=== PATIENT | male | born 1950 | race Caucasian/White ===

== ENCOUNTER → 2017-12-16 10:30 | Outpatient (CLI) | payer OTHER, MEDICARE, SELFPAY ==
--- NOTE | 2017-12-16 10:37 | RAD_ITS ---
STUDY: X-RAY CHEST REASON FOR EXAM: Male, 67 years old. Right lateral chest pain and clavicular pain following injury. TECHNIQUE: PA and lateral views of the chest. COMPARISON: Comparison is made with prior study dated June 28, 2016. FINDINGS: Diffuse subcutaneous emphysema is seen in the upper thoracic and cervical regions. There is evidence of increased markings at the lung bases suggestive of atelectasis. There is blunting of both cosmetic angles. There is thickening of the lateral aspect of the right pleura. Nondisplaced fractures of the right fourth fifth sixth and possible seventh rib fractures. Normal size heart. Normal mediastinum and liliam. Normal visualized pulmonary arteries. There is atherosclerotic tortuosity of the aortic arch and descending thoracic aorta. There is demineralization of the osseous structures. There is degenerative osteoarthritis of the bilateral shoulders. There is no demonstrated abnormality of the visualized soft tissue structures of the upper abdomen. RAD/Chest PA and Lateral IMPRESSION: Subcutaneous emphysema seen in the upper thoracic and cervical regions. Right sided rib fractures with pleural thickening along the lateral wall of the right hemithorax with blunting of both costophrenic angles. Increased markings at the lung bases most likely secondary to atelectasis. Electronically Signed: Sanju Davenport MD at 11:01 EDT Tel [phone], Service support ,
--- NOTE | 2018-01-02 09:59 | ED.DCSUM_ITS ---
- ER Visit Summary Date of Service: 01/02/18 Chief Complaint: [CT scan result] History of Present Illness: The patient is a 67 M [was seen in the emergency department on December 16 after trauma related to a cow and was fully evaluated by Dr. Chapo Galindo in the emergency department. Patient had a CT scan of his brain and chest at that time. The initial CT scan of the brain was read as no intracranial hemorrhage. Today while working in the emergency department I received a call from neuroradiologist who was doing a random review for quality in the patient's CT of the brain was reviewed which now is being interpreted as a 3 mm subdural hematoma. Patient was initially discharged from the emergency department and he had a follow-up appointment with his primary care physician Dr. Antoni Henning on December 28.] Physical Examination: [] Test Results: [] Emergency Department Course and Treatment: [I discussed the patient's case with Dr. Antoni Henning over the telephone this morning. Dr. Henning stated that patient was doing well on December 28 and did not have any concern for significant head injury. Patient will be made aware of findings and follow-up will take place per Dr. Antoni Henning.] Treatment Plan: [] Disposition: [] Impression: [Subdural hematoma-remote] This note was generated with [employer] dictation software. It may contain incorrect words, spelling, and punctuation that were not noted in review of the chart prior to signing
== END ==
PROVIDERS: Family Provider Family Medicine; PCP Family Medicine; Visit Provider Physician Assistant Surgical
DX: T79.7XXA Traumatic subcutaneous emphysema, initial encounter (principal); X58.XXXA Exposure to other specified factors, initial encounter; S22.41XA Multiple fractures of ribs, right side, initial encounter for closed fracture; M89.8X1 Other specified disorders of bone, shoulder
CPT/HCPCS: 71046

== ENCOUNTER 2017-12-16 11:48 | Emergency (ER) | payer OTHER, MEDICARE, SELFPAY ==
[2017-12-16 11:49] VITALS: BP 143/85; PULSE 86; RESP 16; TEMP 37.2; O2SAT 95; BMI 37.8
--- NOTE | 2017-12-16 12:32 | CT_ITS ---
STUDY: CT BRAIN WITHOUT CONTRAST REASON FOR EXAM: Male, 67 years old. Head injury. Episode of loss of consciousness. RADIATION DOSAGE (If Supplied By Facility): CTDIvol = ( 44.99 ) mGy, DLP = ( 812.98 ) mGycm TECHNIQUE: Transaxial CT imaging of the brain was performed without administration of intravenous contrast material. Individualized dose optimization techniques were used for this CT. COMPARISON: None. FINDINGS: There is evidence of air seen within the soft tissues overlying the left side of the upper cervical spine and anterior midportion. Less amount of air is seen within the soft tissues overlying the right side of the C1 vertebrae. Normal calvarium. Normal size ventricles and extra-axial spaces for the patient's age. Normal white matter tracts of the cerebral hemispheres. Normal basal ganglia and thalami. Normal brainstem. Normal cerebellum. There is no intracranial hemorrhage. There are no findings of an acute ischemic infarction. Normal visualized paranasal sinuses. CT/Brain/Head without Contrast IMPRESSION: Small amount of air within the soft tissues surrounding the anterior and left side of the upper cervical spine. This was seen on the chest radiograph. Electronically Signed: Sanju Davenport MD at 13:04 EDT Tel [phone], Service support ,
--- NOTE | 2017-12-16 12:32 | CT_ITS ---
STUDY: CT CHEST WITHOUT CONTRAST REASON FOR EXAM: Male, 67 years old. Chest injury. RADIATION DOSAGE (If Supplied By Facility): CTDIvol = ( 19.56 ) mGy, DLP = ( 694.06 ) mGycm TECHNIQUE: Transaxial imaging was performed without the administration of intravenous contrast material. Multiplanar coronal and sagittal images were reformatted. Individualized dose optimization techniques were used for this CT. COMPARISON: None. FINDINGS: There is evidence of subcutaneous emphysema involving the lower cervical and upper thoracic region extending into the upper thorax more prominent on the right side. This extends into the mediastinum surrounding the great vessels as well as the trachea and tracheal bifurcation. Air is also seen within the soft tissues overlying the right thoracic cavity. There is evidence of a atelectasis and/or infiltrate at the lung bases worse on the right side. There is no evidence of pneumothorax. There are calcifications of the coronary arteries. Normal mediastinum. Normal hilar regions. Normal unenhanced pulmonary arteries. There is atherosclerotic calcification of the aortic arch and descending thoracic aorta. There are multi-level degenerative changes of the thoracic spine. Nondisplaced fractures of the right fourth and fifth ribs anterolaterally. Os chest right is of both shoulder joints. There is no demonstrated abnormality of the visualized upper abdomen. CT/Chest without Contrast IMPRESSION: Subcutaneous emphysema in the cervical region as well as the anterior thorax more prominent on the right side. Pneumomediastinum. No pneumothorax. Bibasilar atelectasis worse on the right side. Nondisplaced right rib fractures. Electronically Signed: Sanju Davenport MD at 13:10 EDT Tel [phone], Service support ,
[2017-12-16 12:56] VITALS: O2SAT 96
--- NOTE | 2017-12-16 14:04 | ED.VISSUMM ---
- ER Visit Summary Date of Service: 12/16/17 Chief Complaint: [] History of Present Illness: The patient is a 67 M [] Physical Examination: [] Test Results: [] Emergency Department Course and Treatment: [] Treatment Plan: [] Disposition: [] Impression: [] This note was generated with [employer] dictation software. It may contain incorrect words, spelling, and punctuation that were not noted in review of the chart prior to signing ED Disposition - Plan for ED Patient: Chief Complaint: Trauma Referrals: Antoni Henning MD [Primary Care Provider] -
[2017-12-16 15:51] VITALS: BP 144/98; PULSE 86; RESP 16; O2SAT 98
== END 2017-12-16 15:55 | disposition short-term general hospital (02) ==
PROVIDERS: Emergency Provider Emergency Medicine; Family Provider Family Medicine; PCP Family Medicine
DX: T79.7XXA Traumatic subcutaneous emphysema, initial encounter (principal); S22.41XA Multiple fractures of ribs, right side, initial encounter for closed fracture; W55.22XA Struck by cow, initial encounter; Y93.89 Activity, other specified; Y92.007 Garden or yard of unspecified non-institutional (private) residence as the place of occurrence of the external cause; E11.9 Type 2 diabetes mellitus without complications; Z79.84 Long term (current) use of oral hypoglycemic drugs; Z79.899 Other long term (current) drug therapy; M89.8X1 Other specified disorders of bone, shoulder
CPT/HCPCS: 70450; 71046; 71250; 99284

== ENCOUNTER → 2017-12-28 08:59 | Outpatient (CLI) | payer OTHER, MEDICARE, SELFPAY ==
--- NOTE | 2017-12-28 09:05 | RAD_ITS ---
STUDY: X-RAY CHEST REASON FOR EXAM: Male, 67 years old. Abnormal breathing. Recent trauma. TECHNIQUE: Frontal and lateral views of the chest. COMPARISON: 12/16/2017. FINDINGS: There is hyperinflation of the lungs consistent with chronic obstructive lung disease (COPD). No infiltrates or effusions. There is no demonstrated pleural abnormality. Normal size heart. Normal mediastinum and liliam. Normal visualized pulmonary arteries. Normal visualized aortic arch and descending thoracic aorta. There are diffuse degenerative changes of the visualized thoracic spine. There is degenerative osteoarthritis of the bilateral shoulders. There is no demonstrated abnormality of the visualized soft tissue structures of the upper abdomen. RAD/Chest PA and Lateral IMPRESSION: There are findings consistent with COPD. There is no evidence of acute chest disease. Electronically Signed: Darrell Elliott MD at 17:04 EDT , Service support ,
== END ==
PROVIDERS: Family Provider Family Medicine; PCP Family Medicine; Visit Provider Family Medicine
DX: J98.2 Interstitial emphysema (principal)
CPT/HCPCS: 71046

== ENCOUNTER → 2018-02-23 07:12 | Outpatient (CLI) | payer OTHER, MEDICARE, SELFPAY ==
--- NOTE | 2018-02-23 07:14 | MRI_ITS ---
STUDY: MRI RIGHT SHOULDER REASON FOR EXAM: Shoulder pain and limited range of motion, injury 6 weeks ago. TECHNIQUE: Standardized fat and water weighted pulse sequences were obtained in all 3 orthogonal planes. COMPARISON: Radiographs 10/17/2014. FINDINGS: There is supraspinatus tendinosis and a small intrasubstance partial-thickness tear of the distal anterior supraspinatus tendon at the greater tuberosity insertion (T2 coronal image 14). Normal infraspinatus tendon. There is mild subscapularis tendinosis and a small intermediate grade undersurface partial-thickness tear of the distal superior fibers of the subscapularis tendon (proton-density axial image 16) measuring 0.6 cm in length. Normal teres minor tendon. Normal supraspinatus muscle. Normal infraspinatus muscle. Normal subscapularis muscle. Normal teres minor muscle. There is glenohumeral arthrosis with marginal osteophytes of the humeral head, subchondral cystic change/mild bone edema and chondral loss (T2 coronal images 9-13). There are intra-articular bodies in the subscapularis recess (proton-density coronal images 16-21) and at the posterior aspect of the glenohumeral joint (proton-density sagittal image 3). There is cystic change of the posterior aspect of the greater tuberosity. There is tendinosis of the intracapsular long biceps tendon (T2 sagittal images 13-16). There is diffuse degeneration of the labrum. There is acromioclavicular arthrosis with hypertrophic changes (T2 sagittal images 17, 18). There is a Type II morphology (curved), with a neutral orientation. There is no subacromial-subdeltoid bursal fluid. Normal visualized coracohumeral and coracoacromial ligaments. Normal deltoid muscle. Normal trapezius muscle. MRI/Upper Ext Joint Only(Routine) IMPRESSION: Small undersurface partial-thickness tear and mild tendinosis of the subscapularis tendon. Small intrasubstance partial-thickness tear and tendinosis of the supraspinatus tendon. Glenohumeral arthrosis with intra-articular bodies and degeneration of the labrum. Tendinosis of the long biceps tendon. Acromioclavicular arthrosis. Electronically Signed: Haja Arredondo MD at 9:16 EDT Tel , Service support ,
== END ==
PROVIDERS: Family Provider Family Medicine; PCP Family Medicine; Visit Provider Orthopaedic Surgery
DX: M75.121 Complete rotator cuff tear or rupture of right shoulder, not specified as traumatic (principal)
CPT/HCPCS: 73221

== ENCOUNTER → 2018-03-31 09:12 | Outpatient (CLI) | payer OTHER, MEDICARE, SELFPAY ==
[2018-03-31 13:01] LABS: Absolute Lymphocyte Count 1.25 X10^3/ul (0.83-4.51); Absolute Neutrophil Count 5.6 X10^3/uL (2.0-7.7); Basophil# 0.03 X10^3/uL; Basophil% 0.4 % (0-1); Eosinophil# 0.18 X10^3/uL; Eosinophils% 2.4 % (0-5); Hematocrit 41.7 % (40-54); Hemoglobin 13.6 g/dl (13.0-16.5); Lymphocyte # 1.25 X10^3/ul (4.0); Lymphocyte % 16.4 % (19-41); Mean Corp Hgb Conc 32.6 g/gl (32-36); Mean Corpuscular Hgb 27.5 pg (27.0-32.0); Mean Corpuscular Volume 84.4 fL (80-94); Mean Platelet Vol. 10.7 fl (6.2-12.0); Monocyte# 0.51 X10^3/uL; Monocyte% 6.7 % (0-10); Neutrophil # 5.63 X10^3/uL (2.7-7.7); Neutrophil % 73.7 % (47-70); Platelet Count 256 K/mm3 (150-450); RBC Distribution Width CV 16.1 % (11.6-14.6); RBC Distribution Width SD 49.7 fl (35.1-43.9); Red Blood Count 4.94 M/mm3 (4.6-6.2); White Blood Count 7.6 K/mm3 (4.4-11.0)
[2018-03-31 13:06] LABS: POSITIVE COUNT NO; POSITIVE DIFFERENTIAL NO; POSITIVE MORPHOLOGY NO
[2018-03-31 13:18] LABS: Anion Gap 11 (5-15); BUN 20 mg/dL (7-18); BUN/Creat Ratio 18.5 RATIO (10-20); Calcium,Total 9.6 mg/dL (8.5-10.1); Chloride 102 mmol/L (98-107); Creatinine, Serum 1.08 mg/dL (0.70-1.30); EST Glomerular Filtration Rate 72 mL/min (>60); Est Glom Filt Rate - Afr Amer 87 mL/min (>60); Ferritin 14 ng/mL (26-388); Glucose 249 mg/dL (74-106); Iron 61 ug/dL (65-175); Potassium 4.4 mmol/L (3.5-5.1); Sodium Level 138 mmol/L (136-145); Thyroid Stim Hormone (TSH) 0.51 uIU/mL (0.358-3.74)
== END ==
PROVIDERS: Visit Provider Family Medicine
DX: E61.1 Iron deficiency (principal); E11.9 Type 2 diabetes mellitus without complications; E78.5 Hyperlipidemia, unspecified; I10 Essential (primary) hypertension
CPT/HCPCS: 36415; 80048; 82728; 83540; 84443; 85025

== ENCOUNTER → 2018-04-28 06:39 | Outpatient (CLI) | payer OTHER, MEDICARE, SELFPAY ==
[2018-04-28 07:29] LABS: PSA,Total - Annual Screen 1.21 ng/mL (0.00-4.00)
== END ==
PROVIDERS: Family Provider Family Medicine; PCP Family Medicine; Visit Provider Nurse Practitioner Adult Health
DX: Z12.5 Encounter for screening for malignant neoplasm of prostate (principal); K80.80 Other cholelithiasis without obstruction; K57.30 Diverticulosis of large intestine without perforation or abscess without bleeding; N40.0 Benign prostatic hyperplasia without lower urinary tract symptoms; N20.0 Calculus of kidney; R31.0 Gross hematuria
CPT/HCPCS: 36415; 74178; 84153; Q9967; G0103

== ENCOUNTER → 2018-08-09 07:02 | Outpatient (CLI) | payer OTHER, MEDICARE, SELFPAY ==
[2018-08-09 10:30] LABS: Albumin, Serum 3.7 g/dL (3.2-5.0)
== END ==
PROVIDERS: Family Provider Family Medicine; PCP Family Medicine; Referring Provider Specialist; Visit Provider Specialist
DX: Z01.812 Encounter for preprocedural laboratory examination (principal)
CPT/HCPCS: 36415; 82040

== ENCOUNTER → 2018-09-29 09:39 | Outpatient (CLI) | payer OTHER, MEDICARE, SELFPAY ==
[2018-09-29 12:13] LABS: Absolute Lymphocyte Count 1.11 X10^3/ul (0.83-4.51); Absolute Neutrophil Count 4.2 X10^3/uL (2.0-7.7); Basophil# 0.03 X10^3/uL; Basophil% 0.5 % (0-1); Eosinophil# 0.24 X10^3/uL; Eosinophils% 3.9 % (0-5); Hematocrit 40.9 % (40-54); Hemoglobin 13.1 g/dl (13.0-16.5); Lymphocyte # 1.11 X10^3/ul (4.0); Lymphocyte % 17.9 % (19-41); Mean Corpuscular Hgb 27.7 pg (27.0-32.0); Mean Corpuscular Volume 86.5 fL (80-94); Mean Platelet Vol. 10.4 fl (6.2-12.0); Monocyte# 0.57 X10^3/uL; Monocyte% 9.2 % (0-10); Neutrophil # 4.23 X10^3/uL (2.7-7.7); Neutrophil % 68.3 % (47-70); Platelet Count 279 K/mm3 (150-450); RBC Distribution Width SD 47.2 fl (35.1-43.9); Red Blood Count 4.73 M/mm3 (4.6-6.2); White Blood Count 6.2 K/mm3 (4.4-11.0)
[2018-09-29 12:20] LABS: POSITIVE COUNT NO; POSITIVE DIFFERENTIAL NO; POSITIVE MORPHOLOGY NO
[2018-09-29 12:35] LABS: Anion Gap 10 (5-15); BUN 15 mg/dL (7-18); BUN/Creat Ratio 19.4 RATIO (10-20); Calcium,Total 9.4 mg/dL (8.5-10.1); Chloride 105 mmol/L (98-107); Creatinine, Serum 0.77 mg/dL (0.70-1.30); EST Glomerular Filtration Rate 106 mL/min (>60); Est Glom Filt Rate - Afr Amer 129 mL/min (>60); Ferritin 20 ng/mL (26-388); Glucose 123 mg/dL (74-106); Iron 73 ug/dL (65-175); Potassium 4.5 mmol/L (3.5-5.1); Sodium Level 140 mmol/L (136-145); Thyroid Stim Hormone (TSH) 0.51 uIU/mL (0.358-3.74)
== END ==
PROVIDERS: Family Provider Family Medicine; PCP Family Medicine; Visit Provider Family Medicine
DX: E11.9 Type 2 diabetes mellitus without complications (principal); I10 Essential (primary) hypertension; E78.5 Hyperlipidemia, unspecified
CPT/HCPCS: 36415; 80048; 82728; 83540; 84443; 85025

== ENCOUNTER 2018-11-03 07:00 | Outpatient (RCR) | payer OTHER, MEDICARE, SELFPAY ==
--- NOTE | 2018-08-30 08:05 | HP.PTEVAL_ITS ---
Patient's Visit Information AVERY VASQUEZ is a 68 year old M referred to Physical Therapy by TEDDY Munguia with a diagnosis of R TSA. Date of Evaluation: 08/30/18 Physical Therapist: Pee Saucedo PT, ATC - Visit Plan Frequency: 2-3x /Week Duration: 4-6 Weeks Plan: P/AROM x 4 weeks, then transition to strengthening as tolerated. CP for pain - Subjective Findings: DOS: 08/15/18. Pt reports he had chronic R shoulder pain for several years. 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 Pt reports he thought he was going to have a rot cuff repair, but instead needed to have a total shoulder replacement. Pt reports he is doing well at this point as he has had very little pain. Pt reports he still has sleep difficulty as he has a hard time sleeping in his recliner. Pt is R hand dominant. Pt reports he has been taking his arm out of the sling while at home and can mostly get himself dressed, but is still limited with many ADL's. 0/10 pain at rest, 1/10 pain at worst over the last 3-4 days. - Pain R TSA Pain Intensity (Out of 10): 0 Pain Intensity Range: 1 - Objective Neuro: B UE sensation is WNL to light touch. Observation: Incisions are healing well with no signs of infection. ROM: R shoulder flex= 130 degrees, scap= 135 degrees. L shoulder AROM: flex= 140, abd= 140, IR WNL, ER 30 degrees. MMT: R shoulder not tested.. 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 Goal Time Frame: 4-6 Weeks Goal 4:: I with HEP Goal Time Frame: 4-6 Weeks - Rehabilitation Potential Physical Therapy Diagnosis: R shoulder pain, weakness, and limited ROM secondary to R TSA Rehabilitation Potential: Good - Anticipated Interventions Patient/Client Instruction: Educate patient on: Condition, Plan of Care For the Purpose of:: To improve self management Therapeutic Exercise to Include: Strength training, Body mechanics, Postural training, Flexibilty training, Passive ROM, Active ROM, Scapular Strength/Stabilization For the Purpose of:: To decrease pain, To increase ROM, To improve muscle performance and motor function Cryotherapy (ice pack, ice massage): Yes For the Purpose of:: To decrease pain Thank you for the opportunity to evaluate your patient. For Medicare and Medicare HMO plans, please review the plan of care and approve it. It will need to be FAXED BACK to us at [phone] for Medicare purposes. For Medicare only, by signing this I certify the plan of care. Please let me know if there are questions or concerns regarding this plan of care. Physician Signature: Da te:
--- NOTE | 2018-10-11 08:36 | HP.PTREVAL ---
TEDDY Munguia, It has been my pleasure to treat AVERY VASQUEZ over the last 18 visits for R TSA. Please see the progress note below for an update on the physical therapy plan of care! Subjective: Hardly no pain this date Objective/Function: R shoulder pain 09/14. R shoulder ROM: flex= 125, abd= 107, ER= 0, IR= minimally limited. R shoulder strength: Pt is 4+/5 in R UE with the exception of ER= 4-/5. 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 Goal Time Frame: 4-6 Weeks Goal 4:: I with HEP Goal Time Frame: 4-6 Weeks Anticipated Interventions Patient/Client Instruction: Educate patient on: Condition, Plan of Care For the Purpose of:: To improve self management Therapeutic Exercise to Include: Strength training, Body mechanics, Postural training, Flexibilty training, Passive ROM, Active ROM, Scapular Strength/Stabilization For the Purpose of:: To decrease pain, To increase ROM, To improve muscle performance and motor function Cryotherapy (ice pack, ice massage): Yes For the Purpose of:: To decrease pain Please do not hesitate to contact me at [phone] by phone or if you have questions or concerns regarding this new plan of care! Sincerely, Pee Saucedo, PT, ATC
--- NOTE | 2018-11-03 07:28 | HP.PTDCSUM ---
HP - PT D/C Summary It has been my pleasure to treat AVERY VASQUEZ under orders from TEDDY Munguia, for the diagnosis of R TSA for a total of 24 visit(s). Discharge Date: Please see the following information for a summary of their discharge status. - Subjective Subjective: Pt reports he feels really good. Still has difficulty with putting on his seatbelt. - Pain R TSA Pain Intensity (Out of 10): 0 - Overall Improvement % Improvement: 80 - Objective Objective/Function: R shoulder ROM: Flex= 130, abd= 110, ER= 0, IR= minimally limited. R shoulder MMT: ER is 4+/5. All other motions are 5/5 throughout. pain is 0/10, Increases to 3/10 when he moves it wrong. pt is I with HEP. 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 Thank you for the referral of this patient. Sincerely, Pee Saucedo, PT, ATC
== END 2018-11-03 07:57 | disposition home or self-care (01) ==
LOC: PT 07:00
PROVIDERS: Family Provider Family Medicine; PCP Family Medicine; Referring Provider Physician Assistant Surgical; Visit Provider Physician Assistant Surgical
DX: M19.011 Primary osteoarthritis, right shoulder (principal); S46.011D Strain of muscle(s) and tendon(s) of the rotator cuff of right shoulder, subsequent encounter
CPT/HCPCS: 97110; 97140; 97161; 97530

== ENCOUNTER → 2019-07-02 | Outpatient (CLI) | payer OTHER, MEDICARE, SELFPAY ==
[2019-07-02 17:17] LABS: Anion Gap 6 (5-15); BUN 21 mg/dL (7-18); BUN/Creat Ratio 23.6 RATIO (10-20); Calcium,Total 9.4 mg/dL (8.5-10.1); Chloride 105 mmol/L (98-107); Creatinine, Serum 0.89 mg/dL (0.70-1.30); EST Glomerular Filtration Rate 90 mL/min (>60); Est Glom Filt Rate - Afr Amer 109 mL/min (>60); Glucose 132 mg/dL (74-106); Potassium 4.1 mmol/L (3.5-5.1); Sodium Level 140 mmol/L (136-145)
== END | disposition home or self-care (01) ==
LOC: BFHLAB 14:56
PROVIDERS: Family Provider Family Medicine; PCP Family Medicine; Visit Provider Family Medicine
DX: I10 Essential (primary) hypertension (principal)
CPT/HCPCS: 36415; 80048

== ENCOUNTER → 2020-04-15 08:45 | Outpatient (CLI) | payer MEDICARE, OTHER, SELFPAY ==
[2020-04-15 12:24] LABS: Absolute Lymphocyte Count 1.43 X10^3/uL (0.83-4.51); Absolute Neutrophil Count 4.4 X10^3/uL (2.0-7.7); Basophil# 0.05 X10^3/uL; Basophil% 0.7 % (0-1); Eosinophil# 0.31 X10^3/uL; Eosinophils% 4.6 % (0-5); Hematocrit 39.4 % (40-54); Hemoglobin 12.2 g/dL (13.0-16.5); Lymphocyte # 1.43 X10^3/ul (4.0); Mean Corpuscular Hgb 26.8 pg (27.0-32.0); Mean Corpuscular Volume 86.6 fL (80-94); Mean Platelet Vol. 10.4 fl (6.2-12.0); Monocyte# 0.58 X10^3/uL; Monocyte% 8.5 % (0-10); NRBC Flagged by Analyzer 0 % (0-5); Neutrophil # 4.42 X10^3/uL (2.7-7.7); Neutrophil % 64.9 % (47-70); Platelet Count 292 K/mm3 (150-450); RBC Distribution Width CV 15.2 % (11.6-14.6); RBC Distribution Width SD 47.8 fl (35.1-43.9); Red Blood Count 4.55 M/mm3 (4.6-6.2); White Blood Count 6.8 K/mm3 (4.4-11.0)
[2020-04-15 12:50] LABS: Hemoglobin A1c 6.9 % (3.8-5.6)
[2020-04-15 13:13] LABS: ALB/GLOB Ratio 0.9 RATIO (0.9-2.4); AST(SGOT) 15 U/L (15-37); Alanine Aminotransfer ALT/SGPT 34 U/L (16-61); Albumin, Serum 3.6 g/dL (3.2-5.0); Alkaline Phosphatase 96 U/L (45-117); Anion Gap 11 (5-15); BUN 19 mg/dL (7-18); BUN/Creat Ratio 21.6 RATIO (10-20); Calcium,Total 9.2 mg/dL (8.5-10.1); Chloride 103 mmol/L (98-107); Cholesterol 140 mg/dL (200); Creatinine, Serum 0.88 mg/dL (0.70-1.30); EST Glomerular Filtration Rate 91 mL/min (>60); Est Glom Filt Rate - Afr Amer 110 mL/min (>60); Globulin 3.8 g/dL (2.2-4.2); Glucose 145 mg/dL (74-106); High Density Lipoprotein 55 mg/dL; PSA,Total - Annual Screen 1.25 ng/mL (0.00-4.00); Potassium 4.3 mmol/L (3.5-5.1); Protein, Total 7.4 g/dL (6.4-8.2); Sodium Level 137 mmol/L (136-145); Triglycerides 54 mg/dL; Very Low Density Lipoprotein 11 mg/dL (5-40)
== END ==
PROVIDERS: PCP Family Medicine; Visit Provider Family Medicine
DX: E11.9 Type 2 diabetes mellitus without complications (principal); E78.5 Hyperlipidemia, unspecified; E61.1 Iron deficiency; I10 Essential (primary) hypertension; Z12.5 Encounter for screening for malignant neoplasm of prostate; Z80.42 Family history of malignant neoplasm of prostate
CPT/HCPCS: 36415; 80053; 80061; 83036; 84153; 85025; G0103

== ENCOUNTER → 2020-07-21 09:40 | Outpatient (CLI) | payer MEDICARE, OTHER, SELFPAY ==
[2020-07-21 12:35] LABS: Absolute Neutrophil Count 3.7 X10^3/uL (2.0-7.7); Basophil# 0.05 X10^3/uL; Basophil% 0.9 % (0-1); Eosinophil# 0.14 X10^3/uL; Eosinophils% 2.5 % (0-5); Hematocrit 41.7 % (40-54); Hemoglobin 12.8 g/dL (13.0-16.5); Lymphocyte % 21.2 % (19-41); Mean Corp Hgb Conc 30.7 g/dL (32-36); Mean Corpuscular Hgb 26.8 pg (27.0-32.0); Mean Corpuscular Volume 87.4 fL (80-94); Mean Platelet Vol. 10.4 fl (6.2-12.0); Monocyte# 0.54 X10^3/uL; Monocyte% 9.5 % (0-10); NRBC Flagged by Analyzer 0 % (0-5); Neutrophil # 3.73 X10^3/uL (2.7-7.7); Neutrophil % 65.7 % (47-70); Platelet Count 278 K/mm3 (150-450); RBC Distribution Width CV 14.9 % (11.6-14.6); RBC Distribution Width SD 48.3 fl (35.1-43.9); Red Blood Count 4.77 M/mm3 (4.6-6.2); White Blood Count 5.7 K/mm3 (4.4-11.0)
[2020-07-21 13:01] LABS: Ferritin 14 ng/mL (26-388); Iron 68 ug/dL (65-175)
[2020-07-21 14:09] LABS: Vitamin B12 600 pg/mL (211-911)
== END ==
PROVIDERS: PCP Family Medicine; Visit Provider Family Medicine
DX: D64.9 Anemia, unspecified (principal)
CPT/HCPCS: 36415; 82607; 82728; 83540; 85025

== ENCOUNTER → 2020-11-17 09:55 | Outpatient (CLI) | payer MEDICARE, OTHER, SELFPAY ==
[2020-11-17 12:36] LABS: Absolute Lymphocyte Count 1.25 X10^3/uL (0.83-4.51); Absolute Neutrophil Count 4.1 X10^3/uL (2.0-7.7); Basophil# 0.03 X10^3/uL; Basophil% 0.5 % (0-1); Eosinophil# 0.27 X10^3/uL; Eosinophils% 4.4 % (0-5); Hematocrit 44.6 % (40-54); Hemoglobin 14.5 g/dL (13.0-16.5); Lymphocyte # 1.25 X10^3/ul (4.0); Lymphocyte % 20.6 % (19-41); Mean Corp Hgb Conc 32.5 g/dL (32-36); Mean Corpuscular Hgb 28.9 pg (27.0-32.0); Mean Corpuscular Volume 88.8 fL (80-94); Mean Platelet Vol. 10.5 fl (6.2-12.0); Monocyte# 0.46 X10^3/uL; Monocyte% 7.6 % (0-10); NRBC Flagged by Analyzer 0 % (0-5); Neutrophil # 4.06 X10^3/uL (2.7-7.7); Neutrophil % 66.7 % (47-70); Platelet Count 246 K/mm3 (150-450); RBC Distribution Width CV 14.4 % (11.6-14.6); RBC Distribution Width SD 46.5 fl (35.1-43.9); Red Blood Count 5.02 M/mm3 (4.6-6.2); White Blood Count 6.1 K/mm3 (4.4-11.0)
[2020-11-17 12:58] LABS: Anion Gap 3 (5-15); BUN 19 mg/dL (7-18); Calcium,Total 9.8 mg/dL (8.5-10.1); Chloride 105 mmol/L (98-107); EST Glomerular Filtration Rate 88 mL/min (>60); Est Glom Filt Rate - Afr Amer 107 mL/min (>60); Ferritin 32 ng/mL (26-388); Glucose 128 mg/dL (74-106); Iron 103 ug/dL (65-175); Potassium 4.4 mmol/L (3.5-5.1); Sodium Level 136 mmol/L (136-145)
== END ==
PROVIDERS: PCP Family Medicine; Visit Provider Family Medicine
DX: I10 Essential (primary) hypertension (principal); E61.1 Iron deficiency
CPT/HCPCS: 36415; 80048; 82728; 83540; 85025

== ENCOUNTER → 2021-12-30 | Outpatient (CLI) | payer MEDICARE, OTHER, SELFPAY ==
--- NOTE | 2021-12-30 07:16 | CT_ITS ---
STUDY: CT LEFT SHOULDER REASON FOR EXAM: Male, 71 years old. LFT SHOULDER OSTEOARTHRITIS RADIATION DOSAGE (If Supplied By Facility): CTDIvol = ( 33.23 ) mGy, DLP = ( 694.63 ) mGycm TECHNIQUE: The patient was scanned in a multi detector CT scanner. High resolution transaxial imaging was performed without the administration of intravenous contrast material. Sagittal and coronal images were reconstructed. Individualized dose optimization techniques were used for this CT. COMPARISON: X-ray 10/25/2014 FINDINGS: There is severe osteoarthritis, with severe articular joint space narrowing, osteoarthritic spurring, articular remodeling, and with articular erosions. Normal glenoid rim, neck and visualized scapula. Normal humeral head, neck and tuberosities. Normal coracoid process. Normal visualized lateral clavicle. There is mild osteoarthritis with articular joint space narrowing. There is a Type II morphology (curved), with a neutral orientation. Normal visualized muscles and soft tissue structures. CT/Extremity Upper without Contra IMPRESSION: Severe glenohumeral joint arthrosis. Electronically Signed: Narinder Mack MD at 17:06 EDT ,
== END | disposition home or self-care (01) ==
PROVIDERS: PCP Family Medicine; Referring Provider Specialist; Visit Provider Specialist
DX: M19.021 Primary osteoarthritis, right elbow (principal)
CPT/HCPCS: 73200

== ENCOUNTER → 2022-02-15 | Outpatient (CLI) | payer MEDICARE, OTHER, SELFPAY ==
--- NOTE | 2022-02-05 12:23 | HP.PCM_ITS ---
History and Physical History and Physical [facility] Patient Name: Nicola Crews : 1950 From: KUMAR ZAFAR PA-C DATE OF SURGERY: 02/24/2022 SCHEDULED PROCEDURE: left reverse total shoulder arthroplasty HISTORY OF PRESENT ILLNESS: Preoperative history and physical exam was performed on February 05, 2022. This is a 71-year-old male who is been having ongoing left shoulder pain for nearly 1 year. Patient is right-hand dominant. He has undergone a previous right reverse total shoulder arthroplasty by Dr. Mario Lopez on August 15, 2018. His left shoulder has been giving him trouble over the anterior and posterior shoulder. Pain does occasionally wake him at nighttime. Pain can reach as high as an 8/10 with activities. Pain is increased with any overhead motion as well as driving. Difficulty getting dressed due to the pain. Patient does feel his motion is limited. He has tried conservative measures including [id number] nonsteroidal anti-inflammatory and rest. Patient is currently working with dentist as he had a tooth extraction and was initially placed on antibiotics. He is in the process of getting a bridge placement. He currently denies any active infection. No fevers or chills at home. Denies any chest pain, shortness of breath, fevers chills. Patient denies any history of pulmonary embolism or DVTs. He has medical history pertinent for hypertension and type 2 diabetes mellitus. After failing conservative measures and discussing treatment options with Dr. Mario Lopez, the patient does wish to proceed with a left reverse total shoulder arthroplasty. We are obtaining surgical clearance from the primary care physician Dr. Adam. We are also sending clearance to the dentist from his previous tooth infection. REVIEW OF SYSTEMS: Review Of Systems: Constitutional: Denies anorexia, change in appetite, fever, difficulty sleeping, weight change. Cardiovasular: Denies chest pain, heart murmur, irregular heartbeat and peripheral vascular disease. Respiratory: Denies asthma, cough, pneumonia, sleep apnea, shortness of breath, tuberculosis and wheezing. Gastrointestinal: Denies constipation, diarrhea, heartburn, nausea, rectal itching, bloody stools and vomiting. Genitourinary: Denies incontinence. Musculoskeletal: Denies leg swelling, pain, trouble walking and weakness. Skin: Denies Raynaud's, history of shingles and tattoo. Neurological: Denies ambulatory dysfunction, dizziness, numbness/tingling and tremor. Psychiatric: Denies anxiety, depression, insomnia, mental illness and stress. Hematologic/Lymphatic: Reports bleeding/bruising tendency, but denies anemia and past transfusion. Reviewed and updated. 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 SOCIAL HISTORY: Social History: Marital: .Occupation: Retired.Work Status: Retired.Hand Dominance: Right- handed. Personal Habits: Tobacco Use: Patient has never smoked.Cigarette Use: Never.Smokeless Tobacco: Never Used Smokeless Tobacco.E-Cigarette Use: Never used.Alcohol: Occasionally.Drug Use: Denies Use.Enjoy Exercising: Never Exercises. Reviewed, no changes. VITALS: Ht: 68 Wt: 240lb Wt k.864 BMI: 36.5 BP: 138/92 Pulse: 73 Resp: 12 T: 97.5 T: 36.4C Pain Level: 0 O2SatR: 96 ALLERGIES: Vicodin - Stomach Upset Tramadol - Stomach Upset Bactrim MEDICATIONS: Zofran 4 mg 1-2 by mouth every 8 as needed nausea, Famotidine 20 mg 1 by mouth every day, Lisinopril 10 mg 1 po qDAY, Metformin HCL 500 mg 1 tab PO bid, Atorvastatin Calcium 10mg 1 tab PO daily, Multivitamins 1 tab PO daily, Calcium 600 + D 600-400 MG-Unit 1 tab PO daily, Glimepiride 2 mg 1po qday, [facility] Aspirin 325 mg take 1 tablet by mouth every day, Ibuprofen 200 200 mg 600 mg by mouth 1x/day PRE-OP EXAM: General appearance:NORMAL Other: Eyes: Conjunctivae and lids: NORMAL Pupils: ERR Ears, Nose, Mouth, and Throat: NORMAL Other: Inspection of lips, teeth and gums: NORMAL Other: Neck: Examination of neck: no masses noted. Respiratory: Assessment of respiratory effort: NORMAL Other: Auscultation of lungs: clear to auscultation no wheezes, rhonchi or rales. Cardiovascular: Auscultation of heart: regular rate and rhythm, no murmurs, gallops or rubs. PHYSICAL EXAMINATION: On exam this is a pleasant 71-year-old male. Left shoulder is cool to touch without erythema or signs of infection. He has minimal atrophy. Range of motion: Forward elevation approximately 135, external rotation neutral, internal rotation L4 on the left at L3 on the right. 4/5 supraspinatus strength on the left. Sensation intact to light touch in axillary, radial, median, ulnar nerve distribution. IMAGING STUDIES: Previous x-rays the left shoulder reveal severe glenohumeral joint space narrowing with central bony erosion. There is anterior inferior glenoid wear. Large inferior osteophyte and intra-articular loose body. IMPRESSION: 1. Severe left shoulder glenohumeral osteoarthritis 2. Presence of right reverse total for arthroplasty: August 16, 2018 3. Hypertension 4. Type 2 diabetes mellitus 5. Hypercholesterolemia PLAN: Dr. Mario Lopez did discuss and review with the patient all treatment options including surgical versus nonsurgical options. Patient does wish to proceed with the above-stated procedure. Potential risks, benefits, and complications of the procedure were discussed in detail including but not limited to , infection, nerve and blood vessel damage, persistent pain, numbness, tingling, paresthesias, blood clot, pulmonary embolism, and requirement for possible further surgery. The patient expressed full understanding and has no further questions for the doctor. Patient does agree to proceed with the above-stated procedure and has signed the surgery consent form. Patient will undergo preoperative lab work and EKG. Appropriate clearances are being obtained. We discussed the current risks associated with COVID 19. This does include the risk of exposure while in the hospital. Patient was reassured local hospitals have low infection rates and are taking all necessary precautions to avoid exposure to patients. In addition, we discussed strategies that can be used to help limit exposure including those that limit the patient's time in the hospital. Also using strategies to limit the patient's need for continued inpatient services after being discharged from the hospital. Patient was notified that we will need to comply with any screening or testing the hospital wishes to perform or that surgery may be delayed for any positive results. This dictation was created using voice recognition software. Phonetic and/or grammatical errors may exist. ___ I have re-examined the patient. There are no clinical changes since date of exam. ___ See progress notes for changes. ___ Dictated on admission Date: Time: Signature:
--- NOTE | 2022-02-15 06:59 | EKG12_ITS ---
Test Reason : PREOP Blood Pressure : / mmHG Vent. Rate : 067 BPM Atrial Rate : 067 BPM P-R Int : 188 ms QRS Dur : 108 ms QT Int : 394 ms P-R-T Axes : 048 -27 033 degrees QTc Int : 416 ms Normal sinus rhythm Normal ECG Confirmed by JENNIFFER IBANEZ, MATTHEW ([id number]), editor producer BEN SHARMA ([id number]) on 02/15/2022 11:26:19 AM Referred By: Mario Lopez Confirmed By:MATTHEW ABAD MD
[2022-02-15 07:37] LABS: Absolute Lymphocyte Count 1.63 X10^3/uL (0.83-4.51); Absolute Neutrophil Count 3.1 X10^3/uL (2.0-7.7); Basophil# 0.04 X10^3/uL; Basophil% 0.7 % (0-1); Eosinophil# 0.28 X10^3/uL; Hematocrit 42.4 % (40-54); Hemoglobin 13.8 g/dL (13.0-16.5); Lymphocyte # 1.63 X10^3/ul (0.83-4.51); Lymphocyte % 29.3 % (19-41); Mean Corp Hgb Conc 32.5 g/dL (32-36); Mean Corpuscular Hgb 29.5 pg (27.0-32.0); Mean Corpuscular Volume 90.6 fL (80-94); Mean Platelet Vol. 9.6 fl (6.2-12.0); NRBC Flagged by Analyzer 0 % (0-5); Neutrophil # 3.09 X10^3/uL (2.7-7.7); Neutrophil % 55.6 % (47-70); Platelet Count 227 K/mm3 (150-450); RBC Distribution Width CV 13.5 % (11.6-14.6); RBC Distribution Width SD 45.2 fl (35.1-43.9); Red Blood Count 4.68 M/mm3 (4.6-6.2); White Blood Count 5.6 K/mm3 (4.4-11.0)
[2022-02-15 07:52] LABS: Hemoglobin A1c 7.6 % (3.8-5.6)
[2022-02-15 07:54] LABS: Albumin, Serum 3.6 g/dL (3.2-5.0); Anion Gap 3 (5-15); BUN 22 mg/dL (7-18); BUN/Creat Ratio 25.7 RATIO (10-20); Calcium,Total 9.7 mg/dL (8.5-10.1); Chloride 107 mmol/L (98-107); Creatinine, Serum 0.86 mg/dL (0.70-1.30); EST Glomerular Filtration Rate 93 mL/min (>60); Est Glom Filt Rate - Afr Amer 113 mL/min (>60); Glucose 145 mg/dL (74-106); Potassium 4.7 mmol/L (3.5-5.1); Sodium Level 138 mmol/L (136-145)
[2022-02-15 08:17] LABS: Magnesium 1.6 mg/dL (1.6-2.6)
== END | disposition home or self-care (01) ==
LOC: PAT 03-16 14:25
PROVIDERS: Anesthesiology; PCP Family Medicine; Referring Provider Specialist; Visit Provider Specialist
DX: Z01.818 Encounter for other preprocedural examination (principal)
CPT/HCPCS: 36415; 80048; 82040; 83036; 83735; 85025; 87081; 93005

== ENCOUNTER 2022-05-28 08:00 | Outpatient (RCR) | payer MEDICARE, OTHER, SELFPAY ==
--- NOTE | 2022-03-24 16:01 | HP.PTEVAL_ITS ---
Patient's Visit Information AVERY VASQUEZ is a 72 year old M referred to Physical Therapy by BERT RAI with a diagnosis of L TSA 03/19/22. Date of Evaluation: 03/24/22 Physical Therapist: Pee Saucedo PT, ATC - Visit Plan Frequency: 2-3x /Week Duration: 4-6 Weeks Plan: L shoulder PROM x 2 weeks, then progress to AROM for a few weeks. Ptogress to strengthening when appropriate. - Subjective DOS: 03/19/22. Pt reports he had L shoulder pain for a chronic period of time. Pt had L TSA performed at that time. Pt reports he is glad to have had the surgery, but notes he is in a lot of pain today. Pt reports he had R TSA in 08/2018, Pt r eports he has been icing his L shoulder in order to help decrease his pain. Pt also notes he has a lot of bruising present at this time. Pt reports occasional sleep difficulty secondary to pain as he still has to sleep in his recliner. Pt is R hand dominant. Pt reports his only limitations at this time are to not move or lift objects with L UE at this time. Pt is currently retired. 1/[address] in L shoulder, 8/10 pain at worst (when he attempts to stand aft sitting in a chair sore a while - Objective Neuro: B UE sensation is WNL to light touch. B patellar reflex= 2/3. Observation: Significant discoloration throughout chest and L UE. No obvious signs of infection. ROM: R shoulder AROM: flex= 150, abd= 110, ER= 0, IR WFL: L shoulder PROM: flex 50, abd= 70. IR/ER= 0. MMT: R shoulder is 5/5 throughout. L shoulder not tested. - Balance/Special Test Scores Quick DASH Score: 61.3625 - Goals Goal 1:: Decrease L shoulder pain x 50% to aid with sleep Goal Time Frame: 4-6 Weeks Goal 2:: Increase L shoulder ROM x 40 degrees to aid with overhead lifting Goal Time Frame: 4-6 Weeks Goal 3:: Increase L shoulder strength x 1 grade to aid with IADL's Goal Time Frame: 4-6 Weeks Goal 4:: I with HEP Goal Time Frame: 4-6 Weeks - Rehabilitation Potential Physical Therapy Diagnosis: Pt has L shoulder pain, weakness, and limited ROM secondary to L TSA Rehabilitation Potential: Good - Anticipated Interventions Patient/Client Instruction: Educate patient on: Condition, Plan of Care For the Purpose of:: To improve self management Therapeutic Exercise to Include: Strength training, Endurance training, Passive ROM, Active ROM, Scapular Strength/Stabilization For the Purpose of:: To decrease pain, To increase ROM, To improve muscle pe rformance and motor function Cryotherapy (ice pack, ice massage): Yes For the Purpose of:: To decrease pain Thank you for the opportunity to evaluate your patient. For Medicare and Medicare HMO plans, please review the plan of care and approve it. It will need to be FAXED BACK to us at [phone] for Medicare purposes. For Medicare only, by signing this I certify the plan of care. Please let me know if there are questions or concerns regarding this plan of care. Physician Signature: Date:
--- NOTE | 2022-04-21 08:33 | HP.PTREVAL ---
BERT RAI, It has been my pleasure to treat AVERY VASQUEZ over the last 10 visits for L TSA 03/19/22. Please see the progress note below for an update on the physical therapy plan of care! Subjective: I dont have any pain right now. I am still getting better. Objective/Function: L shoulder pain 0/10 currently, elevates to 4/10 at worst. L shoulder AROM: flex= 115, abd= 70, ER= 0, IR severely limited. L shoulder MMT: flex= 9, abd= 18, ER= 12, IR= 14. R shoulder MMT: flex= 17, abd= 29, ER= 11, IR= 20. Pt is making sig maldonado at this time. Plan Plan: L shoulder PROM x 2 weeks, then progress to AROM for a few weeks. Ptogress to strengthening when appropriate. Balance/Gait/Functional tests - Balance/Special Test Scores Quick DASH Score: 27.2725 Goals Goal 1:: Decrease L shoulder pain x 50% to aid with sleep Goal Time Frame: 4-6 Weeks Goal Progress: Progressing Goal 2:: Increase L shoulder ROM x 40 degrees to aid with overhead lifting Goal Time Frame: 4-6 Weeks Goal Progress: Progressing Goal 3:: Increase L shoulder strength x 5-10 #F to aid with IADL's Goal Time Frame: 4-6 Weeks Goal Progress: New goal Goal 4:: I with HEP Goal Time Frame: 4-6 Weeks Goal Progress: Progressing Anticipated Interventions Patient/Client Instruction: Educate patient on: Condition, Plan of Care For the Purpose of:: To improve self management Therapeutic Exercise to Include: Strength training, Endurance training, Passive ROM, Active ROM, Scapular Strength/Stabilization For the Purpose of:: To decrease pain, To increase ROM, To improve muscle performance and motor function Cryotherapy (ice pack, ice massage): Yes For the Purpose of:: To decrease pain Please do not hesitate to contact me at [phone] by phone or if you have questions or concerns regarding this new plan of care! Sincerely, Pee Saucedo, PT, ATC
--- NOTE | 2022-05-28 08:37 | HP.PTDCSUM_ITS ---
It has been my pleasure to treat AVERY VASQUEZ referred by BERT RAI, with the diagnosis of L TSA 03/19/22 for a total of 23 visit(s). Discharge Date: Please see the following information for a summary of their discharge status. Subjective: I dont have any pain today. I feel ready to be done L shoulder Pain Intensity (Out of 10): 0 % Improvement: 85 Objective/Function: MMT: L shoulder flex= 12, abd= 18, ER= 17, IR= 24 #F. ROM: flex= 120, abd= 110, ER= 0, IR WNL. L shoulder pain 0/10. Pt is I with HEP Goal 1:: Decrease L shoulder pain x 50% to aid with sleep Goal Progress: Progressing Goal 2:: Increase L shoulder ROM x 40 degrees to aid with overhead lifting Goal Progress: Progressing Goal 3:: Increase L shoulder strength x 5-10 #F to aid with IADL's Goal Progress: New goal Goal 4:: I with HEP Goal Progress: Progressing Plan: Discharge to [facility] If there are questions or concerns regarding this patient's physical therapy, please feel free to call me at [phone]. Thank you for the referral of this patient. Sincerely, Pee Saucedo, PT, ATC Balance/Gait/Functional tests - Balance/Special Test Scores Quick DASH Score: 6.8175
== END 2022-05-28 09:58 | disposition home or self-care (01) ==
LOC: PT 08:00
PROVIDERS: PCP Family Medicine
DX: M19.012 Primary osteoarthritis, left shoulder (principal)
CPT/HCPCS: 97110; 97140; 97161; 97164

== ENCOUNTER → 2022-09-22 | Outpatient (CLI) | payer MEDICARE, OTHER, SELFPAY ==
[2022-09-22 12:28] LABS: Absolute Lymphocyte Count 1.41 X10^3/uL (0.83-4.51); Absolute Neutrophil Count 5.4 X10^3/uL (2.0-7.7); Basophil# 0.08 X10^3/uL; Basophil% 1.1 % (0-1); Eosinophil# 0.25 X10^3/uL; Eosinophils% 3.3 % (0-5); Hematocrit 43.3 % (40-54); Hemoglobin 14.3 g/dL (13.0-16.5); Lymphocyte # 1.41 X10^3/ul (0.83-4.51); Lymphocyte % 18.6 % (19-41); Mean Corpuscular Hgb 29.3 pg (27.0-32.0); Mean Corpuscular Volume 88.7 fL (80-94); Mean Platelet Vol. 10.2 fl (6.2-12.0); Monocyte# 0.48 X10^3/uL; Monocyte% 6.3 % (0-10); NRBC Flagged by Analyzer 0 % (0-5); Neutrophil # 5.35 X10^3/uL (2.7-7.7); Neutrophil % 70.4 % (47-70); Platelet Count 278 K/mm3 (150-450); RBC Distribution Width CV 14.1 % (11.6-14.6); RBC Distribution Width SD 45.3 fl (35.1-43.9); Red Blood Count 4.88 M/mm3 (4.6-6.2); White Blood Count 7.6 K/mm3 (4.4-11.0)
[2022-09-22 13:07] LABS: Hemoglobin A1c 7.7 % (3.8-5.6)
[2022-09-22 13:09] LABS: Vitamin B12 682 pg/mL (211-911); Vitamin D,25 Hydroxy 32.2 ng/mL
[2022-09-22 13:14] LABS: Microalbumin,Random Urine 14.6 mg/L (NO RANGE EST.); Microalbumin:Creatinine Ratio 13.3 mg/g CRE (<30 mg/g CRE)
[2022-09-22 13:27] LABS: ALB/GLOB Ratio 1.1 RATIO (0.9-2.4); AST(SGOT) 12 U/L (15-37); Alanine Aminotransfer ALT/SGPT 32 U/L (16-61); Albumin, Serum 3.7 g/dL (3.2-5.0); Alkaline Phosphatase 94 U/L (45-117); Anion Gap 8 (5-15); BUN 26 mg/dL (7-18); BUN/Creat Ratio 28.4 RATIO (10-20); Calcium,Total 9.9 mg/dL (8.5-10.1); Chloride 103 mmol/L (98-107); Cholesterol 138 mg/dL (200); Creatinine, Serum 0.92 mg/dL (0.70-1.30); EST Glomerular Filtration Rate 86 mL/min (>60); Est Glom Filt Rate - Afr Amer 104 mL/min (>60); Globulin 3.5 g/dL (2.2-4.2); Glucose 198 mg/dL (74-106); High Density Lipoprotein 52 mg/dL; Magnesium 1.9 mg/dL (1.6-2.6); Potassium 4.6 mmol/L (3.5-5.1); Protein, Total 7.2 g/dL (6.4-8.2); Sodium Level 138 mmol/L (136-145); Thyroid Stim Hormone (TSH) 0.53 uIU/mL (0.358-3.74); Triglycerides 118 mg/dL; Very Low Density Lipoprotein 24 mg/dL (5-40)
[2022-09-25 08:49] LABS: VITAMIN B6 13.7 ug/L (3.4-65.2)
== END | disposition home or self-care (01) ==
LOC: MFPLAB 10:19
PROVIDERS: PCP Family Medicine; Visit Provider Family Medicine
DX: E11.69 Type 2 diabetes mellitus with other specified complication (principal); E11.42 Type 2 diabetes mellitus with diabetic polyneuropathy; I49.9 Cardiac arrhythmia, unspecified; E55.9 Vitamin D deficiency, unspecified
CPT/HCPCS: 36415; 80053; 80061; 82043; 82306; 82570; 82607; 83036; 83735; 84207; 84425; 84443; 85025

== ENCOUNTER → 2022-11-01 | Outpatient (CLI) | payer MEDICARE, OTHER, SELFPAY ==
[2022-11-01 12:08] LABS: Absolute Lymphocyte Count 0.99 X10^3/uL (0.83-4.51); Absolute Neutrophil Count 5.5 X10^3/uL (2.0-7.7); Basophil# 0.05 X10^3/uL; Basophil% 0.7 % (0-1); Eosinophil# 0.15 X10^3/uL; Eosinophils% 2.1 % (0-5); Hematocrit 40.2 % (40-54); Hemoglobin 12.9 g/dL (13.0-16.5); Lymphocyte # 0.99 X10^3/ul (0.83-4.51); Lymphocyte % 13.7 % (19-41); Mean Corp Hgb Conc 32.1 g/dL (32-36); Mean Corpuscular Hgb 28.7 pg (27.0-32.0); Mean Corpuscular Volume 89.3 fL (80-94); Mean Platelet Vol. 10.5 fl (6.2-12.0); Monocyte# 0.51 X10^3/uL; NRBC Flagged by Analyzer 0 % (0-5); Neutrophil # 5.53 X10^3/uL (2.7-7.7); Neutrophil % 76.2 % (47-70); Platelet Count 274 K/mm3 (150-450); RBC Distribution Width CV 13.7 % (11.6-14.6); RBC Distribution Width SD 44.5 fl (35.1-43.9); White Blood Count 7.3 K/mm3 (4.4-11.0)
[2022-11-01 12:23] LABS: Vitamin D,25 Hydroxy 35.2 ng/mL
[2022-11-01 12:32] LABS: ALB/GLOB Ratio 0.9 RATIO (0.9-2.4); AST(SGOT) 14 U/L (15-37); Alanine Aminotransfer ALT/SGPT 32 U/L (16-61); Albumin, Serum 3.6 g/dL (3.2-5.0); Alkaline Phosphatase 92 U/L (45-117); Anion Gap 6 (5-15); BUN 20 mg/dL (7-18); BUN/Creat Ratio 22.4 RATIO (10-20); Calcium,Total 9.6 mg/dL (8.5-10.1); Chloride 105 mmol/L (98-107); Cholesterol 136 mg/dL (200); Creatinine, Serum 0.89 mg/dL (0.70-1.30); EST Glomerular Filtration Rate 89 mL/min (>60); Est Glom Filt Rate - Afr Amer 107 mL/min (>60); Globulin 3.8 g/dL (2.2-4.2); Glucose 196 mg/dL (74-106); High Density Lipoprotein 46 mg/dL; Potassium 4.1 mmol/L (3.5-5.1); Protein, Total 7.4 g/dL (6.4-8.2); Sodium Level 136 mmol/L (136-145); Triglycerides 95 mg/dL; Very Low Density Lipoprotein 19 mg/dL (5-40)
[2022-11-01 12:37] LABS: Hemoglobin A1c 7.1 % (3.8-5.6)
[2022-11-03 10:12] LABS: Ferritin 14 ng/mL (26-388); Iron 40 ug/dL (65-175); Iron Binding Capacity,Total 409 ug/dL (250-450); PERCENT IRON SATURATION 9.8 % (15.0-55.0)
[2022-11-03 10:21] LABS: Vitamin B12 564 pg/mL (211-911)
== END | disposition home or self-care (01) ==
LOC: MFPLAB 09:01
PROVIDERS: PCP Family Medicine; Visit Provider Family Medicine
DX: D64.9 Anemia, unspecified (principal); E11.9 Type 2 diabetes mellitus without complications; E55.9 Vitamin D deficiency, unspecified
CPT/HCPCS: 36415; 80053; 80061; 82306; 82607; 82728; 83036; 83540; 83550; 85025

== ENCOUNTER → 2023-01-26 | Outpatient (CLI) | payer MEDICARE, OTHER, SELFPAY ==
[2023-01-26 10:08] LABS: Absolute Lymphocyte Count 1.61 X10^3/uL (0.83-4.51); Absolute Neutrophil Count 4.9 X10^3/uL (2.0-7.7); Basophil# 0.06 X10^3/uL; Basophil% 0.8 % (0-1); Eosinophil# 0.34 X10^3/uL; Eosinophils% 4.5 % (0-5); Hematocrit 42.5 % (40-54); Hemoglobin 13.8 g/dL (13.0-16.5); Lymphocyte # 1.61 X10^3/ul (0.83-4.51); Lymphocyte % 21.3 % (19-41); Mean Corp Hgb Conc 32.5 g/dL (32-36); Mean Corpuscular Hgb 28.7 pg (27.0-32.0); Mean Corpuscular Volume 88.4 fL (80-94); Mean Platelet Vol. 10.1 fl (6.2-12.0); Monocyte# 0.67 X10^3/uL; Monocyte% 8.9 % (0-10); NRBC Flagged by Analyzer 0 % (0-5); Neutrophil # 4.85 X10^3/uL (2.7-7.7); Neutrophil % 64.2 % (47-70); Platelet Count 268 K/mm3 (150-450); RBC Distribution Width CV 14.9 % (11.6-14.6); RBC Distribution Width SD 48.5 fl (35.1-43.9); Red Blood Count 4.81 M/mm3 (4.6-6.2); White Blood Count 7.6 K/mm3 (4.4-11.0)
[2023-01-26 10:56] LABS: Vitamin B12 499 pg/mL (211-911); Vitamin D,25 Hydroxy 33.8 ng/mL
[2023-01-26 11:04] LABS: ALB/GLOB Ratio 0.9 RATIO (0.9-2.4); AST(SGOT) 18 U/L (15-37); Alanine Aminotransfer ALT/SGPT 30 U/L (16-61); Albumin, Serum 3.7 g/dL (3.2-5.0); Alkaline Phosphatase 97 U/L (45-117); Anion Gap 7 (5-15); BUN 22 mg/dL (7-18); Calcium,Total 10.4 mg/dL (8.5-10.1); Chloride 105 mmol/L (98-107); Cholesterol 126 mg/dL (200); Creatinine, Serum 0.76 mg/dL (0.70-1.30); EST Glomerular Filtration Rate 107 mL/min (>60); Est Glom Filt Rate - Afr Amer 130 mL/min (>60); Ferritin 25 ng/mL (26-388); Globulin 3.9 g/dL (2.2-4.2); Glucose 112 mg/dL (74-106); High Density Lipoprotein 45 mg/dL; Iron 96 ug/dL (65-175); Iron Binding Capacity,Total 356 ug/dL (250-450); Potassium 4.3 mmol/L (3.5-5.1); Protein, Total 7.6 g/dL (6.4-8.2); Sodium Level 136 mmol/L (136-145); Triglycerides 67 mg/dL; Very Low Density Lipoprotein 13 mg/dL (5-40)
[2023-01-27 14:47] LABS: PTHIN 35.3 pg/mL (18.4-80.1)
== END | disposition home or self-care (01) ==
LOC: MFPLAB 08:55
PROVIDERS: PCP Family Medicine; Visit Provider Family Medicine
DX: E34.9 Endocrine disorder, unspecified (principal); E11.9 Type 2 diabetes mellitus without complications; D64.9 Anemia, unspecified; E55.9 Vitamin D deficiency, unspecified
CPT/HCPCS: 36415; 80053; 80061; 82306; 82607; 82728; 82746; 83036; 83540; 83550; 83970; 85025

== ENCOUNTER → 2023-03-01 | Outpatient (CLI) | payer MEDICARE, OTHER, SELFPAY | END | disposition home or self-care (01) | PROVIDERS: PCP Family Medicine; Visit Provider Family Medicine | DX: R30.0 Dysuria (principal) | CPT/HCPCS: 87077; 87086; 87088; 87186 ==

== ENCOUNTER → 2023-03-10 | Outpatient (CLI) | payer MEDICARE, SELFPAY | END | disposition home or self-care (01) | LOC: MFPLAB 15:18 | PROVIDERS: PCP Family Medicine; Visit Provider Family Medicine | DX: N39.0 Urinary tract infection, site not specified (principal) | CPT/HCPCS: 87077; 87086; 87088; 87186 ==

== ENCOUNTER → 2023-04-28 | Outpatient (CLI) | payer MEDICARE, OTHER, SELFPAY ==
[2023-04-28 10:27] LABS: Absolute Lymphocyte Count 1.39 X10^3/uL (0.83-4.51); Absolute Neutrophil Count 4.7 X10^3/uL (2.0-7.7); Basophil# 0.05 X10^3/uL; Basophil% 0.7 % (0-1); Eosinophil# 0.25 X10^3/uL; Eosinophils% 3.6 % (0-5); Hematocrit 41.7 % (40-54); Hemoglobin 13.8 g/dL (13.0-16.5); Lymphocyte # 1.39 X10^3/ul (0.83-4.51); Lymphocyte % 20.1 % (19-41); Mean Corp Hgb Conc 33.1 g/dL (32-36); Mean Corpuscular Hgb 29.7 pg (27.0-32.0); Mean Corpuscular Volume 89.9 fL (80-94); Monocyte# 0.54 X10^3/uL; Monocyte% 7.8 % (0-10); NRBC Flagged by Analyzer 0 % (0-5); Neutrophil # 4.67 X10^3/uL (2.7-7.7); Neutrophil % 67.4 % (47-70); Platelet Count 245 K/mm3 (150-450); RBC Distribution Width CV 13.7 % (11.6-14.6); RBC Distribution Width SD 45.1 fl (35.1-43.9); Red Blood Count 4.64 M/mm3 (4.6-6.2); White Blood Count 6.9 K/mm3 (4.4-11.0)
[2023-04-28 10:55] LABS: Vitamin D,25 Hydroxy 38.3 ng/mL
[2023-04-28 10:57] LABS: PTHIN 40.2 pg/mL (18.4-80.1)
[2023-04-28 11:17] LABS: Hemoglobin A1c 6.6 % (3.8-5.6)
[2023-04-28 11:28] LABS: AST(SGOT) 15 U/L (15-37); Alanine Aminotransfer ALT/SGPT 34 U/L (16-61); Albumin, Serum 3.8 g/dL (3.2-5.0); Alkaline Phosphatase 114 U/L (45-117); Anion Gap 5 (5-15); BUN 20 mg/dL (7-18); BUN/Creat Ratio 25.5 RATIO (10-20); Calcium,Total 9.9 mg/dL (8.5-10.1); Chloride 103 mmol/L (98-107); Cholesterol 117 mg/dL (200); Creatinine, Serum 0.78 mg/dL (0.70-1.30); EST Glomerular Filtration Rate 103 mL/min (>60); Est Glom Filt Rate - Afr Amer 125 mL/min (>60); Globulin 3.9 g/dL (2.2-4.2); Glucose 120 mg/dL (74-106); High Density Lipoprotein 46 mg/dL; Potassium 4.6 mmol/L (3.5-5.1); Protein, Total 7.7 g/dL (6.4-8.2); Sodium Level 136 mmol/L (136-145); Thyroid Stim Hormone (TSH) 0.74 uIU/mL (0.358-3.74); Triglycerides 62 mg/dL; Very Low Density Lipoprotein 12 mg/dL (5-40)
== END | disposition home or self-care (01) ==
LOC: MTLAB 09:04
PROVIDERS: PCP Family Medicine; Referring Provider Family Medicine; Visit Provider Family Medicine
DX: E11.59 Type 2 diabetes mellitus with other circulatory complications (principal); E55.9 Vitamin D deficiency, unspecified
CPT/HCPCS: 36415; 80053; 80061; 82306; 83036; 83970; 84443; 85025

== ENCOUNTER → 2023-07-18 | Outpatient (CLI) | payer MEDICARE, OTHER, SELFPAY ==
[2023-07-18 10:28] LABS: Absolute Neutrophil Count 4.3 X10^3/uL (2.0-7.7); Basophil# 0.04 X10^3/uL; Basophil% 0.6 % (0-1); Eosinophil# 0.18 X10^3/uL; Eosinophils% 2.8 % (0-5); Hematocrit 41.4 % (40-54); Hemoglobin 13.2 g/dL (13.0-16.5); Lymphocyte % 20.5 % (19-41); Mean Corp Hgb Conc 31.9 g/dL (32-36); Mean Corpuscular Hgb 28.8 pg (27.0-32.0); Mean Corpuscular Volume 90.4 fL (80-94); Mean Platelet Vol. 10.6 fl (6.2-12.0); Monocyte# 0.52 X10^3/uL; Monocyte% 8.2 % (0-10); NRBC Flagged by Analyzer 0 % (0-5); Neutrophil # 4.28 X10^3/uL (2.7-7.7); Neutrophil % 67.6 % (47-70); Platelet Count 276 K/mm3 (150-450); RBC Distribution Width CV 14.2 % (11.6-14.6); RBC Distribution Width SD 47.2 fl (35.1-43.9); Red Blood Count 4.58 M/mm3 (4.6-6.2); White Blood Count 6.3 K/mm3 (4.4-11.0)
[2023-07-18 11:16] LABS: ALB/GLOB Ratio 0.9 RATIO (0.9-2.4); AST(SGOT) 16 U/L (15-37); Alanine Aminotransfer ALT/SGPT 33 U/L (16-61); Albumin, Serum 3.6 g/dL (3.2-5.0); Alkaline Phosphatase 109 U/L (45-117); Anion Gap 7 (5-15); BUN 21 mg/dL (7-18); BUN/Creat Ratio 25.1 RATIO (10-20); Calcium,Total 10.1 mg/dL (8.5-10.1); Chloride 105 mmol/L (98-107); Cholesterol 129 mg/dL (200); Creatinine, Serum 0.84 mg/dL (0.70-1.30); EST Glomerular Filtration Rate 96 mL/min (>60); Est Glom Filt Rate - Afr Amer 116 mL/min (>60); Globulin 3.9 g/dL (2.2-4.2); Glucose 134 mg/dL (74-106); High Density Lipoprotein 54 mg/dL; Potassium 4.4 mmol/L (3.5-5.1); Protein, Total 7.5 g/dL (6.4-8.2); Sodium Level 138 mmol/L (136-145); Triglycerides 55 mg/dL; Very Low Density Lipoprotein 11 mg/dL (5-40)
[2023-07-18 11:26] LABS: Hemoglobin A1c 6.5 % (3.8-5.6)
[2023-07-18 11:40] LABS: Vitamin D,25 Hydroxy 50.6 ng/mL
== END | disposition home or self-care (01) ==
LOC: MFPLAB 08:57
PROVIDERS: PCP Family Medicine; Visit Provider Family Medicine
DX: E11.8 Type 2 diabetes mellitus with unspecified complications (principal); E55.9 Vitamin D deficiency, unspecified
CPT/HCPCS: 36415; 80053; 80061; 82306; 83036; 85025

== ENCOUNTER → 2023-11-14 | Outpatient (CLI) | payer MEDICARE, OTHER, SELFPAY ==
[2023-11-14 11:15] LABS: Hemoglobin A1c 7.3 % (3.8-5.6)
[2023-11-14 11:22] LABS: ALB/GLOB Ratio 0.8 RATIO (0.9-2.4); AST(SGOT) 19 U/L (15-37); Alanine Aminotransfer ALT/SGPT 38 U/L (16-61); Albumin, Serum 3.4 g/dL (3.2-5.0); Alkaline Phosphatase 98 U/L (45-117); Anion Gap 6 (5-15); BUN 18 mg/dL (7-18); BUN/Creat Ratio 22.2 RATIO (10-20); Chloride 108 mmol/L (98-107); Cholesterol 140 mg/dL (200); Creatinine, Serum 0.81 mg/dL (0.70-1.30); EST Glomerular Filtration Rate 99 mL/min (>60); Est Glom Filt Rate - Afr Amer 120 mL/min (>60); Globulin 4.1 g/dL (2.2-4.2); Glucose 161 mg/dL (74-106); High Density Lipoprotein 50 mg/dL; PSA,Total - Annual Screen 5.04 ng/mL (0.00-4.00); Potassium 4.1 mmol/L (3.5-5.1); Protein, Total 7.5 g/dL (6.4-8.2); Sodium Level 139 mmol/L (136-145); Triglycerides 56 mg/dL; Very Low Density Lipoprotein 11 mg/dL (5-40)
== END | disposition home or self-care (01) ==
LOC: MFPLAB 08:09
PROVIDERS: PCP Family Medicine; Visit Provider Family Medicine
DX: E11.8 Type 2 diabetes mellitus with unspecified complications (principal); Z12.5 Encounter for screening for malignant neoplasm of prostate
CPT/HCPCS: 36415; 80053; 80061; 83036; 84153; G0103

== ENCOUNTER → 2024-02-17 | Outpatient (CLI) | payer MEDICARE, OTHER, SELFPAY ==
[2024-02-17 10:24] LABS: Absolute Neutrophil Count 4.4 X10^3/uL (2.0-7.7); Basophil# 0.06 X10^3/uL; Basophil% 0.9 % (0-1); Eosinophil# 0.32 X10^3/uL; Eosinophils% 4.7 % (0-5); Hemoglobin 12.7 g/dL (13.0-16.5); Lymphocyte % 22.1 % (19-41); Mean Corp Hgb Conc 31.8 g/dL (32-36); Mean Corpuscular Hgb 28.5 pg (27.0-32.0); Mean Corpuscular Volume 89.9 fL (80-94); Mean Platelet Vol. 10.2 fl (6.2-12.0); Monocyte# 0.55 X10^3/uL; Monocyte% 8.1 % (0-10); NRBC Flagged by Analyzer 0 % (0-5); Neutrophil # 4.35 X10^3/uL (2.7-7.7); Neutrophil % 63.9 % (47-70); Platelet Count 239 K/mm3 (150-450); RBC Distribution Width CV 13.9 % (11.6-14.6); RBC Distribution Width SD 46.3 fl (35.1-43.9); Red Blood Count 4.45 M/mm3 (4.6-6.2); White Blood Count 6.8 K/mm3 (4.4-11.0)
[2024-02-17 21:58] LABS: Hemoglobin A1c 6.9 % (3.8-5.6)
[2024-02-18 01:39] LABS: AST(SGOT) 16 U/L (15-37); Alanine Aminotransfer ALT/SGPT 30 U/L (16-61); Albumin, Serum 3.6 g/dL (3.2-5.0); Alkaline Phosphatase 93 U/L (45-117); Anion Gap 9 (5-15); BUN 21 mg/dL (7-18); BUN/Creat Ratio 28.1 RATIO (10-20); Calcium,Total 9.6 mg/dL (8.5-10.1); Chloride 108 mmol/L (98-107); Cholesterol 124 mg/dL (200); Creatinine, Serum 0.75 mg/dL (0.70-1.30); EST Glomerular Filtration Rate 109 mL/min (>60); Est Glom Filt Rate - Afr Amer 132 mL/min (>60); Globulin 3.7 g/dL (2.2-4.2); Glucose 136 mg/dL (74-106); High Density Lipoprotein 46 mg/dL; Potassium 4.6 mmol/L (3.5-5.1); Protein, Total 7.3 g/dL (6.4-8.2); Sodium Level 139 mmol/L (136-145); Thyroid Stim Hormone (TSH) 0.56 uIU/mL (0.358-3.74); Triglycerides 67 mg/dL; Very Low Density Lipoprotein 13 mg/dL (5-40)
== END | disposition home or self-care (01) ==
LOC: MFPLAB 08:40
PROVIDERS: PCP Family Medicine; Visit Provider Family Medicine
DX: Z00.00 Encounter for general adult medical examination without abnormal findings (principal); E11.8 Type 2 diabetes mellitus with unspecified complications
CPT/HCPCS: 36415; 80053; 80061; 82043; 83036; 84443; 85025

== ENCOUNTER → 2024-06-15 | Outpatient (CLI) | payer MEDICARE, OTHER, SELFPAY ==
[2024-06-15 10:27] LABS: Absolute Lymphocyte Count 1.93 X10^3/uL (0.83-4.51); Absolute Neutrophil Count 4.9 X10^3/uL (2.0-7.7); Basophil# 0.07 X10^3/uL; Basophil% 0.9 % (0-1); Eosinophil# 0.37 X10^3/uL; Eosinophils% 4.6 % (0-5); Hematocrit 40.9 % (40-54); Hemoglobin 12.9 g/dL (13.0-16.5); Lymphocyte # 1.93 X10^3/ul (0.83-4.51); Lymphocyte % 23.9 % (19-41); Mean Corp Hgb Conc 31.5 g/dL (32-36); Mean Corpuscular Hgb 28.9 pg (27.0-32.0); Mean Corpuscular Volume 91.7 fL (80-94); Mean Platelet Vol. 10.3 fl (6.2-12.0); Monocyte# 0.73 X10^3/uL; NRBC Flagged by Analyzer 0 % (0-5); Neutrophil # 4.93 X10^3/uL (2.7-7.7); Neutrophil % 60.9 % (47-70); Platelet Count 262 K/mm3 (150-450); RBC Distribution Width CV 14.6 % (11.6-14.6); RBC Distribution Width SD 49.1 fl (35.1-43.9); Red Blood Count 4.46 M/mm3 (4.6-6.2); White Blood Count 8.1 K/mm3 (4.4-11.0)
[2024-06-15 10:39] LABS: Vitamin D,25 Hydroxy 39.9 ng/mL
[2024-06-15 10:41] LABS: Hemoglobin A1c 7.1 % (3.8-5.6)
[2024-06-15 10:44] LABS: ALB/GLOB Ratio 0.9 RATIO (0.9-2.4); AST(SGOT) 17 U/L (15-37); Alanine Aminotransfer ALT/SGPT 34 U/L (16-61); Albumin, Serum 3.7 g/dL (3.2-5.0); Alkaline Phosphatase 98 U/L (45-117); Anion Gap 5 (5-15); BUN 24 mg/dL (7-18); BUN/Creat Ratio 25.5 RATIO (10-20); Calcium,Total 9.9 mg/dL (8.5-10.1); Chloride 107 mmol/L (98-107); Cholesterol 135 mg/dL (200); Creatinine, Serum 0.94 mg/dL (0.70-1.30); EST Glomerular Filtration Rate 83 mL/min (>60); Est Glom Filt Rate - Afr Amer 101 mL/min (>60); Globulin 4.1 g/dL (2.2-4.2); Glucose 153 mg/dL (74-106); High Density Lipoprotein 51 mg/dL; Potassium 4.5 mmol/L (3.5-5.1); Protein, Total 7.8 g/dL (6.4-8.2); Sodium Level 138 mmol/L (136-145); Triglycerides 55 mg/dL; Very Low Density Lipoprotein 11 mg/dL (5-40)
[2024-06-15 18:12] LABS: Ferritin 21 ng/mL (26-388); Iron 78 ug/dL (65-175); Iron Binding Capacity,Total 386 ug/dL (250-450); PERCENT IRON SATURATION 20.2 % (15.0-55.0)
[2024-06-15 18:20] LABS: Vitamin B12 801 pg/mL (211-911)
== END | disposition home or self-care (01) ==
PROVIDERS: PCP Family Medicine; Referring Provider Family Medicine; Visit Provider Family Medicine
DX: E55.9 Vitamin D deficiency, unspecified (principal); E11.8 Type 2 diabetes mellitus with unspecified complications
CPT/HCPCS: 36415; 80053; 80061; 82306; 82607; 82728; 83036; 83540; 83550; 85025

== ENCOUNTER → 2024-06-25 | Outpatient (CLI) | payer MEDICARE, OTHER, SELFPAY ==
[2024-06-25 08:05] LABS: Bacteria 0 SEEN /hpf (None Seen); Mucous, Urine 0 SEEN /hpf (<or=2+); Red Blood Cells-Urine 0 SEEN /hpf (0-5); Squamous Epithelial Cells - UA 0 SEEN /hpf (0-5); White Blood Cells 0 SEEN /hpf (0-5)
[2024-06-25 10:16] LABS: Absolute Lymphocyte Count 1.46 X10^3/uL (0.83-4.51); Basophil# 0.04 X10^3/uL; Basophil% 0.6 % (0-1); Eosinophil# 0.29 X10^3/uL; Eosinophils% 4.5 % (0-5); Hematocrit 41.5 % (40-54); Hemoglobin 13.3 g/dL (13.0-16.5); Lymphocyte # 1.46 X10^3/ul (0.83-4.51); Lymphocyte % 22.6 % (19-41); Mean Corpuscular Hgb 29.2 pg (27.0-32.0); Mean Corpuscular Volume 91.2 fL (80-94); Mean Platelet Vol. 10.3 fl (6.2-12.0); Monocyte# 0.62 X10^3/uL; Monocyte% 9.6 % (0-10); NRBC Flagged by Analyzer 0 % (0-5); Neutrophil # 4.04 X10^3/uL (2.7-7.7); Neutrophil % 62.4 % (47-70); Platelet Count 274 K/mm3 (150-450); RBC Distribution Width CV 14.5 % (11.6-14.6); RBC Distribution Width SD 48.6 fl (35.1-43.9); Red Blood Count 4.55 M/mm3 (4.6-6.2); White Blood Count 6.5 K/mm3 (4.4-11.0)
[2024-06-25 10:29] LABS: Color, Urine Yellow (Yellow); Glucose, Dipstick 1000 mg/dl (Normal); Ketone-Dipstick Negative (Negative); Leukocyte Esterase-Dipstick Negative /ul (Negative); Nitrite-Dipstick Negative (Negative); Occult Blood-Urine Negative /ul (Negative); Protein-Dipstick Negative (Negative); Urine Bilirubin Dipstick Negative (Negative); Urine Clarity Clear (Clear); Urine Urobilinogen Normal (Normal)
[2024-06-25 11:09] LABS: ALB/GLOB Ratio 0.9 RATIO (0.9-2.4); AST(SGOT) 17 U/L (15-37); Alanine Aminotransfer ALT/SGPT 38 U/L (16-61); Albumin, Serum 3.7 g/dL (3.2-5.0); Alkaline Phosphatase 93 U/L (45-117); Anion Gap 9 (5-15); BUN 24 mg/dL (7-18); BUN/Creat Ratio 30.8 RATIO (10-20); Calcium,Total 10.6 mg/dL (8.5-10.1); Chloride 110 mmol/L (98-107); Cholesterol 136 mg/dL (200); Creatinine, Serum 0.78 mg/dL (0.70-1.30); EST Glomerular Filtration Rate 104 mL/min (>60); Est Glom Filt Rate - Afr Amer 125 mL/min (>60); Glucose 130 mg/dL (74-106); High Density Lipoprotein 50 mg/dL; Potassium 4.4 mmol/L (3.5-5.1); Protein, Total 7.7 g/dL (6.4-8.2); Sodium Level 139 mmol/L (136-145); Triglycerides 82 mg/dL; Very Low Density Lipoprotein 16 mg/dL (5-40)
[2024-06-25 11:13] LABS: Microalbumin,Random Urine 8.6 mg/L (NO RANGE EST.); Microalbumin:Creatinine Ratio 14.7 mg/g CRE (<30 mg/g CRE)
== END | disposition home or self-care (01) ==
LOC: MFPLAB 08:03
PROVIDERS: PCP Family Medicine; Visit Provider Family Medicine
DX: E11.8 Type 2 diabetes mellitus with unspecified complications (principal); E55.9 Vitamin D deficiency, unspecified
CPT/HCPCS: 36415; 80053; 80061; 81001; 82043; 82306; 82570; 83036; 85025

== ENCOUNTER 2024-06-26 10:05 | Emergency (ER) | payer MEDICARE, OTHER, SELFPAY ==
[2024-06-26] VITALS (7 sets, daily range): BP systolic 123–168; BP diastolic 75–98; PULSE 70–96; RESP 12–18; TEMP 36.7; O2SAT 93–97; BMI 35.6
--- NOTE | 2024-06-26 10:19 | CT_ITS ---
STUDY: CT CERVICAL SPINE WITHOUT CONTRAST REASON FOR EXAM: Male, 74 years old. Trauma RADIATION DOSAGE (If Supplied By Facility): CTDIvol = ( 23.52 ) mGy, DLP = ( 441.89 ) mGycm TECHNIQUE: High resolution transaxial imaging was performed without contrast material. Sagittal and coronal images were reconstructed. Individualized dose optimization techniques were used for this CT. COMPARISON: None FINDINGS: Normal craniovertebral junction. There are degenerative changes of the anterior atlantoaxial articulation. Normal odontoid process. There is straightening of the normal cervical lordosis. Multilevel facet joint osteoarthritis. C2-3: Facet joint osteoarthritis and hypertrophy. Mild degree of bilateral neural foraminal stenosis. C3-4: Anterior spondylosis. Facet joint osteoarthritis and hypertrophy. Bilateral neural foraminal stenosis. C4-5: Marked degree of disc space narrowing. Spondylosis. Uncovertebral arthrosis. Bilateral neural foraminal stenosis and central canal stenosis. C5-6: Marked degree of disc space narrowing. Spondylosis. Uncovertebral arthrosis. Moderate degree of central canal stenosis as well as bilateral neural foraminal stenosis. C6-7: Marked degree of disc space narrowing. Spondylosis. Bilateral neural foraminal and central canal stenosis. C7-T1: Normal endplates. Normal disc height and morphology. Normal central canal and intervertebral neuroforamina. Calcification of the carotid bifurcations bilaterally. CT/Spine Cervical without Contras IMPRESSION: Multilevel degenerative changes, as described above. Electronically Signed: Sanju Davenport MD at 11:34 EDT ,
--- NOTE | 2024-06-26 10:19 | CT_ITS ---
STUDY: CT BRAIN WITHOUT CONTRAST REASON FOR EXAM: Male, 74 years old. Head trauma. RADIATION DOSAGE (If Supplied By Facility): CTDIvol = ( 44.99 ) mGy, DLP = ( 829.85 ) mGycm TECHNIQUE: Transaxial CT imaging of the brain was performed without administration of intravenous contrast material. Individualized dose optimization techniques were used for this CT. COMPARISON: Comparison is made with prior examination dated December 16, 2017. FINDINGS: Small scalp hematoma overlying the right superior parietal occipital bones. Normal calvarium. There is asymmetry of the ventricles consistent with an anatomic variant. There are areas of decreased attenuation within the white matter tracts of the supratentorial brain, consistent with microvascular disease changes. Normal basal ganglia and thalami. Normal brainstem. There is mild cerebellar atrophy. There is evidence of a subarachnoid hemorrhage in the right sylvian fissure as well as in the right side of the [place]. Focal hemorrhagic contusion in the superior aspect of the right parietal lobe with mild degree of surrounding edema. Focal contusion is also seen in the peripheral aspect of the posterior right parietal lobe. Atherosclerotic calcification of the cavernous portions of the internal carotid arteries bilaterally. Normal visualized paranasal sinuses. CT/Brain/Head without Contrast IMPRESSION: Small scalp hematoma overlying the right superior parietal occipital bones. Subarachnoid hemorrhage in the right sylvian fissure as well as in the right side of the [place]. Focal hemorrhagic contusion in the superior aspect of the right parietal lobe and focal contusion also seen in the peripheral aspect of the posterior right parietal lobe. N.B. : The above Results were Read Back by Sanju Davenport MD to Abundio Ortiz DO, and understanding confirmed on 06/26/2024 11:23:50 (ET). Electronically Signed: Sanju Davenport MD at 11:25 EDT ,
--- NOTE | 2024-06-26 10:20 | CT_ITS ---
STUDY: CT CHEST, ABDOMEN T PELVIS WITH CONTRAST REASON FOR EXAM: Male, 74 years old. trauma RADIATION DOSAGE (If Supplied By Facility): CTDIvol = ( 32.37 ) mGy, DLP = ( 2180.22 ) mGycm TECHNIQUE: Transaxial imaging was performed following intravenous administration of IV 100mL Isovue-370. Individualized dose optimization techniques were used for this CT. COMPARISON: Comparison is made with prior study dated December 16, 2017. FINDINGS: CHEST Mild degree of increased markings at the lung bases suggestive of bibasilar atelectasis and/or scarring. There is no demonstrated pleural abnormality. There are calcifications of the coronary arteries. Normal mediastinum. Normal hilar regions. Normal unenhanced pulmonary arteries. There is atherosclerotic calcification of the aortic arch with tortuosity and elongation of the aortic arch and descending thoracic aorta. There are degenerative changes of the thoracic spine. Status post right shoulder replacement. Gallstones. ABDOMEN There is decreased attenuation of the liver consistent with steatosis. There is a solitary gallstone. This measures 2.5 cm. Normal spleen. Normal pancreas. Normal bilateral adrenal glands. Stable bilateral parapelvic renal cysts. Stable mild degree of nonspecific perinephric stranding. Normal visualized stomach. Normal small intestine. There are multiple colonic diverticula consistent with diverticulosis. The appendix is visualized and appears normal. There is scattered atherosclerotic calcification of the abdominal aorta, without a demonstrated aneurysm. Normal inferior vena cava. Normal retroperitoneum. Small left inguinal hernia containing fat. There are diffuse degenerative changes of the visualized lumbar spine. Degenerative changes of the symphysis pubis. PELVIS Distended urinary bladder. Prostatic enlargement. There is no pelvic fluid. There is no pelvic lymphadenopathy or mass lesion. There is diffuse atherosclerotic calcification of the pelvic arteries. CT/CT Chest, Abd, Pel w/Contrast IMPRESSION: Mild degree of bibasilar linear scarring. Solitary gallstone. Sigmoid diverticulosis. Electronically Signed: Sanju Davenport MD at 11:32 EDT ,
[2024-06-26] MEDS: Lidocaine 1% /Epi 1:100 (20ml) 20 ML Vial INFILT (10:23)
[2024-06-26 10:31] LABS: Absolute Lymphocyte Count 0.97 X10^3/uL (0.83-4.51); Absolute Neutrophil Count 12.4 X10^3/uL (2.0-7.7); Basophil# 0.08 X10^3/uL; Basophil% 0.6 % (0-1); Eosinophil# 0.08 X10^3/uL; Eosinophils% 0.6 % (0-5); Hematocrit 40.7 % (40-54); Hemoglobin 13.5 g/dL (13.0-16.5); Lymphocyte # 0.97 X10^3/ul (0.83-4.51); Lymphocyte % 6.8 % (19-41); Mean Corp Hgb Conc 33.2 g/dL (32-36); Mean Corpuscular Hgb 29.9 pg (27.0-32.0); Mean Platelet Vol. 9.7 fl (6.2-12.0); Monocyte# 0.66 X10^3/uL; Monocyte% 4.6 % (0-10); NRBC Flagged by Analyzer 0 % (0-5); Neutrophil % 86.8 % (47-70); Platelet Count 272 K/mm3 (150-450); RBC Distribution Width CV 14.3 % (11.6-14.6); RBC Distribution Width SD 47.3 fl (35.1-43.9); Red Blood Count 4.52 M/mm3 (4.6-6.2); White Blood Count 14.3 K/mm3 (4.4-11.0)
[2024-06-26 10:45] LABS: Anion Gap 7 (5-15); BUN 23 mg/dL (7-18); Calcium,Total 10.6 mg/dL (8.5-10.1); Chloride 110 mmol/L (98-107); Creatinine, Serum 0.96 mg/dL (0.70-1.30); EST Glomerular Filtration Rate 81 mL/min (>60); Est Glom Filt Rate - Afr Amer 99 mL/min (>60); Estimated Creatinine Clearance 79.73 ml/min; Glucose 172 mg/dL (74-106); Potassium 4.4 mmol/L (3.5-5.1); Sodium Level 138 mmol/L (136-145)
[2024-06-26] MEDS: Ondansetron 4 MG/2 ML Vial IV ×2 (10:46→12:46)
[2024-06-26] MEDS: Morphine 4 MG/ML Syringe IV ×2 (10:46→11:30)
--- NOTE | 2024-06-26 10:55 | EX.ED.GENINJ ---
HPI History of Present Illness Chief Complaint: Trauma Informant: patient, spouse/S.O. and family Narrative Narrative: 74-year-old male presenting to the emergency room with head trauma. Patient was approaching a cow that was down on the ground. The cow apparently got up and charged him. States he remembers the charge but does not really remember after that. Patient believes he has had a loss of consciousness but unknown duration. Patient notes pain to the anterior right shoulder. He has had bilateral shoulder replacements. He denies any neck pain. He notes laceration to the right side of his head. He denies any nausea or vomiting. Denies any leg symptoms. Denies any abdominal or back pain. He does not feel short of breath. [facility] Medical History Wears dentures Wears glasses Alcohol use Diabetes Arthritis High cholesterol Back pain Syncope Dietary restriction Chronic cough Leg cramps History of echocardiogram History of irregular heartbeat History of trigger finger HX OF HEMATOMA REMOVAL Carpal tunnel syndrome Neck pain Back pain Chest pain Diabetes Shoulder pain Loss of consciousness Arthritis Hypertension Home Medications ?Medication ?Instructions ?Recorded ?Last Taken ?Type atorvastatin 10 mg tablet 10 mg PO DAILY 08/10/13 12/16/17 History metformin 500 mg tablet 1,000 mg PO BIDCM 08/10/13 12/16/17 History aspirin 81 mg tablet,delayed 81 mg PO DAILY 12/16/17 12/16/17 History release (Adult Low Dose Aspirin) calcium 500 mg (as 1 tab PO DAILY 02/10/22 Unknown History carbonate)-vitamin D3 3.125 mcg (125 unit) tablet multivitamin 1 tab PO DAILY 02/10/22 Unknown History dulaglutide 0.75 mg/0.5 mL 0.75 mg subcut QWEEK 06/26/24 Unknown History subcutaneous pen injector (Trulicity) glimepiride 1 mg tablet 1 mg PO DAILY 06/26/24 Unknown History tamsulosin 0.4 mg capsule 0.4 mg PO DAILY 06/26/24 Unknown History valsartan 160 mg tablet 160 mg PO BID 06/26/24 Unknown History Allergy/AdvReac Type Severity Reaction Status Date / Time sulfamethoxazole (From Allergy Severe Rash Verified 06/26/24 10:06 Bactrim) trimethoprim (From Bactrim) Allergy Severe Rash Verified 06/26/24 10:06 hydrocodone bitartrate (From AdvReac Nausea Verified 06/26/24 10:06 Vicodin) tramadol AdvReac Other Verified 06/26/24 10:06 Family History Other Cancer Heart disease Surgical History Hx of shoulder replacement Hx of colonoscopy History of skin graft Hx of surgical amputation of finger History of knee replacement Social History Smoking Status: Never smoker alcohol intake: current alcohol intake frequency: a few times a month Alcohol type: wine ROS ROS ED Constitutional Constitutional ED: Denies chills, fever(s) or weight loss Eyes Eyes: Denies blurry vision, change in vision or diplopia ENT ENT ED: Denies ear pain, rhinorrhea or sore throat Cardiovascular Cardiovascular: Reports chest pain; Denies orthopnea, palpitations or racing heartbeat Respiratory/Chest Respiratory/Chest: Denies cough, dyspnea or orthopnea Gastrointestinal Gastrointestinal: Denies abdominal pain, diarrhea, nausea or vomiting Genitourinary Genitourinary ED: Denies dysuria, hematuria or urinary frequency Musculoskeletal Musculoskeletal: Reports other Details: Right shoulder/clavicle pain ; Denies arthralgias, back pain, myalgias or neck pain Integumentary Reports other Details: Scalp laceration ; Denies abscess or rash Neurologic Neurologic: Denies headache(s) or weakness Psychiatric Psychiatric: Denies anxiety, depression, suicidal ideation or suicidal thoughts Endocrine Endocrinology: Denies polydipsia, polyphagia or polyuria Allergic/Immunologic Allergic/Immunologic ED: Denies mouth swelling, tongue swelling or urticaria EXAM Physical Exam Const Vital Signs: 06/26/24 10:05 06/26/24 10:21 06/26/24 11:13 Temperature 98.1 F Temperature Source Temporal Pulse Rate 95 85 Respiratory Rate 16 12 Respiratory Effort Normal Non-Labored Respiratory Depth Normal Respiratory Pattern Normal Blood Pressure 168/96 H 152/84 H Blood Pressure Mean 120 106 Pulse Ox 94 96 Oxygen Delivery Method Room Air Room Air Oxygen Flow Rate (L/min) 06/26/24 11:45 06/26/24 12:01 06/26/24 12:23 Temperature 98.1 F Temperature Source Pulse Rate 78 87 96 Respiratory Rate 14 16 18 Respiratory Effort Respiratory Depth Respiratory Pattern Blood Pressure 143/90 H 157/98 H 123/98 H Blood Pressure Mean 107 117 106 Pulse Ox 95 93 96 Oxygen Delivery Method Room Air Room Air Oxygen Flow Rate (L/min) 06/26/24 12:48 06/26/24 13:20 Temperature Temperature Source Pulse Rate 70 84 Respiratory Rate 14 18 Respiratory Effort Respiratory Depth Respiratory Pattern Blood Pressure 125/75 H 142/77 H Blood Pressure Mean 91 98 Pulse Ox 97 97 Oxygen Delivery Method Nasal Cannula Nasal Cannula Oxygen Flow Rate (L/min) 2 2 Positive well nourished and well developed General Appearance ED: well developed HEENT Reports normocephalic and moist mucous membranes HEENT Narrative: In the high right parietal occipital scalp is a 5 cm :-) like laceration that is gaping. There is mild venous bleeding. No palpable bony depression. No significant contaminants are seen. Eyes PERRL and EOMs intact bilaterally Neck full ROM, no lymphadenopathy, supple and no JVD General: Negative for tenderness Chest Wall Chest Narrative: There is hematoma over the upper right chest wall along the middle clavicle. Tender to palpation. No subcutaneous emphysema is felt. Resp normal respiratory effort and clear to auscultation bilaterally Cardio regular rate, regular rhythm and no murmurs GI normal to inspection, nondistended, normoactive bowel sounds and non-tender Palpation: soft Back/Spine no CVA tenderness and normal ROM Extremity normal to inspection General Extremety ED: Negative for edema General Extremity: Negative for edema Neuro oriented x3 and CN's II-XII intact bilaterally Franklin Coma Scale: document GCS findings Spontaneous Obeys Commands Oriented 15 Sensorium / Orientation: alert Motor Exam: strength 5/5 throughout Psych mental status grossly normal Mood & Affect: Negative for depressed or tearful Skin no rashes or lesions noted MDM MDM MDM Narrative Medical decision making narrative: Differential diagnosis includes intracranial hemorrhage skull fracture laceration foreign body and scalp neck fracture clavicle fracture rib fracture pneumothorax hemothorax shoulder fracture muscular and ligamentous injuries of shoulder The wound was locally anesthetized using 1% lidocaine with epinephrine. Once adequate anesthesia was achieved the wound was washed with Shur-Clens irrigated and explored. No significant foreign bodies were seen. No additional lacerations were noted. Wound was closed using a total of 5 simple interrupted 3-[address] of the head demonstrates intraparenchymal hemorrhage and subarachnoid blood. No obvious skull fracture. CT cervical spine with no acute fracture. CT of the chest and pelvis with IV contrast was obtained after blood work. There is a nondisplaced fracture of the right clavicle. There is no pulmonary contusion or hemothorax seen. Patient received morphine Zofran for pain. He also received TXA. I spoke with the patient and his regarding the need for transfer to trauma center. After discussion with them I contacted [facility] and he has been accepted there. They requested that we lower his blood pressure. I administered a small dose of hydralazine. While waiting for ambulance for transfer patient began to have what appeared to be a vagal episode. He became bradycardic and hypotensive eventually had emesis and his bradycardia and hypotension resolved. Patient received additional Zofran and a small fluid bolus. History & Record Review Discussion w/independent historian: Patient, Family and Significant other Lab Data Attestation: I reviewed the patient's lab results. Labs: Laboratory Results - last 24 hr 06/26/24 06/26/24 10:25 12:39 WBC 14.3 H RBC 4.52 L Hgb 13.5 Hct 40.7 MCV 90.0 MCH 29.9 MCHC 33.2 RDW Std Deviation 47.3 H RDW Coeff of Antony 14.3 Plt Count 272 MPV 9.7 Immature Gran % (Auto) 0.600 Neut % (Auto) 86.8 H Lymph % (Auto) 6.8 L Polk % (Auto) 4.6 Eos % (Auto) 0.6 Baso % (Auto) 0.6 Absolute Neuts (auto) 12.4 H Absolute Lymphs (auto) 0.97 Nucleated RBC % 0 Sodium 138 Potassium 4.4 Chloride 110 H Carbon Dioxide 22.0 Anion Gap 7 BUN 23 H Creatinine 0.96 Estim Creat Clear Calc 79.73 Est GFR (MDRD) Af Amer 99 Est GFR (MDRD) Non-Af 81 BUN/Creatinine Ratio 24.0 H Glucose 172 H Calcium 10.6 H POC Glucose 130 H Radiography Diagnostic Testing: Clinical Impression(s) from Imaging Studies Brain CT 06/26/24 10:19 IMPRESSION: Small scalp hematoma overlying the right superior parietal occipital bones. Subarachnoid hemorrhage in the right sylvian fissure as well as in the right side of the [place] of [place]. Focal hemorrhagic contusion in the superior aspect of the right parietal lobe and focal contusion also seen in the peripheral aspect of the posterior right parietal lobe. N.B. : The above Results were Read Back by Sanju Davenport MD to Abundio Ortiz DO, and understanding confirmed on 06/26/2024 11:23:50 (ET). Electronically Signed: Sanju Davenport MD at 11:25 EDT , ADDENDUM: 06/26/24 1132 IMPRESSION: Small scalp hematoma overlying the right superior parietal occipital bones. Subarachnoid hemorrhage in the right sylvian fissure as well as in the right side of the [place]. Focal hemorrhagic contusion in the superior aspect of the right parietal lobe and focal contusion also seen in the peripheral aspect of the posterior right parietal lobe. N.B. : The above Results were Read Back by Sanju Davenport MD to Abundio Ortiz DO, and understanding confirmed on 06/26/2024 11:23:50 (ET). Electronically Signed: Sanju Davenport MD at 11:25 EDT , Cervical Spine CT 06/26/24 10:19 IMPRESSION: Multilevel degenerative changes, as described above. Electronically Signed: Sanju Davenport MD at 11:34 EDT , Chest/Abdomen/Pelvis CT 06/26/24 10:20 IMPRESSION: Mild degree of bibasilar linear scarring. Solitary gallstone. Sigmoid diverticulosis. Electronically Signed: Sanju Davenport MD at 11:32 EDT , ADDENDUM: 06/26/24 1301 IMPRESSION: undefined Management Discussion w/another healthcare provider: [facility] and Radiologist Critical Care Time Critical Care Time: Yes Critical care time (excluding procedures): 30-74 minutes (35 min), Including time spent:, Discussing w/Patient &/or Family/Communications Media Professor, Discussing w/Consultants, Arranging Admission or Transfer and Performing Direct Patient Care at Bedside Discharge Plan Triage Chief Complaint: Trauma ED Provider: Abundio Ortiz Dx/Rx/DC Orders Clinical Impression: Traumatic subarachnoid hemorrhage, Vasovagal near syncope, Hematoma of right chest wall, Laceration of scalp, Concussion, Closed fracture of right clavicle Prescriptions: No Action aspirin [Adult Low Dose Aspirin] 81 mg tablet,delayed release (DR/EC) 81 mg PO DAILY metformin 500 MG tablet 1,000 mg PO BIDCM Patient Comments: BLOOD SUGAR CONTROL atorvastatin 10 MG tablet 10 mg PO DAILY Patient Comments: CHOLESTEROL multivitamin Tablet 1 tab PO DAILY calcium carbonate-vitamin D3 [Calcium 500 + D (D3)] 500 mg-3.125 mcg (125 unit) Tablet 1 tab PO DAILY glimepiride 1 mg tablet 1 mg PO DAILY tamsulosin 0.4 mg capsule 0.4 mg PO DAILY Trulicity 0.75 mg/0.5 mL pen injector 0.75 mg subcut QWEEK valsartan 160 mg tablet 160 mg PO BID Primary Care Provider: Aidan Argueta Referrals: Aidan Argueta MD [Primary Care Provider] - Print Language: Taiwanese Disposition Disposition: Acute Care Hospital Discharge Location: [facility] Discharge Date/Time: 06/26/24 13:29
[2024-06-26] MEDS: TRANEXAMIC ACID 2,000 MG in 0.9% Normal Saline (100mL Bag) 100 ML 440 MG IV (12:14)
--- NOTE | 2024-06-26 12:15 | NURSING ---
[place] [id number] ICU BED 205 NURSE TO NURSE [phone]
[2024-06-26] MEDS: hydrALAZINE 20 MG/ML Vial 10 MG IV (12:16)
--- NOTE | 2024-06-26 12:26 | NURSING ---
CALLED [facility], ETA IS 60 MIN
--- NOTE | 2024-06-26 12:41 | ED.RN ---
pt called out saying he does not feel well, noticed to be pale. HR in 40s. BP in 60s. zofran given, emesis x1. placed on 2L NC. see vitals.
[2024-06-26] MEDS: 0.9% Normal Saline (500mL Bag) 500 ML 999 ML IV (12:50)
[2024-06-26 12:56] LABS: Bedside Glucose 130 mg/dL (74-106)
--- NOTE | 2024-06-26 13:28 | ED.RN ---
dentures were given to when pt was nauseated.
[2024-06-28 03:21] LABS: PTHIN 43.1 pg/mL (18.4-80.1)
== END 2024-06-26 13:29 | disposition short-term general hospital (02) ==
PROVIDERS: Emergency Provider Emergency Medicine; PCP Family Medicine; Visit Provider Emergency Medicine
DX: S06.6X0A Traumatic subarachnoid hemorrhage without loss of consciousness, initial encounter (principal); E11.9 Type 2 diabetes mellitus without complications; Z96.612 Presence of left artificial shoulder joint; Z96.611 Presence of right artificial shoulder joint; E78.00 Pure hypercholesterolemia, unspecified; S01.01XA Laceration without foreign body of scalp, initial encounter; R55 Syncope and collapse; S42.001A Fracture of unspecified part of right clavicle, initial encounter for closed fracture; S20.20XA Contusion of thorax, unspecified, initial encounter; I10 Essential (primary) hypertension; Z79.82 Long term (current) use of aspirin; Z79.899 Other long term (current) drug therapy; Z79.84 Long term (current) use of oral hypoglycemic drugs; X58.XXXA Exposure to other specified factors, initial encounter
CPT/HCPCS: 12002; 70450; 71260; 72125; 74177; 80048; 82962; 83970; 85025; 96365; 96375; 96376; 99285; J7030; J7040; Q9967; A4216; J2405

== ENCOUNTER 2024-07-06 17:53 | Emergency (ER) | payer MEDICARE, OTHER, SELFPAY ==
[2024-07-06] VITALS (8 sets, daily range): BP systolic 135–162; BP diastolic 80–93; PULSE 104–127; RESP 20–26; TEMP 36.6–38.2; O2SAT 88–96; BMI 36.1
--- NOTE | 2024-07-06 18:16 | EKG12_ITS ---
Test Reason : WEAKNESS Blood Pressure : */* mmHG Vent. Rate : 126 BPM Atrial Rate : 126 BPM P-R Int : 166 ms QRS Dur : 106 ms QT Int : 288 ms P-R-T Axes : 32 -40 112 degrees QTcB Int : 417 ms Sinus tachycardia Left axis deviation Nonspecific ST and T wave abnormality Abnormal ECG Confirmed by JENNIFFER IBANEZ, MATTHEW ([id number]), film and video editor JC BRITO ([id number]) on 07/09/2024 9:37:34 AM Referred By: Confirmed By: MATTHEW ABAD MD
[2024-07-06 18:41] LABS: Bacteria 0 SEEN /hpf (None Seen); Mucous, Urine 0 SEEN /hpf (<or=2+); Red Blood Cells-Urine 0 SEEN /hpf (0-5); White Blood Cells 0 SEEN /hpf (0-5)
--- NOTE | 2024-07-06 18:41 | CT_ITS ---
INDICATION: Follow-up intracranial hemorrhage. EXAMINATION: CT BRAIN - CT Head or Brain W/O Contrast Injection TECHNIQUE: Multiple axial images were obtained of the head without intravenous contrast. A radiation dose optimization technique was used for this scan. IV Contrast dosage and agent: None. COMPARISON: 06/26/[address] FINDINGS: BRAIN PARENCHYMA: Interval near total resolution of acute intracranial hemorrhage with minimal residual focal subdural hematoma right posterior parietal convexity, 3 mm thickness without significant mass effect or edema. No evidence of acute infarct. No intracranial mass or mass effect. There is preservation of the león/white matter interface. Posterior fossa structures are unremarkable. CSF SPACES: Stable. No hydrocephalus. Basal cisterns are patent. CALVARIUM, SKULL BASE, PARANASAL SINUSES AND MASTOID AIR CELLS: Clear. No acute fracture. Decreasing right posterior parietal cephalhematoma. CT/Brain/Head without Contrast IMPRESSION: Near total resolution of previously identified intracranial hemorrhage with small focal subdural collection at the right posterior parietal convexity, 3 mm thickness. Electronically Signed: Mandeep Bhandari MD at 20:19 EDT ,
--- NOTE | 2024-07-06 18:41 | CT_ITS ---
We are attempting to reach an attending provider to discuss findings. An addendum with communication details will be sent when the communication is complete. STUDY: CTA CHEST REASON FOR EXAM: Male, 74 years old. Syncope RADIATION DOSAGE (If Supplied By Facility): CTDIvol = ( 15.79 ) mGy, DLP = ( 699.17 ) mGycm TECHNIQUE: The examination was performed with the intravenous administration of 100mL Isovue-370. Post-processing of the angiographic images was performed, with multiplanar reformation and 3D reconstruction. Individualized dose optimization techniques were used for this CT. COMPARISON: 06/26/2024 FINDINGS: Filling defects in the segmental branches to the bilateral lower lobes, right upper lobe and lingula. No thoracic aneurysm. There is no demonstrated aortic dissection. Normal heart and pericardium. RV to LV ratio less than 1. Normal mediastinum. Normal hilar regions. There are no pulmonary infiltrates. There are no pleural effusions. No acute or aggressive osseous abnormality. Bilateral shoulder prostheses. No acute findings in the upper abdomen. Cholelithiasis. CT/CTA Chest W/WO Contrast IMPRESSION: Study positive for pulmonary emboli in segmental branches to the bilateral lower lobes, right upper lobe and lingula. Electronically Signed: Mandeep Bhandari MD at 20:27 EDT ,
[2024-07-06 18:42] LABS: Absolute Lymphocyte Count 0.42 X10^3/uL (0.83-4.51); Basophil# 0.04 X10^3/uL; Basophil% 0.3 % (0-1); Eosinophil# 0.06 X10^3/uL; Eosinophils% 0.4 % (0-5); Hemoglobin 12.3 g/dL (13.0-16.5); Lymphocyte # 0.42 X10^3/ul (0.83-4.51); Lymphocyte % 2.8 % (19-41); Mean Corp Hgb Conc 34.2 g/dL (32-36); Mean Corpuscular Hgb 29.9 pg (27.0-32.0); Mean Corpuscular Volume 87.4 fL (80-94); Mean Platelet Vol. 9.2 fl (6.2-12.0); Monocyte% 2.7 % (0-10); NRBC Flagged by Analyzer 0 % (0-5); Neutrophil # 13.95 X10^3/uL (2.7-7.7); Neutrophil % 93.3 % (47-70); POSITIVE DIFFERENTIAL YES; Platelet Count 220 K/mm3 (150-450); RBC Distribution Width CV 13.9 % (11.6-14.6); RBC Distribution Width SD 43.9 fl (35.1-43.9); Red Blood Count 4.12 M/mm3 (4.6-6.2)
[2024-07-06 18:42] LABS: Color, Urine Yellow (Yellow); Glucose, Dipstick 1000 mg/dl (Normal); Ketone-Dipstick 50 mg/dl (Negative); Leukocyte Esterase-Dipstick Negative /ul (Negative); Nitrite-Dipstick Negative (Negative); Occult Blood-Urine Negative /ul (Negative); Protein-Dipstick 15 mg/dl (Negative); Specific Gravity, Urine 1.015 (1.002-1.030); Urine Bilirubin Dipstick Negative (Negative); Urine Clarity Clear (Clear); Urine Urobilinogen Normal (Normal)
[2024-07-06] MEDS: 0.9% Normal Saline (1000mL) 1,000 ML 999 ML IV (18:49)
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
[2024-07-06 18:50] LABS: Squamous Epithelial Cells - UA 0-5 SEEN /hpf (0-5)
[2024-07-06] MEDS: Acetaminophen 500 MG Tablet 1000 MG PO (18:58)
[2024-07-06 19:02] LABS: ALB/GLOB Ratio 0.9 RATIO (0.9-2.4); AST(SGOT) 33 U/L (15-37); Alanine Aminotransfer ALT/SGPT 54 U/L (16-61); Albumin, Serum 3.4 g/dL (3.2-5.0); Alkaline Phosphatase 98 U/L (45-117); Anion Gap 9 (5-15); BUN 23 mg/dL (7-18); BUN/Creat Ratio 15.9 RATIO (10-20); Calcium,Total 9.2 mg/dL (8.5-10.1); Chloride 106 mmol/L (98-107); Creatinine, Serum 1.45 mg/dL (0.70-1.30); EST Glomerular Filtration Rate 51 mL/min (>60); Est Glom Filt Rate - Afr Amer 61 mL/min (>60); Estimated Creatinine Clearance 53.23 ml/min; Globulin 3.7 g/dL (2.2-4.2); Glucose 250 mg/dL (74-106); Potassium 4.4 mmol/L (3.5-5.1); Protein, Total 7.1 g/dL (6.4-8.2); Sodium Level 136 mmol/L (136-145); Troponin-I HS 11 pg/mL (3.0-78.0)
--- NOTE | 2024-07-06 19:10 | RAD_ITS ---
INDICATION: cough EXAMINATION/TECHNIQUE: X-RAY - portable upright AP chest x-ray COMPARISON: 12/28/2017 FINDINGS: LINES/DEVICES: None. LUNGS: No consolidation, edema or effusion. No pneumothorax. MEDIASTINUM AND CARDIOVASCULAR STRUCTURES: Cardiac silhouette stable within normal limits. BONES AND SOFT TISSUES: Bilateral shoulder prostheses. No acute bony abnormality. RAD/Chest 1 View (Portable) IMPRESSION: No radiographic evidence of acute cardiopulmonary disease. Electronically Signed: Mandeep Bhandari MD at 19:56 EDT ,
[2024-07-06] MEDS: HEPARIN/D5w 25,000 UNITS 25,000 UNITS/250 ML IV.SOLN. 15 UNITS CONT INF (21:04)
[2024-07-06 21:07] LABS: International Normalized Ratio 1.2; Partial Thromboplast Time 21.6 Seconds (24.1-36.2); Prothrombin Time (Protime)PT. 14.8 SECONDS (11.7-14.9)
[2024-07-06 22:36] LABS: Reflex Lactate? Y
--- NOTE | 2024-07-08 00:03 | ED.RN ---
Maggie muniz at [facility] notified of blood culture results of anerobic bottles having gram positive and gram negative cocci .
== END 2024-07-06 21:34 | disposition short-term general hospital (02) ==
PROVIDERS: Nurse Practitioner; Emergency Provider Emergency Medicine; PCP Family Medicine; Visit Provider Emergency Medicine
DX: I26.99 Other pulmonary embolism without acute cor pulmonale (principal); E11.9 Type 2 diabetes mellitus without complications; R55 Syncope and collapse; E78.00 Pure hypercholesterolemia, unspecified; I10 Essential (primary) hypertension; Z79.84 Long term (current) use of oral hypoglycemic drugs; Z79.899 Other long term (current) drug therapy; Z79.82 Long term (current) use of aspirin
CPT/HCPCS: 70450; 71045; 71275; 80053; 81001; 83605; 84484; 85025; 85610; 85730; 87040; 87077; 87631; 93005; 96360; 96361; 99285; Q9967; A4216

== ENCOUNTER → 2024-07-16 | Outpatient (CLI) | payer MEDICARE, OTHER, SELFPAY ==
[2024-07-17 13:08] LABS: PSA, Free 0.45 ng/mL; PSA, Free % 14.7 % (.)
== END | disposition home or self-care (01) ==
PROVIDERS: PCP Family Medicine; Referring Provider Urology; Visit Provider Urology
DX: R97.20 Elevated prostate specific antigen [PSA] (principal)
CPT/HCPCS: 36415; 84153; 84154

== ENCOUNTER → 2024-09-24 | Outpatient (CLI) | payer MEDICARE, OTHER, SELFPAY | END | disposition home or self-care (01) | LOC: LABSPEC 15:22 | PROVIDERS: PCP Family Medicine; Referring Provider Family Medicine; Visit Provider Family Medicine | DX: R30.0 Dysuria (principal) | CPT/HCPCS: 87077; 87086; 87088; 87186 ==

== ENCOUNTER → 2024-11-05 | Outpatient (CLI) | payer MEDICARE, OTHER, SELFPAY ==
[2024-11-05 08:12] LABS: Bacteria 0 SEEN /hpf (None Seen); Mucous, Urine 0 SEEN /hpf (<or=2+)
[2024-11-05 10:41] LABS: Color, Urine Yellow (Yellow); Glucose, Dipstick 1000 mg/dl (Normal); Ketone-Dipstick Negative (Negative); Leukocyte Esterase-Dipstick Negative /ul (Negative); Nitrite-Dipstick Negative (Negative); Occult Blood-Urine Negative /ul (Negative); Protein-Dipstick Negative (Negative); Urine Bilirubin Dipstick Negative (Negative); Urine Clarity Clear (Clear); Urine Urobilinogen Normal (Normal)
[2024-11-05 10:48] LABS: Absolute Lymphocyte Count 1.35 X10^3/uL (0.83-4.51); Absolute Neutrophil Count 5.5 X10^3/uL (2.0-7.7); Basophil# 0.06 X10^3/uL; Basophil% 0.8 % (0-1); Eosinophil# 0.28 X10^3/uL; Eosinophils% 3.6 % (0-5); Hematocrit 41.5 % (40-54); Hemoglobin 13.2 g/dL (13.0-16.5); Lymphocyte # 1.35 X10^3/ul (0.83-4.51); Lymphocyte % 17.3 % (19-41); Mean Corp Hgb Conc 31.8 g/dL (32-36); Mean Corpuscular Hgb 28.2 pg (27.0-32.0); Mean Corpuscular Volume 88.7 fL (80-94); Mean Platelet Vol. 10.1 fl (6.2-12.0); Monocyte# 0.63 X10^3/uL; Monocyte% 8.1 % (0-10); NRBC Flagged by Analyzer 0 % (0-5); Neutrophil # 5.46 X10^3/uL (2.7-7.7); Neutrophil % 69.8 % (47-70); Platelet Count 250 K/mm3 (150-450); RBC Distribution Width CV 16.3 % (11.6-14.6); RBC Distribution Width SD 52.4 fl (35.1-43.9); Red Blood Cells-Urine 0 SEEN /hpf (0-5); Red Blood Count 4.68 M/mm3 (4.6-6.2); Squamous Epithelial Cells - UA 0-5 SEEN /hpf (0-5); White Blood Cells 0-5 SEEN /hpf (0-5); White Blood Count 7.8 K/mm3 (4.4-11.0)
[2024-11-05 11:29] LABS: Microalbumin,Random Urine < 12.0 mg/L (NO RANGE EST.); Microalbumin:Creatinine Ratio UNABLE TO CALCULATE mg/g CRE
[2024-11-05 11:53] LABS: ALB/GLOB Ratio 1.3 RATIO (0.9-2.4); AST(SGOT) 20 U/L (<=37); Alanine Aminotransfer ALT/SGPT 21 U/L (<=46); Alkaline Phosphatase 96 U/L (40-129); Anion Gap 11 (5-15); BUN 18 mg/dL (4-19); BUN/Creat Ratio 23.3 RATIO (10-20); Carbon Dioxide 21.3 mmol/L (22.0-29.0); Chloride 107 mmol/L (96-108); Cholesterol 130 mg/dL (<=200); Creatinine, Serum 0.78 mg/dL (0.70-1.20); EST Glomerular Filtration Rate 94 (>60); Globulin 3.2 g/dL (2.2-4.2); Glucose 149 mg/dL (70-99); High Density Lipoprotein 52 mg/dL; Low Density Lipoprotein Calc. 58 mg/dL; Potassium 4.2 mmol/L (3.3-5.1); Protein, Total 7.2 g/dL (5.9-8.4); Sodium Level 140 mmol/L (133-145); Total Bilirubin 0.22 mg/dL (0.00-1.30); Triglycerides 97 mg/dL; Very Low Density Lipoprotein 19 mg/dL (5-40); Vitamin D,25 Hydroxy 28.8 ng/mL (30-100); cholesterol:hdl ratio screen 2.49
== END | disposition home or self-care (01) ==
LOC: MFPLAB 08:03
PROVIDERS: PCP Family Medicine; Referring Provider Family Medicine; Visit Provider Family Medicine
DX: E55.9 Vitamin D deficiency, unspecified (principal); E11.59 Type 2 diabetes mellitus with other circulatory complications
CPT/HCPCS: 36415; 80053; 80061; 81001; 82043; 82306; 82570; 83036; 85025

== ENCOUNTER → 2025-05-02 | Outpatient (CLI) | payer MEDICARE, OTHER, SELFPAY ==
[2025-05-02 10:45] LABS: Hematocrit 38.3 % (40-54); Hemoglobin 12.5 g/dL (13.0-16.5); Immature Granulocytes Count 0.030 X10^3/uL (0.0-0.0); Mean Corp Hgb Conc 32.6 g/dL (32-36); Mean Corpuscular Volume 89.5 fL (80-94); Mean Platelet Vol. 10.0 fl (6.2-12.0); NRBC Flagged by Analyzer 0 % (0-5); Platelet Count 279 K/mm3 (150-450); RBC Distribution Width CV 14.6 % (11.6-14.6); RBC Distribution Width SD 47.8 fl (35.1-43.9); Red Blood Count 4.28 M/mm3 (4.6-6.2); White Blood Count 7.1 K/mm3 (4.4-11.0)
[2025-05-02 10:56] LABS: Creatinine, Urine (random) 44.30 mg/dL (39.00-259.00); Microalbumin,Random Urine < 12.0 mg/L (<20 mg/L)
[2025-05-02 11:07] LABS: AST(SGOT) 21 U/L (<=37); Alanine Aminotransfer ALT/SGPT 24 U/L (<=46); Albumin, Serum 4.2 g/dL (3.4-4.8); Alkaline Phosphatase 109 U/L (40-129); Anion Gap 14 (5-15); BUN 20 mg/dL (4-19); BUN/Creat Ratio 22.3 RATIO (10-20); Calcium,Total 10.3 mg/dL (7.6-11.0); Carbon Dioxide 19.8 mmol/L (21.0-32.0); Chloride 103 mmol/L (98-108); Cholesterol 141 mg/dL (<=200); Globulin 3.4 g/dL (2.2-4.2); Glucose 116 mg/dL (70-99); Low Density Lipoprotein Calc. 74 mg/dL; Potassium 4.4 mmol/L (3.3-5.1); Triglycerides 69 mg/dL; Very Low Density Lipoprotein 14 mg/dL (5-40); cholesterol:hdl ratio screen 2.68
[2025-05-02 11:37] LABS: Ferritin 24 ng/mL (37-417); Iron 94 ug/dL (65-175); Iron Binding Capacity,Total 396 ug/dL (250-450); Iron Binding Capacity,Unsat 302 ug/dL (228-428)
[2025-05-02 12:11] LABS: Vitamin D,25 Hydroxy 40.7 ng/mL (30-100)
== END | disposition home or self-care (01) ==
LOC: MFPLAB 08:31
PROVIDERS: PCP Family Medicine; Referring Provider Family Medicine; Visit Provider Family Medicine
DX: D64.9 Anemia, unspecified (principal); E11.8 Type 2 diabetes mellitus with unspecified complications; E55.9 Vitamin D deficiency, unspecified
CPT/HCPCS: 36415; 80053; 80061; 82043; 82306; 82570; 82728; 83036; 83540; 83550; 85025

== ENCOUNTER 2025-05-20 10:37 | Outpatient (CLI) | payer MEDICARE, OTHER, SELFPAY ==
--- NOTE | 2025-05-20 10:45 | CDU_ITS ---
Reason For Study Reason For Study: Stenosis Rt. Velocities/BP Lt. Velocities/BP Prox CCA 120/21 cm/sec. Prox CCA 127/16 cm/sec. Mid CCA 81/16 cm/sec. Mid CCA 138/16 cm/sec. Dist CCA 85/18 cm/sec. Dist CCA 74/18 cm/sec. Prox ICA 117/19 cm/sec. Prox ICA 66/20 cm/sec. Mid ICA 115/30 cm/sec. Mid ICA 101/34 cm/sec. Dist ICA 90/27 cm/sec. Dist ICA 64/22 cm/sec. Rt. ICA/CCA = 1.5. Lt. ICA/CCA = 0.7. Prox ECA 115/14 cm/sec. Prox ECA 78/11 cm/sec. Rt. Vert. 35/15 cm/sec. Lt. Vert. 34/0 cm/sec. Right Extracranial There is heterogeneous, irregular atherosclerotic plaque noted in the right common carotid artery. There is heterogeneous, irregular atherosclerotic plaque noted in the right internal carotid artery. There is intimal thickening but no significant atherosclerotic plaque noted in the right external carotid artery. Antegrade flow is noted in the right vertebral artery. Left Extracranial There is heterogeneous, irregular atherosclerotic plaque noted in the left common carotid artery. There is heterogeneous, irregular atherosclerotic plaque noted in the left internal carotid artery. The atherosclerotic plaque causes acoustic shadowing. There is heterogeneous, irregular atherosclerotic plaque noted in the left external carotid artery. Antegrade flow is noted in the left vertebral artery. Procedure Carotid Duplex 52125. This is a Carotid Duplex examination using B-mode, color flow and specral Doppler. Exam performed in department. VL/Carotid Duplex Ultrasound Interpretation Summary Mild (<50%) stenosis right extracranial internal carotid. Mild (<50%) stenosis left extracranial internal carotid. Acoustic shadowing precludes león-scale imaging of portions of the left interna l carotid artery. Therefore, the degree of stenosis is determined by velocity criteria alone. Flow within the vertebral arteries is antegrade bilaterally. Ordering Physician: Aidan Argueta Referring Physician: Aidan Argueta Performed By: Mikaela Pratt, TATYANA, RVT
== END 2025-05-20 23:59 | disposition home or self-care (01) ==
PROVIDERS: PCP Family Medicine; Referring Provider Family Medicine; Visit Provider Family Medicine
DX: I65.23 Occlusion and stenosis of bilateral carotid arteries (principal)
CPT/HCPCS: 93880; J0153

== ENCOUNTER → 2025-06-20 | Outpatient (CLI) | payer MEDICARE, OTHER, SELFPAY ==
--- NOTE | 2025-06-20 12:32 | MRI_ITS ---
PROCEDURE: SPINE LUMBAR (ROUTINE) 06/20/2025 REASON FOR EXAM: RADICULOPATHY TECHNIQUE: Procedure Code: MRISPL Modality: MR Procedure: SPINE LUMBAR (ROUTINE) COMPARISON: Lumbar spine series of 06/14/2025. FINDINGS: Compared with the prior lumbar MRI 09/16/2022, progressive worsening degenerative disc disease of the mid to lower lumbar spine is noted Vertebrae: Again seen is lumbar dextroscoliosis, centered about the L3-L4 level. Vertebral bodies appear intact. Endplate reactive changes most prominent about the L4-L5 level As on the comparison plain film study, marked degenerative disc disease throughout the lumbar spine is seen, from L2 through S1 with marked disc narrowing, greatest at L3-L4, L4-L5, and L5-S1 levels. Alignment: No evidence of spondylolysis or spondylolisthesis. Conus Medullaris: Unremarkable in appearance, terminating at the T12-L1 level. L1-2: Mild posterior facet and ligamentum flavum hypertrophy is seen. Very mild disc bulge is noted. No definite neural foraminal narrowing is seen. No significant degree of spinal canal stenosis is noted. L2-3: [id number] left and moderate right posterior facet and ligamentum flavum hypertrophy is seen. Mild vertebral body osteophytosis and a mild diffuse disc bulge are noted. Moderately severe spinal canal narrowing is seen, along with probably moderate bilateral neural foraminal narrowing. L3-4: Mild posterior facet and especially bilateral ligamentum flavum hypertrophy is noted. A mild diffuse disc bulge is noted. Moderate to moderately severe spinal canal narrowing is seen. [id number] right and at least moderate left neural foraminal narrowing also noted. L4-5: Mild posterior facet and ligamentum flavum hypertrophy is seen. A moderate broad-based disc protrusion is noted. Moderately severe spinal canal narrowing is present, along moderate to moderately severe bilateral neural foraminal narrowing. L5-S1: Inferior L5 osteophytosis is seen bilaterally, left somewhat greater than right. A mild disc bulge is noted. Mild spinal canal narrowing is present, along moderately severe bilateral neural foraminal narrowing. Sacrum: Limited imaging of the upper sacrum and sacroiliac joints demonstrates at least mild bilateral sacroiliac joint degenerative change. No acute osseous process is seen MRI/Spine Lumbar (Routine) IMPRESSION: Progressive worsening of multilevel lumbar degenerative disc disease, with exte nsive findings as described. Reading Location: [id number]
== END | disposition home or self-care (01) ==
LOC: OPMRI 12:29
PROVIDERS: PCP Family Medicine; Referring Provider Orthopaedic Surgery Orthopaedic Surgery of the Spine; Visit Provider Orthopaedic Surgery Orthopaedic Surgery of the Spine
DX: M54.16 Radiculopathy, lumbar region (principal); R29.818 Other symptoms and signs involving the nervous system
CPT/HCPCS: 72148

== ENCOUNTER → 2025-07-16 | Outpatient (CLI) | payer MEDICARE, OTHER, SELFPAY ==
--- OUTSIDE RECORDS SUMMARY | 2025-07-16 07:21 | XMS RPT_ITS | CCD ---
Author Organization [facility] Care Team Providers Care Jewel Bearing Grinder Name Role Phone JAIR HENNING Unavailable Unavailable LEUKHARDT, ADOLFO Antonia Unavailable Unavailable LEUKHARDT, ADOLFO H Unavailable Unavailable DIWAKAR, LOULOU Unavailable Unavailable LEUKHARDT, ADOLFO H Unavailable Unavailable LEUKHARDT, ADOLFO H Unavailable Unavailable DIWAKAR, LOULOU A Unavailable Unavailable HUGO CASTAÑEDA Attending Unavailable JAIR HENNING Primary Care Unavailable HUGO CASTAÑEDA Admitting Unavailable KIM CONRAD Consulting Unavailable HUGO CASTAÑEDA Attending Unavailable JAIR HENNING Primary Care Unavailable Kanu IBANEZ, Jair Brown Primary Care Provider Dr. Jair Henning Primary Care Provider Dr. Frandy Gage Attending Provider Dr. Hugo Castañeda Referring Provider Kanu IBANEZ, Jair Brown Primary Care Provider 1( [phone] Kanu IBANEZ, Jair Brown Primary Care Provider JAIR HENNING Primary Care Unavailable AUDREY JACOBS Referring Unavailable JAIR HENNING Primary Care Unavailable BERT ORTIZ Referring Unavailab le KANU, JAIR BROWN Primary Care Unavailable VICKI DUMONT Attending Unavailab le JAIR HENNING Primary Care Unavailable BERT ORTIZ Attending Unavailab le FREDIBERT HULL Referring Unavailab le KANU, JAIR BROWN Primary Care Unavailable BERT ORTIZ Attending Unavailab le VICKI DUMONT Referring Unavailab le CHICORELVICKI MACIAS Referring Unavailab le KANU, JAIR BROWN Primary Care Unavailable BERT ORTIZ Attending Unavailab le FREDIBERT Referring Unavailab le KANUJAIR PERRY Primary Care Unavailable JAIR HENNINGW Primary Care Unavailable BERT ORTIZ Referring Unavailab le PROVIDER, UNKNOWN Referring Unavailable KANUJAIR PERRY Primary Care Unavailable [place] VICKI COX Referring Unavailab le KANU, JAIR BROWN Primary Care Unavailable BERT ORTIZ Admitting Unavailab le FREDI, BERT MULTANI Attending Unavailab le KANU, JAIR BROWN Primary Care Unavailable JAIR PICKENS DDS Consulting Unavailable KAMERON SAHA DO Attending Unavailable KAMERON SAHA DO Primary Care Unavailable KAEMRON SAHA DO Admitting Unavailable JAIR PICKENS DDLauren Referring Unavailable PROVIDER, UNKNOWN Consulting Unavailable Kanu, Dr. Corrales Primary Care Provider Kanu, Dr. Corrales Referring Provider Dr. Kameron Saha Attending Provider Dr. Frandy Gage Attending Provider Aidan Argueta MD Primary Care Provider GODFREY MYERS Attending Unavailable AIDAN ARGUETA Primary Care Unavailable NONE, PCP Referring Unavailable TIFFANY ZARAGOZA Consulting Unava ilable DIANA STOVALL Attending Unavailable DIANA STOVALL Admitting Unavailable AIDAN ARGUETA Primary Care Unavailable WASHINGTON ELKINS Consulting Unavailable CINDY HARRISON Referring Unavailable ALONSO MARIN Attending Unavailable ALONSO MARIN Admitting Unavailable AIDAN ARGUETA Primary Care Unavailable AIDAN ARGUETA Primary Care Unavailable CLARENCE RHOADES Attending Unavailable AIDAN ARGUETA Primary Care Unavailable CLARENCE RHOADES Attending Unavailable Dr. Aidan Argueta MD Primary Care Provider Dr. Aidan Argueta MD Referring Provider Jair Gu MD Attending Provider Dr. Frandy Gage MD Attending Provider Aidan Shelton Attending Provider Dr. Aidan Argueta MD Attending Provider Dr. Aidan Argueta MD Primary Care Provider Dr. Aidan Argueta MD Attending Provider Dr. Aidan Argueta MD Referring Provider Kendall IBANEZ, Dr. Aidan Mejias Primary Care Physician Kendall IBANEZ, Dr. Aidan Mejias Attending Physician Erick IBANEZ, Dr. Aubrey Hassan Attending Physician Jnoh IBANEZ, Dr. Kenyon Attending Physician Too IBANEZ, Dr. Wise Attending Physician Jonh IBANEZ, Dr. Kenyon Referring Provider SchcelestenerAidan E Attending Unavailable Schinner, Aidan E Primary Care Unavailable Schinner, Aidan E Referring Unavailable Schinner, Aidan E Primary Care Unavailable Schinner, Aidan E Attending Unavailable Schinner, Aidan E Referring Unavailable Schinner, Aidan E Primary Care Unavailable Schinner, Aidan E Attending Unavailable Schinner, Aidan E Referring Unavailable Schinner, Aidan E Primary Care Unavailable Damaso Lowery Attending Unavailable Damaso Lowery Referring Unavailable Frandy Gage Attending Unavailable Schinner, Aidan E Primary Care Unavailable Schinner, Aidan E Primary Care Unavailable Aidan Pratt NP Attending Unavailable Schinner, Aidan E Referring Unavailable Frandy Gage Attending Unavailable Schinner, Aidan E Primary Care Unavailable Schinner, Aidan E Primary Care Unavailable Schinner, Aidan E Referring Unavailable Kostas Borja Attending Unavailable Schinner, Aidan E Primary Care Unavailable Schinner, Aidan E Attending Unavailable Schinner, Aidan E Referring Unavailable Schinner, Aidan E Primary Care Unavailable Kostas Borja Attending Unavailable Kostas Borja Referring Unavailable Schinner, Aidan E Primary Care Unavailable Kostas Borja Referring Unavailable Kostas Borja Attending Unavailable Schinner, Aidan E Primary Care Unavailable Kostas Borja Attending Unavailable Kostas Borja Referring Unavailable Schinner, Aidan E Primary Care Unavailable Kostas Borja Attending Unavailable Schinner, Aidan E Referring Unavailable Schinner, Aidan E Primary Care Unavailable Jair Gu Attending Unavailable Schinner, Aidan E Referring Unavailable Allergies Allergy Classification Reported Allergen(s) Allergy Type Date of Onset Reaction(s) Facility (20 sources) acetaminophen / HYDROcodone; Translations: [HYDROCODONE-ACETAM INOPHEN] Drug Allergy 12-17-19 18 Intolerance, Nausea And Vomiting [facility] Repository (20 sources) sulfamethoxazole / trimethoprim; Translations: [SULFAMETHOXAZOLE-T RIMETHOPRIM] Drug Allergy 12-17-19 18 Rash, Hives [facility] Repository (20 sources) traMADol; Translations: [TRAMADOL] Drug Allergy 12-17-19 Unknown, Rash, Dizziness [facility] Repository Comment on above: WEAKNESS (16 sources) HYDROcodone; Translations: [hydrocodone bitartrate] Drug Allergy 02-29-20 18 Nausea [facility] (15 sources) Sulfamethoxazole Drug Allergy 02-29-20 18 Rash [facility] (15 sources) Trimethoprim Drug Allergy 02-29-20 18 Rash [facility] (13 sources) Lisinopril Propensity to adverse reactions 06-26-20 Cough [facility] (1 source) Sulfamethoxazole Drug Allergy 07-04-20 [facility] Repository (1 source) Trimethoprim Drug Allergy 07-04-20 [facility] Repository Medications Current Medications Medication Drug Class(es) Dates Sig (Normalized) Sig (Original) acetaminophen 325 mg / oxyCODONE hydrochloride 5 mg oral tablet (16 sources) Opioid Agonist Start: 03-19-2022 End: 03-26-2022 take 1-2 tablets by mouth every four hours as needed oxyCODONE-acetami nophen (PERCOCET) 5-325 mg tablet Indications: pain Take 1-2 tablets by mouth every 4 hours as needed for up to 7 days. 28 tablet 0 03/19/2022 03/26/2022 Active Start: 05-11-2016 End: 12-16-2017 Oxycodone-Acetaminophen 1 TA BLET tablet Discontinued 1 - 2 {tbl} PO 4 TIMES DAILY NEEDED as needed for Pain May 11, 2016 1:09pm December 16, 2017 10:33am Start: 05-11-2016 End: 12-16-2017 take 1 tablet by mouth four times daily as needed Oxycodone-Acetaminophen Discontinued 1 - 2 TABLET PO 4 TIMES DAILY NEEDED May 11, 2016 1:09pm December 16, 2017 10:33am Comment on above: Take 1-2 tablets by mouth every 4 hours as needed for up to 7 days. aspirin 81 mg delayed releas e oral tablet (20 sources) Platelet Aggregation Inhibitor, Nonsteroidal Anti-inflammatory Drug Start: 12-16-2017 End: 06-27-2024 Start: 08-15-2013 End: 05-11-2016 take 1 tablet by mouth once daily Aspirin 81 MG Tab.Chew Discontinued 81 mg PO DAILY@0800 August 15, 2013 1:00am May 11, 2016 1:09pm Comment on above: Take 81 mg by mouth once daily. atorvastatin 10 mg oral tablet (20 sources) HMG-CoA Reductase Inhibitor Start: 08-10-2013 End: 07-12-2024 take 1 tablet by mouth once daily Comment on above: Take 10 mg by mouth once daily. bacitracin 0.5 unt/mg topical ointment (15 sources) Start: 06-27-2024 bacitracin 500 UNIT/GM ointment Apply topically 3 times daily. 14 g 06/27/2024 Active Start: 06-26-2024 End: 06-27-2024 apply 1 dose topically three times daily Topical, 3 times daily, First dose on Tue06/26/24 at 1615 calcium carbonate 1250 mg / cholecalciferol 125 unt oral tablet (20 sources) Vitamin D Start: 02-10-2022 Start: 07-10-2015 End: 12-16-2017 Calcium Carbonate-Vitamin D3 1 EACH tablet Discontinued 1 NMA PO TWICE A DAY July 10, 2015 1:00am December 16, 2017 10:33am Start: 07-10-2015 End: 12-16-2017 Calcium Carbonate-Vitamin D3 Discontinued 1 EACH PO TWICE A DAY July 10, 2015 1:00am December 16, 2017 10:33am Start: 10-25-2014 End: 07-10-2015 take 1 tablet by mouth twice daily at mealtime Calcium Carbonate-Vitamin D3 (Os-[place] 500mg + D) 1 TABLET tablet Discontinued 1 {tbl} PO TWICE DAILY WITH MEALS October 25, 2014 1:00am July 10, 2015 11:04am Calcium Carbonate-Vit D-Min (Calcium 600+D3 Plus Minerals) 600-800 MG-UNIT tablet (13 sources) take 600-800 tablets by mouth once daily Calcium Carbonate-Vit D-Min (Calcium 600+D3 Plus Minerals) 600-800 MG-UNIT tablet Take 1 tablet by mouth daily. Suspended take 600-800 tablets by mouth once daily Calcium Carbonate-Vit D-Min (Calcium 600 +D3 Plus Minerals) 600-800 MG-UNIT tablet Take 1 tablet by mouth daily. Active dapagliflozin 10 mg oral tablet (20 sources) Sodium-Glucose Cotransporter 2 Inhibitor Start: 07-06-2024 End: 07-12-2024 take 1 tablet by mouth once daily 0.5 ml dulaglutide 1.5 mg/ml auto-injector (18 sources) GLP-1 Receptor Agonist Start: 06-26-2024 glimepiride 1 mg oral tablet (20 sources) Sulfonylurea Start: 06-26-2024 take 1 tablet by mouth once daily Start: 12-16-2017 End: 06-26-2024 take 1 tablet by mouth once daily Glimepiride 2 mg tablet Discontinued 2 mg PO DAILY 90 90 0 December 16, 2017 12:00am June 26, 2024 10:19am End: 03-05-2022 take 2 tablets by mouth once daily at breakfast Comment on above: Take 2 mg by mouth d aily with breakfast. Unknown dose Take 1 tablet by deven th once daily. metFORMIN hydrochloride 500 mg oral tablet (20 sources) Biguanide Start: 08-10-2013 take 2 tablets by mouth twice daily at mealtime Start: 08-10-2013 take 1000 mg by mout h twice daily at mealtime Metformin Active 1000 MG PO TWICE DAILY WITH MEALS August 10, 2013 1:00am take 1 tablet by deven th in the morning metFORMIN (Glucophage) 500 MG tablet Take 500 mg by mouth in the morning and 500 mg in the evening. Take with meals. Active take 1 tablet by deven th twice daily metFORMIN ER (GLUMETZA) 500 mg 24 hr tablet Take 1,000 mg by mouth twice daily. 0 Active Comment on above: Take 1,000 mg by deven th twice daily. Multiple Vitamins-Minerals (MULTIVITAMIN ADULT, MINERALS, PO) (13 sources) take 1 tablet by mouth once daily Multiple Vitamins-Minerals (MULTIVITAMIN ADULT, MINERALS, PO) Take 1 tablet by mouth daily. Suspended take 1 tablet by mouth once maki y Multiple Vitamins-Minerals (MULTIVITAMIN ADULT, MINERALS, PO) Take 1 tablet by mouth daily. Active Multivitamin preparation (19 sources) Start: 02-10-2022 take 1 tablet by mouth once daily Multivitamin Active 1 TABLET PO DAILY February 09, 2022 11:00pm Start: 02-10-2022 take 1 tablet by deven th once daily Multivitamin Active 1 TABLET PO DAILY February 10, 2022 12:00am Start: 07-10-2015 End: 12-16-2017 Multivitamin Discontinued 1 EACH PO DAILY July 10, 2015 2:29pm December 16, 2017 10:33am Start: 07-10-2015 End: 12-16-2017 Multivitamin Discontinued 1 EACH PO DAILY July 10, 2015 12:00am December 16, 2017 9:33am Start: 07-10-2015 End: 12-16-2017 Multivitamin Discontinued 1 EACH PO DAILY July 10, 2015 1:00am December 16, 2017 10:33am Multivitamin Tablet (5 sources) Start: 02-10-2022 Start: 02-10-2022 Multivitamin T ablet Active 1 {tbl} PO DAILY February 10, 2022 12:00am ondansetron 4 mg disintegrating oral tablet (20 sources) Serotonin-3 Receptor Antagonist Start: 07-12-2024 End: 07-19-2024 take 1 tablet by mouth every eight hours as needed for nausea and vomiting ondansetron ODT (Zofran-ODT) 4 MG disintegrating tablet Take 1 tablet (4 mg) by mouth every 8 hours as needed for nausea or vomiting for up to 7 days. 20 tablet 07/12/2024 07/19/2024 Active Start: 03-19-2022 take 1 tablet by deven th every eight hours as needed ondansetron (ZOFRAN) 4 mg tablet Take 1 tablet by mouth every 8 hours as needed. 10 tablet 0 03/19/2022 Active Start: 06-25-2015 End: 07-10-2015 take 1 tablet by mouth every eight hours as needed for nausea Ondansetron Hcl 8 MG tablet Discontinued 8 mg PO EVERY 8 HOURS NEEDED as needed for Nausea 20 0 June 25, 2015 12:00am July 10, 2015 11:02am Comment on above: Take 1 tablet by deven th every 8 hours as needed. sennosides, alf 8.6 mg oral tablet (11 sources) Start: 07-12-2024 End: 07-12-2025 take 2 tablets by mouth twice daily sennosides (Senokot) 8.6 MG tablet Take 2 tablets (17.2 mg) by mouth 2 times daily. 120 tablet 11 07/12/2024 07/12/2025 Active Start: 07-10-2024 End: 07-12-2024 take 1 tablet by mouth twice daily 17.2 mg (2 tablet), Oral, 2 times daily, First dose (after last modification) on Tue07/10/24 at 2100 Start: 07-08-2024 End: 07-10-2024 take 1 tablet by mouth twice daily 8.6 mg (1 tablet), Oral, 2 times daily, First dose on Tue07/08/24 at 2100 tamsulosin hydrochloride 0.4 mg oral capsule (20 sources) alpha-Adrenergic Minda Start: 06-26-2024 End: 07-12-2024 take 1 capsule by mouth once daily valsartan 160 mg oral tablet (20 sources) Angiotensin 2 Receptor Minda Start: 07-09-2024 End: 08-12-2024 take 1 tablet by mouth once daily valsartan (Diovan) 160 MG tablet Take 1 tablet (160 mg) by mouth daily. 30 tablet 07/13/2024 Active Start: 06-26-2024 End: 07-12-2024 take 1 tablet by mouth twice daily Completed/Discontinued Medications Medication Drug Class(es) Dates Sig (Normalized) Sig (Original) acetaminophen 500 mg oral tablet (11 sources) Start: 07-12-2024 End: 07-23-2024 take 2 tablets by mouth every eight hours acetaminophen (Tylenol) 500 MG tablet Take 2 tablets (1,000 mg) by mouth every 8 hours for 10 days. 60 tablet 07/12/2024 07/23/2024 Discontinued (Therapy completed) Start: 07-08-2024 End: 07-12-2024 take 1 tablet by mouth every eight hours 1,000 mg, Oral, Every 8 hours, First dose on Tue07/08/24 at 2300, Maximum dose of acetaminophen is 4000 mg from all sources in 24 hours. Start: 07-06-2024 End: 07-08-2024 take 1000 mg intravenously every eight hours 1,000 mg, IntraVENous, at 400 mL/hr, Administer over 15 Minutes, Every 8 hours, First dose on Tue07/06/24 at 2315, For 9 doses Start: 06-26-2024 End: 06-27-2024 take 1 tablet by mouth every eight hours as needed for pain and pain and headache and fever 1,000 mg, Oral, Every 8 hours PRN, mild pain (1-3), moderate pain (4-6), headaches, fever, Starting on Tue06/26/24 at 1501, Maximum dose of acetaminophen is 4000 mg from all sources in 24 hours. albuterol 0.833 mg/ml / ipratropium bromide 0.167 mg/ml inhalation solution (12 sources) Anticholinergic, beta2-Adrenergic Agonist Start: 07-08-2024 End: 07-12-2024 3 mL, Nebulization, 4 times daily PRN, wheezing, Starting on Tue07/08/24 at 1300 Start: 07-07-2024 End: 07-07-2024 3 mL, Nebulization, Once, On Tue07/07/24 at 1815, For 1 dose Start: 07-07-2024 End: 07-07-2024 3 mL, Nebulization, 2 times daily, First dose on Tue07/07/24 at 0145 Start: 06-27-2024 End: 06-27-2024 3 mL, Nebulization, Every 4 hours PRN, wheezing, Starting on Tue06/27/24 at 0915 Start: 06-26-2024 End: 06-27-2024 3 mL, Nebulization, 3 times daily, First dose on Tue06/26/24 at 2300 amoxicillin 875 mg / clavulanate 125 mg oral tablet (5 sources) Penicillin-class Antibacterial Start: 07-12-2024 End: 07-23-2024 take 1 tablet by mouth twice daily amoxicillin-clavulanate (Augmentin) 875-125 MG tablet Take 1 tablet by mouth 2 times daily for 10 days. 20 tablet 07/12/2024 07/23/2024 Discontinued (Therapy completed) apixaban 5 mg oral tablet (8 sources) Factor Xa Inhibitor Start: 07-09-2024 End: 10-10-2024 take 1 tablet by mouth twice daily apixaban (Eliquis) 5 MG tablet Take 1 tablet (5 mg) by mouth 2 times daily. 60 tablet 2 07/12/2024 10/10/2024 Discontinued (Therapy completed) bisacodyl 10 mg rectal suppository (2 sources) Stimulant Laxative Start: 07-11-2024 End: 07-12-2024 10 mg, Rectal, PRN, constipation, Starting on Tue07/11/24 at 1130 Calcium (9 sources) Phosphate Binder, Calcium take 1 tablet by mouth once daily CALCIUM ORAL Take 1 tablet by mouth once daily. 0 Active Comment on above: Take 1 tablet by deven once daily. cephalexin 500 mg oral capsule (15 sources) Cephalosporin Antibacterial Start: 07-19-2015 End: 07-21-2015 take 1 capsule by mouth at bedtime Cephalexin (Keflex) 500 MG capsule Discontinued 500 mg PO AT BEDTIME July 19, 2015 1:00am July 21, 2015 9:52am cholecalciferol 9.52 unt/ml / glucose 357 mg/ml oral gel (4 sources) Vitamin D Start: 07-07-2024 End: 07-12-2024 15 g, Oral, As needed, low blood sugar, Starting on Tue07/07/24 at 0014, If blood glucose less than 50 mg/dL and patient ALERT and NOT NPO, give 2 tubes glucose gel. If blood glucose less than 70 mg/dL and patient ALERT and NOT NPO, give 1 tube glucose gel. Repeat blood glucose in 15 minutes. If blood glucose is less than 70 mg/dL, repeat treatment and recheck blood glucose in 15 minutes x2 and notify provider. Start: 06-26-2024 End: 06-27-2024 15 g, Oral, As needed, low b lood sugar, Starting on Tue06/26/24 at 1621, If blood glucose less than 50 mg/dL and patient ALERT and NOT NPO, give 2 tubes glucose gel. If blood glucose less than 70 mg/dL and patient ALERT and NOT NPO, give 1 tube glucose gel. Repeat blood glucose in 15 minutes. If blood glucose is less than 70 mg/dL, repeat treatment and recheck blood glucose in 15 minutes x2 and notify provider. ciprofloxacin 500 mg oral tablet (5 sources) Quinolone Antimicrobial Start: 09-23-2024 End: 09-30-2024 take 1 tablet by mouth twice daily Ciprofloxacin Hcl 500 mg tablet Discontinued 500 mg PO TWICE A DAY 14 7 0 September 23, 2024 1:00am September 29, 2024 1:00am September 30, 2024 1:10am docusate sodium 100 mg oral capsule (7 sources) Start: 03-19-2022 take 1 capsule by mouth twice daily docusate sodium (COLACE) 100 mg capsule Take 1 capsule by mouth twice daily. 40 capsule 0 03/19/2022 Active Comment on above: Take 1 capsule by [facility] twice daily. ferrous sulfate 325 mg oral tablet (15 sources) Start: 10-25-2014 End: 12-16-2017 take 1 tablet by mouth once daily Ferrous Sulfate 325 MG tablet Discontinued 325 mg PO DAILY@0800 October 25, 2014 1:00am December 16, 2017 10:33am glipiZIDE 5 mg oral tablet (2 sources) Sulfonylurea Start: 07-12-2024 End: 07-12-2024 2.5 mg, Oral, Daily before breakfast, First dose on Sue 07/12/24 at 0600, Substituted for glimepiride (Amaryl). glucagon (rdna) 1 mg injection (4 sources) Antihypoglycemic Agent Start: 07-07-2024 End: 07-12-2024 1 mg, IntraMUSCular, PRN, low blood sugar, Blood glucose less than 70 mg/dL and patient NOT ALERT or NPO and does not have IV access., Starting on 07/07/24 at 0014, After administration, attempt intravenous access and start D5W at 100 mL/hr. Repeat blood glucose in 15 minutes x2 and notify provider. Start: 06-26-2024 End: 06-27-2024 1 mg, IntraMUSCular, PRN, lo w blood sugar, Blood glucose less than 70 mg/dL and patient NOT ALERT or NPO and does not have IV access., Starting on 06/26/24 at 1621, After administration, attempt intravenous access and start D5W at 100 mL/hr. Repeat blood glucose in 15 minutes x2 and notify provider. 150 ml glucose 50 mg/ml injection (8 sources) Start: 07-07-2024 End: 07-12-2024 12.5 g, IntraVENous, PRN, lo w blood sugar, Blood glucose less than 70 mg/dL and patient NOT ALERT or NPO., Starting on 07/07/24 at 0014, If patient does not respond within 5 minutes, repeat dose x1. Start D5W at 100 mL/hour until ordering provider can be reached. Repeat blood glucose in 15 minutes. If blood glucose is less than 70 mg/dL, repeat treatment and recheck blood glucose in 15 minutes x2. If using Glucostabilizer, dose as instructed per system. Start: 07-07-2024 End: 07-12-2024 100 mL/hr, IntraVENous, PRN, Blood sugar less than 70mg/dL, Starting on Tue07/07/24 at 0014, Start infusion following administration of dextrose 50% or glucagon. Start: 06-26-2024 End: 06-27-2024 12.5 g, IntraVENous, PRN, lo w blood sugar, Blood glucose less than 70 mg/dL and patient NOT ALERT or NPO., Starting on Tue06/26/24 at 1621, If patient does not respond within 5 minutes, repeat dose x1. Start D5W at 100 mL/hour until ordering provider can be reached. Repeat blood glucose in 15 minutes. If blood glucose is less than 70 mg/dL, repeat treatment and recheck blood glucose in 15 minutes x2. If using Glucostabilizer, dose as instructed per system. Start: 06-26-2024 End: 06-27-2024 100 mL/hr, IntraVENous, PRN, Blood sugar less than 70mg/dL, Starting on Tue06/26/24 at 1621, Start infusion following administration of dextrose 50% or glucagon. 250 ml heparin sodium, porcine 100 unt/ml injection (2 sources) Unfractionated Heparin, Anti-coagulant Start: 07-06-2024 End: 07-09-2024 5-30 Units/kg/hr 106 kg (5.3-31.8 mL/hr), IntraVENous, Continuous, Starting on Tue07/06/24 at 2315, HIGH Dose Heparin Weight Based Dosing (VTE/DVT/PE) >>>>Initial dose: 18 units/kg/hr 100.9 Hold heparin for 60 min Decrease infusion by 2 units/kg/hr - notify prescriber; Check aPTT: 6 hours after initiation and 6 hours after every dose change - every 12 hrs x 1 day after 2 consecutive therapeutic aPTT - daily after every 12 hrs x 1 day is complete. 1 ml hydrALAZINE hydrochloride 20 mg/ml injection (4 sources) Arteriolar Vasodilator Start: 07-07-2024 End: 07-12-2024 take 10 mg intravenously every four hours as needed for hypertension 10 mg, IntraVENous, Every 4 hours PRN, high blood pressure, 2nd line SBP >160, hold for HR >110, Starting on Tue07/07/24 at 2020 Start: 06-26-2024 End: 06-27-2024 10 mg, IntraVENous, Every 10 min PRN, high blood pressure, 2nd line for SBP goals 95, Starting on Tue06/26/24 at 1502 ibuprofen 200 mg oral tablet (15 sources) Nonsteroidal Anti-inflammatory Drug Start: 06-20-2015 End: 07-10-2015 take 1 tablet by mouth every four hours as needed for pain Ibuprofen 200 MG tablet Discontinued 200 mg PO EVERY 4 HOURS NEEDED as needed for Pain June 20, 2015 12:00am July 10, 2015 11:03am insulin lispro 100 unt/ml injectable solution (2 sources) Insulin Analog Start: 07-10-2024 End: 07-12-2024 0-18 Units, SubCUTAneous, 3 times daily with meals, First dose on Tue07/10/24 at 1200, High Dose Correction Algorithm Glucose: Dose: LESS than 139 No Insulin 140-199 3 Unit 200-249 6 Units 250-299 9 Units 300-349 12 Units 350-400 15 Units Above 400 18 Units Insulin Lispro (Humalog) injection 0-12 Units (2 sources) Start: 06-26-2024 End: 06-27-2024 Insulin Lispro (Humalog) injection 0-12 Units iopamidol (Isovue-370) 76 % injection 75 mL (2 sources) Start: 06-27-2024 End: 06-27-2024 take 75 mL intravenously once as needed 75 mL, IntraVENous, IMG once PRN, contrast, Starting on Tue06/27/24 at 0511, For 1 dose labetalol hydrochloride 5 mg/ml injectable solution (4 sources) beta-Adrenergic Minda Start: 07-07-2024 End: 07-12-2024 take 10 mg intravenously every four hours as needed for hypertension 10 mg, IntraVENous, Every 4 hours PRN, high blood pressure, 1st line SBP >160, hold for HR Start: 06-26-2024 End: 06-27-2024 10 mg, IntraVENous, Every 10 min PRN, high blood pressure, 1st line for SBP goals lactobacillus acidophilus [id number] unt / pectin 100 mg oral tablet (15 sources) Start: 05-11-2016 End: 12-16-2017 take 1 tablet by mouth twice daily Acidophilus-Pectin, Griggs 1 EACH tablet Discontinued 1 NMA PO TWICE A DAY 20 0 May 11, 2016 12:00am December 16, 2017 10:32am Start: 05-11-2016 End: 12-16-2017 Acidophilus-Pectin, Griggs D iscontinued 1 EACH PO TWICE A DAY May 11, 2016 12:00am December 16, 2017 10:32am levETIRAcetam 500 mg oral tablet (10 sources) Start: 06-26-2024 End: 07-12-2024 take 1 tablet by mouth twice daily levETIRAcetam (Keppra) 500 MG tablet Take 1 tablet (500 mg) by mouth 2 times daily for 12 doses. 12 tablet 06/27/2024 07/12/2024 Discontinued (Stop taking at discharge) levoFLOXacin 500 mg oral tablet (15 sources) Quinolone Antimicrobial Start: 05-11-2016 End: 12-16-2017 take 1 tablet by mouth once daily Levofloxacin 500 MG tablet Discontinued 500 mg PO DAILY May 11, 2016 12:00am December 16, 2017 10:33am lidocaine 0.04 mg/mg medicated patch (10 sources) Antiarrhythmic, Amide Local Anesthetic Start: 06-27-2024 End: 07-28-2024 apply 1 dose transdermal route once daily Lidocaine 4 % patch Place 1 patch on the skin daily. 30 patch 06/28/2024 07/12/2024 Discontinued (Stop taking at discharge) lisinopril 10 mg oral tablet (20 sources) Angiotensin Converting Enzyme Inhibitor Start: 08-10-2013 End: 06-26-2024 take 1 tablet by mouth once daily Lisinopril 10 MG tablet Discontinued 10 mg PO DAILY August 10, 2013 1:00am June 26, 2024 10:20am Comment on above: Take 10 mg by mouth once daily. Multivitamin 1 EACH tablet (5 sources) Start: 07-10-2015 End: 12-16-2017 Multivitamin 1 EACH tablet Discontinued 1 NMA PO DAILY July 10, 2015 1:00am December 16, 2017 10:33am multivitamin tablet (9 sources) take 1 tablet by mouth once daily multivitamin tablet Take 1 tablet by mouth once daily. 0 Active Comment on above: Take 1 tablet by deven th once daily. Multivitamin,Tx-Ir on-Minerals (Therems-M) 1 TABLET tablet (15 sources) Start: 10-25-2014 End: 07-10-2015 take 1 tablet by mouth once daily Multivitamin,Tx-Ir on-Minerals (Therems-M) 1 TABLET tablet Discontinued 1 TABLET PO DAILY October 25, 2014 9:18am July 10, 2015 11:03am Start: 10-25-2014 End: 07-10-2015 take 1 tablet by mouth once daily Multivitamin,Hb-Fwwd-Kwpgploy (Therems-M ) 1 TABLET tablet Discontinued 1 {tbl} PO DAILY October 25, 2014 1:00am July 10, 2015 11:03am Start: 10-25-2014 End: 07-10-2015 take 1 tablet by mouth once daily Multivitamin,Jh-Mudt-Zftweelh (Therems-M ) 1 TABLET tablet Discontinued 1 TABLET PO DAILY October 25, 2014 12:00am July 10, 2015 10:03am Start: 10-25-2014 End: 07-10-2015 take 1 tablet by mouth once daily Multivitamin,Vm-Rous-Tpgztupk (Therems-M ) 1 TABLET tablet Discontinued 1 TABLET PO DAILY October 25, 2014 1:00am July 10, 2015 11:03am mupirocin 0.02 mg/mg topical ointment (4 sources) RNA Synthetase Inhibitor Antibacterial Start: 07-06-2024 End: 07-11-2024 1 Application, Nasal, 2 times daily, First dose on Tue07/06/24 at 2315, For 5 days, Indications: MRSA Nasal Decolonization Start: 06-26-2024 End: 06-27-2024 1 Application, Nasal, 2 time s daily, First dose on Tue06/26/24 at 2100, For 5 days, Indications: MRSA Nasal Decolonization 1 ml naloxone hydrochloride 0.4 mg/ml injection (4 sources) Opioid Antagonist Start: 07-06-2024 End: 07-12-2024 0.4 mg, IntraVENous, Every 5 min PRN, opioid reversal, respiratory depression, Starting on Tue07/06/24 at 2306, +++ For RR Start: 06-26-2024 End: 06-27-2024 0.4 mg, IntraVENous, Every 5 min PRN, opioid reversal, respiratory depression, Starting on Tue06/26/24 at 1525, +++ For RR ondansetron ODT (Zofran-ODT) disintegrating tablet 4 mg (4 sources) Start: 07-06-2024 End: 07-12-2024 take 1 tablet by mouth every eight hours as needed for nausea and vomiting ondansetron ODT (Zofran-ODT) disintegrating tablet 4 mg Start: 06-26-2024 End: 06-27-2024 take 1 tablet by mouth every eight hours as needed for nausea and vomiting ondansetron ODT (Zofran-ODT) disintegrating tablet 4 mg oxyCODONE hydrochloride 5 mg oral tablet (13 sources) Opioid Agonist Start: 07-06-2024 End: 07-12-2024 take 1 tablet by mouth every four hours as needed for pain oxyCODONE (Roxicodone) immediate release tablet 5 mg Start: 06-27-2024 End: 07-23-2024 take 1 tablet by mouth every six hours as needed for pain oxyCODONE (Roxicodone) 5 MG immediate release tablet Indications: Acute pulmonary embolism without acute cor pulmonale, unspecified pulmonary embolism type (HCC) Take 1 tablet (5 mg) by mouth every 6 hours as needed for moderate pain (4-6) for up to 5 days. 20 tablet 07/12/2024 07/23/2024 Discontinued (Therapy completed) Start: 06-26-2024 End: 06-27-2024 take 1 tablet by mouth every four hours as needed for pain oxyCODONE (Roxicodone) immediate release tablet 2.5 mg perflutren protein A microsphere (Optison) 3 mL in sodium chloride (PF) 0.9 % 10 mL IV syringe (2 sources) Start: 07-07-2024 End: 07-07-2024 0-10 mL, IntraVENous, IMG once PRN, other, Suboptimal echo image, Starting on 07/07/24 at 0724, For 1 dose, CV Procedural Medications, Administer via slow IVP for suboptimal echocardiogram enhancement. May administer as divided doses to reach optimal image enhancement piperacillin 4000 mg / tazobactam 500 mg injection (2 sources) Penicillin-clas s Antibacterial, beta Lactamase Inhibitor Start: 07-10-2024 End: 07-12-2024 take 4500 mg intravenously every six hours polyethylene glycol 3350 68131 mg powder for oral solution (11 sources) Osmotic Laxative Start: 07-13-2024 End: 07-23-2024 take 17 g by mouth once daily polyethylene glycol, PEG, 3350 (Miralax) 17 g packet Take 17 g by mouth daily for 3 days. 3 packet 07/13/2024 07/23/2024 Discontinued Start: 07-09-2024 End: 07-12-2024 take 1 dose by mouth every twenty-four hours for constipation 17 g, Oral, Daily, First dose (after last modification) on 07/09/24 at 0900, 1st line for treatment of constipation - give scheduled if no bowel movement in past 24 hours. Start: 07-08-2024 End: 07-08-2024 17 g, Oral, Once, On 07/08/24 at 1630, For 1 dose Start: 06-26-2024 End: 06-27-2024 take 17 g by mouth every twenty-four hours as needed for constipation 17 g, Oral, Daily PRN, constipation, Starting on Tue06/26/24 at 1502, 1st line for treatment of constipation - give scheduled if no bowel movement in past 24 hours. 1000 ml sodium chloride 9 mg/ml injection (12 sources) Start: 07-06-2024 End: 07-08-2024 take 50 mL intravenously every hour 50 mL/hr, IntraVENous, Continuous, Starting on Tue07/06/24 at 2315 Start: 07-06-2024 End: 07-12-2024 take 100 mL intravenously every hour as needed, then take 20 mL intravenously every hour as needed 5-250 mL/hr, IntraVENous, PRN, if patient receiving piggyback infusions and maintenance fluids are not ordered OR KVO fluids to protect IV site / prevent frequent line interruptions / long duration, Starting on Tue07/06/24 at 2257, For piggyback infusion, administer at same rate as piggyback for a total of 25 mL. Enter 25 mL into dose field and piggyback rate into rate field of order. If piggyback is infusing at a rate less than 100 mL/hr, enter 25 mL into dose field and 100 mL/hr into rate field of order. For KVO fluids, enter rate of 20 mL/hr or less into rate field of order. Start: 06-26-2024 End: 06-27-2024 take 75 mL intravenously every hour 75 mL/hr, IntraVENous, Continuous, Starting on Tue06/26/24 at 1515 Start: 06-26-2024 End: 06-27-2024 take 30 mL intravenously every six hours 30 mL, IntraVENous, Every 6 hours, First dose on Tue06/26/24 at 1515 Start: 06-26-2024 End: 06-27-2024 30 mL, IntraVENous, PRN, ash e care, Starting on Tue06/26/24 at 1457 Start: 06-26-2024 End: 06-27-2024 take 30 mL intravenously once as needed 30 mL, IntraVENous, PRN, line care, Starting on Tue06/26/24 at 1457, After every IV line use sulfamethoxazole 800 mg / trimethoprim 160 mg oral tablet (15 sources) Dihydrofolate Reductase Inhibitor Antibacterial, Sulfonamide Antimicrobial Start: 07-10-2015 End: 07-21-2015 Sulfamethoxazole-Trimethopri m 1 TABLET tablet Discontinued 2 {tbl} PO TWICE A DAY 40 0 July 10, 2015 1:00am July 21, 2015 9:52am Start: 07-10-2015 End: 07-21-2015 take 2 tablets by mouth twice daily Sulfamethoxazole-Trimethoprim Discontinu ed 2 TABLET PO TWICE A DAY 40 July 10, 2015 1:00am July 21, 2015 9:52am triamcinolone acetonide 40 mg/ml injectable suspension (1 source) Corticosteroid Start: 02-28-2018 End: 02-28-2018 Kenalog (triamcinolone acetonide) 10 mg/mL suspension for injection Discontinued 2 MG INTRAARTIC ONCE 0.2 February 28, 2018 8:30am February 28, 2018 9:19am Vancomycin (2 sources) Glycopeptide Antibacterial Start: 07-10-2024 End: 07-10-2024 take 1250 mg intravenously every twelve hours Problems Active Problems Problem Classification Problem Date Documented Date Episodic/Chronic Acute cerebrovascular disease (20 sources) Intracranial hemorrhage; Translations: [Nontraumatic intracranial hemorrhage, unspecified] Onset: 06-26-2024 06-27-2024 Chronic Chronic ulcer of skin (15 sources) Ulcer of lower extremity; Translations: [Non-pressure chronic ulcer of unspecified part of left lower leg with fat layer exposed] 05-12-2016 Chronic Comment on above: L97.922nonhealing di abetic ulcer left anterior distal thigh Coma; stupor; and brain damage (15 sources) Loss of consciousness; Translations: [Unspecified coma] 12-16-2017 Episodic Complication of device; implant or graft (15 sources) Skin graft failure; Translations: [Skin graft (allograft) (autograft) failure] 08-19-2016 Episodic Comment on above: T86.821early comprom ise of skin graft left anterior distal thigh Deficiency and other anemia (1 source) Anemia, unspecified; Translations: [Anemia, unspecified] Onset: 05-10-2025 Episodic Diabetes mellitus with complications (20 sources) Type 2 diabetes mellitus; Translations: [Uncontrolled type 2 diabetes mellitus with complication] 08-12-2016 Chronic Comment on above: E11.622nonhealing di abetic ulcer left anterior distal thigh Diabetes mellitus without complication (14 sources) Diabetes mellitus; Translations: [Type 2 diabetes mellitus without complications] Onset: 03-05-2022 03-05-2022 Chronic Disorders of lipid metabolism (12 sources) Hyperlipidemia; Translations: [Hyperlipidemia, unspecified] 03-05-2022 Chronic Essential hypertension (20 sources) Hypertensive disorder; Translations: [Essential (primary) hypertension] 03-05-2022 Chronic Intracranial injury (10 sources) Hemorrhage into subarachnoid space of neuraxis; Translations: [Subarachnoid hemorrhage following injury] 07-04-2024 Episodic Nutritional deficiencies (1 source) Vitamin D deficiency, unspecified; Translations: [Vitamin D deficiency, unspecified] Onset: 11-16-2024 Chronic Occlusion or stenosis of precerebral arteries (1 source) Occlusion and stenosis of bilateral carotid arteries; Translations: [Occlusion and stenosis of bilateral carotid arteries] Onset: 05-31-2025 Chronic Open wounds of extremities (20 sources) Open wound of thigh with complication; Translations: [Unspecified open wound, left thigh, initial encounter] 08-12-2016 Episodic Comment on above: nonhealing open logan virgen wound left anterior distal thigh s/p incision and drainage Open wounds of head; neck; and trunk (5 sources) Scalp laceration; Translations: [Laceration without foreign body of scalp, initial encounter] 07-04-2024 Episodic Osteoarthritis (17 sources) Osteoarthritis of joint of left shoulder region; Translations: [Primary osteoarthritis, left shoulder] Onset: 03-05-2022 Chronic Osteoporosis (8 sources) Osteoporosis; Translations: [Age-related osteoporosis without current pathological fracture] Onset: 06-26-2024 06-27-2024 Chronic Other acquired deformities (4 sources) Kyphosis deformity of spine; Translations: [Unspecified kyphosis, site unspecified] 06-14-2025 Chronic Other acquired deformities (4 sources) Degenerative disorder of musculoskeletal system; Translations: [Other secondary scoliosis, site unspecified] 06-14-2025 Chronic Other acquired deformities (4 sources) Unequal limb length (acquired), unspecified site; Translations: [Inequality of length of lower extremity] 06-14-2025 Episodic Other bone disease and musculoskeletal deformities (15 sources) Clavicle pain; Translations: [Other specified disorders of bone, shoulder] 12-16-2017 Episodic Other bone disease and musculoskeletal deformities (4 sources) Osteopenia; Translations: [Other specified disorders of bone density and structure, unspecified site] 06-14-2025 Episodic Other circulatory disease (3 sources) History of subdural hematoma; Translations: [Personal history of other diseases of the circulatory system] 07-14-2024 Episodic Other circulatory disease (2 sources) H/O: [employer] disorder; Translations: [Personal history of other diseases of the circulatory system] 07-14-2024 Episodic Other connective tissue disease (12 sources) History of total knee arthroplasty; Translations: [Presence of left artificial knee joint] 05-12-2016 Chronic Comment on above: Z96.652 Other connective tissue disease (2 sources) History of reverse prosthetic total arthroplasty of left shoulder; Translations: [Presence of left artificial shoulder joint] Chronic Other connective tissue disease (3 sources) History of left total knee replacement; Translations: [Presence of left artificial knee joint] 05-12-2016 Chronic Comment on above: Z96.652 Other connective tissue disease (2 sources) Neurogenic claudication; Translations: [Other symptoms and signs involving the nervous system] 06-14-2025 Episodic Other connective tissue disease (1 source) Other symptoms and signs involving the nervous system; Translations: [Other symptoms and signs involving the nervous system] Onset: 06-14-2025 Episodic Other fractures (1 source) Multiple fractures of ribs, right side, initial encounter for closed fracture; Translations: [Multiple fractures of ribs, right side, initial encounter for closed fracture] Onset: 12-16-2017 Episodic Other fractures (15 sources) Fracture of multiple ribs ; Translations: [Multiple fractures of ribs, unspecified side, initial encounter for closed fracture] 12-16-2017 Episodic Other injuries and conditions due to external causes (1 source) Traumatic subcutaneous emphysema, initial encounter; Translations: [Traumatic subcutaneous emphysema, initial encounter] Onset: 12-16-2017 Episodic Other lower respiratory disease (5 sources) Hypoxia; Translations: [Hypoxemia] 07-14-2024 Episodic Other nervous system disorders (1 source) Other chronic pain; Translations: [Chronic left shoulder pain] Onset: 03-05-2022 Chronic Other non-traumatic joint disorders (2 sources) Chronic pain of left upper limb; Translations: [Pain in left shoulder] Episodic Other non-traumatic joint disorders (1 source) Shoulder pain; Translations: [Pain in left shoulder] Episodic Other nutritional; endocrine; and metabolic disorders (13 sources) Obese class II; Translations: [Obesity, unspecified] Onset: 12-18-2017 12-18-2017 Chronic Other nutritional; endocrine; and metabolic disorders (4 sources) Body mass index 30+ - obesity; Translations: [Obesity, unspecified] 06-14-2025 Chronic Pulmonary heart disease (20 sources) Acute pulmonary embolism; Translations: [Other pulmonary embolism without acute cor pulmonale] Onset: 07-06-2024 07-06-2024 Episodic Residual codes; unclassified (15 sources) Edema of left lower limb; Translations: [Localized edema] 08-12-2016 Episodic Screening and history of mental health and substance abuse codes (15 sources) Ex-smoker; Translations: [Personal history of nicotine dependence] 05-12-2016 Episodic Comment on above: Z87.891 Skin and subcutaneous tissue infections (15 sources) Abscess of lower limb; Translations: [Cutaneous abscess of limb, unspecified] 07-22-2015 Episodic Comment on above: Subcutaneous abscess left thigh Spondylosis; intervertebral disc disorders; other back problems (18 sources) Lumbar spondylosis with myelopathy; Translations: [Other spondylosis with myelopathy, lumbar region] 09-08-2022 Chronic Spondylosis; intervertebral disc disorders; other back problems (20 sources) Spinal stenosis of lumbar region; Translations: [Spinal stenosis, lumbar region without neurogenic claudication] Onset: 06-14-2025 09-08-2022 Episodic Superficial injury; contusion (20 sources) Hematoma of left thigh; Translations: [Contusion of left thigh, initial encounter] 08-12-2016 Episodic Comment on above: traumatic hematoma l eft anterior distal thigh Syncope (10 sources) Syncope; Translations: [Syncope and collapse] 07-14-2024 Episodic Unclassified (1 source) Unknown / UNK(Unknown) Onset: 12-18-2017 Unclassified (1 source) Injury, unspecified, initial encounter; Translations: [Injury, unspecified, initial encounter] Onset: 12-18-2017 Unclassified (1 source) S/P R RTSA Onset: 06-25-2022 Unclassified (2 sources) M54.16 - Radiculopathy, lumbar region Past or Other Problems Problem Classification Problem Date Documented Da te Episodic/Chronic Fracture of upper limb (20 sources) Closed fracture of acromial end of clavicle; Translations: [Displaced fracture of lateral end of right clavicle, initial encounter for closed fracture] Onset: 06-26-2024 06-27-2024 Episodic Genitourinary symptoms and ill-defined conditions (1 source) Dysuria; Translations: [Dysuria] Onset: 10-11-2024 Episodic Other fractures (17 sources) Closed fracture of multiple ribs; Translations: [Multiple fractures of ribs, right side, subsequent encounter for fracture with routine healing] Onset: 06-27-2024 06-27-2024 Episodic Other fractures (2 sources) Multiple fractures of ribs, right side, subsequent encounter for fracture with routine healing; Translations: [Multiple fractures of ribs, right side, subsequent encounter for fracture with routine healing] Onset: 06-26-2024 Episodic Other non-traumatic joint disorders (1 source) Pain in left shoulder; Translations: [Chronic left shoulder pain] Onset: 03-05-2022 Episodic Other screening for suspected conditions (not mental disorders or infectious disease) (1 source) Elevated prostate specific antigen [PSA]; Translations: [Elevated prostate specific antigen [PSA]] Onset: 08-14-2024 Episodic Pleurisy; pneumothorax; pulmonary collapse (2 sources) Interstitial emphysema; 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] Onset: 12-16-2017 12-18-2017 Episodic Unclassified (1 source) Injury, unspecified, initial encounter Onset: 12-16-2017 Unclassified (14 sources) HX OF HEMATOMA REMOVAL 03-24-2022 Comment on above: 05/21/2016 Urinary tract infections (7 sources) Acute cystitis; Translations: [Acute cystitis without hematuria] Onset: 10-01-2024 09-23-2024 Episodic Results Test Name Value Interpretation Reference Range Facility Orthopedic Visit Reporton Orthopedic Visit Report [facility] [address] [place] [address] OFFICE VISIT Date of Service: 07/04/25 MR#: [id number] Acct: [id number] Name: AVERY VASQUEZ Rep #: [id number] : 1950 Provider: Dr. Kostas Borja MD Age/Sex: 75/M [place] [facility] [place] Status: Signed Intake Vital Signs 06/14/25 08:24 07/04/25 10:25 Height 5 ft 8 in 5 ft 8 in Weight: 225 lb BMI 34.2 Intake Visit Reasons: LUMBAR SPINE Chief Complaint: Lumbar spine MRI review Accompanied by: Self Is patient in pain?: Yes Pain scale (1-10): 1 Allergies sulfamethoxazole (From Bactrim) Allergy (Severe, Verified 07/04/25 10:29) Rash trimethoprim (From Bactrim) Allergy (Severe, Verified 07/04/25 10:29) Rash hydrocodone bitartrate (From Vicodin) Adverse Reaction (Verified 07/04/25 10:29) Nausea tramadol Adverse Reaction (Verified 07/04/25 10:29) Other Medications ???Medication ???Instructions ???Recorded ???Confirmed ???Type atorvastatin 10 mg tablet 10 mg PO DAILY 08/10/13 07/04/25 H istory metformin 500 mg tablet 1,000 mg PO BIDCM 08/10/13 5 History aspirin 81 mg tablet,delayed 81 mg PO DAILY 12/16/17 07/04/25 H istory release (Adult Low Dose Aspirin) calcium 500 mg (as 1 tab PO DAILY 02/10/22 07/04/25 H istory carbonate)-vitamin D3 3.125 mcg (125 unit) tablet multivitamin 1 tab PO DAILY 02/10/22 07/04/25 H istory dulaglutide 0.75 mg/0.5 mL 0.75 mg subcut QWEEK 06/26/2406/07 History subcutaneous pen injector (Trulicity) glimepiride 1 mg tablet 1 mg PO DAILY 06/26/24 07/04/25 Hi story tamsulosin 0.4 mg capsule 0.4 mg PO DAILY 06/26/24 07/04/25 History valsartan 160 mg tablet 160 mg PO BID 06/26/24 07/04/25 Hi story dapagliflozin propanediol 10 mg 10 mg PO DAILY 07/06/24 07/04/25 H istory tablet (Farxiga) Have you fallen in the past year?: Yes PFSH Medical History Kyphosis Spinal stenosis of lumbar region Lumbar degenerative disc disease Degenerative scoliosis Leg length discrepancy Neurogenic claudication Lumbar radiculopathy Obesity (BMI 30-39.9) Right clavicle fracture Wears dentures Wears glasses Alcohol use Diabetes Arthritis High cholesterol Back pain Syncope Dietary restriction Chronic cough Leg cramps History of echocardiogram History of irregular heartbeat History of trigger finger HX OF HEMATOMA REMOVAL Carpal tunnel syndrome Neck pain Back pain Chest pain Diabetes Shoulder pain Loss of consciousness Arthritis Hypertension Surgical History Hx of shoulder replacement Hx of colonoscopy History of skin graft Hx of surgical amputation of finger History of knee replacement Family History Other Cancer Heart disease Social History Smoking Status: Never smoker alcohol intake: current alcohol intake frequency: a few times a month Alcohol type: wine HPI LUMBAR SPINE Details: This documentation accurately reflects the service provided and the decisions made by me, Dr. Kostas Borja MD 07/04/25 1025. Part of today???s visit was documented by Stephanie Thurston MA and Sharon Ashby RN, acting as scribe. AVERY VASQUEZ is a 75 year old M here today for lumbar spine MRI review. Patient states that his pain is a 1 today. He would like to go over the MRI results to discuss what the next step would be. Teddy wood hasn't had any injections in his lower back. He has started physical therapy at [facility]. Patient has done 5 sessions. He thinks the that the physical therapy is helping a little bit. He reports ongoing weakness in his bilateral legs. The right leg feels weaker than the left. He reports tripping easily on the left side. His alst A1c on 05-02-25 was 7.1. He can walk a quarter of a mile before he has to stop. He does lean on a shopping cart at the store. The patient is a 75-year-old male presenting with weakness in the feet and low back pain. The weakness in the feet has been present for several years, with no significant change noted despite undergoing physical therapy sessions. The patient reports tripping more frequently, particularly on the left side, and experiences pain that is manageable with ibuprofen. The patient has a history of diabetes mellitus, with a recent A1c of 7.1 as of May 02. The diabetes is noted to potentially contribute to the weakness in the feet due to its effect on nerve function. The MRI from June 20 revealed lumbar spinal stenosis with narrowing of the last four discs from L2 to S1, causing nerve compression. The patient also has scoliosis, which is con (more content not included)... Normal [facility] Spine Lumbar (Routine)on Spine Lumbar (Routine) [facility] Imaging Services [address] [place], [place] [id number] Spine Lumbar (Routine) MR#: [id number] Acct: [id number] Name: AVERY VASQUEZ Rep #: [id number] : 1950 M 75 From: [facility] PCP: Dr. Aidan Argueta MD Status: REG CLI Study: Spine Lumbar (Routine) Date of Exam: 06/20/25 Exam# [id number] Ordering Dr: Kostas Borja MD PROCEDURE: SPINE LUMBAR (ROUTINE) 06/20/2025 REASON FOR EXAM: RADICULOPATHY TECHNIQUE: Procedure Code: MRISPL Modality: MR Procedure: SPINE LUMBAR (ROUTINE) COMPARISON: Lumbar spine series of 06/14/2025. FINDINGS: Compared with the prior lumbar MRI 09/16/2022, progressive worsening degenerative disc disease of the mid to lower lumbar spine is noted Vertebrae: Again seen is lumbar dextroscoliosis, centered about the L3-L4 level. Vertebral bodies appear intact. Endplate reactive changes most prominent about the L4-L5 level As on the comparison plain film study, marked degenerative disc disease throughout the lumbar spine is seen, from L2 through S1 with marked disc narrowing, greatest at L3-L4, L4-L5, and L5-S1 levels. Alignment: No evidence of spondylolysis or spondylolisthesis. Conus Medullaris: Unremarkable in appearance, terminating at the T12-L1 level. L1-2: Mild posterior facet and ligamentum flavum hypertrophy is seen. Very mild disc bulge is noted. No definite neural foraminal narrowing is seen. No significant degree of spinal canal stenosis is noted. L2-3: [id number] left and moderate right posterior facet and ligamentum flavum hypertrophy is seen. Mild vertebral body osteophytosis and a mild diffuse disc bulge are noted. Moderately severe spinal canal narrowing is seen, along with probably moderate bilateral neural foraminal narrowing. L3-4: Mild posterior facet and especially bilateral ligamentum flavum hypertrophy is noted. A mild diffuse disc bulge is noted. Moderate to moderately severe spinal canal narrowing is seen. Bkfb-bq-nysxhoak right and at least moderate left neural foraminal narrowing also noted. L4-5: Mild posterior facet and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 on above: Result Comment: mL/m in/1.73m2 CKD-EPI Creatinine Equation (2020) Performed By: #### M 100.2200 #### [facility] [address] [place], [address] Globulin (S) [Mass/Vol] 3.4 g/dL Normal 2.2-4.2 [facility] Comment on above: Performed By: #### M 100.2200 #### [facility] [address] [place], [address] Glucose [Mass/Vol] 116 mg/dL High 70-99 [facility] Comment on above: Performed By: #### M 100.2200 #### [facility] [address] [place], [address] Potassium [Moles/Vol] 4.4 mmol/L Normal 3.3-5.1 [facility] Comment on above: Performed By: #### M 100.2200 #### [facility] [address] [place], [place], [id number] Sodium [Moles/Vol] 136 mmol/L Normal 133-145 [facility] Comment on above: Performed By: #### M 100.2200 #### [facility] [address] [place], [place], [id number] (395) T PROT 7.6 g/dL Normal 5.9-8.4 [facility] Comment on above: Performed By: #### M 100.2200 #### [facility] [address] [place], [place], [id number] Urea nitrogen [Mass/Vol] 20 mg/dL High 4-19 [facility] Comment on above: Performed By: #### M 100.2200 #### [facility] [address] [place], [place], [id number] Eosinophil percentageOrdered By: Aidan Argueta on 05-02-2025 Eosinophils/100 WBC (Bld) 4.1 % 0-5 [facility] Erythrocyte distribution wid th ratioOrdered By: Aidan Argueta on 05-02-2025 Erythrocyte distribution width (RBC) [Ratio] 14.6 % 11.6-14.6 [facility] Erythrocyte distribution wid th standard deviationOrdered By: Aidan Argueta on 05-02-2025 Erythrocyte distribution width (RBC) [Ratio] 47.8 fl High 35.1-43.9 [facility] Ferritinon 05-02-2025 Ferritin [Mass/Vol] 24 ng/mL Low 37-417 [facility] Comment on above: Performed By: #### M 100.2200 #### [facility] [address] [place], [place], [id number] Glomerular filtration rate ( GFR) estimation/1.73 sq m using serum, plasma, or whole bOrdered By: Aidan Argueta on 05-02-2025 GFR/1.73 sq M.predicted among non-blacks MDRD (S/P/Bld) [Vol rate/Area] 90 mL/min/{1.73_m2} >60 [facility] Comment on above: mL/min/1.73m2 CKD-EP I Creatinine Equation (2020) Hematocrit Auto (Bld) [Volum e fraction]Ordered By: Aidan Argueta on 05-02-2025 Hematocrit (Bld) [Volume fraction] 38.3 % Low 40-54 [facility] Hemoglobin A1con 05-02-2025 HbA1c (Bld) [Mass fraction] 7.1 % High <=5.6 [facility] Comment on above: Result Comment: Norm al < 5.7 % Prediabetic 5.7 - 6.4 % Diabetic >or= 6.5 % Please note range changes. Performed By: #### M 100.2200 #### [facility] [address] [place], [address] Hemoglobin A1c percentageOrd ered By: Aidan Argueta on 05-02-2025 HbA1c (Bld) [Mass fraction] 7.1 % High <5.7 [facility] Comment on above: Normal < 5.7 % Predi abetic 5.7 - 6.4 % Diabetic >or= 6.5 % Please note range changes. Hemoglobin measurementOrdere d By: Aidan Argueta on 05-02-2025 Hemoglobin (Bld) [Mass/Vol] 12.5 g/dL Low 13.0-16.5 [facility] Immature granulocytes/100 WB C Auto (Bld)Ordered By: Aidan Argueta on 05-02-2025 Immature granulocytes/100 WBC (Bld) 0.400 % 0.0-0.9 [facility] Comment on above: IG% - Immature Granu locytes (promyelocytes, myelocytes and metamyelocytes) > 1% indicates that a LEFT SHIFT is Present. Iron measurement (mass/mass) Ordered By: Aidan Argueta on 05-02-2025 Iron (Unsp spec) [Mass/Mass] 94 ug/dL 65-175 [facility] Iron+Iron Binding Capacityon 05-02-2025 Iron [Mass/Vol] 94 ug/dL Normal 65-175 [facility] Comment on above: Performed By: #### M 100.2200 #### [facility] [address] [place], [address] IRON SATURATION 24.0 Normal 9-55 [facility] Comment on above: Performed By: #### M 100.2200 #### [facility] [address] [place], [address] TIBC 396 ug/dL Normal 250-450 [facility] Comment on above: Performed By: #### M 100.2200 #### [facility] [address] [place], [address] UIBC 302 ug/dL Normal 228-428 [facility] Comment on above: Performed By: #### M 100.2200 #### [facility] [address] [place], [address] LDL calc ser/plasOrdered By: Aidan Argueta on 05-02-2025 Cholesterol in LDL [Mass/Vol] 74 mg/dL [facility] Comment on above: Wbuumdlpye=802-251 m g/dL & Higher Huul=302 mg/dL or greaterFriedwald Equation for LDL-C Laboratory - Chemistry and C hemistry - challengeOrdered By: Aidan Argueta on 05-02-2025 AST [Catalytic activity/Vol] 21 U/L <38 [facility] Lipid Profileon 05-02-2025 CHOL:HDL 2.68 Normal [facility] Comment on above: Performed By: #### M 100.2200 #### [facility] [address] [place], [address] Cholesterol [Mass/Vol] 141 mg/dL Normal <=200 [facility] Comment on above: Result Comment: Chol esterol level, Desirable <200 mg/dL Borderline high cholesterol 200-239 mg/dL High cholesterol >=240 mg/dL Recommendations of the NCEP Adult Treatment Panel for the following risk-cutoff thresholds for the [place] population. Performed By: #### M 100.2200 #### [facility] [address] [place], [address] Cholesterol in HDL [Mass/Vol] 53 mg/dL Normal [facility] Comment on above: Result Comment: Davida onal Cholesterol Education Program (NCEP) guidelines: <40 mg/dL: Low HDL-cholesterol (major risk factor for CHD) >= 60 mg/dL: High HDL-cholesterol (negative risk factor for CHD) HDL-cholesterol is affected by a number of factors, e.g. smoking, exercise, hormones, sex and age. Performed By: #### M 100.2200 #### [facility] [address] [place], [address] Cholesterol in LDL [Mass/Vol] 74 mg/dL Normal [facility] Comment on above: Result Comment: Bord lfrtte=115-344 mg/dL Higher Muvm=600 mg/dL or greater Friedwald Equation for LDL-C Performed By: #### M 100.2200 #### [facility] [address] [place], [address] Cholesterol in VLDL [Mass/Vol] 14 mg/dL Normal 5-40 [facility] Comment on above: Performed By: #### M 100.2200 #### [facility] [address] [place], [address] Triglyceride [Mass/Vol] 69 mg/dL Normal [facility] Comment on above: Result Comment: The drugs N-Acetylcysteine and Metamizole may falsely depress this assay. Normal range: <150 mg/dL Borderline High: 150-199 mg/dL High: 200-499 mg/dL Very High: >500 mg/dL Performed By: #### M 100.2200 #### [facility] [address] [place], [address] MCV (mean corpuscular volume ) determinationOrdered By: Aidan Argueta on 05-02-2025 MCV (RBC) [Entitic vol] 89.5 fL 80-94 [facility] Mean corpuscular hemoglobin (MCH) determinationOrdered By: Aidan Argueta on 05-02-2025 MCH (RBC) [Entitic mass] 29.2 pg 27.0-32.0 [facility] Mean corpuscular hemoglobin concentration (MCHC) determinationOrdered By: Aidan Argueta on 05-02-2025 MCHC (RBC) [Mass/Vol] 32.6 g/dL 32-36 [facility] Mean platelet volume determi nationOrdered By: Aidan Argueta on 05-02-2025 Platelet mean volume (Bld) [Entitic vol] 10.0 fL 6.2-12.0 [facility] Microalb:Creat Ratio,Random URon 05-02-2025 Creatinine [Mass/Vol] 44.30 mg/dL Normal 39.00- 259. 00 [facility] Comment on above: Performed By: #### M 100.2200 #### [facility] [address] [place], [address] MALB:CREAT UNABLE TO CALCULATE Normal <30 mg/g CRE [facility] Comment on above: Performed By: #### M 100.2200 #### [facility] [address] [place], [place], [address] MICROALBUMIN,UR < 12.0 Normal <20 mg/L [facility] Comment on above: Performed By: #### M 100.2200 #### [facility] [address] [place], [place], [address] Microalbumin/creat ratio urO rdered By: Aidan Argueta on 05-02-2025 Urine microalbumin/creatinine ratio measurement UNABLE TO CALCULATE mg/g CRE <30 [facility] Monocyte percentageOrdered B y: Aidan Argueta on 05-02-2025 Monocytes/100 WBC (Bld) 8.2 % 0-10 [facility] Neutrophil percentageOrdered By: Aidan Argueta on 05-02-2025 Neutrophils/100 WBC (Bld) 67.9 % 47-70 [facility] No Panel InformationOrdered By: Aidan Argueta on 05-02-2025 Unsaturated Iron Binding Capacity 302 ug/dL 228-428 [facility] Nucleated red blood cell per centageOrdered By: Aidan Argueta on 05-02-2025 Nucleated RBC/100 WBC (Bld) [Ratio] 0 % 0-5 [facility] Platelet countOrdered By: Johanny Argueta on 05-02-2025 Platelets (Bld) [#/Vol] 279 10*3/uL 150-450 [facility] Potassium measurement (mass/ volume)Ordered By: Aidan Argueta on 05-02-2025 Potassium (Unsp spec) [Mass/Vol] 4.4 mmol/L 3.3-5.1 [facility] RBC Auto (Bld) [#/Vol]Ordere d By: Aidan Argueta on 05-02-2025 RBC (Bld) [#/Vol] 4.28 10*6/uL Low 4.6-6.2 [facility] Random urine creatinine winsome urement (mass/volume)Ordered By: Aidan Argueta on 05-02-2025 Creatinine Unsp time (U) [Mass/Vol] 44.30 mg/dL 39.00-259. 00 [facility] Screening total cholesterol/ high density lipoprotein (HDL) cholesterol ratioOrdered By: Aidan Argueta on 05-02-2025 Cholesterol.total/Rosario sterol in HDL [Mass ratio] 2.68 {ratio} [facility] Serum creatinine measurement (mass/volume)Ordered By: Aidan Argueta on 05-02-2025 Creatinine [Mass/Vol] 0.88 mg/dL 0.70-1.20 [facility] Serum globulin measurementOr dered By: Aidan Argueta on 05-02-2025 Globulin (S) [Mass/Vol] 3.4 g/dL 2.2-4.2 [facility] Serum glucose measurement (m ass/volume)Ordered By: Aidan Argueta on 05-02-2025 Glucose [Mass/Vol] 116 mg/dL High 70-99 [facility] Serum or plasma alanine mckeon otransferase (ALT) measurementOrdered By: Aidan Argueta on 05-02-2025 ALT [Catalytic activity/Vol] 24 U/L <47 [facility] Serum or plasma albumin winsome urement (mass/volume)Ordered By: Aidan Argueta on 05-02-2025 Albumin [Mass/Vol] 4.2 g/dL 3.4-4.8 [facility] Serum or plasma albumin/glob ulin mass ratioOrdered By: Aidan Argueta on 05-02-2025 Albumin/Globulin [Mass ratio] 1.2 {ratio} 0.9-2.4 [facility] Serum or plasma alkaline corinne sphatase measurementOrdered By: Aidan Argueta on 05-02-2025 ALP [Catalytic activity/Vol] 109 U/L 40-129 [facility] Serum or plasma calcium winsome urement (mass/volume)Ordered By: Aidan Argueta on 05-02-2025 Calcium [Mass/Vol] 10.3 mg/dL 7.6-11.0 [facility] Serum or plasma cholesterol in HDL measurement (mass/volume)Ordered By: Aidan Argueta on 05-02-2025 Cholesterol in HDL [Mass/Vol] 53 mg/dL >40 [facility] Comment on above: National Cholesterol Education Program (NCEP) guidelines:<40 mg/dL: Low HDL-cholesterol (major risk factor for CHD)>= 60 mg/dL: High HDL-cholesterol (negative risk factor for CHD)HDL-cholesterol is affected by a number of factors, e.g. smoking, exercise, hormones, sex and age. Serum or plasma cholesterol measurement (mass/volume)Ordered By: Aidan Argueta on 05-02-2025 Cholesterol [Mass/Vol] 141 mg/dL <201 [facility] Comment on above: Cholesterol level, D esirable <200 mg/dLBorderline high cholesterol 200-239 mg/dLHigh cholesterol >=240 mg/dLRecommendations of the NCEP Adult Treatment Panel for the following risk-cutoff thresholds for the [place] population. Serum or plasma ferritin jose surement (mass/volume)Ordered By: Aidan Argueta on 05-02-2025 Ferritin [Mass/Vol] 24 ng/mL Low 37-417 [facility] Serum or plasma iron saturat ion measurement (mass fraction)Ordered By: Aidna Argueta on 05-02-2025 Iron saturation [Mass fraction] 24.0 % 9-55 [facility] Serum or plasma urea nitroge n measurement (mass/volume)Ordered By: Aidan Argueta on 05-02-2025 Urea nitrogen [Mass/Vol] 20 mg/dL High 4-19 [facility] Sodium levelOrdered By: Aidan Argueta on 05-02-2025 Sodium [Moles/Vol] 136 mmol/L 133-145 [facility] Total proteinOrdered By: Todd Argueta on 05-02-2025 Protein [Mass/Vol] 7.6 g/dL 5.9-8.4 [facility] Triglycerides measurementOrd ered By: Aidan Argueta on 05-02-2025 Triglyceride [Mass/Vol] 69 mg/dL <199 [facility] Comment on above: The drugs N-Acetylcy steine and Metamizole may falsely depress this assay. Normal range: <150 mg/dLBorderline High: 150-199 mg/dLHigh: 200-499 mg/dLVery High: >500 mg/dL Urine albumin measurement wi detection limit of 20 mg/L or less (mass/volume)Ordered By: Aidan Argueta on 05-02-2025 Albumin DL <= 20 mg/L (U) [Mass/Vol] < 12.0 mg/L <20 mg/L [facility] Vitamin D,25 Hydroxyon 05-02 Vitamin D 25-OH 40.7 ng/mL Normal 30-100 [facility] Comment on above: Result Comment: Kena min D Status Deficiency: <20 ng/mL (50nmol/L) Insufficiency: 20-30 ng/mL (50-75 nmol/L) Sufficiency: 30-100 ng/mL (75-250 nmol/L) Toxicity: >100 ng/mL (>250 nmol/L) AMENDED REPORT 05/02/25 1211 Vitamin D 25-OH previously reported as: 40.1 ng/mL Vitamin D Status Deficiency: <20 ng/mL (50nmol/L) Insufficiency: 20-30 ng/mL (50-75 nmol/L) Sufficiency: 30-100 ng/mL (75-250 nmol/L) Toxicity: >100 ng/mL (>250 nmol/L) Performed By: #### M 100.2200 #### [facility] [address] [place], [address] White blood cell (WBC) count Ordered By: Aidan Argueta on 05-02-2025 WBC (Bld) [#/Vol] 7.1 10*3/uL 4.4-11.0 [facility] Absolute neutrophil countOrd ered By: Aidan Argueta on 11-05-2024 Neutrophils (Bld) [#/Vol] 5.5 10*3/uL 2.0-7.7 [facility] Albumin DL <= 20 mg/L (U) [M ass/Vol]Ordered By: Aidan Argueta on 11-05-2024 Urine Random Microalbumin < 12.0 mg/L NO RANGE EST. [facility] BUN/creatinine ratioOrdered By: Aidan Argueta on 11-05-2024 Urea nitrogen/Creatinine [Mass ratio] 23.3 mg/mg High 10-20 [facility] Basophil percentageOrdered B y: Aidan Argueta on 11-05-2024 Basophils/100 WBC (Bld) 0.8 % 0-1 [facility] Bilirubin Test strip Ql (U)O rdered By: Aidan Argueta on 11-05-2024 Bilirubin Ql (U) Negative Negative [facility] Bilirubin, totalOrdered By: Aidan Argueta on 11-05-2024 Bilirubin [Mass/Vol] 0.22 mg/dL 0.00-1.30 [facility] CBC W/Diff, Automatedon Absolute Lymph 1.35 X10 3/uL Normal 0.83-4.51 [facility] Comment on above: Performed By: #### L 506.1001, L501.9985, L100.0100, L500.4100, L500.4050, L400.0001, L502.0250 #### [facility] [address] [place], [address] Absolute Neut 5.5 X10 3/uL Normal 2.0-7.7 [facility] Comment on above: Performed By: #### L 506.1001, L501.9985, L100.0100, L500.4100, L500.4050, L400.0001, L502.0250 #### [facility] [address] [place], [address] Basophils/100 WBC (Bld) 0.8 % Normal 0-1 [facility] Comment on above: Performed By: #### L 506.1001, L501.9985, L100.0100, L500.4100, L500.4050, L400.0001, L502.0250 #### [facility] [address] [place], [address] Eosinophils/100 WBC (Bld) 3.6 % Normal 0-5 [facility] Comment on above: Performed By: #### L 506.1001, L501.9985, L100.0100, L500.4100, L500.4050, L400.0001, L502.0250 #### [facility] [address] [facility] [place], [address] Erythrocyte distribution width (RBC) [Ratio] 16.3 % High 11.6-14.6 [facility] Comment on above: Performed By: #### L 506.1001, L501.9985, L100.0100, L500.4100, L500.4050, L400.0001, L502.0250 #### [facility] [address] [place], [address] Hematocrit (Bld) [Volume fraction] 41.5 % Normal 40-54 [facility] Comment on above: Performed By: #### L 506.1001, L501.9985, L100.0100, L500.4100, L500.4050, L400.0001, L502.0250 #### [facility] [address] [place], [address] Hemoglobin (Bld) [Mass/Vol] 13.2 g/dL Normal 13.0-16.5 [facility] Comment on above: Performed By: #### L 506.1001, L501.9985, L100.0100, L500.4100, L500.4050, L400.0001, L502.0250 #### [facility] [address] [place], [address] IG% 0.400 Normal 0.0-0.9 [facility] Comment on above: Result Comment: IG% - Immature Granulocytes (promyelocytes, myelocytes and metamyelocytes) > 1% indicates that a LEFT SHIFT is Present. Performed By: #### L 506.1001, L501.9985, L100.0100, L500.4100, L500.4050, L400.0001, L502.0250 #### [facility] [address] [place], [address] Lymphocytes/100 WBC (Bld) 17.3 % Low 19-41 [facility] Comment on above: Performed By: #### L 506.1001, L501.9985, L100.0100, L500.4100, L500.4050, L400.0001, L502.0250 #### [facility] [address] [place], [address] MCH (RBC) [Entitic mass] 28.2 pg Normal 27.0-32.0 [facility] Comment on above: Performed By: #### L 506.1001, L501.9985, L100.0100, L500.4100, L500.4050, L400.0001, L502.0250 #### [facility] [address] [place], [address] MCHC (RBC) [Mass/Vol] 31.8 g/dL Low 32-36 [facility] Comment on above: Performed By: #### L 506.1001, L501.9985, L100.0100, L500.4100, L500.4050, L400.0001, L502.0250 #### [facility] [address] [place], [address] MCV (RBC) [Entitic vol] 88.7 fL Normal 80-94 [facility] Comment on above: Performed By: #### L 506.1001, L501.9985, L100.0100, L500.4100, L500.4050, L400.0001, L502.0250 #### [facility] [address] [place], [address] Monocytes/100 WBC (Bld) 8.1 % Normal 0-10 [facility] Comment on above: Performed By: #### L 506.1001, L501.9985, L100.0100, L500.4100, L500.4050, L400.0001, L502.0250 #### [facility] [address] [place], [address] Neutrophils/100 WBC (Bld) 69.8 % Normal 47-70 [facility] Comment on above: Performed By: #### L 506.1001, L501.9985, L100.0100, L500.4100, L500.4050, L400.0001, L502.0250 #### [facility] [address] [place], [address] Nucleated RBC (Bld) [#/Vol] 0 10*3/uL Normal 0-5 [facility] Comment on above: Performed By: #### L 506.1001, L501.9985, L100.0100, L500.4100, L500.4050, L400.0001, L502.0250 #### [facility] [address] [place], [address] Platelet mean volume (Bld) [Entitic vol] 10.1 fL Normal 6.2-12.0 [facility] Comment on above: Performed By: #### L 506.1001, L501.9985, L100.0100, L500.4100, L500.4050, L400.0001, L502.0250 #### [facility] [address] [place], [address] Platelets (Bld) [#/Vol] 250 10*3/uL Normal 150-450 [facility] Comment on above: Performed By: #### L 506.1001, L501.9985, L100.0100, L500.4100, L500.4050, L400.0001, L502.0250 #### [facility] [address] [place], [place], [id number] (252) RBC (Bld) [#/Vol] 4.68 10*6/uL Normal 4.6-6.2 [facility] Comment on above: Performed By: #### L 506.1001, L501.9985, L100.0100, L500.4100, L500.4050, L400.0001, L502.0250 #### [facility] Laboratory [address] [place], [address] RDW SD 52.4 fl High 35.1-43.9 [facility] Comment on above: Performed By: #### L 506.1001, L501.9985, L100.0100, L500.4100, L500.4050, L400.0001, L502.0250 #### [facility] Laboratory [address] [place], [address] WBC (Bld) [#/Vol] 7.8 10*3/uL Normal 4.4-11.0 [facility] Comment on above: Performed By: #### L 506.1001, L501.9985, L100.0100, L500.4100, L500.4050, L400.0001, L502.0250 #### [facility] Laboratory [address] [place], [address] Calculated very low density lipoprotein (VLDL) cholesterol measurementOrdered By: Aidan Argueta on 11-05-2024 VLDL Cholesterol 19 mg/dL 5-40 [facility] Carbon dioxide measurementOr dered By: Aidan Argueta on 11-05-2024 CO2 [Moles/Vol] 21.3 mmol/L Low 22.0-29.0 [facility] Chloride measurementOrdered By: Aidan Argueta on 11-05-2024 Chloride [Moles/Vol] 107 mmol/L 96-108 [facility] Comprehensive Metabolic Prof ilon 11-05-2024 Albumin [Mass/Vol] 4.0 g/dL Normal 3.4-4.8 [facility] Comment on above: Performed By: #### L 506.1001, L501.9985, L100.0100, L500.4100, L500.4050, L400.0001, L502.0250 #### [facility] Laboratory [address] [place], [address] Albumin/Globulin [Mass ratio] 1.3 {ratio} Normal 0.9-2.4 [facility] Comment on above: Performed By: #### L 506.1001, L501.9985, L100.0100, L500.4100, L500.4050, L400.0001, L502.0250 #### [facility] Laboratory [address] [place], [address] ALK PHOS 96 U/L Normal 40-129 [facility] Comment on above: Performed By: #### L 506.1001, L501.9985, L100.0100, L500.4100, L500.4050, L400.0001, L502.0250 #### [facility] Laboratory [address] [place], [address] ALT [Catalytic activity/Vol] 21 U/L Normal <=46 [facility] Comment on above: Performed By: #### L 506.1001, L501.9985, L100.0100, L500.4100, L500.4050, L400.0001, L502.0250 #### [facility] Laboratory [address] [place], [address] Anion gap [Moles/Vol] 11 mmol/L Normal 5-15 [facility] Comment on above: Performed By: #### L 506.1001, L501.9985, L100.0100, L500.4100, L500.4050, L400.0001, L502.0250 #### [facility] Laboratory [address] [place], [address] AST [Catalytic activity/Vol] 20 U/L Normal <=37 [facility] Comment on above: Performed By: #### L 506.1001, L501.9985, L100.0100, L500.4100, L500.4050, L400.0001, L502.0250 #### [facility] Laboratory [address] [place], [address] Bilirubin [Mass/Vol] 0.22 mg/dL Normal 0.00-1.30 [facility] Comment on above: Performed By: #### L 506.1001, L501.9985, L100.0100, L500.4100, L500.4050, L400.0001, L502.0250 #### [facility] Laboratory [address] [place], [address] BUN/CRE 23.3 RATIO High 10-20 [facility] Comment on above: Performed By: #### L 506.1001, L501.9985, L100.0100, L500.4100, L500.4050, L400.0001, L502.0250 #### [facility] Laboratory [address] [place], [address] Calcium [Mass/Vol] 10.0 mg/dL Normal 7.6-11.0 [facility] Comment on above: Performed By: #### L 506.1001, L501.9985, L100.0100, L500.4100, L500.4050, L400.0001, L502.0250 #### [facility] Laboratory [address] [place], [address] Chloride [Moles/Vol] 107 mmol/L Normal 96-108 [facility] Comment on above: Performed By: #### L 506.1001, L501.9985, L100.0100, L500.4100, L500.4050, L400.0001, L502.0250 #### [facility] Laboratory [address] [place], [address] CO2 [Moles/Vol] 21.3 mmol/L Low 22.0-29.0 [facility] Comment on above: Performed By: #### L 506.1001, L501.9985, L100.0100, L500.4100, L500.4050, L400.0001, L502.0250 #### [facility] Laboratory [address] [place], [address] Creatinine [Mass/Vol] 0.78 mg/dL Normal 0.70-1.20 [facility] Comment on above: Performed By: #### L 506.1001, L501.9985, L100.0100, L500.4100, L500.4050, L400.0001, L502.0250 #### [facility] Laboratory [address] [place], [address] GFR/1.73 sq M.predicted among non-blacks MDRD (S/P/Bld) [Vol rate/Area] 94 mL/min/{1.73_m2} Normal >60 [facility] Comment on above: Result Comment: mL/m in/1.73m2 CKD-EPI Creatinine Equation (2020) Performed By: #### L 506.1001, L501.9985, L100.0100, L500.4100, L500.4050, L400.0001, L502.0250 #### [facility] Laboratory [address] [place], [address] Globulin (S) [Mass/Vol] 3.2 g/dL Normal 2.2-4.2 [facility] Comment on above: Performed By: #### L 506.1001, L501.9985, L100.0100, L500.4100, L500.4050, L400.0001, L502.0250 #### [facility] Laboratory [address] [place], [address] Glucose [Mass/Vol] 149 mg/dL High 70-99 [facility] Comment on above: Performed By: #### L 506.1001, L501.9985, L100.0100, L500.4100, L500.4050, L400.0001, L502.0250 #### [facility] Laboratory [address] [place], [address] Potassium [Moles/Vol] 4.2 mmol/L Normal 3.3-5.1 [facility] Comment on above: Performed By: #### L 506.1001, L501.9985, L100.0100, L500.4100, L500.4050, L400.0001, L502.0250 #### [facility] Laboratory [address] [place], [address] Sodium [Moles/Vol] 140 mmol/L Normal 133-145 [facility] Comment on above: Performed By: #### L 506.1001, L501.9985, L100.0100, L500.4100, L500.4050, L400.0001, L502.0250 #### [facility] Laboratory [address] [place], [address] T PROT 7.2 g/dL Normal 5.9-8.4 [facility] Comment on above: Performed By: #### L 506.1001, L501.9985, L100.0100, L500.4100, L500.4050, L400.0001, L502.0250 #### [facility] Laboratory [address] [place], [address] Urea nitrogen [Mass/Vol] 18 mg/dL Normal 4-19 [facility] Comment on above: Performed By: #### L 506.1001, L501.9985, L100.0100, L500.4100, L500.4050, L400.0001, L502.0250 #### [facility] Laboratory [address] [place], [address] Creatinine Unsp time (U) [Ma ss/Vol]Ordered By: Aidan Argueta on 11-05-2024 Creatinine (U) [Mass/Vol] 67.90 mg/dL 39-259 [facility] Eosinophil percentageOrdered By: Aidan Argueta on 11-05-2024 Eosinophils/100 WBC (Bld) 3.6 % 0-5 [facility] Epithelial cells.squamous LM Ql (Urine sed)Ordered By: Aidan Argueta on 11-05-2024 Epithelial cells.squamous LM.HPF (Urine sed) [#/Area] 0 /[HPF] 0-5 [facility] Erythrocyte distribution wid th ratioOrdered By: Aidan Argueta on 11-05-2024 Erythrocyte distribution width (RBC) [Ratio] 16.3 % High 11.6-14.6 [facility] Erythrocyte distribution wid th standard deviationOrdered By: Aidan Argueta on 11-05-2024 Erythrocyte distribution width (RBC) [Entitic vol] 52.4 fL High 35.1-43.9 [facility] GFR/1.73 sq M.predicted rashida g non-blacks MDRD (S/P/Bld) [Vol rate/Area]Ordered By: Aidan Argueta on 11-05-2024 Estimated GFR (MDRD) Non-Af Amer 94 >60 [facility] Comment on above: mL/min/1.73m2 CKD-EP I Creatinine Equation (2020) Glucose Ql (U)Ordered By: Johanny Argueta on 11-05-2024 Glucose (U) [Mass/Vol] 1000 mg/dL High Normal [facility] Hematocrit Auto (Bld) [Volum e fraction]Ordered By: Aidan Argueta on 11-05-2024 Hematocrit (Bld) [Volume fraction] 41.5 % 40-54 [facility] Hemoglobin A1con 11-05-2024 HbA1c (Bld) [Mass fraction] 7.0 % Normal <=5.6 [facility] Comment on above: Performed By: #### L 506.1001, L501.9985, L100.0100, L500.4100, L500.4050, L400.0001, L502.0250 #### [facility] Laboratory [address] [place], [address] Hemoglobin A1c percentageOrd ered By: Aidan Argueta on 11-05-2024 HbA1c (Bld) [Mass fraction] 7.0 % >5.7 [facility] Hemoglobin measurementOrdere d By: Aidan Argueta on 11-05-2024 Hemoglobin (Bld) [Mass/Vol] 13.2 g/dL 13.0-16.5 [facility] Immature granulocytes/100 WB C Auto (Bld)Ordered By: Aidan Argueta on 11-05-2024 Immature granulocytes/100 WBC (Bld) 0.400 % 0.0-0.9 [facility] Comment on above: IG% - Immature Granu locytes (promyelocytes, myelocytes and metamyelocytes) > 1% indicates that a LEFT SHIFT is Present. Ketones Test strip Ql (U)Ord ered By: Aidan Argueta on 11-05-2024 Ketones Ql (U) Negative Negative [facility] L506.1001on 11-05-2024 Vitamin D 25-OH 28.8 ng/mL Low 30-100 [facility] Comment on above: Result Comment: Kena min D Status Deficiency: <20 ng/mL (50nmol/L) Insufficiency: 20-30 ng/mL (50-75 nmol/L) Sufficiency: 30-100 ng/mL (75-250 nmol/L) Toxicity: >100 ng/mL (>250 nmol/L) Performed By: #### M 100.2200 #### [facility] Laboratory [address] [place], [address] LDL calc ser/plasOrdered By: Aidan Argueta on 11-05-2024 LDL Cholesterol, Calculated 58 mg/dL [facility] Comment on above: Grbrlomlji=050-002 m g/dL & Higher Ruad=787 mg/dL or greater Laboratory - Chemistry and C hemistry - challengeOrdered By: Aidan Argueta on 11-05-2024 AST [Catalytic activity/Vol] 20 U/L <38 [facility] Lipid Profileon 11-05-2024 CHOL:HDL 2.49 Normal [facility] Comment on above: Performed By: #### M 100.2200 #### [facility] Laboratory [address] [place], [address] Cholesterol [Mass/Vol] 130 mg/dL Normal <=200 [facility] Comment on above: Result Comment: Chol esterol level, Desirable <200 mg/dL Borderline high cholesterol 200-239 mg/dL High cholesterol >=240 mg/dL Recommendations of the NCEP Adult Treatment Panel for the following risk-cutoff thresholds for the [place] population. Performed By: #### M 100.2200 #### [facility] Laboratory [address] [place], [address] Cholesterol in HDL [Mass/Vol] 52 mg/dL Normal [facility] Comment on above: Result Comment: Davida onal Cholesterol Education Program (NCEP) guidelines: <40 mg/dL: Low HDL-cholesterol (major risk factor for CHD) >= 60 mg/dL: High HDL-cholesterol (negative risk factor for CHD) HDL-cholesterol is affected by a number of factors, e.g. smoking, exercise, hormones, sex and age. Performed By: #### M 100.2200 #### [facility] Laboratory [address] [place], [address] Cholesterol in LDL [Mass/Vol] 58 mg/dL Normal [facility] Comment on above: Result Comment: Bord mmqvpc=097-258 mg/dL Higher Pmpf=454 mg/dL or greater Performed By: #### M 100.2200 #### [facility] Laboratory [address] [place], [address] Cholesterol in VLDL [Mass/Vol] 19 mg/dL Normal 5-40 [facility] Comment on above: Performed By: #### M 100.2200 #### [facility] Laboratory [address] [place], [place], [address] Triglyceride [Mass/Vol] 97 mg/dL Normal [facility] Comment on above: Result Comment: The drugs N-Acetylcysteine and Metamizole may falsely depress this assay. Normal range: <150 mg/dL Borderline High: 150-199 mg/dL High: 200-499 mg/dL Very High: >500 mg/dL Performed By: #### M 100.2200 #### [facility] Laboratory [address] [facility] [place], [address] Lymphocytes Auto (Unsp spec) [#/Vol]Ordered By: Aidan Argueta on 11-05-2024 Lymphocytes (Bld) [#/Vol] 1.35 10*3/uL 0.83-4.51 [facility] Lymphocytes/100 WBC Auto (Un sp spec)Ordered By: Aidan Argueta on 11-05-2024 Lymphocytes/100 WBC (Bld) 17.3 % Low 19-41 [facility] MCV (mean corpuscular volume ) determinationOrdered By: Aidan Argueta on 11-05-2024 MCV (RBC) [Entitic vol] 88.7 fL 80-94 [facility] Mean corpuscular hemoglobin (MCH) determinationOrdered By: Aidan Argueta on 11-05-2024 MCH (RBC) [Entitic mass] 28.2 pg 27.0-32.0 [facility] Mean corpuscular hemoglobin concentration (MCHC) determinationOrdered By: Aidan Argueta on 11-05-2024 MCHC (RBC) [Mass/Vol] 31.8 g/dL Low 32-36 [facility] Mean platelet volume determi nationOrdered By: Aidan Argueta on 11-05-2024 Platelet mean volume (Bld) [Entitic vol] 10.1 fL 6.2-12.0 [facility] Microalb:Creat Ratio,Random URon 11-05-2024 Creatinine [Mass/Vol] 67.90 mg/dL Normal 39-259 [facility] Comment on above: Performed By: #### L 506.1001, L501.9985, L100.0100, L500.4100, L500.4050, L400.0001, L502.0250 #### [facility] Laboratory [address] [place], [place], [id number] MALB:CREAT UNABLE TO CALCULATE Normal [facility] Comment on above: Performed By: #### L 506.1001, L501.9985, L100.0100, L500.4100, L500.4050, L400.0001, L502.0250 #### [facility] Laboratory [address] [place], [place], [address] MICROALBUMIN,UR < 12.0 Normal NO RANGE EST. [facility] Comment on above: Performed By: #### L 506.1001, L501.9985, L100.0100, L500.4100, L500.4050, L400.0001, L502.0250 #### [facility] Laboratory [address] [place], [place], [address] Microalbumin/creat ratio urO rdered By: Aidan Argueta on 11-05-2024 Urine Microalbumin/Creatinine Ratio UNABLE TO CALCULATE mg/g CRE [facility] Microscopic analysis of urin e for red blood cells (RBC)Ordered By: Aidan Argueta on 11-05-2024 Urine RBC 0 SEEN /hpf 0-5 [facility] Monocyte percentageOrdered B y: Aidan Argueta on 11-05-2024 Monocytes/100 WBC (Bld) 8.1 % 0-10 [facility] Mucus LM Ql (Urine sed)Order ed By: Aidan Argueta on 11-05-2024 Mucus Ql (Urine sed) 0 SEEN /hpf [facility] Neutrophil percentageOrdered By: Aidan Argueta on 11-05-2024 Neutrophils/100 WBC (Bld) 69.8 % 47-70 [facility] Nitrite Test strip Ql (U)Ord ered By: Aidan Argueta on 11-05-2024 Nitrite Ql (U) Negative Negative [facility] Nucleated red blood cell per centageOrdered By: Aidan Argueta on 11-05-2024 Nucleated RBC/100 WBC (Bld) [Ratio] 0 % 0-5 [facility] Platelet countOrdered By: Johanny Argueta on 11-05-2024 Platelets (Bld) [#/Vol] 250 10*3/uL 150-450 [facility] Protein Test strip Ql (U)Ord ered By: Aidan Argueta on 11-05-2024 Protein Ql (U) Negative Negative [facility] RBC Auto (Bld) [#/Vol]Ordere d By: Aidan Argueta on 11-05-2024 RBC (Bld) [#/Vol] 4.68 10*6/uL 4.6-6.2 [facility] Screening total cholesterol/ high density lipoprotein (HDL) cholesterol ratioOrdered By: Aidan Argueta on 11-05-2024 Cholesterol.total/Rosario sterol in HDL [Mass ratio] 2.49 {ratio} [facility] Serum creatinine measurement (mass/volume)Ordered By: Aidan Argueta on 11-05-2024 Creatinine [Mass/Vol] 0.78 mg/dL 0.70-1.20 [facility] Serum globulin measurementOr dered By: Aidan Argueta on 11-05-2024 Globulin (S) [Mass/Vol] 3.2 g/dL 2.2-4.2 [facility] Serum glucose measurement (m ass/volume)Ordered By: Aidan Argueta on 11-05-2024 Glucose [Mass/Vol] 149 mg/dL High 70-99 [facility] Serum or plasma alanine mckeon otransferase (ALT) measurementOrdered By: Aidan Argueta on 11-05-2024 ALT [Catalytic activity/Vol] 21 U/L <47 [facility] Serum or plasma albumin winsome urement (mass/volume)Ordered By: Aidan Argueta on 11-05-2024 Albumin [Mass/Vol] 4.0 g/dL 3.4-4.8 [facility] Serum or plasma albumin/glob ulin mass ratioOrdered By: Aidan Argueta on 11-05-2024 Albumin/Globulin [Mass ratio] 1.3 {ratio} 0.9-2.4 [facility] Serum or plasma alkaline corinne sphatase measurementOrdered By: Aidan Argueta on 11-05-2024 ALP [Catalytic activity/Vol] 96 U/L 40-129 [facility] Serum or plasma anion gap de termination (moles/volume)Ordered By: Aidan Argueta on 11-05-2024 Anion gap [Moles/Vol] 11 mmol/L 5-15 [facility] Serum or plasma calcium winsome urement (mass/volume)Ordered By: Aidan Argueta on 11-05-2024 Calcium [Mass/Vol] 10.0 mg/dL 7.6-11.0 [facility] Serum or plasma cholesterol in HDL measurement (mass/volume)Ordered By: Aidan Argueta on 11-05-2024 Cholesterol in HDL [Mass/Vol] 52 mg/dL >40 [facility] Comment on above: National Cholesterol Education Program (NCEP) guidelines:<40 mg/dL: Low HDL-cholesterol (major risk factor for CHD)>= 60 mg/dL: High HDL-cholesterol (negative risk factor for CHD)HDL-cholesterol is affected by a number of factors, e.g. smoking, exercise, hormones, sex and age. Serum or plasma cholesterol measurement (mass/volume)Ordered By: Aidan Argueta on 11-05-2024 Cholesterol [Mass/Vol] 130 mg/dL <201 [facility] Comment on above: Cholesterol level, D esirable <200 mg/dLBorderline high cholesterol 200-239 mg/dLHigh cholesterol >=240 mg/dLRecommendations of the NCEP Adult Treatment Panel for the following risk-cutoff thresholds for the [place] population. Serum or plasma potassium me asurementOrdered By: Aidan Argueta on 11-05-2024 Potassium [Moles/Vol] 4.2 mmol/L 3.3-5.1 [facility] Serum or plasma sodium measu rement (moles/volume)Ordered By: Aidan Argueta on 11-05-2024 Sodium [Moles/Vol] 140 mmol/L 133-145 [facility] Serum or plasma urea nitroge n measurement (mass/volume)Ordered By: Aidan Argeuta on 11-05-2024 Urea nitrogen [Mass/Vol] 18 mg/dL 4-19 [facility] Total proteinOrdered By: Todd Argueta on 11-05-2024 Protein [Mass/Vol] 7.2 g/dL 5.9-8.4 [facility] Triglycerides measurementOrd ered By: Aidan Argueta on 11-05-2024 Triglyceride [Mass/Vol] 97 mg/dL <199 [facility] Comment on above: The drugs N-Acetylcy steine and Metamizole may falsely depress this assay. Normal range: <150 mg/dLBorderline High: 150-199 mg/dLHigh: 200-499 mg/dLVery High: >500 mg/dL Urinalysis, Completeon 11-05 EPI,SQUAMOUS 0-5 SEEN Normal 0-5 [facility] Comment on above: Order Comment: CLEAN CATCH Performed By: #### L 506.1001, L501.9985, L100.0100, L500.4100, L500.4050, L400.0001, L502.0250 #### [facility] Laboratory [address] [place], [address] RBC 0 SEEN Normal 0-5 [facility] Comment on above: Order Comment: CLEAN CATCH Performed By: #### L 506.1001, L501.9985, L100.0100, L500.4100, L500.4050, L400.0001, L502.0250 #### [facility] Laboratory [address] [place], [address] WBC 0-5 SEEN Normal 0-5 [facility] Comment on above: Order Comment: CLEAN CATCH Performed By: #### L 506.1001, L501.9985, L100.0100, L500.4100, L500.4050, L400.0001, L502.0250 #### [facility] Laboratory [address] [place], [address] BACTERIA 0 SEEN Normal None Seen [facility] Comment on above: Order Comment: CLEAN CATCH Performed By: #### L 506.1001, L501.9985, L100.0100, L500.4100, L500.4050, L400.0001, L502.0250 #### [facility] Laboratory [address] [place], [address] Mucus Ql (Urine sed) 0 SEEN Normal [facility] Comment on above: Order Comment: CLEAN CATCH Performed By: #### L 506.1001, L501.9985, L100.0100, L500.4100, L500.4050, L400.0001, L502.0250 #### [facility] Laboratory [address] [place], [address] Urine blood detectionOrdered By: Aidan Argueta on 11-05-2024 Urine Occult Blood Negative Negative [facility] Urine clarityOrdered By: Todd Argueta on 11-05-2024 Clarity (U) Clear Clear [facility] Urine color determinationOrd ered By: Aidan Argueta on 11-05-2024 Color (U) Yellow Yellow [facility] Urine leukocyte esterase det ection by dipstickOrdered By: Aidan Argueta on 11-05-2024 Leukocyte esterase Test strip Ql (U) Negative Negative [facility] Urine pHOrdered By: Aidan cates on 11-05-2024 pH (U) 5.0 [pH] 5.0 - 8.0 [facility] Urine sediment bacteria coun t by microscopy (number/high power field)Ordered By: Aidan Argueta on 11-05-2024 Bacteria LM.HPF (Urine sed) [#/Area] 0 /[HPF] None Seen [facility] Urine specific gravity measu rementOrdered By: Aidan Argueta on 11-05-2024 Specific gravity (U) [Rel density] 1.020 1.002-1.03 0 [facility] Urobilinogen Ql (U)Ordered B y: Aidan Argueta on 11-05-2024 Urine Urobilinogen Normal mg/dl Normal [facility] Vitamin D, 25-hydroxyOrdered By: Aidan Argueta on 11-05-2024 Vitamin D 25-Hydroxy 28.8 ng/mL Low 30-100 [facility] Comment on above: Vitamin D StatusDefi ciency: <20 ng/mL (50nmol/L)Insufficiency: 20-30 ng/mL (50-75 nmol/L)Sufficiency: 30-100 ng/mL (75-250 nmol/L)Toxicity: >100 ng/mL (>250 nmol/L) White blood cell (WBC) count Ordered By: Aidan Argueta on 11-05-2024 WBC (Bld) [#/Vol] 7.8 10*3/uL 4.4-11.0 [facility] White blood cell countOrdere d By: Aidan Argueta on 11-05-2024 Urine WBC 0-5 SEEN /hpf 0-5 [facility] Office Visiton 10-10-2024 Follow-up visit [id number] Avery Vasquez 1950 M Date Provider Department Center 10/10/2024 [id number] None No family history on file Level of Service:56636 [place] OFFICE/OUTPATIENT ESTABLISHED LOW MDM 20 MIN Reason for Visit and Comments: Follow-up [762162] Normal [facility] Progress Noteon 10-10-2024 Progress Note [facility] [facility] [address], [address] [place], [place] [id number] Name: Avery Vasquez : 1950 Age: 74 y.o. Visit Date: 10/10/24 Reason for Visit: PE History of Present Illness: Avery Vasquez is a 74 y.o. male presenting for evaluation for PE. Patient has a past medical history of: - bilateral provoked segmental PE (07/06/24), completed 3 months of Eliquis - recent traumatic right SAH/SDH - DM2 with peripheral neuropathy - non-smoker Patient last evaluated by me on 07/23/24. Patient was evaluated by inpatient consult service while admitted 07/06/24-07/12/24 for pre-syncope and chills in the setting of bilateral PE and Bacteroids BSI. Prior to this, he was admitted 06/26/24-06/27/24 after a traumatic injury from a cow resulting in right clavicle fracture, right ribs 2-3 fractures, and small traumatic right SAH/SDH. During his most recent admission, he was managed with heparin infusion and later switched to Eliquis, which he tolerated. Patient feels well overall today. He slipped on the ice a few weeks ago and landed on his left leg, had some bruising but otherwise no episodes of bleeding recently. He was recently treated for a UTI but no hematuria. He denies fever, chills, chest pain, shortness of breath, cough, orthopnea, hemoptysis, abdominal pain, nausea, vomiting, diarrhea, constipation, lightheadedness, dizziness, dysuria, hematuria, melena, hematochezia, leg pain, leg swelling. He is hemodynamically stable and in no acute distress. 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 No pertinent surgical history. Family History: No family history on file. No family status information on file. Social History: reports that he has never smoked. He has never used smokeless tobacco. He reports current alcohol use. He reports that he does not use drugs. Current Outpatient Medications Medication Instructions atorvastatin (LIPITOR) 10 mg, Nightly bacitracin 500 UNIT/GM ointment Topical, 3 times daily Calcium Carbonate-Vit D-Min (Calcium 600+D3 Plus Minerals) 600-800 MG-UNIT tablet 1 tablet, Daily dapagliflozin (FARXIGA) 10 mg, Daily glimepiride (AMARYL) 1 mg, Daily with breakfast metFORMIN (GLUCOPHAGE) 500 mg, 2 times daily with meals Multiple Vitamins-Minerals (MULTIVITAMIN ADULT, MINERALS, PO) 1 tablet, Daily sennosides (SENOKOT) 17.2 mg, Oral, 2 times daily tamsulosin (FLOMAX) 0.4 mg, Nightly Trulicity 0.75 mg, Weekly valsartan (DIOVAN) 160 mg, Oral, Daily Allergies Allergen Reactions Bactrim [Sulfamethoxazole-Trimetho prim] Hives Hydrocodone-Acetaminophen Nausea And Vomiting Lisinopril Cough Tramadol Rash and Dizziness Review of Symptoms: 10 systems reviewed and negative except as mentioned above. Physical Exam: Vitals: Blood pressure 128/78, pulse 85, height 5' 7 (1.702 m), weight 227 lb (103 kg), SpO2 94%. General: AAOx3, NAD, pt is comfortable HEENT: normocephalic, no obvious trauma, moist oral and nasal mucosa, conjunctivae/corneas clear RESPIRATORY: clear to auscultation bilaterally, no wheezing, no crackles CARDIOVASCULAR: +S1/S2, RRR, no murmurs, no rubs, no gallops, no obvious JVD, peripheral pulses palpable in UE and LE GASTROINTESTINAL: soft, nondistended, nontender, normal bowel sounds MUSCULOSKELETAL: no obvious deformities noted, no edema in b/l LE SKIN: warm and dry, intact, without obvious lesions NEUROLOGICAL: no gross motor deficits PSYCHIATRIC: appropriate to circumstances LYMPHATIC: no palpable lymphadenopathy Data Review: Labs No results for input(s): WBC, HGB, HCT in the last 72 hours. No lab exists for component: PLAT No results for input(s): NA, K, CL, CO2, GLUCOSE, BUN, CREATININE, EGFR, CALCIUM, ALBUMIN, ALK, AST, ALT, PTT, INR in the last 72 hours. No lab exists for component: TP, TBILI No PFT on file CTA chest (07/06/24) - [facility] IMPRESSION: Study positive for pulmonary emboli in segmental branches to the bilateral lower lobes, right upper lobe and lingula. I have personally reviewed all pertinent labs and imaging. Assessment & Plan: Bilateral PE, provoked - outside CTA chest 07/06/24 from [place] reviewed in PACS, bilateral segmental filling defects identified along with cardiomegaly and increased main PA diameter, no obvious nodules/masses - he was started on heparin infusion appropriately given recent traumatic SAH/SDH, repeat head CT 07/08/24 showed tiny right parietal SDH unchanged and no new areas of bleeding - inpatient consult service evaluated patient and recommended at least 3 months of anticoagu (more content not included)... [facility] 36on 10-08-2024 36 Phone call to tejas trimble and relayed to him that provider did want to see him at least one more time before releasing him from routine care. He verbalized agreement and will keep appt as scheduled. [place] [id number] Yes I would like to see patient one more time to review any symptoms and confirm treatment duration of anticoagulation (should be finished with 3 months of Eliquis). Thank you. [facility] 36 Name of caller: Sven blackburn Contact phone number: [phone] Relationship to Patient: patient Provider: Practice: Chief Complaint/Reason for Call: Patient calling to see why he is scheduled. Patient states at his July appointment he was told he did not need a follow up. Please advise. Best time of day caller can be reached: any Patient advised that office/PCP has 24-48 business hours to return their call: no Normal [facility] Urine Cultureon 09-26-2024 URC Enterobacter cloacae complex Peyton Count 50,000-80,000 Enterobacter cloacae complex: REACTION Cefepime Islt WOLF <=0.12 Ciprofloxacin Islt WOLF <=0.06 S Gentamicin Islt WOLF <=1 S levoFLOXacin Islt WOLF <=0.12 S Meropenem Islt WOLF <=0.25 S Nitrofurantoin Islt WOLF 64 I Pip+Tazo Islt WOLF <=4 S TMP SMX Islt WOLF <=20 S Normal [facility] Comment on above: Performed By: #### M 100.2200 #### [facility] [address] [place] [address], [id number] Urine cultureOrdered By: Todd Argueta on 09-24-2024 Bacteria identified Cx Nom (U) Enterobacter cloacae complex Abnormal [facility] - Chemistry and C hemistry - challengeon 09-23-2024 Bilirubin Ql (U) Negative [facility] Glucose Ql (U) Negative [facility] Ketones Ql (U) Moderate (40+) [facility] pH (U) 5.0 [pH] [facility] Specific gravity (U) [Rel density] 1.015 [facility] Urobilinogen (U) [Mass/Vol] 0.6915838 mg/dL [facility] - Hematology and Cell countson 09-23-2024 Hemoglobin Ql (U) Trace [facility] - Specimen inform ationon 09-23-2024 Clarity (U) Cloudy [facility] Color (U) DARK YELLOW [facility] - Urinalysison Nitrite Ql (U) Negative [facility] Protein Ql (U) Positive [facility] No Panel Informationon 09-23 Urine Leukocytes Positive [facility] Urine Non-Hemolyzed Blood Trace [facility] Urgent Care Visit Reporton 0 09-23-2024 Urgent Care Visit Report [facility] [address], [address] [place] [address] OFFICE VISIT Date of Service: 09/23/24 MR#: [id number] Acct: [id number] Name: AVERY VASQUEZ Rep #: [id number] : 1950 Provider: [facility] Self Schedule Age/Sex: 74/M Location[facility] Status: Signed Intake Vital Signs 07/26/24 08:23 09/23/24 08:15 Height 5 ft 8 in Weight: 225 lb 6 oz BMI 34.2 BP 130/72 H Blood Pressure Location Lt brachial Position Sitting Respiration 12 Pulse 100 Pulse Source NIBP Temp 98.7 F Temp Source Oral Pulse Oximetry (%) 94 Oxygen Delivery Method room air Intake Visit Reasons: Booked from other vendor Chief Complaint: injury on 06/26/24 Allergies sulfamethoxazole (From Bactrim) Allergy (Severe, Verified 07/26/24 08:24) Rash trimethoprim (From Bactrim) Allergy (Severe, Verified 07/26/24 08:24) Rash hydrocodone bitartrate (From Vicodin) Adverse Reaction (Verified 07/26/24 08:24) Nausea tramadol Adverse Reaction (Verified 07/26/24 08:24) Other Medications ???Medication ???Instructions ???Recorded ???Confirmed ???Type atorvastatin 10 mg tablet 10 mg PO DAILY 08/10/13 09/23/24 History metformin 500 mg tablet 1,000 mg PO BIDCM 08/10/13 09/23/24 History aspirin 81 mg tablet,delayed 81 mg PO DAILY 12/16/17 09/23/24 History release (Adult Low Dose Aspirin) calcium 500 mg (as 1 tab PO DAILY 02/10/22 09/23/24 History carbonate)-vitamin D3 3.125 mcg (125 unit) tablet multivitamin 1 tab PO DAILY 02/10/22 09/23/24 History dulaglutide 0.75 mg/0.5 mL 0.75 mg subcut QWEEK 06/26/24 09/23/24 History subcutaneous pen injector (Trulicity) glimepiride 1 mg tablet 1 mg PO DAILY 06/26/24 09/23/24 History tamsulosin 0.4 mg capsule 0.4 mg PO DAILY 06/26/24 09/23/24 History valsartan 160 mg tablet 160 mg PO BID 06/26/24 09/23/24 History dapagliflozin propanediol 10 mg 10 mg PO DAILY 07/06/24 09/23/24 History tablet (Farxiga) ciprofloxacin HCl 500 mg tablet 500 mg PO BID 7 days #14 tabs 09/23/24 09/23/24 Rx Have you fallen in the past year?: No PFSH Medical History Right clavicle fracture Wears dentures Wears glasses Alcohol use Diabetes Arthritis High cholesterol Back pain Syncope Dietary restriction Chronic cough Leg cramps History of echocardiogram History of irregular heartbeat History of trigger finger HX OF HEMATOMA REMOVAL Carpal tunnel syndrome Neck pain Back pain Chest pain Diabetes Shoulder pain Loss of consciousness Arthritis Hypertension Surgical History Hx of shoulder replacement Hx of colonoscopy History of skin graft Hx of surgical amputation of finger History of knee replacement Family History Other Cancer Heart disease Social History Smoking Status: Never smoker alcohol intake: current alcohol intake frequency: a few times a month Alcohol type: wine HPI HPI Chief Complaint: injury on 06/26/24 Details: AVERY VASQUEZ, is a 74 M who presents to the office today for concerns regarding urinary frequency. He denies fever. This has been ongoing since last night. He acknowledges having these symptoms previously, but does not recall details or medication that was successful to improve such symptoms. ROS Const Constitutional: No body ache, chills, fatigue, fever(s) (no fever greater than 99.9 F), malaise, night sweats or other (rigors) Resp Respiratory: No shortness of breath Cardio Cardiology: No chest pain at rest or chest pain with exertion Gastro GI: No abdominal pain Genitourinary Male: Positive for urinary frequency; No burning urination, painful urination, urinary urgency, blood in urine, suprapubic fullness or side pain Endo Endocrine: No fatigue Exam Const General: cooperative, healthy appearing, comfortable and no acute distress Orientation: alert, awake and oriented x3 Chest Chest palpation inspection: normal inspection of the chest Resp Effort Inspection: normal respiratory effort Auscultation: Bilateral: Clear to Auscultation Cardio Rhythm: other (Normal) Heart Sounds: S1 normal, S2 normal and no murmurs GI Inspection: normal to inspection and non-distended Auscultation: normal bowel sounds Palpation: soft and nontender General: No CVA tenderness Skin General: no rashes or lesions noted Results POC Urinalysis Dip (Clinic) Office Urine Color DARK YELLOW Last Edit by Tori Covington on 09/23/24 08:18 Office Urine Clarity Cloudy Last Edit by Tori Covington on 09/23/24 08:18 Office Urine Glucose Negative Last Edit by Tori Covington on 09/23/24 08:18 Office Uri (more content not included)... Normal [facility] Clavicleon 07-26-2024 Clavicle [facility] [address] [place] [address] Clavicle MR#: [id number] Acct: [id number] Name: AVERY VASQUEZ Rep #: [id number] : 1950 M 74 From: Ash Blackburn PCP: Dr. Aidan Argueta MD Status: DEP AMB Study: Clavicle Date of Exam: 07/26/24 Exam# [id number] Ordering Dr: Jair Gu MD [id number] STUDY: X-RAY - RIGHT CLAVICLE REASON FOR EXAM: Male, 74 years old. fu after right clavicle suspected fracture TECHNIQUE: 2 view(s) of the clavicle. COMPARISON: No relevant prior comparison study available FINDINGS: Deformity of the ultrasound of the right clavicle likely due to old fracture. No evidence of acute displaced fracture. Normal acromioclavicular articulation. Normal visualized sternoclavicular articulation. Right shoulder arthroplasty. Normal visualized pulmonary apex. RAD/Clavicle IMPRESSION: Deformity of the right clavicle likely due to old fracture. Electronically Signed: Ash Charles MD at 12:51 EST Reading Location ID and State: [facility] / [place] Tel , Service support , CC: Dr. Aidan Argueta MD; Dr. Jair Gu MD Gis Programmer: Signed Normal [facility] Orthopedic Visit Reporton Orthopedic Visit Report [facility] [address] [place] [address] [address] [place] [address] OFFICE VISIT Date of Service: 07/26/24 MR#: [id number] Acct: [id number] Name: AVERY VASQUEZ Rep #: [id number] : 1950 Provider: Dr. Jair loza MD Age/Sex: 74/M Location[facility] Status: Signed Intake Vital Signs 07/06/24 17:55 07/26/24 08:23 Height 5 ft 8 in 5 ft 8 in Weight: 225 lb 6 oz BMI 34.2 Intake Visit Reasons: RIGHT CLAVICLE Chief Complaint: injury on 06/26/24 Accompanied by: Self Is patient in pain?: No Allergies sulfamethoxazole (From Bactrim) Allergy (Severe, Verified 07/26/24 08:24) Rash trimethoprim (From Bactrim) Allergy (Severe, Verified 07/26/24 08:24) Rash hydrocodone bitartrate (From Vicodin) Adverse Reaction (Verified 07/26/24 08:24) Nausea tramadol Adverse Reaction (Verified 07/26/24 08:24) Other Medications ???Medication ???Instructions ???Recorded ???Confirmed ???Type atorvastatin 10 mg tablet 10 mg PO DAILY 08/10/13 07/26/24 History metformin 500 mg tablet 1,000 mg PO BIDCM 08/10/13 07/26/24 History aspirin 81 mg tablet,delayed 81 mg PO DAILY 12/16/17 07/26/24 History release (Adult Low Dose Aspirin) calcium 500 mg (as 1 tab PO DAILY 02/10/22 07/26/24 History carbonate)-vitamin D3 3.125 mcg (125 unit) tablet multivitamin 1 tab PO DAILY 02/10/22 07/26/24 History dulaglutide 0.75 mg/0.5 mL 0.75 mg subcut QWEEK 06/26/24 07/26/24 History subcutaneous pen injector (Trulicity) glimepiride 1 mg tablet 1 mg PO DAILY 06/26/24 07/26/24 History tamsulosin 0.4 mg capsule 0.4 mg PO DAILY 06/26/24 07/26/24 History valsartan 160 mg tablet 160 mg PO BID 06/26/24 07/26/24 History dapagliflozin propanediol 10 mg 10 mg PO DAILY 07/06/24 07/26/24 History tablet (Farxiga) Have you fallen in the past year?: Yes PFSH Medical History Right clavicle fracture Wears dentures Wears glasses Alcohol use Diabetes Arthritis High cholesterol Back pain Syncope Dietary restriction Chronic cough Leg cramps History of echocardiogram History of irregular heartbeat History of trigger finger HX OF HEMATOMA REMOVAL Carpal tunnel syndrome Neck pain Back pain Chest pain Diabetes Shoulder pain Loss of consciousness Arthritis Hypertension Surgical History Hx of shoulder replacement Hx of colonoscopy History of skin graft Hx of surgical amputation of finger History of knee replacement Family History Other Cancer Heart disease Social History Smoking Status: Never smoker alcohol intake: current alcohol intake frequency: a few times a month Alcohol type: wine HPI RIGHT CLAVICLE Details: This documentation accurately reflects the service provided and the decisions made by me, Dr. Jair Gu MD 07/26/24 0818. Part of today???s visit was documented by [ ], acting as scribe. AVERY VASQUEZ is a 74 year old M here today for R clavicle fracture. About 4 weeks ago now. has been tx non operatively. minimal pain, good motion of the shoulder. no issues. per ED 74-year-old male presenting to the emergency room with head trauma. Patient was approaching a cow that was down on the ground. The cow apparently got up and charged him. States he remembers the charge but does not really remember after that. Patient believes he has had a loss of consciousness but unknown duration. Patient notes pain to the anterior right shoulder. He has had bilateral shoulder replacements. He denies any neck pain. He notes laceration to the right side of his head. He denies any nausea or vomiting. Denies any leg symptoms. Denies any abdominal or back pain. He does not feel short of breath. -> The patient was transferred to [place] for a brain bleed at the time. Supplemental Info [facility] Imaging Services [address] [place] [address] CT Chest, Abd, Pel w/Contrast MR#: [id number] Acct: [id number] Name: AVERY VASQUEZ Rep #: [id number] : 1950 M 74 From: Sanju Davenport MD PCP: Dr. Aidan Argueta MD Status: REG ER Study: CT Chest, Abd, Pel w/Contrast Date of Exam: 06/26/24 Exam# [id number] Ordering Dr: Cindy Harrison DO ADDENDUM by Dr. Sanju Davenport MD on 06/26/24 at 1254 ADDENDUM [id number] This is an addendum report. I suspect a nondisplaced fracture o (more content not included)... [facility] 36on 07-24-2024 36 Relayed information to patient, and he verbalized understanding. [facility] [address] Teddy franks. CT head from the hospital on 07/08 appears stable with no new hemorrhage. He may follow up with us on an as needed basis. Normal [facility] 36on 07-23-2024 36 Patient reports andrew pittman a CT of head during a hospital admission 07/06-07/12. Patient states this was not related to previous incident that occurred the beginning of June. He would like to know if CT of head obtained 07/06 will suffice, and if he could cancel CT and follow up appointment. He would prefer not having to travel back to the area to get imaging or for follow up appointment as he is an hour away. He denies any symptoms such as headaches. Normal [facility] Office Visiton 07-23-2024 Follow-up visit [id number] Avery Vasquez 1950 M Date Provider Department Center 07/23/2024 [id number] P[facility] None No family history on file Level of Service:57765 [place] OFFICE/OUTPATIENT NEW LOW [facility] 30 MINUTES Reason for Visit and Comments: New Patient [[id number]] - Pt is here to follow up from a hospital admission on 07/06/24. Pt was diagnosed with a PE. He says he is doing a lot better. Normal [facility] Progress Noteon 07-23-2024 Progress Note [facility] [address], [address] [place], [place] [address] Name: Avery Vasquez : 1950 Age: 74 y.o. Visit Date: 07/23/24 Reason for Visit: PE History of Present Illness: Avery Vasquez is a very pleasant 74 y.o. male presenting for evaluation for PE. 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 Prior to this, he was admitted 06/26/24-06/27/24 after a traumatic injury from a cow resulting in right clavicle fracture, right ribs 2-3 fractures, and small traumatic right SAH/SDH. During his most recent admission, he was managed with heparin infusion and later switched to Eliquis, which he tolerated. Today, patient presents with his . He feels well overall today, much improved compared to recent admission. He is tolerating Eliquis well. He denies fever, chills, chest pain, shortness of breath, cough, orthopnea, hemoptysis, abdominal pain, nausea, vomiting, diarrhea, constipation, lightheadedness, dizziness, dysuria, hematuria, melena, hematochezia, leg swelling. He has some right shoulder/arm discomfort related to recent fractures but no new areas of bruising. He is hemodynamically stable and in no acute distress. 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 No pertinent surgical history. Family History: No family history on file. No family status information on file. Social History: reports that he has never smoked. He has never used smokeless tobacco. He reports current alcohol use. He reports that he does not use drugs. Current Outpatient Medications Medication Instructions apixaban (ELIQUIS) 5 mg, Oral, 2 times daily atorvastatin (LIPITOR) 10 mg, Nightly bacitracin 500 UNIT/GM ointment Topical, 3 times daily Calcium Carbonate-Vit D-Min (Calcium 600+D3 Plus Minerals) 600-800 MG-UNIT tablet 1 tablet, Daily dapagliflozin (FARXIGA) 10 mg, Daily glimepiride (AMARYL) 1 mg, Daily with breakfast metFORMIN (GLUCOPHAGE) 500 mg, 2 times daily with meals Multiple Vitamins-Minerals (MULTIVITAMIN ADULT, MINERALS, PO) 1 tablet, Daily sennosides (SENOKOT) 17.2 mg, Oral, 2 times daily tamsulosin (FLOMAX) 0.4 mg, Nightly Trulicity 0.75 mg, Weekly valsartan (DIOVAN) 160 mg, Oral, Daily Allergies Allergen Reactions Bactrim [Sulfamethoxazole-Trimetho prim] Hives Hydrocodone-Acetaminophen Nausea And Vomiting Lisinopril Cough Tramadol Rash and Dizziness Review of Symptoms: 10 systems reviewed and negative except as mentioned above. Physical Exam: Vitals: Blood pressure 127/79, pulse 87, height 5' 7 (1.702 m), weight 226 lb (103 kg), SpO2 94%. General: AAOx3, NAD, pt is comfortable HEENT: normocephalic, no obvious trauma, moist oral and nasal mucosa, conjunctivae/corneas clear RESPIRATORY: clear to auscultation bilaterally, no wheezing, no crackles CARDIOVASCULAR: +S1/S2, RRR, no murmurs, no rubs, no gallops, no obvious JVD, peripheral pulses palpable in UE and LE GASTROINTESTINAL: soft, nondistended, nontender, normal bowel sounds MUSCULOSKELETAL: no obvious deformities noted, no edema in b/l LE SKIN: warm and dry, intact, without obvious lesions NEUROLOGICAL: no gross motor deficits PSYCHIATRIC: appropriate to circumstances LYMPHATIC: no palpable lymphadenopathy Data Review: Labs No results for input(s): WBC, HGB, HCT in the last 72 hours. No lab exists for component: PLAT No results for input(s): NA, K, CL, CO2, GLUCOSE, BUN, CREATININE, EGFR, CALCIUM, ALBUMIN, ALK, AST, ALT, PTT, INR in the last 72 hours. No lab exists for component: TP, TBILI No PFT on file CTA chest (07/06/24) - [facility] IMPRESSION: Study positive for pulmonary emboli in segmental branches to the bilateral lower lobes, right upper lobe and lingula. I have personally reviewed all pertinent labs and imaging. Assessment & Plan: Bilateral PE, provoked - outside CTA chest 07/06/24 from [place] reviewed in PACS, bilateral segmental filling defects identified along with cardiomegaly and increased main PA diameter, no obvious nodules/masses - he was started on heparin infusion appropriately given recent traumatic SAH/SDH, repeat head CT 07/08/24 showed tiny right parietal SDH unchanged and no new areas of bleeding - inpatient consult service evaluated patien (more content not included)... Normal [facility] PSA Total+%Freeon 07-17-2024 PSA, FREE 0.45 ng/mL Normal N/A [facility] Comment on above: Result Comment: Laquita DE LA TORRE methodology. Performed By: #### L 3110.0500 ####[facility] [id number] [place], [place], [id number] PSA, FREE % 14.7 Normal . [facility] Comment on above: Result Comment: The table below lists the probability of prostate cancer for men with non-suspicious MARILUZ results and total PSA between 4 and 10 ng/mL, by patient age (Sebastián et al, DOTTIE 1998, 279:1542). % Free PSA 50-64 yr 65-75 yr 0.00-10.00% 56% 55% 10.01-15.00% 24% 35% 15.01-20.00% 17% 23% 20.01-25.00% 10% 20% >25.00% 5% 9% Please note: Sebastián et al did not make specific recommendations regarding the use of percent free PSA for any other population of men. Performed at: [facility] [id number] [employer]: Daniel Kimbrough PhD, Phone: [phone] Performed By: #### L 3110.0500 ####[facility] [id number] [place], [place], [address] PSA, TOTAL ULTR 3.060 ng/mL Normal 0.000-4.00 0 [facility] Comment on above: Result Comment: Laquita mejias ECLIA methodology. According to the [employer], Serum PSA should decrease and remain at undetectable levels after radical prostatectomy. The AUA defines biochemical recurrence as an initial PSA value 0.200 ng/mL or greater followed by a subsequent confirmatory PSA value 0.200 ng/mL or greater. Values obtained with different assay methods or kits cannot be used interchangeably. Results cannot be interpreted as absolute evidence of the presence or absence of malignant disease. Performed By: #### L 3110.0500 ####[facility] [id number] [place], [address] 30on 07-12-2024 30 Problem: Pain - Adul t Goal: Verbalizes/displays adequate comfort level or baseline comfort level Outcome: Progressing Problem: Safety - Adult Goal: Free from fall injury Outcome: Progressing Problem: Discharge Planning Goal: Discharge to home or other facility with appropriate resources Outcome: Progressing Problem: Chronic Conditions and Co-morbidities Goal: Patient's chronic conditions and co-morbidity symptoms are monitored and maintained or improved Outcome: Progressing Problem: Knowledge Deficit Goal: Patient/family/caregiver demonstrates understanding of disease process, treatment plan, medications, and discharge instructions Outcome: Progressing Problem: Potential for Compromised Skin Integrity Goal: Skin Integrity is Maintained or Improved Outcome: Progressing Goal: Nutritional status is improving Outcome: Progressing Problem: Urinary Incontinence Goal: Perineal skin integrity is maintained or improved Outcome: Progressing Normal [facility] 30 Problem: Pain - Adul t Goal: Verbalizes/displays adequate comfort level or baseline comfort level Outcome: Progressing Problem: Safety - Adult Goal: Free from fall injury Outcome: Progressing Problem: Discharge Planning Goal: Discharge to home or other facility with appropriate resources Outcome: Progressing Problem: Chronic Conditions and Co-morbidities Goal: Patient's chronic conditions and co-morbidity symptoms are monitored and maintained or improved Outcome: Progressing Problem: Knowledge Deficit Goal: Patient/family/caregiver demonstrates understanding of disease process, treatment plan, medications, and discharge instructions Outcome: Progressing Problem: Potential for Compromised Skin Integrity Goal: Skin Integrity is Maintained or Improved Outcome: Progressing Goal: Nutritional status is improving Outcome: Progressing Problem: Urinary Incontinence Goal: Perineal skin integrity is maintained or improved Outcome: Progressing Normal [facility] [id number] 07-12-2024 [id number] Next Site of Care Admission Date: 07/06/2024 10:23 PM Patient Name: AVERY VASQUEZ Location: [address] [id number] Date of : 1950 -- Placement Information -- Referral Type:Home Health Care Services - Resume Referral ID:[id number] Provider Name:[facility] 1[facility] [facility] Address 2: City:[place] Selection Factors:Active with Agency State:[place] Normal [facility] 36on 07-12-2024 36 PC to patient to [facility] a follow up appointment however call dropped and repeat attempts went to [facility]. Patient currently admitted at [facility]. He returned call to the office from hospital phone reporting that his cell phone does not carry a signal. HFU scheduled in [place] with Dr. Rhoades per location request. Patient request appointment reminder be emailed to him at email on file in EMR. Normal [facility] BASIC METABOLIC PANELon 11-0 Anion gap [Moles/Vol] 8 mmol/L Normal 3-13 [facility] Comment on above: Performed By: #### L [id number] ####Occupancy Specialist: GATO GRAY ([phone])[address] Calcium [Mass/Vol] 9.6 mg/dL Normal 8.4-10.4 [facility] Comment on above: Performed By: #### L AB15 ####Occupancy Specialist: GATO GRAY ([phone])[address] Chloride [Moles/Vol] 108 mmol/L High 98-107 [facility] Comment on above: Performed By: #### L AB15 ####Occupancy Specialist: GATO GRAY ([phone])[facility] ([facility])[address] [place] [address] CO2 [Moles/Vol] 21 mmol/L Low 22-30 [facility] Comment on above: Performed By: #### L AB15 ####Occupancy Specialist: GATO GRAY ([phone])[facility] [place] [address] Creatinine [Mass/Vol] 0.84 mg/dL Normal 0.66-1.25 [facility] Comment on above: Performed By: #### L AB15 ####Occupancy Specialist: GATO GRAY ([phone])[facility] ([facility])[address] [place] [address] GLOMERULAR FILTRATION RATE ML/MIN/1.73 SQ M.PREDICTED >90.0 Normal >60.0 [facility] Comment on above: Result Comment: Calc ulation based on the Chronic Kidney Disease Epidemiology Collaboration (CKD-EPI) equation refit without adjustment for race Performed By: #### L [id number] ####Occupancy Specialist: GATO GRAY ([phone])[facility] [place] [address] Glucose [Mass/Vol] 143 mg/dL High 70-100 [facility] Comment on above: Performed By: #### L AB15 ####Occupancy Specialist: GATO GRAY ([phone])[facility])[address] [place] [address] [place] Potassium [Moles/Vol] 4.2 mmol/L Normal 3.5-5.1 [facility] Comment on above: Performed By: #### L AB15 ####Occupancy Specialist: GATO GRAY ([phone])[facility] ([facility])[address] [place] [address] Sodium [Moles/Vol] 137 mmol/L Normal 135-145 [facility] Comment on above: Performed By: #### L AB15 ####Occupancy Specialist: GATO GRAY ([phone])[facility] ([facility])[address] [place] [address] [place] Urea nitrogen [Mass/Vol] 15 mg/dL Normal 9-20 [facility] Comment on above: Performed By: #### L AB15 ####Occupancy Specialist: GATO GRAY ([phone])[facility] ([facility] [place] [address] Bacteria identified Aer cx N om (Lower resp)Ordered By: Mary Jo Ngo on 07-12-2024 Gram Stain Result Many Polymorphonucle ar leukocytes per low power field Abnormal [facility] Gram Stain Result Few Epithelial cells per low power field Abnormal [facility] Gram Stain Result Positive Abnormal [facility] Gram Stain Result Negative Abnormal [facility] Interpretation and review of laboratory results Abnormal [facility] Basic metabolic 1998 panelon 07-12-2024 Anion gap [Moles/Vol] 8 mmol/L 3 - 13 mmol/L [facility] Calcium [Mass/Vol] 9.6 mg/dL 8.4 - 10. 4 mg/dL [facility] Chloride [Moles/Vol] 108 mmol/L High 98 - 10 7 mmol/L [facility] CO2 [Moles/Vol] 21 mmol/L Low 22 - 30 mmol/L [facility] Creatinine [Mass/Vol] 0.84 mg/dL 0.66 - 1.25 mg/dL [facility] GFR/1.73 sq M.predicted (S/P/Bld) [Vol rate/Area] - PINF [facility] Comment on above: Calculation based on the Chronic Kidney Disease Epidemiology Collaboration (CKD-EPI) equation refit without adjustment for race Glucose [Mass/Vol] 143 mg/dL High 70 - 100 mg/dL [facility] Interpretation and review of laboratory results Abnormal [facility] Potassium [Moles/Vol] 4.2 mmol/L 3.5 - 5.1 mmol/L [facility] Sodium [Moles/Vol] 137 mmol/L 135 - 145 mmol/L [facility] Urea nitrogen [Mass/Vol] 15 mg/dL 9 - 20 mg/dL [facility] CBC (HEMOGRAM)on 07-12-2024 Erythrocyte distribution width (RBC) [Ratio] 14.2 % Normal 11.5-15.0 [facility] Comment on above: Performed By: #### L [id number] ####Occupancy Specialist: GATO GRAY ([phone])[facility] ([facility])[address] [place] [address] Hematocrit (Bld) [Volume fraction] 32.6 % Low 40.0-52.0 [facility] Comment on above: Performed By: #### L [id number] ####Occupancy Specialist: GATO GRAY ([phone])[facility])[address] [place] [address] Hemoglobin (Bld) [Mass/Vol] 10.7 g/dL Low 13.0-18.0 [facility] Comment on above: Performed By: #### L [id number] ####Occupancy Specialist: GATO GRAY ([phone])[facility])[address] [place] [address] MCH (RBC) [Entitic mass] 29.6 pg Normal 26.0-34.0 [facility] Comment on above: Performed By: #### L [id number] ####Occupancy Specialist: GATO GRAY ([phone])[facility] ([facility])[address] [place] [address] MCHC 32.8 % Normal 30.5-36.0 [facility] Comment on above: Performed By: #### L [id number] ####Occupancy Specialist: GATO GRAY ([phone])[facility] ([facility])[address] [place] [address] MCV (RBC) [Entitic vol] 90.1 fL Normal 77.0-99.0 S [facility] Comment on above: Performed By: #### L [id number] ####Occupancy Specialist: GATO GRAY ([phone])[facility] ([facility])[address] [place] [address] Platelet mean volume (Bld) [Entitic vol] 9.3 fL Normal 9.0-12.7 [facility] Comment on above: Performed By: #### L [id number] ####Occupancy Specialist: GATO GRAY ([phone])[facility])[address] Platelets (Bld) [#/Vol] 269 10*3/uL Normal 140-440 [facility] Comment on above: Performed By: #### L [id number] ####Occupancy Specialist: GATO GRAY ([phone])[facility])[address] [place] [address] RBC (Bld) [#/Vol] 3.62 10*6/uL Low 4.40-5.90 [facility] Comment on above: Performed By: #### L [id number] ####Occupancy Specialist: GATO GRAY ([phone])[facility])[address] [place] [address] WBC (Bld) [#/Vol] 7.9 10*3/uL Normal 3.6-10.7 [facility] Comment on above: Performed By: #### L [id number] ####Occupancy Specialist: GATO GRAY ([phone])[facility] ([facility])[address] [place] [address] CBC panel Auto (Bld)on 07-12 Erythrocyte distribution width (RBC) [Ratio] 14.2 % 11.5 - 15.0 % [facility] Hematocrit (Bld) [Volume fraction] 32.6 % Low 40.0 - 52.0 % [facility] Hemoglobin (Bld) [Mass/Vol] 10.7 g/dL Low 13.0 - 18.0 g/dL [facility] Interpretation and review of laboratory results Abnormal [facility] MCH (RBC) [Entitic mass] 29.6 pg 26.0 - 34.0 pg [facility] MCHC (RBC) [Mass/Vol] 32.8 % 30.5 - 36.0 % [facility] MCV (RBC) [Entitic vol] 90.1 fL 77.0 - 99.0 fL [facility] Platelet mean volume (Bld) [Entitic vol] 9.3 fL 9.0 - 12.7 fL [facility] Platelets (Bld) [#/Vol] 269 10*3/uL 140 - 440 10*3/uL [facility] RBC (Bld) [#/Vol] 3.62 10*6/uL Low 4.40 - 5.90 10*6/uL [facility] WBC (Bld) [#/Vol] 7.9 10*3/uL 3.6 - 10.7 10*3/uL [facility] Laboratory - Chemistry and C hemistry - challengeon 07-12-2024 Glucose [Mass/Vol] 167 mg/dL High 70 - 100 mg/dL [facility] Glucose [Mass/Vol] 198 mg/dL High 70 - 100 mg/dL [facility] Glucose [Mass/Vol] 149 mg/dL High 70 - 100 mg/dL [facility] - Microbiology an d Antimicrobial susceptibilityOrdered By: Mary Jo Ngo on 07-12-2024 Bacteria identified Aer cx Nom (Lower resp) Many respiratory yamilet present. [facility] No Panel Informationon 07-12 Interpretation and review of laboratory results Abnormal [facility] Performed by: [facility], [address] [place] [address] CLIA ID: [id number] [facility] Interpretation and review of laboratory results Abnormal [facility] Performed by: [facility], [address] [place] [address] CLIA ID: [id number] [facility] Interpretation and review of laboratory results Abnormal [facility] Performed by: [facility], [address] [place] [address] CLIA ID: [id number] [facility] Progress Noteon 07-12-2024 Progress Note Nutrition update completed. Chart reviewed. Patient to be monitored and followed by the diet records technician. CODY Mitchell Normal [facility] Progress Note PHYSICAL THERAPY [facility] Treatment Note Name/MRN: Avery Vasquez ([id number]) Date of : 1950 Age: 74 y.o. Room/Bed: W3-327/W3-327 B Discharge Recommendation: Home with assist PRN, Home with Home health PT Equipment Needed: No Prior Level of Function Prior Level of ADL Function: Independent Prior Level of Mobility: Independent; Device: Straight Cane Prior Level of Transfers: Independent Assessment Pt mod assist for transfer from lower surface. Pt has lift chair at home and it sits higher than recliner chair in pt room. Built chair up with waffle cushion and blankets, pt able to progress to min assist. SBA for gait. No LOB or c/o dizziness. Occasional cues for NWB RUE. Adjusted sling for better fit. Rec home with assist and home PT upon discharge. Subjective Pt in bed chair, agreeable to PT. States he had a rough night. Wants to go home. Pain: Arndt-Cuellar Pain Ratin = Hurts even more Pain Location: RUE Medical Precautions: No active isolations Proper PPE donned/doffed in accordance with facility standards. Fall Risk: Mcguire Fall Risk Score: 85 (High Risk) Precautions/Restrictions: Braces or Orthoses: sling R UE Right UE Weight Bearing: Non-Weight Bearing Lines/Drains/Airways: ICU telemetry, Fall Precautions Overall Cognitive Status: WNL Overall Orientation Status: Oriented x4 Family/Caregiver Present: none Objective Transfers/Mobility Sit to stand: Mod Assist Stand to sit: SBA X 3 reps; chair x2 and toilet. 1st trial with chair pt mod assist. Higher surface (toilet and chair built up pt able to progress to min/SBA). Occasional cues for NWB RUE. Device(s) used: Straight Cane Ambulation Ambulation 1 Assistive device(s) used: Straight Cane Assist level: SBA Distance (ft): 50ft +30ft Quality of gait: slow josh Ambulation 2 Assistive device(s) used: Straight Cane Assist level: SBA Distance (ft): 25ft Quality of gait: slow josh Balance During Session: Posture: standing with cane, no c/o dizziness or LOB, SBA. Dynamic standing for hand hygiene, SBA. Plan Continue acute PT per plan of care. Safety/Education Safety Safety Devices in place: call light within reach, left in chair, gait belt, and no alarms engaged upon entry Restraints: No Education Education Given To: patient Education Provided: PT Goals, Gait Training, Plan of Care, Transfer Training, Fall Prevention Education, Discharge Recommendations, and Benefits of Increasing Activity Education Method: Verbal Barriers to Learning: None Education Outcome: Verbalized Understanding Outcome Measures AM-PAC AM-PAC Inpatient Mobility Raw Score (No Stairs) : 15 JH-HLM JH-HLM Score: Walked 25 ft or more (i.e. walked outside of room) Goals Patient Stated Goal: to go home Encounter Problems Encounter Problems (Active) Mobility Patient will ambulate 100 feet with supervision and straight cane in order to improve safety and independence with mobility. (Progressing) Start: 07/09/24 Expected End: 08/06/24 Patient will ascend and descend entry stairs with least restrictive device and supervision in order to safely negotiate home. (Not Addressed) Start: 07/09/24 Expected End: 08/06/24 Pain - Adult Transfers Patient will perform bed mobility with supervision in order to improve independence and prepare for out of bed mobility. (Not Addressed) Start: 07/09/24 Expected End: 08/06/24 Patient will complete sit to stand transfer with supervision to straight cane in order to improve safety and prepare for out of bed mobility. (Progressing) Start: 07/09/24 Expected End: 08/06/24 Therapy Time Individual Co-treatment Time In 906 Time Out 0943 Minutes 36 Timed Code Treatment Minutes: 36 Minutes (gait; fa) Katina Prather [facility] Progress Note ------ -- Attestation signed by Dale Biswas MD at 07/17/2024 6:26 PM ~~~~~~~~~~~~~~~~~~~~~~~~~~ ~~~~~~~~~~~~~~~~~~~~~~~~~~ ~~~~~~~~~ ATTENDING ADDENDUM Patient Active Problem List Diagnosis Intracranial bleeding (HCC) Closed fracture of multiple ribs of right side with routine healing Traumatic closed fracture of distal clavicle with minimal displacement, right, initial encounter Acute pulmonary embolism without acute cor pulmonale, unspecified pulmonary embolism type (HCC) I have personally performed a face to face diagnostic evaluation on this patient. I have reviewed and agree with the care plan as documented above by my CREEL CLERK/JULIANNEC. I personally discussed the review of systems and interviewed the patient along with performing a physical examination. In addition, I discussed the patient's condition and treatment options with him/her when possible. All of the patient's questions were answered and family updated when appropriate and possible. I I performed a physical exam and ROS on the same date of service as above. My findings agree with the above note except for any details corrected below. Chief Complaint: -Wants to go home Injuries/problem list: -Traumatic brain injury -Syncope -Bilateral pulmonary embolisms -Hyperlipidemia -Diabetes -Bacteroides bacteremia -Hypertension -Acute pain -Urinary retention Surgeries: -None Management/Plan: Neuro: Traumatic brain injury -Repeat head CT is stable -No intervention Acute pain -Scheduled tylenol, PRN oxycodone Cardiac: Bilateral segmental pulmonary embolisms -Okay for Eliquis --> started -Stable on RA -No hemodynamic compromise -Did have syncopal event --> EF of 63% Hx of HTN -Valsartan Hx of HPL -Home atorvastatin Pulm: -Stable on RA -Pulmonary toilet -IS FEN/GI: -Change to carb control diet -HLIV Constipation -Bowel regimen with miralax/senna -Has had recorded BM over last 24 hours : Urinary retention -Cr 0.84<0.74 -Voiding -Flomax ID: Bacteroides bacteremia -Appreciate ID consultation -Currently on zosyn -Will plan to transition to PO -BC from 07/11 pending -WBC 7.9<6.8 Heme: -Hb 10.7<10.6 -DC CBC Endo: Hx of DM -BGT 131-311 -Change to carb control diet -Home PO diabetes medications ordered -SSI ordered -Required 6U in last 24 hours MSK: -PT/OT --> cleared for home Prophylaxis: -Eliquis Restraints: -None Dispo: -Floor, pending ID recommendations Total Care Time throughout the day today was >= 35 minutes (including chart/data review/analysis care coordination, and [id number] encounter), and was spent discussing/counseling the patient/family regarding the diagnosis, care plan, and importance of compliance with the treatment plan for Avery Vasquez. I examined the patient independently. I reviewed relevant data myself and may have also done so in the context of team rounds. A full chart review was performed. Level of Medical Decision Making: []High [x]Moderate []Low Complexity: []Acute or chronic illness/injury posing a threat to life or bodily function without treatment (HIGH) []Chronic illness with severe exacerbation, progression, or side effect of treatment (HIGH) []Chronic illness with mild to moderate exacerbation, progression, or side effect of treatment (MOD) []Previously undiagnosed (new) problem with uncertain prognosis (MOD) []Acute illness with systemic symptoms (MOD) [x]Acute, complicated injury (MOD) []Multiple stable chronic illnesses (MOD) Risk: []Parental controlled substances (HIGH) []Decision resuscitate de-escalate care because of poor prognosis (HIGH) []Decision regarding elective major surgery with identified patient or procedure risk factors (HIGH) []Decision regarding emergency major surgery (HIGH) []Drug or therapy requiring intensive monitoring (HIGH) []Requires close neuro-critical care monitoring due to risk of neurological deterioration (HIGH) [x]Prescription drug management (MOD) []Decision regarding minor surgery with identified patient or procedure risk factors (MOD) []Decision regarding elective major surgery without limited identified patient or procedure risk factors (MOD) []Diagnosis or treatment significant limited by social determinants of health (MOD) Personally Reviewed/Independently interpreted patient's: [x]Epic notes []Radiology studies [x]Labs []EKG []Ordering tests []Other Discussed/ With: [x]Patient/Family [x]RN [x]Consultants []Primary Team [x]SW/TCC []Other Time was spent: -Reviewing the medical record, including recent tests and results -Ordering prescription medications/tests and procedures -Communicating results to the patient/family/caregiver -Counseling/educating the patient/family/caregiver -Documenting clinical information in the patient's electronic record -Co-ord (more content not included)... Normal [facility] BASIC METABOLIC PANELon 11-0 Anion gap [Moles/Vol] 7 mmol/L Normal 3-13 [facility] Comment on above: Performed By: #### L AB15 ####Occupancy Specialist: GATO GRAY ([phone])[facility] ([facility] Calcium [Mass/Vol] 9.5 mg/dL Normal 8.4-10.4 [facility] Comment on above: Performed By: #### L AB15 ####Occupancy Specialist: GATO GRAY ([phone])[facility] ([facility])[address] [place] [address] Chloride [Moles/Vol] 108 mmol/L High 98-107 [facility] Comment on above: Performed By: #### L AB15 ####Occupancy Specialist: GATO GRAY ([phone])[facility] ([facility])[address] [place] [address] CO2 [Moles/Vol] 20 mmol/L Low 22-30 [facility] Comment on above: Performed By: #### L AB15 ####Occupancy Specialist: GATO GRAY ([phone])[facility])[address] [place] [address] Creatinine [Mass/Vol] 0.74 mg/dL Normal 0.66-1.25 [facility] Comment on above: Performed By: #### L AB15 ####Occupancy Specialist: GATO GRAY ([phone])[facility])[address] [place] [address] GLOMERULAR FILTRATION RATE ML/MIN/1.73 SQ M.PREDICTED >90.0 Normal >60.0 [facility] Comment on above: Result Comment: Calc ulation based on the Chronic Kidney Disease Epidemiology Collaboration (CKD-EPI) equation refit without adjustment for race Performed By: #### L AB15 ####Occupancy Specialist: GATO GRAY ([phone])[facility] ([facility])[address] [place] [address] [place] Glucose [Mass/Vol] 149 mg/dL High 70-100 [facility] Comment on above: Performed By: #### L AB15 ####Occupancy Specialist: GATO GRAY ([phone])[facility])[address] [place] [address] Potassium [Moles/Vol] 4.1 mmol/L Normal 3.5-5.1 [facility] Comment on above: Performed By: #### L AB15 ####Occupancy Specialist: GATO GRAY ([phone])[facility] [place] [address] Sodium [Moles/Vol] 134 mmol/L Low 135-145 [facility] Comment on above: Performed By: #### L AB15 ####Occupancy Specialist: GATO GRAY ([phone])[facility])[address] [place] [address] Urea nitrogen [Mass/Vol] 16 mg/dL Normal 9-20 [facility] Comment on above: Performed By: #### L AB15 ####Occupancy Specialist: GATO GRAY ([phone])[facility])[address] [place] [address] BLOOD CULTUREon 07-11-2024 Bacteria identified Cx Nom (Bld) BLOOD CULTURE Reference No growth at 5 days ORDER COMMENTS: Blood Collection Site: Left Antecubital [ S = SUSCEPTIBLE R = RESISTANT I = INTERMEDIATE S-DD = Susceptible-dose dependent NS = Non-susceptible NO = No Interpretation ] Normal [facility] Comment on above: Performed By: #### L [id number] ####Occupancy Specialist: GATO GRAY ([phone])[facility])[address] [place] [address] Bacteria identified Cx Nom (Bld) BLOOD CULTURE Reference No growth at 5 days ORDER COMMENTS: Blood Collection Site: Right Antecubital [ S = SUSCEPTIBLE R = RESISTANT I = INTERMEDIATE S-DD = Susceptible-dose dependent NS = Non-susceptible NO = No Interpretation ] Normal [facility] Comment on above: Performed By: #### L [id number] ####Occupancy Specialist: GATO GARY ([phone])[facility])[address] [place] [address] Basic metabolic 1998 panelon 07-11-2024 Anion gap [Moles/Vol] 7 mmol/L 3 - 13 mmol/L [facility] Calcium [Mass/Vol] 9.5 mg/dL 8.4 - 10. 4 mg/dL [facility] Chloride [Moles/Vol] 108 mmol/L High 98 - 10 7 mmol/L [facility] CO2 [Moles/Vol] 20 mmol/L Low 22 - 30 mmol/L [facility] Creatinine [Mass/Vol] 0.74 mg/dL 0.66 - 1.25 mg/dL [facility] GFR/1.73 sq M.predicted (S/P/Bld) [Vol rate/Area] - PINF [facility] Comment on above: Calculation based on the Chronic Kidney Disease Epidemiology Collaboration (CKD-EPI) equation refit without adjustment for race Glucose [Mass/Vol] 149 mg/dL High 70 - 100 mg/dL [facility] Interpretation and review of laboratory results Abnormal [facility] Potassium [Moles/Vol] 4.1 mmol/L 3.5 - 5.1 mmol/L [facility] Sodium [Moles/Vol] 134 mmol/L Low 135 - 145 mmol/L [facility] Urea nitrogen [Mass/Vol] 16 mg/dL 9 - 20 mg/dL [facility] CBC (HEMOGRAM)on 07-11-2024 Erythrocyte distribution width (RBC) [Ratio] 14.2 % Normal 11.5-15.0 [facility] Comment on above: Performed By: #### L [id number] ####Occupancy Specialist: GATO GRAY ([phone])[address] Hematocrit (Bld) [Volume fraction] 32.2 % Low 40.0-52.0 [facility] Comment on above: Performed By: #### L [id number] ####Occupancy Specialist: GATO GRAY ([phone])[address] Hemoglobin (Bld) [Mass/Vol] 10.6 g/dL Low 13.0-18.0 [facility] Comment on above: Performed By: #### L [id number] ####Occupancy Specialist: GATO GRAY ([phone])[facility])[address] [place] [address] MCH (RBC) [Entitic mass] 29.4 pg Normal 26.0-34.0 [facility] Comment on above: Performed By: #### L [id number] ####Occupancy Specialist: GATO GRAY ([phone])[facility])[address] [place] [address] MCHC 32.9 % Normal 30.5-36.0 [facility] Comment on above: Performed By: #### L [id number] ####Occupancy Specialist: GATO GRAY ([phone])[facility] ([facility])[address] [place] [address] MCV (RBC) [Entitic vol] 89.2 fL Normal 77.0-99.0 [facility] Comment on above: Performed By: #### L [id number] ####Occupancy Specialist: GATO GRAY ([phone])[facility] ([facility])[address] [place] [address] Platelet mean volume (Bld) [Entitic vol] 9.2 fL Normal 9.0-12.7 [facility] Comment on above: Performed By: #### L [id number] ####Occupancy Specialist: GATO GRAY ([phone])[facility] ([facility])[address] [place] [address] Platelets (Bld) [#/Vol] 224 10*3/uL Normal 140-440 [facility] Comment on above: Performed By: #### L [id number] ####Occupancy Specialist: GATO GRAY ([phone])[facility] ([facility])[address] [place] [address] RBC (Bld) [#/Vol] 3.61 10*6/uL Low 4.40-5.90 [facility] Comment on above: Performed By: #### L [id number] ####Occupancy Specialist: GATO GRAY ([phone])[facility] ([facility])[address] [place] [address] WBC (Bld) [#/Vol] 6.8 10*3/uL Normal 3.6-10.7 [facility] Comment on above: Performed By: #### L [id number] ####Occupancy Specialist: GATO GRAY ([phone])[facility])[address] [place] [address] CBC panel Auto (Bld)on 07-11 Erythrocyte distribution width (RBC) [Ratio] 14.2 % 11.5 - 15.0 % [facility] Hematocrit (Bld) [Volume fraction] 32.2 % Low 40.0 - 52.0 % [facility] Hemoglobin (Bld) [Mass/Vol] 10.6 g/dL Low 13.0 - 18.0 g/dL [facility] Interpretation and review of laboratory results Abnormal [facility] MCH (RBC) [Entitic mass] 29.4 pg 26.0 - 34.0 pg [facility] MCHC (RBC) [Mass/Vol] 32.9 % 30.5 - 36.0 % [facility] MCV (RBC) [Entitic vol] 89.2 fL 77.0 - 99.0 fL [facility] Platelet mean volume (Bld) [Entitic vol] 9.2 fL 9.0 - 12.7 fL [facility] Platelets (Bld) [#/Vol] 224 10*3/uL 140 - 440 10*3/uL [facility] RBC (Bld) [#/Vol] 3.61 10*6/uL Low 4.40 - 5.90 10*6/uL [facility] WBC (Bld) [#/Vol] 6.8 10*3/uL 3.6 - 10.7 10*3/uL [facility] Laboratory - Chemistry and C hemistry - challengeon 07-11-2024 Glucose [Mass/Vol] 183 mg/dL High 70 - 100 mg/dL [facility] Glucose [Mass/Vol] 131 mg/dL High 70 - 100 mg/dL [facility] Glucose [Mass/Vol] 209 mg/dL High 70 - 100 mg/dL [facility] Glucose [Mass/Vol] 311 mg/dL High 70 - 100 mg/dL [facility] No Panel Informationon 07-11 Interpretation and review of laboratory results Abnormal [facility]formed by: [facility], [address] [place] [id number] CLIA ID: [id number] [facility] Interpretation and review of laboratory results Abnormal [facility] Performed by: [facility], [address] [place] [id number] CLIA ID: [id number] [facility] Interpretation and review of laboratory results Abnormal [facility] Performed by: [facility], [address] [place] [id number] CLIA ID: [id number] [facility] Interpretation and review of laboratory results Abnormal [facility] Performed by: [facility], [address] [place] [address] CLIA ID: [id number] [facility] Progress Noteon 07-11-2024 Progress Note PHYSICAL THERAPY [facility] Treatment Note Name/MRN: Avery Vasquez ([id number]) Date of : 1950 Age: 74 y.o. Room/Bed: T2-/T2 A Discharge Recommendation: Home with assist PRN, Home with Home health PT Equipment Needed: No Prior Level of Function Prior Level of ADL Function: Independent Prior Level of Mobility: Independent; Device: Straight Cane Prior Level of Transfers: Independent Assessment Pt min assist to stand by assist for transfers. Pt stand by assist to contact guard assist for ambulation and steps. Recommend home with assist and home PT. Subjective Pt reclined in chair. Agreeable to PT. RN okayed PT. Pain: ribs and clavicle Medical Precautions: No active isolations Proper PPE donned/doffed in accordance with facility standards. Fall Risk: [place] Fall Risk Score: 70 (High Risk) Precautions/Restrictions: Braces or Orthoses: sling R UE Right UE Weight Bearing: Non-Weight Bearing Lines/Drains/Airways: ICU telemetry, Fall Precautions Overall Cognitive Status: Exceptions - Arousal/alertness: appropriate responses to stimuli - Following commands: follows one step commands consistently - Safety judgement: + chair alarm Overall Orientation Status: Oriented to Person Family/Caregiver Present: none Objective Transfers/Mobility Sit to stand: Min Assist Stand to sit: SBA Min assist for 1st sit to stand from recliner. Stand by assist for 2nd and 3rd stance from recliner Device(s) used: Straight Cane Ambulation Ambulation 1 Assistive device(s) used: Straight Cane Assist level: SBA, Contact Guard Distance (ft): 220ft Quality of gait: flexed posture, decreased step length, slow josh, steadiness improves with gait distance Balance During Session: Static stance with cane with contact guard assist to stand by assist. Stairs Stairs 1 Assistive device(s) used: None Assist level: SBA, Contact Guard # of steps: 6 Rails: left Additional factors: non-reciprocal going up, non-reciprocal going down Plan Continue acute PT per plan of care. Safety/Education Safety Safety Devices in place: call light within reach, left in chair, chair alarm in place, and gait belt Restraints: No Education Education Given To: patient Education Provided: PT Role and Discharge Recommendations Education Method: Verbal Barriers to Learning: Education Outcome: Outcome Measures AM-PAC AM-PAC Inpatient Mobility Raw Score : 20 AM-PAC Inpatient Mobility Raw Score (No Stairs) : 16 [facility] Score: Walked 25 ft or more (i.e. walked outside of room) Goals Patient Stated Goal: to go home Encounter Problems Encounter Problems (Active) Mobility Patient will ambulate 100 feet with supervision and straight cane in order to improve safety and independence with mobility. (Progressing) Start: 07/09/24 Expected End: 08/06/24 Patient will ascend and descend entry stairs with least restrictive device and supervision in order to safely negotiate home. (Progressing) Start: 07/09/24 Expected End: 08/06/24 Pain - Adult Transfers Patient will perform bed mobility with supervision in order to improve independence and prepare for out of bed mobility. (Not Addressed) Start: 07/09/24 Expected End: 08/06/24 Patient will complete sit to stand transfer with supervision to straight cane in order to improve safety and prepare for out of bed mobility. (Progressing) Start: 07/09/24 Expected End: 08/06/24 Therapy Time Individual Co-treatment Time In 0842 Time Out 0910 Minutes 28 DEBRA Morales PT [facility] Progress Note ------ -- Attestation signed by Ashli Luna MD at 07/13/2024 9:15 PM ATTENDING ADDENDUM Patient Active Problem List Diagnosis Intracranial bleeding (HCC) Closed fracture of multiple ribs of right side with routine healing Traumatic closed fracture of distal clavicle with minimal displacement, right, initial encounter Acute pulmonary embolism without acute cor pulmonale, unspecified pulmonary embolism type (HCC) I personally supervised the resident/CREEL CLERK/JOSE DE JESUS in the evaluation and development of a treatment plan for this patient on the same day of service as above. I personally discussed the review of systems and interviewed the patient along with performing a physical examination. I reviewed the recent events, imaging, labs, vital signs. In addition, I discussed the patient's condition and treatment options with him/her when possible. I have also reviewed and agree with the past medical, family, and social history unless otherwise noted. All of the patient's questions were answered and family updated when appropriate and possible. ASSESSMENT: 74M recently briefly admitted (06/26 - 06/27) after a traumatic encounter with a cow resulting in R SAH, multiple right sided rib fractures and R clavicle fracture, who now presents with weakness and syncopal fall, resulting in new 3 mm focal SDH posterior parietal lobe, and bilateral segmental PEs. Blood cultures growing Bacteroides pyogenes, no clear source -> on Zosyn, ID consulted Otherwise clinically doing well. PLAN: 1. Neuro: Previous traumatic R SAH sylvian fissure - resolved. New parietal SDH - stable on CTH 07/08 on heparin 2. CV: HDS stable, no acute issues 3. Pulm: Bilateral segmental PEs, provoked by trauma -> Eliquis x 3 months - H. Influenza + on sputum, clinically insignificant, respiratory insufficiency resolved, on room air. 4. GI: regular diet, constipation resolved 5. Renal: normal renal function, voiding 6. Hem: Acute blood loss anemia, stable. PLT wnl 7. Endo: Type II DM with hyperglycemia (on multiple oral hypoglycemics at home) -> HDISS, restart home DM meds 8. ID: Bacteremia 2/2 Bacteroides pyogenes, unclear etiology, suspected skin wound source from original trauma - 07/10 Sputum Cx: H. influenza - 07/08 Blood Cx: showing Bacteroides pyogenes -> ID consulted, repeat Blood cultures today to ensure eradication - 07/08 Resp PCR nose swab: no pathogens detected - 07/08 UA negative 9. Lines: PIVs 10. Proph: Eliquis for PE, no indications for GI proph 11. MSK: PT/OT recommending Home with assist PRN, Home with Home health PT 12. Dispo: medically stable for transfer to the floor with neuro checks Level of Medical Decision Making: risk of morbidity from additional diagnostic testing or treatment due to bilateral PE requiring systemic [x]High []Moderate []Low Complexity: Acute or chronic illness posing a threat to life (HIGH) Risk: Drug or therapy requiring intensive monitoring (HIGH) Personally Reviewed/Independently interpreted patient's: [x]Epic notes []Radiology studies [x]Labs []EKG []Ordering tests []Other Discussed/ With: [x]Patient/Family [x]RN []Consultants []SW/TCC []Other I spent total time of 50 minutes reviewing previous notes, test results, and face to face with Avery Vasquez discussing the diagnosis and importance of compliance with the treatment plan as well as documenting on the day of the visit. Ashli Luna MD Division of Trauma Department of Surgery [facility] Pager: [phone] -- Daily Trauma Progress Note Resident 07/11/2024 6:07 AM Admit Date: 07/06/2024 Post Trauma Day 07/06/2024 HPI: 74 y/o male with a PMH of DM, HTN, HLD, who presented on 07/06 for syncopal event, recently admitted 06/26-06/27 after being struck by a cow. 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 Prior to arrival he had a syncopal event at home and was found to have bilateral segmental PEs. He was transferred here from [facility] for further management. INJURIES: -Bilateral segmental PEs -Previous traumatic R SAH sylvian fissure, focal hemorrhagic contusion superior aspect of the right parietal lobe and previous aspect of the posterior right parietal lobe. Nearly removed with 3mm focal SDH of posterior parietal lobe -Right occipital scalp hematoma -Acute R clavicle fracture PROCEDURES: NA CHIEF COMPLAINT: Syncopal event PREVIOUS 24 HOUR EVENTS: No acute events overnight. Currently on RA. Consults: IP CONSULT TO PULMONOLOGY IP CONSULT TO NEUROLOGY IP CONSULT TO NEUROSURGERY IP CONSULT TO ORTHOPAEDIC SURGERY IP CONSULT TO INFECTIOUS DISEASES IP CONSULT TO HOME CARE NEEDS MEDICATIONS: Current Fa (more content not included)... [facility] 30on 07-10-2024 Problem: Pain - Adul t Goal: Verbalizes/displays adequate comfort level or baseline comfort level Outcome: Progressing Problem: Safety - Adult Goal: Free from fall injury Outcome: Progressing Problem: Discharge Planning Goal: Discharge to home or other facility with appropriate resources Outcome: Progressing Problem: Chronic Conditions and Co-morbidities Goal: Patient's chronic conditions and co-morbidity symptoms are monitored and maintained or improved Outcome: Progressing Problem: Knowledge Deficit Goal: Patient/family/caregiver demonstrates understanding of disease process, treatment plan, medications, and discharge instructions Outcome: Progressing Problem: Potential for Compromised Skin Integrity Goal: Skin Integrity is Maintained or Improved Outcome: Progressing Goal: Nutritional status is improving Outcome: Progressing Normal [facility] [address] Transfer Med Reconciliation (resume home meds if able, convert to PO if able) Complete Antibiotics (name, indication, duration, convert to PO if able) Yes, addressed in today's progress note Steroid (indication, duration, convert to PO if able) None Anticipated [place] Medications (ICU initiated) or Dose Changes and Indication Yes, addressed in today's progress note Permanently Discontinued Home Medications and Reason for medication contraindication No Johnson Catheter (please remove if able. Note: place DC order) No Central Line (please remove if able. Note: place DC order) No Transfer Discussed with: ACS If additional questions for ICU team within 24 hours of ICU transfer, page for clarifications. [facility] 30 The patient is Moder ately Stable - Low risk of patient condition declining or worsening Problem: Pain - Adult Goal: Verbalizes/displays adequate comfort level or baseline comfort level Outcome: Progressing Problem: Safety - Adult Goal: Free from fall injury Outcome: Progressing Problem: Discharge Planning Goal: Discharge to home or other facility with appropriate resources Outcome: Progressing Problem: Chronic Conditions and Co-morbidities Goal: Patient's chronic conditions and co-morbidity symptoms are monitored and maintained or improved Outcome: Progressing Problem: Knowledge Deficit Goal: Patient/family/caregiver demonstrates understanding of disease process, treatment plan, medications, and discharge instructions Outcome: Progressing Problem: Potential for Compromised Skin Integrity Goal: Skin Integrity is Maintained or Improved Outcome: Progressing Goal: Nutritional status is improving Outcome: Progressing Problem: Urinary Incontinence Goal: Perineal skin integrity is maintained or improved Outcome: Progressing Normal [facility] [id number] 07-10-2024 [id number] Patient is currently active with [facility]. The patients current certification period will on 08/26/24. The patient is currently receiving SN/PT services through the agency. 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 [facility] [id number] 07-10-2024 [id number] Patient Choice Patient Name: AVERY VASQUEZ Date of : 1950 [facility] BASIC METABOLIC PANELon Anion gap [Moles/Vol] 6 mmol/L Normal 3-13 [facility] Comment on above: Performed By: #### L AB15 ####Occupancy Specialist: GATO GRAY ([phone])[address] Calcium [Mass/Vol] 9.3 mg/dL Normal 8.4-10.4 [facility] Comment on above: Performed By: #### L AB15 ####Occupancy Specialist: GATO GRAY ([phone])[facility])[address] [place] [address] Chloride [Moles/Vol] 109 mmol/L High 98-107 [facility] Comment on above: Performed By: #### L AB15 ####Occupancy Specialist: GATO GRAY ([phone])[address] CO2 [Moles/Vol] 20 mmol/L Low 22-30 [facility] Comment on above: Performed By: #### L AB15 ####Occupancy Specialist: GATO [phone])[address] [place] [address] [place] Creatinine [Mass/Vol] 0.62 mg/dL Low 0.66-1.25 [facility] Comment on above: Performed By: #### L AB15 ####Occupancy Specialist: GATO GRAY ([phone])[facility])[address] [place] [address] GLOMERULAR FILTRATION RATE ML/MIN/1.73 SQ M.PREDICTED >90.0 Normal >60.0 [facility] Comment on above: Result Comment: Calc ulation based on the Chronic Kidney Disease Epidemiology Collaboration (CKD-EPI) equation refit without adjustment for race Performed By: #### L AB15 ####Occupancy Specialist: GATO GRAY ([phone])[facility])[address] [place] [address] Glucose [Mass/Vol] 131 mg/dL High 70-100 [facility] Comment on above: Performed By: #### L AB15 ####Occupancy Specialist: GATO GRAY ([phone])[facility])[address] [place] [address] Potassium [Moles/Vol] 4.3 mmol/L Normal 3.5-5.1 [facility] Comment on above: Performed By: #### L AB15 ####Occupancy Specialist: GATO GRAY ([phone])[facility])[address] [place] [address] Sodium [Moles/Vol] 135 mmol/L Normal 135-145 [facility] Comment on above: Performed By: #### L AB15 ####Occupancy Specialist: GATO GRAY ([phone])[facility])[address] [place] [address] [place] Urea nitrogen [Mass/Vol] 17 mg/dL Normal 9-20 [facility] Comment on above: Performed By: #### L AB15 ####Occupancy Specialist: GATO GRAY ([phone])[facility] ([facility])[address] [place] [address] Basic metabolic 1998 panelon 11-05-2024 Anion gap [Moles/Vol] 6 mmol/L 3 - 13 mmol/L [facility] Calcium [Mass/Vol] 9.3 mg/dL 8.4 - 10. 4 mg/dL [facility] Chloride [Moles/Vol] 109 mmol/L High 98 - 10 7 mmol/L [facility] CO2 [Moles/Vol] 20 mmol/L Low 22 - 30 mmol/L [facility] Creatinine [Mass/Vol] 0.62 mg/dL Low 0.66 - 1.25 mg/dL [facility] GFR/1.73 sq M.predicted (S/P/Bld) [Vol rate/Area] - PINF [facility] Comment on above: Calculation based on the Chronic Kidney Disease Epidemiology Collaboration (CKD-EPI) equation refit without adjustment for race Glucose [Mass/Vol] 131 mg/dL High 70 - 100 mg/dL [facility] Interpretation and review of laboratory results Abnormal [facility] Potassium [Moles/Vol] 4.3 mmol/L 3.5 - 5.1 mmol/L [facility] Sodium [Moles/Vol] 135 mmol/L 135 - 145 mmol/L [facility] Urea nitrogen [Mass/Vol] 17 mg/dL 9 - 20 mg/dL [facility] CBC (HEMOGRAM)on 07-10-2024 Erythrocyte distribution width (RBC) [Ratio] 14.4 % Normal 11.5-15.0 [facility] Comment on above: Performed By: #### L [id number] ####Occupancy Specialist: GATO [phone])[address] Hematocrit (Bld) [Volume fraction] 31.3 % Low 40.0-52.0 [facility] Comment on above: Performed By: #### L [id number] ####Occupancy Specialist: GATO [phone])[address] Hemoglobin (Bld) [Mass/Vol] 10.2 g/dL Low 13.0-18.0 [facility] Comment on above: Performed By: #### L [id number] ####Occupancy Specialist: GATO [id number])[facility] [place] [address] MCH (RBC) [Entitic mass] 28.9 pg Normal 26.0-34.0 [facility] Comment on above: Performed By: #### L [id number] ####Occupancy Specialist: GATO GRAY ([phone])[facility] ([facility])[address] [place] [address] MCHC 32.6 % Normal 30.5-36.0 [facility] Comment on above: Performed By: #### L [id number] ####Occupancy Specialist: GATO GRAY ([phone])[facility] ([facility])[address] [place] [address] MCV (RBC) [Entitic vol] 88.7 fL Normal 77.0-99.0 S [facility] Comment on above: Performed By: #### L [id number] ####Occupancy Specialist: GATO GRAY ([phone])[facility] ([facility])[address] [place] [address] Platelet mean volume (Bld) [Entitic vol] 9.7 fL Normal 9.0-12.7 [facility] Comment on above: Performed By: #### L [id number] ####Occupancy Specialist: GATO GRAY ([phone])[facility] ([facility])[address] [place] [address] Platelets (Bld) [#/Vol] 185 10*3/uL Normal 140-440 [facility] Comment on above: Performed By: #### L [id number] ####Occupancy Specialist: GATO GRAY ([phone])[facility] ([facility])[address] [place] [address] RBC (Bld) [#/Vol] 3.53 10*6/uL Low 4.40-5.90 [facility] Comment on above: Performed By: #### L [id number] ####Occupancy Specialist: GATO GRAY ([phone])[facility] ([facility])[address] [place] [address] WBC (Bld) [#/Vol] 6.1 10*3/uL Normal 3.6-10.7 [facility] Comment on above: Performed By: #### L [id number] ####Occupancy Specialist: GATO GRAY ([phone])[facility] [place] [address] CBC panel Auto (Bld)on 07-10 Erythrocyte distribution width (RBC) [Ratio] 14.4 % 11.5 - 15.0 % [facility] Hematocrit (Bld) [Volume fraction] 31.3 % Low 40.0 - 52.0 % [facility] Hemoglobin (Bld) [Mass/Vol] 10.2 g/dL Low 13.0 - 18.0 g/dL [facility] Interpretation and review of laboratory results Abnormal [facility] MCH (RBC) [Entitic mass] 28.9 pg 26.0 - 34.0 pg [facility] MCHC (RBC) [Mass/Vol] 32.6 % 30.5 - 36.0 % [facility] MCV (RBC) [Entitic vol] 88.7 fL 77.0 - 99.0 fL [facility] Platelet mean volume (Bld) [Entitic vol] 9.7 fL 9.0 - 12.7 fL [facility] Platelets (Bld) [#/Vol] 185 10*3/uL 140 - 440 10*3/uL [facility] RBC (Bld) [#/Vol] 3.53 10*6/uL Low 4.40 - 5.90 10*6/uL [facility] WBC (Bld) [#/Vol] 6.1 10*3/uL 3.6 - 10.7 10*3/uL [facility] COMPLETE URINALYSISon 2023 BILIRUBIN, TOTAL PRESENCE IN URINE Negative Normal Negative [facility] Comment on above: Performed By: #### L [id number] ####Occupancy Specialist: GATO GRAY ([phone])[facility] [place] [address] Clarity (U) Clear Normal Clear [facility] Comment on above: Performed By: #### L [id number] ####Occupancy Specialist: GATO GRAY ([phone])[facility])[address] [place] [address] Color (U) Light Yellow Normal Lt. Yellow [facility] Comment on above: Performed By: #### L [id number] ####Occupancy Specialist: GATO GRAY ([phone])[facility])[address] [place] [address] Glucose (U) [Mass/Vol] 30 mg/dL Normal Bindu l (<70) [facility] Comment on above: Performed By: #### L [id number] ####Occupancy Specialist: GATO GRAY ([phone])[facility])[address] [place] [address] HEMOGLOBIN PRESENCE IN URINE Negative Normal Negative [facility] Comment on above: Performed By: #### L [id number] ####Occupancy Specialist: GATO GRAY ([phone])[facility])[address] [place] [address] Ketones Ql (U) Negative Normal Negative [facility] Comment on above: Performed By: #### L [id number] ####Occupancy Specialist: GATO GRAY ([phone])[facility])[address] [place] [address] LEUKOCYTE ESTERASE PRESENCE IN URINE BY TEST STRIP Negative Normal Negative [facility] Comment on above: Performed By: #### L [id number] ####Occupancy Specialist: GATO GRAY ([phone])[facility] ([facility])[address] [place] [address] NITRITE PRESENCE IN URINE Negative Normal Negative [facility] Comment on above: Performed By: #### L [id number] ####Occupancy Specialist: GATO GRAY ([phone])[facility])[address] [place] [address] pH (U) 6.0 [pH] Normal 5.0-8.0 [facility] Comment on above: Performed By: #### L [id number] ####Occupancy Specialist: GATO GRAY ([phone])[facility])[address] [place] [address] Protein (U) [Mass/Vol] Negative Normal Negative [facility] Comment on above: Performed By: #### L [id number] ####Occupancy Specialist: GATO GRAY ([phone])[facility] ([facility])[address] [place] [address] Specific gravity (U) [Rel density] 1.012 Normal 1.005-1.03 0 [facility] Comment on above: Performed By: #### L [id number] ####Occupancy Specialist: GATO GRAY ([phone])[facility] ([facility])[address] [place] [address] UROBILINOGEN (MG/DL) IN URINE Normal Normal Normal (0-1) [facility] Comment on above: Performed By: #### L [id number] ####Occupancy Specialist: GATO GRAY ([phone])[facility] ([facility])[address] [place] [address] Consulton 07-10-2024 Consult [facility] - Infectious Diseases Attending Consult Note Reason for Consult: GNR Bacteremia History of Present Illness: 74 M with recent traumatic injury to chest and legs( R clavicular fracture) and SAH [place]. Admitted for short period, conservatively managed, and did well at first. By 07/06 though, generalized weakness, malaise, and chills developed. He tried to take a shower, but almost passed out and legs gave out. EMS brought patient to OSH, where he was diagnosed with bilateral PE, and transferred to [facility], febrile, and infectious workup done+ GNR BSI yesterday. ID consulted. He reported some N/V initially, but feesl better now. No diarrhea, constipation if eat all, and denies symptoms too. Denies CP or SOB. His bruised LLE is getting better already. Past Medical History: No past medical history on file. Past Surgical History: No past surgical history on file. Current Medications: Current Facility-Administered Medications Medication Dose Route Frequency Provider Last Rate Last Admin acetaminophen (Tylenol) tablet 1,000 mg 1,000 mg Oral q8h Serge Razo III, MD 1,000 mg at 07/10/24 0608 apixaban (Eliquis) tablet 5 mg 5 mg Oral BID Elsy Janene Diego, DO 5 mg at 07/10/24 0915 atorvastatin (Lipitor) tablet 10 mg 10 mg Oral Nightly Lenybrandee Hughes DO 10 mg at 07/09/24 2214 bisacodyl (Dulcolax) suppository 10 mg 10 mg Rectal Daily Elsy Diego DO dextrose 5 % infusion 100 mL/hr IntraVENous PRN Poncho Cortez MD dextrose 50 % solution 12.5 g 12.5 g IntraVENous PRN Poncho Crotez MD glucagon (human recombinant) injection 1 mg 1 mg IntraMUSCular PRN Poncho Cortez MD glucose oral gel 15 g 15 g Oral PRN Poncho Cortez MD hydrALAZINE (Apresoline) injection 10 mg 10 mg IntraVENous q4h PRN Lavern Estrada MD Insulin Lispro (Humalog) injection 0-12 Units 0-12 Units SubCUTAneous TID WC Poncho Cortez MD 6 Units at 07/10/24 0916 And Insulin Lispro (Humalog) injection 0-12 Units 0-12 Units SubCUTAneous Nightly Poncho Cortez MD 4 Units at 07/09/24 2213 ipratropium-albuterol (Duo-Neb) 0.5-2.5 mg/3 mL nebulizer solution 3 mL 3 mL Nebulization 4x daily PRN Diana Stovall MD labetalol (Normodyne,Trandate) injection 10 mg 10 mg IntraVENous q4h PRN Lavern Estrada MD 10 mg at 07/07/24 2040 mupirocin (Bactroban) 2 % ointment 1 Application 1 Application Nasal BID Poncho Cortez MD 1 Application at 07/10/24 0919 naloxone (Narcan) injection 0.4 mg 0.4 mg IntraVENous q5 min PRN Diana Stovall MD ondansetron ODT (Zofran-ODT) disintegrating tablet 4 mg 4 mg Oral q8h PRN Poncho Cortez MD Or ondansetron (Zofran) injection 4 mg 4 mg IntraVENous q6h PRN Poncho Cortez MD 4 mg at 07/07/24 1835 oxyCODONE (Roxicodone) immediate release tablet 5 mg 5 mg Oral q4h PRN Poncho Cortez MD 5 mg at 07/07/24 1257 Or oxyCODONE (Roxicodone) immediate release tablet 10 mg 10 mg Oral q4h PRN Poncho Cortez MD piperacillin-tazobactam (Zosyn) IVPB 4,500 mg 4,500 mg IntraVENous q6h Elsy Diego, DO Stopped at 07/10/24 0940 polyethylene glycol (PEG) 3350 (Miralax) packet 17 g 17 g Oral Daily Elsy Diego, DO 17 g at 07/10/24 0914 sennosides (Senokot) tablet 17.2 mg 2 tablet Oral BID Elsy Diego DO sodium chloride 0.9 % infusion 5-250 mL/hr IntraVENous PRN Poncho Cortez MD valsartan (Diovan) tablet 160 mg 160 mg Oral Daily Leny Hughes DO 160 mg at 07/10/24 0921 vancomycin IVPB 1250 mg in 250 mL NS (premix) 1,250 mg IntraVENous q12h Elsy Diego DO Stopped at 07/10/24 0824 Allergies: Allergies Allergen Reactions Bactrim [Sulfamethoxazole-Trimetho prim] Hives Hydrocodone-Acetaminophen Nausea And Vomiting Lisinopril Cough Tramadol Rash and Dizziness Reviewed rash from Bactrim Social History: Social History Socioeconomic History Marital status: Spouse name: Not on file Number of children: Not on file Years of education: Not on file Highest education level: Not on file Occupational History Not on file Tobacco Use Smoking status: Never Smokeless tobacco: Never Substance and Sexual Activity Alcohol use: Yes Comment: [facility] Drug use: Never Sexual activity: Not on file Other Topics Concern Not on file Social History Narrative Not on file Occ Cigar smoking, social EtOH only Family History: No family history on file. Review of Systems: Review of Systems Constitutional: Positive for chills, fatigue and fever (resolved for 2 days now). HENT: Negative for congestion and sore throat. Respiratory: Negative for cough and shortness of breath. Cardiovascular: Positive for chest pain (resolved) and leg swelling (chronic to LLE since hematoma evacuation few years ago, also s/p bilateral TKA). Gastrointestinal: Positive for nausea and vomiting (on intake 07/07, resolved). Negative for abdominal pain. Genitourinary: Negative for di (more content not included)... Normal [facility] Consult Pharmacy Managed Vancomycin Dosing Service Consult Note Consult Date: 07/10/24 Patient Name: Avery Vasquez Allergies: Bactrim [sulfamethoxazole-trimetho prim], Hydrocodone-acetaminophen, Lisinopril, and Tramadol Age: 74 y.o. Sex: male Estimated body mass index is 36.65 kg/m? as calculated from the following: Height as of this encounter: 1.702 m (5' 7). Weight as of this encounter: 106 kg (234 lb). DW: 106 kg Lab Results Component Value Date CREATININE 0.62 (L) 07/10/2024 CREATININE 0.78 07/09/2024 BUN 17 07/10/2024 BUN 16 07/09/2024 WBC 6.1 07/10/2024 WBC 6.0 07/09/2024 Calculated CrCl: 121 mL/min (Cockcroft-Gault) Consulted By: Elsy Diego Infectious Diagnosis: Sepsis of unknown etiology (AUC Goal 400-600 mg/L*hr) Random Vancomycin Level Due: 07/11/24 Antimicrobials: Patient recently received an antibiotic (last 12 hours) Date/Time Action Medication Dose 07/09/242214 Given mupirocin (Bactroban) 2 % ointment 1 Application 1 Application Assessment/Plan: Doses, serum creatinine, and vancomycin levels interfaced automatically to [employer] and data has been analyzed and interpreted. Start Vancomycin 1,250 mg every 12 hours based on patient age, weight, renal function, and infectious diagnosis (11.8 mg/kg). Predicted AUC = 497 mg/L*hr (goal 400-600 mg/L*hr) PAUC = 76% (probability that AUC is >400 mg/L*hr) Pconc = 16% (probability that Ctrough is above 20 mcg/mL (toxicity)) Will assess random level on 07/11/24 and adjust as appropriate. Trend serum creatinine. Orders placed. Thank you for this consult. Please secure text or call with questions. DATE: 07/10/24 TIME: 6:09 AM Davi Barclay [facility] Clinical Pharmacist Available via Secure Chat [facility] LACTIC ACID WITH REFLEXon Lactate [Moles/Vol] 0.8 mmol/L Normal 0.7-2.0 [facility] Comment on above: Performed By: #### L [id number] ####Occupancy Specialist: GATO GRAY ([phone])[facility])[address] [place] [address] LEGIONELLA AND STREPTOCOCCUS URINE ANTIGENon 07-10-2024 LEGIONELLA AND STREPTOCOCCUS URINE ANTIGEN LEGIONELLA PNEUMOPHILA URINE ANTIGEN Reference Not Detected Not Detected STREPTOCOCCUS PNEUMONIAE URINE ANTIGEN Reference Not Detected Not Detected ORDER COMMENTS: Methodology: Lateral flow enzyme immunoassay This assay is approved for detection of antigens to Streptococcus pneumoniae and Legionella pneumophila serogroup 1; however, other L. pneumophila serogroups may also be detected. Normal [facility] Comment on above: Performed By: #### L [id number] ####Occupancy Specialist: GATO GRAY ([phone])[address] Laboratory - Chemistry and C hemistry - challengeon 07-10-2024 Glucose [Mass/Vol] 139 mg/dL High 70 - 100 mg/dL [facility] Glucose [Mass/Vol] 139 mg/dL High 70 - 100 mg/dL [facility] Glucose [Mass/Vol] 272 mg/dL High 70 - 100 mg/dL [facility] Lactate [Moles/Vol] 0.8 mmol/L 0.7 - 2. 0 mmol/L [facility] MRSA BY PCRon 07-10-2024 MRSA BY PCR STAPHYLOCOCCUS AUREU S Reference Not Detected Not Detected MECA GENE Reference Not Detected Not Detected ORDER COMMENTS: No Staphylococcus aureus detected. Negative nasal MRSA PCR has a high negative predictive value for MRSA pneumonia. Consider stopping Vancomycin if no other clinical indication. Contact Antimicrobial Stewardship for further recommendations. Staphylococcus aureus nasal screen by real-time PCR. This test was modified and its performance characteristics determined by [facility]. The U. S. Food and Drug Administration has not approved or cleared this test; however, FDA clearance or approval is not currently required for clinical use. The results are not intended to be used as the sole means for clinical diagnosis or patient management decisions. Normal [facility] Comment on above: Performed By: #### L [id number] ####Occupancy Specialist: GATO GRAY ([phone])[facility] ([facility])[address] [place] [address] MRSA DNA NILDA+probe Ql (Nose) on 07-10-2024 Interpretation and review of laboratory results Normal [facility] mecA gene Not detected Not Detected [facility] Staphylococcus aureus Not detected Not Detected [facility] No Staphylococcus au reus detected. Negative nasal MRSA PCR has a high negative predictive value for MRSA pneumonia. Consider stopping Vancomycin if no other clinical indication. Contact Antimicrobial Stewardship for further recommendations. Staphylococcus aureus nasal screen by real-time PCR. This test was modified and its performance characteristics determined by [facility]. The U. S. Food and Drug Administration has not approved or cleared this test; however, FDA clearance or approval is not currently required for clinical use. The results are not intended to be used as the sole means for clinical diagnosis or patient management decisions. [facility] No Panel Informationon 07-10 Interpretation and review of laboratory results Abnormal [facility] Performed by: [facility], [address] [place] [address] CLIA ID: [id number] [facility] Interpretation and review of laboratory results Abnormal [facility] Performed by: [facility], [address] [place] [id number] CLIA ID: [id number] [facility] Interpretation and review of laboratory results Normal [facility] Legionella pneumophila Ag Not detected Not Detected [facility] Streptococcus pneumoniae Ag Not detected Not Detected [facility] Methodology: Lateral flow enzyme immunoassay This assay is approved for detection of antigens to Streptococcus pneumoniae and Legionella pneumophila serogroup 1; however, other L. pneumophila serogroups may also be detected. [facility] Interpretation and review of laboratory results Abnormal [facility] Performed by: [facility], [address] [place] [id number] CLIA ID: [id number] [facility] Interpretation and review of laboratory results Normal [facility] PNEUMONIA PCR PANELon 2023 PNEUMONIA PCR PANEL STAPHYLOCOCCUS AUREU S Reference Not Detected Not Detected STREPTOCOCCUS AGALACTIAE Reference Not Detected Not Detected STREPTOCOCCUS PNEUMONIAE Reference Not Detected Not Detected STREPTOCOCCUS PYOGENES Reference Not Detected Not Detected HAEMOPHILUS INFLUENZAE (A) Reference Detected Not Detected MORAXELLA CATARRHALIS Reference Not Detected Not Detected ACINETOBACTER BAUMANNII COMPLEX Reference Not Detected Not Detected ENTEROBACTER CLOACAE COMPLEX Reference Not Detected Not Detected ESCHERICHIA COLI Reference Not Detected Not Detected KLEBSIELLA (ENTEROBACTER) AEROGENES Reference Not Detected Not Detected KLEBSIELLA OXYTOCA Reference Not Detected Not Detected KLEBSIELLA PNEUMONIAE Reference Not Detected Not Detected PROTEUS SPP Reference Not Detected Not Detected PSEUDOMONAS AERUGINOSA Reference Not Detected Not Detected SERRATIA MARCESCENS Reference Not Detected Not Detected CHLAMYDIA PNEUMONIAE Reference Not Detected Not Detected LEGIONELLA PNEUMOPHILA Reference Not Detected Not Detected MYCOPLASMA PNEUMONIAE Reference Not Detected Not Detected ADENOVIRUS Reference Not Detected Not Detected CORONAVIRUS Reference Not Detected Not Detected HUMAN METAPNEUMOVIRUS Reference Not Detected Not Detected HUMAN RHINOVIRUS/ENTEROVIRUS Reference Not Detected Not Detected INFLUENZA A Reference Not Detected Not Detected INFLUENZA B Reference Not Detected Not Detected PARAINFLUENZA VIRUS Reference Not Detected Not Detected RESPIRATORY SYNCYTIAL VIRUS Reference Not Detected Not Detected ORDER COMMENTS: A positive Coronavirus (not SARS-CoV-2) result on the [employer] Pneumonia PCR Panel should be taken in the context of other clinical data as increased false positive detection has been noted by the naturopath. Consider collecting a nasopharyngeal sample for the Respiratory Pathogens Panel by PCR if clinically indicated. Methodology: Multiplex PCR This panel does not test for SARS-CoV-2 (Covid-19). The following antimicrobial resistance gene is reported if the appropriate organism is detected: mecA. The following antimicrobial resistance genes are reported if detected and the appropriate organisms are detected: CTX-M, IMP, KPC, NDM, OXA-48-like, and VIM. [facility] Comment on above: Performed By: #### L [id number] ####Occupancy Specialist: GATO GRAY ([phone])[facility] ([address] Progress Noteon 07-10-2024 Progress Note Vancomycin therapy h as been discontinued by Leny Hughes DO on 07/10/24. Thank you for the consult. Pharmacy signing off for vancomycin dosing. Laquita Thomas RPh, PharmD Date: 07/10/24 Time: 11:32 AM [facility] Progress Note PHYSICAL THERAPY [facility] Treatment Note Name/MRN: Avery Vasquez ([id number]) Date of : 1950 Age: 74 y.o. Room/Bed: T2/T2 A Discharge Recommendation: Home with assist PRN, Home with Home health PT Equipment Needed: No Prior Level of Function Prior Level of ADL Function: Independent Prior Level of Mobility: Independent; Device: Straight Cane Prior Level of Transfers: Independent Assessment Pt noted to have improved endurance and stability this date. Mild SOB with activity but SpO2 stayed >94% on RA. SBA-CGA for transfers and ambulation with his straight cane. Pt reported feeling better from yesterday but still weak. Recommend disch to home with assist PRN and Home Health PT. Subjective Pt in the recliner and agreeable to PT. RN notified sling was wet around IV site with concern for leaking. Pt reported being up and walking in the room today and feeling much better. Pain: RN managing pain. Arndt-Cuellar Pain Ratin = Hurts little more Pain Location: Ribs, clavicle Medical Precautions: Droplet Proper PPE donned/doffed in accordance with facility standards. Fall Risk: Mcguire Fall Risk Score: 70 (High Risk) Precautions/Restrictions: Braces or Orthoses: sling R UE Right UE Weight Bearing: Non-Weight Bearing Lines/Drains/Airways: tele, PIV x 2, on RA Overall Cognitive Status: WNL Overall Orientation Status: Oriented x4 Family/Caregiver Present: spouse and sibling(s) Objective Transfers/Mobility Sit to stand: Contact Guard Stand to sit: Contact Guard CGA but no LOB, just required increased effort Device(s) used: Straight Cane Ambulation Ambulation 1 Assistive device(s) used: Straight Cane Assist level: SBA Distance (ft): ~250 ft Quality of gait: slow josh, slight forward flexed posture. Reported fatigue and mild SOB Balance During Session: Posture: fair Sitting - Static: Independent Sitting - Dynamic: Independent Standing - Static: SBA Standing - Dynamic: Contact Guard Exercises Exercises Upper Extremity: R UE elbow flexion/ extension, pronation/supination, hand opening/closing, and shoulder IR/ER Plan Continue acute PT per plan of care. Safety/Education Safety Safety Devices in place: call light within reach, left in chair, gait belt, patient at risk for falls, and nurse notified Restraints: No Education Education Given To: patient Education Provided: PT Role, PT Goals, Gait Training, Plan of Care, Home Exercise Program, Precautions, Discharge Recommendations, and Benefits of Increasing Activity Education Method: Verbal and Demonstration Barriers to Learning: None Education Outcome: Verbalized Understanding Outcome Measures AM-PAC AM-PAC Inpatient Mobility Raw Score (No Stairs) : 16 JH-HLM -HLM Score: Walked 250 ft or more (i.e. several laps on unit) Goals Patient Stated Goal: to go home Encounter Problems Encounter Problems (Active) Mobility Patient will ambulate 100 feet with supervision and straight cane in order to improve safety and independence with mobility. (Progressing) Start: 07/09/24 Expected End: 08/06/24 Patient will ascend and descend entry stairs with least restrictive device and supervision in order to safely negotiate home. (Not Addressed) Start: 07/09/24 Expected End: 08/06/24 Pain - Adult Transfers Patient will perform bed mobility with supervision in order to improve independence and prepare for out of bed mobility. (Not Addressed) Start: 07/09/24 Expected End: 08/06/24 Patient will complete sit to stand transfer with supervision to straight cane in order to improve safety and prepare for out of bed mobility. (Progressing) Start: 07/09/24 Expected End: 08/06/24 Therapy Time Individual Co-treatment Time In 1034 Time Out 1101 Minutes 27 Timed Code Treatment Minutes: (x1 Gait, x1 FA) Yuly Constantino, PT [facility] Progress Note ------ -- Attestation signed by Ashli Luna MD at 07/13/2024 9:10 PM ATTENDING ADDENDUM Patient Active Problem List Diagnosis Intracranial bleeding (HCC) Closed fracture of multiple ribs of right side with routine healing Traumatic closed fracture of distal clavicle with minimal displacement, right, initial encounter Acute pulmonary embolism without acute cor pulmonale, unspecified pulmonary embolism type (HCC) I personally supervised the resident/CREEL CLERK/JOSE DE JESUS in the evaluation and development of a treatment plan for this patient on the same day of service as above. I personally discussed the review of systems and interviewed the patient along with performing a physical examination. I reviewed the recent events, imaging, labs, vital signs. In addition, I discussed the patient's condition and treatment options with him/her when possible. I have also reviewed and agree with the past medical, family, and social history unless otherwise noted. All of the patient's questions were answered and family updated when appropriate and possible. ASSESSMENT: 74M recently briefly admitted (06/26 - 06/27) after a traumatic encounter with a cow resulting in R SAH, multiple right sided rib fractures and R clavicle fracture, who now presents with weakness and syncopal fall, resulting in new 3 mm focal SDH posterior parietal lobe, and bilateral segmental PEs. Clinically well appearing, Blood cultures growing GNB -> Zosyn started Stable bilateral Pes, on room air PLAN: 1. Neuro: Previous traumatic R SAH sylvian fissure - resolved. New parietal SDH - stable on CTH 07/08 on heparin 2. CV: HDS stable, no acute issues 3. Pulm: Bilateral segmental PEs, provoked by trauma -> heparin drip, transition to Eliquis today - Acute hypoxic insufficiency - resolved. On room air 4. GI: regular diet, has not had a BM - aggressive bowel regimen 5. Renal: normal renal function, voiding 6. Hem: Acute blood loss anemia, stable. PLT wnl 7. Endo: Type II DM with hyperglycemia (on multiple oral hypoglycemics at home) -> increase to HDISS 8. ID: Febrile, tachycardic, tachypnea, encephalopathic yesterday, preliminary Bcx at [place] positive. No leukocytosis. Hold off on antibiotics until cultures result - 07/08 Blood Cx: showing GN bacilli -> Zosyn started - 07/08 Resp PCR nose swab: no pathogens detected - 07/08 UA negative 9. Lines: PIVs 10. Proph: Eliquis for PE, no indications for GI proph 11. MSK: PT/OT recommending Home with assist PRN, Home with Home health PT 12. Dispo: medically stable for transfer to the floor Level of Medical Decision Making: risk of morbidity from additional diagnostic testing or treatment due to bilateral PE requiring systemic [x]High []Moderate []Low Complexity: Acute or chronic illness posing a threat to life (HIGH) Risk: Drug or therapy requiring intensive monitoring (HIGH) Personally Reviewed/Independently interpreted patient's: [x]Epic notes []Radiology studies [x]Labs []EKG []Ordering tests []Other Discussed/ With: [x]Patient/Family [x]RN []Consultants []SW/TCC []Other I spent total time of 50 minutes reviewing previous notes, test results, and face to face with Avery Vasquez discussing the diagnosis and importance of compliance with the treatment plan as well as documenting on the day of the visit. Ashli Luna MD Division of Trauma Department of Surgery [facility] Pager: [phone] -- Daily Trauma Progress Note Resident 07/10/2024 6:07 AM Admit Date: 07/06/2024 Post Trauma Day 07/06/2024 HPI: 74 y/o male with a PMH of DM, HTN, HLD, who presented on 07/06 for syncopal event, recently admitted 06/26-06/27 after being struck by a cow. 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 Prior to arrival he had a syncopal event at home and was found to have bilateral segmental PEs. He was transferred here from [facility] for further management. INJURIES: -Bilateral segmental PEs -Previous traumatic R SAH sylvian fissure, focal hemorrhagic contusion superior aspect of the right parietal lobe and previous aspect of the posterior right parietal lobe. Nearly removed with 3mm focal SDH of posterior parietal lobe -Right occipital scalp hematoma -Acute R clavicle fracture PROCEDURES: NA CHIEF COMPLAINT: Syncopal event PREVIOUS 24 HOUR EVENTS: No acute events overnight. Patients blood cultures returned positive for gram negative bacilli, infectious workup ordered and broad-spectrum antibiotics started. Consults: IP CONSULT TO PULMONOLOGY IP CONSULT TO NEUROLOGY IP CONSULT TO NEUROSURGERY IP CONSULT TO ORTHOPAEDIC SURGERY PHARMACY TO DOSE VANCO MEDICATIONS: Current Facility- (more content not included)... Normal [facility] RESPIRATORY CULTURE AND STAI Non 07-10-2024 RESPIRATORY CULTURE AND STAIN RESPIRATORY CULTURE Reference Many respiratory yamilet present. GRAM STAIN RESULT (A) Reference (A) Many Polymorphonuclear leukocytes per low power field Few Epithelial cells per low power field Many Gram positive cocci Many Gram positive bacilli Many Gram negative bacilli [ S = SUSCEPTIBLE R = RESISTANT I = INTERMEDIATE S-DD = Susceptible-dose dependent NS = Non-susceptible NO = No Interpretation ] Normal [facility] Comment on above: Performed By: #### L [id number] #### Occupancy Specialist: GATO GRAY ([phone]) [facility]) [address] [place] [address] RESPIRATORY PATHOGENS PANEL BY PCRon 07-10-2024 RESPIRATORY PATHOGENS PANEL BY PCR SARS-COV-2 Reference Not Detected Not Detected ADENOVIRUS Reference Not Detected Not Detected CORONAVIRUS HKU1 Reference Not Detected Not Detected CORONAVIRUS NL63 Reference Not Detected Not Detected CORONAVIRUS 229E Reference Not Detected Not Detected CORONAVIRUS OC43 Reference Not Detected Not Detected HUMAN METAPNEUMOVIRUS Reference Not Detected Not Detected HUMAN RHINOVIRUS/ENTEROVIRUS Reference Not Detected Not Detected INFLUENZA A Reference Not Detected Not Detected INFLUENZA B Reference Not Detected Not Detected PARAINFLUENZA 1 Reference Not Detected Not Detected PARAINFLUENZA 2 Reference Not Detected Not Detected PARAINFLUENZA 3 Reference Not Detected Not Detected PARAINFLUENZA 4 Reference Not Detected Not Detected RESPIRATORY SYNCYTIAL VIRUS Reference Not Detected Not Detected BORDETELLA PERTUSSIS Reference Not Detected Not Detected BORDETELLA PARAPERTUSSIS Reference Not Detected Not Detected CHLAMYDIA PNEUMONIAE Reference Not Detected Not Detected MYCOPLASMA PNEUMONIAE Reference Not Detected Not Detected ORDER COMMENTS: Methodology: Multiplex PCR Normal [facility] Comment on above: Performed By: #### L [id number] ####Occupancy Specialist: GATO GRAY ([phone])[facility])[address] [place] [address] Respiratory pathogens DNA an d RNA panel NILDA+non-probe (Lower resp)Ordered By: Ashley Black on 07-10-2024 Acinetobacter baumannii complex Not detected Not Detected [facility] Adenovirus Not detected Not Detected [facility] Chlamydia pneumoniae Not detected Not Detected [facility] Enterobacter cloacae complex Not detected Not Detected [facility] Escherichia coli Not detected Not Detected [facility] FLUAV RNA NILDA+non-probe Ql (Lower resp) Not detected Not Detected [facility] FLUBV RNA NILDA+non-probe Ql (Lower resp) Not detected Not Detected [facility] Haemophilus influenzae Detected Abnormal Not Detected [facility] Human Metapneumovirus Not detected Not Detected [facility] Human Rhinovirus/Enterovirus Not detected Not Detected [facility] Interpretation and review of laboratory results Abnormal [facility] Klebsiella (Enterobacter) aerogenes Not detected Not Detected [facility] Klebsiella oxytoca Not detected Not Detected [facility] Klebsiella pneumoniae Not detected Not Detected [facility] Legionella pneumophila Not detected Not Detected [facility] Moraxella catarrhalis Not detected Not Detected [facility] Mycoplasma pneumoniae Not detected Not Detected [facility] Parainfluenza virus Not detected Not Detected [facility] Proteus spp Not detected Not Detected [facility] Pseudomonas aeruginosa Not detected Not Detected [facility] RSV RNA NILDA+probe Ql (Resp) Not detected Not Detected [facility] S. agalactiae Org specific cx Ql (Vag fld) Not detected Not Detected [facility] SARS-CoV-2 (COVID-19) RNA NILDA+non-probe Ql (Nph) Not detected Not Detected [facility] SARS-CoV-2 (COVID-19) RNA NILDA+probe Ql (Unsp spec) A positive Coronavirus (not SARS-CoV-2) result on the [employer] Pneumonia PCR Panel should be taken in the context of other clinical data as increased false positive detection has been noted by the naturopath. Consider collecting a nasopharyngeal sample for the Respiratory Pathogens Panel by PCR if clinically indicated. Methodology: Multiplex PCR This panel does not test for SARS-CoV-2 (Covid-19). The following antimicrobial resistance gene is reported if the appropriate organism is detected: mecA. The following antimicrobial resistance genes are reported if detected and the appropriate organisms are detected: CTX-M, IMP, KPC, NDM, OXA-48-like, and VIM. [facility] Serratia marcescens Not detected Not Detected [facility] Staphylococcus aureus Not detected Not Detected [facility] Streptococcus pneumoniae Not detected Not Detected [facility] Streptococcus pyogenes Not detected Not Detected [facility] Respiratory pathogens DNA an d RNA panel NILDA+non-probe (Nph)on 07-10-2024 Adenovirus Not detected Not Detected [facility] B. pertussis DNA NILDA+probe Ql (Unsp spec) Not detected Not Detected [facility] Bordetella parapertussis Not detected Not Detected [facility] Chlamydia pneumoniae Not detected Not Detected [facility] Coronavirus 229E Not detected Not Detected [facility] Coronavirus HKU1 Not detected Not Detected [facility] Coronavirus NL63 Not detected Not Detected [facility] Coronavirus OC43 Not detected Not Detected [facility] FLUAV RNA NILDA+non-probe Ql (Nph) Not detected Not Detected [facility] FLUBV RNA NILDA+non-probe Ql (Nph) Not detected Not Detected [facility] Human Metapneumovirus Not detected Not Detected [facility] Human Rhinovirus/Enterovirus Not detected Not Detected [facility] Interpretation and review of laboratory results Normal [facility] Mycoplasma pneumoniae Not detected Not Detected [facility] Parainfluenza 1 Not detected Not Detected [facility] Parainfluenza 2 Not detected Not Detected [facility] Parainfluenza 3 Not detected Not Detected [facility] Parainfluenza 4 Not detected Not Detected [facility] Respiratory Syncytial Virus Not detected Not Detected [facility] SARS-CoV-2 (COVID-19) RNA NILDA+non-probe Ql (Nph) Not detected Not Detected [facility] Methodology: Multiplex PCR [facility] Urinalysis complete panel (U )on 07-10-2024 Bilirubin Ql (U) Negative Negative mg/dL [facility] Clarity (U) Clear Clear [facility] Color (U) Light Yellow Lt. Yellow [facility] Glucose Ql (U) 30 mg/dL Normal (<70) [facility] Hemoglobin Ql (U) Negative Negative mg/dL [facility] Interpretation and review of laboratory results Normal [facility] Ketones (U) [Mass/Vol] Negative Negat scott mg/dL [facility] Leukocyte esterase Test strip Ql (U) Negative Negative Thao/uL [facility] Nitrite Ql (U) Negative Negative [facility] pH (U) 6.0 [pH] 5.0 - 8.0 pH [facility] Protein (U) [Mass/Vol] Negative Negat scott mg/dL [facility] Specific gravity (U) [Rel density] 1.012 1.005 - 1.030 [facility] Urobilinogen (U) [Mass/Vol] Normal Normal (0-1) mg/dL [facility] XR CHEST 1 VIEWon 07-10-2024 XR CHEST 1 VIEW Patient Name: AVERY VASQUEZ : 1950 Exam Date/Time: 07/10/2024 07:34 Procedure: XR CHEST 1 VIEW Ordering Provider: STOVALL KATIE Reason For Exam: sob Examination: Portable chest Indication: sob Comparison: Two days prior Findings: Mild interstitial prominence may reflect mild pulmonary edema or may in part be chronic. Cardiac silhouette is borderline. There is a calcified aortic arch. Bilateral reverse shoulder arthroplasty is present. Right-sided mid clavicular fracture noted. IMPRESSION: Impression: As above. Report Dictated on Electronically Signed By: Brittany Phillips MD Electronically Signed Date/Time: 07/10/2024 7:39 AM EST Normal [facility] XR Chest Single viewon 07-10 Impression: As above. Report Dictated on Electronically Signed By: Brittany Phillips MD Electronically Signed Date/Time: 07/10/2024 7:39 AM EST [facility] Patient Name: AVERY VASQUEZ : 1950 Exam Date/Time: 07/10/2024 07:34 Procedure: XR CHEST 1 VIEW Ordering Provider: STOVALL KATIE Reason For Exam: sob Examination: Portable chest Indication: sob Comparison: Two days prior Findings: Mild interstitial prominence may reflect mild pulmonary edema or may in part be chronic. Cardiac silhouette is borderline. There is a calcified aortic arch. Bilateral reverse shoulder arthroplasty is present. Right-sided mid clavicular fracture noted. [facility] Brittany Phillips MD - 07/10/2024 Patient Name: AVERY VASQUEZ : 1950 Exam Date/Time: 07/10/2024 07:34 Procedure: XR CHEST 1 VIEW Ordering Provider: STOVALL KATIE Reason For Exam: sob Examination: Portable chest Indication: sob Comparison: Two days prior Findings: Mild interstitial prominence may reflect mild pulmonary edema or may in part be chronic. Cardiac silhouette is borderline. There is a calcified aortic arch. Bilateral reverse shoulder arthroplasty is present. Right-sided mid clavicular fracture noted. IMPRESSION: Impression: As above. Report Dictated on Electronically Signed By: Brittany Phillips MD Electronically Signed Date/Time: 07/10/2024 7:39 AM EST [facility] Radiology Study observation (narrative) [facility] XR Chest Single viewOrdered By: Brittany Phillips on 07-10-2024 [facility] Work Phone: [phone] 07-09-2024 36 Patient with pulmona ry emboli, started on eliquis. Needs follow up for pulmonary emboli in 2 weeks. Patient lives in [place] and would like to go to [place]. Thanks. Normal [facility] BASIC METABOLIC PANELon 11-0 Anion gap [Moles/Vol] 6 mmol/L Normal 3-13 [facility] Comment on above: Performed By: #### L [id number] ####Occupancy Specialist: GATO GRAY ([phone])[address] Calcium [Mass/Vol] 9.1 mg/dL Normal 8.4-10.4 [facility] Comment on above: Performed By: #### L AB15 ####Occupancy Specialist: GATO GRAY ([phone])[address] Chloride [Moles/Vol] 104 mmol/L Normal 98-107 [facility] Comment on above: Performed By: #### L AB15 ####Occupancy Specialist: GATO [phone])[address] CO2 [Moles/Vol] 23 mmol/L Normal 22-30 [facility] Comment on above: Performed By: #### L AB15 ####Occupancy Specialist: GATO [phone])[facility] [place] [address] Creatinine [Mass/Vol] 0.78 mg/dL Normal 0.66-1.25 [facility] Comment on above: Performed By: #### L AB15 ####Occupancy Specialist: GATO GRAY ([phone])[facility] ([facility])[address] [place] [address] GLOMERULAR FILTRATION RATE ML/MIN/1.73 SQ M.PREDICTED >90.0 Normal >60.0 [facility] Comment on above: Result Comment: Calc ulation based on the Chronic Kidney Disease Epidemiology Collaboration (CKD-EPI) equation refit without adjustment for race Performed By: #### L AB15 ####Occupancy Specialist: GATO GRAY ([phone])[facility] ([facility])[address] [place] [address] Glucose [Mass/Vol] 133 mg/dL High 70-100 [facility] Comment on above: Performed By: #### L AB15 ####Occupancy Specialist: GATO GRAY ([phone])[facility] ([facility])[address] [place] [address] Potassium [Moles/Vol] 4.0 mmol/L Normal 3.5-5.1 [facility] Comment on above: Performed By: #### L AB15 ####Occupancy Specialist: GATO GRAY ([phone])[facility] [place] [address] Sodium [Moles/Vol] 133 mmol/L Low 135-145 [facility] Comment on above: Performed By: #### L AB15 ####Occupancy Specialist: GATO GRAY ([phone])[facility] ([facility])[address] [place] [address] Urea nitrogen [Mass/Vol] 16 mg/dL Normal 9-20 [facility] Comment on above: Performed By: #### L AB15 ####Occupancy Specialist: GATO GRAY ([phone])[facility] ([facility])[address] [place] [address] Basic metabolic 1998 panelon 11-04-2024 Anion gap [Moles/Vol] 6 mmol/L 3 - 13 mmol/L [facility] Calcium [Mass/Vol] 9.1 mg/dL 8.4 - 10. 4 mg/dL [facility] Chloride [Moles/Vol] 104 mmol/L 98 - 10 7 mmol/L [facility] CO2 [Moles/Vol] 23 mmol/L 22 - 30 mmol/L [facility] Creatinine [Mass/Vol] 0.78 mg/dL 0.66 - 1.25 mg/dL [facility] GFR/1.73 sq M.predicted (S/P/Bld) [Vol rate/Area] - PINF [facility] Comment on above: Calculation based on the Chronic Kidney Disease Epidemiology Collaboration (CKD-EPI) equation refit without adjustment for race Glucose [Mass/Vol] 133 mg/dL High 70 - 100 mg/dL [facility] Interpretation and review of laboratory results Abnormal [facility] Potassium [Moles/Vol] 4 mmol/L 3.5 - 5.1 mmol/L [facility] Sodium [Moles/Vol] 133 mmol/L Low 135 - 145 mmol/L [facility] Urea nitrogen [Mass/Vol] 16 mg/dL 9 - 20 mg/dL [facility] CBC (HEMOGRAM)on 07-09-2024 Erythrocyte distribution width (RBC) [Ratio] 14.3 % Normal 11.5-15.0 [facility] Comment on above: Performed By: #### L [id number] ####Occupancy Specialist: GATO GRAY ([phone])[address] Hematocrit (Bld) [Volume fraction] 30.3 % Low 40.0-52.0 [facility] Comment on above: Performed By: #### L [id number] ####Occupancy Specialist: GATO [phone])[address] Hemoglobin (Bld) [Mass/Vol] 10.0 g/dL Low 13.0-18.0 [facility] Comment on above: Performed By: #### L [id number] ####Occupancy Specialist: GATO [phone])[facility] ([facility])[address] [place] [address] MCH (RBC) [Entitic mass] 29.2 pg Normal 26.0-34.0 [facility] Comment on above: Performed By: #### L [id number] ####Occupancy Specialist: GATO GRAY ([phone])[facility] ([facility])[address] [place] [address] MCHC 33.0 % Normal 30.5-36.0 [facility] Comment on above: Performed By: #### L [id number] ####Occupancy Specialist: GATO GRAY ([phone])[facility] ([facility])[address] [place] [address] MCV (RBC) [Entitic vol] 88.6 fL Normal 77.0-99.0 S [facility] Comment on above: Performed By: #### L [id number] ####Occupancy Specialist: GATO GRAY ([phone])[facility] ([facility])[address] [place] [address] Platelet mean volume (Bld) [Entitic vol] 9.9 fL Normal 9.0-12.7 [facility] Comment on above: Performed By: #### L [id number] ####Occupancy Specialist: GATO GRAY ([phone])[facility] ([facility])[address] [place] [address] Platelets (Bld) [#/Vol] 167 10*3/uL Normal 140-440 [facility] Comment on above: Performed By: #### L [id number] ####Occupancy Specialist: GATO GRAY ([phone])[facility] ([facility])[address] [place] [address] RBC (Bld) [#/Vol] 3.42 10*6/uL Low 4.40-5.90 [facility] Comment on above: Performed By: #### L [id number] ####Occupancy Specialist: GATO GRAY ([phone])[facility] ([facility])[address] [place] [address] [place] WBC (Bld) [#/Vol] 6.0 10*3/uL Normal 3.6-10.7 [facility] Comment on above: Performed By: #### L [id number] ####Occupancy Specialist: GATO GRAY ([phone])[facility] ([facility])[address] [place] [address] CBC panel Auto (Bld)on 07-09 Erythrocyte distribution width (RBC) [Ratio] 14.3 % 11.5 - 15.0 % [facility] Hematocrit (Bld) [Volume fraction] 30.3 % Low 40.0 - 52.0 % [facility] Hemoglobin (Bld) [Mass/Vol] 10 g/dL Low 13.0 - 18.0 g/dL [facility] Interpretation and review of laboratory results Abnormal [facility] MCH (RBC) [Entitic mass] 29.2 pg 26.0 - 34.0 pg [facility] MCHC (RBC) [Mass/Vol] 33 % 30.5 - 36.0 % [facility] MCV (RBC) [Entitic vol] 88.6 fL 77.0 - 99.0 fL [facility] Platelet mean volume (Bld) [Entitic vol] 9.9 fL 9.0 - 12.7 fL [facility] Platelets (Bld) [#/Vol] 167 10*3/uL 140 - 440 10*3/uL [facility] RBC (Bld) [#/Vol] 3.42 10*6/uL Low 4.40 - 5.90 10*6/uL [facility] WBC (Bld) [#/Vol] 6 10*3/uL 3.6 - 10.7 10*3/uL [facility] ECG 12-LEADon 07-09-2024 ECG 12-LEAD IMPRESSION: Sinus rhythm Nonspecific intraventricular conduction delay Compared to ECG 07/07/2024 22:48:51 No significant changes Electronically Signed On 07-09-2024 16:26:31 EST by Audra Mckeon [facility] Laboratory - Chemistry and C hemistry - challengeon 07-09-2024 Glucose [Mass/Vol] 229 mg/dL High 70 - 100 mg/dL [facility] Glucose [Mass/Vol] 131 mg/dL High 70 - 100 mg/dL [facility] Glucose [Mass/Vol] 161 mg/dL High 70 - 100 mg/dL [facility] Glucose [Mass/Vol] 246 mg/dL High 70 - 100 mg/dL [facility] No Panel Informationon 07-09 Interpretation and review of laboratory results Abnormal [facility] Performed by: [facility], [address] [place] [id number] CLIA ID: [id number] [facility] Interpretation and review of laboratory results Abnormal [facility] Performed by: [facility], [address] [place] [id number] CLIA ID: [id number] [facility] Sinus rhythm Nonspecific intraventricular conduction delay Compared to ECG 07/07/2024 22:48:51 No significant changes Electronically Signed On 07-09-2024 16:26:31 EST by Audra Andres CV Audra Alamo MD - 07/09/2024 IMPRESSION: Sinus rhythm Nonspecific intraventricular conduction delay Compared to ECG 07/07/2024 22:48:51 No significant changes Electronically Signed On 07-09-2024 16:26:31 EST by Audra Andres [facility] Interpretation and review of laboratory results Abnormal [facility] Performed by: [facility], [address] [place] [id number] CLIA ID: [id number] [facility] Interpretation and review of laboratory results Abnormal [facility] Performed by: [facility], [address] [place] [id number] CLIA ID: [id number] [facility] No Panel InformationOrdered By: Soni Keita on 07-09-2024 Targets Detected Not detected [facility] Methodology: Multipl ex PCR The [employer] BCID panel can detect the following organisms: E. faecalis, E. faecium, Staphylococcus spp., S. aureus, S. epidermidis, S. lugdunensis, Streptococcus spp., S. pyogenes (Group A), S. agalactiae (Group B), S. pneumoniae, A. baumannii complex, B. fragilis, H. influenzae, N. meningitidis, P. aeruginosa, S. maltophilia, Enterobacterales, E. cloacae complex, E. coli, K. aerogenes, K. oxytoca, K. pneumoniae, Proteus spp., Salmonella spp., S. marcescens, C. albicans, C. auris, C. glabrata, C. krusei, C. parapsilosis, C. tropicalis, and C. neoformans/gattii. The following antimicrobial resistance genes are reported if appropriate organisms are detected: mecA/C and Keke/B. The following antimicrobial resistance genes are reported if detected and the appropriate organisms are detected: CTX-M, IMP, KPC, NDM, OXA-48-like, VIM, and mcr-1. [facility] No Panel InformationOrdered By: Audra Andres on 07-09-2024 P [place] 35 degrees [employer] Phone: IA Interval 189 ms [employer] Phone: QRS [place] 10 degrees [employer] Phone: QRSD Interval 117 ms [employer] Phone: QT Interval 398 ms [employer] Phone: QTC Interval 446 ms [employer] Phone: T Wave [place] 45 degrees [employer] Phone: [employer] Phone: Progress Noteon 07-09-2024 Progress Note ------ -- Attestation signed by Kvng Anderson MD at 07/09/2024 12:37 PM I have personally performed a [id number] diagnostic evaluation on this patient on date of service 07/09/24. History, labs, imaging studies, and electronic medical record have been reviewed by me. This note documented by the [x]director housekeeping []DENNIS reflects my history, exam, and medical decision making. I have reviewed and agree with the care plan. Changes were made in the orders as necessary. ROS documentation was reviewed and negative unless otherwise stated in HPI. Assessment and Plan: Provoked bilateral peripheral pulmonary emboli following trauma. Anticoagulation switched to Eliquis per primary service. Will need 3-6 months of oral anticoagulation for provoked PE. No evidence of DVT. IVC filter not indicated. Advised patient of risks of anticoagulation - in particular avoidance of additional trauma. Will arrange outpatient follow up (in [place] due to patient preference) to confirm safety and tolerance of anticoagulation and also consideration of course length. -- [facility] [address] [place] [address] [id number] Patient - Avery Vasquez, Age - 74 y.o. - 1950 Room Number - T2-212/T2-212 A Consulting - Diana Stovall MD Primary Care Physician - Aidan Argueta MD [id number] Date of Admission - 07/06/2024 10:23 PM Hospital Day - 3 Chief Complaint: shortness of breath and weakness Avery Vasquez is a 74 y.o. male who pulmonary is following for pulmonary emboli that are thought to be provoked by recent trauma. Patient with recent trauma where he suffered an intracranial bleed and multiple right sided rib and clavicle fractures. Patient was discharged on 06/28 and presents on 07/06/24 with shortness of breath after his legs gave out in the shower. Interval History Patient transitioned to PO eliquis. Patient reports his breathing feels good and his pain is under control. Some right sided discomfort with deep breathing, but does not feel it is limiting him. Overall patient reports he feels much better. Saturating well on 2lnc. All other systems reviewed and negative unless otherwise stated in HPI. Objective Vitals: BP 122/74 Pulse 68 Temp 36.4 ?C (97.6 ?F) (Temporal) Resp 19 Ht 5' 7 (1.702 m) Wt 234 lb (106 kg) SpO2 99% BMI 36.65 kg/m? Pulse Ox: SpO2 Av.9 % Min: 97 % Max: 100 % Supplemental O2: O2 Flow Rate (L/min): 2 L/min I/O 24HR INTAKE/OUTPUT: Intake/Output Summary (Last 24 hours) at 07/09/2024 0702 Last data filed at 07/09/2024 0415 Gross per 24 hour Intake 2157 ml Output 2425 ml Net -268 ml Exam General appearance: Awake, alert, no acute distress. On 2 liters/min NC. HEENT: Normocephalic, atraumatic. No scleral icterus, no right/left eye discharge. Conjunctivae normal. Pupils equal round and reactive to light. Right external ear normal, Left external ear normal. No congestion. Mouth: mucous membranes moist. Pharynx, Oropharynx is clear. No oropharyngeal exudate. Neck: ROM normal, No thyromegaly. No cervical lymphadenopathy Cardiovascular: Regular rate and rhythm. Heart sounds normal. Negative for murmur, friction rub, or gallop. Pulmonary: Effort normal, no respiratory distress. No stridor. Patient winces with deep end inspiration. Abdomen: Soft, no distention, no abdominal tenderness. No guarding. No masses. Musculoskeletal: ROM normal. Skin: Warm and dry. Skin is not jaundiced. No rash Extremities: No clubbing or cyanosis. no lower extremity edema. R arm in a sling Neurological: No focal deficits. Alert and oriented x person, place and time. Mental status is at baseline. No motor weakness. Psychiatric: Mood, behavior, thought content normal. Cooperative with exam. Medications Current Medications acetaminophen, 1,000 mg, Oral, q8h apixaban, 5 mg, Oral, BID insulin lispro, 0-12 Units, SubCUTAneous, TID WC And insulin lispro, 0-12 Units, SubCUTAneous, Nightly mupirocin, 1 Application, Nasal, BID sennosides, 1 tablet, Oral, BID PRN Mediations PRN medications: dextrose, dextrose, glucagon (rDNA), glucose, hydrALAZINE, ipratropium-albuterol, labetalol, naloxone, ondansetron ODT OR ondansetron, oxyCODONE OR oxyCODONE, polyethylene glycol (PEG) 3350, sodium chloride IV Drips/Infusions Labs CBC Results from last 7 days Lab Units 07/09/24 0407 WBC AUTO 10*3/uL 6.0 HEMOGLOBIN g/dL 10.0* HEMATOCRIT % 30.3* PLATELETS 10*3/uL 167 BMP: Results from last 7 days Lab Units 07/09/24 0407 07/08/24 0639 07/07/24 1838 SODIUM mmol/L 133* 132* 131* POTASSIUM mmol/L 4.0 4.0 3.4* CHLORIDE mmol/L 104 104 106 CO2 mmol/L 23 18* 15* BUN mg/dL 16 19 19 CREATININE mg/dL 0.78 (more content not included)... Normal [facility] Progress Note ------ -- Attestation signed by Ashli Luna MD at 07/13/2024 9:03 PM ATTENDING ADDENDUM Patient Active Problem List Diagnosis Intracranial bleeding (HCC) Closed fracture of multiple ribs of right side with routine healing Traumatic closed fracture of distal clavicle with minimal displacement, right, initial encounter Acute pulmonary embolism without acute cor pulmonale, unspecified pulmonary embolism type (HCC) I personally supervised the resident/CREEL CLERK/JOSE DE JESUS in the evaluation and development of a treatment plan for this patient on the same day of service as above. I personally discussed the review of systems and interviewed the patient along with performing a physical examination. I reviewed the recent events, imaging, labs, vital signs. In addition, I discussed the patient's condition and treatment options with him/her when possible. I have also reviewed and agree with the past medical, family, and social history unless otherwise noted. All of the patient's questions were answered and family updated when appropriate and possible. ASSESSMENT: 74M recently briefly admitted (06/26 - 06/27) after a traumatic encounter with a cow resulting in R SAH, multiple right sided rib fractures and R clavicle fracture, who now presents with weakness and syncopal fall, resulting in new 3 mm focal SDH posterior parietal lobe, and bilateral segmental PEs. Clinically well appearing, ongoing work-up for infectious source Weaning O2 requirement for bilateral PEs PLAN: 1. Neuro: Previous traumatic R SAH sylvian fissure - resolved. New parietal SDH - stable on CTH 11 on heparin 2. CV: HDS stable, no acute issues 3. Pulm: Bilateral segmental PEs, provoked by trauma -> heparin drip, transition to Eliquis today - Acute hypoxic insufficiency - improving (was on NIV, now on nasal cannula) 4. GI: regular diet, has not had a BM - bowel regimen 5. Renal: normal renal function, voiding 6. Hem: Acute blood loss anemia, Hb 10, stable. PLT 167 7. Endo: Glucose level acceptable, gluc 130s-140s 8. ID: Febrile, tachycardic, tachypnea, encephalopathic yesterday, preliminary Bcx at [place] positive. No leukocytosis. Hold off on antibiotics until cultures result - 07/08 Blood Cx: pending - 07/08 Resp PCR nose swab: no pathogens detected - 07/08 UA negative 9. Lines: PIVs 10. Proph: Eliquis for PE, no indications for GI proph 11. MSK: PT/OT to evaluate today 12. Dispo: medically stable for transfer to the floor Level of Medical Decision Making: risk of morbidity from additional diagnostic testing or treatment due to bilateral PE requiring systemic [x]High []Moderate []Low Complexity: Acute or chronic illness posing a threat to life (HIGH) Risk: Drug or therapy requiring intensive monitoring (HIGH) Personally Reviewed/Independently interpreted patient's: [x]Epic notes []Radiology studies [x]Labs []EKG []Ordering tests []Other Discussed/ With: [x]Patient/Family [x]RN []Consultants []SW/TCC []Other I spent total time of 50 minutes reviewing previous notes, test results, and face to face with Avery Vasquez discussing the diagnosis and importance of compliance with the treatment plan as well as documenting on the day of the visit. Ashli Luna MD Division of Trauma Department of Surgery [facility] Pager: [phone] -- Daily Trauma Progress Note Resident 07/09/2024 6:16 AM Admit Date: 07/06/2024 Post Trauma Day 07/06/2024 HPI: 74 y/o male with a PMH of DM, HTN, HLD, who presented on 07/06 for syncopal event, recently admitted 06/26-06/27 after being struck by a cow. 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 Prior to arrival he had a syncopal event at home and was found to have bilateral segmental PEs. He was transferred here from [facility] for further management. INJURIES: -Bilateral segmental PEs -Previous traumatic R SAH sylvian fissure, focal hemorrhagic contusion superior aspect of the right parietal lobe and previous aspect of the posterior right parietal lobe. Nearly removed with 3mm focal SDH of posterior parietal lobe -Right occipital scalp hematoma -Acute R clavicle fracture PROCEDURES: NA CHIEF COMPLAINT: Syncopal event PREVIOUS 24 HOUR EVENTS: No acute events overnight. Currently on 3L NC. Consults: IP CONSULT TO PULMONOLOGY IP CONSULT TO NEUROLOGY IP CONSULT TO NEUROSURGERY IP CONSULT TO ORTHOPAEDIC SURGERY MEDICATIONS: Current Facility-Administered Medications: acetaminophen (Tylenol) tablet 1,000 mg, 1,000 mg, Oral, q8h, Serge Razo III, MD, 1,000 mg at 07/08/24 2253 dextrose 5 % infusion, 100 mL/hr, IntraVENous, PRN, Poncho Cortez MD dextrose 50 % solution 12.5 (more content not included)... Normal [facility] Vital signsOrdered By: Kvng Andres on 07-09-2024 Heart rate 76 /min bpm [facility] [employer] Phone: 30on 07-08-2024 30 Problem: Discharge Planning Goal: Discharge to home or other facility with appropriate resources Outcome: Not Progressing Problem: Pain - Adult Goal: Verbalizes/displays adequate comfort level or baseline comfort level Outcome: Progressing Problem: Safety - Adult Goal: Free from fall injury Outcome: Progressing Problem: Chronic Conditions and Co-morbidities Goal: Patient's chronic conditions and co-morbidity symptoms are monitored and maintained or improved Outcome: Progressing Problem: Knowledge Deficit Goal: Patient/family/caregiver demonstrates understanding of disease process, treatment plan, medications, and discharge instructions Outcome: Progressing Problem: Potential for Compromised Skin Integrity Goal: Skin Integrity is Maintained or Improved Outcome: Progressing Goal: Nutritional status is improving Outcome: Progressing Problem: Urinary Incontinence Goal: Perineal skin integrity is maintained or improved Outcome: Progressing Normal [facility] APTTon 07-08-2024 aPTT Coag (Bld) [Time] 52.1 s High 20.0-30.5 [facility] Comment on above: Result Comment: SONYA Gambino COMMENTS: NOTE: The therapeutic time for Heparin anticoagulation, based on Xa activity inhibition, is an APTT of 46-80 seconds. Performed By: #### L [id number] ####Occupancy Specialist: GATO GRAY ([phone])[address] aPTT Coag (Bld) [Time] 60.8 s High 20.0-30.5 [facility] Comment on above: Result Comment: SONYA Gambino COMMENTS: NOTE: The therapeutic time for Heparin anticoagulation, based on Xa activity inhibition, is an APTT of 46-80 seconds. Performed By: #### L [id number] ####Occupancy Specialist: GATO [id number])[facility] ([facility])[address] [place] [address] BASIC METABOLIC PANELon 11-0 Anion gap [Moles/Vol] 10 mmol/L Normal 3-13 [facility] Comment on above: Performed By: #### L AB15, [id number] ####Occupancy Specialist: GATO GRAY ([phone])[facility])[address] [place] [address] Calcium [Mass/Vol] 9.0 mg/dL Normal 8.4-10.4 [facility] Comment on above: Performed By: #### L AB15, [id number] ####Occupancy Specialist: GATO [phone])[address] Chloride [Moles/Vol] 104 mmol/L Normal 98-107 [facility] Comment on above: Performed By: #### L 15, [id number] ####Occupancy Specialist: GATO GRAY ([phone])[facility] ([facility])[address] [place] [address] CO2 [Moles/Vol] 18 mmol/L Low 22-30 [facility] Comment on above: Performed By: #### Dalila PIRES15, [id number] ####Occupancy Specialist: GATO GRAY ([phone])[facility] ([facility])[address] [place] [address] Creatinine [Mass/Vol] 0.79 mg/dL Normal 0.66-1.25 [facility] Comment on above: Performed By: #### Dalila PIRES15, [id number] ####Occupancy Specialist: GATO GRAY ([phone])[facility] ([facility])[address] [place] [address] GLOMERULAR FILTRATION RATE ML/MIN/1.73 SQ M.PREDICTED >90.0 Normal >60.0 [facility] Comment on above: Result Comment: Calc ulation based on the Chronic Kidney Disease Epidemiology Collaboration (CKD-EPI) equation refit without adjustment for race Performed By: #### L 15, [id number] ####Occupancy Specialist: GATO GRAY ([phone])[facility] ([facility])[address] [place] [address] Glucose [Mass/Vol] 145 mg/dL High 70-100 [facility] Comment on above: Performed By: #### L AB15, [id number] ####Occupancy Specialist: GATO GRAY ([phone])[facility] ([facility])[address] [place] [address] Potassium [Moles/Vol] 4.0 mmol/L Normal 3.5-5.1 [facility] Comment on above: Performed By: #### L AB15, [id number] ####Occupancy Specialist: GATO GRAY ([phone])[facility] [address] Sodium [Moles/Vol] 132 mmol/L Low 135-145 [facility] Comment on above: Performed By: #### L AB15, [id number] ####Occupancy Specialist: GATO GRAY ([phone])[facility])[address] [place] [address] Urea nitrogen [Mass/Vol] 19 mg/dL Normal 9-20 [facility] Comment on above: Performed By: #### L AB15, [id number] ####Occupancy Specialist: GATO GRAY ([phone])[facility])[address] [place] [address] BLOOD CULTUREon 07-08-2024 Bacteria identified Cx Nom (Bld) BLOOD CULTURE (AA) Reference BACTEROIDES PYOGENES Bacteroides pyogenes (AA) For identification and/or sensitivity, refer to culture collected on: 07/08/24 at 0639([address] [place] [address]) This is an edited result. Previous organism was Gram-negative bacilli on 07/09/2024 at 2337 EST. ORDER COMMENTS: Blood Collection Site: Left Wrist [ S = SUSCEPTIBLE R = RESISTANT I = INTERMEDIATE S-DD = Susceptible-dose dependent NS = Non-susceptible NO = No Interpretation ] Normal [facility] Comment on above: Order Comment: Known bacteremia at outside hospital Performed By: #### L [id number] ####Occupancy Specialist: GATO GRAY ([phone])[facility] ([facility])[address] [place] [address] Bacteria identified Cx Nom (Bld) BLOOD CULTURE (AA) Reference BACTEROIDES PYOGENES Bacteroides pyogenes (AA) This is an edited result. Previous organism was Gram-negative bacilli on 07/09/2024 at 1940 EST. ORDER COMMENTS: Blood Collection Site: Right Forearm [ S = SUSCEPTIBLE R = RESISTANT I = INTERMEDIATE S-DD = Susceptible-dose dependent NS = Non-susceptible NO = No Interpretation ] [facility] Comment on above: Performed By: #### L [id number], [id number] ####Occupancy Specialist: GATO GRAY ([phone])[facility])[address] [place] [address] BLOOD CULTURE IDENTIFICATION - ANAEROBICon 07-08-2024 BLOOD CULTURE IDENTIFICATION - ANAEROBIC BCID TARGETS DETECTED Reference None Detected ORDER COMMENTS: Methodology: Multiplex PCR The [employer] BCID panel can detect the following organisms: E. faecalis, E. faecium, Staphylococcus spp., S. aureus, S. epidermidis, S. lugdunensis, Streptococcus spp., S. pyogenes (Group A), S. agalactiae (Group B), S. pneumoniae, A. baumannii complex, B. fragilis, H. influenzae, N. meningitidis, P. aeruginosa, S. maltophilia, Enterobacterales, E. cloacae complex, E. coli, K. aerogenes, K. oxytoca, K. pneumoniae, Proteus spp., Salmonella spp., S. marcescens, C. albicans, C. auris, C. glabrata, C. krusei, C. parapsilosis, C. tropicalis, and C. neoformans/gattii. The following antimicrobial resistance genes are reported if appropriate organisms are detected: mecA/C and Keke/B. The following antimicrobial resistance genes are reported if detected and the appropriate organisms are detected: CTX-M, IMP, KPC, NDM, OXA-48-like, VIM, and mcr-1. Normal [facility] Comment on above: Performed By: #### L [id number], [id number] ####Occupancy Specialist: GATO GRAY ([phone])[facility] ([facility])[address] [place] [address] Basic metabolic 1998 panelon 07-08-2024 Anion gap [Moles/Vol] 10 mmol/L 3 - 13 mmol/L [facility] Calcium [Mass/Vol] 9 mg/dL 8.4 - 10. 4 mg/dL [facility] Chloride [Moles/Vol] 104 mmol/L 98 - 10 7 mmol/L [facility] CO2 [Moles/Vol] 18 mmol/L Low 22 - 30 mmol/L [facility] Creatinine [Mass/Vol] 0.79 mg/dL 0.66 - 1.25 mg/dL [facility] GFR/1.73 sq M.predicted (S/P/Bld) [Vol rate/Area] - PINF [facility] Comment on above: Calculation based on the Chronic Kidney Disease Epidemiology Collaboration (CKD-EPI) equation refit without adjustment for race Glucose [Mass/Vol] 145 mg/dL High 70 - 100 mg/dL [facility] Interpretation and review of laboratory results Abnormal [facility] Potassium [Moles/Vol] 4 mmol/L 3.5 - 5.1 mmol/L [facility] Sodium [Moles/Vol] 132 mmol/L Low 135 - 145 mmol/L [facility] Urea nitrogen [Mass/Vol] 19 mg/dL 9 - 20 mg/dL [facility] CBC (HEMOGRAM)on 07-08-2024 Erythrocyte distribution width (RBC) [Ratio] 14.4 % Normal 11.5-15.0 [facility] Comment on above: Performed By: #### L [id number] ####Occupancy Specialist: GATO GRAY ([id number])[address] Hematocrit (Bld) [Volume fraction] 32.8 % Low 40.0-52.0 [facility] Comment on above: Performed By: #### L [id number] ####Occupancy Specialist: GATO GRAY ([phone])[address] Hemoglobin (Bld) [Mass/Vol] 10.7 g/dL Low 13.0-18.0 [facility] Comment on above: Performed By: #### L [id number] ####Occupancy Specialist: GATO GRAY ([phone])[facility])[address] [place] [address] MCH (RBC) [Entitic mass] 29.4 pg Normal 26.0-34.0 [facility] Comment on above: Performed By: #### L [id number] ####Occupancy Specialist: GATO GRAY ([phone])[address] MCHC 32.6 % Normal 30.5-36.0 [facility] Comment on above: Performed By: #### L [id number] ####Occupancy Specialist: GATO GRAY ([phone])[facility])[address] [place] [address] MCV (RBC) [Entitic vol] 90.1 fL Normal 77.0-99.0 [facility] Comment on above: Performed By: #### L [id number] ####Occupancy Specialist: GATO GRAY ([phone])[facility])[address] [place] [address] Platelet mean volume (Bld) [Entitic vol] 9.5 fL Normal 9.0-12.7 [facility] Comment on above: Performed By: #### L [id number] ####Occupancy Specialist: GATO GRAY ([phone])[facility])[address] [place] [address] Platelets (Bld) [#/Vol] 156 10*3/uL Normal 140-440 [facility] Comment on above: Performed By: #### L [id number] ####Occupancy Specialist: GATO GRAY ([id number])[facility])[address] [place] [address] RBC (Bld) [#/Vol] 3.64 10*6/uL Low 4.40-5.90 [facility] Comment on above: Performed By: #### L [id number] ####Occupancy Specialist: GATO GRAY ([phone])[facility])[address] [place] [address] WBC (Bld) [#/Vol] 9.0 10*3/uL Normal 3.6-10.7 [facility] Comment on above: Performed By: #### L [id number] ####Occupancy Specialist: GATO GRAY ([phone])[facility])[address] [place] [address] CBC panel Auto (Bld)on 07-08 Erythrocyte distribution width (RBC) [Ratio] 14.4 % 11.5 - 15.0 % [facility] Hematocrit (Bld) [Volume fraction] 32.8 % Low 40.0 - 52.0 % [facility] Hemoglobin (Bld) [Mass/Vol] 10.7 g/dL Low 13.0 - 18.0 g/dL [facility] Interpretation and review of laboratory results Abnormal [facility] MCH (RBC) [Entitic mass] 29.4 pg 26.0 - 34.0 pg [facility] MCHC (RBC) [Mass/Vol] 32.6 % 30.5 - 36.0 % [facility] MCV (RBC) [Entitic vol] 90.1 fL 77.0 - 99.0 fL [facility] Platelet mean volume (Bld) [Entitic vol] 9.5 fL 9.0 - 12.7 fL [facility] Platelets (Bld) [#/Vol] 156 10*3/uL 140 - 440 10*3/uL [facility] RBC (Bld) [#/Vol] 3.64 10*6/uL Low 4.40 - 5.90 10*6/uL [facility] WBC (Bld) [#/Vol] 9 10*3/uL 3.6 - 10.7 10*3/uL [facility] COMPLETE URINALYSISon 2023 BACTERIA (#/HPF) IN URINE Negative Normal Negative [facility] Comment on above: Performed By: #### L [id number] ####Occupancy Specialist: GATO GRAY ([phone])[address] BILIRUBIN, TOTAL PRESENCE IN URINE Negative Normal Negative [facility] Comment on above: Performed By: #### L [id number] ####Occupancy Specialist: GATO GRAY ([phone])[address] Clarity (U) Clear Normal Clear [facility] Comment on above: Performed By: #### L [id number] ####Occupancy Specialist: GATO GRAY ([phone])[address] Color (U) Light Yellow Normal Lt. Yellow [facility] Comment on above: Performed By: #### L [id number] ####Occupancy Specialist: GATO GRAY ([phone])[address] GLUCOSE (MG/DL) IN URINE >1,000 Abnormal Normal (<70) [facility] Comment on above: Performed By: #### L [id number] ####Occupancy Specialist: GATO GRAY ([phone])[facility])[address] [place] [address] HEMOGLOBIN PRESENCE IN URINE 0.03 mg/dL Abnormal Negative [facility] Comment on above: Performed By: #### L [id number] ####Occupancy Specialist: GATO GRAY ([phone])[facility] ([facility])[address] [place] [address] Ketones Ql (U) Trace Abnormal Negative [facility] Comment on above: Performed By: #### L [id number] ####Occupancy Specialist: GATO GRAY ([phone])[facility])[address] [place] [address] LEUKOCYTE ESTERASE PRESENCE IN URINE BY TEST STRIP Negative Normal Negative [facility] Comment on above: Performed By: #### L [id number] ####Occupancy Specialist: GATO GRAY ([phone])[facility] ([facility])[address] [place] [address] [place] MUCUS (#/LPF) IN URINE SEDIMENT Few Normal Negative [facility] Comment on above: Performed By: #### L [id number] ####Occupancy Specialist: GATO GRAY ([phone])[facility])[address] [place] [address] NITRITE PRESENCE IN URINE Negative Normal Negative [facility] Comment on above: Performed By: #### L [id number] ####Occupancy Specialist: GATO GRAY ([phone])[facility] ([facility])[address] [place] [address] pH (U) 5.5 [pH] Normal 5.0-8.0 [facility] Comment on above: Performed By: #### L [id number] ####Occupancy Specialist: GATO GRAY ([phone])[facility])[address] [place] [address] [place] Protein (U) [Mass/Vol] 30 mg/dL Abnormal Negative [facility] [facility] Comment on above: Performed By: #### L [id number] ####Occupancy Specialist: GATO GRAY ([phone])[facility])[address] [place] [address] RBC (#/HPF) IN URINE SEDIMENT 0-2 Normal 0-2 [facility] Comment on above: Performed By: #### L [id number] ####Occupancy Specialist: GATO GRAY ([phone])[facility] ([facility])[address] [place] [address] Specific gravity (U) [Rel density] 1.017 Normal 1.005-1.03 0 [facility] Comment on above: Performed By: #### L [id number] ####Occupancy Specialist: GATO GRAY ([phone])[facility])[address] [place] [address] SQUAMOUS EPITHELIAL CELLS (#/HPF) IN URINE SEDIMENT 0-2 Normal 3-5 [facility] Comment on above: Performed By: #### L [id number] ####Occupancy Specialist: GATO GRAY ([phone])[facility])[address] [place] [address] UROBILINOGEN (MG/DL) IN URINE Normal Normal Normal (0-1) [facility] Comment on above: Performed By: #### L [id number] ####Occupancy Specialist: GATO GRAY ([phone])[facility])[address] [place] [address] WBC (LEUKOCYTE) (#/HPF) IN URINE SEDIMENT 0-2 Normal 0-5 [facility] Comment on above: Performed By: #### L [id number] ####Occupancy Specialist: GATO GRAY ([phone])[facility])[address] [place] [address] CT HEAD WO IV CONTRASTon CT HEAD WO IV CONTRAST Patient Name: AVERY ESPAÑA : 1950 Exam Date/Time: 07/08/2024 04:38 Procedure: CT HEAD WO IV CONTRAST Ordering Provider: STOVALL KATIE Reason For Exam: s/p heparin drip initiation HISTORY: Status post heparin drip initiation. Noncontrast CT is performed. Dose reduction was performed with automated exposure control. Comparison study from 07/07/2024. FINDINGS: 1. Since last exam 22.5 hours ago no definite interval change is seen --- no areas of new intracranial hemorrhage are seen with stable left-sided hygroma, tiny right parietal subdural hematoma unchanged Report Dictated on Workstation: [employer] Electronically Signed By: Adolfo Turner MD Electronically Signed Date/Time: 07/08/2024 4:46 AM EST Best images possible had to rescan due to patient coughing during scan Normal [facility] CT Head WO contraston 2023 Patient Name: AVERY VASQUEZ : 1950 Exam Date/Time: 07/08/2024 04:38 Procedure: CT HEAD WO IV CONTRAST Ordering Provider: STOVALL KATIE Reason For Exam: s/p heparin drip initiation HISTORY: Status post heparin drip initiation. Noncontrast CT is performed. Dose reduction was performed with automated exposure control. Comparison study from 07/07/2024. FINDINGS: 1. Since last exam 22.5 hours ago no definite interval change is seen --- no areas of new intracranial hemorrhage are seen with stable left-sided hygroma, tiny right parietal subdural hematoma unchanged Report Dictated on Electronically Signed By: Adolfo Turner MD Electronically Signed Date/Time: 07/08/2024 4:46 AM EST [facility] Adolfo Turner MD - 07/08/2024 Patient Name: AVERY VASQUEZ : 1950 Exam Date/Time: 07/08/2024 04:38 Procedure: CT HEAD WO IV CONTRAST Ordering Provider: STOVALL KATIE Reason For Exam: s/p heparin drip initiation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 [address] Hemoglobin (Bld) [Mass/Vol] 10.4 g/dL Low 13.0-18.0 [facility] Comment on above: Performed By: #### L [id number] ####Occupancy Specialist: GATO GRAY ([phone])[facility] ([facility])[address] [place] [address] MCH (RBC) [Entitic mass] 29.7 pg Normal 26.0-34.0 [facility] Comment on above: Performed By: #### L [id number] ####Occupancy Specialist: GATO GRAY ([phone])[facility])[address] [place] [address] MCHC 33.8 % Normal 30.5-36.0 [facility] Comment on above: Performed By: #### L [id number] ####Occupancy Specialist: GATO GRAY ([phone])[facility] ([facility])[address] [place] [address] MCV (RBC) [Entitic vol] 88.0 fL Normal 77.0-99.0 [facility] Comment on above: Performed By: #### L [id number] ####Occupancy Specialist: GATO GRAY ([phone])[facility] ([facility])[address] [place] [address] Platelet mean volume (Bld) [Entitic vol] 9.3 fL Normal 9.0-12.7 [facility] Comment on above: Performed By: #### L [id number] ####Occupancy Specialist: GATO GRAY ([phone])[facility])[address] [place] [address] Platelets (Bld) [#/Vol] 136 10*3/uL Low 140-440 [facility] Comment on above: Performed By: #### L [id number] ####Occupancy Specialist: GATO GRAY ([phone])[facility] ([facility])[address] [place] [address] RBC (Bld) [#/Vol] 3.50 10*6/uL Low 4.40-5.90 [facility] Comment on above: Performed By: #### L [id number] ####Occupancy Specialist: GATO GRAY ([phone])[facility] ([facility])[address] [place] [address] WBC (Bld) [#/Vol] 10.0 10*3/uL Normal 3.6-10.7 [facility] Comment on above: Performed By: #### L [id number] ####Occupancy Specialist: GATO GRAY ([phone])[facility] ([facility])[address] [place] [address] CBC panel Auto (Bld)on 07-07 Erythrocyte distribution width (RBC) [Ratio] 14.2 % 11.5 - 15.0 % [facility] Hematocrit (Bld) [Volume fraction] 30.8 % Low 40.0 - 52.0 % [facility] Hemoglobin (Bld) [Mass/Vol] 10.4 g/dL Low 13.0 - 18.0 g/dL [facility] Interpretation and review of laboratory results Abnormal [facility] MCH (RBC) [Entitic mass] 29.7 pg 26.0 - 34.0 pg [facility] MCHC (RBC) [Mass/Vol] 33.8 % 30.5 - 36.0 % [facility] MCV (RBC) [Entitic vol] 88 fL 77.0 - 99.0 fL [facility] Platelet mean volume (Bld) [Entitic vol] 9.3 fL 9.0 - 12.7 fL [facility] Platelets (Bld) [#/Vol] 136 10*3/uL Low 140 - 440 10*3/uL [facility] RBC (Bld) [#/Vol] 3.5 10*6/uL Low 4.40 - 5.90 10*6/uL [facility] WBC (Bld) [#/Vol] 10 10*3/uL 3.6 - 10.7 10*3/uL [facility] COMPREHENSIVE METABOLIC PANE Kev 07-07-2024 Albumin [Mass/Vol] 3.2 g/dL Low 3.5-5.0 [facility] Comment on above: Performed By: #### L [id number], [id number] ####Occupancy Specialist: GATO GRAY ([phone])[facility] ([facility])[address] [place] [address] ALP [Catalytic activity/Vol] 75 U/L Normal 38-126 [facility] Comment on above: Performed By: #### L [id number], LAB17 ####Occupancy Specialist: GATO GRAY ([phone])[facility] ([facility])[address] [place] [address] ALT [Catalytic activity/Vol] 45 U/L Normal 0-49 [facility] Comment on above: Performed By: #### L [id number], [id number] ####Occupancy Specialist: GATO GRAY ([phone])[facility] ([facility])[address] [place] [address] Anion gap [Moles/Vol] 10 mmol/L Normal 3-13 [facility] Comment on above: Performed By: #### L [id number], [id number] ####Occupancy Specialist: GATO GRAY ([phone])[facility] ([facility])[address] [place] [address] AST [Catalytic activity/Vol] 35 U/L Normal 15-46 [facility] Comment on above: Performed By: #### L [id number], LAB17 ####Occupancy Specialist: GATO GRAY ([phone])[facility] ([facility])[address] [place] [address] Bilirubin [Mass/Vol] 0.6 mg/dL Normal 0.2-1.3 [facility] Comment on above: Performed By: #### L [id number], LAB17 ####Occupancy Specialist: GATO GRAY ([phone])[facility])[address] [place] [address] Calcium [Mass/Vol] 8.1 mg/dL Low 8.4-10.4 [facility] Comment on above: Performed By: #### L [id number], LAB17 ####Occupancy Specialist: GATO GRAY ([phone])[facility])[address] [place] [address] Chloride [Moles/Vol] 106 mmol/L Normal 98-107 [facility] Comment on above: Performed By: #### L [id number], LAB17 ####Occupancy Specialist: GATO GRAY ([phone])[facility])[address] [place] [address] CO2 [Moles/Vol] 15 mmol/L Low 22-30 [facility] Comment on above: Performed By: #### L [id number], LAB17 ####Occupancy Specialist: GATO GRAY ([phone])[facility])[address] [place] [address] Creatinine [Mass/Vol] 0.78 mg/dL Normal 0.66-1.25 [facility] Comment on above: Performed By: #### L [id number], LAB17 ####Occupancy Specialist: GATO GRAY ([phone])[facility])[address] [place] [address] GLOMERULAR FILTRATION RATE ML/MIN/1.73 SQ M.PREDICTED >90.0 Normal >60.0 [facility] Comment on above: Result Comment: Calc ulation based on the Chronic Kidney Disease Epidemiology Collaboration (CKD-EPI) equation refit without adjustment for race Performed By: #### L [id number], LAB17 ####Occupancy Specialist: GATO GRAY ([phone])[facility] ([facility])[address] [place] [address] [place] Glucose [Mass/Vol] 162 mg/dL High 70-100 [facility] Comment on above: Performed By: #### L [id number], LAB17 ####Occupancy Specialist: GATO GRAY ([phone])[facility])[address] [place] [address] [place] Potassium [Moles/Vol] 3.4 mmol/L Low 3.5-5.1 [facility] Comment on above: Performed By: #### L [id number], LAB17 ####Occupancy Specialist: GATO GRAY ([phone])[address] Protein [Mass/Vol] 6.1 g/dL Low 6.3-8.2 [facility] Comment on above: Performed By: #### L [id number], LAB17 ####Occupancy Specialist: GATO GRAY ([phone])[facility])[address] [place] [address] Sodium [Moles/Vol] 131 mmol/L Low 135-145 [facility] Comment on above: Performed By: #### L [id number], LAB17 ####Occupancy Specialist: GATO GRAY ([phone])[address] Urea nitrogen [Mass/Vol] 19 mg/dL Normal 9-20 [facility] Comment on above: Performed By: #### L [id number], LAB17 ####Occupancy Specialist: GATO GRAY ([phone])[address] HEAD WO IV CONTRASTon CT HEAD WO IV CONTRAST Patient Name: AVERY ESPAÑA : 1950 Exam Date/Time: 07/07/2024 06:03 Procedure: CT HEAD WO IV CONTRAST Ordering Provider: STOVALL KATIE Reason For Exam: SDH, continuing heparing due to PEs CT HEAD WITHOUT CONTRAST CLINICAL HISTORY: SDH, continuing heparing due to PEs COMPARISON: 06/27/2024 TECHNIQUE: Helical CT of the brain without contrast. Dose reduction was employed with automated exposure control. FINDINGS: Acute Findings: There is trace subdural hemorrhage along the posterior right parietal convexity measuring 3.4 mm in thickness, with no mass effect. Previously noted small amounts of intraparenchymal and subarachnoid hemorrhage have resolved. There is an 8 mm left frontal subdural hygroma which previously measured 5 mm. Chronic Changes: Calcified atherosclerotic plaque in the carotid siphons. Ventricles and sulci: Within normal limits for age. Other: The skull, included paranasal sinuses and orbits are normal. IMPRESSION: 1. Tiny right parietal subdural hematoma. 2. Previously noted small volume subarachnoid hemorrhage and tiny intraparenchymal hematoma have resolved. 3. 8 mm left convexity subdural hygroma previously measured 5 mm. Report Dictated on Electronically Signed By: Edenilson Barnett MD Electronically Signed Date/Time: 07/07/2024 7:31 AM EDT [facility] CT Head WO contraston 2023 1. Tiny right parietal subdural hematoma. 2. Previously noted small volume subarachnoid hemorrhage and tiny intraparenchymal hematoma have resolved. 3. 8 mm left convexity subdural hygroma previously measured 5 mm. Report Dictated on Electronically Signed By: Edenilson Barnett MD Electronically Signed Date/Time: 07/07/2024 7:31 AM EDT [facility] [employer] [facility] Name: AV[facility]ASQUEZ : 1950 [id number] Exam Date/Time: 07/07/2024 06:03 Procedure: CT HEAD WO IV CONTRAST Ordering Provider: STOVALL KATIE Reason For Exam: SDH, continuing heparing due to PEs CT HEAD WITHOUT CONTRAST CLINICAL HISTORY: SDH, continuing heparing due to PEs COMPARISON: 06/27/2024 TECHNIQUE: Helical CT of the brain without contrast. Dose reduction was employed with automated exposure control. FINDINGS: Acute Findings: There is trace subdural hemorrhage along the posterior right parietal convexity measuring 3.4 mm in thickness, with no mass effect. Previously noted small amounts of intraparenchymal and subarachnoid hemorrhage have resolved. There is an 8 mm left frontal subdural hygroma which previously measured 5 mm. Chronic Changes: Calcified atherosclerotic plaque in the carotid siphons. Ventricles and sulci: Within normal limits for age. Other: The skull, included paranasal sinuses and orbits are normal. [facility] [employer] Edenilson Barnett M D - 07/07/2024 Patient Name: AVERY VASQUEZ : 1950 [facility]#: [id number] Exam Date/Time: 07/07/2024 06:03 Procedure: CT HEAD WO IV CONTRAST Ordering Provider: STOVALL KATIE Reason For Exam: SDH, continuing heparing due to PEs CT HEAD WITHOUT CONTRAST CLINICAL HISTORY: SDH, continuing heparing due to PEs COMPARISON: 06/27/2024 TECHNIQUE: Helical CT of the brain without contrast. Dose reduction was employed with automated exposure control. FINDINGS: Acute Findings: There is trace subdural hemorrhage along the posterior right parietal convexity measuring 3.4 mm in thickness, with no mass effect. Previously noted small amounts of intraparenchymal and subarachnoid hemorrhage have resolved. There is an 8 mm left frontal subdural hygroma which previously measured 5 mm. Chronic Changes: Calcified atherosclerotic plaque in the carotid siphons. Ventricles and sulci: Within normal limits for age. Other: The skull, included paranasal sinuses and orbits are normal. IMPRESSION: 1. Tiny right parietal subdural hematoma. 2. Previously noted small volume subarachnoid hemorrhage and tiny intraparenchymal hematoma have resolved. 3. 8 mm left convexity subdural hygroma previously measured 5 mm. Report Dictated on Electronically Signed By: Edenilson Barnett MD Electronically Signed Date/Time: 07/07/2024 7:31 AM EDT [facility] Radiology Study observation (narrative) [facility] CT Head WO contrastOrdered B y: Edenilson Barnett on 07-07-2024 [facility] Work Phone: Comprehensive metabolic 1998 panelon 07-07-2024 Albumin [Mass/Vol] 3.2 g/dL Low 3.5 - 5.0 g/dL [facility] ALP [Catalytic activity/Vol] 75 U/L 38 - 126 U/L [facility] ALT [Catalytic activity/Vol] 45 U/L 0 - 49 U/L [facility] Anion gap [Moles/Vol] 10 mmol/L 3 - 13 mmol/L [facility] AST [Catalytic activity/Vol] 35 U/L 15 - 46 U/L [facility] Bilirubin [Mass/Vol] 0.6 mg/dL 0.2 - 1 .3 mg/dL [facility] Calcium [Mass/Vol] 8.1 mg/dL Low 8.4 - 10. 4 mg/dL [facility] Chloride [Moles/Vol] 106 mmol/L 98 - 10 7 mmol/L [facility] CO2 [Moles/Vol] 15 mmol/L Low 22 - 30 mmol/L [facility] Creatinine [Mass/Vol] 0.78 mg/dL 0.66 - 1.25 mg/dL [facility] GFR/1.73 sq M.predicted (S/P/Bld) [Vol rate/Area] - PINF [facility] Comment on above: Calculation based on the Chronic Kidney Disease Epidemiology Collaboration (CKD-EPI) equation refit without adjustment for race Glucose [Mass/Vol] 162 mg/dL High 70 - 100 mg/dL [facility] Interpretation and review of laboratory results Abnormal [facility] Potassium [Moles/Vol] 3.4 mmol/L Low 3.5 - 5.1 mmol/L [facility] Protein [Mass/Vol] 6.1 g/dL Low 6.3 - 8.2 g/dL [facility] Sodium [Moles/Vol] 131 mmol/L Low 135 - 145 mmol/L [facility] Urea nitrogen [Mass/Vol] 19 mg/dL 9 - 20 mg/dL [facility] Consulton 07-07-2024 Consult Ortho Consult Patient: Avery Vasquez Date of : 1950 Acct: [id number] PCP: Aidan Argueta MD Date of Admission: 07/06/2024 Date of Service: Pt seen/examined on 07/07/2024 Chief Complaint: R clavicle fx follow up History Of Present Illness: This is a 74 y.o. male who was scheduled for his 1 week followup visit with Dr. Stroud but unable to go given his current hospital stay. Patient states that his pain has been well-controlled. He states that he has remained in his sling since initial injury. His current hospital admission is for workup following a syncopal event in the shower. He states that during this syncopal event, he does not believe that he further injured his right shoulder/clavicle. His recent hospital admission on 06/26/24 was for being run over by cow. At that time, he broke his right clavicle and had significant ecchymosis to his left thigh where the cow stepped on him. He states that the pain in his left thigh has continued to improve and he is able to move his knee without much issue. Past orthopedic surgical history significant for bilateral shoulder arthroplasty and bilateral knee arthroplasty. He also states that he acquired a large left thigh hematoma following his left total knee arthroplasty. The hematoma had to be evacuated surgically. He denies tobacco, alcohol, or illicit drug use. Patient ambulation status: no difficulty Antiplatelets/Anticoagulat ion includes: none Hx from chart and/or Pt. Past Medical History: No past medical history on file. Past Surgical History: No past surgical history on file. Home Medications: Prior to Admission medications Medication Sig Start Date End Date Taking? Authorizing Provider atorvastatin (Lipitor) 10 MG tablet Take 10 mg by mouth Nightly. Historical Provider, bacitracin 500 UNIT/GM ointment Apply topically 3 times daily. 06/27/24 Price Monae MD Calcium Carbonate-Vit D-Min (Calcium 600+D3 Plus Minerals) 600-800 MG-UNIT tablet Take 1 tablet by mouth daily. Historical Provider, dapagliflozin (Farxiga) 10 MG tablet Take 10 mg by mouth daily. Historical Provider, dulaglutide (Trulicity) 0.75 MG/0.5ML Inject 0.75 mg under the skin 1 (one) time per week. Historical Provider, glimepiride (Amaryl) 1 MG tablet Take 1 mg by mouth daily (with breakfast). Historical Provider, levETIRAcetam (Keppra) 500 MG tablet Take 1 tablet (500 mg) by mouth 2 times daily for 12 doses. 06/27/24 07/03/24 Price Monae MD Lidocaine 4 % patch Place 1 patch on the skin daily. Patient not taking: Reported on 07/03/2024 06/28/24 07/28/24 Price Monae MD metFORMIN (Glucophage) 500 MG tablet Take 500 mg by mouth in the morning and 500 mg in the evening. Take with meals. Historical Provider, Multiple Vitamins-Minerals (MULTIVITAMIN ADULT, MINERALS, PO) Take 1 tablet by mouth daily. Historical Provider, oxyCODONE (Roxicodone) 5 MG immediate release tablet Take 1 tablet (5 mg) by mouth in the morning and 1 tablet (5 mg) in the evening. Do all this for 3 days. 06/27/24 06/30/24 Price Monae MD tamsulosin (Flomax) 0.4 MG 24 hr capsule Take 0.4 mg by mouth Nightly. Historical Provider, valsartan (Diovan) 160 MG tablet Take 160 mg by mouth 2 times daily. Historical Provider, Current Hospital Medications: Current Facility-Administered Medications: acetaminophen (Ofirmev) IVPB 1,000 mg, 1,000 mg, IntraVENous, q8h, Poncho Cortez MD, Last Rate: 400 mL/hr at 07/07/24 1452, 1,000 mg at 07/07/24 1452 dextrose 5 % infusion, 100 mL/hr, IntraVENous, PRN, Poncho Cortez MD dextrose 50 % solution 12.5 g, 12.5 g, IntraVENous, PRN, Poncho Cortez MD glucagon (human recombinant) injection 1 mg, 1 mg, IntraMUSCular, PRN, Poncho Cortez MD glucose oral gel 15 g, 15 g, Oral, PRN, Poncho Cortez MD heparin 25,000 units in dextrose 5% 250mL infusion (premix), 5-30 Units/kg/hr, IntraVENous, Continuous, Poncho Cortez MD, Last Rate: 18 mL/hr at 07/07/24 1421, 17 Units/kg/hr at 07/07/24 1421 HYDROmorphone (Dilaudid) injection 0.25 mg, 0.25 mg, IntraVENous, q3h PRN OR HYDROmorphone (Dilaudid) injection 0.5 mg, 0.5 mg, IntraVENous, q3h PRN, Poncho Cortez MD Insulin Lispro (Humalog) injection 0-12 Units, 0-12 Units, SubCUTAneous, TID WC, 2 Units at 07/07/24 1153 AND Insulin Lispro (Humalog) injection 0-12 Units, 0-12 Units, SubCUTAneous, Nightly, Poncho Cortez MD, 2 Units at 07/07/24 0053 ipratropium-albuterol (Duo-Neb) 0.5-2.5 mg/3 mL nebulizer solution 3 mL, 3 mL, Nebulization, BID, Poncho Cortez MD, 3 mL at 07/07/24 0907 mupirocin (Bactroban) 2 % ointment 1 Application, 1 Application, Nasal, BID, Poncho Cortez MD, 1 Application at 07/07/24 0817 naloxone (Narcan) injection 0.4 mg, 0.4 mg, IntraVENous, q5 min PRN, Diana Stovall MD ondansetron ODT (Zofran-ODT) disintegrating tablet 4 mg, 4 mg, Oral, q8h PRN OR ondansetron (Zofran) injec (more content not included)... Normal [facility] Consult PULMONOLOGY CONSULT NOTE 07/07/2024 10:13 AM Reason for consult: Pulmonary emboli Inpatient consult to Pulmonology Consult performed by: Tiffany Zaragoza DO Consult ordered by: Hussein Paredes, CREEL CLERK - MORALE OFFICER Subjective: Admit Date: 07/06/2024 PCP: Aidan Argueta MD HPI: Avery Vasquez is a 74-year-old male with history of HTN, HLD, DM, recent admission for traumatic right SAH who represented with weakness, admitted with multiple segmental pulmonary emboli. Patient reported feeling well until yesterday when he began having fatigue and weakness. While showering stated that his legs gave out and he slid down the shower wall. Denied any syncope. Denied any chest pain, shortness of breath, chest pressure, lightheadedness, prior VTE, recent fevers, chills, cough. Currently on heparin drip and feeling improved. Up-to-date with colonoscopies. Minimal remote cigar smoking history. Past Medical History: No past medical history on file. Past Surgical History: No past surgical history on file. Allergies: Allergies Allergen Reactions Bactrim [Sulfamethoxazole-Trimetho prim] Hives Hydrocodone-Acetaminophen Nausea And Vomiting Lisinopril Cough Tramadol Rash and Dizziness Social History: Social History Substance and Sexual Activity Alcohol Use Yes Comment: occ Social History Substance and Sexual Activity Drug Use Never Social History Tobacco Use Smoking Status Never Smokeless Tobacco Never Family History: No family history on file. Review of Systems Constitutional: Positive for fatigue. Negative for chills and fever. HENT: Negative. Respiratory: Negative. Cardiovascular: Positive for leg swelling. Neurological: Negative. Medications: Scheduled Meds:acetaminophen, 1,000 mg, IntraVENous, q8h insulin lispro, 0-12 Units, SubCUTAneous, TID WC And insulin lispro, 0-12 Units, SubCUTAneous, Nightly ipratropium-albuterol, 3 mL, Nebulization, BID mupirocin, 1 Application, Nasal, BID Continuous Infusions:heparin, 5-30 Units/kg/hr, Last Rate: 17 Units/kg/hr (07/07/24 0720) sodium chloride, 100 mL/hr, Last Rate: 100 mL/hr (07/06/24 2312) Labs: Available labs were personally reviewed. Some notable findings are listed here. CBC: Recent Labs 07/06/24 2301 WBC 24.3* HGB 11.9* PLT 239 BMP: Recent Labs 07/06/24 2253 NA 132* K 4.9 CL 106 CO2 17* BUN 21* CREATININE 0.89 GLUCOSE 148* Hepatic: No results for input(s): AST, ALT, BILITOT, ALKPHOS in the last 72 hours. No lab exists for component: ALB Troponin: Recent Labs 07/07/24 0643 TROPONINI 0.066* BNP: Recent Labs 07/06/24 2253 BNP 423* : No results for input(s): CHOL, HDL in the last 72 hours. No lab exists for component: LDLCALCU INR: No results for input(s): INR in the last 72 hours. Imaging: Available studies were personally reviewed. Salient findings are summarized in HPI and A/P Objective: Vitals: BP 131/63 Pulse 92 Temp 36.8 ?C (98.2 ?F) (Temporal) Resp 23 SpO2 94% Physical Exam Vitals reviewed. Constitutional: General: He is not in acute distress. Appearance: Normal appearance. HENT: Head: Normocephalic and atraumatic. Mouth/Throat: Mouth: Mucous membranes are moist. Eyes: General: No scleral icterus. Extraocular Movements: Extraocular movements intact. Cardiovascular: Rate and Rhythm: Normal rate and regular rhythm. Pulmonary: Effort: Pulmonary effort is normal. No respiratory distress. Breath sounds: Normal breath sounds. No wheezing or rales. Musculoskeletal: Comments: Left thigh bruising and scarring Skin: General: Skin is warm and dry. Neurological: Mental Status: He is alert and oriented to person, place, and time. Psychiatric: Mood and Affect: Mood normal. Assessment and Plan: Segmental bilateral pulmonary emboli SDH Recent admission for SAH, multiple right rib fractures and right clavicular fracture Hypoxemic respiratory failure Chest CTA 07/06/2024 from [facility], report in chart, positive for segmental PE in the bilateral lower lobes, right upper lobe, and lingula. Please request images to review. Hemodynamically stable. Troponins downtrending. TTE and lower extremity Dopplers pending. Discussed that VTE appears to be provoked in setting of recent trauma. Up-to-date with routine cancer screenings. Currently on heparin drip. NCC following, plan for follow-up head CT in 24 hours to ensure stability of SDH. 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 If unable to continue OAC outpatient, may benefit from IVC filter if dopplers are positive. Start bowel regimen to avoid straining. Noted with leukocytosis, unclear etiology. Pending x-rays of left leg as patient reported recently being kicked by a cow, noted with bruising and tenderness. Defer infectious evaluation to primary team. DC supplemental O2 Dis (more content not included)... Normal [facility] Consult Reason For Consult PE, history of SDH History Of Present Illness Avery Vasquez is a 74 y.o. male presenting with a syncopal episode, found to have a B PE. He has a history of recent fall with small SDH. Past Medical History He has no past medical history on file. Surgical History He has no past surgical history on file. Social History He reports that he has never smoked. He has never used smokeless tobacco. He reports current alcohol use. He reports that he does not use drugs. Allergies Bactrim [sulfamethoxazole-trimetho prim], Hydrocodone-acetaminophen, Lisinopril, and Tramadol Medications Medications Prior to Admission Medication Sig Dispense Refill Last Dose/Taking atorvastatin (Lipitor) 10 MG tablet Take 10 mg by mouth Nightly. bacitracin 500 UNIT/GM ointment Apply topically 3 times daily. 14 g 0 Calcium Carbonate-Vit D-Min (Calcium 600+D3 Plus Minerals) 600-800 MG-UNIT tablet Take 1 tablet by mouth daily. dapagliflozin (Farxiga) 10 MG tablet Take 10 mg by mouth daily. dulaglutide (Trulicity) 0.75 MG/0.5ML Inject 0.75 mg under the skin 1 (one) time per week. glimepiride (Amaryl) 1 MG tablet Take 1 mg by mouth daily (with breakfast). levETIRAcetam (Keppra) 500 MG tablet Take 1 tablet (500 mg) by mouth 2 times daily for 12 doses. 12 tablet 0 Lidocaine 4 % patch Place 1 patch on the skin daily. (Patient not taking: Reported on 07/03/2024) 30 patch 0 metFORMIN (Glucophage) 500 MG tablet Take 500 mg by mouth in the morning and 500 mg in the evening. Take with meals. Multiple Vitamins-Minerals (MULTIVITAMIN ADULT, MINERALS, PO) Take 1 tablet by mouth daily. [] oxyCODONE (Roxicodone) 5 MG immediate release tablet Take 1 tablet (5 mg) by mouth in the morning and 1 tablet (5 mg) in the evening. Do all this for 3 days. 6 tablet 0 tamsulosin (Flomax) 0.4 MG 24 hr capsule Take 0.4 mg by mouth Nightly. valsartan (Diovan) 160 MG tablet Take 160 mg by mouth 2 times daily. Review of Systems Denies KAUFMAN Physical Exam OE spon + FC O x 3 5/5 B UE and LE Last Recorded Vitals Blood pressure 131/63, pulse 92, temperature 36.8 ?C (98.2 ?F), temperature source Temporal, resp. rate 23, SpO2 94%. Relevant Results CT head shows small L subdural hygroma, no mass effect, no shift. No acute blood. Assessment/Plan Principal Problem: Acute pulmonary embolism without acute cor pulmonale, unspecified pulmonary embolism type (HCC) No surgery is needed for his current CT head. He is not a candidate for surgery should it become necessary secondary to his PE. Ok for anticoagulation per ICU team. Normal [facility] Consult NEUROCRITICAL CARE C ONSULT NOTE Patient Name: Avery Vasquez Patient : 1950 Acct: [id number] Date of Admission: 07/06/2024 Room/Bed: T2/T2 A PCP: Aidan Argueta MD Chief Complaint: need for AC post ICH History of Present Ilness: Avery Vasquez is a 74 yo M who was recently admitted after a TBI who presents against to the hospital after a near syncopal event found to have bilateral segmental PEs. The patient is neurologically intact. NCC was consulted along with NSG for risk stratification of AC in the setting of intracranial findings. Past Medical History: NA Past Surgical History: NA Home Medications: Prior to Admission medications Medication Sig Start Date End Date Taking? Authorizing Provider atorvastatin (Lipitor) 10 MG tablet Take 10 mg by mouth Nightly. Historical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 AVERY VASQUEZ : 1950 Exam Date/Time: 07/07/2024 11:08 Procedure: XR CLAVICLE RIGHT Ordering Provider: STOVALL KATIE Reason For Exam: eval fx dislplacement EXAMINATION: XR right clavicle. EXAM DATE AND TIME: 07/07/2024 11:08 AM EDT INDICATION: eval fx dislplacement ADDITIONAL INFORMATION: 74-year-old male with suspicion for fracture displacement of the right clavicle presents for evaluation COMPARISON: Right clavicular radiographs dated 06/26/2024 TECHNIQUE: AP and oblique views of the right clavicle were obtained. FINDINGS: Redemonstration of comminuted distal right clavicular fracture now with increased displacement of one of the distal fracture fragments compared to the prior study. A 1.4 cm fragment of the distal right clavicle appears angulated cranially, new compared to the prior study. No other fracture or dislocation is seen. The patient is status post reverse right total shoulder arthroplasty. Imaged portions of the orthopedic hardware appear intact without evidence of failure. The bones are osteopenic. IMPRESSION: Increasing displacement of a fragment of known distal right clavicular fractures. Report Dictated on Electronically Signed By: Ramy Anaya MD Electronically Signed Date/Time: 07/07/2024 11:27 AM EDT [facility] XR Chest Single viewon 07-07 Chronic interstitial changes. There may be mild superimposed pulmonary vascular congestion. Right distal clavicular fracture. Report Dictated on Electronically Signed By: Bert Smith MD Electronically Signed Date/Time: 07/07/2024 7:01 PM EDT [facility] Patient Name: AVERY VASQUEZ : 1950 Exam Date/Time: 07/07/2024 18:29 Procedure: XR CHEST 1 VIEW Ordering Provider: REIS NATHAN Reason For Exam: shortness of breath PORTABLE CHEST X-RAY CLINICAL INDICATION: shortness of breath A portable frontal view of the chest was obtained. COMPARISON: None FINDINGS: Heart size is within normal limits. There is coarsening of the interstitial lung markings which is at least partially chronic. There may be mild superimposed pulmonary vascular congestion. There are degenerative changes of the thoracic spine. There is a mildly displaced left clavicular fracture. 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 [facility] Bert Smith MD - 07/07/2024 Patient Name: AVERY VASQUEZ : 1950 Exam Date/Time: 07/07/2024 18:29 Procedure: XR CHEST 1 VIEW Ordering Provider: REIS NATHAN Reason For Exam: shortness of breath PORTABLE CHEST X-RAY CLINICAL INDICATION: shortness of breath A portable frontal view of the chest was obtained. COMPARISON: None FINDINGS: Heart size is within normal limits. There is coarsening of the interstitial lung markings which is at least partially chronic. There may be mild superimposed pulmonary vascular congestion. There are degenerative changes of the thoracic spine. There is a mildly displaced left clavicular fracture. 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 IMPRESSION: Chronic interstitial changes. There may be mild superimposed pulmonary vascular congestion. Right distal clavicular fracture. Report Dictated on Electronically Signed By: Bert Smith MD Electronically Signed Date/Time: 07/07/2024 7:01 PM EDT [facility] Radiology Study observation (narrative) [facility] XR Chest Single viewOrdered By: Bert Smith on 07-07-2024 [facility] XR Clavicle - right Viewson 07-07-2024 Increasing displacem ent of a fragment of known distal right clavicular fractures. Report Dictated on Electronically Signed By: Ramy Anaya MD Electronically Signed Date/Time: 07/07/2024 11:27 AM EDT [facility] Patient Name: AVERY VASQUEZ : 1950 Exam Date/Time: 07/07/2024 11:08 Procedure: XR CLAVICLE RIGHT Ordering Provider: STOVALL KATIE Reason For Exam: eval fx dislplacement EXAMINATION: XR right clavicle. EXAM DATE & TIME: 07/07/2024 11:08 AM EDT INDICATION: eval fx dislplacement ADDITIONAL INFORMATION: 74-year-old male with suspicion for fracture displacement of the right clavicle presents for evaluation COMPARISON: Right clavicular radiographs dated 06/26/2024 TECHNIQUE: AP and oblique views of the right clavicle were obtained. FINDINGS: Redemonstration of comminuted distal right clavicular fracture now with increased displacement of one of the distal fracture fragments compared to the prior study. A 1.4 cm fragment of the distal right clavicle appears angulated cranially, new compared to the prior study. No other fracture or dislocation is seen. The patient is status post reverse right total shoulder arthroplasty. Imaged portions of the orthopedic hardware appear intact without evidence of failure. The bones are osteopenic. [facility] Ramy Anaya MD - 07/07/2024 [facility] Name: [facility]QUE[facility] : 1950 [id number] Exam Date/Time: 07/07/2024 11:08 Procedure: XR CLAVICLE RIGHT Ordering Provider: STOVALL KATIE Reason For Exam: eval fx dislplacement EXAMINATION: XR right clavicle. EXAM DATE & TIME: 07/07/2024 11:08 AM EDT INDICATION: eval fx dislplacement ADDITIONAL INFORMATION: 74-year-old male with suspicion for fracture displacement of the right clavicle presents for evaluation COMPARISON: Right clavicular radiographs dated 06/26/2024 TECHNIQUE: AP and oblique views of the right clavicle were obtained. FINDINGS: Redemonstration of comminuted distal right clavicular fracture now with increased displacement of one of the distal fracture fragments compared to the prior study. A 1.4 cm fragment of the distal right clavicle appears angulated cranially, new compared to the prior study. No other fracture or dislocation is seen. The patient is status post reverse right total shoulder arthroplasty. Imaged portions of the orthopedic hardware appear intact without evidence of failure. The bones are osteopenic. IMPRESSION: Increasing displacement of a fragment of known distal right clavicular fractures. Report Dictated on Electronically Signed By: Ramy Anaya MD Electronically Signed Date/Time: 07/07/2024 11:27 AM EDT [facility] Radiology Study observation (narrative) [facility] XR FEMUR 1 VW LEFTon 024 XR FEMUR 1 VW LEFT Patient Name: AVERY VASQUEZ : 1950 Exam Date/Time: 07/07/2024 11:08 Procedure: XR FEMUR 1 VW LEFT Ordering Provider: STOVALL KATIE Reason For Exam: Left femur injury EXAMINATION: XR left femur. EXAM DATE AND TIME: 07/07/2024 11:08 AM EDT INDICATION: Left femur injury ADDITIONAL INFORMATION: 74-year-old male with a provided history of left femur injury presents for evaluation COMPARISON: None TECHNIQUE: AP views of the left femur were obtained. FINDINGS: No acute fracture or traumatic dislocation is identified. The patient is status post bilateral total knee arthroplasties, with the right only partially imaged. Imaged portions of the orthopedic hardware appears intact without evidence of failure. The bones are osteopenic. 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 The bones are osteopenic. Phleboliths project over the pelvis. IMPRESSION: No acute osseous abnormality identified. Degenerative change and osteopenia. Consider follow-up PA and lateral views of the left femur for persistent symptomology. Report Dictated on Electronically Signed By: Ramy Anaya MD Electronically Signed Date/Time: 07/07/2024 11:30 AM EDT Normal [facility] XR Femur - left Viewson No acute osseous abnormality identified. Degenerative change and osteopenia. Consider follow-up PA and lateral views of the left femur for persistent symptomology. Report Dictated on Electronically Signed By: Ramy Anaya MD Electronically Signed Date/Time: 07/07/2024 11:30 AM EDT [facility] Patient Name: AVERY VASQUEZ : 1950 Exam Date/Time: 07/07/2024 11:08 Procedure: XR FEMUR 1 VW LEFT Ordering Provider: STOVALL KATIE Reason For Exam: Left femur injury EXAMINATION: XR left femur. EXAM DATE & TIME: 07/07/2024 11:08 AM EDT INDICATION: Left femur injury ADDITIONAL INFORMATION: 74-year-old male with a provided history of left femur injury presents for evaluation COMPARISON: None TECHNIQUE: AP views of the left femur were obtained. FINDINGS: No acute fracture or traumatic dislocation is identified. The patient is status post bilateral total knee arthroplasties, with the right only partially imaged. Imaged portions of the orthopedic hardware appears intact without evidence of failure. The bones are osteopenic. 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 The bones are osteopenic. Phleboliths project over the pelvis. [facility] Ramy Anaya MD - 07/07/2024 Patient Name: AVERY [facility]ASQUEZ : 1950 [id number] Exam Date/Time: 07/07/2024 11:08 Procedure: XR FEMUR 1 VW LEFT Ordering Provider: STOVALL KATIE Reason For Exam: Left femur injury EXAMINATION: XR left femur. EXAM DATE & TIME: 07/07/2024 11:08 AM EDT INDICATION: Left femur injury ADDITIONAL INFORMATION: 74-year-old male with a provided history of left femur injury presents for evaluation COMPARISON: None TECHNIQUE: AP views of the left femur were obtained. FINDINGS: No acute fracture or traumatic dislocation is identified. The patient is status post bilateral total knee arthroplasties, with the right only partially imaged. Imaged portions of the orthopedic hardware appears intact without evidence of failure. The bones are osteopenic. 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 The bones are osteopenic. Phleboliths project over the pelvis. IMPRESSION: No acute osseous abnormality identified. Degenerative change and osteopenia. Consider follow-up PA and lateral views of the left femur for persistent symptomology. Report Dictated on Electronically Signed By: Ramy Anaya MD Electronically Signed Date/Time: 07/07/2024 11:30 AM EDT [facility] Study observation (narrative) [facility] XR Femur - left ViewsOrdered By: Ramy Anaya on 07-07-2024 [facility] Work Phone: aPTT Coag (Bld) [Time]on aPTT Coag (PPP) [Time] 58.4 s High 20.0 - 30.5 s [facility] Interpretation and review of laboratory results Abnormal [facility] NOTE: The therapeuti c time for Heparin anticoagulation, based on Xa activity inhibition, is an APTT of 46-80 seconds. [facility] aPTT Coag (PPP) [Time] 57.5 s High 20.0 - 30.5 s [facility] Interpretation and review of laboratory results Abnormal [facility] NOTE: The therapeuti c time for Heparin anticoagulation, based on Xa activity inhibition, is an APTT of 46-80 seconds. [facility] aPTT Coag (PPP) [Time] 44.5 s High 20.0 - 30.5 s [facility] Interpretation and review of laboratory results Abnormal [facility] NOTE: The therapeuti c time for Heparin anticoagulation, based on Xa activity inhibition, is an APTT of 46-80 seconds. [facility] aPTT Coag (PPP) [Time] 33.3 s High 20.0 - 30.5 s [facility] Interpretation and review of laboratory results Abnormal [facility] NOTE: The therapeuti c time for Heparin anticoagulation, based on Xa activity inhibition, is an APTT of 46-80 seconds. [facility] [id number] 07-06-2024 [id number] PE Response Team Tri age Brief HPI: This is a 74 y.o M with a PMH of HTN, HLD and DM who was recently treated at [facility] from 06/26 to 06/27 for right SDH, Multiple right rib fractures, and right distal clavicle fracture. Patient presented back to [place] ED with syncopal episode. He was tachycardic and tachypneic and hypoxic requiring 3L NC. Pert team activated by Dr. Stovall who reported that OSH lab work revealed no elevation in troponin and CTA chest showed b/l segmental lower lobe and right upper lobe, but no heart strain. Patient transferred to [facility] for further care. Hemodynamic instability: No Notable vital signs: None noted RV Strain: No Troponin >0.120: No No results found for: TROPONINI Risk Factors Yes [] Saddle embolism or occlusive main PA emboli [] High flow oxygen need or respiratory distress [x] Syncope [] Altered mental status (disorientation, lethargy, stupor, coma) Notable Comorbidities No [] Cancer (previous or active) [] Heart failure [] Chronic lung disease [] Concomitant DVT [] Recurrent VTE [] VTE already on anticoagulation Contraindication to Anticoagulation (AC) Contraindication to Thrombolytics Yes Yes [] Active, clinically significant bleeding [] Severe uncontrolled hypertension [] Anticipated or recent neuraxial anesthesia [] Invasive procedure or OB delivery Consult Neurocritical Care on-call attending before initiating anticoagulation if: [] Ischemic stroke within 3 months [x] Recent intracranial hemorrhage [] Structural cerebrovascular lesion or intracranial neoplasm Relative contraindications for anticoagulation -- if any of the below, consult on-call Trauma attending prior to initiating anticoagulation: [] Traumatic brain injury, including head trauma with facial fractures and negative head CT [] Spinal fractures and/or spinal cord injury [] Solid organ injuries [] Trauma-induced coagulopathy [x] Geriatric trauma [] Hemothorax [] Cardiac injuries [] Pelvic fracture(s) [] Multiple extremity fractures [] Active bleeding (excluding menses) [] Severe uncontrolled hypertension [] Significant head injury or facial trauma within the last 3 months [] Recent intracranial or spinal surgery [] Possible aortic dissection Consult Neurocritical Care on-call attending before initiating thrombolysis if: [] Ischemic stroke within 3 months [x] Recent intracranial hemorrhage [] Structural cerebrovascular lesion or intracranial neoplasm considerations: [] Patient is , tenecteplase is contraindicated Assessment/Recommendation: Low Risk PE Anticoagulation Recommendations: Eliquis 10mg BID x 7 days followed by 5mg BID, however patient with recent SDH. Trauma services has discussed the case with Neuro CC and NSGY, and have started patient on a heparin drip with no bolus. Care Plan Recommendations: LOW RISK PE: Hestia score 1+ Disposition Recommendations: -Admit to inpatient/observation -Pulmonology consult Admitted to T2ICU. PE protocol orders placed by PERT [x] Serial troponin q4h x 3 [x] STAT BNP and again in AM [x] Formal 2D Echo [] Lower extremity duplex -- symptomatic DVT only [] Interventional Cardiology consult [x] Pulmonary consult [] PE Clinic Referral -- follow-up appointment on AVS This consultation was completed remotely. The above information is based on the HPI and information provided by the primary service. Recommendations for PE treatment reflect this information and final treatment decisions and disposition are deferred to the clinical judgment of the primary service. Normal [facility] APTTon 07-06-2024 aPTT Coag (Bld) [Time] 26.5 s Normal 20.0-30.5 [facility] Comment on above: Result Comment: SONYA Gambino COMMENTS: NOTE: The therapeutic time for Heparin anticoagulation, based on Xa activity inhibition, is an APTT of 46-80 seconds. Performed By: #### L [id number] ####Occupancy Specialist: GATO GRAY ([phone])[facility] ([facility])[address] [place] [address] BASIC METABOLIC PANELon 11-0 Anion gap [Moles/Vol] 8 mmol/L Normal 3-13 [facility] Comment on above: Performed By: #### L AB15, [id number], [id number] ####Occupancy Specialist: GATO GRAY ([phone])[facility] ([facility])[address] [place] [address] Calcium [Mass/Vol] 9.7 mg/dL Normal 8.4-10.4 [facility] Comment on above: Performed By: #### L AB15, [id number], [id number] ####Occupancy Specialist: GATO GRAY ([phone])[facility] ([facility])[address] [place] [address] Chloride [Moles/Vol] 106 mmol/L Normal 98-107 [facility] Comment on above: Performed By: #### L AB15, [id number], [id number] ####Occupancy Specialist: GATO GRAY ([phone])[facility])[address] [place] [address] CO2 [Moles/Vol] 17 mmol/L Low 22-30 [facility] Comment on above: Performed By: #### L AB15, [id number], [id number] ####Occupancy Specialist: GATO GRAY ([phone])[facility])[address] [place] [address] Creatinine [Mass/Vol] 0.89 mg/dL Normal 0.66-1.25 [facility] Comment on above: Performed By: #### Dalila AB15, [id number], [id number] ####Occupancy Specialist: GATO GRAY ([phone])[facility])[address] [place] [address] GLOMERULAR FILTRATION RATE ML/MIN/1.73 SQ M.PREDICTED 89.9 mL/min/1.73m*2 Normal >60.0 [facility] Comment on above: Result Comment: Calc ulation based on the Chronic Kidney Disease Epidemiology Collaboration (CKD-EPI) equation refit without adjustment for race ORDER COMMENTS: Moderately Hemolyzed. Interpret K+, GLUC with caution. Performed By: #### L AB15, [id number], [id number] ####Occupancy Specialist: GATO GRAY ([phone])[facility])[address] [place] [address] Glucose [Mass/Vol] 148 mg/dL High 70-100 [facility] Comment on above: Performed By: #### Dalila AB15, [id number], [id number] ####Occupancy Specialist: GATO GRAY ([phone])[facility])[address] [place] [address] Potassium [Moles/Vol] 4.9 mmol/L Normal 3.5-5.1 [facility] Comment on above: Performed By: #### Dalila AB15, [id number], [id number] ####Occupancy Specialist: GATO GRAY ([phone])[facility])[address] [place] [address] [place] Sodium [Moles/Vol] 132 mmol/L Low 135-145 [facility] Comment on above: Performed By: #### L AB15, [id number], [id number] ####Occupancy Specialist: GATO GRAY ([phone])[facility])[address] [place] [address] [place] Urea nitrogen [Mass/Vol] 21 mg/dL High 9-20 [facility] Comment on above: Performed By: #### L AB15, [id number], [id number] ####Occupancy Specialist: GATO GRAY ([phone])[facility])[address] [place] [address] Basic metabolic 1998 panelon 07-06-2024 Anion gap [Moles/Vol] 8 mmol/L 3 - 13 mmol/L [facility] Calcium [Mass/Vol] 9.7 mg/dL 8.4 - 10. 4 mg/dL [facility] Chloride [Moles/Vol] 106 mmol/L 98 - 10 7 mmol/L [facility] CO2 [Moles/Vol] 17 mmol/L Low 22 - 30 mmol/L [facility] Creatinine [Mass/Vol] 0.89 mg/dL 0.66 - 1.25 mg/dL [facility] GFR/1.73 sq M.predicted (S/P/Bld) [Vol rate/Area] 89.9 mL/min - PINF [facility] Comment on above: Calculation based on the Chronic Kidney Disease Epidemiology Collaboration (CKD-EPI) equation refit without adjustment for race Glucose [Mass/Vol] 148 mg/dL High 70 - 100 mg/dL [facility] Interpretation and review of laboratory results Abnormal [facility] Potassium [Moles/Vol] 4.9 mmol/L 3.5 - 5.1 mmol/L [facility] Sodium [Moles/Vol] 132 mmol/L Low 135 - 145 mmol/L [facility] Urea nitrogen [Mass/Vol] 21 mg/dL High 9 - 20 mg/dL [facility] Moderately Hemolyzed . Interpret K+, GLUC with caution. [facility] CBC (HEMOGRAM)on 07-06-2024 Erythrocyte distribution width (RBC) [Ratio] 14.0 % Normal 11.5-15.0 [facility] Comment on above: Performed By: #### L AB294 ####Occupancy Specialist: GATO GRAY ([phone])[facility] ([facility])[address] [place] [address] Hematocrit (Bld) [Volume fraction] 35.2 % Low 40.0-52.0 [facility] Comment on above: Performed By: #### L AB294 ####Occupancy Specialist: GATO [id number])[facility])[address] [place] [address] Hemoglobin (Bld) [Mass/Vol] 11.9 g/dL Low 13.0-18.0 [facility] Comment on above: Performed By: #### L AB294 ####Occupancy Specialist: GATO GRAY ([phone])[facility])[address] [place] [address] MCH (RBC) [Entitic mass] 29.8 pg Normal 26.0-34.0 [facility] Comment on above: Performed By: #### L AB294 ####Occupancy Specialist: GATO GRAY ([phone])[facility])[address] [place] [address] MCHC 33.8 % Normal 30.5-36.0 [facility] Comment on above: Performed By: #### L AB294 ####Occupancy Specialist: GATO GRAY ([phone])[facility])[address] [place] [address] MCV (RBC) [Entitic vol] 88.2 fL Normal 77.0-99.0 [facility] Comment on above: Performed By: #### L AB294 ####Occupancy Specialist: GATO GRAY ([phone])[facility])[address] [place] [address] Platelet mean volume (Bld) [Entitic vol] 10.2 fL Normal 9.0-12.7 [facility] Comment on above: Performed By: #### L AB294 ####Occupancy Specialist: GATO GRAY ([phone])[facility])[address] [place] [address] Platelets (Bld) [#/Vol] 239 10*3/uL Normal 140-440 [facility] Comment on above: Performed By: #### L AB294 ####Occupancy Specialist: GATO GRAY ([id number])[facility])[address] [place] [address] [place] RBC (Bld) [#/Vol] 3.99 10*6/uL Low 4.40-5.90 [facility] Comment on above: Performed By: #### L AB294 ####Occupancy Specialist: GATO GRAY ([phone])[facility] ([facility])[address] [place] [address] WBC (Bld) [#/Vol] 24.3 10*3/uL High 3.6-10.7 [facility] Comment on above: Performed By: #### L AB294 ####Occupancy Specialist: GATO GRAY ([phone])[facility] ([facility])[address] [place] [address] CBC panel Auto (Bld)on 07-06 Erythrocyte distribution width (RBC) [Ratio] 14 % 11.5 - 15.0 % [facility] Hematocrit (Bld) [Volume fraction] 35.2 % Low 40.0 - 52.0 % [facility] Hemoglobin (Bld) [Mass/Vol] 11.9 g/dL Low 13.0 - 18.0 g/dL [facility] Interpretation and review of laboratory results Abnormal [facility] MCH (RBC) [Entitic mass] 29.8 pg 26.0 - 34.0 pg [facility] MCHC (RBC) [Mass/Vol] 33.8 % 30.5 - 36.0 % [facility] MCV (RBC) [Entitic vol] 88.2 fL 77.0 - 99.0 fL [facility] Platelet mean volume (Bld) [Entitic vol] 10.2 fL 9.0 - 12.7 fL [facility] Platelets (Bld) [#/Vol] 239 10*3/uL 140 - 440 10*3/uL [facility] RBC (Bld) [#/Vol] 3.99 10*6/uL Low 4.40 - 5.90 10*6/uL [facility] WBC (Bld) [#/Vol] 24.3 10*3/uL High 3.6 - 10.7 10*3/uL [facility] Laboratory - Chemistry and C hemistry - challengeon 07-06-2024 Troponin I.cardiac [Mass/Vol] 0.078 ng/mL High NINF - 0.034 ng/mL [facility] NT PRO BNPon 07-06-2024 Natriuretic peptide B (Bld) [Mass/Vol] 423 pg/mL High <125 [facility] Comment on above: Performed By: #### L AB15, [id number], [id number] ####Occupancy Specialist: GATO GRAY ([phone])[facility])[address] [place] [address] [place] Natriuretic peptide B [Mass/ Vol]Ordered By: Avery Gonzalez on 07-06-2024 Interpretation and review of laboratory results Abnormal [facility] Natriuretic peptide B (Bld) [Mass/Vol] 423 pg/mL High NINF - 125 pg/mL [facility] Nursing Noteon 07-06-2024 Nursing Note APTT drawn at 2301 resulted at a subtherapeutic number. Per Dr. Stovall, redraw APTT at 0000 on 07/07 to double check before adjusting IV pump per algorithm. Normal [facility] Progress Noteon 07-06-2024 Progress Note I was notified by [facility] resident that the patient had arrived on T2 as a Direct Admit. I immediately came to T2 ICU to evaluate patient. I was at the bedside within 15 minutes of patient arrival. Please see H&P for further details. Normal [facility] TROPONIN, WITH SERIAL REFLEX on 07-06-2024 Troponin I.cardiac [Mass/Vol] 0.078 ng/mL High <0.034 [facility] Comment on above: Result Comment: ORDE R COMMENTS: Moderately Hemolyzed. Interpret Troponin with caution. Patients with high levels of Biotin oral intake (ie >5 mg/day) may have falsely decreased Troponin levels. Performed By: #### L AB15, [id number], [id number] ####Occupancy Specialist: GATO GRAY ([phone])[facility] [place] [address] [place] Troponin I.cardiac [Mass/Vol ]on 07-06-2024 Interpretation and review of laboratory results Abnormal [facility] Moderately Hemolyzed . Interpret Troponin with caution. Patients with high levels of Biotin oral intake (ie >5 mg/day) may have falsely decreased Troponin levels. [facility] aPTT Coag (Bld) [Time]on aPTT Coag (PPP) [Time] 26.5 s 20.0 - 30.5 s [facility] Interpretation and review of laboratory results Normal [facility] NOTE: The therapeuti c time for Heparin anticoagulation, based on Xa activity inhibition, is an APTT of 46-80 seconds. [facility] Office Visiton 07-03-2024 Follow-up visit [id number] Avery Vasquez 1950 M Date Provider Department Center 07/03/2024 [id number] HOOKER [facility] NROSURG None No family history on file Level of Service:54657 [place] OFFICE/OUTPATIENT ESTABLISHED LOW [facility] 20 MIN Reason for Visit and Comments: Follow-up [125863] - follow up CT Normal [facility] Progress Noteon 07-03-2024 Progress Note NEUROSURGERY and SPI NE FOLLOW-UP NOTE Patient Name: Avery Vasquez Patient : 1950 PCP: Aidan Argueta MD History of Present Illness: 74 y/o M who presents for follow up after being struck by a cow, found to have multifocal IPH/SAH and other injuries. He reports today that he is doing well. Mild headache but otherwise no complaint. No changes to strength, sensation or vision. His scalp laceration was suture by the OSH ED team and appears to be healing well. No swelling, drainage or erythema. Past Medical History: History reviewed. No pertinent past medical history. Past Surgical History: History reviewed. No pertinent surgical history. Home Medications: Prior to Admission medications Medication Sig Start Date End Date Taking? Authorizing Provider atorvastatin (Lipitor) 10 MG tablet Take 10 mg by mouth Nightly. Yes Historical Provider, bacitracin 500 UNIT/GM ointment Apply topically 3 times daily. 06/27/24 Yes Price Monae MD Calcium Carbonate-Vit D-Min (Calcium 600+D3 Plus Minerals) 600-800 MG-UNIT tablet Take 1 tablet by mouth daily. Yes Historical Provider, dapagliflozin (Farxiga) 10 MG tablet Take 10 mg by mouth daily. Yes Historical Provider, dulaglutide (Trulicity) 0.75 MG/0.5ML Inject 0.75 mg under the skin 1 (one) time per week. Yes Historical Provider, MD glimepiride (Amaryl) 1 MG tablet Take 1 mg by mouth daily (with breakfast). Yes Historical Provider, levETIRAcetam (Keppra) 500 MG tablet Take 1 tablet (500 mg) by mouth 2 times daily for 12 doses. 06/27/24 07/03/24 Yes Price Monae MD metFORMIN (Glucophage) 500 MG tablet Take 500 mg by mouth in the morning and 500 mg in the evening. Take with meals. Yes Historical Provider, Multiple Vitamins-Minerals (MULTIVITAMIN ADULT, MINERALS, PO) Take 1 tablet by mouth daily. Yes Historical Provider, tamsulosin (Flomax) 0.4 MG 24 hr capsule Take 0.4 mg by mouth Nightly. Yes Historical Provider, valsartan (Diovan) 160 MG tablet Take 160 mg by mouth 2 times daily. Yes Historical Provider, Lidocaine 4 % patch Place 1 patch on the skin daily. Patient not taking: Reported on 07/03/2024 06/28/24 07/28/24 Price Monae MD oxyCODONE (Roxicodone) 5 MG immediate release tablet Take 1 tablet (5 mg) by mouth in the morning and 1 tablet (5 mg) in the evening. Do all this for 3 days. 06/27/24 06/30/24 Price Monae MD aspirin 81 MG EC tablet Take 81 mg by mouth daily. 06/27/24 Historical Provider, Allergies: Bactrim [sulfamethoxazole-trimetho prim], Hydrocodone-acetaminophen, Lisinopril, and Tramadol Social History: TOBACCO: reports that he has never smoked. He has never used smokeless tobacco. ETOH: reports current alcohol use. RECREATIONAL DRUG USE: Social History Substance and Sexual Activity Drug Use Never Family History: No family history on file. Review of Systems: Review of Systems 12-point ROS completed and negative unless otherwise documented. Physical Examination: Vitals: 07/03/24 1023 BP: 136/88 Pulse: 79 Physical Exam Awake, alert, oriented x3 PERRL, TM, FS RUE (pain limited/full strength) LUE 5/5 BLE 5/5 SILT Right scalp laceration, stitches in place, healing well Results Labs: Last 24hrs No results found for this or any previous visit (from the past 24 hours). Radiology Personal review: No new imaging for review. We reviewed and discussed his most recent CT brain which was obtain inpatient and confirmed stability in his small IPH/SAH. 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 Neurologically he is doing well and remains at his neuro baseline. Plan to obtain CT brain at 2 weeks for further review, anticipate continued resolution/stability. Otherwise, he can follow up with our team on PRN basis. Godfrey Myers MD [facility] Neurosurgery I have spent 20 minutes reviewing previous notes, test results, and face to face with the patient discussing the diagnosis and importance of compliance with the treatment plan, as well as documenting on the day of the visit. [facility] 36on 07-02-2024 36 Spoke with patient, had his neck and head CT last week on 06/27. Scheduled a follow up for tomorrow 07/03 [facility] 36 Name of Caller: Sven blackburn Contact Reason for Appointment: Patient states that he received a text message on Tuesday or Tuesday offering a sooner appointment than 07/13/24 and he would like to know if it is still available. Please call and advise. Office Name: Neurosurgery [facility] [phone] 06-27-2024 [id number] Spoke with PCP's off ice. Dr. Argueta will not follow patient until he follows up at his office after this hospitalizaiton. Spoke with trauma team, Dr. Monae, who is agreeable to follow for home care orders until the patient can follow up with his PCP and they can then take over as following physician. Updated Nisa with PCP's office of trauma following until the patient is seen in office and then they will continue to follow for home care orders. She states she understands. [facility] [phone] [employer] following case for Discharge Needs. Normal [employer] [facility] [id number] 06-27-2024 [id number] Next Site of Care Admission Date: 06/26/2024 01:00 PM Patient Name: AVERY VASQUEZ Location: [address] A Date of : 1950 -- Placement Information -- Referral Type:Home Health Care Services - New Referral ID:[id number] Provider [facility] Address 2: City:[place] Selection Factors:Patient/Family Choice State:[place] Normal [facility] [phone] Care Managment Initi al Assessment Date: 06/27/2024 Patient Name: Avery Vasquez : 1950 Patient Information Source of Information: Patient Cognition/Language: WFL - Within Functional Limits Permission given to speak with patient 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 representative/caregiver as indicated: No Confirmation of Payer with patient/family: Yes Payer Name: Medicare [place]: No Confirmation of Primary Care Physician: Confirmed PCP Name: Aidan Argueta MD Seen in last 2 years?: Yes Primary Caregiver: Self If assistance needed, confirmed caregiver ready, willing and able to care for patient at discharge: Yes Confirmed with: Avery Living Arrangements Current Residence: House Number of Floors 2 Number of Entry Steps: 3 Bed/Bath Levels: Both second floor Facility: Facility Name: Plan to Return: Lives with: Spouse/significant other Support Systems: Spouse/significant other Activities of Daily Living Ambulation: Independent Bathing/Dressing: Independent Elimination/Continence/Xavier leting: Independent Feeding: Independent Who Assists with Activities of Daily Living: Instrumental Activities of Daily Living Prescription Coverage: Yes Pharmacy Used: [facility] in [place] Medication Management: Independent Transportation/Shopping: Independent Transportation Mode: Car Needs Assistance with Transportation at Discharge: No Meal Preparation: Independent Laundry/Cleaning: Independent Finances/Bill Paying: Independent Communication: Independent Types of Care Services/Equipment Utilized Care Services: Dialysis Type: Durable Medical Equipment: Patient's Goal/Discharge Plan Patient expects to be discharged to: home Discharge Planning Actions: Continue to follow Patient's Choice Rights and [employer] and Collaborative Relationships Disclosed as Indicated for Post-Acute Care: Interdisciplinary Team Engagement: Geriatric Assessment, PT/OT Social Work Referral for: Additional Information: Pt admitted s/p cow attack with SAH and right clavicle FX. Introduced myself and role. Pt lives with and is independent. can provide assistance and sister will provide transportation. PT is recommending home with home PT, HCL notified. Normal [facility] BASIC METABOLIC PANELon 10-2 Anion gap [Moles/Vol] 8 mmol/L Normal 3-13 [facility] Comment on above: Performed By: #### L AB15 ####Occupancy Specialist: GATO GRAY ([phone])[facility] ([facility])[address] [place] [address] Calcium [Mass/Vol] 9.7 mg/dL Normal 8.4-10.4 [facility] Comment on above: Performed By: #### L AB15 ####Occupancy Specialist: GATO GRAY ([phone])[facility] ([facility])[address] [place] [address] Chloride [Moles/Vol] 108 mmol/L High 98-107 [facility] Comment on above: Performed By: #### L AB15 ####Occupancy Specialist: GATO GRAY ([phone])[facility] ([facility])[address] [place] [address] CO2 [Moles/Vol] 19 mmol/L Low 22-30 [facility] Comment on above: Performed By: #### L AB15 ####Occupancy Specialist: GATO GRAY ([phone])[facility] ([facility])[address] [place] [address] Creatinine [Mass/Vol] 0.90 mg/dL Normal 0.66-1.25 [facility] Comment on above: Performed By: #### L AB15 ####Occupancy Specialist: GATO GRAY ([phone])[facility])[address] [place] [address] GLOMERULAR FILTRATION RATE ML/MIN/1.73 SQ M.PREDICTED 89.6 mL/min/1.73m*2 Normal >60.0 [facility] Comment on above: Result Comment: Calc ulation based on the Chronic Kidney Disease Epidemiology Collaboration (CKD-EPI) equation refit without adjustment for race Performed By: #### L AB15 ####Occupancy Specialist: GATO GRAY ([phone])[facility] ([facility])[address] [place] [address] Glucose [Mass/Vol] 114 mg/dL High 70-100 [facility] Comment on above: Performed By: #### L AB15 ####Occupancy Specialist: GATO GRAY ([phone])[facility])[address] [place] [address] [place] Potassium [Moles/Vol] 4.2 mmol/L Normal 3.5-5.1 [facility] Comment on above: Performed By: #### L [id number] ####Occupancy Specialist: GATO GRAY ([phone])[facility])[address] [place] [address] Sodium [Moles/Vol] 136 mmol/L Normal 135-145 [facility] Comment on above: Performed By: #### L [id number] ####Occupancy Specialist: GATO GRAY ([phone])[facility] ([facility])[address] [place] [address] Urea nitrogen [Mass/Vol] 22 mg/dL High 9-20 [facility] Comment on above: Performed By: #### L [id number] ####Occupancy Specialist: GATO GRAY ([phone])[facility] ([facility])[address] [place] [address] Basic metabolic 1998 panelon 06-27-2024 Anion gap [Moles/Vol] 8 mmol/L 3 - 13 mmol/L [facility] Calcium [Mass/Vol] 9.7 mg/dL 8.4 - 10. 4 mg/dL [facility] Chloride [Moles/Vol] 108 mmol/L High 98 - 10 7 mmol/L [facility] CO2 [Moles/Vol] 19 mmol/L Low 22 - 30 mmol/L [facility] Creatinine [Mass/Vol] 0.9 mg/dL 0.66 - 1.25 mg/dL [facility] GFR/1.73 sq M.predicted (S/P/Bld) [Vol rate/Area] 89.6 mL/min - PINF [facility] Comment on above: Calculation based on the Chronic Kidney Disease Epidemiology Collaboration (CKD-EPI) equation refit without adjustment for race Glucose [Mass/Vol] 114 mg/dL High 70 - 100 mg/dL [facility] Interpretation and review of laboratory results Abnormal [facility] Potassium [Moles/Vol] 4.2 mmol/L 3.5 - 5.1 mmol/L [facility] Sodium [Moles/Vol] 136 mmol/L 135 - 145 mmol/L [facility] Urea nitrogen [Mass/Vol] 22 mg/dL High 9 - 20 mg/dL [facility] CBC W Auto Differential pane l (Bld)on 06-27-2024 Basophils (Bld) [#/Vol] 0 10*3/uL 0.0 - 0.2 10*3/uL [facility] Basophils/100 WBC (Bld) 0.2 % 0.0 - 2.0 % [facility] Eosinophils (Bld) [#/Vol] 0 10*3/uL 0.0 - 0.5 10*3/uL [facility] Eosinophils/100 WBC (Bld) 0.3 % 0.0 - 6.0 % [facility] Erythrocyte distribution width (RBC) [Ratio] 14.6 % 11.5 - 15.0 % [facility] Hematocrit (Bld) [Volume fraction] 34.8 % Low 40.0 - 52.0 % [facility] Hemoglobin (Bld) [Mass/Vol] 11.5 g/dL Low 13.0 - 18.0 g/dL [facility] Immature granulocytes (Bld) [#/Vol] 0 10*3/uL NINF - 0.1 10*3/uL [facility] Immature granulocytes/100 WBC (Bld) 0.3 % 0.0 - 2.0 % [facility] Interpretation and review of laboratory results Abnormal [facility] Lymphocytes (Bld) [#/Vol] 1.5 10*3/uL 1.0 - 4.3 10*3/uL [facility] Lymphocytes/100 WBC (Bld) 14.2 % Low 15.0 - 45.0 % [facility] MCH (RBC) [Entitic mass] 29.5 pg 26.0 - 34.0 pg [facility] MCHC (RBC) [Mass/Vol] 33 % 30.5 - 36.0 % [facility] MCV (RBC) [Entitic vol] 89.2 fL 77.0 - 99.0 fL [facility] Monocytes (Bld) [#/Vol] 1.2 10*3/uL High 0.0 - 0.9 10*3/uL [facility] Monocytes/100 WBC (Bld) 11 % 5.0 - 13.0 % [facility] Neutrophils (Bld) [#/Vol] 7.7 10*3/uL High 1.8 - 7.5 10*3/uL [facility] Neutrophils/100 WBC (Bld) 74 % 38.0 - 82.0 % [facility] Nucleated RBC/100 WBC (Bld) [Ratio] 0 % [facility] Platelet mean volume (Bld) [Entitic vol] 9.7 fL 9.0 - 12.7 fL [facility] Platelets (Bld) [#/Vol] 229 10*3/uL 140 - 440 10*3/uL [facility] RBC (Bld) [#/Vol] 3.9 10*6/uL Low 4.40 - 5.90 10*6/uL [facility] WBC (Bld) [#/Vol] 10.4 10*3/uL 3.6 - 10.7 10*3/uL [facility] CBC WITH AUTO DIFFERENTIALon 06-27-2024 Basophils (Bld) [#/Vol] 0.0 10*3/uL Normal 0.0-0.2 [facility] Comment on above: Performed By: #### L [id number] ####Occupancy Specialist: GATO GRAY ([phone])[facility])[address] [place] [address] Basophils/100 WBC (Bld) 0.2 % Normal 0.0-2.0 S [facility] Comment on above: Performed By: #### L [id number] ####Occupancy Specialist: GATO GRAY ([phone])[facility])[address] [place] [address] Eosinophils (Bld) [#/Vol] 0.0 10*3/uL Normal 0.0-0.5 [facility] Comment on above: Performed By: #### L [id number] ####Occupancy Specialist: GATO GRAY ([phone])[facility])[address] [place] [address] Eosinophils/100 WBC (Bld) 0.3 % Normal 0.0-6.0 [facility] Comment on above: Performed By: #### L [id number] ####Occupancy Specialist: GATO GRAY ([phone])[facility])[address] [place] [address] Erythrocyte distribution width (RBC) [Ratio] 14.6 % Normal 11.5-15.0 [facility] Comment on above: Performed By: #### L [id number] ####Occupancy Specialist: GATO GRAY ([phone])[address] Hematocrit (Bld) [Volume fraction] 34.8 % Low 40.0-52.0 [facility] Comment on above: Performed By: #### L [id number] ####Occupancy Specialist: GATO GRAY ([phone])[facility])[address] [place] [address] Hemoglobin (Bld) [Mass/Vol] 11.5 g/dL Low 13.0-18.0 [facility] Comment on above: Performed By: #### L [id number] ####Occupancy Specialist: GATO GRAY ([phone])[address] IMMATURE GRANS % 0.3 % Normal 0.0-2.0 [facility] Comment on above: Performed By: #### L [id number] ####Occupancy Specialist: GATO GRAY ([phone])[address] IMMATURE GRANS ABSOLUTE 0.0 10*3/uL Normal <0.1 [facility] Comment on above: Performed By: #### L [id number] ####Occupancy Specialist: GATO GRAY ([phone])[facility])[address] [place] [address] Lymphocytes (Bld) [#/Vol] 1.5 10*3/uL Normal 1.0-4.3 [facility] Comment on above: Performed By: #### L [id number] ####Occupancy Specialist: GATO GRAY ([phone])[address] Lymphocytes/100 WBC (Bld) 14.2 % Low 15.0-45.0 [facility] Comment on above: Performed By: #### L [id number] ####Occupancy Specialist: GATO GRAY ([phone])[facility])[address] [place] [address] MCH (RBC) [Entitic mass] 29.5 pg Normal 26.0-34.0 [facility] Comment on above: Performed By: #### L [id number] ####Occupancy Specialist: GATO GRAY ([phone])[facility])[address] [place] [address] MCHC 33.0 % Normal 30.5-36.0 [facility] Comment on above: Performed By: #### L [id number] ####Occupancy Specialist: GATO GRAY ([phone])[facility])[address] [place] [address] MCV (RBC) [Entitic vol] 89.2 fL Normal 77.0-99.0 S [facility] Comment on above: Performed By: #### L [id number] ####Occupancy Specialist: GATO GRAY ([phone])[facility])[address] [place] [address] Monocytes (Bld) [#/Vol] 1.2 10*3/uL High 0.0-0.9 [facility] Comment on above: Performed By: #### L [id number] ####Occupancy Specialist: GATO GRAY ([phone])[facility])[address] [place] [address] Monocytes/100 WBC (Bld) 11.0 % Normal 5.0-13.0 [facility] Comment on above: Performed By: #### L [id number] ####Occupancy Specialist: GATO GRAY ([phone])[facility])[address] [place] [address] NEUTROPHILS ABSOLUTE 7.7 10*3/uL High 1.8-7.5 [facility] Comment on above: Performed By: #### L [id number] ####Occupancy Specialist: GATO GRAY ([phone])[facility])[address] [place] [address] Neutrophils/100 WBC (Bld) 74.0 % Normal 38.0-82.0 [facility] Comment on above: Performed By: #### L [id number] ####Occupancy Specialist: GATO GRAY ([phone])[facility])[address] [place] [address] NRBC 0.0 /100 WBCs Normal 0.0-2.0 [facility] Comment on above: Performed By: #### L [id number] ####Occupancy Specialist: GATO GRAY ([phone])[facility])[address] [place] [address] Platelet mean volume (Bld) [Entitic vol] 9.7 fL Normal 9.0-12.7 [facility] Comment on above: Performed By: #### L [id number] ####Occupancy Specialist: GATO GRAY ([phone])[facility] ([facility])[address] [place] [address] Platelets (Bld) [#/Vol] 229 10*3/uL Normal 140-440 [facility] Comment on above: Performed By: #### L [id number] ####Occupancy Specialist: GATO GRAY ([phone])[facility])[address] [place] [address] RBC (Bld) [#/Vol] 3.90 10*6/uL Low 4.40-5.90 [facility] Comment on above: Performed By: #### L [id number] ####Occupancy Specialist: GATO GRAY ([phone])[facility])[address] [place] [address] WBC (Bld) [#/Vol] 10.4 10*3/uL Normal 3.6-10.7 [facility] Comment on above: Performed By: #### L [id number] ####Occupancy Specialist: GATO GRAY ([phone])[facility])[address] [place] [address] CT HEAD NECK ANGIO W AND WO IV CONTRASTon 06-27-2024 CT HEAD NECK ANGIO W AND WO IV CONTRAST Patient Name: AVERY VASQUEZ : 1950 [facility]#: [id number] Exam Date/Time: 06/27/2024 05:22 Procedure: CT HEAD NECK ANGIO W AND WO IV CONTRAST Ordering Provider: MARIN ALEKSANDAR Reason For Exam: s/p cow attack, R rib 2-[address] HEAD, CT ANGIOGRAPHY INTRACRANIAL AND EXTRACRANIAL ARTERIAL CIRCULATION: CLINICAL INDICATION: Trauma, intracranial hemorrhage TECHNIQUE: Transaxial CT sequence performed through the head with 3 mm reconstruction. Sagittal and Coronal reconstruction images included. Next, a transaxial sequence through the skull head and neck during dynamic intravenous infusion of 75 mL of nonionic contrast media, injected at a high flow rate following a photoengraving retoucher study. Multiplanar and 3D MIP reconstruction was performed concurrently on an independent viewing workstation. Measurement of carotid stenosis is a ratio based on conventional angiographic data from the NASCET trials with the smallest caliber of the internal carotid as the numerator and normal post-stenotic internal carotid caliber as denominator. Dose reduction was employed with automated exposure control. COMPARISON: 06/26/2024 FINDINGS: CT HEAD: Ventricles and Extra-axial spaces: The ventricles are unchanged in size from the prior study. No intraventricular hemorrhage. No extra-axial hematoma. Redemonstration of right frontal subarachnoid hemorrhage and subarachnoid hemorrhage in the right sylvian fissure, not significantly changed. Cerebral and cerebellar parenchyma: Redemonstration of a hemorrhagic contusion in the right frontal lobe. No new parenchymal hemorrhage. No midline shift. White matter hypodensity is related to microangiopathic disease. Lung Apices: Clear Neck: No cystic or solid neck mass. No lymphadenopathy. The thyroid, bilateral parotid and bilateral submandibular glands are unremarkable. Osseous structures: No depressed skull fracture. There is a right scalp hematoma. Degenerative changes are present in the visualized spine. Partly visualized right clavicle fracture. Aortic arch: The aortic arch demonstrates normal caliber. A normal branching pattern of the great vessels is noted without stenosis at the origins. Atherosclerotic calcifications are present in the aortic arch. Right carotid: The right carotid artery demonstrates normal caliber common and external branch. Atherosclerotic calcifications are present in the internal carotid artery, resulting in approximately 53 % ICA stenosis. Patent flow extends into the intracranial circulation. No carotid artery dissection. Left carotid: The left carotid artery demonstrates normal caliber common and external branch. Atherosclerotic calcifications are present in the internal carotid artery, resulting in approximately 55 % ICA stenosis. Patent flow extends into the intracranial circulation. No carotid artery dissection. Extracranial vertebral arteries: Patent bilaterally. 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 The left vertebral artery terminates in small branches of the skull base. No vertebral artery dissection. Distal internal carotid arteries: Patent with atherosclerotic calcifications Anterior cerebral arteries: Normal Middle cerebral arteries: Normal Distal vertebral arteries: Normal Basilar artery: Normal Posterior cerebral arteries: There is a origin of the right ANIMAL FEEDER Anterior communicating artery: Normal Posterior communicating arteries: Normal Aneurysm or vascular malformation: None identified. IMPRESSION: 1. No carotid artery or vertebral artery dissection. No large vessel intracranial arterial occlusion. 2. Atherosclerotic disease with approximately 55% proximal left ICA stenosis and 53% proximal right ICA stenosis. 3. No patent vertebral arteries. 4. Redemonstration of parenchymal and subarachnoid hemorrhage, similar to the prior study. Scalp hematoma. 5. 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 6. Right clavicle fracture. Report Dictated on Electronically Signed By: Jerry Sweet MD Electronically Signed Date/Time: 06/27/2024 9:13 AM EDT S/p cow attach, r rib 2-3 fx Normal [facility] CTA Head vessels and Neck ve ssels WO and W contrast Eleuterio 06-27-2024 1. No carotid artery or vertebral artery dissection. No large vessel intracranial arterial occlusion. 2. Atherosclerotic disease with approximately 55% proximal left ICA stenosis and 53% proximal right ICA stenosis. 3. No patent vertebral arteries. 4. Redemonstration of parenchymal and subarachnoid hemorrhage, similar to the prior study. Scalp hematoma. 5. 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 6. Right clavicle fracture. Report Dictated on Electronically Signed By: Jerry Sweet MD Electronically Signed Date/Time: 06/27/2024 9:13 AM EDT [facility] Patient Name: AVERY VASQUEZ : 1950 Exam Date/Time: 06/27/2024 05:22 Procedure: CT HEAD NECK ANGIO W AND WO IV CONTRAST Ordering Provider: MARIN ALEKSANDAR Reason For Exam: s/p cow attack, R rib 2-[address] HEAD, CT ANGIOGRAPHY INTRACRANIAL AND EXTRACRANIAL ARTERIAL CIRCULATION: CLINICAL INDICATION: Trauma, intracranial hemorrhage TECHNIQUE: Transaxial CT sequence performed through the head with 3 mm reconstruction. Sagittal and Coronal reconstruction images included. Next, a transaxial sequence through the skull head and neck during dynamic intravenous infusion of 75 mL of nonionic contrast media, injected at a high flow rate following a photoengraving retoucher study. Multiplanar and 3D MIP reconstruction was performed concurrently on an independent viewing workstation. Measurement of carotid stenosis is a ratio based on conventional angiographic data from the NASCET trials with the smallest caliber of the internal carotid as the numerator and normal post-stenotic internal carotid caliber as denominator. Dose reduction was employed with automated exposure control. COMPARISON: 06/26/2024 FINDINGS: CT HEAD: Ventricles and Extra-axial spaces: The ventricles are unchanged in size from the prior study. No intraventricular hemorrhage. No extra-axial hematoma. Redemonstration of right frontal subarachnoid hemorrhage and subarachnoid hemorrhage in the right sylvian fissure, not significantly changed. Cerebral and cerebellar parenchyma: Redemonstration of a hemorrhagic contusion in the right frontal lobe. No new parenchymal hemorrhage. No midline shift. White matter hypodensity is related to microangiopathic disease. Lung Apices: Clear Neck: No cystic or solid neck mass. No lymphadenopathy. The thyroid, bilateral parotid and bilateral submandibular glands are unremarkable. Osseous structures: No depressed skull fracture. There is a right scalp hematoma. Degenerative changes are present in the visualized spine. Partly visualized right clavicle fracture. Aortic arch: The aortic arch demonstrates normal caliber. A normal branching pattern of the great vessels is noted without stenosis at the origins. Atherosclerotic calcifications are present in the aortic arch. Right carotid: The right carotid artery demonstrates normal caliber common and external branch. Atherosclerotic calcifications are present in the internal carotid artery, resulting in approximately 53 % ICA stenosis. Patent flow extends into the intracranial circulation. No carotid artery dissection. Left carotid: The left carotid artery demonstrates normal caliber common and external branch. Atherosclerotic calcifications are present in the internal carotid artery, resulting in approximately 55 % ICA stenosis. Patent flow extends into the intracranial circulation. No carotid artery dissection. Extracranial vertebral arteries: Patent bilaterally. 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 The left vertebral artery terminates in small branches of the skull base. No vertebral artery dissection. Distal internal carotid arteries: Patent with atherosclerotic calcifications Anterior cerebral arteries: Normal Middle cerebral arteries: Normal Distal vertebral arteries: Normal Basilar artery: Normal Posterior cerebral arteries: There is a origin of the right ANIMAL FEEDER Anterior communicating artery: Normal Posterior communicating arteries: Normal Aneurysm or vascular malformation: None identified. [facility] Jerry Sweet MD - 06/27/2024 Patient Name: AVERY VASQUEZ : 1950 Exam Date/Time: 06/27/2024 05:22 Procedure: CT HEAD NECK ANGIO W AND WO IV CONTRAST Ordering Provider: MARIN ALEKSANDAR Reason For Exam: s/p cow attack, R rib 2-[address] HEAD, CT ANGIOGRAPHY INTRACRANIAL AND EXTRACRANIAL ARTERIAL CIRCULATION: CLINICAL INDICATION: Trauma, intracranial hemorrhage TECHNIQUE: Transaxial CT sequence performed through the head with 3 mm reconstruction. Sagittal and Coronal reconstruction images included. Next, a transaxial sequence through the skull head and neck during dynamic intravenous infusion of 75 mL of nonionic contrast media, injected at a high flow rate following a photoengraving retoucher study. Multiplanar and 3D MIP reconstruction was performed concurrently on an independent viewing workstation. Measurement of carotid stenosis is a ratio based on conventional angiographic data from the NASCET trials with the smallest caliber of the internal carotid as the numerator and normal post-stenotic internal carotid caliber as denominator. Dose reduction was employed with automated exposure control. COMPARISON: 06/26/2024 FINDINGS: CT HEAD: Ventricles and Extra-axial spaces: The ventricles are unchanged in size from the prior study. No intraventricular hemorrhage. No extra-axial hematoma. Redemonstration of right frontal subarachnoid hemorrhage and subarachnoid hemorrhage in the right sylvian fissure, not significantly changed. Cerebral and cerebellar parenchyma: Redemonstration of a hemorrhagic contusion in the right frontal lobe. No new parenchymal hemorrhage. No midline shift. White matter hypodensity is related to microangiopathic disease. Lung Apices: Clear Neck: No cystic or solid neck mass. No lymphadenopathy. The thyroid, bilateral parotid and bilateral submandibular glands are unremarkable. Osseous structures: No depressed skull fracture. There is a right scalp hematoma. Degenerative changes are present in the visualized spine. Partly visualized right clavicle fracture. Aortic arch: The aortic arch demonstrates normal caliber. A normal branching pattern of the great vessels is noted without stenosis at the origins. Atherosclerotic calcifications are present in the aortic arch. Right carotid: The right carotid artery demonstrates normal caliber common and external branch. Atherosclerotic calcifications are present in the internal carotid artery, resulting in approximately 53 % ICA stenosis. Patent flow extends into the intracranial circulation. No carotid artery dissection. Left carotid: The left carotid artery demonstrates normal caliber common and external branch. Atherosclerotic calcifications are present in the internal carotid artery, resulting in approximately 55 % ICA stenosis. Patent flow extends into the intracranial circulation. No carotid artery dissection. Extracranial vertebral arteries: Patent bilaterally. 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 The left vertebral artery terminates in small branches of the skull base. No vertebral artery dissection. Distal internal carotid arteries: Patent with atherosclerotic calcifications Anterior cerebral arteries: Normal Middle cerebral arteries: Normal Distal vertebral arteries: Normal Basilar artery: Normal Posterior cerebral arteries: There is a origin of the right ANIMAL FEEDER Anterior communicating artery: Normal Posterior communicating arteries: Normal Aneurysm or vascular malformation: None identified. IMPRESSION: 1. No carotid artery or vertebral artery dissection. No large vessel intracranial arterial occlusion. 2. Atherosclerotic disease with approximately 55% proximal left ICA stenosis and 53% proximal right ICA stenosis. 3. No patent vertebral arteries. 4. Redemonstration of parenchymal and subarachnoid hemorrhage, similar to the prior study. Scalp hematoma. 5. 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 6. Right clavicle fracture. Report Dictated on Electronically Signed By: Jerry Sweet MD Electronically Signed Date/Time: 06/27/2024 9:13 AM EDT [facility] Radiology Study observation (narrative) [facility] CTA Head vessels and Neck ve ssels WO and W contrast IVOrdered By: Jerry Sweet on 06-27-2024 [employer] Work Phone: Consulton 06-27-2024 Consult PAGING: The Acute Pa in Service providers are available exclusively via [employer]. APS does not utilize pagers. 06/27/2024 BLOCK COMMUNICATION NOTE Patient/MRN Avery Vasquez [id number] Room T205 Block requested Rib Block: right anterior second and third rib fractures. Platelets Lab Results Component Value Date PLT 229 06/27/2024 PLT 276 06/26/2024 Block will not produce analgesia due to location of rib fractures. APS will sign off, thank you NG: The Acute Pain Service providers are available exclusively via [employer]. APS does not utilize pagers. Normal [facility] Consult ------ -- Attestation signed by Godfrey Myers MD at 06/27/2024 10:15 AM I agree with the history, physical exam and assessment as documented below by Shaggy Saucedo PA-C. Briefly, 74 y/o M who presents after being struck by a cow, found to have multifocal IPH/SAH and other injuries. On my exam, patient awake, alert and oriented. PERRL. FS. Full/symmetrical throughout (RUE limited by pain/sling). SILT. Repeated CT brain reviewed. Overall appears grossly stable compared to prior. No obvious vascular abnormality on CTA. I recommend Keppra 500mg BID x7days for seizure ppx. Please have patient follow up with my team in clinic in 2 weeks of discharge with another CT brain. Hold ASA until that time. Neurosurgery to sign-off, please call with questions. Godfrey Myers MD [facility] Neurosurgery I spent 60 minutes of my time independently reviewing labs, imaging, examining the patient and discussing his care with family members or other providers. -- NEUROSURGERY CONSULT NOTE Patient Name: Avery Vasquez Patient : 1950 PCP: Aidan Argueta MD Chief Complaint: struck by a cow History of Present Illness: 74 y.o. presents from an outside hospital after being struck by a cow. 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 He lost consciousness. He takes a baby aspirin at home. His current complaints include some mild headache and right clavicle pain. He states he wants to be discharged soon so he can take care of his who has Alzheimer's. Past Medical History: No past medical history on file. Past Surgical History: No past surgical history on file. Home Medications: Prior to Admission medications Medication Sig Start Date End Date Taking? Authorizing Provider aspirin 81 MG EC tablet Take 81 mg by mouth daily. Historical Provider, atorvastatin (Lipitor) 10 MG tablet Take 10 mg by mouth Nightly. Historical Provider, Calcium Carbonate-Vit D-Min (Calcium 600+D3 Plus Minerals) 600-800 MG-UNIT tablet Take 1 tablet by mouth daily. Historical Provider, dapagliflozin (Farxiga) 10 MG tablet Take 10 mg by mouth daily. Historical Provider, dulaglutide (Trulicity) 0.75 MG/0.5ML Inject 0.75 mg under the skin 1 (one) time per week. Historical Provider, glimepiride (Amaryl) 1 MG tablet Take 1 mg by mouth daily (with breakfast). Historical Provider, metFORMIN (Glucophage) 500 MG tablet Take 500 mg by mouth in the morning and 500 mg in the evening. Take with meals. Historical Provider, Multiple Vitamins-Minerals (MULTIVITAMIN ADULT, MINERALS, PO) Take 1 tablet by mouth daily. Historical Provider, tamsulosin (Flomax) 0.4 MG 24 hr capsule Take 0.4 mg by mouth Nightly. Historical Provider, valsartan (Diovan) 160 MG tablet Take 160 mg by mouth 2 times daily. Historical Provider, Allergies: Bactrim [sulfamethoxazole-trimetho prim], Hydrocodone-acetaminophen, Lisinopril, and Tramadol Social History: TOBACCO: has no history on file for tobacco use. ETOH: has no history on file for alcohol use. RECREATIONAL DRUG USE: Social History Substance and Sexual Activity Drug Use Not on file Family History: No family history on file. Review of Systems: Review of Systems Positive for headache and right shoulder/clavicle pain Physical Examination: Vitals: 06/27/24 0900 BP: 114/84 Pulse: 69 Resp: (!) 11 Temp: SpO2: 100% Physical Exam Neurological Exam Awake, alert and oriented x3 5/5 BUE 5/5 BLE Sensation intact to light touch Pupils equal Speech normal Results Labs: Last 24hrs Recent Results (from the past 24 hours) CBC auto differential Collection Time: 06/26/24 3:36 PM Result Value Ref Range Auto WBC 15.8 (H) 3.6 - 10.7 10*3/uL RBC 4.50 4.40 - 5.90 10*6/uL Hemoglobin 13.1 13.0 - 18.0 g/dL Hematocrit 40.2 40.0 - 52.0 % MCV 89.3 77.0 - 99.0 fL MCH 29.1 26.0 - 34.0 pg MCHC 32.6 30.5 - 36.0 % RDW 14.3 11.5 - 15.0 % Platelets 276 140 - 440 10*3/uL MPV 9.7 9.0 - 12.7 fL nRBC 0.0 0.0 - 2.0 /100 WBCs Neutrophils Relative 90.1 (H) 38.0 - 82.0 % Lymphocytes Relative 4.7 (L) 15.0 - 45.0 % Monocytes Relative 4.7 (L) 5.0 - 13.0 % Eosinophils Relative 0.0 0.0 - 6.0 % Basophils Relative 0.2 0.0 - 2.0 % Immature Grans % 0.3 0.0 - 2.0 % Neutrophils Absolute 14.2 (H) 1.8 - 7.5 10*3/uL Lymphocytes Absolute 0.8 (L) 1.0 - 4.3 10*3/uL Monocytes Absolute 0.7 0.0 - 0.9 10*3/uL Eosinophils Absolute 0.0 0.0 - 0.5 10*3/uL Basophils Absolute 0.0 0.0 - 0.2 10*3/uL Immature Grans Absolute 0.1 (H) <0.1 10*3/uL Basic metabolic panel Collection Time: 10/22/24 3:36 PM Result Value Ref Range SODIUM 136 135 - 145 mmol/L POTASSIUM 4.9 3.5 - 5.1 mmol/L CHLORIDE 109 (H) 98 - 107 mmol/L (more content not included)... Normal [facility] Laboratory - Chemistry and C hemistry - challengeon 06-27-2024 Glucose [Mass/Vol] 163 mg/dL High 70 - 100 mg/dL [facility] Glucose [Mass/Vol] 164 mg/dL High 70 - 100 mg/dL [facility] No Panel Informationon 06-27 Interpretation and review of laboratory results Abnormal [facility] Performed by: [facility], [address] [place] [id number] CLIA ID: [id number] [facility] Interpretation and review of laboratory results Abnormal [facility] Performed by: [facility], [address] [place] [id number] CLIA ID: [id number] [facility] Nursing Noteon 06-27-2024 Nursing Note Discharge instructio ns provided to patient and family. Patient to follow up with PCP, Neuro, and Ortho as scheduled. Prescriptions called to patient preferred pharmacy by provider. Scripts discussed with patient and family, neither voiced questions. Denies concerns at time of discharge. Ambulatory with assistance, wheeled to exit and assisted in to vehicle. Left in stable condition with all belongings and discharge paperwork. Normal [facility] Progress Noteon 06-27-2024 Progress Note Patient documented t o be obese with a BMI of 36.65, as well as comorbid conditions of HTN and DM. Can this be further specified as: - Class 3 obesity - Other obesity - Other - please specify Use of terms such as suspected, likely, concern for, or probable (associated with a specific diagnosis that is being evaluated, monitored, or treated as if it exists) are acceptable and can be coded in the inpatient setting, when documented at the time of discharge. Please use your independent medical judgment in providing your response.PLEASE DOCUMENT ANY ADDITIONAL DIAGNOSES AND/OR SPECIFICITY AN ADDENDUM TO THE DISCHARGE SUMMARY USING THE JUMP TO BUTTON TO ENTER THE CHART. IF YOU HAVE ANY QUESTIONS PLEASE CALL [phone] AND LEAVE A MESSAGE. THE [facility] STAFF IS CURRENTLY WORKING REMOTELY BUT CHECKING VOICEMAIL REGULARLY AND WILL RETURN YOUR CALL SOON POSSIBLE. THANK YOU! Class 3 obesity Normal [facility] Progress Note Nutrition Assessment Type and Reason for Visit: Initial Nutrition Recommendations/Plan: Continue with Regular diet. Sign off to photocopier technician. Malnutrition Assessment: Malnutrition Status: No malnutrition Context: Acute Illness Nutrition Assessment: Pt is a 74-year-old male with PMH significant for DM, HTN, dyslipidemia who presents s/p bovine assault. 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 He sustained a Right SAH and Right nondisplaced clavicle fx. Posterior head lac - repaired at OSH with nylon suture, remove in 10-14 days. He is on a regular diet. RD visited pt; he endorsed good p.o intake HOOKER LASTER, monitors CHO at home. Estimated Daily Nutrient Needs: Energy Requirements Based On: Kcal/kg Weight Used for Energy Requirements: [place] Weight for Energy Calculation (kg): 70 kg Total Energy Requirements (kcals/day): 25-30 kcals/kg = 3029-7036 kcals/day Weight Used for Protein Requirements: [place] Weight in Kg Used for Protein Requirements: 70 kg Estimated Total Protein (g/day): 1.2-1.4g protein/kg IBW = 84-98g protein/day Estimated Daily Total Fluid (ml/day): 1750 mls Nutrition Related Findings: Hypoactive Bs, abd soft, rounded NT. Last BM 06/26/24. Wound Type: Surgical Incision (head lac - saturated) Net IO Since Admission: 651.16 mL [06/27/24 1332] Current Nutrition Therapies: Adult diet Regular Current Oral Intake Average Meal Intake: 76-100% Average Supplements Intake: None Ordered Anthropometric Measures: Height: 172.7 cm (5' 7.99) Current Body Weight: 105 kg (231 lb 7.7 oz) (06/27/24) Weight Source: Bed Scale [place] Body Weight (lbs) (Calculated): 154 lbs [place] Body Weight (Kg) (Calculated): 70 kg % [place] Body Weight (Calculated): 150.3 % BMI (kg/m2) (Calculated): 35.2 BMI Categories: Obese Class 2 (BMI 35.0 -39.9) Wt Readings from Last 10 Encounters: 06/27/24 105 kg (231 lb 4.2 oz) LABS: Recent Labs 06/26/24 1536 06/27/24 0036 NA 136 136 K 4.9 4.2 CL 109* 108* CO2 19* 19* BUN 21* 22* CREATININE 0.77 0.90 GLUCOSE 148* 114* CALCIUM 10.6* 9.7 Nutrition Diagnosis: No nutrition diagnosis at this time related to as evidenced by Discharge Planning: Too soon to determine Roxanne Rees RD,LD[facility] Contact: *[phone] or Brit Mooney [facility] Progress Note ------ -- Attestation signed by Dale Biswas MD at 07/26/2024 10:20 AM ATTENDING ADDENDUM Active Diagnoses/Problems this Admission: Patient Active Problem List Diagnosis Intracranial bleeding (HCC) Closed fracture of multiple ribs of right side with routine healing Traumatic closed fracture of distal clavicle with minimal displacement, right, initial encounter Acute pulmonary embolism without acute cor pulmonale, unspecified pulmonary embolism type (HCC) I independently saw the above patient and reviewed the imaging, labs, vital signs; I performed a physical exam and ROS. My findings agree with the above note except for any details corrected below. Chief Complaint: -Wants to be discharged Injuries/problem list: -R SAH -R clavicle fx -R 2nd & 3rd rib fx -Acute pain -Hyperlipidemia -Diabetes -Urinary retention -Acute pain Surgeries: -None Management/Plan: Neuro: R SAH -Repeat CT head without evidence of worsening SAH -CTA obtained -Change to q4 neuro checks -Appreciate NSG consultation -Keppra Acute pain -PRN tylenol and oxycodone Cardiac: Hx of HPL -Home atorvastatin Hx of HTN -Home losartan/valsartan -Remains HDS Pulm: R 2-3rd rib fx -Stable on RA -Pulmonary toilet -Duonebs ordered FEN/GI: -Regular diet -HLIV today Constipation -Bowel regimen --> schedule miralax/senna : Hx of urinary retention -Cr 0.90<0.77 -Flomax ID: -WBC 10.4<15.8 -No antibiotics indicated -Mupirocin x 5 days for MRSA decolonization Heme: -Hb 11.5<13.1 Endo: Hx of DM -BGT 114-180, required 4U SSI -Hold home metformin, trulicity, glimeperide, farxiga MSK: -PT/OT --> cleared for home Prophylaxis: -Hold lovenox Restraints: -None Dispo: -DC home Total Care Time throughout the day today was >= 50 minutes (including chart/data review/analysis, care coordination, and [id number] encounter), and was spent discussing/counseling the patient/family regarding the diagnosis, care plan, and importance of compliance with the treatment plan for Avery Vasquez. I examined the patient independently. I reviewed relevant data myself and may have also done so in the context of team rounds. A full chart review was performed. Level of Medical Decision Making: [x]High []Moderate []Low Complexity: [x]Acute or chronic illness/injury posing a threat to life or bodily function without treatment (HIGH) []Chronic illness with severe exacerbation, progression, or side effect of treatment (HIGH) []Chronic illness with mild to moderate exacerbation, progression, or side effect of treatment (MOD) []Previously undiagnosed (new) problem with uncertain prognosis (MOD) []Acute illness with systemic symptoms (MOD) []Acute, complicated injury (MOD) []Multiple stable chronic illnesses (MOD) Risk: [x]Parental controlled substances (HIGH) []Decision resuscitate de-escalate care because of poor prognosis (HIGH) []Decision regarding elective major surgery with identified patient or procedure risk factors (HIGH) []Decision regarding emergency major surgery (HIGH) []Drug or therapy requiring intensive monitoring (HIGH) []Requires close neuro-critical care monitoring due to risk of neurological deterioration (HIGH) []Prescription drug management (MOD) []Decision regarding minor surgery with identified patient or procedure risk factors (MOD) []Decision regarding elective major surgery without limited identified patient or procedure risk factors (MOD) []Diagnosis or treatment significant limited by social determinants of health (MOD) Personally Reviewed/Independently interpreted patient's: [x]Epic notes [x]Radiology studies [x]Labs []EKG [x]Ordering tests []Other Discussed/ With: [x]Patient/Family [x]RN [x]Consultants []Primary Team [x]SW/TCC []Other Time was spent: -Reviewing the medical record, including recent tests and results -Ordering prescription medications/tests and procedures -Communicating results to the patient/family/caregiver -Counseling/educating the patient/family/caregiver -Documenting clinical information in the patient's electronic record -Co-ordination of care for the patient -Performing a medically appropriate exam and evaluation Dale Biswas MD, FACS Division of Trauma, Surgical Critical Care, & Acute Care Surgery Department of Surgery [facility] -- Daily Trauma Progress Note Resident 06/27/2024 11:48 AM Admit Date: 06/26/2024 Post Trauma Day 1 Other Attacked by his cow HISTORY OF TRAUMATIC EVENT: The incident happened around 9 AM on 06/26/24. 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 When he came over to check the cow, the cow got up and attac (more content not included)... Normal [facility] BASIC METABOLIC PANELon 10-2 Anion gap [Moles/Vol] 8 mmol/L Normal 3-13 [facility] Comment on above: Performed By: #### L [id number] ####Occupancy Specialist: GATO GRAY ([phone])[address] Calcium [Mass/Vol] 10.6 mg/dL High 8.4-10.4 [facility] Comment on above: Performed By: #### L [id number] ####Occupancy Specialist: GATO GRAY ([phone])[facility] ([facility])[address] [place] [address] Chloride [Moles/Vol] 109 mmol/L High 98-107 [facility] Comment on above: Performed By: #### L [id number] ####Occupancy Specialist: GATO GRAY ([phone])[facility])[address] [place] [address] CO2 [Moles/Vol] 19 mmol/L Low 22-30 [facility] Comment on above: Performed By: #### L [id number] ####Occupancy Specialist: GATO GRAY ([phone])[facility])[address] [place] [address] Creatinine [Mass/Vol] 0.77 mg/dL Normal 0.66-1.25 [facility] Comment on above: Performed By: #### L [id number] ####Occupancy Specialist: GATO GRAY ([phone])[facility])[address] [place] [address] GLOMERULAR FILTRATION RATE ML/MIN/1.73 SQ M.PREDICTED >90.0 Normal >60.0 [facility] Comment on above: Result Comment: Calc ulation based on the Chronic Kidney Disease Epidemiology Collaboration (CKD-EPI) equation refit without adjustment for race Performed By: #### L [id number] ####Occupancy Specialist: GATO GRYA ([phone])[facility])[address] [place] [address] Glucose [Mass/Vol] 148 mg/dL High 70-100 [facility] Comment on above: Performed By: #### L [id number] ####Occupancy Specialist: GATO GRAY ([phone])[facility])[address] [place] [address] Potassium [Moles/Vol] 4.9 mmol/L Normal 3.5-5.1 [facility] Comment on above: Performed By: #### L [id number] ####Occupancy Specialist: GATO GRAY ([phone])[facility])[address] [place] [address] Sodium [Moles/Vol] 136 mmol/L Normal 135-145 [facility] Comment on above: Performed By: #### L [id number] ####Occupancy Specialist: GATO GRAY ([phone])[facility] ([facility])[address] [place] [address] Urea nitrogen [Mass/Vol] 21 mg/dL High 9-20 [facility] Comment on above: Performed By: #### L [id number] ####Occupancy Specialist: GATO GRAY ([phone])[facility] ([facility])[address] [place] [address] Basic metabolic 1998 panelon 06-26-2024 Anion gap [Moles/Vol] 8 mmol/L 3 - 13 mmol/L [facility] Calcium [Mass/Vol] 10.6 mg/dL High 8.4 - 10. 4 mg/dL [facility] Chloride [Moles/Vol] 109 mmol/L High 98 - 10 7 mmol/L [facility] CO2 [Moles/Vol] 19 mmol/L Low 22 - 30 mmol/L [facility] Creatinine [Mass/Vol] 0.77 mg/dL 0.66 - 1.25 mg/dL [facility] GFR/1.73 sq M.predicted (S/P/Bld) [Vol rate/Area] - PINF [facility] Comment on above: Calculation based on the Chronic Kidney Disease Epidemiology Collaboration (CKD-EPI) equation refit without adjustment for race Glucose [Mass/Vol] 148 mg/dL High 70 - 100 mg/dL [facility] Interpretation and review of laboratory results Abnormal [facility] Potassium [Moles/Vol] 4.9 mmol/L 3.5 - 5.1 mmol/L [facility] Sodium [Moles/Vol] 136 mmol/L 135 - 145 mmol/L [facility] Urea nitrogen [Mass/Vol] 21 mg/dL High 9 - 20 mg/dL [facility] CBC W Auto Differential pane l (Bld)on 06-26-2024 Basophils (Bld) [#/Vol] 0 10*3/uL 0.0 - 0.2 10*3/uL [facility] Basophils/100 WBC (Bld) 0.2 % 0.0 - 2.0 % [facility] Eosinophils (Bld) [#/Vol] 0 10*3/uL 0.0 - 0.5 10*3/uL [facility] Eosinophils/100 WBC (Bld) 0 % 0.0 - 6.0 % [facility] Erythrocyte distribution width (RBC) [Ratio] 14.3 % 11.5 - 15.0 % [facility] Hematocrit (Bld) [Volume fraction] 40.2 % 40.0 - 52.0 % [facility] Hemoglobin (Bld) [Mass/Vol] 13.1 g/dL 13.0 - 18.0 g/dL [facility] Immature granulocytes (Bld) [#/Vol] 0.1 10*3/uL High NINF - 0.1 10*3/uL [facility] Immature granulocytes/100 WBC (Bld) 0.3 % 0.0 - 2.0 % [facility] Interpretation and review of laboratory results Abnormal [facility] Lymphocytes (Bld) [#/Vol] 0.8 10*3/uL Low 1.0 - 4.3 10*3/uL [facility] Lymphocytes/100 WBC (Bld) 4.7 % Low 15.0 - 45.0 % [facility] MCH (RBC) [Entitic mass] 29.1 pg 26.0 - 34.0 pg [facility] MCHC (RBC) [Mass/Vol] 32.6 % 30.5 - 36.0 % [facility] MCV (RBC) [Entitic vol] 89.3 fL 77.0 - 99.0 fL [facility] Monocytes (Bld) [#/Vol] 0.7 10*3/uL 0.0 - 0.9 10*3/uL [facility] Monocytes/100 WBC (Bld) 4.7 % Low 5.0 - 13.0 % [facility] Neutrophils (Bld) [#/Vol] 14.2 10*3/uL High 1.8 - 7.5 10*3/uL [facility] Neutrophils/100 WBC (Bld) 90.1 % High 38.0 - 82.0 % [facility] Nucleated RBC/100 WBC (Bld) [Ratio] 0 % [facility] Platelet mean volume (Bld) [Entitic vol] 9.7 fL 9.0 - 12.7 fL [facility] Platelets (Bld) [#/Vol] 276 10*3/uL 140 - 440 10*3/uL [facility] RBC (Bld) [#/Vol] 4.5 10*6/uL 4.40 - 5.90 10*6/uL [facility] WBC (Bld) [#/Vol] 15.8 10*3/uL High 3.6 - 10.7 10*3/uL [facility] CBC WITH AUTO DIFFERENTIALon 06-26-2024 Basophils (Bld) [#/Vol] 0.0 10*3/uL Normal 0.0-0.2 [facility] Comment on above: Performed By: #### L [id number] ####Occupancy Specialist: GATO GRAY ([phone])[facility])[address] [place] [address] Basophils/100 WBC (Bld) 0.2 % Normal 0.0-2.0 [facility] Comment on above: Performed By: #### L [id number] ####Occupancy Specialist: GATO GRAY ([phone])[facility])[address] [place] [address] Eosinophils (Bld) [#/Vol] 0.0 10*3/uL Normal 0.0-0.5 [facility] Comment on above: Performed By: #### L [id number] ####Occupancy Specialist: GATO GRAY ([phone])[facility])[address] [place] [address] Eosinophils/100 WBC (Bld) 0.0 % Normal 0.0-6.0 [facility] Comment on above: Performed By: #### L [id number] ####Occupancy Specialist: GATO GRAY ([phone])[facility])[address] [place] [address] Erythrocyte distribution width (RBC) [Ratio] 14.3 % Normal 11.5-15.0 [facility] Comment on above: Performed By: #### L [id number] ####Occupancy Specialist: GATO GRAY ([phone])[facility])[address] [place] [address] Hematocrit (Bld) [Volume fraction] 40.2 % Normal 40.0-52.0 [facility] Comment on above: Performed By: #### L [id number] ####Occupancy Specialist: GATO GRAY ([phone])[facility])[address] [place] [address] Hemoglobin (Bld) [Mass/Vol] 13.1 g/dL Normal 13.0-18.0 [facility] Comment on above: Performed By: #### L [id number] ####Occupancy Specialist: GATO GRAY ([phone])[facility])[address] [place] [address] IMMATURE GRANS % 0.3 % Normal 0.0-2.0 [facility] Comment on above: Performed By: #### L [id number] ####Occupancy Specialist: GATO GRAY ([phone])[facility])[address] [place] [address] IMMATURE GRANS ABSOLUTE 0.1 10*3/uL High <0.1 [facility] Comment on above: Performed By: #### L [id number] ####Occupancy Specialist: GATO GRAY ([phone])[facility])[address] [place] [address] Lymphocytes (Bld) [#/Vol] 0.8 10*3/uL Low 1.0-4.3 [facility] Comment on above: Performed By: #### L [id number] ####Occupancy Specialist: GATO GRAY ([phone])[facility])[address] [place] [address] Lymphocytes/100 WBC (Bld) 4.7 % Low 15.0-45.0 [facility] Comment on above: Performed By: #### L [id number] ####Occupancy Specialist: GATO GRAY ([phone])[facility])[address] [place] [address] MCH (RBC) [Entitic mass] 29.1 pg Normal 26.0-34.0 [facility] Comment on above: Performed By: #### L [id number] ####Occupancy Specialist: GATO GRAY ([phone])[facility])[address] [place] [address] MCHC 32.6 % Normal 30.5-36.0 [facility] Comment on above: Performed By: #### L [id number] ####Occupancy Specialist: GATO GRAY ([phone])[facility])[address] [place] [address] MCV (RBC) [Entitic vol] 89.3 fL Normal 77.0-99.0 [facility] Comment on above: Performed By: #### L [id number] ####Occupancy Specialist: GATO GRAY ([phone])[facility])[address] [place] [address] Monocytes (Bld) [#/Vol] 0.7 10*3/uL Normal 0.0-0.9 [facility] Comment on above: Performed By: #### L [id number] ####Occupancy Specialist: GATO GRAY ([phone])[facility])[address] [place] [address] Monocytes/100 WBC (Bld) 4.7 % Low 5.0-13.0 [facility] Comment on above: Performed By: #### L [id number] ####Occupancy Specialist: GATO GRAY ([phone])[facility])[address] [place] [address] NEUTROPHILS ABSOLUTE 14.2 10*3/uL High 1.8-7.5 [facility] Comment on above: Performed By: #### L [id number] ####Occupancy Specialist: GATO GRAY ([phone])[facility])[address] [place] [address] Neutrophils/100 WBC (Bld) 90.1 % High 38.0-82.0 [facility] Comment on above: Performed By: #### L [id number] ####Occupancy Specialist: GATO GRAY ([phone])[facility])[address] [place] [address] NRBC 0.0 /100 WBCs Normal 0.0-2.0 [facility] Comment on above: Performed By: #### L [id number] ####Occupancy Specialist: GATO GRAY ([phone])[facility])[address] [place] [address] Platelet mean volume (Bld) [Entitic vol] 9.7 fL Normal 9.0-12.7 [facility] Comment on above: Performed By: #### L [id number] ####Occupancy Specialist: GATO GRAY ([phone])[facility] ([facility])[address] [place] [address] Platelets (Bld) [#/Vol] 276 10*3/uL Normal 140-440 [facility] Comment on above: Performed By: #### L [id number] ####Occupancy Specialist: GATO GRAY ([id number])[facility] ([facility])[address] [place] [address] RBC (Bld) [#/Vol] 4.50 10*6/uL Normal 4.40-5.90 [facility] Comment on above: Performed By: #### L [id number] ####Occupancy Specialist: GATO GRAY ([phone])[facility])[address] [place] [address] WBC (Bld) [#/Vol] 15.8 10*3/uL High 3.6-10.7 [facility] Comment on above: Performed By: #### L [id number] ####Occupancy Specialist: GATO GRAY ([phone])[facility])[address] [place] [address] CT CHEST WO IV CONTRASTon CT CHEST WO IV CONTRAST Patient Name: AVERY HERNANDEZ : 1950 Exam Date/Time: 06/26/2024 21:12 Procedure: CT CHEST WO IV CONTRAST Ordering Provider: STOVALL KATIE Reason For Exam: Chest trauma, blunt EXAMINATION: CT CHEST WO IV CONTRAST CLINICAL HISTORY: Chest trauma, blunt COMPARISON: None TECHNIQUE: Contiguous axial images of the chest without contrast were obtained from above the lung apices through the level of the adrenal glands. Dose reduction was employed with automated exposure control. FINDINGS: Cardiovasculature: The heart is large. Severe three-vessel coronary calcification. Atherosclerotic calcifications within the thoracic aorta. Mediastinum/Pericardium: Small pericardial effusion. Pleura: No pneumothorax or hemothorax. Central Airways: Widely patent. Lungs: No contusion or laceration. Nodules: Diffuse subpleural micronodules in the right lower lobe of uncertain significance (series 5, images 187, 195 and 201), the largest 3.5 mm. Lymph Nodes: No thoracic lymphadenopathy is evident. Included images of the upper abdomen: Gallstones are present. There is a small amount of excreted contrast in the renal collecting systems bilaterally, presumably from the recent outside CT. Visualized musculoskeletal structures: Acute oblique fracture of the mid and distal right clavicle with mild posterosuperior displacement of the distal fracture fragment and surrounding supraclavicular hematoma. Nondisplaced acute right anterior second and third rib fractures. There is partially visualized shoulder arthroplasty hardware bilaterally. IMPRESSION: 1. Right distal clavicle fracture and nondisplaced right anterior second and third rib fractures. 2. No other acute traumatic injuries. 3. Cardiomegaly, three-vessel coronary artery calcification, and small pericardial effusion. Report Dictated on Electronically Signed By: Edenilson Barnett MD Electronically Signed Date/Time: 06/26/2024 9:21 PM EDT Chest trauma, blunt, chest pain, concern for rib fracture on the [facility] CT Chest WO contraston 06-26 1. Right distal clavicle fracture and nondisplaced right anterior second and third rib fractures. 2. No other acute traumatic injuries. 3. Cardiomegaly, three-vessel coronary artery calcification, and small pericardial effusion. Report Dictated on Electronically Signed By: Edenilson Barnett MD Electronically Signed Date/Time: 06/26/2024 9:21 PM EDT [facility] Patient Name: AVERY [facility]ASQUEZ : 1950 [id number] Exam Date/Time: 06/26/2024 21:12 Procedure: CT CHEST WO IV CONTRAST Ordering Provider: STOVALL KATIE Reason For Exam: Chest trauma, blunt EXAMINATION: CT CHEST WO IV CONTRAST CLINICAL HISTORY: Chest trauma, blunt COMPARISON: None TECHNIQUE: Contiguous axial images of the chest without contrast were obtained from above the lung apices through the level of the adrenal glands. Dose reduction was employed with automated exposure control. FINDINGS: Cardiovasculature: The heart is large. Severe three-vessel coronary calcification. Atherosclerotic calcifications within the thoracic aorta. Mediastinum/Pericardium: Small pericardial effusion. Pleura: No pneumothorax or hemothorax. Central Airways: Widely patent. Lungs: No contusion or laceration. Nodules: Diffuse subpleural micronodules in the right lower lobe of uncertain significance (series 5, images 187, 195 and 201), the largest 3.5 mm. Lymph Nodes: No thoracic lymphadenopathy is evident. Included images of the upper abdomen: Gallstones are present. There is a small amount of excreted contrast in the renal collecting systems bilaterally, presumably from the recent outside CT. Visualized musculoskeletal structures: Acute oblique fracture of the mid and distal right clavicle with mild posterosuperior displacement of the distal fracture fragment and surrounding supraclavicular hematoma. Nondisplaced acute right anterior second and third rib fractures. There is partially visualized shoulder arthroplasty hardware bilaterally. [facility] Edenilson Barnett M D - 06/26/2024 Patient Name: AVERY VASQUEZ : 1950 [id number] Exam Date/Time: 06/26/2024 21:12 Procedure: CT CHEST WO IV CONTRAST Ordering Provider: STOVALL KATIE Reason For Exam: Chest trauma, blunt EXAMINATION: CT CHEST WO IV CONTRAST CLINICAL HISTORY: Chest trauma, blunt COMPARISON: None TECHNIQUE: Contiguous axial images of the chest without contrast were obtained from above the lung apices through the level of the adrenal glands. Dose reduction was employed with automated exposure control. FINDINGS: Cardiovasculature: The heart is large. Severe three-vessel coronary calcification. Atherosclerotic calcifications within the thoracic aorta. Mediastinum/Pericardium: Small pericardial effusion. Pleura: No pneumothorax or hemothorax. Central Airways: Widely patent. Lungs: No contusion or laceration. Nodules: Diffuse subpleural micronodules in the right lower lobe of uncertain significance (series 5, images 187, 195 and 201), the largest 3.5 mm. Lymph Nodes: No thoracic lymphadenopathy is evident. Included images of the upper abdomen: Gallstones are present. There is a small amount of excreted contrast in the renal collecting systems bilaterally, presumably from the recent outside CT. Visualized musculoskeletal structures: Acute oblique fracture of the mid and distal right clavicle with mild posterosuperior displacement of the distal fracture fragment and surrounding supraclavicular hematoma. Nondisplaced acute right anterior second and third rib fractures. There is partially visualized shoulder arthroplasty hardware bilaterally. IMPRESSION: 1. Right distal clavicle fracture and nondisplaced right anterior second and third rib fractures. 2. No other acute traumatic injuries. 3. Cardiomegaly, three-vessel coronary artery calcification, and small pericardial effusion. Report Dictated on Electronically Signed By: Edenilson Barnett MD Electronically Signed Date/Time: 06/26/2024 9:21 PM EDT [facility] Radiology Study observation (narrative) [facility] WO contrastOrdered By: Edenilson Barnett on 06-26-2024 [employer] Work Phone: CT HEAD WO IV CONTRASTon CT HEAD WO IV CONTRAST Patient Name: AVERY ESPAÑA : 1950 Exam Date/Time: 06/26/2024 18:20 Procedure: CT HEAD WO IV CONTRAST Ordering Provider: MARIN ALEKSANDAR Reason For Exam: Follow up intracranial hemorrhage, there is a comparison film from OSH in PACS CT HEAD WITHOUT CONTRAST CLINICAL INDICATION: Intracranial hemorrhage follow-up. Bovine assault. Axial CT images of the brain were obtained without intravenous contrast. Coronal and sagittal reformatted images were also made available for interpretation. Dose reduction was employed with automated exposure control. COMPARISON: Outside head CT dated 06/26/2024 at 10:59 AM. FINDINGS: Again is identified a small amount of subarachnoid hemorrhage anterior to the right temporal lobe and extending into the right sylvian fissure, not appreciably changed when compared to the study from earlier the same day. Small parenchymal contusions within the lateral aspect of the right frontotemporal region and parasagittal right frontal lobe also appear unchanged. No new areas of intracranial hemorrhage are identified. No midline shift or mass effect is seen. There is no definite acute cortical infarction. No fracture seen on the bone windows. Right frontotemporal scalp hematoma is unchanged. The visualized portion of the paranasal sinuses appear clear. There is atherosclerotic calcification of the carotid siphons. IMPRESSION: Subarachnoid hemorrhage within the right sylvian fissure and anterior right temporal lobe appears unchanged. Small parenchymal contusions within the right frontotemporal region and parasagittal right frontal lobe also appears stable. No new areas of intracranial hemorrhage are seen. No midline shift or mass effect. Small right frontotemporal scalp contusion, unchanged. Report Dictated on Electronically Signed By: Bert Smith MD Electronically Signed Date/Time: 06/26/2024 6:44 PM EDT [facility] CT Head WO contraston 2023 Subarachnoid hemorrhage within the right sylvian fissure and anterior right temporal lobe appears unchanged. Small parenchymal contusions within the right frontotemporal region and parasagittal right frontal lobe also appears stable. No new areas of intracranial hemorrhage are seen. No midline shift or mass effect. Small right frontotemporal scalp contusion, unchanged. Report Dictated on Electronically Signed By: Bert Smith MD Electronically Signed Date/Time: 06/26/2024 6:44 PM EDT [facility] Patient Name: AVERY VASQUEZ : 1950 [id number] Exam Date/Time: 06/26/2024 18:20 Procedure: CT HEAD WO IV CONTRAST Ordering Provider: MARIN ALEKSANDAR Reason For Exam: Follow up intracranial hemorrhage, there is a comparison film from OSH in PACS CT HEAD WITHOUT CONTRAST CLINICAL INDICATION: Intracranial hemorrhage follow-up. Bovine assault. Axial CT images of the brain were obtained without intravenous contrast. Coronal and sagittal reformatted images were also made available for interpretation. Dose reduction was employed with automated exposure control. COMPARISON: Outside head CT dated 06/26/2024 at 10:59 AM. FINDINGS: Again is identified a small amount of subarachnoid hemorrhage anterior to the right temporal lobe and extending into the right sylvian fissure, not appreciably changed when compared to the study from earlier the same day. Small parenchymal contusions within the lateral aspect of the right frontotemporal region and parasagittal right frontal lobe also appear unchanged. No new areas of intracranial hemorrhage are identified. No midline shift or mass effect is seen. There is no definite acute cortical infarction. No fracture seen on the bone windows. Right frontotemporal scalp hematoma is unchanged. The visualized portion of the paranasal sinuses appear clear. There is atherosclerotic calcification of the carotid siphons. [facility] Bert Smith MD - 06/26/2024 Patient Name: AVERY VASQUEZ : 1950 [id number] Exam Date/Time: 06/26/2024 18:20 Procedure: CT HEAD WO IV CONTRAST Ordering Provider: MARIN ALEKSANDAR Reason For Exam: Follow up intracranial hemorrhage, there is a comparison film from OSH in PACS CT HEAD WITHOUT CONTRAST CLINICAL INDICATION: Intracranial hemorrhage follow-up. Bovine assault. Axial CT images of the brain were obtained without intravenous contrast. Coronal and sagittal reformatted images were also made available for interpretation. Dose reduction was employed with automated exposure control. COMPARISON: Outside head CT dated 06/26/2024 at 10:59 AM. FINDINGS: Again is identified a small amount of subarachnoid hemorrhage anterior to the right temporal lobe and extending into the right sylvian fissure, not appreciably changed when compared to the study from earlier the same day. Small parenchymal contusions within the lateral aspect of the right frontotemporal region and parasagittal right frontal lobe also appear unchanged. No new areas of intracranial hemorrhage are identified. No midline shift or mass effect is seen. There is no definite acute cortical infarction. No fracture seen on the bone windows. Right frontotemporal scalp hematoma is unchanged. The visualized portion of the paranasal sinuses appear clear. There is atherosclerotic calcification of the carotid siphons. IMPRESSION: Subarachnoid hemorrhage within the right sylvian fissure and anterior right temporal lobe appears unchanged. Small parenchymal contusions within the right frontotemporal region and parasagittal right frontal lobe also appears stable. No new areas of intracranial hemorrhage are seen. No midline shift or mass effect. Small right frontotemporal scalp contusion, unchanged. Report Dictated on Electronically Signed By: Bert Smith MD Electronically Signed Date/Time: 06/26/2024 6:44 PM EDT [facility] Radiology Study observation (narrative) [facility] Consulton 06-26-2024 Consult Ortho Consult Patient: Avery Vasquez Date of : 1950 Acct: [id number] PCP: Aidan Argueta MD Date of Admission: 06/26/2024 Date of Service: Pt seen/examined on 06/26/2024 Chief Complaint: Right shoulder pain History Of Present Illness: This is a 74 y.o. male who is being evaluated by the orthopedic service today for right shoulder pain. 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 He walked towards the cow and it stood up hitting him in the chest and knocking him backwards. He states that he lost consciousness during this, and when he woke up he had right shoulder pain. He denies any numbness and tingling in his right arm. He denies any pain in his other extremities. He denies alcohol, tobacco, illicit drug use. Patient ambulation status: no difficulty Antiplatelets/Anticoagulat ion includes: none Hx from chart and/or Pt. Past Medical History: No past medical history on file. Past Surgical History: No past surgical history on file. Home Medications: Prior to Admission medications Medication Sig Start Date End Date Taking? Authorizing Provider aspirin 81 MG EC tablet Take 81 mg by mouth daily. Historical Provider, atorvastatin (Lipitor) 10 MG tablet Take 10 mg by mouth Nightly. Historical Provider, Calcium Carbonate-Vit D-Min (Calcium 600+D3 Plus Minerals) 600-800 MG-UNIT tablet Take 1 tablet by mouth daily. Historical Provider, dapagliflozin (Farxiga) 10 MG tablet Take 10 mg by mouth daily. Historical Provider, dulaglutide (Trulicity) 0.75 MG/0.5ML Inject 0.75 mg under the skin 1 (one) time per week. Historical Provider, glimepiride (Amaryl) 1 MG tablet Take 1 mg by mouth daily (with breakfast). Historical Provider, metFORMIN (Glucophage) 500 MG tablet Take 500 mg by mouth in the morning and 500 mg in the evening. Take with meals. Historical Provider, Multiple Vitamins-Minerals (MULTIVITAMIN ADULT, MINERALS, PO) Take 1 tablet by mouth daily. Historical Provider, tamsulosin (Flomax) 0.4 MG 24 hr capsule Take 0.4 mg by mouth Nightly. Historical Provider, valsartan (Diovan) 160 MG tablet Take 160 mg by mouth 2 times daily. Historical Provider, Current Hospital Medications: Current Facility-Administered Medications: acetaminophen (Tylenol) tablet 1,000 mg, 1,000 mg, Oral, q8h PRN, Serge Razo III, MD atorvastatin (Lipitor) tablet 10 mg, 10 mg, Oral, Nightly, Shy Doran MD bacitracin ointment, , Topical, TID, Shy Doran MD, Given at 06/26/24 1615 dextrose 5 % infusion, 100 mL/hr, IntraVENous, PRN, Shy Doran MD dextrose 50 % solution 12.5 g, 12.5 g, IntraVENous, PRN, Shy Doran MD glucagon (human recombinant) injection 1 mg, 1 mg, IntraMUSCular, PRN, Shy Doran MD glucose oral gel 15 g, 15 g, Oral, PRN, Shy Doran MD hydrALAZINE (Apresoline) injection 10 mg, 10 mg, IntraVENous, q10 min PRN, Serge Razo III, MD Insulin Lispro (Humalog) injection 0-12 Units, 0-12 Units, SubCUTAneous, TID WC, 2 Units at 06/26/24 1715 AND Insulin Lispro (Humalog) injection 0-12 Units, 0-12 Units, SubCUTAneous, Nightly, Shy Doran MD labetalol (Normodyne,Trandate) injection 10 mg, 10 mg, IntraVENous, q10 min PRN, Serge Razo III, MD levETIRAcetam (Keppra) tablet 500 mg, 500 mg, Oral, BID, Shy Doran MD mupirocin (Bactroban) 2 % ointment 1 Application, 1 Application, Nasal, BID, Serge Razo III, MD naloxone (Narcan) injection 0.4 mg, 0.4 mg, IntraVENous, q5 min PRN, Alonso Marin MD ondansetron ODT (Zofran-ODT) disintegrating tablet 4 mg, 4 mg, Oral, q8h PRN OR ondansetron (Zofran) injection 4 mg, 4 mg, IntraVENous, q6h PRN, Serge Razo III, MD, 4 mg at 06/26/24 1607 oxyCODONE (Roxicodone) immediate release tablet 2.5 mg, 2.5 mg, Oral, q4h PRN OR oxyCODONE (Roxicodone) immediate release tablet 5 mg, 5 mg, Oral, q4h PRN, Serge Razo III, MD polyethylene glycol (PEG) 3350 (Miralax) packet 17 g, 17 g, Oral, Daily PRN, Serge Razo III, MD sodium chloride 0.9 % infusion, 75 mL/hr, IntraVENous, Continuous, Serge Razo III, MD, Last Rate: 75 mL/hr at 06/26/24 1536, 75 mL/hr at 06/26/24 1536 sodium chloride 0.9% (NS) flush 30 mL, 30 mL, IntraVENous, q6h, Serge Razo III, MD sodium chloride 0.9% (NS) flush 30 mL, 30 mL, IntraVENous, PRN, Serge Razo III, MD sodium chloride 0.9% (NS) flush 30 mL, 30 mL, IntraVENous, PRN, Serge Razo III, MD tamsulosin (Flomax) 24 hr capsule 0.4 mg, 0.4 mg, Oral, Nightly, Shy Doran MD valsartan (Diovan) tablet 160 mg, 160 mg, Oral, BID, Shy Doran MD Allergies: Bactrim [sulfamethoxazole-trimetho prim], Hydrocodone-acetaminophen, Lisinopril, and Tramadol Social History: Social History Socioeconomic History Marital status: Spouse n (more content not included)... Normal [facility] Laboratory - Chemistry and C hemistry - challengeon 06-26-2024 Glucose [Mass/Vol] 180 mg/dL High 70 - 100 mg/dL [facility] Glucose [Mass/Vol] 161 mg/dL High 70 - 100 mg/dL [facility] No Panel Informationon 06-26 Interpretation and review of laboratory results Abnormal [facility] Performed by: [facility], [address] [place] [id number] CLIA ID: [id number] [facility] Interpretation and review of laboratory results Abnormal [facility] Performed by: [facility], [address] [place] [id number] CLIA ID: [id number] [facility] Progress Noteon 06-26-2024 Progress Note I was notified by e resident that the patient had arrived on T2 as a Direct Admit. I immediately came to T2 ICU to evaluate patient. I was at the bedside within 15 minutes of patient arrival. Please see H&P for further details. Normal [facility] XR CLAVICLE RIGHTon 06-26-20 24 XR CLAVICLE RIGHT Patient Name: AVERY VASQUEZ : 1950 Exam Date/Time: 06/26/2024 17:40 Procedure: XR CLAVICLE RIGHT Ordering Provider: MARIN ALEKSANDAR Reason For Exam: Fracture RIGHT CLAVICLE CLINICAL INDICATION: Fracture Two views of the right clavicle were obtained. COMPARISON: None FINDINGS: There is a mildly displaced fracture of the right distal clavicular diaphysis. Mild degenerative changes of the right acromioclavicular joint are noted. The right coracoclavicular interval appears normal. A right reverse total shoulder arthroplasty is noted, not entirely imaged. The visualized portion of the right upper ribs are unremarkable. IMPRESSION: Mildly displaced right distal clavicular fracture. Report Dictated on Electronically Signed By: Bert Smith MD Electronically Signed Date/Time: 06/26/2024 5:57 PM EDT Normal [facility] XR Clavicle - right Viewson 06-26-2024 Mildly displaced right distal clavicular fracture. Report Dictated on Electronically Signed By: Bert Smtih MD Electronically Signed Date/Time: 06/26/2024 5:57 PM EDT [facility] Patient Name: AVERY VASQUEZ : 1950 [id number] Exam Date/Time: 06/26/2024 17:40 Procedure: XR CLAVICLE RIGHT Ordering Provider: MARIN ALEKSANDAR Reason For Exam: Fracture RIGHT CLAVICLE CLINICAL INDICATION: Fracture Two views of the right clavicle were obtained. COMPARISON: None FINDINGS: There is a mildly displaced fracture of the right distal clavicular diaphysis. Mild degenerative changes of the right acromioclavicular joint are noted. The right coracoclavicular interval appears normal. A right reverse total shoulder arthroplasty is noted, not entirely imaged. The visualized portion of the right upper ribs are unremarkable. [facility] Bert Smith MD - 06/26/2024 Patient Name: AVERY VASQUEZ : 1950 Exam Date/Time: 06/26/2024 17:40 Procedure: XR CLAVICLE RIGHT Ordering Provider: MARIN ALEKSANDAR Reason For Exam: Fracture RIGHT CLAVICLE CLINICAL INDICATION: Fracture Two views of the right clavicle were obtained. COMPARISON: None FINDINGS: There is a mildly displaced fracture of the right distal clavicular diaphysis. Mild degenerative changes of the right acromioclavicular joint are noted. The right coracoclavicular interval appears normal. A right reverse total shoulder arthroplasty is noted, not entirely imaged. The visualized portion of the right upper ribs are unremarkable. IMPRESSION: Mildly displaced right distal clavicular fracture. Report Dictated on Electronically Signed By: Bert Smith MD Electronically Signed Date/Time: 06/26/2024 5:57 PM EDT [facility] Radiology Study observation (narrative) [facility] XR Clavicle - right ViewsOrd ered By: Bert Smith on 06-26-2024 [facility] Basophil percentageOrdered B y: Aidan Kendall on 11-14-2023 Bilirubin [Mass/Vol] 0.60 mg/dL 0.20-1.00 [facility] Comment on above: For patients on eltr ombopag therapy, use of Dimension [place] TBIL is not recommended. Chloride [Moles/Vol] 108 mmol/L 98-107 [facility] Cholesterol [Mass/Vol] 140 mg/dL <200 [facility] Comment on above: <200 mg/dL Desirable 200-240 mg/dL Borderline >240 mg/dL High Risk Glucose [Mass/Vol] 161 mg/dL 74-106 [facility] Comment on above: Fasting Glucose resu lt greater than or equal to 126 mg/dL suggests DIABETES MELLITUS per A.D.A. criteria. Potassium [Moles/Vol] 4.1 mmol/L 3.5-5.1 [facility] Protein [Mass/Vol] 7.5 g/dL 6.4-8.2 [facility] Sodium [Moles/Vol] 139 mmol/L 136-145 [facility] Triglyceride [Mass/Vol] 56 mg/dL <199 [facility] Comment on above: The drugs N-Acetylcy steine and Metamizole may falsely depress this assay.Serum Triglycerides Reference Interval Normal <150 mg/dL Borderline high 150 - 199 mg/dL High 200 - 499 mg/dL Very High > or = 500 mg/dL Laboratory - Chemistry and C hemistry - challengeOrdered By: Aidan Argueta on 11-14-2023 Albumin/Globulin [Mass ratio] 0.8 {ratio} 0.9-2.4 [facility] ALP [Catalytic activity/Vol] 98 U/L 45-117 [facility] ALT [Catalytic activity/Vol] 38 U/L 16-61 [facility] Cholesterol in HDL [Mass/Vol] 50 mg/dL >40 [facility] Comment on above: The drugs N-Acetylcy steine and Metamizole may falsely depress this assay. Reference Range HDL <40 mg/dL Low HDL Cholesterol HDL >or= 60 mg/dL High HDL Cholesterol Cholesterol in LDL [Mass/Vol] 79 mg/dL 0-130 [facility] CO2 [Moles/Vol] 25.0 mmol/L 21.0-32.0 [facility] Globulin (S) [Mass/Vol] 4.1 g/dL 2.2-4.2 [facility] Urea nitrogen/Creatinine [Mass ratio] 22.2 mg/mg 10-20 [facility] No Panel InformationOrdered By: Aidan Argueta on 11-14-2023 Estimated GFR (MDRD) Amer 120 mL/min >60 [facility] Comment on above: GFR Calc Estimated GFR (MDRD) Non-Af Amer 99 mL/min >60 [facility] Comment on above: Non- GFR Calc Prostate Specific Antigen Screen 5.04 ng/mL 0.00-4.00 [facility] Comment on above: This test was perfor med using the TPSA assay method for [employer] chemistry system. Values obtained with differentassay methods cannot be used interchangably.When changing PSA assays in the course of monitoring apatient, additional sequential testing should be carriedout to confirm baseline values. VLDL Cholesterol 11 mg/dL 5-40 [facility] Serum or plasma calcium winsome urement (mass/volume)Ordered By: Aidan Argueta on 11-14-2023 Calcium [Mass/Vol] 10.0 mg/dL 8.5-10.1 [facility] Serum or plasma creatinine m easurement (mass/volume)Ordered By: Aidan Argueta on 11-14-2023 Creatinine [Mass/Vol] 0.81 mg/dL 0.70-1.30 [facility] Comment on above: The validity of the calculated GFR & GFRAA in patients over 70 years has not been determined. Clinical correlation is essential. Serum or plasma urea nitroge n measurement (mass/volume)Ordered By: Aidan Argueta on 11-14-2023 Urea nitrogen [Mass/Vol] 18 mg/dL 7-18 [facility] Thin prep Papanicolaou smear with manual screeningOrdered By: Aidan Argueta on 11-14-2023 Thin prep Papanicolaou smear with manual screening 3.4 g/dL 3.2-5.0 [facility] Thin prep Papanicolaou smear with manual screening 19 U/L 15-37 [facility] Thin prep Papanicolaou smear with manual screening 6 5-15 [facility] Whole blood hemoglobin A1c/t otal hemoglobin ratio (mass fraction)Ordered By: Aidan Argueta on 11-14-2023 HbA1c (Bld) [Mass fraction] 7.3 % 3.8-5.6 [facility] Comment on above: Normal < 5.7 % Predi abetic 5.7 - 6.4 % Diabetic >or= 6.5 % Please note range changes. Absolute lymphocyte countOrd ered By: Aidan Argueta on 07-18-2023 Lymphocytes Auto (Unsp spec) [#/Vol] 1.30 10*3/uL 0.83-4.51 [facility] Basophil percentageOrdered B y: Aidan Mckeondarryn on 07-18-2023 Basophils/100 WBC (Bld) 0.6 % 0-1 [facility] Bilirubin [Mass/Vol] 0.40 mg/dL 0.20-1.00 [facility] Comment on above: For patients on eltr ombopag therapy, use of Dimension [place] TBIL is not recommended. Chloride [Moles/Vol] 105 mmol/L 98-107 [facility] Cholesterol [Mass/Vol] 129 mg/dL <200 [facility] Comment on above: <200 mg/dL Desirable 200-240 mg/dL Borderline >240 mg/dL High Risk Eosinophils/100 WBC (Bld) 2.8 % 0-5 [facility] Glucose [Mass/Vol] 134 mg/dL 74-106 [facility] Comment on above: Fasting Glucose resu lt greater than or equal to 126 mg/dL suggests DIABETES MELLITUS per A.D.A. criteria. Neutrophils (Bld) [#/Vol] 4.3 10*3/uL 2.0-7.7 [facility] Neutrophils/100 WBC (Bld) 67.6 % 47-70 [facility] Potassium [Moles/Vol] 4.4 mmol/L 3.5-5.1 [facility] Protein [Mass/Vol] 7.5 g/dL 6.4-8.2 [facility] Sodium [Moles/Vol] 138 mmol/L 136-145 [facility] Triglyceride [Mass/Vol] 55 mg/dL <199 [facility] Comment on above: The drugs N-Acetylcy steine and Metamizole may falsely depress this assay.Serum Triglycerides Reference Interval Normal <150 mg/dL Borderline high 150 - 199 mg/dL High 200 - 499 mg/dL Very High > or = 500 mg/dL WBC (Bld) [#/Vol] 6.3 10*3/uL 4.4-11.0 [facility] Blood erythrocytes count (nu mber/volume)Ordered By: Aidan Argueta on 07-18-2023 RBC (Bld) [#/Vol] 4.58 10*6/uL 4.6-6.2 [facility] Blood hemoglobin measurement (mass/volume)Ordered By: Aidan Argueta on 07-18-2023 Hemoglobin (Bld) [Mass/Vol] 13.2 g/dL 13.0-16.5 [facility] Blood lymphocytes/100 leukoc ytesOrdered By: Aidan Argueta on 07-18-2023 Lymphocytes/100 WBC (Bld) 20.5 % 19-41 [facility] Blood monocytes/100 leukocyt esOrdered By: Aidan Argueta on 07-18-2023 Monocytes/100 WBC (Bld) 8.2 % 0-10 [facility] Blood platelet mean volumeOr dered By: Aidan Argueta on 07-18-2023 Platelet mean volume (Bld) [Entitic vol] 10.6 fL 6.2-12.0 [facility] Determination of erythrocyte mean corpuscular volume (MCV)Ordered By: Aidan Argueta on 07-18-2023 MCV (RBC) [Entitic vol] 90.4 fL 80-94 [facility] Hematocrit Auto (Bld) [Volum e fraction]Ordered By: Aidan Argueta on 07-18-2023 Hematocrit (Bld) [Volume fraction] 41.4 % 40-54 [facility] Laboratory - Chemistry and C hemistry - challengeOrdered By: Aidan Argueta on 07-18-2023 ALP [Catalytic activity/Vol] 109 U/L 45-117 [facility] ALT [Catalytic activity/Vol] 33 U/L 16-61 [facility] CO2 [Moles/Vol] 26.0 mmol/L 21.0-32.0 [facility] Globulin (S) [Mass/Vol] 3.9 g/dL 2.2-4.2 [facility] Urea nitrogen/Creatinine [Mass ratio] 25.1 mg/mg 10-20 [facility] Laboratory - Hematology and Cell countsOrdered By: Aidan Argueta on 07-18-2023 Erythrocyte distribution width (RBC) [Entitic vol] 47.2 fL 35.1-43.9 [facility] Erythrocyte distribution width (RBC) [Ratio] 14.2 % 11.6-14.6 [facility] Immature granulocytes/100 WBC (Bld) 0.300 % 0.0-0.9 [facility] Comment on above: IG% - Immature Granu locytes (promyelocytes, myelocytes and metamyelocytes) > 1% indicates that a LEFT SHIFT is Present. MCH (RBC) [Entitic mass] 28.8 pg 27.0-32.0 [facility] Nucleated RBC/100 WBC (Bld) [Ratio] 0 % 0-5 [facility] MCHC Auto (RBC) [Mass/Vol]Or dered By: Aidan Argueta on 07-18-2023 MCHC (RBC) [Mass/Vol] 31.9 g/dL 32-36 [facility] No Panel InformationOrdered By: Aidan Argueta on 07-18-2023 Estimated GFR (MDRD) Amer 116 mL/min >60 [facility] Comment on above: GFR Calc Estimated GFR (MDRD) Non-Af Amer 96 mL/min >60 [facility] Comment on above: Non- GFR Calc Vitamin D 25-Hydroxy 50.6 ng/mL [facility] Comment on above: Vitamin D 25(OH) Sta tus Range Deficiency <20 ng/mL (50nmol/L) Insufficiency 20 - 30 ng/mL (50 - 75 nmol/L) Sufficiency 30 - 100 ng/mL (75 - 250 nmol/L) Toxicity >100 ng/mL (>250 nmol/L) Platelets bldOrdered By: Todd Argueta on 07-18-2023 Platelets (Bld) [#/Vol] 276 10*3/uL 150-450 [facility] Serum or plasma albumin winsome urement (mass/volume)Ordered By: Aidan Argueta on 07-18-2023 Albumin [Mass/Vol] 3.6 g/dL 3.2-5.0 [facility] Serum or plasma albumin/glob ulin mass ratioOrdered By: Aidan Argueta on 07-18-2023 Albumin/Globulin [Mass ratio] 0.9 {ratio} 0.9-2.4 [facility] Serum or plasma calcium winsome urement (mass/volume)Ordered By: Aidan Argueta on 07-18-2023 Calcium [Mass/Vol] 10.1 mg/dL 8.5-10.1 [facility] Serum or plasma cholesterol in HDL measurement (mass/volume)Ordered By: Aidan Argueta on 07-18-2023 Cholesterol in HDL [Mass/Vol] 54 mg/dL >40 [facility] Comment on above: The drugs N-Acetylcy steine and Metamizole may falsely depress this assay. Reference Range HDL <40 mg/dL Low HDL Cholesterol HDL >or= 60 mg/dL High HDL Cholesterol Serum or plasma cholesterol in VLDL measurement (mass/volume)Ordered By: Aidan Argueta on 07-18-2023 Cholesterol in VLDL [Mass/Vol] 11 mg/dL 5-40 [facility] Serum or plasma creatinine m easurement (mass/volume)Ordered By: Aidan Argueta on 07-18-2023 Creatinine [Mass/Vol] 0.84 mg/dL 0.70-1.30 [facility] Comment on above: The validity of the calculated GFR & GFRAA in patients over 70 years has not been determined. Clinical correlation is essential. Serum or plasma low density lipoprotein (LDL) cholesterol measurement (mass/volume)Ordered By: Aidan Argueta on 07-18-2023 Cholesterol in LDL [Mass/Vol] 64 mg/dL 0-130 [facility] Serum or plasma urea nitroge n measurement (mass/volume)Ordered By: Aidan Argueta on 07-18-2023 Urea nitrogen [Mass/Vol] 21 mg/dL 7-18 [facility] Thin prep Papanicolaou smear with manual screeningOrdered By: Aidan rAgueta on 07-18-2023 Thin prep Papanicolaou smear with manual screening 16 U/L 15-37 [facility] Thin prep Papanicolaou smear with manual screening 7 5-15 [facility] Whole blood hemoglobin A1c/t otal hemoglobin ratio (mass fraction)Ordered By: Aidan Argueta on 07-18-2023 HbA1c (Bld) [Mass fraction] 6.5 % 3.8-5.6 [facility] Comment on above: Normal < 5.7 % Predi abetic 5.7 - 6.4 % Diabetic >or= 6.5 % Please note range changes. Absolute lymphocyte countOrd ered By: Aidan Argueta on 04-28-2023 Lymphocytes Auto (Unsp spec) [#/Vol] 1.39 10*3/uL 0.83-4.51 [facility] Basophil percentageOrdered B y: Aidan Argueta on 04-28-2023 Basophils/100 WBC (Bld) 0.7 % 0-1 [facility] Bilirubin [Mass/Vol] 0.40 mg/dL 0.20-1.00 [facility] Comment on above: For patients on eltr ombopag therapy, use of Dimension [place] TBIL is not recommended. Chloride [Moles/Vol] 103 mmol/L 98-107 [facility] Cholesterol [Mass/Vol] 117 mg/dL <200 [facility] Comment on above: <200 mg/dL Desirable 200-240 mg/dL Borderline >240 mg/dL High Risk Eosinophils/100 WBC (Bld) 3.6 % 0-5 [facility] Glucose [Mass/Vol] 120 mg/dL 74-106 [facility] Comment on above: Fasting Glucose resu lt from 100 to 125 mg/dL suggests IMPAIRED HOMEOSTASIS per A.D.A. criteria. Neutrophils (Bld) [#/Vol] 4.7 10*3/uL 2.0-7.7 [facility] Neutrophils/100 WBC (Bld) 67.4 % 47-70 [facility] Potassium [Moles/Vol] 4.6 mmol/L 3.5-5.1 [facility] Protein [Mass/Vol] 7.7 g/dL 6.4-8.2 [facility] Sodium [Moles/Vol] 136 mmol/L 136-145 [facility] Triglyceride [Mass/Vol] 62 mg/dL <199 [facility] Comment on above: The drugs N-Acetylcy steine and Metamizole may falsely depress this assay.Serum Triglycerides Reference Interval Normal <150 mg/dL Borderline high 150 - 199 mg/dL High 200 - 499 mg/dL Very High > or = 500 mg/dL WBC (Bld) [#/Vol] 6.9 10*3/uL 4.4-11.0 [facility] Blood erythrocytes count (nu mber/volume)Ordered By: Aidan Argueta on 04-28-2023 RBC (Bld) [#/Vol] 4.64 10*6/uL 4.6-6.2 [facility] Blood hemoglobin measurement (mass/volume)Ordered By: Aidan Argueta on 04-28-2023 Hemoglobin (Bld) [Mass/Vol] 13.8 g/dL 13.0-16.5 [facility] Blood lymphocytes/100 leukoc ytesOrdered By: Aidan Argueta on 04-28-2023 Lymphocytes/100 WBC (Bld) 20.1 % 19-41 [facility] Blood monocytes/100 leukocyt esOrdered By: Aidan Argueta on 04-28-2023 Monocytes/100 WBC (Bld) 7.8 % 0-10 [facility] Blood platelet mean volumeOr dered By: Aidan Argueta on 04-28-2023 Platelet mean volume (Bld) [Entitic vol] 10.0 fL 6.2-12.0 [facility] Determination of erythrocyte mean corpuscular volume (MCV)Ordered By: Aidan Argueta on 04-28-2023 MCV (RBC) [Entitic vol] 89.9 fL 80-94 [facility] Hematocrit Auto (Bld) [Volum e fraction]Ordered By: Aidan Argueta on 04-28-2023 Hematocrit (Bld) [Volume fraction] 41.7 % 40-54 [facility] Laboratory - Chemistry and C hemistry - challengeOrdered By: Aidan Argueta on 04-28-2023 ALP [Catalytic activity/Vol] 114 U/L 45-117 [facility] ALT [Catalytic activity/Vol] 34 U/L 16-61 [facility] CO2 [Moles/Vol] 28.0 mmol/L 21.0-32.0 [facility] Globulin (S) [Mass/Vol] 3.9 g/dL 2.2-4.2 [facility] Urea nitrogen/Creatinine [Mass ratio] 25.5 mg/mg 10-20 [facility] Laboratory - Hematology and Cell countsOrdered By: Aidan Argueta on 04-28-2023 Erythrocyte distribution width (RBC) [Entitic vol] 45.1 fL 35.1-43.9 [facility] Erythrocyte distribution width (RBC) [Ratio] 13.7 % 11.6-14.6 [facility] Immature granulocytes/100 WBC (Bld) 0.400 % 0.0-0.9 [facility] Comment on above: IG% - Immature Granu locytes (promyelocytes, myelocytes and metamyelocytes) > 1% indicates that a LEFT SHIFT is Present. MCH (RBC) [Entitic mass] 29.7 pg 27.0-32.0 [facility] Nucleated RBC/100 WBC (Bld) [Ratio] 0 % 0-5 [facility] MCHC Auto (RBC) [Mass/Vol]Or dered By: Aidan Argueta on 04-28-2023 MCHC (RBC) [Mass/Vol] 33.1 g/dL 32-36 [facility] No Panel InformationOrdered By: Aidan Argueta on 04-28-2023 Estimated GFR (MDRD) Amer 125 mL/min >60 [facility] Comment on above: GFR Calc Estimated GFR (MDRD) Non-Af Amer 103 mL/min >60 [facility] Comment on above: Non- GFR Calc Parathyroid Hormone (Intact) 40.2 pg/mL 18.4-80.1 [facility] Thyroid Stimulating Hormone (TSH) 0.74 uIU/mL 0.358-3.74 [facility] Vitamin D 25-Hydroxy 38.3 ng/mL [facility] Comment on above: Vitamin D 25(OH) Sta tus Range Deficiency <20 ng/mL (50nmol/L) Insufficiency 20 - 30 ng/mL (50 - 75 nmol/L) Sufficiency 30 - 100 ng/mL (75 - 250 nmol/L) Toxicity >100 ng/mL (>250 nmol/L) Platelets bldOrdered By: Todd Argueta on 04-28-2023 Platelets (Bld) [#/Vol] 245 10*3/uL 150-450 [facility] Serum or plasma albumin winsome urement (mass/volume)Ordered By: Aidan Argueta on 04-28-2023 Albumin [Mass/Vol] 3.8 g/dL 3.2-5.0 [facility] Serum or plasma albumin/glob ulin mass ratioOrdered By: Aidan Argueta on 04-28-2023 Albumin/Globulin [Mass ratio] 1.0 {ratio} 0.9-2.4 [facility] Serum or plasma calcium winsome urement (mass/volume)Ordered By: Aidan Argueta on 04-28-2023 Calcium [Mass/Vol] 9.9 mg/dL 8.5-10.1 [facility] Serum or plasma cholesterol in HDL measurement (mass/volume)Ordered By: Aidan Argueta on 04-28-2023 Cholesterol in HDL [Mass/Vol] 46 mg/dL >40 [facility] Comment on above: The drugs N-Acetylcy steine and Metamizole may falsely depress this assay. Reference Range HDL <40 mg/dL Low HDL Cholesterol HDL >or= 60 mg/dL High HDL Cholesterol Serum or plasma cholesterol in VLDL measurement (mass/volume)Ordered By: Aidan Argueta on 04-28-2023 Cholesterol in VLDL [Mass/Vol] 12 mg/dL 5-40 [facility] Serum or plasma creatinine m easurement (mass/volume)Ordered By: Aidan Argueta on 04-28-2023 Creatinine [Mass/Vol] 0.78 mg/dL 0.70-1.30 [facility] Comment on above: The validity of the calculated GFR & GFRAA in patients over 70 years has not been determined. Clinical correlation is essential. Serum or plasma low density lipoprotein (LDL) cholesterol measurement (mass/volume)Ordered By: Aidan Argueta on 04-28-2023 Cholesterol in LDL [Mass/Vol] 59 mg/dL 0-130 [facility] Serum or plasma urea nitroge n measurement (mass/volume)Ordered By: Aidan Argueta on 04-28-2023 Urea nitrogen [Mass/Vol] 20 mg/dL 7-18 [facility] Thin prep Papanicolaou smear with manual screeningOrdered By: Aidan Argueta on 04-28-2023 Thin prep Papanicolaou smear with manual screening 15 U/L 15-37 [facility] Thin prep Papanicolaou smear with manual screening 5 5-15 [facility] Whole blood hemoglobin A1c/t otal hemoglobin ratio (mass fraction)Ordered By: Aidan Argueta on 04-28-2023 HbA1c (Bld) [Mass fraction] 6.6 % 3.8-5.6 [facility] Comment on above: Normal < 5.7 % Predi abetic 5.7 - 6.4 % Diabetic >or= 6.5 % Please note range changes. Culture, urineOrdered By: Johanny Argueta on 03-10-2023 Bacteria identified Cx Nom (U) Klebsiella pneumoniae sp pneum [facility] Culture, urineOrdered By: Annia Umaña on 03-01-2023 Bacteria identified Cx Nom (U) Klebsiella pneumoniae sp pneum [facility] Absolute lymphocyte countOrd ered By: Aidan Argueta on 01-26-2023 Lymphocytes Auto (Unsp spec) [#/Vol] 1.61 10*3/uL 0.83-4.51 [facility] Basophil percentageOrdered B y: Aidan Argueta on 01-26-2023 Basophils/100 WBC (Bld) 0.8 % 0-1 [facility] Bilirubin [Mass/Vol] 0.40 mg/dL 0.20-1.00 [facility] Comment on above: For patients on eltr ombopag therapy, use of Dimension [place] TBIL is not recommended. Chloride [Moles/Vol] 105 mmol/L 98-107 [facility] Cholesterol [Mass/Vol] 126 mg/dL <200 [facility] Comment on above: <200 mg/dL Desirable 200-240 mg/dL Borderline >240 mg/dL High Risk Eosinophils/100 WBC (Bld) 4.5 % 0-5 [facility] Glucose [Mass/Vol] 112 mg/dL 74-106 [facility] Comment on above: Fasting Glucose resu lt from 100 to 125 mg/dL suggests IMPAIRED HOMEOSTASIS per A.D.A. criteria. Neutrophils (Bld) [#/Vol] 4.9 10*3/uL 2.0-7.7 [facility] Neutrophils/100 WBC (Bld) 64.2 % 47-70 [facility] Potassium [Moles/Vol] 4.3 mmol/L 3.5-5.1 [facility] Protein [Mass/Vol] 7.6 g/dL 6.4-8.2 [facility] Sodium [Moles/Vol] 136 mmol/L 136-145 [facility] Triglyceride [Mass/Vol] 67 mg/dL <199 [facility] Comment on above: The drugs N-Acetylcy steine and Metamizole may falsely depress this assay.Serum Triglycerides Reference Interval Normal <150 mg/dL Borderline high 150 - 199 mg/dL High 200 - 499 mg/dL Very High > or = 500 mg/dL WBC (Bld) [#/Vol] 7.6 10*3/uL 4.4-11.0 [facility] Blood erythrocytes count (nu mber/volume)Ordered By: Aidan Argueta on 01-26-2023 RBC (Bld) [#/Vol] 4.81 10*6/uL 4.6-6.2 [facility] Blood hemoglobin measurement (mass/volume)Ordered By: Aidan Argueta on 01-26-2023 Hemoglobin (Bld) [Mass/Vol] 13.8 g/dL 13.0-16.5 [facility] Blood lymphocytes/100 leukoc ytesOrdered By: Aidan Argueta on 01-26-2023 Lymphocytes/100 WBC (Bld) 21.3 % 19-41 [facility] Blood monocytes/100 leukocyt esOrdered By: Aidan Argueta on 01-26-2023 Monocytes/100 WBC (Bld) 8.9 % 0-10 [facility] Blood platelet mean volumeOr dered By: Aidan Argueta on 01-26-2023 Platelet mean volume (Bld) [Entitic vol] 10.1 fL 6.2-12.0 [facility] Determination of erythrocyte mean corpuscular volume (MCV)Ordered By: Aidan Argueta on 01-26-2023 MCV (RBC) [Entitic vol] 88.4 fL 80-94 [facility] Hematocrit Auto (Bld) [Volum e fraction]Ordered By: Aidan Argueta on 01-26-2023 Hematocrit (Bld) [Volume fraction] 42.5 % 40-54 [facility] Iron measurement (mass/mass) Ordered By: Aidan Argueta on 01-26-2023 Iron (Unsp spec) [Mass/Mass] 96 ug/dL 65-175 [facility] Laboratory - Chemistry and C hemistry - challengeOrdered By: Aidan Argueta on 01-26-2023 ALP [Catalytic activity/Vol] 97 U/L 45-117 [facility] ALT [Catalytic activity/Vol] 30 U/L 16-61 [facility] CO2 [Moles/Vol] 24.0 mmol/L 21.0-32.0 [facility] Cobalamin (Vitamin B12) [Mass/Vol] 499 pg/mL 211-911 [facility] Globulin (S) [Mass/Vol] 3.9 g/dL 2.2-4.2 [facility] Urea nitrogen/Creatinine [Mass ratio] 29.0 mg/mg 10-20 [facility] Laboratory - Hematology and Cell countsOrdered By: Aidan Argueta on 01-26-2023 Erythrocyte distribution width (RBC) [Entitic vol] 48.5 fL 35.1-43.9 [facility] Erythrocyte distribution width (RBC) [Ratio] 14.9 % 11.6-14.6 [facility] Immature granulocytes/100 WBC (Bld) 0.300 % 0.0-0.9 [facility] Comment on above: IG% - Immature Granu locytes (promyelocytes, myelocytes and metamyelocytes) > 1% indicates that a LEFT SHIFT is Present. MCH (RBC) [Entitic mass] 28.7 pg 27.0-32.0 [facility] Nucleated RBC/100 WBC (Bld) [Ratio] 0 % 0-5 [facility] MCHC Auto (RBC) [Mass/Vol]Or dered By: Aidan Argueta on 01-26-2023 MCHC (RBC) [Mass/Vol] 32.5 g/dL 32-36 [facility] No Panel InformationOrdered By: Aidan Argueta on 01-26-2023 Estimated GFR (MDRD) Amer 130 mL/min >60 [facility] Comment on above: GFR Calc Estimated GFR (MDRD) Non-Af Amer 107 mL/min >60 [facility] Comment on above: Non- GFR Calc Parathyroid Hormone (Intact) 35.3 pg/mL 18.4-80.1 [facility] Total Iron Binding Capacity 356 ug/dL 250-450 [facility] Vitamin D 25-Hydroxy 33.8 ng/mL [facility] Comment on above: Vitamin D 25(OH) Sta tus Range Deficiency <20 ng/mL (50nmol/L) Insufficiency 20 - 30 ng/mL (50 - 75 nmol/L) Sufficiency 30 - 100 ng/mL (75 - 250 nmol/L) Toxicity >100 ng/mL (>250 nmol/L) Platelets bldOrdered By: Todd Argueta on 01-26-2023 Platelets (Bld) [#/Vol] 268 10*3/uL 150-450 [facility] Serum or plasma albumin winsome urement (mass/volume)Ordered By: Aidan Argueta on 01-26-2023 Albumin [Mass/Vol] 3.7 g/dL 3.2-5.0 [facility] Serum or plasma albumin/glob ulin mass ratioOrdered By: Aidan Argueta on 01-26-2023 Albumin/Globulin [Mass ratio] 0.9 {ratio} 0.9-2.4 [facility] Serum or plasma calcium winsome urement (mass/volume)Ordered By: Aidan Argueta on 01-26-2023 Calcium [Mass/Vol] 10.4 mg/dL 8.5-10.1 [facility] Serum or plasma cholesterol in HDL measurement (mass/volume)Ordered By: Aidan Argueta on 01-26-2023 Cholesterol in HDL [Mass/Vol] 45 mg/dL >40 [facility] Comment on above: The drugs N-Acetylcy steine and Metamizole may falsely depress this assay. Reference Range HDL <40 mg/dL Low HDL Cholesterol HDL >or= 60 mg/dL High HDL Cholesterol Serum or plasma cholesterol in VLDL measurement (mass/volume)Ordered By: Aidan Argueta on 01-26-2023 Cholesterol in VLDL [Mass/Vol] 13 mg/dL 5-40 [facility] Serum or plasma creatinine m easurement (mass/volume)Ordered By: Aidan Argueta on 01-26-2023 Creatinine [Mass/Vol] 0.76 mg/dL 0.70-1.30 [facility] Comment on above: The validity of the calculated GFR & GFRAA in patients over 70 years has not been determined. Clinical correlation is essential. Serum or plasma ferritin jose surement (mass/volume)Ordered By: Aidan Argueta on 01-26-2023 Ferritin [Mass/Vol] 25 ng/mL 26-388 [facility] Serum or plasma folate measu rement (mass/volume)Ordered By: Aidan Argueta on 01-26-2023 Folate [Mass/Vol] 31.00 ng/mL 3.1-55.4 [facility] Serum or plasma low density lipoprotein (LDL) cholesterol measurement (mass/volume)Ordered By: Aidan Argueta on 01-26-2023 Cholesterol in LDL [Mass/Vol] 68 mg/dL 0-130 [facility] Serum or plasma urea nitroge n measurement (mass/volume)Ordered By: Aidan Argueta on 01-26-2023 Urea nitrogen [Mass/Vol] 22 mg/dL 7-18 [facility] Thin prep Papanicolaou smear with manual screeningOrdered By: Aidan Argueta on 01-26-2023 Thin prep Papanicolaou smear with manual screening 18 U/L 15-37 [facility] Thin prep Papanicolaou smear with manual screening 7 5-15 [facility] Whole blood hemoglobin A1c/t otal hemoglobin ratio (mass fraction)Ordered By: Aidan Argueta on 01-26-2023 HbA1c (Bld) [Mass fraction] 7.0 % 3.8-5.6 [facility] Comment on above: Normal < 5.7 % Predi abetic 5.7 - 6.4 % Diabetic >or= 6.5 % Please note range changes. Absolute lymphocyte countOrd ered By: Dr. Argueta on 11-01-2022 Lymphocytes Auto (Unsp spec) [#/Vol] 0.99 10*3/uL 0.83-4.51 [facility] Basophil percentageOrdered B y: Dr. Argueta on 11-01-2022 Basophils/100 WBC (Bld) 0.7 % 0-1 [facility] Bilirubin [Mass/Vol] 0.20 mg/dL 0.20-1.00 [facility] Comment on above: For patients on eltr ombopag therapy, use of Dimension [place] TBIL is not recommended. Chloride [Moles/Vol] 105 mmol/L 98-107 [facility] Cholesterol [Mass/Vol] 136 mg/dL <200 [facility] Comment on above: <200 mg/dL Desirable 200-240 mg/dL Borderline >240 mg/dL High Risk Eosinophils/100 WBC (Bld) 2.1 % 0-5 [facility] Glucose [Mass/Vol] 196 mg/dL 74-106 [facility] Comment on above: Fasting Glucose resu lt greater than or equal to 126 mg/dL suggests DIABETES MELLITUS per A.D.A. criteria. Neutrophils (Bld) [#/Vol] 5.5 10*3/uL 2.0-7.7 [facility] Neutrophils/100 WBC (Bld) 76.2 % 47-70 [facility] Potassium [Moles/Vol] 4.1 mmol/L 3.5-5.1 [facility] Protein [Mass/Vol] 7.4 g/dL 6.4-8.2 [facility] Sodium [Moles/Vol] 136 mmol/L 136-145 [facility] Triglyceride [Mass/Vol] 95 mg/dL <199 [facility] Comment on above: The drugs N-Acetylcy steine and Metamizole may falsely depress this assay.Serum Triglycerides Reference Interval Normal <150 mg/dL Borderline high 150 - 199 mg/dL High 200 - 499 mg/dL Very High > or = 500 mg/dL WBC (Bld) [#/Vol] 7.3 10*3/uL 4.4-11.0 [facility] Blood erythrocytes count (nu mber/volume)Ordered By: Dr. Argueta on 11-01-2022 RBC (Bld) [#/Vol] 4.50 10*6/uL 4.6-6.2 [facility] Blood hemoglobin measurement (mass/volume)Ordered By: Dr. Argueta on 11-01-2022 Hemoglobin (Bld) [Mass/Vol] 12.9 g/dL 13.0-16.5 [facility] Blood lymphocytes/100 leukoc ytesOrdered By: Dr. Argueta on 11-01-2022 Lymphocytes/100 WBC (Bld) 13.7 % 19-41 [facility] Blood monocytes/100 leukocyt esOrdered By: Dr. Argueta on 11-01-2022 Monocytes/100 WBC (Bld) 7.0 % 0-10 [facility] Blood platelet mean volumeOr dered By: Dr. Argueta on 11-01-2022 Platelet mean volume (Bld) [Entitic vol] 10.5 fL 6.2-12.0 [facility] Determination of erythrocyte mean corpuscular volume (MCV)Ordered By: Dr. Argueta on 11-01-2022 MCV (RBC) [Entitic vol] 89.3 fL 80-94 [facility] Hematocrit Auto (Bld) [Volum e fraction]Ordered By: Dr. rAgueta on 11-01-2022 Hematocrit (Bld) [Volume fraction] 40.2 % 40-54 [facility] Iron measurement (mass/mass) Ordered By: Dr. Argueta on 11-01-2022 Iron (Unsp spec) [Mass/Mass] 40 ug/dL 65-175 [facility] Laboratory - Chemistry and C hemistry - challengeOrdered By: Dr. Argueta on 11-01-2022 ALP [Catalytic activity/Vol] 92 U/L 45-117 [facility] ALT [Catalytic activity/Vol] 32 U/L 16-61 [facility] CO2 [Moles/Vol] 25.0 mmol/L 21.0-32.0 [facility] Cobalamin (Vitamin B12) [Mass/Vol] 564 pg/mL 211-911 [facility] Globulin (S) [Mass/Vol] 3.8 g/dL 2.2-4.2 [facility] Urea nitrogen/Creatinine [Mass ratio] 22.4 mg/mg 10-20 [facility] Laboratory - Hematology and Cell countsOrdered By: Dr. Argueta on 11-01-2022 Erythrocyte distribution width (RBC) [Entitic vol] 44.5 fL 35.1-43.9 [facility] Erythrocyte distribution width (RBC) [Ratio] 13.7 % 11.6-14.6 [facility] Immature granulocytes/100 WBC (Bld) 0.300 % 0.0-0.9 [facility] Comment on above: IG% - Immature Granu locytes (promyelocytes, myelocytes and metamyelocytes) > 1% indicates that a LEFT SHIFT is Present. MCH (RBC) [Entitic mass] 28.7 pg 27.0-32.0 [facility] Nucleated RBC/100 WBC (Bld) [Ratio] 0 % 0-5 [facility] MCHC Auto (RBC) [Mass/Vol]Or dered By: Dr. Argueta on 11-01-2022 MCHC (RBC) [Mass/Vol] 32.1 g/dL 32-36 [facility] No Panel InformationOrdered By: Dr. Argueta on 11-01-2022 Estimated GFR (MDRD) Amer 107 mL/min >60 [facility] Comment on above: GFR Calc Estimated GFR (MDRD) Non-Af Amer 89 mL/min >60 [facility] Comment on above: Non- GFR Calc Total Iron Binding Capacity 409 ug/dL 250-450 [facility] Vitamin D 25-Hydroxy 35.2 ng/mL [facility] Comment on above: Vitamin D 25(OH) Sta tus Range Deficiency <20 ng/mL (50nmol/L) Insufficiency 20 - 30 ng/mL (50 - 75 nmol/L) Sufficiency 30 - 100 ng/mL (75 - 250 nmol/L) Toxicity >100 ng/mL (>250 nmol/L) Platelets bldOrdered By: Dr. Argueta on 11-01-2022 Platelets (Bld) [#/Vol] 274 10*3/uL 150-450 [facility] Serum or plasma albumin winsome urement (mass/volume)Ordered By: Dr. Argueta on 11-01-2022 Albumin [Mass/Vol] 3.6 g/dL 3.2-5.0 [facility] Serum or plasma albumin/glob ulin mass ratioOrdered By: Dr. Argueta on 11-01-2022 Albumin/Globulin [Mass ratio] 0.9 {ratio} 0.9-2.4 [facility] Serum or plasma calcium winsome urement (mass/volume)Ordered By: Dr. Argueta on 11-01-2022 Calcium [Mass/Vol] 9.6 mg/dL 8.5-10.1 [facility] Serum or plasma cholesterol in HDL measurement (mass/volume)Ordered By: Dr. Argueta on 11-01-2022 Cholesterol in HDL [Mass/Vol] 46 mg/dL >40 [facility] Comment on above: The drugs N-Acetylcy steine and Metamizole may falsely depress this assay. Reference Range HDL <40 mg/dL Low HDL Cholesterol HDL >or= 60 mg/dL High HDL Cholesterol Serum or plasma cholesterol in VLDL measurement (mass/volume)Ordered By: Dr. Argueta on 11-01-2022 Cholesterol in VLDL [Mass/Vol] 19 mg/dL 5-40 [facility] Serum or plasma creatinine m easurement (mass/volume)Ordered By: Dr. Argueta on 11-01-2022 Creatinine [Mass/Vol] 0.89 mg/dL 0.70-1.30 [facility] Comment on above: The validity of the calculated GFR & GFRAA in patients over 70 years has not been determined. Clinical correlation is essential. Serum or plasma ferritin jose surement (mass/volume)Ordered By: Dr. Argueta on 11-01-2022 Ferritin [Mass/Vol] 14 ng/mL 26-388 [facility] Serum or plasma iron saturat ion measurement (mass fraction)Ordered By: Dr. Argueta on 11-01-2022 Iron saturation [Mass fraction] 9.8 % 15.0-55.0 [facility] Serum or plasma low density lipoprotein (LDL) cholesterol measurement (mass/volume)Ordered By: Dr. Argueta on 11-01-2022 Cholesterol in LDL [Mass/Vol] 71 mg/dL 0-130 [facility] Serum or plasma urea nitroge n measurement (mass/volume)Ordered By: Dr. Argueta on 11-01-2022 Urea nitrogen [Mass/Vol] 20 mg/dL 7-18 [facility] Thin prep Papanicolaou smear with manual screeningOrdered By: Dr. Argueta on 11-01-2022 Thin prep Papanicolaou smear with manual screening 14 U/L 15-37 [facility] Thin prep Papanicolaou smear with manual screening 6 5-15 [facility] Whole blood hemoglobin A1c/t otal hemoglobin ratio (mass fraction)Ordered By: Dr. Argueta on 11-01-2022 HbA1c (Bld) [Mass fraction] 7.1 % 3.8-5.6 [facility] Comment on above: Normal < 5.7 % Predi abetic 5.7 - 6.4 % Diabetic >or= 6.5 % Please note range changes. Absolute lymphocyte countOrd ered By: Dr. Argueta on 09-22-2022 Lymphocytes Auto (Unsp spec) [#/Vol] 1.41 10*3/uL 0.83-4.51 [facility] Basophil percentageOrdered B y: Dr. Argueta on 09-22-2022 Basophils/100 WBC (Bld) 1.1 % 0-1 [facility] Bilirubin [Mass/Vol] 0.30 mg/dL 0.20-1.00 [facility] Comment on above: For patients on eltr ombopag therapy, use of Dimension [place] TBIL is not recommended. Chloride [Moles/Vol] 103 mmol/L 98-107 [facility] Cholesterol [Mass/Vol] 138 mg/dL <200 [facility] Comment on above: <200 mg/dL Desirable 200-240 mg/dL Borderline >240 mg/dL High Risk Eosinophils/100 WBC (Bld) 3.3 % 0-5 [facility] Glucose [Mass/Vol] 198 mg/dL 74-106 [facility] Comment on above: Fasting Glucose resu lt greater than or equal to 126 mg/dL suggests DIABETES MELLITUS per A.D.A. criteria. Neutrophils (Bld) [#/Vol] 5.4 10*3/uL 2.0-7.7 [facility] Neutrophils/100 WBC (Bld) 70.4 % 47-70 [facility] Potassium [Moles/Vol] 4.6 mmol/L 3.5-5.1 [facility] Protein [Mass/Vol] 7.2 g/dL 6.4-8.2 [facility] Sodium [Moles/Vol] 138 mmol/L 136-145 [facility] Triglyceride [Mass/Vol] 118 mg/dL <199 [facility] Comment on above: The drugs N-Acetylcy steine and Metamizole may falsely depress this assay.Serum Triglycerides Reference Interval Normal <150 mg/dL Borderline high 150 - 199 mg/dL High 200 - 499 mg/dL Very High > or = 500 mg/dL WBC (Bld) [#/Vol] 7.6 10*3/uL 4.4-11.0 [facility] Blood erythrocytes count (nu mber/volume)Ordered By: Dr. Argueta on 09-22-2022 RBC (Bld) [#/Vol] 4.88 10*6/uL 4.6-6.2 [facility] Blood hemoglobin measurement (mass/volume)Ordered By: Dr. Argueta on 09-22-2022 Hemoglobin (Bld) [Mass/Vol] 14.3 g/dL 13.0-16.5 [facility] Blood lymphocytes/100 leukoc ytesOrdered By: Dr. Argueta on 09-22-2022 Lymphocytes/100 WBC (Bld) 18.6 % 19-41 [facility] Blood monocytes/100 leukocyt esOrdered By: Dr. Argueta on 09-22-2022 Monocytes/100 WBC (Bld) 6.3 % 0-10 [facility] Blood platelet mean volumeOr dered By: Dr. Argueta on 09-22-2022 Platelet mean volume (Bld) [Entitic vol] 10.2 fL 6.2-12.0 [facility] Determination of erythrocyte mean corpuscular volume (MCV)Ordered By: Dr. Argueta on 09-22-2022 MCV (RBC) [Entitic vol] 88.7 fL 80-94 [facility] Hematocrit Auto (Bld) [Volum e fraction]Ordered By: Dr. Argueta on 09-22-2022 Hematocrit (Bld) [Volume fraction] 43.3 % 40-54 [facility] Laboratory - Chemistry and C hemistry - challengeOrdered By: Dr. Argueta on 09-22-2022 ALP [Catalytic activity/Vol] 94 U/L 45-117 [facility] ALT [Catalytic activity/Vol] 32 U/L 16-61 [facility] CO2 [Moles/Vol] 27.0 mmol/L 21.0-32.0 [facility] Cobalamin (Vitamin B12) [Mass/Vol] 682 pg/mL 211-911 [facility] Globulin (S) [Mass/Vol] 3.5 g/dL 2.2-4.2 [facility] Magnesium [Mass/Vol] 1.9 mg/dL 1.6-2.6 [facility] Urea nitrogen/Creatinine [Mass ratio] 28.4 mg/mg 10-20 [facility] Laboratory - Hematology and Cell countsOrdered By: Dr. Argueta on 09-22-2022 Erythrocyte distribution width (RBC) [Entitic vol] 45.3 fL 35.1-43.9 [facility] Erythrocyte distribution width (RBC) [Ratio] 14.1 % 11.6-14.6 [facility] Immature granulocytes/100 WBC (Bld) 0.300 % 0.0-0.9 [facility] Comment on above: IG% - Immature Granu locytes (promyelocytes, myelocytes and metamyelocytes) > 1% indicates that a LEFT SHIFT is Present. MCH (RBC) [Entitic mass] 29.3 pg 27.0-32.0 [facility] Nucleated RBC/100 WBC (Bld) [Ratio] 0 % 0-5 [facility] MCHC Auto (RBC) [Mass/Vol]Or dered By: Dr. Argueta on 09-22-2022 MCHC (RBC) [Mass/Vol] 33.0 g/dL 32-36 [facility] No Panel InformationOrdered By: Dr. Argueta on 09-22-2022 Estimated GFR (MDRD) Amer 104 mL/min >60 [facility] Comment on above: GFR Calc Estimated GFR (MDRD) Non-Af Amer 86 mL/min >60 [facility] Comment on above: Non- GFR Calc Thyroid Stimulating Hormone (TSH) 0.53 uIU/mL 0.358-3.74 [facility] Urine Microalbumin/Creatinine Ratio 13.3 mg/g CRE <30 [facility] Vitamin B6 Level 13.7 ug/L 3.4-65.2 [facility] Comment on above: Deficiency: <3.4 Mar ginal: 3.4 - 5.1 Adequate: >5.1 Vitamin D 25-Hydroxy 32.2 ng/mL [facility] Comment on above: Vitamin D 25(OH) Sta tus Range Deficiency <20 ng/mL (50nmol/L) Insufficiency 20 - 30 ng/mL (50 - 75 nmol/L) Sufficiency 30 - 100 ng/mL (75 - 250 nmol/L) Toxicity >100 ng/mL (>250 nmol/L) Whole Blood Vitamin B1 Level 149.0 nmol/L 66.5-200.0 [facility] Comment on above: Performed at: [place] [id number] Director: Emiliana Maguire MD, Phone: [phone] Platelets bldOrdered By: Dr. Argueta on 09-22-2022 Platelets (Bld) [#/Vol] 278 10*3/uL 150-450 [facility] Serum or plasma albumin winsome urement (mass/volume)Ordered By: Dr. Argueta on 09-22-2022 Albumin [Mass/Vol] 3.7 g/dL 3.2-5.0 [facility] Serum or plasma albumin/glob ulin mass ratioOrdered By: Dr. Argueta on 09-22-2022 Albumin/Globulin [Mass ratio] 1.1 {ratio} 0.9-2.4 [facility] Serum or plasma calcium winsome urement (mass/volume)Ordered By: Dr. Argueta on 09-22-2022 Calcium [Mass/Vol] 9.9 mg/dL 8.5-10.1 [facility] Serum or plasma cholesterol in HDL measurement (mass/volume)Ordered By: Dr. Argueta on 09-22-2022 Cholesterol in HDL [Mass/Vol] 52 mg/dL >40 [facility] Comment on above: The drugs N-Acetylcy steine and Metamizole may falsely depress this assay. Reference Range HDL <40 mg/dL Low HDL Cholesterol HDL >or= 60 mg/dL High HDL Cholesterol Serum or plasma cholesterol in VLDL measurement (mass/volume)Ordered By: Dr. Argueta on 09-22-2022 Cholesterol in VLDL [Mass/Vol] 24 mg/dL 5-40 [facility] Serum or plasma creatinine m easurement (mass/volume)Ordered By: Dr. Argueta on 09-22-2022 Creatinine [Mass/Vol] 0.92 mg/dL 0.70-1.30 [facility] Comment on above: The validity of the calculated GFR & GFRAA in patients over 70 years has not been determined. Clinical correlation is essential. Serum or plasma low density lipoprotein (LDL) cholesterol measurement (mass/volume)Ordered By: Dr. Argueta on 09-22-2022 Cholesterol in LDL [Mass/Vol] 62 mg/dL 0-130 [facility] Serum or plasma urea nitroge n measurement (mass/volume)Ordered By: Dr. Argueta on 09-22-2022 Urea nitrogen [Mass/Vol] 26 mg/dL 7-18 [facility] Thin prep Papanicolaou smear with manual screeningOrdered By: Dr. Argueta on 09-22-2022 Thin prep Papanicolaou smear with manual screening 12 U/L 15-37 [facility] Thin prep Papanicolaou smear with manual screening 8 5-15 [facility] Thin prep Papanicolaou smear with manual screening 14.6 mg/L NO RANGE EST. [facility] Urine creatinine measurement (mass/volume)Ordered By: Dr. Argueta on 09-22-2022 Creatinine (U) [Mass/Vol] 110.00 mg/dL NO RANGE EST. [facility] Whole blood hemoglobin A1c/t otal hemoglobin ratio (mass fraction)Ordered By: Dr. Argueta on 09-22-2022 HbA1c (Bld) [Mass fraction] 7.7 % 3.8-5.6 [facility] Comment on above: Normal < 5.7 % Predi abetic 5.7 - 6.4 % Diabetic >or= 6.5 % Please note range changes. MR LUMBAR SP WO CONTRASTon 0 09-16-2022 MR LUMBAR SP WO CONTRAST [place] [address] Patient: AVERY VASQUEZ Phone#: : [phone] Age: 72 Gender: M Pt. Type: Out Account: [id number] Location: Ordering: KAMERON SAHA Exam Date: 09/16/2022/7:40 Family Phys: Charge Code: [id number] Physician: Dawson Order #: [id number] Dose#: PROCEDURE: MRI LUMBAR SPINE WITHOUT CONTRAST COMPARISON: None. INDICATIONS: Low back pain TECHNIQUE: A variety of imaging planes and parameters were utilized for visualization of suspected pathology. FINDINGS: PARASPINAL AREA: Normal with no visible mass. BONES: Vertebral bodies are maintained in height and alignment. There is normal marrow signal. There is straightening of the normal lumbar lordosis. CORD/CAUDA EQUINA: Conus terminates at L1 LUMBAR DISC LEVELS: L1-L2: Disc height loss and circumferential disc bulge contributes to moderate bilateral foraminal narrowing and mild spinal canal narrowing. L2-L3: Circumferential disc bulge, disc height loss and facet arthropathy contributes to moderate- severe bilateral foraminal narrowing and severe spinal canal narrowing. L3-L4: Disc height loss, circumferential disc bulge and facet arthropathy contributes to moderate- severe right, severe left foraminal narrowing and moderate-severe spinal canal narrowing. L4-L5: Disc height loss, circumferential disc bulge and ligamentum flavum hypertrophy contributes to moderate-severe bilateral foraminal narrowing and severe spinal canal narrowing. L5-S1: Disc height loss, posterior disc osteophyte complex, circumferential disc bulge and facet arthropathy contributes to severe right and moderate-severe left foraminal narrowing and moderate spinal canal narrowing. CONCLUSION: 1. Multilevel degenerative disc disease. Moderate to severe foraminal narrowing at all levels of the lumbar spine. Moderate to severe spinal canal narrowing from L2-3 through L5-S1. Dictated by: Lena Connelly MD on 09/16/2022 at 15:59 Approved by: Lena Connelly MD on 09/16/2022 at 16:08 [facility] HEALTHon 06-25-2022 ALLIED [facility] HNO ID: [id number] Author: RT Rodrigo(Immanuel) Service: ? Author Type: Class A Truck Driver Type: Allied Health Filed: 06/25/2022 8:11 AM Note Text: Radiology Service Progress Note PATIENT NAME: Avery Vasquez DATE OF SERVICE: June 25, 2022 TIME: 8:10 AM PATIENT IDENTITY VERIFICATION COMPLETED USING TWO (2) IDENTIFIERS: Name and Date of confirmed by patient verbally. FALL SCREENING: Has the patient had 2 falls in the last year or 1 fall with injury or currently using an Ambulatory Assistive Device (Walker, Cane, Wheelchair, Crutches, etc.)? No PATIENT GENDER DATA: Male PATIENT RELEVANT IMPLANT DATA REVIEWED: Not Applicable RADIOLOGY DEPARTMENT: General X-ray: Exam(s) Completed: Upper Extremity X-Ray(s): Shoulder, AP / TRUE AP / AXILLARY left PERIPHERAL IV DATA: Not applicable SIGNED BY: RT Rodrigo(R) June 25, 2022 8:10 AM [facility] CNOVon 06-25-2022 CNOV Office Visit (ORMDRG ) -- AVERY VASQUEZ ([id number]) 1950 M Date Time Provider Department 06/25/22 8:15 AM BERT ORTIZ ORMDRG During your visit today, we recorded the following information about you: Weight Height 108.9 kg 1.727 m Cidny Sheridan PA-C 06/25/2022 8:50 AM Signed Cindy Sheridan PA-C Department of Orthopaedics June 25, 2022 SURGERY: Left reverse total shoulder arthroplasty CHIEF COMPLAINT: Established Patient, Follow Up, and Post Op of the Left Shoulder. SUBJECTIVE: Mr Vasquez returns to clinic today now 3-month status post left reverse total shoulder arthroplasty performed on 03/19/2022. Denies any pain in the shoulder. Has completed formal physical therapy. No clicking or clunking. Exam: Examination of left shoulder reveals well-healed anterior incision. No erythema or drainage. Active forward elevation to 120, ER 0, IR side pocket. Lateral deltoid sensation intact. Appropriate deltoid activation. Imaging: I did order and interpret radiographs today, 3 view left shoulder. Left reverse total shoulder arthroplasty intact without evidence of mechanical loosening or periprosthetic fracture. ASSESSMENT: 3-month status post left reverse total shoulder arthroplasty SUMMARY/PLAN: Mr Vasquez is doing well. He can continue advance his activities as he tolerates. We discussed predental antibiotics. He will follow-up on an as-needed basis. Cindy Sheridan PA-C Referring Provider: BERT ORTIZ [[id number]] Allergies As of Date: 06/25/2022 Noted Allergy Reaction BACTRIM (SULFAMETHOXAZOLE-TRIMETH* 12/16/2017 2 - Rash TRAMADOL 12/16/2017 16 - Unknown VICODIN (HYDROCODONE-ACETAMINOPHE* 12/16/2017 5 - Intolerance Date Reviewed: 06/25/2022 Reviewed by: Cindy Sheridan PA-C - Fully Assessed Reason for Visit: Established Patient [175] Follow Up [171] Post Op [174] Primary Visit Diagnosis:S/P reverse total shoulder arthroplasty, left [Z96.612] Prescriptions as of 06/25/2022 - docusate sodium (COLACE) 100 mg capsule Take 1 capsule by mouth twice daily. - ondansetron (ZOFRAN) 4 mg tablet Take 1 tablet by mouth every 8 hours as needed. - glimepiride (AMARYL) 2 mg tablet Take 1 tablet by mouth once daily. - CALCIUM ORAL Take 1 tablet by mouth once daily. - multivitamin tablet Take 1 tablet by mouth once daily. - metFORMIN ER (GLUMETZA) 500 mg 24 hr tablet Take 1,000 mg by mouth twice daily. - lisinopril (ZESTRIL, PRINIVIL) 10 mg tablet Take 10 mg by mouth once daily. - atorvastatin (LIPITOR) 10 mg tablet Take 10 mg by mouth once daily. - aspirin, enteric coated (ASPIRIN, ENTERIC COATED) 81 mg EC tablet Take 81 mg by mouth once daily. Problem List As Of Date 06/25/2022 Noted Resolved Pneumomediastinum (HCC) [J98.2] 12/16/2017 03/05/2022 Trauma [T14.90XA] 12/16/2017 12/18/2017 Obesity, Class II, BMI 35-39.9 E66.9 [E66.9] 12/18/2017 Fracture three ribs-closed, right, initial enco*12/16/2017 03/05/2022 Primary osteoarthritis of left shoulder [M19.01*03/05/2022 Diabetes (HCC) [E11.9] Hypertension [I10] HLD (hyperlipidemia) [E78.5] Encounter Status:Closed by CINDY SHERIDAN on 06/25/22 Normal [facility] XR SHLDR >/=3V AP/TABITHA AP/OTH R LTon 06-25-2022 XR SHLDR >/=3V AP/TABITHA AP/OTHR LT * * *Final Report* * * DATE OF EXAM: Jun 25 2022 8:08AM JOSIANE 5252 - XR SHLDR >/=3V AP/TABITHA AP/OTHR LT / PROCEDURE REASON: multiple diagnoses * * * * Physician Interpretation * * * * PROCEDURE: Left shoulder INDICATION: Chronic left shoulder pain .post op eval TECHNIQUE: XR SHLDR >/=3V AP/TABITHA AP/OTHR LT COMPARISON: 05/07/2022 FINDINGS: Reverse shoulder arthroplasty remains in satisfactory position without evidence for loosening. Acromiohumeral space is maintained. The joint arthrosis. No fracture. IMPRESSION: Stable arthroplasty Gis Programmer: CARINA Transcribe Date/Time: Jun 25 2022 8:19A Dictated by : RANGEL MIMS MD This examination was interpreted and the report reviewed and electronically signed by: RANGEL MIMS MD on Jun 25 2022 8:20AM EST [id number] [facility] XR SHOULDER GENERAL 3V OR MO RE AP/TRUE AP/OTHER LEFTon 06-25-2022 [facility] CNOVon 05-07-2022 CNOV Office Visit (ORMDRG ) -- AVERY VASQUEZ ([id number]) 1950 M Date Time Provider Department 05/07/22 1:30 PM BERT ORTIZ ORMDRG During your visit today, we recorded the following information about you: Weight Height 108.9 kg 1.727 m Bert Ortiz MD 05/07/2022 2:32 PM Signed PAIN EVALUATION 05/07/2022 1344 Pain Level: 0 Pain Location: Shoulder-Left Comments: PT currently Avery Vasquez returns to follow-up 6 weeks following reverse arthroplasty. Pain has been improving steadily and range of motion also improving with light use at home and with physical therapy. On exam there is improvement in overhead and rotational range of motion. Pain is minimal throughout the exam today. There is no catching or grinding of the shoulder. There is no tenderness to palpation over the scapular spine or acromion. Active forward elevation is 100 and external rotation is 30. There is some difficulty with rotation behind the back. AP, outlet, axillary views of the shoulder reviewed in the office today demonstrate unchanged alignment of reverse arthroplasty components without evidence of fracture or any loosening of the implants. Today we discussed progress 6 weeks following surgery. Progress has been good in the shoulder may be used for all activities as tolerated within limits of pain. Recommended continuing physical therapy and return to see me again in 6 weeks with repeat x-rays and clinical exam. Bert Ortiz MD Shoulder AND Elbow Surgeon Department of Orthopaedic Surgery [facility] Referring Provider: VICKI DUMONT [[id number]] Allergies As of Date: 05/07/2022 Noted Allergy Reaction BACTRIM (SULFAMETHOXAZOLE-TRIMETH* 12/16/2017 2 - Rash TRAMADOL 12/16/2017 16 - Unknown VICODIN (HYDROCODONE-ACETAMINOPHE* 12/16/2017 5 - Intolerance Date Reviewed: 05/07/2022 Reviewed by: Radha Cao MA - Fully Assessed Reason for Visit: Established Patient [175] Follow Up [171] Post Op [174] Primary Visit Diagnosis:S/P reverse total shoulder arthroplasty, left [Z96.612] Prescriptions as of 05/07/2022 - docusate sodium (COLACE) 100 mg capsule Take 1 capsule by mouth twice daily. - ondansetron (ZOFRAN) 4 mg tablet Take 1 tablet by mouth every 8 hours as needed. - glimepiride (AMARYL) 2 mg tablet Take 1 tablet by mouth once daily. - CALCIUM ORAL Take 1 tablet by mouth once daily. - multivitamin tablet Take 1 tablet by mouth once daily. - metFORMIN ER (GLUMETZA) 500 mg 24 hr tablet Take 1,000 mg by mouth twice daily. - lisinopril (ZESTRIL, PRINIVIL) 10 mg tablet Take 10 mg by mouth once daily. - atorvastatin (LIPITOR) 10 mg tablet Take 10 mg by mouth once daily. - aspirin, enteric coated (ASPIRIN, ENTERIC COATED) 81 mg EC tablet Take 81 mg by mouth once daily. Problem List As Of Date 05/07/2022 Noted Resolved Pneumomediastinum (HCC) [J98.2] 12/16/2017 03/05/2022 Trauma [T14.90XA] 12/16/2017 12/18/2017 Obesity, Class II, BMI 35-39.9 E66.9 [E66.9] 12/18/2017 Fracture three ribs-closed, right, initial enco*12/16/2017 03/05/2022 Primary osteoarthritis of left shoulder [M19.01*03/05/2022 Diabetes (HCC) [E11.9] Hypertension [I10] HLD (hyperlipidemia) [E78.5] Encounter Status:Closed by BERT ORTIZ on 05/07/22 Normal [facility] XR SHLDR >/=3V AP/TABITHA AP/OTH R LTon 05-07-2022 XR SHLDR >/=3V AP/TABITHA AP/OTHR LT * * *Final Report* * * DATE OF EXAM: May 07 2022 1:33PM JOSIANE 5252 - XR SHLDR >/=3V AP/TABITHA AP/OTHR LT / PROCEDURE REASON: multiple diagnoses * * * * Physician Interpretation * * * * EXAM(s): XR SHLDR >/=3V AP/TABITHA AP/OTHR LT EXAM DATE/TIME: 05/07/2022 1:33 PM HISTORY: 72 years old Clinical information: Chronic left shoulder pain Chronic left shoulder pain follow up [place] [employer] View Axillary TECHNIQUE: Images: XR SHLDR >/=3V AP/TABITHA AP/OTHR LT Comparison: 04/02/2022. RESULT: Findings: The components of the ReverseLEFT shoulder arthroplasty are in good alignment with the respective bones and each other. There is no evidence of loosening of the components. Bone density appears well-preserved. No fractures or dislocations are seen. IMPRESSION: Stable Left total shoulder arthroplasty Gis Programmer: PSCB Transcribe Date/Time: May 07 2022 1:41P Dictated by : ESTRELLA KAUR DO This examination was interpreted and the report reviewed and electronically signed by: ESTRELLA KAUR DO on May 07 2022 1:42PM EST [id number] [facility] XR SHOULDER GENERAL 3V OR MO RE AP/TRUE AP/OTHER LEFTon 05-07-2022 [facility] ALLIED HEALTHon 04-02-2022 ALLIED HEALTH HNO ID: [id number] Author: RT Rodrigo(R) Service: ? Author Type: Class A Truck Driver Type: Allied Health Filed: 04/02/2022 1:55 PM Note Text: Radiology Service Progress Note PATIENT NAME: Avery Vasquez DATE OF SERVICE: April 02, 2022 TIME: 1:52 PM PATIENT IDENTITY VERIFICATION COMPLETED USING TWO (2) IDENTIFIERS: Name and Date of confirmed by patient verbally. FALL SCREENING: Has the patient had 2 falls in the last year or 1 fall with injury or currently using an Ambulatory Assistive Device (Walker, Cane, Wheelchair, Crutches, etc.)? No PATIENT GENDER DATA: Male PATIENT RELEVANT IMPLANT DATA REVIEWED: Not Applicable RADIOLOGY DEPARTMENT: General X-ray: Exam(s) Completed: Upper Extremity X-Ray(s): Shoulder, AP / TRUE AP / AXILLARY left PERIPHERAL IV DATA: Not applicable SIGNED BY: RT Rodrigo(Immanuel) April 02, 2022 1:52 PM [facility] 04-02-2022 [facility] Office Visit (ORMDRG ) -- AVERY VASQUEZ ([id number]) 1950 M Date Time Provider Department 04/02/22 1:45 PM BERT ORTIZ [facility] During your visit today, we recorded the following information about you: Bert Ortiz MD 04/07/2022 8:51 AM Signed PAIN EVALUATION 04/02/2022 1338 Pain Level: 0 Pain Location: Shoulder-Left Avery Vasquez comes in today for first postoperative visit following reverse total shoulder arthroplasty. Pain has been well controlled with medication. On exam the incision is healing with no surrounding erythema and no drainage. Sensation over the lateral deltoid is normal. There is a strong deltoid contraction to command. Range of motion testing today demonstrates mild discomfort with overhead and rotational testing appropriate for level of recovery. Radiographs taken of the shoulder today demonstrate expected position of reverse total shoulder arthroplasty components without any sign of component malalignment or breakage. There is no fracture. Today we discussed early progress following reverse total shoulder arthroplasty. The arm may be used for all activities as tolerated within limits of pain. Sling use is optional. Postoperative pain medication should be transitioned to a regimen of Tylenol and ibuprofen if possible. Return to see me in 4 weeks with repeat imaging of the shoulder at that time, sooner if problems arise. 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 - ondansetron (ZOFRAN) 4 mg tablet Take 1 tablet by mouth every 8 hours as needed. - glimepiride (AMARYL) 2 mg tablet Take 1 tablet by mouth once daily. - CALCIUM ORAL Take 1 tablet by mouth once daily. - multivitamin tablet Take 1 tablet by mouth once daily. - metFORMIN ER (GLUMETZA) 500 mg 24 hr tablet Take 1,000 mg by mouth twice daily. - lisinopril (ZESTRIL, PRINIVIL) 10 mg tablet Take 10 mg by mouth once daily. - atorvastatin (LIPITOR) 10 mg tablet Take 10 mg by mouth once daily. - aspirin, enteric coated (ASPIRIN, ENTERIC COATED) 81 mg EC tablet Take 81 mg by mouth once daily. Problem List As Of Date 04/02/2022 Noted Resolved Pneumomediastinum (HCC) [J98.2] 12/16/2017 03/05/2022 Trauma [T14.90XA] 12/16/2017 12/18/2017 Obesity, Class II, BMI 35-39.9 E66.9 [E66.9] 12/18/2017 Fracture three ribs-closed, right, initial enco*12/16/2017 03/05/2022 Primary osteoarthritis of left shoulder [M19.01*03/05/2022 Diabetes (HCC) [E11.9] Hypertension [I10] HLD (hyperlipidemia) [E78.5] Encounter Status:Closed by BERT ORTIZ on 04/07/22 Normal [facility] XR SHLDR >/=3V AP/TABITHA AP/OTH R LTon 04-02-2022 XR SHLDR >/=3V AP/TABITHA AP/OTHR LT * * *Final Report* * * DATE OF EXAM: Apr 02 2022 1:49PM JOSIANE 5252 - XR SHLDR >/=3V AP/TABITHA AP/OTHR LT / PROCEDURE REASON: M25.512-Left shoulder pain, unspecified chronicity * * * * Physician Interpretation * * * * EXAMINATION: XR SHLDR >/=3V AP/TABITHA AP/OTHR LT HISTORY: Left shoulder pain, unspecified chronicity. TECHNIQUE: XR SHLDR >/=3V AP/TABITHA AP/OTHR LT Laterality: LEFT Number of different views (projections): 3 M: XB_1 COMPARISON: Comparison is made to prior left shoulder dated 05 March 2022 RESULT: 3 views of the left shoulder demonstrate postsurgical changes of left shoulder arthroplasty. Visualized surgical hardware is intact and there is no radiographic evidence for loosening or superimposed fracture. IMPRESSION: Postsurgical changes without interval complication. Gis Programmer: PSCB Transcribe Date/Time: Apr 04 2022 3:26P Dictated by : NISA KITCHEN MD This examination was interpreted and the report reviewed and electronically signed by: NISA KITCHEN MD on Apr 04 2022 3:27PM EST [id number] [facility] ANES POSTPROC EVALon 022 ANES POSTPROC EVAL HNO ID: [id number] Author: Stephanie Ashby MD Service: ? Author Type: Anesthesiologist Type: Anesthesia Postprocedure Evaluation Filed: 03/19/2022 1:11 PM Note Text: POST ANESTHESIA EVALUATION NOTE : 1950 Procedure Summary Date: 03/19/22 Room / Location: [place] OR01 [place] Anesthesia Start: 756 Anesthesia Stop: 946 Procedure: REVERSE TOTAL SHOULDER ARTHROPLASTY (Left Shoulder) Diagnosis: Primary osteoarthritis of left shoulder Surgeons: Bert Ortiz MD Responsible Provider: Stephanie Ashby MD Anesthesia Type: general, regional ASA Status: 2 Anesthesia Type: general, regional Airway Type: ETT Last Vitals Vitals Value Taken Time BP 113/66 03/19/22 1015 Temp 36 ?C (96.8 ?F) 03/19/22 1015 Pulse 60 03/19/22 1029 Resp 11 03/19/22 1029 SpO2 95 % 03/19/22 1029 Vitals shown include unvalidated device data. Post Anesthesia Patient Status Patient Evaluation: bedside. Anticipated Disposition: phase 2 then home. Neurological Status: sleepy but arousable. Pulmonary Status: breathing comfortably on room air Airway Control: returned to baseline unsupported. Cardiovascular Status: stable. Pain Management: clinically adequate Postoperative Hydration: acceptable. Intraoperative Events: no significant anesthesia events Post Operative Nausea/Vomiting Status: no significant post operative nausea or vomiting Anesthetic Observations: Recommendation: continue current plan of care and pain control. Anesthesia Observations No Documentation SIGNATURE: Stephanie Ashby MD PATIENT NAME: Avery Vasquez DATE: March 19, 2022 TIME: 1:10 PM CSN: [id number] [facility] ANES PRE-OPon 03-19-2022 ANES PRE-OP HNO ID: [id number] Author: Stephanie Ashby MD Service: ? Author Type: Anesthesiologist Type: Anesthesia Preprocedure Evaluation Filed: 03/19/2022 7:21 AM Note Text: ANESTHESIOLOGY DAY OF SURGERY NOTE : 1950 Procedure Information Date/Time: 03/19/22729 Procedure: REVERSE TOTAL SHOULDER ARTHROPLASTY (Left Shoulder) Location: [place] [address] / [place] Surgeons: Bert Ortiz MD Estimated body mass index is 36.49 kg/m? as calculated from the following: Height as of this encounter: 172.7 cm (5' 8). Weight as of this encounter: 108.9 kg (240 lb). Most recent hematocrit and potassium results: Hematocrit 32.4 12/18/2017 Potassium 3.6 12/18/2017 Relevant Problems CARDIO (+) Hypertension (-) Angina at rest (HCC) (-) Angina of effort (HCC) PULMONARY (-) Asthma (-) Chronic obstructive pulmonary disease (COPD) (HCC) I - PHYSICAL EVALUATION AIRWAY Patient intubated: No. Tracheostomy tube not present Mallampati: II. TM distance: >3 FB. Neck ROM: full ROM without neurological symptoms. Mouth opening: adequate. Short neck: no. Thick neck: no DENTAL Dental findings: teeth intact. Additional exam findings: no II - ANESTHESIA PLAN ASA Score: 2 The patient is not a current smoker. NPO Status: adequate Beta Minda Administration of chronic beta minda medication not planned. Monitoring plan: standard ASA. Postoperative analgesic plan: multimodal analgesia. Informed Consent Anesthetic risks, benefits, alternatives, personnel and consent discussed: yes. Patient / Responsible Alliance Party agrees to proceed: yes Patient / Surrogate agrees to blood products: Yes DNR status not reviewed with patient and/or family prior to surgery. Significant changes in the patient condition since the History and Physical, not otherwise documented in primary service progress note: no. Potential Anesthesia issues that may suggest increased risk of complications or contraindication to planned procedure: none. Vitals Value Taken Time BP 173/87 03/19/2234 Pulse 61 03/19/2234 Resp 18 03/19/2234 Temp 36.4 ?C (97.5 ?F) 03/19/2234 SpO2 98 % 03/19/2234 Facility-Administered Medications as of 03/19/2022 Medication Dose Route Frequency - lidocaine 10 mg/mL (1 %) 1-2 mg injection (XYLOCAINE) 0.1-0.2 mL INTRADERMAL PRN - lactated ringers iv infusion 5-30 mL/hr INTRAVENOUS CONTINUOUS - ceFAZolin iv piggyback 2 g in D5W (iso-osmotic) 100 mL (ANCEF) 2 g INTRAVENOUS Pre-Op Once - [COMPLETED] acetaminophen 1,000 mg tab(s) (TYLENOL) 1,000 mg ORAL Pre-Op Once - midazolam (PF) 1-2 mg injection (VERSED) 1-2 mg INTRAVENOUS ONCE Outpatient Medications as of 03/19/2022 Medication Sig - metFORMIN ER (GLUMETZA) 500 mg 24 hr tablet Take 1,000 mg by mouth twice daily. - lisinopril (ZESTRIL, PRINIVIL) 10 mg tablet Take 10 mg by mouth once daily. - atorvastatin (LIPITOR) 10 mg tablet Take 10 mg by mouth once daily. - aspirin, enteric coated (ASPIRIN, ENTERIC COATED) 81 mg EC tablet Take 81 mg by mouth once daily. I have interviewed and examined the patient. I have reviewed the medical record and/or the pre-anesthesia evaluation, pertinent labs, and test results. This contains updated information obtained within 48 hours of Surgery/Procedure. SIGNATURE: Stephanie Ashby MD PATIENT NAME: Avery Vasquez DATE: March 19, 2022 TIME: 7:20 AM CSN: [id number] [facility] HISTORY PHYSICALon HISTORY PHYSICAL HNO ID: [id number] Author: Bert Ortiz MD Service: Orthopaedic Surgery Author Type: Physician Type: HANDP Filed: 03/19/2022 7:57 AM Note Text: UPDATED HISTORY AND PHYSICAL EXAMINATION SERVICE DATE: 03/19/2022 SERVICE TIME: 7:57 AM PHYSICAL EXAM MUST BE COMPLETED ON ADMISSION The History and Physical (completed in the past 30 days) has been reviewed and the patient has been examined. The contents accurately reflect the patient's condition with the following additions or revisions since the HANDP was completed. Examination indicates no changes. This HANDP can be found in the Electronic Medical Record dated 03/05/22. SIGNATURE: Bert Ortiz MD PATIENT NAME: Avery Vasquez DATE: March 19, 2022 TIME: 7:57 AM [facility] NURSING PROGon 03-19-2022 NURSING PROG HNO ID: [id number] Author: Bebe Stone RN Service: Nursing Author Type: Registered Nurse Type: Nursing Progress Note Filed: 03/19/2022 7:55 AM Note Text: Dr. Ashby at bedside for Ultrasound guided Left Interscalene nerve block. RN at bedside, pt monitored throughout, BP 136/69 Pulse 60 Temp 36.4 ?C (97.5 ?F) (Temporal Artery) Resp 18 Ht 172.7 cm (5' 8) Wt 108.9 kg (240 lb) SpO2 96% BMI 36.49 kg/m? . Pt medicated with Versed 2 mg IV. Pt tolerated procedure without difficulty. Report to Jovon CASAS, Dagoberto Savage CRNA. Pt marked by prior to nerve blolck. [facility] NURSING PROG HNO ID: [id number] Author: Bebe Stone RN Service: Nursing Author Type: Registered Nurse Type: Nursing Progress Note Filed: 03/19/2022 6:37 AM Note Text: Nursing Progress Note Patient Name: Avery Vasquez Patient Location: [place] Surgery[place] Surgery pt ready for OR, call light in reach, called to bedside This note was completed by: Bebe Stone [facility] OPERATIVE NOon 03-19-2022 OPERATIVE NO HNO ID: [id number] Author: Bert Ortiz MD Service: Orthopaedic Surgery Author Type: Physician Type: Operative Report Filed: 03/19/2022 10:56 AM Note Text: OPERATIVE/PROCEDURE REPORT LOG ID: [id number] SURGERY/PROCEDURE DATE: 03/19/2022 INCISION/PROCEDURE START TIME: 8:33 AM INCISION CLOSE/PROCEDURE END TIME: 9:36 AM SURGEON(S)/PROCEDURALIST(S ) AND PROFILE SAW SETUP OPERATOR(S): Surgeon(s) and Role: * Bert Ortiz MD - Primary Physician Steam Frame Operator: Mi Aguila PA-C; Bailey Coyle PA-C SURGERY/PROCEDURE(S): Left reverse total shoulder arthroplasty, open biceps tenodesis ANESTHESIA: General SURGERY/PROCEDURE DETAILS: Avery Vasquez is a 72 year old man who presented with persistent pain and shoulder weakness due to osteoarthritis. Based on the level of impairment, I offered reverse total shoulder arthroplasty for the purposes of pain relief and improved function of the shoulder. The risks, benefits, and alternatives to the procedure were discussed in detail in the office prior to scheduling surgery, and the patient expressed agreement and understanding with the plan. The patient was greeted in the preoperative holding area and identified by name and date of . Preoperative nerve block was administered. A preoperative meeting was held between the patient, myself, and other personnel that would be participating in surgery, and all were in agreement that left reverse total shoulder arthroplasty was the intended procedure. The left shoulder was marked as the operative site. The patient was taken to the operating room and transferred to the operating table in the supine position. General anesthesia was induced with endotracheal intubation. The patient was placed in the beach chair position with bilateral lower extremities padded and bilateral lower extremity sequential compression devices were applied. Intravenous antibiotic was given. The shoulder and upper extremity were prepped and draped in a sterile fashion. Time out was performed to confirm the correct patient, procedure, and operative site, and all were in agreement that left reverse shoulder arthroplasty was the correct procedure. I began by making a standard deltopectoral approach to the shoulder. The skin was incised sharply with a scalpel, and the subcutaneous tissues were dissected with Bovie electrocautery. Betadine was introduced into the surgical field for protection against Propionibaterium acnes infection. The deltopectoral interval was identified using the cephalic vein as a landmark, and the vein was taken medially with the pectoralis muscle. After releasing subdeltoid adhesions, the subacromial space was cleared bluntly and a Brown deltoid retractor was placed. I then identified the long head of biceps tendon within the bicipital groove. There was erythema and degenerative change with flattening of the tendon. I followed the tendon down to the pectoralis insertion and tenodesed this to the upper border of the pectoralis tendon with #2 Fiberwire suture, and released the remaining tendon from within the rotator interval. The excess biceps tendon was removed. The rotator cuff was examined. The patient was found to have no tearing. The glenohumeral joint was exposed by tenotomizing the subscapularis tendon from the lesser tuberosity of the humerus using Bovie electrocautery. The proximal humerus was exposed after releasing soft tissues from around the humeral neck. Using a guide, the humeral head was cut in 30 degrees of retroversion. All remaining osteophytes and irregularities were then removed from the humeral neck with a rongeour. The axillary nerve was palpated and found to be intact. The glenoid was exposed next, with the humeral head retracted posteriorly using a Hohmann retractor. I exposed the coracoid process and removed the stump of the biceps tendon from the superior glenoid. The anterior labrum was removed and a Cobra retractor was placed in the subscapularis fossa. Another Hohmann retractor was then placed superiorly to expose the entire glenoid. The cartilage was found to be severely worn. I removed the remaining labrum and marked the center of the glenoid with the Bovie. Using sequential guides, the glenoid baseplate was placed and securely fixed using locking screws. I placed the glenosphere and tested the mcguire taper mechanism, then secured this with a central screw. The area was then thoroughly irrigated and inspected for any remaining bone or soft tissue that might cause impingement, and this was removed. The humerus was then brought forward and exposed proximally with the Brown deltoid retractor and sharp Hohmann retractor. The canal was sequentially reamed. The metaphyseal reamer was then used to allow placement of the humerosocket. The canal was thoroughly irrigated. Cancellous bone autograft from the humeral head was taken and then placed into the humeral canal. (more content not included)... [facility] 03-10-2022 [facility] Telephone (RACH) -- AVERY VASQUEZ ([id number]) 1950 M Date Time Provider Department 03/10/22 BERT ORTIZ During your visit today, we recorded the following information about you: Katina Torres Sedc 03/10/2022 10:52 AM Signed Please reach out to patient and assist with scheduling post-op physical therapy. He is having a left reverse total shoulder arthroplasty on 03-19-2022. He needs to be seen in physical therapy approximately 1 week post-op. Please call patient and assist with scheduling. Thank you. Katina Cardenas Med Sed Katina Cardenas Med Sedc 03/12/2022 10:37 AM Signed Order for outpatient physical therapy following surgery mailed to patient per his request. Katina Torres Sedc Allergies As of Date: 03/10/2022 Noted Allergy Reaction BACTRIM (SULFAMETHOXAZOLE-TRIMETH* 12/16/2017 2 - Rash TRAMADOL 12/16/2017 16 - Unknown VICODIN (HYDROCODONE-ACETAMINOPHE* 12/16/2017 5 - Intolerance Date Reviewed: 03/05/2022 Reviewed by: Audrey Jacobs APRN.MORALE OFFICER - Fully Assessed Reason for Visit: Appointment [186] Prescriptions as of 03/12/2022 - glimepiride (AMARYL) 2 mg tablet Take 1 tablet by mouth once daily. - CALCIUM ORAL Take 1 tablet by mouth once daily. - multivitamin tablet Take 1 tablet by mouth once daily. - metFORMIN ER (GLUMETZA) 500 mg 24 hr tablet Take 1,000 mg by mouth twice daily. - lisinopril (ZESTRIL, PRINIVIL) 10 mg tablet Take 10 mg by mouth once daily. - atorvastatin (LIPITOR) 10 mg tablet Take 10 mg by mouth once daily. - aspirin, enteric coated (ASPIRIN, ENTERIC COATED) 81 mg EC tablet Take 81 mg by mouth once daily. Problem List As Of Date 03/10/2022 Noted Resolved Pneumomediastinum (HCC) [J98.2] 12/16/2017 03/05/2022 Trauma [T14.90XA] 12/16/2017 12/18/2017 Obesity, Class II, BMI 35-39.9 E66.9 [E66.9] 12/18/2017 Fracture three ribs-closed, right, initial enco*12/16/2017 03/05/2022 Primary osteoarthritis of left shoulder [M19.01*03/05/2022 Diabetes (HCC) [E11.9] Hypertension [I10] HLD (hyperlipidemia) [E78.5] Encounter Status:Closed by KATINA VILLANUEVA on 03/12/22 Normal [facility] CNOVon 03-05-2022 CNOV Office Visit (ORMDRG ) -- AVERY VASQUEZ ([id number]) 1950 M Date Time Provider Department 03/05/22 9:45 AM BERT ORTIZG During your visit today, we recorded the following information about you: Bert Ortiz MD 03/05/2022 11:16 AM Signed ORTHOPAEDIC SHOULDER AND ELBOW SERVICE HISTORY AND PHYSICAL EXAM REFERRING PROVIDER: SELF CHIEF COMPLAINT: Left shoulder osteoarthritis PAIN EVALUATION 03/05/2022 0958 Pain Level: 6 Pain Location: Shoulder-Left Description: Aching;Dull;Sore;Throbbing Duration Amount of Time: ? ongoing Frequency: Intermittent Intervention/Comfort measure: Reposition;Relaxation;Cold ;Medication Avery Vasquez is a 72 year old man who presents today for evaluation of his left shoulder. He has been treated in the past for osteoarthritis of the left shoulder with conservative measures which are no longer effective. He is noticing more pain and weakness as well as limited mobility of his left shoulder. He has undergone reverse arthroplasty for the right shoulder approximately 4 years ago with a good outcome. He is interested in discussing surgical options for his left shoulder today. PAST MEDICAL HISTORY: PAST MEDICAL HISTORY Diagnosis Date - Diabetes (HCC) - Hypertension - Osteoarthritis PAST SURGICAL HISTORY: PAST SURGICAL HISTORY Procedure Laterality Date - ORTHOPEDICS SURGERY HX Bilateral knee replacements - ORTHOPEDICS SURGERY HX Carpal tunnel surgery x 3 SOCIAL HISTORY: Social History Tobacco Use - Smoking status: Former Smoker Types: Cigars - Smokeless tobacco: Never Used Substance Use Topics - Alcohol use: Yes Alcohol/week: 5.0 standard drinks Types: 2 Glasses of Wine (5oz) per week - Drug use: No ALLERGIES: ALLERGIES Allergen Reactions - Bactrim [Sulfametho* Rash - Tramadol Unknown - Vicodin [Hydrocodon* Intolerance MEDICATIONS: Current Outpatient Medications on File Prior to Visit Medication Sig - metFORMIN ER (GLUMETZA) 500 mg 24 hr tablet Take 1,000 mg by mouth twice daily. - lisinopril (ZESTRIL, PRINIVIL) 10 mg tablet Take 10 mg by mouth once daily. - atorvastatin (LIPITOR) 10 mg tablet Take 10 mg by mouth once daily. - glimepiride (AMARYL) 1 mg tablet Take 2 mg by mouth daily with breakfast. Unknown dose - aspirin, enteric coated (ASPIRIN, ENTERIC COATED) 81 mg EC tablet Take 81 mg by mouth once daily. No current facility-administered medications on file prior to visit. PHYSICAL EXAMINATION: There were no vitals taken for this visit. EXAM: Shoulder Musculoskeletal Exam General Constitutional: appears stated age Labored breathing: no Psychiatric: normal mood and affect and no acute distress Neurological: alert and oriented x3 Skin: intact Inspection Inspection - Left Left shoulder inspection is normal. Palpation Palpation - Left Crepitus: no crepitus Increased warmth: none Tenderness: present Anterior shoulder: moderate Posterior shoulder: moderate Range of Motion Range of Motion - Left Active forward elevation: 60 Passive forward elevation: 60 Shoulder active abduction: 60 Passive abduction: 60 Active external rotation at side: 10 Passive external rotation at side: 10 Active external rotation in abduction: 10 Passive external rotation in abduction: 10 Active internal rotation in abduction: 0 Passive internal rotation in abduction: 0 Internal rotation: L5 Strength Strength - Left External rotation: 5/5 Internal rotation: 5/5 Abduction: 5/5 Neurovascular Neurovascular - Left Left shoulder nerve sensation is normal. Scapula Scapula - Left Position: normal Dyskinesia: none Winging: none IMAGING: I reviewed radiographs of his left shoulder today showing advanced osteoarthritis of the glenohumeral joint with loss of joint space and flattening of the humeral head. There is large osteophyte formation on the inferior humeral head MEDICAL DECISION MAKING: (M25.512, G89.29) Chronic left shoulder pain (primary encounter diagnosis) Comment: Plan: XR SHOULDER GENERAL 3V OR MORE AP/TRUE AP/OTHER LEFT Avery Vasquez presents today with severe osteoarthritis of the left shoulder not responsive any longer to conservative measures. After thorough review of history, examination findings, and imaging, we discussed surgical intervention today which would be reverse total shoulder arthroplasty. I described the procedure in detail as well as the expected healing time of 3-6 months and physical therapy regimen following surgery, likely for much of this time. Informed consent was discussed in detail and signed in the office today. Significant risks of surgery including those of general anesthesia, and those from surgery including infection, nerve injury, bleeding, procedure failure and possible need for repeat procedure were all discussed at the time of (more content not included)... Normal [facility] Linsey 03-05-2022 KINA Telephone (ACE) -- AVERY VASQUEZ ([id number]) 1950 M Date Time Provider Department 03/05/22 AUDREY JACOBS During your visit today, we recorded the following information about you: Audrey Jacobs APRN.LEXIE 03/05/2022 3:[address] Ortiz, I saw Mr. Vasquez March 05, 2022 for pre-testing as he is scheduled for a total left shoulder arthroplasty on March 19, 2022. Patient has diabetes with most recent HbA1C at 7.6 (02/2022). He reports he was scheduled for surgery with a different provider/hospital system and they canceled his procedure because of his elevated HbA1C. He reports he has already discussed this with you. He states blood sugars are between 130-145 when he checks them daily at home. He is compliant with oral medication. Just wanted to confirm patient is OK to proceed with surgery in regards to diabetic control. Thank you for your time, Audrey Jacobs APRN.LEXIE Jacobs APRN.CNP 03/05/2022 3:52 PM Signed Katina Torres [facility] John 4 minutes ago (3:47 PM) Marty Ventura, I got some of his labs from his previous work-up. I will send them over. I just got them. Dr. Ortiz is aware of the elevated A1c and is still willing to proceed. Thanks. Katina Allergies As of Date: 03/05/2022 Noted Allergy Reaction BACTRIM (SULFAMETHOXAZOLE-TRIMETH* 12/16/2017 2 - Rash TRAMADOL 12/16/2017 16 - Unknown VICODIN (HYDROCODONE-ACETAMINOPHE* 12/16/2017 5 - Intolerance Date Reviewed: 03/05/2022 Reviewed by: Audrey Jacobs APRN.CNP - Fully Assessed Reason for Visit: Pre-Op Update [997] Prescriptions as of 03/05/2022 - glimepiride (AMARYL) 2 mg tablet Take 1 tablet by mouth once daily. - CALCIUM ORAL Take 1 tablet by mouth once daily. - multivitamin tablet Take 1 tablet by mouth once daily. - metFORMIN ER (GLUMETZA) 500 mg 24 hr tablet Take 1,000 mg by mouth twice daily. - lisinopril (ZESTRIL, PRINIVIL) 10 mg tablet Take 10 mg by mouth once daily. - atorvastatin (LIPITOR) 10 mg tablet Take 10 mg by mouth once daily. - aspirin, enteric coated (ASPIRIN, ENTERIC COATED) 81 mg EC tablet Take 81 mg by mouth once daily. Problem List As Of Date 03/05/2022 Noted Resolved Pneumomediastinum (HCC) [J98.2] 12/16/2017 03/05/2022 Trauma [T14.90XA] 12/16/2017 12/18/2017 Obesity, Class II, BMI 35-39.9 E66.9 [E66.9] 12/18/2017 Fracture three ribs-closed, right, initial enco*12/16/2017 03/05/2022 Primary osteoarthritis of left shoulder [M19.01*03/05/2022 Diabetes (HCC) [E11.9] Hypertension [I10] HLD (hyperlipidemia) [E78.5] Encounter Status:Closed by AUDREY JACOBS on 03/05/22 [facility] KIAN Telephone (PANEWO) -- AVERY VASQUEZ ([id number]) 1950 M Date Time Provider Department 03/05/22 DIANA MENDEZ During your visit today, we recorded the following information about you: Bebe Bynum LPN 03/05/2022 2:46 PM Signed Sent fax to [facility] medical records requesting most recent EKG results. JONAS Vazquez LPN 03/10/2022 8:38 AM Signed Received fax from [facility] Medical records. Copy made for Diana Mendez CNP and original sent to foiling machine operator to scan. Bebe Bynum LPN Allergies As of Date: 03/05/2022 Noted Allergy Reaction BACTRIM (SULFAMETHOXAZOLE-TRIMETH* 12/16/2017 2 - Rash TRAMADOL 12/16/2017 16 - Unknown VICODIN (HYDROCODONE-ACETAMINOPHE* 12/16/2017 5 - Intolerance Date Reviewed: 03/05/2022 Reviewed by: Audrey Jacobs APRN.MORALE OFFICER - Fully Assessed Reason for Visit: Request for outside medical records [Other] Cmt: EKG Prescriptions as of 03/10/2022 - glimepiride (AMARYL) 2 mg tablet Take 1 tablet by mouth once daily. - CALCIUM ORAL Take 1 tablet by mouth once daily. - multivitamin tablet Take 1 tablet by mouth once daily. - metFORMIN ER (GLUMETZA) 500 mg 24 hr tablet Take 1,000 mg by mouth twice daily. - lisinopril (ZESTRIL, PRINIVIL) 10 mg tablet Take 10 mg by mouth once daily. - atorvastatin (LIPITOR) 10 mg tablet Take 10 mg by mouth once daily. - aspirin, enteric coated (ASPIRIN, ENTERIC COATED) 81 mg EC tablet Take 81 mg by mouth once daily. Problem List As Of Date 03/05/2022 Noted Resolved Pneumomediastinum (HCC) [J98.2] 12/16/2017 03/05/2022 Trauma [T14.90XA] 12/16/2017 12/18/2017 Obesity, Class II, BMI 35-39.9 E66.9 [E66.9] 12/18/2017 Fracture three ribs-closed, right, initial enco*12/16/2017 03/05/2022 Primary osteoarthritis of left shoulder [M19.01*03/05/2022 Diabetes (HCC) [E11.9] Hypertension [I10] HLD (hyperlipidemia) [E78.5] Encounter Status:Closed by BEBE BYNUM on 03/10/22 [facility] ([id number]) 1950 M Date Time Provider Department 03/05/22 BERT ORTIZ During your visit today, we recorded the following information about you: Katina Cardenas Med Sedc 03/05/2022 11:34 AM Signed Please sign post-op physical therapy order. Thank you. Katina Cardenas Med Sedc Allergies As of Date: 03/05/2022 Noted Allergy Reaction BACTRIM (SULFAMETHOXAZOLE-TRIMETH* 12/16/2017 2 - Rash TRAMADOL 12/16/2017 16 - Unknown VICODIN (HYDROCODONE-ACETAMINOPHE* 12/16/2017 5 - Intolerance Date Reviewed: 03/05/2022 Reviewed by: Audrey Jacobs APRN.MORALE OFFICER - Fully Assessed Reason for Visit: Orders [681] Primary Visit Diagnosis:Primary osteoarthritis of left shoulder [M19.012] Order(s):CONSULT TO PHYSICAL THERAPY [9032] Order #: [id number]: 1 FUTURE Prescriptions as of 03/09/2022 - glimepiride (AMARYL) 2 mg tablet Take 1 tablet by mouth once daily. - CALCIUM ORAL Take 1 tablet by mouth once daily. - multivitamin tablet Take 1 tablet by mouth once daily. - metFORMIN ER (GLUMETZA) 500 mg 24 hr tablet Take 1,000 mg by mouth twice daily. - lisinopril (ZESTRIL, PRINIVIL) 10 mg tablet Take 10 mg by mouth once daily. - atorvastatin (LIPITOR) 10 mg tablet Take 10 mg by mouth once daily. - aspirin, enteric coated (ASPIRIN, ENTERIC COATED) 81 mg EC tablet Take 81 mg by mouth once daily. Problem List As Of Date 03/05/2022 Noted Resolved Pneumomediastinum (HCC) [J98.2] 12/16/2017 03/05/2022 Trauma [T14.90XA] 12/16/2017 12/18/2017 Obesity, Class II, BMI 35-39.9 E66.9 [E66.9] 12/18/2017 Fracture three ribs-closed, right, initial enco*12/16/2017 03/05/2022 Primary osteoarthritis of left shoulder [M19.01*03/05/2022 Diabetes (HCC) [E11.9] Hypertension [I10] HLD (hyperlipidemia) [E78.5] Encounter Status:Closed by BERT ORTIZ on 03/09/22 [facility] CONFIRM BLOOD TYPEon 022 ABO A Normal [facility] Comment on above: Order Comment: Speci men Type: BLOOD SPECIMENOrdering Facility: [facility] Address: [address] [place] [address] Performed By: #### C ONABO ####CC MAIN BLOOD BANKCLIA [id number] [address] Rh Nom (Bld) Positive [facility] Comment on above: Order Comment: Speci men Type: BLOOD SPECIMENOrdering Facility: [facility] Address: [address] [place] [address] Performed By: #### C ONABO ####CC MAIN BLOOD BANKCLIA [id number] [address] OF [facility] HISTORY PHYSICALon HISTORY PHYSICAL HNO ID: [id number] Author: Audrey Jacobs APRN.MORALE OFFICER Service: ? Author Type: Nurse Practitioner Type: HANDP Filed: 03/05/2022 3:28 PM Note Text: HISTORY AND PHYSICAL EXAMINATION SERVICE DATE: 03/05/2022 SERVICE TIME: 2:49 PM PRIMARY CARE PHYSICIAN: Jair Henning MD REASON FOR VISIT: Avery Vasquez is a 72 year old male who is scheduled for REVERSE TOTAL SHOULDER ARTHROPLASTY at the request of Dr. Bert Ortiz for consultation. My final recommendation will be communicated back to the requesting physician by way of shared medical record or letter. Subjective The patient has the following: ACTIVE PROBLEM LIST Obesity, Class II, BMI 35-39.9 E66.9 Primary Osteoarthritis of Left Shoulder Diabetes (Hcc) Hypertension Hld (Hyperlipidemia) COVID-19 Immunization Status Overdue - COVID-19 VACCINE (4 - Booster for Pfizer series) Overdue since 10/26/2021 06/25/2021 Outside Immunization: COVID-19, mRNA, LNP-S, PF, 30 mcg/0.3 mL dose 11/20/2020 Outside Immunization: COVID-19, mRNA, LNP-S, PF, 30 mcg/0.3 mL dose 10/23/2020 Outside Immunization: COVID-19, mRNA, LNP-S, PF, 30 mcg/0.3 mL dose CHIEF COMPLAINT: Pre-Op Exam HPI: 72 year old male presents with osteoarthritis of left shoulder. Patient was scheduled for surgery with a different provider but was canceled due to an HbA1C of 7.6. He states he has discussed his HbA1C with Dr. Ortiz. The shoulder has been bothersome since 2013. He has pain intermittently which varies in sensation. The pain wakes him up pretty much every night. He has occasional numbness and tingling in the fingers but denies radiating pain. Sitting in a chair and rest help with some relief. He takes ibuprofen if the pain get really bad. He has limited range of motion and can barely raise his arm above his head. He tried cortisone injections previously but they did not provide any relief. REVIEW OF SYSTEMS: General: No weight loss, malaise or fevers. Neurological: Positive for: impaired sensorium (SEE HPI. Present in feet, started after TKA). Negative for: headaches, multiple sclerosis, Parkinson's disease, seizures, TIA and strokes. Respiratory: No history of current cough or dyspnea, or pneumonia in the past 6 weeks. No history of respiratory/pulmonary symptoms or problems. Cardiovascular: Positive for: hyperlipidemia (on Rx) and hypertension (on Rx) Negative for: arrhythmia, atrial fibrillation, CAD, chest pain, CHF, DVT/PE, recent [place] and murmur/valvular heart disease. GI: No history of GI symptoms or problems. No history of esophageal varices, recent ascites, or ETOH greater than 2 drinks per day. : No history of dysuria, frequency or incontinence, stones or chronic kidney disease. No difficulty urinating, nocturia > 1 time per night or hematuria. Endocrine: Positive for: diabetes mellitus (Oral medication. Checks glucose daily, 130-140). Negative for: hyperthyroidism and hypothyroidism. Hematology: No history of bleeding or clotting disorder. Patient is not taking anti-coagulation or platelet medications. No history of hematological symptoms or problems. Oncology: No history of CA metastasis, chemo within 30 days, or radiotherapy within 90 days. No history of oncological symptoms or problems. Psych: No history of psychiatric symptoms or problems. Musculoskeletal: Positive for: joint pain (SEE HPI). Negative for: swelling. Skin: Negative for lesions, rash and itching. PAST MEDICAL HISTORY Diagnosis Date - Diabetes (HCC) - HLD (hyperlipidemia) - Hypertension - Osteoarthritis PAST SURGICAL HISTORY Procedure Laterality Date - ARTHROPLASTY TOTAL SHOULDER Right 2018 - BRONCHOSCOPY 2018 - FINGER SURGERY HX - REVISE MEDIAN N/CARPAL TUNNEL SURG x 3 - SKIN GRAFT HX Left Hand - 1980s, Thigh - massive hematoma - TOTAL KNEE REPLACEMENT Bilateral FAMILY HISTORY Problem Relation Age of Onset - Heart Attack Mother - Heart Attack Father - other (Glioblastoma) Father - other (triple bypass) Brother Social History Tobacco Use - Smoking status: Former Smoker Types: Cigars Quit date: 1979 Years since quittin.5 - Smokeless tobacco: Never Used Vaping Use - Vaping Use: Never used Substance Use Topics - Alcohol use: Yes Alcohol/week: 5.0 standard drinks Types: 2 Glasses of Wine (5oz) per week - Drug use: No Prior to Admission medications as of 03/05/22 1506 Medication Sig Last Dose Taking glimepiride (AMARYL) 2 mg tablet Take 1 tablet by mouth once daily. Taking Yes CALCIUM ORAL Take 1 tablet by mouth once daily. Taking Yes multivitamin tablet Take 1 tablet by mouth once daily. Taking Yes metFORMIN ER (GLUMETZA) 500 mg 24 hr tablet Take 1,000 mg by mouth twice daily. Taking Yes lisinopril (ZESTRIL, PRINIVIL) 10 mg tablet Take 10 mg by mouth once daily. Taking Yes atorvastatin (LIPITOR) 10 mg tablet Take 10 mg by mouth once daily. Taking Yes aspirin, enteric coated (ASPIRI (more content not included)... Normal [facility] No Panel Informationon 03-05 [facility] TYPE AND SCREEN,30 DAYon ABO A Normal [facility] Comment on above: Order Comment: Speci men Type: BLOOD SPECIMENOrdering Facility: [facility] Address: [address] [place] [address] Performed By: #### T SCR30 ####CC MAIN BLOOD BANKCLIA [id number] [place] [address] [place] HISTORICAL AB SCR STATUS Negative Normal [facility] Comment on above: Order Comment: Speci men Type: BLOOD SPECIMENOrdering Facility: [facility] Address: [address] [place], [place] [address] [id number] Performed By: #### T SCR30 ####CC MAIN BLOOD BANKCLIA [id number] [address] OF [place] Rh Nom (Bld) Positive Normal [facility] Comment on above: Order Comment: Speci men Type: BLOOD SPECIMENOrdering Facility: [facility] [address]: [address] [facility] [address] Performed By: #### T SCR30 ####CC MAIN BLOOD BANKCLIA [id number] [address] OF [place] XR SHLDR >/=3V AP/TABITHA AP/OTH R LTon 03-05-2022 XR SHLDR >/=3V AP/TABITHA AP/OTHR LT * * *Final Report* * * DATE OF EXAM: Mar 05 2022 10:49AM JOSIANE 5252 - XR SHLDR >/=3V AP/TABITHA AP/OTHR LT / PROCEDURE REASON: multiple diagnoses * * * * Physician Interpretation * * * * EXAM(s): XR SHLDR >/=3V AP/TABITHA AP/OTHR LT EXAM DATE/TIME: 03/05/2022 10:49 AM HISTORY: 72 years old Clinical information: Chronic left shoulder pain Chronic left shoulder pain LEFT SHOULDER PAIN TECHNIQUE: Images: XR SHLDR >/=3V AP/TABITHA AP/OTHR LT Comparison: None. RESULT: Findings: Severe narrowing of the glenohumeral joint. There are sclerotic changes in the humeral head and the glenoid. There is a large bone fragment adjacent to the anterior aspect of the glenohumeral joint. This could be within the joint space. There is marked narrowing of the AC joint. There is some calcification or ossification along the superior aspect of this joint space. Bone density appears well-preserved. No fractures or dislocations are seen. There are marked degenerative changes in the lower cervical spine and visualized thoracic spine. IMPRESSION: Severe degenerative changes in the shoulder as discussed Gis Programmer: CARINA Transcribe Date/Time: Mar 05 2022 11:11A Dictated by : ESTRELLA LARRICK, DO This examination was interpreted and the report reviewed and electronically signed by: ESTRELLA KAUR DO on Mar 05 2022 11:18AM EST [id number] [facility] CNPN Telephone (CAILINMDNA) -- AVERY VASQUEZ ([id number]) 1950 M Date Time Provider Department 02/18/22 VICKI DUMONT During your visit today, we recorded the following information about you: Milly Garcia 02/18/2022 3:44 PM Signed Patient called asking for advice from Dr. Dumont. He stated he saw her years ago at [facility], and she had told him that he would eventually need shoulder surgery. That time has come, and Avery was scheduled for surgery, but [facility] cancelled it because his A1C was at 7.6, and they refuse to do surgery if it is above 7.5. I tried to schedule him with a provider within the [facility], but all apropriate providers were too far. He is wondering if she could make any recommendations as to who he could see? It doesn't necessarily need to be [facility]; he is just concerned about it not being far away. Please advise. Milly Dueñas 02/19/2022 10:40 AM Signed If patient is willing to drive to [place], Dr. Rodriguez said she would be willing to see him since he is a previous patient. Can we please call patient and schedule an in person or virtual visit? Dr. Rodriguez is fine with either. Suzanne Holcomb PSS 02/19/2022 10:50 AM Signed Patient has been scheduled Thanks Allergies As of Date: 02/18/2022 Noted Allergy Reaction BACTRIM (SULFAMETHOXAZOLE-TRIMETH* 12/16/2017 2 - Rash TRAMADOL 12/16/2017 16 - Unknown VICODIN (HYDROCODONE-ACETAMINOPHE* 12/16/2017 5 - Intolerance Date Reviewed: 12/18/2017 Reviewed by: Martha (Rn) YESSENIA Glass - Fully Assessed Reason for Visit: Patient Question [8917] Cmt: Shoulder Surgery Prescriptions as of 02/19/2022 - metFORMIN ER (GLUMETZA) 500 mg 24 hr tablet Take 1,000 mg by mouth twice daily. - lisinopril (ZESTRIL, PRINIVIL) 10 mg tablet Take 10 mg by mouth once daily. - atorvastatin (LIPITOR) 10 mg tablet Take 10 mg by mouth once daily. - glimepiride (AMARYL) 1 mg tablet Take 2 mg by mouth daily with breakfast. Unknown dose - aspirin, enteric coated (ASPIRIN, ENTERIC COATED) 81 mg EC tablet Take 81 mg by mouth once daily. Problem List As Of Date 02/18/2022 Noted Resolved Pneumomediastinum (HCC) [J98.2] 12/16/2017 Trauma [T14.90XA] 12/16/2017 12/18/2017 Obesity, Class II, BMI 35-39.9 E66.9 [E66.9] 12/18/2017 Fracture three ribs-closed, right, initial enco*12/16/2017 Encounter Status:Closed by PATITO GOLDBERG on 02/19/22 Normal [facility] Absolute lymphocyte counton 02-15-2022 Lymphocytes Auto (Unsp spec) [#/Vol] 1.63 10*3/uL 0.83-4.51 [facility] Work Phone: Basophil percentageon 2021 Basophils/100 WBC (Bld) 0.7 % 0-1 [facility] Work Phone: Chloride [Moles/Vol] 107 mmol/L 98-107 [facility]: Eosinophils/100 WBC (Bld) 5.0 % 0-5 [facility] Work Phone: Glucose [Mass/Vol] 145 mg/dL 74-106 [facility] Work Phone: Comment on above: Fasting Glucose resu lt greater than or equal to 126 mg/dL suggests DIABETES MELLITUS per A.D.A. criteria. Neutrophils (Bld) [#/Vol] 3.1 10*3/uL 2.0-7.7 [facility] Work Phone: Neutrophils/100 WBC (Bld) 55.6 % 47-70 [facility] Work Phone: [phone] Potassium [Moles/Vol] 4.7 mmol/L 3.5-5.1 [facility] Work Phone: Sodium [Moles/Vol] 138 mmol/L 136-145 [facility] Work Phone: WBC (Bld) [#/Vol] 5.6 10*3/uL 4.4-11.0 [facility] Work Phone: Blood erythrocytes count (nu mber/volume)on 02-15-2022 RBC (Bld) [#/Vol] 4.68 10*6/uL 4.6-6.2 [facility] Work Phone: Blood hemoglobin measurement (mass/volume)on 02-15-2022 Hemoglobin (Bld) [Mass/Vol] 13.8 g/dL 13.0-16.5 [facility] Work Phone: Blood lymphocytes/100 leukoc yteson 02-15-2022 Lymphocytes/100 WBC (Bld) 29.3 % 19-41 [facility] Work Phone: Blood monocytes/100 leukocyt eson 02-15-2022 Monocytes/100 WBC (Bld) 9.0 % 0-10 [facility] Work Phone: Blood platelet mean volumeon 02-15-2022 Platelet mean volume (Bld) [Entitic vol] 9.6 fL 6.2-12.0 [facility] Work Phone: Determination of erythrocyte mean corpuscular volume (MCV)on 02-15-2022 MCV (RBC) [Entitic vol] 90.6 fL 80-94 [facility] Work Phone: [phone] Hematocrit Auto (Bld) [Volum e fraction]on 02-15-2022 Hematocrit (Bld) [Volume fraction] 42.4 % 40-54 [facility] Work Phone: Laboratory - Chemistry and C hemistry - challengeon 02-15-2022 CO2 [Moles/Vol] 28.0 mmol/L 21.0-32.0 [facility] Work Phone: Magnesium [Mass/Vol] 1.6 mg/dL 1.6-2.6 [facility] Work Phone: Urea nitrogen/Creatinine [Mass ratio] 25.7 mg/mg 10-20 [facility] Work Phone: Laboratory - Hematology and Cell countson 02-15-2022 Erythrocyte distribution width (RBC) [Entitic vol] 45.2 fL 35.1-43.9 [facility] Work Phone: Erythrocyte distribution width (RBC) [Ratio] 13.5 % 11.6-14.6 [facility] Work Phone: Immature granulocytes/100 WBC (Bld) 0.400 % 0.0-0.9 [facility] Work Phone: Comment on above: IG% - Immature Granu locytes (promyelocytes, myelocytes and metamyelocytes) > 1% indicates that a LEFT SHIFT is Present. MCH (RBC) [Entitic mass] 29.5 pg 27.0-32.0 [facility] Work Phone: Nucleated RBC/100 WBC (Bld) [Ratio] 0 % 0-5 [facility] Work Phone: MCHC Auto (RBC) [Mass/Vol]on 02-15-2022 MCHC (RBC) [Mass/Vol] 32.5 g/dL 32-36 [facility] Work Phone: No Panel Informationon 02-15 Estimated GFR (MDRD) Amer 113 mL/min >60 [facility] Work Phone: Comment on above: GFR Calc Estimated GFR (MDRD) Non-Af Amer 93 mL/min >60 [facility] Work Phone: Comment on above: Non- GFR Calc Platelets bldon 02-15-2022 Platelets (Bld) [#/Vol] 227 10*3/uL 150-450 [facility] Work Phone: Serum or plasma albumin winsome urement (mass/volume)on 02-15-2022 Albumin [Mass/Vol] 3.6 g/dL 3.2-5.0 [facility] Work Phone: Serum or plasma calcium winsome urement (mass/volume)on 02-15-2022 Calcium [Mass/Vol] 9.7 mg/dL 8.5-10.1 [facility] Work Phone: Serum or plasma creatinine m easurement (mass/volume)on 02-15-2022 Creatinine [Mass/Vol] 0.86 mg/dL 0.70-1.30 [facility] Work Phone: Comment on above: The validity of the calculated GFR & GFRAA in patients over 70 years has not been determined. Clinical correlation is essential. Serum or plasma urea nitroge n measurement (mass/volume)on 02-15-2022 Urea nitrogen [Mass/Vol] 22 mg/dL 7-18 [facility] Work Phone: Thin prep Papanicolaou smear with manual screeningon 02-15-2022 Thin prep Papanicolaou smear with manual screening 3 5-15 [facility] Work Phone: Whole blood hemoglobin A1c/t otal hemoglobin ratio (mass fraction)on 02-15-2022 HbA1c (Bld) [Mass fraction] 7.6 % 3.8-5.6 [facility] Work Phone: Comment on above: Normal < 5.7 % Predi abetic 5.7 - 6.4 % Diabetic >or= 6.5 % Please note range changes. .Auto Diffon 08-16-2018 Ammonia mass conc (P) 0.90 10 3/mcL Normal 0.15-1.00 [facility] ([place]) Comment on above: Performed By: #### C BERNADETTE, MOUNIKA GOMEZ #### [address] [address] #### BMP, GFR #### [address] [address] Basophils #/vol (Bld) 0.00 10 3/mcL Normal 0.00-0.19 [facility] ([place]) Comment on above: Performed By: #### C BC, ADIFF, ANEU #### [place] [address] #### BMP, GFR #### [address] [address] Basophils/100 WBC (Bld) 0.4 % Normal 0.0-2.5 A [facility] ([place]) Comment on above: Performed By: #### C BC, ADIFF, ANEU #### [place] [address] #### BMP, GFR #### [address] [address] Eosinophils #/vol (Bld) 0.20 10 3/mcL Normal 0.00-0.40 [facility] ([place]) Comment on above: Performed By: #### C BC, ADIFF, ANEU #### [place] [address] #### BMP, GFR #### [address] [address] Eosinophils/100 WBC (Bld) 1.5 % Normal 0.0-7.0 [facility] ([place]) Comment on above: Performed By: #### C BC, ADIFF, ANEU #### [place] [address] #### BMP, GFR #### [address] [address] Lymphocytes #/vol (Bld) 0.80 10 3/mcL Normal 0.77-3.85 [facility] ([place]) Comment on above: Performed By: #### C BC, ADIFF, ANEU #### [place] [address] #### BMP, GFR #### [address] [address] Lymphocytes/100 WBC (Bld) 7.5 % Low 10.0-50.0 [facility] ([place] Comment on above: Performed By: #### C BC, ADIFF, ANEU #### [address] [address] #### BMP, GFR #### [address] [address] Monocytes/100 WBC (Bld) 9.1 % Normal 1.7-13.0 A [facility] ([place]) Comment on above: Performed By: #### C BC, ADIFF, ANEU #### [address] [address] #### BMP, GFR #### [address] [address] Neutrophils/100 WBC (Bld) 81.5 % High 37.0-80.0 [facility] ([place] Comment on above: Performed By: #### C BC, ADIFF, ANEU #### [address] [address] #### BMP, GFR #### [address] [address] .GFRon 08-16-2018 GFR 88 ml/min/1.73sqm Normal [facility] ([place] Comment on above: Result Comment: GFR Population mean for , Non- Americans Ages 20-29 = 116 mL/min/1.73 sq.m. Ages 30-39 = 107 mL/min/1.73 sq.m. Ages 40-49 = 99 mL/min/1.73 sq.m. Ages 50-59 = 93 mL/min/1.73 sq.m. Ages 60-69 = 85 mL/min/1.73 sq.m. Ages 70+ = 75 mL/min/1.73 sq.m. Chronic Kidney Disease: Less than 60 mL/min/1.73 square meters End Stage Renal Disease: Less than 15 mL/min/1.73 square meters Performed By: #### C BC, ADIFF, ANEU #### [address] [address] #### BMP, GFR, A1C #### [address] [address] GFR Non- 73 ml/min/1.73sqm Normal [facility] ([place] Comment on above: Result Comment: GFR Population mean for , Non- Americans Ages 20-29 = 116 mL/min/1.73 sq.m. Ages 30-39 = 107 mL/min/1.73 sq.m. Ages 40-49 = 99 mL/min/1.73 sq.m. Ages 50-59 = 93 mL/min/1.73 sq.m. Ages 60-69 = 85 mL/min/1.73 sq.m. Ages 70+ = 75 mL/min/1.73 sq.m. Chronic Kidney Disease: Less than 60 mL/min/1.73 square meters End Stage Renal Disease: Less than 15 mL/min/1.73 square meters Performed By: #### C BCALEXIFF, ANEU #### [place] [address] #### BMP, GFR, A1C #### [address] [address] .NEUABSon 08-16-2018 Neutrophils #/vol (Bld) 8.40 10 3/mcL High 2.85-6.16 [facility] ([place]) Comment on above: Performed By: #### C BCALEXIFF, ANEU #### [place] [address] #### BMP, GFR #### [place] [id number] BMPon 08-16-2018 Calcium mass conc 9.1 mg/dL Normal 8.4-10.2 [facility] ([place]) Comment on above: Performed By: #### C BCPATRICIA, ANEU #### [place] [address] #### BMP, GFR, A1C #### [address] [address] Chloride molar conc 102 mmol/L Normal 98-107 [facility] ([place]) Comment on above: Performed By: #### C BC, ADIFF, ANEU #### [address] [address] #### BMP, GFR, A1C #### [address] [address] CO2 molar conc 27 mmol/L Normal 23-31 [facility] ([place] Comment on above: Performed By: #### C BC, ADIFF, ANEU #### [address] [address] #### BMP, GFR, A1C #### [address] [address] Creatinine mass conc 1.02 mg/dL Normal 0.70-1.30 [facility] ([place]) Comment on above: Performed By: #### C BC, ADIFF, ANEU #### [address] [address] #### BMP, GFR, A1C #### [address] [address] Electrolyte Balance 8.0 mEq/L Normal [facility] ([place]) Comment on above: Performed By: #### C BC, ADIFF, ANEU #### [address] [address] #### BMP, GFR, A1C #### [address] [address] Glucose mass conc 146 mg/dL High 80-115 [facility] ([place]) Comment on above: Performed By: #### C BC, ADIFF, ANEU #### [address] [address] #### BMP, GFR, A1C #### [address] [address] Potassium molar conc 4.6 mmol/L Normal 3.5-5.1 [facility] ([place]) Comment on above: Performed By: #### C BC, ADIFF, ANEU #### [address] [address] #### BMP, GFR, A1C #### [address] [address] Sodium molar conc 137 mmol/L Normal 136-145 [facility] ([place] Comment on above: Performed By: #### C BC, ADIFF, ANEU #### [address] [address] #### BMP, GFR, A1C #### [address] [address] Urea nitrogen mass conc 24 mg/dL High 7-18 A [facility] ([place]) Comment on above: Performed By: #### C BC, ADIFF, ANEU #### [address] [address] #### BMP, GFR, A1C #### [place] [address] Urea nitrogen/Creatinine mass ratio 24 ratio Normal 7- [facility] ([place] Comment on above: Performed By: #### C BC, ADIFF, ANEU #### [place] [address] #### BMP, GFR, A1C #### [address] [address] CBCon 08-16-2018 Erythrocyte distribution width Ratio (RBC) 14.5 % Normal 11.5-14.5 [facility] ([place] Comment on above: Performed By: #### C BC, ADIFF, ANEU #### [address] [address] #### BMP, GFR #### [place] [address] Hematocrit Volume Fraction (Bld) 38.4 % Low 42.0-52.0 [facility] ([place] Comment on above: Performed By: #### C BC, ADIFF, ANEU #### [address] [address] #### BMP, GFR #### [address] [address] Hemoglobin mass conc (Bld) 12.6 G/dL Low 14.0-18.0 [facility] ([place]) Comment on above: Performed By: #### C BC, ADIFF, ANEU #### [address] [address] #### BMP, GFR #### [address] [address] MCH Entitic mass (RBC) 28.1 pg Normal 27.0-31.2 [facility] ([place]) Comment on above: Performed By: #### C BC, ADIFF, ANEU #### [place] [address] #### BMP, GFR #### [address] [address] MCHC mass conc (RBC) 32.9 G/dL Normal 31.8-35.4 [facility] ([place]) Comment on above: Performed By: #### C BC, ADIFF, ANEU #### [place] [address] #### BMP, GFR #### [address] [address] MCV Entitic volume (RBC) 85.3 fL Normal 80.0-94.0 [facility] ([place]) Comment on above: Performed By: #### C BC, ADIFF, ANEU #### [place] [address] #### BMP, GFR #### [address] [address] Platelet mean volume Entitic volume (Bld) 8.2 fL Normal 7.4-10.4 [facility] ([place] Comment on above: Performed By: #### C BC, ADIFF, ANEU #### [address] [address] #### BMP, GFR #### [address] [address] Platelets #/vol (Bld) 222 10 3/mcL Normal 130-400 A [facility] ([place]) Comment on above: Performed By: #### C BC, ADIFF, ANEU #### [place] [id number] #### BMP, GFR #### [place] [address] RBC #/vol (Bld) 4.50 10 6/mcL Normal 4.04-6.13 [facility] ([place] Comment on above: Performed By: #### C BC, ADIFF, ANEU #### [address] [address] #### BMP, GFR #### [place] [address] WBC #/vol (Bld) 10.30 10 3/mcL Normal 4.60-10.80 [facility] ([place] Comment on above: Performed By: #### C BC, ADIFF, ANEU #### [place] [address] #### BMP, GFR #### [place] [address] XR SHOULDER MINIMUM 2 VIEWS RIGHTon 08-15-2018 XR SHOULDER MINIMUM 2 VIEWS RIGHT ORIGINAL XR SHOULDER MINIMUM 2 VIEWS RIGHT CLINICAL STATEMENT: Status Post Arthroplasty COMPARISON: None FINDINGS:3 images of the RIGHT shoulder demonstrate postoperative changes to the soft tissues with prosthesis in place. There is limited bony detail due to technical factors. No obvious fracture is confirmed within the imaged areas IMPRESSION:Post prosthesis placement Interpreted By: Sun Hoyos MD Preliminary Report By: Sun Hoyos MD Electronically Signed By: Sun Hoyos MD Dictated Date: 08/15/2018 11:16:38 AM Prelim Date: 08/15/2018 11:16:38 AM Sign Date: 08/15/2018 11:16:58 AM Normal [facility] ([place]) .Auto Diffon 08-07-2018 Ammonia mass conc (P) 0.50 10 3/mcL Normal 0.15-1.00 [facility] ([place] Comment on above: Performed By: #### C BC, ADIFF, ANEU #### [place] [address] #### BMP, GFR, A1C #### [place] [address] Basophils #/vol (Bld) 0.00 10 3/mcL Normal 0.00-0.19 [facility] ([place] Comment on above: Performed By: #### C BC, ADIFF, ANEU #### [place] [address] #### BMP, GFR, A1C #### [address] [address] Basophils/100 WBC (Bld) 0.5 % Normal 0.0-2.5 [facility] ([place]) Comment on above: Performed By: #### C BC, ADIFF, ANEU #### [place] [address] #### BMP, GFR, A1C #### [address] [address] Eosinophils #/vol (Bld) 0.20 10 3/mcL Normal 0.00-0.40 [facility] ([place]) Comment on above: Performed By: #### C BC, ADIFF, ANEU #### [place] [address] #### BMP, GFR, A1C #### [address] [address] Eosinophils/100 WBC (Bld) 3.3 % Normal 0.0-7.0 [facility] ([place] Comment on above: Performed By: #### C BC, ADIFF, ANEU #### [place] [address] #### BMP, GFR, A1C #### [address] [address] Lymphocytes #/vol (Bld) 1.10 10 3/mcL Normal 0.77-3.85 [facility] ([place]) Comment on above: Performed By: #### C BC, ADIFF, ANEU #### [place] [address] #### BMP, GFR, A1C #### [address] [address] Lymphocytes/100 WBC (Bld) 16.7 % Normal 10.0-50.0 [facility] ([place] Comment on above: Performed By: #### C BC, ADIFF, ANEU #### [address] [address] #### BMP, GFR, A1C #### [address] [address] Monocytes/100 WBC (Bld) 7.7 % Normal 1.7-13.0 [facility] ([place] Comment on above: Performed By: #### C BC, ADIFF, ANEU #### [address] [address] #### BMP, GFR, A1C #### [address] [address] Neutrophils/100 WBC (Bld) 71.8 % Normal 37.0-80.0 [facility] ([place] Comment on above: Performed By: #### C BC, ADIFF, ANEU #### [address] [address] #### BMP, GFR, A1C #### [address] [address] .GFRon 08-07-2018 GFR Non- 83 ml/min/1.73sqm Normal [facility] ([place] Comment on above: Result Comment: GFR Population mean for , Non- Americans Ages 20-29 = 116 mL/min/1.73 sq.m. Ages 30-39 = 107 mL/min/1.73 sq.m. Ages 40-49 = 99 mL/min/1.73 sq.m. Ages 50-59 = 93 mL/min/1.73 sq.m. Ages 60-69 = 85 mL/min/1.73 sq.m. Ages 70+ = 75 mL/min/1.73 sq.m. Chronic Kidney Disease: Less than 60 mL/min/1.73 square meters End Stage Renal Disease: Less than 15 mL/min/1.73 square meters Performed By: #### C BC, ADIFF, ANEU #### [address] [address] #### BMP, GFR, A1C #### [address] [address] GFR 100 ml/min/1.73sqm Normal [facility] ([place] Comment on above: Result Comment: GFR Population mean for , Non- Americans Ages 20-29 = 116 mL/min/1.73 sq.m. Ages 30-39 = 107 mL/min/1.73 sq.m. Ages 40-49 = 99 mL/min/1.73 sq.m. Ages 50-59 = 93 mL/min/1.73 sq.m. Ages 60-69 = 85 mL/min/1.73 sq.m. Ages 70+ = 75 mL/min/1.73 sq.m. Chronic Kidney Disease: Less than 60 mL/min/1.73 square meters End Stage Renal Disease: Less than 15 mL/min/1.73 square meters Performed By: #### C PATRICIA FLEMING, ANEU #### [address] [address] #### BMP, GFR, A1C #### [place] [address] .NEUABSon 08-07-2018 Neutrophils #/vol (Bld) 4.70 10 3/mcL Normal 2.85-6.16 [facility] ([place] Comment on above: Performed By: #### PATRICIA HUYNH, ANEU #### [address] [address] #### BMP, GFR, A1C #### [address] [address] A1Con 08-07-2018 Hemoglobin A1c/Hemoglobin.total mass fraction (Bld) 7.5 % High 4.5-6.2 [facility] ([place] Comment on above: Performed By: #### C BCPATRICIA, ANEU #### [address] [address] #### BMP, GFR, A1C #### [address] [address] BMPon 08-07-2018 Calcium mass conc 9.4 mg/dL Normal 8.4-10.2 [facility] ([place]) Comment on above: Performed By: #### C BC, ADIFF, ANEU #### [address] [address] #### BMP, GFR, A1C #### [address] [address] Chloride molar conc 103 mmol/L Normal 98-107 [facility] ([place] Comment on above: Performed By: #### C BC, ADIFF, ANEU #### [address] [address] #### BMP, GFR, A1C #### [address] [address] CO2 molar conc 25 mmol/L Normal 23-31 [facility] ([place]) Comment on above: Performed By: #### C BC, ADIFF, ANEU #### [address] [address] #### BMP, GFR, A1C #### [address] [address] Creatinine mass conc 0.91 mg/dL Normal 0.70-1.30 [facility] ([place]) Comment on above: Performed By: #### C BC, ADIFF, ANEU #### [address] [address] #### BMP, GFR, A1C #### [address] [address] Electrolyte Balance 9.0 mEq/L Normal [facility] ([place] Comment on above: Performed By: #### C BC, ADIFF, ANEU #### [address] [address] #### BMP, GFR, A1C #### [address] [address] Glucose mass conc 154 mg/dL High 80-115 [facility] ([place] Comment on above: Performed By: #### C BC, ADIFF, ANEU #### [address] [address] #### BMP, GFR, A1C #### [address] [address] Potassium molar conc 4.4 mmol/L Normal 3.5-5.1 [facility] ([place]) Comment on above: Performed By: #### C BC, ADIFF, ANEU #### [address] [address] #### BMP, GFR, A1C #### [address] [address] Sodium molar conc 137 mmol/L Normal 136-145 [facility] ([place] Comment on above: Performed By: #### C BC, ADIFF, ANEU #### [address] [address] #### BMP, GFR, A1C #### [address] [address] Urea nitrogen mass conc 22 mg/dL High 7-18 [facility] ([place]) Comment on above: Performed By: #### C BC, ADIFF, ANEU #### [address] [address] #### BMP, GFR, A1C #### [address] [address] Urea nitrogen/Creatinine mass ratio 24 ratio Normal 7-27 [facility] ([place] Comment on above: Performed By: #### C BC, ADIFF, ANEU #### [address] [address] #### BMP, GFR, A1C #### [address] [address] CBCon 08-07-2018 Erythrocyte distribution width Ratio (RBC) 14.6 % High 11.5-14.5 [facility] ([place]) Comment on above: Performed By: #### C BC, ADIFF, ANEU #### [address] [address] #### BMP, GFR, A1C #### [address] [address] Hematocrit Volume Fraction (Bld) 41.6 % Low 42.0-52.0 [facility] ([place] Comment on above: Performed By: #### C BC, ADIFF, ANEU #### [address] [address] #### BMP, GFR, A1C #### [address] [address] Hemoglobin mass conc (Bld) 13.5 G/dL Low 14.0-18.0 [facility] ([place] Comment on above: Performed By: #### C BC, ADIFF, ANEU #### [address] [address] #### BMP, GFR, A1C #### [place] [address] MCH Entitic mass (RBC) 27.8 pg Normal 27.0-31.2 [facility] ([place]) Comment on above: Performed By: #### C BC, ADIFF, ANEU #### [place] [address] #### BMP, GFR, A1C #### [place] [address] MCHC mass conc (RBC) 32.4 G/dL Normal 31.8-35.4 [facility] ([place]) Comment on above: Performed By: #### C BC, ADIFF, ANEU #### [place] [address] #### BMP, GFR, A1C #### [place] [address] MCV Entitic volume (RBC) 85.6 fL Normal 80.0-94.0 [facility] ([place]) Comment on above: Performed By: #### C BC, ADIFF, ANEU #### [place] [address] #### BMP, GFR, A1C #### [address] [address] Platelet mean volume Entitic volume (Bld) 8.6 fL Normal 7.4-10.4 [facility] ([place]) Comment on above: Performed By: #### C BC, ADIFF, ANEU #### [address] [address] #### BMP, GFR, A1C #### [address] [address] Platelets #/vol (Bld) 237 10 3/mcL Normal 130-400 [facility] ([place] Comment on above: Performed By: #### C BC, ADIFF, ANEU #### [address] [address] #### BMP, GFR, A1C #### [address] [address] RBC #/vol (Bld) 4.86 10 6/mcL Normal 4.04-6.13 [facility] ([place] Comment on above: Performed By: #### C BC, ADIFF, ANEU #### [place] [address] #### BMP, GFR, A1C #### [place] [address] WBC #/vol (Bld) 6.60 10 3/mcL Normal 4.60-10.80 [facility] ([place] Comment on above: Performed By: #### C BC, ADIFF, ANEU #### [place] [address] #### BMP, GFR, A1C #### [place] [address] ANES Janette 12-18-2017 ANES POST HNO ID: [id number] thor: Serge Hawkinservice: AnesthesiologyAuthor Type: PhysicianType: Anesthesia PostOpFiled: 12/18/2017 10:15 AMNote Text:POST ANESTHESIA EVALUATION NOTESERVICE DATE: 12/18/2017SERVICE TIME: 10:14 AMDOB: 1950Vitals: 12/19/1807Temp: 36.2 ?C (97.2 ?F) 36.3 ?C (97.3 ?F) 36 ?C (96.8 ?F) 36.5 ?C (97.7?F) 12/18/1808BP: 134/77 131/81 127/71 125/81 0 5 12/18/1809Pulse: 68 64 63 (!) 59 12/18/1808Resp: 18 18 15 16 0 12/18/1808SpO2: 94% 99% 99% 97%Validated Vital Signs: YesPOST ANES STATUS: No apparent anesthetic complications. The patient isappropriately hydrated with stable respiratory and cardiovascular status.Patient has safe and adequate airway control. The patient has appropriatepain relief and no significant post operative nausea or vomiting. Thepatient has achieved baseline mental status.Further assessment by Anesthesia Service: NoneOther Remarks:SIGNATURE: Serge York MD PATIENT NAME: Avery BarfieldTE: December 18, 2017 : 10:14 AM PAGER/CONTACT #: [facility] ANES PREOPon 12-18-2017 ANES PREOP HNO ID: [id number] thor: Serge Hawkinservice: AnesthesiologyAuthor Type: PhysicianType: Anesthesia PreOpFiled: 12/18/2017 7:47 AMNote Text: ANESTHESIOLOGY DAY OF SURGERY NOTESERVICE DATE: 12/18/2017SERVICE TIME: 7:46 AMDOB: 1950Procedure(s) (LRB):BRONCHOSCOPY FLEXIBLE ADULT (Bilateral)Surgeon(s):Will linda H LeukhardtEstimated body mass index is 37.71 kg/(m2) as calculated from thefollowing: Height as of this encounter: 172.7 cm (5' 8). Weight as of this encounter: 112.5 kg (248 lb).Most recent hematocrit and potassium results:Hematocrit 32.4 12/18/2017Potassium 3.6 12/18/2017ANES DOS/PREOP NOTE:Vitals: 12/17/1822BP: 117/61 122/73 144/69Pulse: 72 62 62Resp: 18 18 18Temp: 36.2 ?C (97.2 ?F) 36.5 ?C (97.7 ?F) 36.2 ?C (97.2 ?F)TempSrc: Oral Temporal Artery Temporal ArterySpO2: 100% 98% 97%Weight:Height:ACTIVE PROBLEM LISTPneumomediastinum (Hcc)TraumaPAST MEDICAL HISTORYDiagnosis Date- Diabetes (HCC)- Hypertension- OsteoarthritisPAST SURGICAL HISTORYProcedure Laterality Date- ORTHOPEDICS SURGERY HX Bilateral knee replacements- ORTHOPEDICS SURGERY HX Carpal tunnel surgery x 3History reviewed. No pertinent family history.Social History:Social HistorySubstance Use Topics- Smoking status: Former Smoker Types: Cigars- Smokeless tobacco: Never Used- Alcohol use 3.0 oz/week 2 Glasses of Wine (5oz) per weekNo current facility-administered medications on file prior to encounter.No current outpatient prescriptions on file prior to encounter.Current Facility-Administered Medications:lactated ringers infusion 125 mL/hr INTRAVENOUS (PACU) ARIA TurnerkfentaNYL 50 mcg/mL 50 mcg injection (SUBLIMAZE) 50 mcg INTRAVENOUS (PACU)PRN Serge SpannkHYDROmorphone 0.5 mg injection (DILAUDID) 0.5 mg INTRAVENOUS (PACU) PRSarah WallxyCODONE IR 5 mg tab(s) (ROXICODONE) 5 mg ORAL (PACU) PRN Serge Spannkondansetron (PF) 4 mg injection (ZOFRAN) 4 mg INTRAVENOUS (PACU) PRSarah Spannkprochlorperazine 10 mg injection (COMPAZINE) 10 mg INTRAVENOUS (PACU) PRSarah Spannkmeperidine (PF) 12.5 mg injection (DEMEROL) 12.5 mg INTRAVENOUS (PACU) PRSarah York[NOV Hold due to Transfer] acetaminophen 975 mg tab(s) (TYLENOL) 975 mgORAL q 6 H Adolfo H Leukhardt 975 mg at 12/17/17 2359[NOV Hold due to Transfer] ketorolac 15 mg injection (TORADOL) 15 mgINTRAVENOUS q 6 H Adolfo H Leukhardt 15 mg at 12/18/17 0549[NOV Hold due to Transfer] gabapentin 300 mg cap(s) (NEURONTIN) 300 mgORAL q 8 H Adolfo H Leukhardt 300 mg at 12/17/172134[MAR Hold due to Transfer] oxyCODONE IR 5-10 mg tab(s) (ROXICODONE) 5-10mg ORAL q 4 H PRN Adolfo Knight Marquez[MAR Hold due to Transfer] morphine 4 mg injection 4 mg INTRAVENOUS q 2 HPRN Adolfo Knight Marquez[MAR Hold due to Transfer] dextrose 5% in LR infusion (D5-LR) 125 mL/hrINTRAVENOUS CONTINUOUS Cindy Leisa Jones Last Rate: 125 mL/hr at12/17/172357 125 mL/hr at 12/17/172357[MAR Hold due to Transfer] iv contrast (radiology procedure) INTRAVENOUSAS DIRECTED PRGrupo Negron MD[MAR Hold due to Transfer] iv contrast (radiology procedure) INTRAVENOUSAS DIRECTED PRN Stephanie Ortiz[MAR Hold due to Transfer] atorvastatin 10 mg tab(s) (LIPITOR) 10 mg ORALDAILY Stephanie Ortiz 10 mg at 12/17/17 114[MAR Hold due to Transfer] lisinopril 10 mg tab(s) (ZESTRIL, PRINIVIL) 10mg ORAL DAILY Stephanie Ortiz 10 mg at 12/17/17 114[MAR Hold due to Transfer] aspirin, enteric coated 81 mg tab(s) (ASPIRIN,ENTERIC COATED) 81 mg ORAL DAILY Stephanie Ortiz 81 mg at 148[MAR Hold due to Transfer] docusate sodium 100 mg cap(s) (COLACE) 100 mgORAL BID Stephanie Ortiz 100 mg at 12/17/172134[MAR Hold due to Transfer] dextrose 40 % 15 g 15 g ORAL PRN Stephanie Cheng[MAR Hold due to Transfer] glucagon 1 mg injection (GLUCAGEN) 1 mgINTRAMUSCULAR PRN Stephanie Montgomery[MAR Hold due to Transfer] dextrose 50% in water 25 mL syringe 12.5 gINTRAVENOUS PRN Stephanie Ortiz[MAR Hold due to Transfer] insulin lispro pen (rapid acting) (HumaLOGKWIKPEN) SUBCUTANEOUS q 6 H Stephanie Ortiz 3 Units at 619204[MAR Hold due to Transfer] enoxaparin 30 mg injection (LOVENOX) 30 mgSUBCUTANEOUS q 12 HR Stephanie (Res) Morzowski 30 mg at 12/17/17 2135Allergies:ALLERGIESAll ergen Reactions- Bactrim [Sulfametho* Rash- Tramadol Unknown- Vicodin [Hydrocodon* IntoleranceDOS EXAM: Adequate NPO status: YesAnesthetic risks, benefits, alternatives, personnel and consent discussed:YesPatient agrees to proceed: YesPrevious Anesthesia: No history of adverse event.Airway Assessment: MP 3; Neck ROM: Limited Extension; Airway Evaluation:Short NeckSymptoms of Sleep Apnea: NoneDentition: Dentures: upperAdditional Physical Exam:Lungs: Patient health status unchanged since recent history and physical.See history and physical for exam findings.Cardiac: Patient health status unchanged since recent history andphysical. See history and physical for exam findings.Additional Pertinent Findings: N/ABlood Products: Not anticipated for this procedure.Anesthetic Plan: General, Standard ASA Monitors and MAC with SedationPain Management Plan: Parenteral or OralASA Class: 3Other Medical Problems: NoneChronic Beta Minda medication administered within 24 hours: N/AI have interviewed and examined the patient. I have reviewed the medicalrecord and/or the pre-anesthesia evaluation, pertinent labs, and testresults.Significant changes in the patient's condition since the History andPhysical, not otherwise documented in primary service progress notes: NoThis contains updated information obtained within 48 hours ofSurgery/Procedure.SIGNAT URE: Serge York MD PATIENT NAME: Avery BarfieldTE: December 18, 2017 : 7:46 AM CSN: [id number] Normal [facility] Basic Panelon 12-18-2017 Creatinine 0.83 mg/dL Normal 0.67-1.17 [facility] Comment on above: Performed By: #### P T ####[place] [address] Anion gap 10 mmol/L Normal 8-16 [facility] Comment on above: Performed By: #### P T ####[place] [address] CO2 26 mmol/L Normal 21-32 [facility] Comment on above: Performed By: #### P T ####[facility] [place] [address] Glucose mass conc 176 mg/dL High 70-99 [facility] Comment on above: Performed By: #### P T ####[facility] [place] [address] Urea nitrogen 18 mg/dL Normal 7-18 [facility] Comment on above: Performed By: #### P T ####[facility] [place] [address] Calcium 8.3 mg/dL Low 8.5-10.1 [facility] Comment on above: Performed By: #### P T ####[place] [address] Chloride 105 mmol/L Normal 98-107 [facility] Comment on above: Performed By: #### P T ####[place] [address] Potassium molar conc 3.6 mmol/L Normal 3.5-5.1 [facility] Comment on above: Performed By: #### P T ####[place] [address] Sodium 137 mmol/L Normal 136-145 [facility] Comment on above: Performed By: #### P T ####[place] [address] CHEST 1 VIEWon 12-18-2017 CHEST 1 VIEW Performed at [place] APPROVED BY: Rangel Duran MD Exam: Portable view of the chest dated 12/18/2017 08:51. Indication: Pneumomediastinum. Comparison: 12/17/2017. Findings:Subcutaneous emphysema redemonstrated within the neck. The lungs are grossly clear. The pneumomediastinum is much less apparent by radiograph. There is no evidence of pneumothorax or pleural effusion. The cardiomediastinal silhouette is within normal limits. IMPRESSION: Resolving pneumomediastinum with persistent subcutaneous emphysema. Normal [facility] CNDSon 12-18-2017 CNDS HNO ID: [id number] thor: Pola Ramirezervice: General SurgeryAuthor Type: ResidentType: Discharge SummariesFiled: 12/18/2017 12:57 PMNote Text:DISCHARGE NOTE (Patient Admitted Less than 48 Hours)SERVICE DATE: 12/18/2017SERVICE TIME: 12:57 PMADMISSION DATE: 12/16/2017DISCHARGE DISPOSITION: Home/Self CareDIET: RegularACTIVITY AFTER DISCHARGE: Resume pre-hospital activityFOLLOW UP CARE REQUIRED: f/u with PCP- f/u with Trauma (Dr. Zayas) PRNDISCHARGE MEDICATIONS (ONLY ACTIVATE WHEN READY TO DISCHARGE):Current Discharge Medication ListSTART taking these medicationsoxyCODONE IR (ROXICODONE) 5 mgTake 5 mg by mouth every 6 hours as needed for Pain.Earliest Fill Date: 12/18/17Qty: 28 tablet Refills: 0Associated Diagnoses:Closed fracture of multiple ribs of right side,initial encounterCONTINUE these medications which have NOT CHANGEDmetFORMIN ER (GLUMETZA) 1,000 mgTake 1,000 mg by mouth twice daily.lisinopril (ZESTRIL, PRINIVIL) 10 mgTake 10 mg by mouth once daily.atorvastatin (LIPITOR) 10 mgTake 10 mg by mouth once daily.glimepiride (AMARYL) 2 mgTake 2 mg by mouth daily with breakfast. Unknown doseaspirin, enteric coated (ASPIRIN, ENTERIC COATED) 81 mgTake 81 mg by mouth once daily.FINAL DIAGNOSIS: trauma - pneumomediastinum, rib fx (R 3,5,6)SIGNATURE: Pola Villareal MD PATIENT NAME: Avery VasquezDATE: December 18, 2017 : 12:57 PM PAGER: [phone] Normal [facility] Glucose Meteron 12-18-2017 Glucose mass conc 149 mg/dL High 70-99 [facility] Comment on above: Result Comment: YESSENIA N OTIFIED Performed By: #### P 8 ####[place] [address] Glucose mass conc 165 mg/dL High 70-99 [facility] Comment on above: Result Comment: YESSENIA N OTIFIED Performed By: #### P 8 ####[place] [address] Glucose mass conc 162 mg/dL High 70-99 [facility] Comment on above: Performed By: #### P T ####[place] [address] Hemogramon 12-18-2017 Erythrocyte distribution width Auto Ratio (RBC) 15.7 % High 11.6-14.4 [facility] Comment on above: Performed By: #### P T ####[place] [address] Erythrocytes (RBC) 3.73 mil/cmm Low 4.63-6.08 [facility] Comment on above: Performed By: #### P T ####[place] [address] Hematocrit (HCT) 32.4 % Low 40.1-51.0 [facility] Comment on above: Performed By: #### P T ####[place] [address] Hemoglobin mass conc (Bld) 10.4 g/dL Low 13.7-17.5 [facility] Comment on above: Performed By: #### P T ####[place] [address] MCH 27.9 pg Normal 25.7-32.2 [facility] Comment on above: Performed By: #### P T ####[place] [address] MCHC mass conc (RBC) 32.1 % Low 32.3-36.5 [facility] Comment on above: Performed By: #### P T ####[place] [address] MCV 86.9 fL Normal 83.2-95.6 [facility] Comment on above: Performed By: #### P T ####[place] [address] Platelet mean volume (PMV) 9.8 fL Normal 8.7-12.0 [facility] Comment on above: Performed By: #### P T ####[address] [address] Platelets 219 thou/cmm Normal 141-365 [facility] Comment on above: Performed By: #### P T ####[address] [address] RDW SD 49.9 fl High 36.1-45.8 [facility] Comment on above: Performed By: #### P T ####[address] [address] WBC (Leukocytes) 6.15 thou/cmm Normal 4.23-9.07 [facility] Comment on above: Performed By: #### P T ####[address] [address] MDRD GFRon 12-18-2017 eGFR (non-black) mL/min/{1.73_m2} Normal >60mL/m in/ 1.73m2 [facility] Comment on above: Result Comment: If t he patient is , multiply the result by 1.210. Performed By: #### P T ####[address] [address] NURSING PROGon 12-18-2017 NURSING PROG HNO ID: [id number] Author: Martha (Rn) YESSENIA Glass Service: Nursing Author Type: Registered Nurse Type: Nursing Progress Note Filed: 12/18/2017 9:03 AM Note Text: CXR done at bedside Normal [facility] OPERATIVE NOon 12-18-2017 OPERATIVE NO HNO ID: [id number] thor: Adolfo Silvaervice: General SurgeryAuthor Type: PhysicianType: Operative ReportFiled: 12/18/2017 9:13 AMNote Text:OPERATIVE REPORTLOG ID: [id number]/Procedure Date: 12/18/2017Incision/Procedur e Start Time: 8:21 AMIncision Close/Procedure End Time: 8:32 AMSurgeon(s)/Proceduralist (s) and Steam Frame Operator(s):Surgeon(s) and Role: * Adolfo Zayas - PrimaryProcedure(s): diagnostic flexible bronchoscopyAnesthesia: GeneralFindings: no evidence of tracheal or bronchial injury, extrinsiccompression of airways secondary to pre-existing mediastinal airEstimated Blood Loss: 0 mlSpecimens: NoneComplications: NonePre-Op/Pre-Procedure Diagnosis: BLUNT CHEST TRAUMA, MEDIASTINAL AIRPost-Op/Post-Procedure Diagnosis: BLUNT CHEST TRAUMA, MEDIASTINAL AIRIndication for Procedure: Avery Vasquez is a 67 year old who presented with blunt chest trauma 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 History, exam, laboratoryevaluation and imaging were notable for mediastinal air, subcutaneousemphysema and rib fractures. The risks, benefits and alternatives to theprocedure with discussed with the patient, family and/or the patient'smedical power of commonwealth attorney. The risks discussed include but are not limitedto potential complications of anesthesia, infection, bleeding,postoperative pain, need for a blood transfusion, injury to adjacentstructures, need for additional operation or procedure and other factors.All questions were answered and consent was obtained from the patient.Description of Procedure:After a pre-operative huddle the patient was taken to the operating room.After induction of general anesthesia, the patient was positioned, preppedand the surgical safety checklist was performed.The bronchoscope was introduced through the endotracheal tube. The distaltrachea was visualized to the yoly. The right upper lobe bronchus andsegments were visualized. The bronchus intermedius demonstrated signs ofexterior compression from the mediastinal air. The takeoff of the rightlower lobe was more acute due to extrinsic compression, but patent andvisualized to the segmental level without evidence of injury. The rightmiddle lobe was cannulated readily through the bronchus to the segmentallevel without evidence of injury. Pictures were captured of the carinaand bronchus intermediusThe bronchoscope was withdrawn from the right and advanced into the leftmain stem bronchus. The scope was advanced into the left upper and leftlower lobe bronchus and segments without additional evidence of injury.The bronchoscope was then returned to the distal trachea. Againintermittent extrinsic compression was also noted from the mediastinalair. The mid and distal trachea were visualized during withdrawal of theendotracheal tube to the level of the vocal chords and was withoutevidence of injury.I was present, scrubbed and participated throughout the entire procedure.Sponge, and instrument counts were reported correct. A post-operativechest x-ray was ordered for the recovery area.Adolfo Zayas, MDDepartment of General SurgerySection of Trauma, Surgical Critical Care, and Acute Care Surgery Normal [facility] PROGRESSon 12-18-2017 PROGRESS HNO ID: [id number] thor: Cindy (Res) PatricioenService: General SurgeryAuthor Type: ResidentType: Progress NotesFiled: 12/18/2017 8:31 AMNote Text:Trauma Surgery Progress NoteSERVICE DATE: 12/18/2017SUBJECTIVE:NAEON. Pain is much better today.Tolerating diet DIET NPONausea NoEmesis NoFlatus YesBowel movement YesPain Controlled YesAmbulating YesOBJECTIVE:Vitals:Temp (24hrs), Av.5 ?C (97.7 ?F), Min:36.2 ?C (97.2 ?F), Max:36.8 ?C(98.2 ?F)BP 122/73 Pulse 62 Temp 36.5 ?C (97.7 ?F) (Temporal Artery) Resp 18 Ht 172.7 cm (5' 8) Wt 112.5 kg (248 lb) SpO2 97% BMI 37.71 kg/m2O2 Therapy: Room AirIANDO:Date 12/17/17 07 - 12/18/17 0659 12/18/17 07 - 12/19/17 0659Shift 1021-7400 3822-2589 1861-5387 24 Hour Total 4912-8615 0777-44140710-4470 24 Hour TotalINTAKE PO 522 394 6959 PO 357 937 8706 IV 0870 976 4022 D5 LR 530 530 LR 1000 1000 Shift Total 1420 660 530 2610OUTPUT Urine 2 3 502 507 Void (ml) 500 500 Urine Not Saved 2 3 2 7 # of BMs Number of BMs 1 x 1 x Shift Total 2 3 502 507Weight (kg) 112.5 112.5 112.5 112.5 112.5 112.5 112.5 112.5MEDICATIONSCurrent Facility-Administered Medications:acetaminophen 975 mg tab(s) (TYLENOL) 975 mg ORAL q 6 Hketorolac 15 mg injection (TORADOL) 15 mg INTRAVENOUS q 6 Hgabapentin 300 mg cap(s) (NEURONTIN) 300 mg ORAL q 8 HoxyCODONE IR 5-10 mg tab(s) (ROXICODONE) 5-10 mg ORAL q 4 H PRNmorphine 4 mg injection 4 mg INTRAVENOUS q 2 H PRNdextrose 5% in LR infusion (D5-LR) 125 mL/hr INTRAVENOUS CONTINUOUSiv contrast (radiology procedure) INTRAVENOUS DIRECTED PRNiv contrast (radiology procedure) INTRAVENOUS DIRECTED PRNatorvastatin 10 mg tab(s) (LIPITOR) 10 mg ORAL DAILYlisinopril 10 mg tab(s) (ZESTRIL, PRINIVIL) 10 mg ORAL DAILYaspirin, enteric coated 81 mg tab(s) (ASPIRIN, ENTERIC COATED) 81 mg ORALDAILYdocusate sodium 100 mg cap(s) (COLACE) 100 mg ORAL BIDdextrose 40 % 15 g 15 g ORAL PRNOrglucagon 1 mg injection (GLUCAGEN) 1 mg INTRAMUSCULAR PRNOrdextrose 50% in water 25 mL syringe 12.5 g INTRAVENOUS PRNinsulin lispro pen (rapid acting) (HumaLOG KWIKPEN) SUBCUTANEOUS q 6 Henoxaparin 30 mg injection (LOVENOX) 30 mg SUBCUTANEOUS q 12 HRLabs:Recent Labs 12/17/1802NA 137 139 141K 3.6 4.1 3.7CHLOR 105 106 108*CO2 26 25 27BUN 18 12 11CREAT 0.83 0.67 0.73GLUC 176* 119* 112*ANION 10 12 10CA 8.3* 9.2 8.8WBC 6.15 8.80 8.52HB 10.4* 11.9* 11.4*HCT 32.4* 38.0* 35.2*PLT 219 246 233INR -- -- 1.04Exam:GENERAL: No distress, AlertNEURO: AANDOx3, CN II-XII grossly intactHEENT: normocephalic, atraumaticLUNGS: Unlabored breathingCARDIAC: Regular rate and rhythm as aboveABDOMEN: Soft, non-tender, non-distendedEXTREMITIES: DELGADO, No deformities, No edemaSKIN: Skin color, texture, turgor normal, No rashes or lesionsASSESSMENT AND PLAN:Active Hospital Problems Diagnosis Date Noted- Trauma 12/16/2017 Overview Note: Added automatically from request for surgery [id number]- Pneumomediastinum (HCC) 12/16/201767 year old male attacked by cow x2, most recently thrown against gate andcharged several times. No LOC. Right 3,5,6 rib fractures,pneumomediastinu m, subcutaneous air in neck.- NPO for bronchoscopy today- IS- NPCS c/s pending- stable on RA- tele- pulm consultAbiganaima Jones MDGeneral Surgery, PGY-1April 2017 6:01 AMPager: [phone] Normal [facility] Basic Panelon 12-17-2017 Creatinine 0.67 mg/dL Normal 0.67-1.17 [facility] Comment on above: Performed By: #### P T ####[place] [address] Anion gap 12 mmol/L Normal 8-16 [facility] Comment on above: Performed By: #### P T ####[place] [address] CO2 25 mmol/L Normal 21-32 [facility] Comment on above: Performed By: #### P T ####[address] [address] Calcium 9.2 mg/dL Normal 8.5-10.1 [facility] Comment on above: Performed By: #### P T ####[address] [address] Urea nitrogen 12 mg/dL Normal 7-18 [facility] Comment on above: Performed By: #### P T ####[address] [address] Glucose mass conc 119 mg/dL High 70-99 [facility] Comment on above: Performed By: #### P T ####[place] [address] Chloride 106 mmol/L Normal 98-107 [facility] Comment on above: Performed By: #### P T ####[address] [address] Potassium molar conc 4.1 mmol/L Normal 3.5-5.1 [facility] Comment on above: Performed By: #### P T ####[facility] [place], [place] [address] Sodium 139 mmol/L Normal 136-145 [facility] Comment on above: Performed By: #### P T ####[facility] [place], [place] [address] CHEST 1 VIEWon 12-17-2017 CHEST 1 VIEW Performed at [place] APPROVED BY: Rangel Duran MD Exam: Portable view of the chest dated 12/17/2017 07:12. Indication: Traumatic injury. Rib fractures. Comparison: 12/16/2017. Findings:Subcutaneous emphysema is present within the neck. No new parenchymal consolidation appreciated. There is mild opacity at the lung bases likely reflecting atelectasis. Subtle lucency along the aortic contour reflects the known pneumomediastinum. There is no evidence of pneumothorax or pleural effusion. The cardiomediastinal silhouette is within normal limits. ] Fractures are better depicted by recent CT. IMPRESSION: Persistent pneumomediastinum and subcutaneous emphysema. Normal [facility] CONSULTon 12-17-2017 CONSULT HNO ID: [id number] thor: Hood Savage: Pulmonary DiseaseAuthor Type: PhysicianType: ConsultsFiled: 12/17/2017 1:52 PMNote Text:Pulmonary Consult NoteSERVICE DATE: 12/17/2017SERVICE TIME: 1:21 PM?REASON FOR ADMISSION:REASON FOR CONSULT:Pneumomediastinum S/P traumatic injuryHISTORY OF PRESENT ILLNESS:Patient is a 67 year old man with a past medical history as below whopresented with right rib fractures and pneumomediastinum after beingcharged by a cow and being thrown against a gate.He does not recall any of the particulars of the accident since ithappened so quickly. He is not sure about yelling, gasping, coughing, orstraining against a closed glottis during this time.His only complaint when seen was right chest wall pain where he hasseveral broken ribs and not being able to eat.Patient denies SOB/TORRES, acute or chronic cough, acute or chronic sputumproduction, hemoptysis, heartburn/acid reflux, unanticipated weight loss,fever/chills, and night sweats.REVIEW OF SYSTEMS:GENERAL: Negative for fevers, chills, sweats, and lethargyNECK: Negative for lumps, goiter, pain and significant neck swellingNEURO: No history of headaches, syncope, paralysis, seizures or tremorsRESPIRATORY: Negative for cough, hemoptysis, wheezing, dyspnea orshortness of breath. Positive for chest wall painCARDIOVASCULAR: Negative for chest pain, leg swelling, or palpitationsGI: No nausea, vomiting, diarrhea, heartburn or reflux symptoms??PAST MEDICAL HISTORYPAST MEDICAL HISTORYDiagnosis Date- Diabetes (HCC)- Hypertension- OsteoarthritisPAST SURGICAL HISORYPAST SURGICAL HISTORYProcedure Laterality Date- ORTHOPEDICS SURGERY HX Bilateral knee replacements- ORTHOPEDICS SURGERY HX Carpal tunnel surgery x 3PAST FAMILY HISTORYNo family history on file.SOCIAL HISTORYSocial HistorySubstance Use Topics- Smoking status: Former Smoker Types: Cigars- Smokeless tobacco: Never Used- Alcohol use 3.0 oz/week 2 Glasses of Wine (5oz) per week?ALLERGIESALLERGIESAll ergen Reactions- Bactrim [Sulfametho* Rash- Tramadol Unknown- Vicodin [Hydrocodon* IntoleranceHOME MEDICATIONS:Prescriptions Prior to Admission:metFORMIN ER (GLUMETZA) 500 mg 24 hr tablet Take 1,000 mg by mouth twicedaily. Disp: Rfl: 12/16/2017 at Unknown timelisinopril (ZESTRIL, PRINIVIL) 10 mg tablet Take 10 mg by mouth oncedaily. Disp: Rfl: 12/16/2017 at Unknown timeatorvastatin (LIPITOR) 10 mg tablet Take 10 mg by mouth once daily. Disp:Rfl: 12/16/2017 at Unknown timeglimepiride (AMARYL) 1 mg tablet Take 2 mg by mouth daily with breakfast.Unknown dose Disp: Rfl: 12/16/2017 at Unknown timeaspirin, enteric coated (ASPIRIN, ENTERIC COATED) 81 mg EC tablet Take 81mg by mouth once daily. Disp: Rfl: 12/16/2017 at Unknown timeHOSPITAL MEDICATIONS:Current Facility-Administered Medications:iv contrast (radiology procedure) INTRAVENOUS DIRECTED PRN Melinda (Res)Rosemary Negron contrast (radiology procedure) INTRAVENOUS DIRECTED PRN Stephanie(Res) Angelatorvastatin 10 mg tab(s) (LIPITOR) 10 mg ORAL DAILY Stephanie (Res) Aphdvoab99 mg at 12/17/17 1148lisinopril 10 mg tab(s) (ZESTRIL, PRINIVIL) 10 mg ORAL DAILY Stephanie Machado 10 mg at 12/17/17 1148aspirin, enteric coated 81 mg tab(s) (ASPIRIN, ENTERIC COATED) 81 mg ORALDAILY Stephanie Ortiz 81 mg at 12/17/17 1148morphine 1-2 mg injection 1-2 mg INTRAVENOUS q 2 H PRN Stephanie Machado 2 mg at 12/17/17 0323docusate sodium 100 mg cap(s) (COLACE) 100 mg ORAL BID Stephanie Machado 100 mg at 12/17/17 1153dextrose 40 % 15 g 15 g ORAL PRN Stephanie OrtizOrglucagon 1 mg injection (GLUCAGEN) 1 mg INTRAMUSCULAR PRN Stephanie Day)AngelOrdextrose 50% in water 25 mL syringe 12.5 g INTRAVENOUS PRN Stephanie Machadolactated ringers infusion 125 mL/hr INTRAVENOUS CONTINUOUS Stephanie Machado Last Rate: 125 mL/hr at 12/17/17 0523 125 mL/hr at 12/17/17 0523insulin lispro pen (rapid acting) (HumaLOG KWIKPEN) SUBCUTANEOUS q 6 HAndbeth Ortiz 1 Units at 12/17/17 1211enoxaparin 30 mg injection (LOVENOX) 30 mg SUBCUTANEOUS q 12 HR Lupe Ortiz 30 mg at 12/17/17 1149?LABSABG:Invalid input(s): [id number]:Glucose (mg/dL)Date Value12/17/2017 119 Potassium (mEq/L)Date Value12/17/2017 4.1 Sodium (mEq/L)Date Value12/17/2017 139 Chloride (mEq/L)Date Value12/17/2017 106 CO2 (mEq/L)Date Value12/17/2017 25 Creatinine (mg/dL)Date Value12/17/2017 0.67 BUN (mg/dL)Date Value12/17/2017 12 Anion Gap (no units)Date Value12/17/2017 12 Calcium (mg/dL)Date Value12/17/2017 9.2 CBC:HGB (g/dL)Date Value12/17/2017 11.904 11.4 Hematocrit (%)Date Value12/17/2017 38.004 35.2 WBC (thou/cmm)Date Value12/17/2017 8.8004 8.52 I personally reviewed the patient's most recent chest X-rays and chestCT's myself.?VITALS:BP 137/91 Pulse 80 Temp 36.4 ?C (97.5 ?F) (Oral) Resp 16 Ht 172.7cm (5' 8) Wt 112.5 kg (248 lb) SpO2 98% BMI 37.71 kg/s6BPWEODAU EXAM:GENERAL: AAOx3, pleasant, resting in bed side chair, NADNEURO: CN II-XII intact, speech clear, but with a nasal quality to hisvoice which patient reports came about nearly 48 hours after this accidentHEENT: NCAT, EOMI, no lymphadenopathy appreciated, subcutaneous emphysemapalpatedRESPIRATO RY: Clear to auscultation bilaterally anteriorly , even/unlaboredat rest, no wheezing, accessory muscle use, pursed lip breathing orconversational dysnea. Patient is on room air.CARDIOVASCULAR: Normal S1S2, RRR. No murmur, rub, or gallop. No edema.GI: Soft, nondistended, nontender, bowel sounds present [id number]: no clubbing or cyanosis. [id number]: warm, dry, intact, no rash or bruising in the chest wall or back?IMPRESSION:S/P trauma with broken right ribsPneumomediastinum with subcutaneous emphysemaPLAN:Today's chest X-ray does not show any worsening of either hispneumomediastinum or subcutaneous emphysema.Will arrange for a bronchoscopic airway exam on Tuesday (12/19/17).Patient can eat from our standpoint.Discussed with patient and patient's in detail.All questions were answered and concerns addressed.Discussed with General Surgery resident.SIGNATURE:Hood Shelton MD PATIENT NAME:Avery BarfieldTE:December 17, 2017 :1:21 PM PAGER/CONTACT #:[phone]? Normal [facility] Glucose Meteron 12-17-2017 Glucose mass conc 172 mg/dL High 70-99 [facility] Comment on above: Performed By: #### P T ####[address] [address] Glucose mass conc 122 mg/dL High 70-99 [facility] Comment on above: Result Comment: RN Grupo OTIFIED Performed By: #### P T ####[address] [address] Glucose mass conc 152 mg/dL High 70-99 [facility] Comment on above: Result Comment: RN Grupo OTIFIED Performed By: #### P T ####[place] [address] Glucose mass conc 134 mg/dL High 70-99 [facility] Comment on above: Result Comment: YESSENIA Lombardo OTIFIED Performed By: #### G LMET ####[address] [address] Hemogramon 12-17-2017 Erythrocyte distribution width Auto Ratio (RBC) 15.9 % High 11.6-14.4 [facility] Comment on above: Performed By: #### C BC1 ####[address] [address] Erythrocytes (RBC) 4.33 mil/cmm Low 4.63-6.08 [facility] Comment on above: Performed By: #### C BC1 ####[address] [address] Hematocrit (HCT) 38.0 % Low 40.1-51.0 [facility] Comment on above: Performed By: #### C BC1 ####[facility] [place], [place] [address] Hemoglobin mass conc (Bld) 11.9 g/dL Low 13.7-17.5 [facility] Comment on above: Performed By: #### C BC1 ####[address] [address] MCH 27.5 pg Normal 25.7-32.2 [facility] Comment on above: Performed By: #### C BC1 ####[address] [address] MCHC mass conc (RBC) 31.3 % Low 32.3-36.5 [facility] Comment on above: Performed By: #### C BC1 ####[address] [address] MCV 87.8 fL Normal 83.2-95.6 [facility] Comment on above: Performed By: #### C BC1 ####[address] [address] Platelet mean volume (PMV) 10.3 fL Normal 8.7-12.0 [facility] Comment on above: Performed By: #### C BC1 ####[address] [address] Platelets 246 thou/cmm Normal 141-365 [facility] Comment on above: Performed By: #### C BC1 ####[address] [address] RDW SD 50.5 fl High 36.1-45.8 [facility] Comment on above: Performed By: #### C BC1 ####[address] [address] WBC (Leukocytes) 8.80 thou/cmm Normal 4.23-9.07 [facility] Comment on above: Performed By: #### C BC1 ####[address] [address] MDRD GFRon 12-17-2017 eGFR (non-black) mL/min/{1.73_m2} Normal >60mL/m in/ 1.73m2 [facility] Comment on above: Result Comment: If t he patient is , multiply the result by 1.210. Performed By: #### P T ####[place] [id number] PROGRESSon 12-17-2017 PROGRESS HNO ID: [id number] thor: Adolfo AlbrighttService: General SurgeryAuthor Type: PhysicianType: Progress NotesFiled: 12/17/2017 2:02 PMNote Text:Trauma Surgery Progress NoteSERVICE DATE: 12/17/2017SUBJECTIVE:Compla ining of not being able to drink anything. Some rib pain with deepinspiration.Tolerating diet DIET NPONausea NoEmesis NoFlatus NoBowel movement NoPain Controlled moderatelyAmbulating YesOBJECTIVE:Vitals:Temp (24hrs), Av.9 ?C (98.4 ?F), Min:36.2 ?C (97.2 ?F), Max:37.4 ?C(99.3 ?F)BP 131/84 Pulse 84 Temp 36.8 ?C (98.2 ?F) (Temporal Artery) Resp 18 Ht 172.7 cm (5' 8) Wt 112.5 kg (248 lb) SpO2 96% BMI 37.71 kg/m2O2 Therapy: Room AirIANDO:Date 12/16/17 07 - 12/17/17 0659 12/17/17 07 - 12/18/17 0659Shift 5204-6000 7038-3726 9083-7490 24 Hour Total 9950-9962 3208-83910097-7647 24 Hour TotalINTAKE IV 1000 1000 LR 1000 1000 Shift Total 1000 1000OUTPUT Urine 800 800 Void (ml) 400 400 Urine Not Saved 400 400 Shift Total 800 800Weight (kg) 112.5 112.5 112.5 112.5 112.5 112.5 112.5MEDICATIONSCurrent Facility-Administered Medications:iv contrast (radiology procedure) INTRAVENOUS DIRECTED PRNiv contrast (radiology procedure) INTRAVENOUS DIRECTED PRNatorvastatin 10 mg tab(s) (LIPITOR) 10 mg ORAL DAILYlisinopril 10 mg tab(s) (ZESTRIL, PRINIVIL) 10 mg ORAL DAILYaspirin, enteric coated 81 mg tab(s) (ASPIRIN, ENTERIC COATED) 81 mg ORALDAILYmorphine 1-2 mg injection 1-2 mg INTRAVENOUS q 2 H PRNdocusate sodium 100 mg cap(s) (COLACE) 100 mg ORAL BIDdextrose 40 % 15 g 15 g ORAL PRNOrglucagon 1 mg injection (GLUCAGEN) 1 mg INTRAMUSCULAR PRNOrdextrose 50% in water 25 mL syringe 12.5 g INTRAVENOUS PRNlactated ringers infusion 125 mL/hr INTRAVENOUS CONTINUOUSinsulin lispro pen (rapid acting) (HumaLOG KWIKPEN) SUBCUTANEOUS q 6 Henoxaparin 30 mg injection (LOVENOX) 30 mg SUBCUTANEOUS q 12 HRLabs:Recent Labs 12/16/1818NA 139 141K 4.1 3.7CHLOR 106 108*CO2 25 27BUN 12 11CREAT 0.67 0.73GLUC 119* 112*ANION 12 10CA 9.2 8.8WBC 8.80 8.52HB 11.9* 11.4*HCT 38.0* 35.2*PLT 246 233INR -- 1.04Exam:GENERAL: No distress, AlertNEURO: AANDOx3, CN II-XII grossly intactHEENT: normocephalic, atraumaticLUNGS: Unlabored breathingCARDIAC: Regular rate and rhythm as aboveABDOMEN: Soft, non-tender, non-distendedEXTREMITIES: DELGADO, No deformities, No edemaSKIN: Skin color, texture, turgor normal, No rashes or lesionsASSESSMENT AND PLAN:Active Hospital Problems Diagnosis Date Noted- Pneumomediastinum (HCC) 12/16/201767 year old male attacked by cow x2, most recently thrown against gate andcharged several times. No LOC. Right 3,5,6 rib fractures,pneumomediastinu m, subcutaneous air in neck.- NPO for possible bronchoscopy today- IS- NPCS c/s pending- AM CXR pending- stable on RA- teleSIGNATURE: Cindy Jones MD PATIENT NAME: Avery BarfieldTE: December 17, 2017 : 7:13 AM Pager: [phone] NoteI evaluated the patient and personally participated in the holguin components.I agree with the resident's findings and plan as documented and havediscussed the case and management of the patient's care with the resident.Added Toradol, Neurontin, scheduled tylenol and PRN oxycodone for paincontrol, added for bronchoscopy in OR tomorrow. If no evidence of injurythen discharge home tomorrow afternoon provided satisfactory pain control.If evidence of injury then proceed with bronch and intervention by [employer].D/C tele and continuous pulse ox.Adolfo Zayas, [facility]ITALepartment of General SurgerySection of Trauma, Surgery Critical Care, and Acute Care Surgery Normal [facility] Basic Panelon 12-16-2017 Creatinine 0.73 mg/dL Normal 0.67-1.17 [facility] Comment on above: Performed By: #### P 8 ####[place] [address] Urea nitrogen 11 mg/dL Normal 7-18 [facility] Comment on above: Performed By: #### P 8 ####[place] [address] Anion gap 10 mmol/L Normal 8-16 [facility] Comment on above: Performed By: #### P 8 ####[place] [address] Calcium 8.8 mg/dL Normal 8.5-10.1 [facility] Comment on above: Performed By: #### P 8 ####[facility] [place] [address] CO2 27 mmol/L Normal 21-32 [facility] Comment on above: Performed By: #### P 8 ####[facility] [place] [address] Glucose mass conc 112 mg/dL High 70-99 [facility] Comment on above: Performed By: #### P 8 ####[place] [address] Chloride 108 mmol/L High 98-107 [facility] Comment on above: Performed By: #### P 8 ####[address] [address] Potassium molar conc 3.7 mmol/L Normal 3.5-5.1 [facility] Comment on above: Performed By: #### P 8 ####[facility] [place], [place] [address] Sodium 141 mmol/L Normal 136-145 [facility] Comment on above: Performed By: #### P 8 ####[facility] [place], [place] [address] CT ABDOMEN AND PELVIS WITH C ONTRASTon 12-16-2017 CT ABDOMEN AND PELVIS WITH CONTRAST Performed at [facility] APPROVED BY: Douglas Rod MD Exam Title: CT OF THE ABDOMEN AND PELVIS WITH INTRAVENOUS CONTRAST EXAM DATE:12/16/2017 20:27 Clinical Indication/History: Trauma. Abdominal pain COMPARISON: None Technique: A CT of the abdomen and pelvis With Intravenous contrast. CT radiation and contrast dose information are discussed on a separate chest CT report FINDINGS:CHEST BASE: Discussed on a separate chest CT report LIVER: Normal BILIARY TRACT AND GALLBLADDER: There is a large gallstone within the gallbladder measuring 2.5 cm. PANCREAS:Normal SPLEEN:Normal ADRENAL GLANDS:Normal KIDNEYS AND RENAL COLLECTING SYSTEMS: There are bilateral renal parapelvic cysts. There is no hydronephrosis. LYMPH NODES AND RETROPERITONEUM:Normal VESSELS:Normal GI TRACT AND MESENTERY: Diverticulosis of the sigmoid colon. SOFT TISSUES AND MUSCULOSKELETAL:Normal BLADDER:Normal PELVIC ORGANS:Normal IMPRESSION: There is no acute process involving the abdomen or pelvis. Normal [facility] CT CERVICAL SPINE W/O CONTRA STon 12-16-2017 CT CERVICAL SPINE W/O CONTRAST Performed at [facility] APPROVED BY: Theo Wells MD EXAMINATION: CT CERVICAL SPINE W/O CONTRAST HISTORY: Right-sided neck pain, trauma pneumomediastinum TECHNIQUE: CT of the cervical spine without IV contrast. Spiral, high resolution axial images were obtained from the skull base to the cervicothoracic junction with sagittal and coronal planar reconstructions.MQ: [id number] CT Dose-Length Product (DLP): 443 mGy*cmCT Dose Reduction Employed: None indicated COMPARISON: None. RESULT: Counting reference: Craniocervical junction. Alignment: Alignment is anatomic. Craniocervical junction: Craniocervical junction is normal. Osseous structures/fracture: No evidence of a lytic or blastic process in the visualized spine. No evidence of acute or chronic fracture. Cervical soft tissues: Extensive subcutaneous air is seen at the level of the neckModerate degree of bilateral carotid calcifications Degenerative changes: Advanced degree multilevel degenerative changes with disc space narrowing, endplate degenerative changes, marginal spurs, uncovertebral spurs and facet arthropathy contributing to central and foraminal stenosis most prominent C4-C7 levels. IMPRESSION: 1. No acute fracture or subluxation.2.Extensive subcutaneous air is seen at the level of the neck Normal [facility] CT CHEST WITH CONTRASTon CT CHEST WITH CONTRAST Performed at [facility] APPROVED BY: Douglas Rod MD EXAMINATION: CHEST CT WITH CONTRAST Indication: Recent trauma. Pain in the chest and abdomen. Technique: Spiral CT acquisition of the chest from the thoracic inlet to the upper abdomen following IV contrast.MQ: [id number]_5Contrast: 150 mL IV Omnipaque 300-total dose CT chest, abdomen, and pelvisCT Dose-Length Product: 1286 mGy*cm-total dose CT chest, abdomen, and pelvisCT Dose Reduction Employed: 3. mAs or kVp was manually adjusted based on either the patient size or age. Comparison: Type of study and date/time RESULT: Limitations: None. Lines, tubes, and devices: None. Lung parenchyma and pleura: There is mild subsegmental atelectasis at both lower lobes. Otherwise, the lungs are clear. There is no visible pneumothorax. Thoracic inlet, heart, and mediastinum: There is abundant pneumomediastinum. Gas is also noted at the base of the neck. The heart is not enlarged. There is no adenopathy. Bones and soft tissues: Severe degenerative type changes are noted at the glenohumeral joints. There is an acute appearing fracture involving the right fifth rib laterally. Adjacent fractures of undetermined age are noted at the third and sixth ribs on the right. There is subcutaneous emphysema. Upper abdomen: Discussed on a separate abdominal CT report IMPRESSION: Acute right fifth rib fracture. Possible acute fractures in the adjacent ribs as well. Subcutaneous emphysema which is worst at the base of the neck. There is also pneumomediastinum. Normal [facility] ED NOTEon 12-16-2017 ED NOTE HNO ID: [id number] Author: Rell CostaRn) Salvador, YESSENIA Service: Emergency Medicine Author Type: Registered Nurse Type: ED Notes Filed: 12/16/2017 8:20 PM Note Text: Pt to ct [facility] ED NOTE HNO ID: [id number] Author: Rell CostaRn) YESSENIA Franco Service: Emergency Medicine Author Type: Registered Nurse Type: ED Notes Filed: 12/16/2017 7:33 PM Note Text: Called trasnport for ct [facility] ED NOTE HNO ID: [id number] Author: Emir CostaRn) YESSENIA Tejeda Service: Emergency Medicine Author Type: Registered Nurse Type: ED Notes Filed: 12/16/2017 6:56 PM Note Text: #20 IV @ L AC in place. [facility] ED NOTE HNO ID: [id number] thor: Rebecca CostaRn) JARON Bergervice: Emergency MedicineAuthor Type: Registered NurseType: ED NotesFiled: 12/16/2017 5:05 PMNote Text:Patient transfer from [facility] for surgery consult. Was knockedover by cow twice this week. +LOC with incident three days ago. +rightsided rib pain from incident yesterday morning. +rib fractures.+pneumomediastin um. Patient states pain is well controlled at this time. AAND O x 3. Denies CP or SOB. [facility] ED NOTE HNO ID: [id number] thor: Preet CostaRnJARON Rogelervice: (none)Author Type: Registered NurseType: ED NotesFiled: 12/16/2017 4:51 PMNote Text:Bed: ED-31Expected date: 12/16/17Expected time:Means of [facility]Comments:Startk-S ummit: Man vs Cow [facility] ED PROV NOTEon 12-16-2017 ED PROV NOTE HNO ID: [id number] thor: NADINE Mistryervice: Emergency MedicineAuthor Type: PhysicianType: ED Provider NotesFiled: 12/17/2017 12:02 AMNote Text:ED Provider NotePatient Name: Avery Immanuel MarsMRN: [id number] DATE: 12/16/17HistoryPatient presents with:Rib InjuryHPI Comments: 67 yom presents with multiple rib fractures andpneumomediastinum after having 2 injuries by farm animals earlier thisweek. He was knocked over by one of his cows 3 days ago. There was a LOCwith that episode. He was injured again by a cow 1 day ago. He reportsthat he was thrown to the ground and charged multiple times. He presentedto an OSH earlier today for evaluation. He underwent CT of the head andchest. He was found to have multiple right sided rib fractures,pneumomediastinu m as well as subcutaneous air in his upper cervicalregion. He endorses some hoarseness of his voice. He denies chest pain,abdominal pain, shortness of breath. According to records he is on dailyASA. He has been ambulatory since these injuries. [facility] He reports that he has been taking ibuprofen forhis pain. Currently his pain is controlled.No past medical history on file.No past surgical history on file.No family history on file.Social HistorySocial History Main Topics- Smoking status: Not on file- Smokeless tobacco: Not on file- Alcohol use Not on file- Drug use: Not on file- Sexual activity: Not on fileALLERGIESAllergen Reactions- Bactrim [Sulfametho* Rash- Tramadol Unknown- Vicodin [Hydrocodon* IntoleranceReview of SystemsConstitutional: Negative for chills and fever.HENT: Negative for congestion, rhinorrhea and sore throat.Eyes: Negative for pain and discharge.Respiratory: Negative for cough and shortness of breath.Cardiovascular: Negative for chest pain.Gastrointestinal: Negative for abdominal pain, nausea and vomiting.Genitourinary: Negative for dysuria.Musculoskeletal: Negative for back pain and neck pain. Right sided chest wall painSkin: Negative for pallor and wound. Abrasions and mild bruisingNeurological: Negative for light-headedness, numbness and headaches.Physical ExamBP 156/93 Pulse 79 Temp (Src) 97.2 (Temporal Artery) Resp 18 Ht 5'8 (1.73m) Wt 246 lb (111.6kg) SpO2 97% BMI 37.41 kg/(m2).Physical ExamConstitutional: No distress.HENT:Head: Normocephalic and atraumatic.Mouth/Throat: No oropharyngeal exudate.Eyes: Conjunctivae and EOM are normal. Pupils are equal, round, andreactive to light. Right eye exhibits no discharge. Left eye exhibits nodischarge.Neck: Normal range of motion. No tracheal deviation present.Cardiovascular: Intact distal pulses. Exam reveals no gallop and nofriction rub.Pulmonary/Chest: Effort normal. No stridor. No respiratory distress. Heexhibits tenderness.Lungs CTABNo retractions, no increased work of breathingRight sided chest wall tenderness to palpationAbdominal: Soft. There is no tenderness.Skin: Skin is warm. He is not diaphoretic. No erythema.Nursing note and vitals reviewed.Diagnostic TestingED Labs Ordered and Reviewed - No data to displayProceduresMedical Decision Making / ED CourseED CourseOthers' DocumentationComment By TimeAttending NoteI evaluated the patient and personally participated in the holguin components. I personally saw and examined the patient. I reviewed the resident's orPA's note. I agree with the resident's or PA's assessment and plan unlessotherwise noted. I was present for the holguin portions of the procedure.HPI: 67 year old MALE presents after he was hit by 2 cows in the past 1week the last episode was yesterday. It is a 1500 pound cow that struckhim in the chest. The cows have been aggressive this year he works on [employer] and a cow ran into him hitting him in his chest and threw him helanded backwards and hit his head he has pain in his right upper back aswell as neck. He was transferred from [place] for trauma evaluation. hedid loose consciousness.Vitals BP 156/93 Pulse 79 Temp 36.2 ?C (97.2 ?F) (Temporal Artery) Resp 18 Ht 172.7 cm (5' 8) Wt 111.6 kg (246 lb) SpO2 97% BMI 37.4kg/m2Gen NAD Calm verbalNeuro right cheek abrasion contusion PERRLA no focal neuro deficits MAENeck low c spine ttp without stepoffsCVS RRRPulm CTABAbd Soft NT ND +BSChest no crepitus or abrasions. Mild ttp right ribsBack nontender T/L spine. Mild right scapular ttpExt abrasion right kneeMedical decision making:Overall well appearing. Patient was transferred here after he had a CT ofhis brain and chest found to have nondisplaced right rib fractures as wellas subcutaneous air or pneumomediastinum. images on a disk being sent toradiology. Plan to add on CT of cervical spine as well as CT of abdomenand pelvis.Trauma consult.Barbra Grider MD6:23 PMApril 2017 Barbra Grider MD 12/16 1826Patient was seen and evaluated by me and the attending. [facility]. He had multiple traumasover the past week and was diagnosed with multiple right sided ribfracture, pneumomediastinum and subcutaneous air in cervical region.In the ED, he was afebrile and hemodynamically stable.Record from OSH show that Chest CT scan and head CT scan were obtained.Abdominal CT scan and cervical spine CT scans obtained.Trauma was consulted.CT scans showed no acute process in abdomen/pelvis. Scans redemonstratedthe subcutaneous emphysema in cervical region. Esophagram was alsoobtained and was negative for acute process.Trauma accepted patient to SICU for further evaluation and management.He was admitted in stable condition to Trauma Service.Encounter Diagnosis ICD-10-CM1. Closed fracture of multiple ribs of right side, initial [id number]. Subcutaneous emphysema, initial encounter ([facility]) T79.7XXA3. Pneumomediastinum ([facility]) J98.2PlanThe Patient was ADMITTED TO: Regular Nursing Floor.Condition at time of disposition: stableSIGNATURE: Melinda Negron MDDacia (Res) Fidelina Negron12/16/17 2132Dacia (Res) Fidelina Negron12/16/17 2134Critical CareI spent a total of 35 minutes of critical care time in the evaluation andmanagement of this patient. This was necessary to treat or preventdeterioration of the following condition(s): Multiple trauma, which thepatient had and/or has a high probability of suddenly developing. Thepatient received Consultation by Trauma during the time that critical carewas provided.I discussed the plan of care with the Resident and agreewith the findings documented. Critical care time excludes separatelybilled procedures.Niko Mistry MD12/17/17 0002 Normal [facility] ESOPHAGUSon 12-16-2017 ESOPHAGUS Performed at [place] APPROVED BY: Douglas Rod MD EXAM TITLE: ESOPHAGUS DATE: 12/16/2017 20:45 INDICATION: Trauma with pneumomediastinum. Assess for esophageal perforation. COMPARISON: None. FINDINGS: A total of 0.4 minutes of fluoroscopy time was used. 20 images were obtained. Water soluble contrast was administered. The esophagus demonstrates normal contour, caliber, and motility. There is no extravasation or other mucosal abnormality to indicate esophageal disruption. Incidentally, subcutaneous emphysema is noted near the base of the neck. IMPRESSION: Normal esophagram. Subcutaneous emphysema noted near the base of the neck. Normal [facility] HISTORY PHYSICALon 8 HISTORY PHYSICAL HNO ID: [id number] thor: Adolfo AlbrighttService: TraumaAuthor Type: PhysicianType: HANDPFiled: 12/16/2017 10:00 PMNote Text:TRAUMA HANDP CCHSARRIVAL DATE: December 16, 2017ARRIVAL TIME: 6:53 PMCATEGORY: Level 3INJURY DATE: 3 days agoINJURY TIME: afternoonSubjectiveThilauren is a 67 year old White male. GCS at Scene was 15.HPI/CHIEF COMPLAINT: 67 YOM knocked over by cow 3 days ago. Yesterdaywas knocked over and rammed by a cow several times. He has right chestpain.BRIEF DESCRIPTION OF INJURIES: Right rib fractures and pneumomediastinum.LAST FLUIDS/MEAL: earlier today.ALLERGIESAllergen Reactions- Bactrim [Sulfametho* Rash- Tramadol Unknown- Vicodin [Hydrocodon* Intolerance(Not in a hospital admission)DATE OF LAST TETANUS: unknownThere is no immunization history on file for this patient.PAST MEDICAL HISTORYDiagnosis Date- Diabetes (HCC)- Hypertension- OsteoarthritisPAST SURGICAL HISTORYProcedure Laterality Date- ORTHOPEDICS SURGERY HX Bilateral knee replacements- ORTHOPEDICS SURGERY HX Carpal tunnel surgery x 3Social History Marital status: Spouse name: Years of education: Number of children:Social History Main Topics Smoking status: Former Smoker Packs/day: 0.00 Years: 0.00 Types: Cigars Smokeless status: Never Used Alcohol use: Yes 3.0 oz/week 2 Glasses of Wine (5oz) per week Drug use: NoROS:Is the patient having any pain? Yes LOCATION: Right chest.Constitutional: Sitting in bed, NAD, A@Ox3Eye/Ear/Nose: NegativeRespiratory: Right chest pain.Cardiovascular: NegativeGI/Liver/Biliary: NegativeGenitourinary: NegativePsychiatric: NegativeNeurologic: NegativeMusculoskeletal: NegativeIntegument: NegativeEndocrine: NegativeHeme/Lymph: NegativeObjectivePRIMARY SURVEYAIRWAY: PatentBREATHING: Breath sounds equalCIRCULATION: PT/DP Palpable, Radials Palpable, Femoral PalpableDISABILITY: Eye: 4=Spontaneous Verbal: 5=Oriented and Converses Motor: 6=Obeys Commands Total GCS: 15=4 Resp Rate: 10 to 29=4 Syst BP: > than 89=4REVISED TRAUMA SCORE: 12EXPOSE / ENVIRONMENT: Not Applicable PROCEDURES: NoneSECONDARY SURVEYVITALS: [id number]: 156/93Pulse: 79Resp: 18Temp: 36.2 ?C (97.2 ?F)TempSrc: Temporal ArterySpO2: 97%Weight: 111.6 kg (246 lb)Height: 172.7 cm (5' 8)NEURO: Alert AND Oriented x 3, GCS 15, Cranial Nerves II-XII Intact, MovesAll Extremities, Strength SymmetricalHEENT: Eyes: PERRL, conjunctiva/corneas without lesions, EOM intact, Ears:Canals without blood or CSF drainage, TMs clear, external ears withoutlacerations, Nose: Septum midline, no crepitus with motion, Throat: Oralmucosa without lacerations, teeth in place, tongue without lacerations,Abrasion right forehead. Crepitus in bilateral neck.NECK: No midline pain with palpation, No pain with active ROM, Tracheamidline, Crepitus bilaterallyRESPIRATORY: No abrasions or contusions, No crepitus, Equal ExcursionCARDIOVASCULAR: Heart rate regularABDOMEN: Non-distended, Non-tenderness or peritoneal signs, No masses ororganomegalyPELVIC/PERIN EAL: Pelvis stable to palpationBACK/SPINE: Thoracolumbar spinal column non-tender, No step off ordeformity noted, No external injury notedEXTREMITIES: DELGADO, no injuries. RADIOLOGICAL/OTHER TEST DATA:CT head - no acute traumatic injuriesCT c-spine - no acute traumatic injuries, subcutaneous air.CT chest - acute right 5th rib fracture. Indeterminate age fracturesright 3rd and 6th rib. Pneumomediastinum.CT abd/pelvis - no acute traumatic injuries.Esophagram - normal esophagus, no evidence of leak.PRIOR TO ARRIVAL: CT of chest and headIMAGESLABS: CBC, Coags, BMP, Mg, PhosLiver Function, Amylase, AND LipaseCardiac EnzymesABGsAssessment/Plan DIAGNOSES:67 YOM attacked by cow x2, most recently thrown against gate and chargedseveral times. No LOC. Right 3,5,6 rib fractures, pneumomediastinum,subcutan eous air in neck.- Admit 5200.- He has pneumomediastinum and subQ air in neck - concerning for bronchialtree injury.- Will obtain CT c-spine, CT chest/abdomen/pelvis with IV contrast.Neuro: AANDOx3, pain control with IV medication. C-collar cleared.CV: RRR, BP and HR WNL.Resp: Satting well on RA. May need to have bronchoscopy to evaluate forinjury - will obtain NPCS consult. IS. AM CXR.GI: NPO for procedure tomorrow, Esophagram negative.Gu: Monitor urine output.Heme: Hgb 11.4 on admission. Monitor.Endo: glucose slightly elevated, BMP WNL. Will monitor.ID: Afebrile and no leukocytosis. Currently no indication forantibiotics. MonitorAccess: PIVsTREATMENT/EVALUATION PLANS: Admit to floorED DISPOSITION: To [facility] CENTERFINAL INJURIES: No new injuries were identified after physical examinationand review of final radiological reading(s) of all studies.SIGNATURE: Stephanie Kc MD PATIENT NAME: Avery VasquezDATE: December 16, 2017 : 6:52 PM PAGER/CONTACT #:Trauma Attending NoteI have personally seen and evaluated this patient and participated in thekey components of this encounter.I discussed the management of this case with the surgery resident team andindependently confirmed the findings and plan of care as documented eitherattached or in their separate note from today.Any corrections or additional notes are made as needed.I evaluated the patient on December 16, 2017 and 1925 pm.Assessment and Plan:Avery Vasquez is a 67 year old male evaluated following a Level 3activation for blunt large animal trauma and injury from OSH ([place])The patient was evaluated according to ATLS protocols.Injuries and diagnoses are notable for:Rib fractures, pneumomediastinum, subcutaneous emphysemaEsophagram negative, Pulm consult for bronchoscopy with possibility ofstent if injuryAdolfo Zayas, LEONIDESepartment of General SurgerySection of Trauma, Surgery Critical Care, and Acute Care Surgery Normal [facility] HOSPon 12-16-2017 HOSP Patient:Avery Vasquez MRN: Height:5' 8(1.727 m)Weight:248 lb (112.492 kg)Outpatient Medications as of 12/18/17:metFORMIN ER (GLUMETZA) 500 mg 24 hr tabletlisinopril (ZESTRIL, PRINIVIL) 10 mg tabletatorvastatin (LIPITOR) 10 mg tabletglimepiride (AMARYL) 1 mg tabletaspirin, enteric coated (ASPIRIN, ENTERIC COATED) 81 mg EC tabletAdmission/Clinic Administered Medications as of 12/18/17:lactated ringers infusionfentaNYL 50 mcg/mL 50 mcg injection (SUBLIMAZE)HYDROmorphone 0.5 mg injection (DILAUDID)oxyCODONE IR 5 mg tab(s) (ROXICODONE)ondansetron (PF) 4 mg injection (ZOFRAN)prochlorperazine 10 mg injection (COMPAZINE)meperidine (PF) 12.5 mg injection (DEMEROL)acetaminophen 975 mg tab(s) (TYLENOL)ketorolac 15 mg injection (TORADOL)gabapentin 300 mg cap(s) (NEURONTIN)oxyCODONE IR 5-10 mg tab(s) (ROXICODONE)morphine 4 mg injectiondextrose 5% in LR infusion (D5-LR)iv contrast (radiology procedure)iv contrast (radiology procedure)atorvastatin 10 mg tab(s) (LIPITOR)lisinopril 10 mg tab(s) (ZESTRIL, PRINIVIL)aspirin, enteric coated 81 mg tab(s) (ASPIRIN, ENTERIC COATED)docusate sodium 100 mg cap(s) (COLACE)dextrose 40 % 15 gglucagon 1 mg injection (GLUCAGEN)dextrose 50% in water 25 mL syringeinsulin lispro pen (rapid acting) (HumaLOG KWIKPEN)enoxaparin 30 mg injection (LOVENOX)Problem List:Pneumomediastinum (HCC) [J98.2]Trauma [T14.90XA]Allergies:Bactri m [Sulfamethoxazole-Trimetho prim]TramadolVicodin [Hydrocodone-Acetaminophen ]Date Verified: 12/18/17Lab ValuesLab Value Units Date High LowPOTA* 3.6 mEq/L 12/18/2017 5.1 3.5HEMA* 32.4 % 12/18/2017 51.0 40.1Progress Notes ():Preet Duncan, RN, RN 12/16/2017 4:51 PM SignedBed: ED-31Expected date: 12/16/17Expected time:Means of arrival: [facility]Comments:Startk-S ummit: Man vs Clarencenellie MD Cheo, MD 12/17/2017 12:02 AM SignedED Provider NotePatient Name: Avery VasquezMRN: [id number] DATE: 12/16/17HistoryPatient presents with:Rib InjuryHPI Comments: 67 yom presents with multiple rib fractures and pneumomediastinumafter having 2 injuries by farm animals earlier this week. He was knocked nelda one of his cows 3 days ago. There was a LOC with that episode. He was injuredagain by a cow 1 day ago. He reports that he was thrown to the ground andcharged multiple times. He presented to an OSH earlier today for evaluation. Heunderwent CT of the head and chest. He was found to have multiple right sidedrib fractures, pneumomediastinum as well as subcutaneous air in his uppercervical region. He endorses some hoarseness of his voice. He denies chestpain,abdominal pain, shortness of breath. According to records he is on dailyASA. He has been ambulatory since these injuries. [facility]. He reports that he has been taking ibuprofen for his pain.Currently his pain is controlled.No past medical history on file.No past surgical history on file.No family history on file.Social HistorySocial History Main Topics- Smoking status: Not on file- Smokeless tobacco: Not on file- Alcohol use Not on file- Drug use: Not on file- Sexual activity: Not on fileALLERGIESAllergen Reactions- Bactrim [Sulfametho* Rash- Tramadol Unknown- Vicodin [Hydrocodon* IntoleranceReview of SystemsConstitutional: Negative for chills and fever.HENT: Negative for congestion, rhinorrhea and sore throat.Eyes: Negative for pain and discharge.Respiratory: Negative for cough and shortness of breath.Cardiovascular: Negative for chest pain.Gastrointestinal: Negative for abdominal pain, nausea and vomiting.Genitourinary: Negative for dysuria.Musculoskeletal: Negative for back pain and neck pain. Right sided chest wall painSkin: Negative for pallor and wound. Abrasions and mild bruisingNeurological: Negative for light-headedness, numbness and headaches.Physical ExamBP 156/93 Pulse 79 Temp (Src) 97.2 (Temporal Artery) Resp 18 Ht 5' 8(1.73m) Wt 246 lb (111.6kg) SpO2 97% BMI 37.41 kg/(m2).Physical ExamConstitutional: No distress.HENT:Head: Normocephalic and atraumatic.Mouth/Throat: No oropharyngeal exudate.Eyes: Conjunctivae and EOM are normal. Pupils are equal, round, and reactive tolight. Right eye exhibits no discharge. Left eye exhibits no discharge.Neck: Normal range of motion. No tracheal deviation present.Cardiovascular: Intact distal pulses. Exam reveals no gallop and no frictionrub.Pulmonary/Ches t: Effort normal. No stridor. No respiratory distress. He exhibitstenderness.Lungs CTABNo retractions, no increased work of breathingRight sided chest wall tenderness to palpationAbdominal: Soft. There is no tenderness.Skin: Skin is warm. He is not diaphoretic. No erythema.Nursing note and vitals reviewed.Diagnostic TestingED Labs Ordered and Reviewed - No data to displayProceduresMedical Decision Making / ED CourseED CourseOthers' DocumentationComment By TimeAttending NoteI evaluated the patient and personally participated in the holguin components. Ipersonally saw and examined the patient. I reviewed the resident's or PA'snote. I agree with the resident's or PA's assessment and plan unless otherwisenoted. I was present for the holguin portions of the procedure.HPI: 67 year old MALE presents after he was hit by 2 cows in the past 1 week thelast episode was yesterday. [facility] 1500 [facility] 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 [place] he did loose consciousness.Vitals BP 156/93 Pulse 79 Temp 36.2 ?C (97.2 ?F) (Temporal Artery) Resp 18 Ht 172.7 cm (5' 8) Wt 111.6 kg (246 lb) SpO2 97% BMI 37.4 kg/m2Gen NAD Calm verbalNeuro right cheek abrasion contusion PERRLA no focal neuro deficits MAENeck low c spine ttp without stepoffsCVS RRRPulm CTABAbd Soft NT ND +BSChest no crepitus or abrasions. Mild ttp right ribsBack nontender T/L spine. Mild right scapular ttpExt abrasion right kneeMedical decision making:Overall well appearing. Patient was transferred here after he had a CT of hisbrain and chest found to have nondisplaced right rib fractures as well assubcutaneous air or pneumomediastinum. images on a disk being sent to radiology.Plan to add on CT of cervical spine as well as CT of abdomen and pelvis.Traumaconsult.Marie Grider MD6:23 PMApril 2017 Barbra Grider MD 12/16 1826Patient was seen and evaluated by me and the attending. [facility]. He had multiple traumas overthe past week and was diagnosed with multiple right sided rib fracture,pneumomediastinum and subcutaneous air in cervical region.In the ED, he was afebrile and hemodynamically stable.Record from OSH show that Chest CT scan and head CT scan were obtained.Abdominal CT scan and cervical spine CT scans obtained.Trauma was consulted.CT scans showed no acute process in abdomen/pelvis. Scans redemonstrated thesubcutaneous emphysema in cervical region. Esophagram was also obtained and wasnegative for acute process.Trauma accepted patient to SICU for further evaluation and management.He was admitted in stable condition to Trauma Service.Encounter Diagnosis ICD-10-CM1. Closed fracture of multiple ribs of right side, initial encounter S22.41XA2. Subcutaneous emphysema, initial encounter ([facility]) T79.7XXA3. Pneumomediastinum ([facility]) J98.2PlanThe Patient was ADMITTED TO: Regular Nursing Floor.Condition at time of disposition: stableSIGNATURE: Melindaprerna Negron, MDDacia (Res) Jamil, IJIbzmyrth14/13/18 2132Dacia (Res) Jamil, UEAkiwfdll33/13/18 2134Critical CareI spent a total of 35 minutes of critical care time in the evaluation andmanagement of this patient. This was necessary to treat or prevent deteriorationof the following condition(s): Multiple trauma, which the patient had and/or hasa high probability of suddenly developing. The patient received Consultation byTrauma during the time that critical care was provided.I discussed the plan ofcare with the Resident and agree with the findings documented. Critical caretime excludes separately billed procedures.Barbra Grider, MAG[facility] HOSPITALriley Grider MD12/17/17 0002Previous VersionRebecca Berg RN, RN 12/16/2017 5:05 PM Signed[facility] Was knocked over bycow twice this week. +LOC with incident three days ago. +right sided rib painfrom incident yesterday morning. +rib fractures. +pneumomediastinum. Patientstates pain is well controlled at this time. A AND O x 3. Denies CP or SOB.Adolfo Zayas MD 12/16/2017 10:00 PM SignedTRAUMA HANDP [facility]ERSARRIVAL DATE: December 16, 2017ARRIVAL TIME: 6:53 PMCATEGORY: Level 3INJURY DATE: 3 days agoINJURY TIME: afternoonSubjectiveThilauren is a 67 year old White male. GCS at Scene was 15.HPI/CHIEF COMPLAINT: 67 YOM knocked over by cow 3 days ago. Yesterday wasknocked over and rammed by a cow several times. He has right chest pain.BRIEF DESCRIPTION OF INJURIES: Right rib fractures and pneumomediastinum.LAST FLUIDS/MEAL: earlier today.ALLERGIESAllergen Reactions- Bactrim [Sulfametho* Rash- Tramadol Unknown- Vicodin [Hydrocodon* Intolerance(Not in a hospital admission)DATE OF LAST TETANUS: unknownThere is no immunization history on file for this patient.PAST MEDICAL HISTORYDiagnosis Date- Diabetes (HCC)- Hypertension- OsteoarthritisPAST SURGICAL HISTORYProcedure Laterality Date- ORTHOPEDICS SURGERY HX Bilateral knee replacements- ORTHOPEDICS SURGERY HX Carpal tunnel surgery x 3Social History Marital status: Spouse name: Years of education: Number of children:Social History Main Topics Smoking status: Former Smoker Packs/day: 0.00 Years: 0.00 Types: Cigars Smokeless status: Never Used Alcohol use: Yes 3.0 oz/week 2 Glasses of Wine (5oz) per week Drug use: NoROS:Is the patient having any pain? Yes LOCATION: Right chest.Constitutional: Sitting in bed, NAD, A@Ox3Eye/Ear/Nose: NegativeRespiratory: Right chest pain.Cardiovascular: NegativeGI/Liver/Biliary: NegativeGenitourinary: NegativePsychiatric: NegativeNeurologic: NegativeMusculoskeletal: NegativeIntegument: NegativeEndocrine: NegativeHeme/Lymph: NegativeObjectivePRIMARY SURVEYAIRWAY: PatentBREATHING: Breath sounds equalCIRCULATION: PT/DP Palpable, Radials Palpable, Femoral PalpableDISABILITY: Eye: 4=Spontaneous Verbal: 5=Oriented and Converses Motor: 6=Obeys Commands Total GCS: 15=4 Resp Rate: 10 to 29=4 Syst BP: > than 89=4REVISED TRAUMA SCORE: 12EXPOSE / ENVIRONMENT: Not Applicable PROCEDURES: NoneSECONDARY SURVEYVITALS: 237177AJ: 156/93Pulse: 79Resp: 18Temp: 36.2 ?C (97.2 ?F)TempSrc: Temporal ArterySpO2: 97%Weight: 111.6 kg (246 lb)Height: 172.7 cm (5' 8)NEURO: Alert AND Oriented x 3, GCS 15, Cranial Nerves II-XII Intact, Moves AllExtremities, Strength SymmetricalHEENT: Eyes: PERRL, conjunctiva/corneas without lesions, EOM intact, Ears:Canals without blood or CSF drainage, TMs clear, external ears withoutlacerations, Nose: Septum midline, no crepitus with motion, Throat: Oral mucosawithout lacerations, teeth in place, tongue without lacerations, Abrasion rightforehead. Crepitus in bilateral neck.NECK: No midline pain with palpation, No pain with active ROM, Trachea midline,Crepitus bilaterallyRESPIRATORY: No abrasions or contusions, No crepitus, Equal ExcursionCARDIOVASCULAR: Heart rate regularABDOMEN: Non-distended, Non-tenderness or peritoneal signs, No masses ororganomegalyPELVIC/PERIN EAL: Pelvis stable to palpationBACK/SPINE: Thoracolumbar spinal column non-tender, No step off or deformitynoted, No external injury notedEXTREMITIES: DELGADO, no injuries. RADIOLOGICAL/OTHER TEST DATA:CT head - no acute traumatic injuriesCT c-spine - no acute traumatic injuries, subcutaneous air.CT chest - acute right 5th rib fracture. Indeterminate age fractures right 3rdand 6th rib. Pneumomediastinum.CT abd/pelvis - no acute traumatic injuries.Esophagram - normal esophagus, no evidence of leak.PRIOR TO ARRIVAL: CT of chest and headIMAGESLABS: CBC, Coags, BMP, Mg, PhosLiver Function, Amylase, AND LipaseCardiac EnzymesABGsAssessment/Plan DIAGNOSES:67 YOM attacked by cow x2, most recently thrown against gate and charged severaltimes. No LOC. Right 3,5,6 rib fractures, pneumomediastinum, subcutaneous airin neck.- Admit 5200.- He has pneumomediastinum and subQ air in neck - concerning for bronchial treeinjury.- Will obtain CT c-spine, CT chest/abdomen/pelvis with IV contrast.Neuro: AANDOx3, pain control with IV medication. C-collar cleared.CV: RRR, BP and HR WNL.Resp: Satting well on RA. May need to have bronchoscopy to evaluate for injury- will obtain NPCS consult. IS. AM CXR.GI: NPO for procedure tomorrow, Esophagram negative.Gu: Monitor urine output.Heme: Hgb 11.4 on admission. Monitor.Endo: glucose slightly elevated, BMP WNL. Will monitor.ID: Afebrile and no leukocytosis. Currently no indication for antibiotics.MonitorAccess: PIVsTREATMENT/EVALUATION PLANS: Admit to floorED DISPOSITION: [facility] INJURIES: No new injuries were identified after physical examination andreview of final radiological reading(s) of all studies.SIGNATURE: Stephanie Kc MD PATIENT NAME: Avery VasquezDATE: December 16, 2017 : 6:52 PM PAGER/CONTACT #:Trauma Attending NoteI have personally seen and evaluated this patient and participated in the keycomponents of this encounter.I discussed the management of this case with the surgery resident team andindependently confirmed the findings and plan of care as documented eitherattached or in their separate note from today.Any corrections or additional notes are made as needed.I evaluated the patient on December 16, 2017 and 1925 pm.Assessment and Plan:Avery Vasquez is a 67 year old male evaluated following a Level 3 activation forblunt large animal trauma and injury from OSH ([place])The patient was evaluated according to ATLS protocols.Injuries and diagnoses are notable for:Rib fractures, pneumomediastinum, subcutaneous emphysemaEsophagram negative, Pulm consult for bronchoscopy with possibility of stent ifinjuryWilliam Antonia Zayas, LEONIDESepartment of General SurgerySection of Trauma, Surgery Critical Care, and Acute Care SurgeryPrevious VersionLonaveen Tejeda, RN, RN 12/16/2017 6:56 PM Signed #20 IV @ L AC in place.Rell Franco, RN, RN 12/16/2017 7:33 PM [facility]igned [facility], [facility], RN 12/16/2017 8:20 PM Signed Pt to [facility]) 12/16/2017 9:40 PM SignedMEDICATION HISTORYPatient Name:Iqra VasquezMRN: [id number]: 1950Source of history:Patient: Reliability of source: Appears reliable, clearlyidentified: Medication nameMedication Nonadherence Identified: No barriers notedThe above information represents the best possible medication history: YesAdditional comments: Unable to verify with pt's pharmacy. Verified with pt.Allergies:ALLERGIESAlle rgen Reactions- Bactrim [Sulfametho* Rash- Tramadol Unknown- Vicodin [Hydrocodon* IntolerancePreferred Pharmacy: [facility] Medications:Prior to Admission medications as of 12/16/17 2140Medication Sig Last Dose TakingmetFORMIN ER (GLUMETZA) 500 mg 24 hr tablet Take 1,000 mg by mouth twice daily. 12/16/2017 at Unknown time Yeslisinopril (ZESTRIL, PRINIVIL) 10 mg tablet Take 10 mg by mouth once daily.12/16/2017 at Unknown time Yesatorvastatin (LIPITOR) 10 mg tablet Take 10 mg by mouth once daily. 12/16/2017 atUnknown time Yesglimepiride (AMARYL) 1 mg tablet Take 1 mg by mouth daily with breakfast.Unknown dose 12/16/2017 at Unknown time Yesaspirin, enteric coated (ASPIRIN, ENTERIC COATED) 81 mg EC tablet Take 81 mg bymouth once daily. 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 Some rib pain with deepinspiration.Tolerating diet DIET NPONausea NoEmesis NoFlatus NoBowel movement NoPain Controlled moderatelyAmbulating YesOBJECTIVE:Vitals:Temp (24hrs), Av.9 ?C (98.4 ?F), Min:36.2 ?C (97.2 ?F), Max:37.4 ?C (99.3?F)BP 131/84 Pulse 84 Temp 36.8 ?C (98.2 ?F) (Temporal Artery) Resp 18 Ht172.7 cm (5' 8) Wt 112.5 kg (248 lb) SpO2 96% BMI 37.71 kg/m2O2 Therapy: Room AirIANDO:Date 12/16/17 07 - 12/17/17 0659 12/17/17 07 - 12/18/17 0659Shift 6791-1352 5474-4571 7922-8206 24 Hour Total 5562-6312 4953-4077 2300-764103 Hour TotalINTAKE IV 1000 1000 LR 1000 1000 Shift Total 1000 1000OUTPUT Urine 800 800 Void (ml) 400 400 Urine Not Saved 400 400 Shift Total 800 800Weight (kg) 112.5 112.5 112.5 112.5 112.5 112.5 112.5MEDICATIONSCurrent Facility-Administered Medications:iv contrast (radiology procedure) INTRAVENOUS DIRECTED PRNiv contrast (radiology procedure) INTRAVENOUS DIRECTED PRNatorvastatin 10 mg tab(s) (LIPITOR) 10 mg ORAL DAILYlisinopril 10 mg tab(s) (ZESTRIL, PRINIVIL) 10 mg ORAL DAILYaspirin, enteric coated 81 mg tab(s) (ASPIRIN, ENTERIC COATED) 81 mg ORAL DAILYmorphine 1-2 mg injection 1-2 mg INTRAVENOUS q 2 H PRNdocusate sodium 100 mg cap(s) (COLACE) 100 mg ORAL BIDdextrose 40 % 15 g 15 g ORAL PRNOrglucagon 1 mg injection (GLUCAGEN) 1 mg INTRAMUSCULAR PRNOrdextrose 50% in water 25 mL syringe 12.5 g INTRAVENOUS PRNlactated ringers infusion 125 mL/hr INTRAVENOUS CONTINUOUSinsulin lispro pen (rapid acting) (HumaLOG KWIKPEN) SUBCUTANEOUS q 6 Henoxaparin 30 mg injection (LOVENOX) 30 mg SUBCUTANEOUS q 12 HRLabs:Recent Labs 12/16/1818NA 139 141K 4.1 3.7CHLOR 106 108*CO2 25 27BUN 12 11CREAT 0.67 0.73GLUC 119* 112*ANION 12 10CA 9.2 8.8WBC 8.80 8.52HB 11.9* 11.4*HCT 38.0* 35.2*PLT 246 233INR -- 1.04Exam:GENERAL: No distress, AlertNEURO: AANDOx3, CN II-XII grossly intactHEENT: normocephalic, atraumaticLUNGS: Unlabored breathingCARDIAC: Regular rate and rhythm as aboveABDOMEN: Soft, non-tender, non-distendedEXTREMITIES: DELGADO, No deformities, No edemaSKIN: Skin color, texture, turgor normal, No rashes or lesionsASSESSMENT AND PLAN:Active Hospital Problems Diagnosis Date Noted- Pneumomediastinum (HCC) 12/16/201767 year old male attacked by cow x2, most recently thrown against gate andcharged several times. No LOC. Right 3,5,6 rib fractures, pneumomediastinum,subcutan eous air in neck.- NPO for possible bronchoscopy today- IS- NPCS c/s pending- AM CXR pending- stable on RA- teleSIGNATURE: Cindy Jones MD PATIENT NAME: Avery BarfieldTE: December 17, 2017 : 7:13 AM Pager: [phone] NoteI evaluated the patient and personally participated in the holguin components.I agree with the resident's findings and plan as documented and have discussedthe case and management of the patient's care with the resident.Added Toradol, Neurontin, scheduled tylenol and PRN oxycodone for pain control,added for bronchoscopy in OR tomorrow. If no evidence of injury then dischargehome tomorrow afternoon provided satisfactory pain control. If evidence ofinjury then proceed with bronch and intervention by pulm on Tuesday.D/C tele and continuous pulse ox.Adolfo Zyaas, [facility]OSPITALepartment of General SurgerySection of Trauma, Surgery Critical Care, and Acute Care SurgeryPrevious Pratik Shelton MD 12/17/2017 1:52 PM AddendumPulmonary Consult NoteSERVICE DATE: 12/17/2017SERVICE TIME: 1:21 PM?REASON FOR ADMISSION:REASON FOR CONSULT:Pneumomediastinum S/P traumatic injuryHISTORY OF PRESENT ILLNESS:Patient is a 67 year old man with a past medical history as below who presentedwith right rib fractures and pneumomediastinum after being charged by a cow andbeing thrown against a gate.He does not recall any of the particulars of the accident since it happened soquickly. He is not sure about yelling, gasping, coughing, or straining against aclosed glottis during this time.His only complaint when seen was right chest wall pain where he has severalbroken ribs and not being able to eat.Patient denies SOB/TORRES, acute or chronic cough, acute or chronic sputumproduction, hemoptysis, heartburn/acid reflux, unanticipated weight loss,fever/chills, and night sweats.REVIEW OF SYSTEMS:GENERAL: Negative for fevers, chills, sweats, and lethargyNECK: Negative for lumps, goiter, pain and significant neck swellingNEURO: No history of headaches, syncope, paralysis, seizures or tremorsRESPIRATORY: Negative for cough, hemoptysis, wheezing, dyspnea or shortness ofbreath. Positive for chest wall painCARDIOVASCULAR: Negative for chest pain, leg swelling, or palpitationsGI: No nausea, vomiting, diarrhea, heartburn or reflux symptoms??PAST MEDICAL HISTORYPAST MEDICAL HISTORYDiagnosis Date- Diabetes (HCC)- Hypertension- OsteoarthritisPAST SURGICAL HISORYPAST SURGICAL HISTORYProcedure Laterality Date- ORTHOPEDICS SURGERY HX Bilateral knee replacements- ORTHOPEDICS SURGERY HX Carpal tunnel surgery x 3PAST FAMILY HISTORYNo family history on file.SOCIAL HISTORYSocial HistorySubstance Use Topics- Smoking status: Former Smoker Types: Cigars- Smokeless tobacco: Never Used- Alcohol use 3.0 oz/week 2 Glasses of Wine (5oz) per week?ALLERGIESALLERGIESAll ergen Reactions- Bactrim [Sulfametho* Rash- Tramadol Unknown- Vicodin [Hydrocodon* IntoleranceHOME MEDICATIONS:Prescriptions Prior to Admission:metFORMIN ER (GLUMETZA) 500 mg 24 hr tablet Take 1,000 mg by mouth twice daily.Disp: Rfl: 12/16/2017 at Unknown timelisinopril (ZESTRIL, PRINIVIL) 10 mg tablet Take 10 mg by mouth once daily.Disp: Rfl: 12/16/2017 at Unknown timeatorvastatin (LIPITOR) 10 mg tablet Take 10 mg by mouth once daily. Disp: Rfl:12/16/2017 at Unknown timeglimepiride (AMARYL) 1 mg tablet Take 2 mg by mouth daily with breakfast.Unknown dose Disp: Rfl: 12/16/2017 at Unknown timeaspirin, enteric coated (ASPIRIN, ENTERIC COATED) 81 mg EC tablet Take 81 mg bymouth once daily. Disp: Rfl: 12/16/2017 at Unknown timeHOSPITAL MEDICATIONS:Current Facility-Administered Medications:iv contrast (radiology procedure) INTRAVENOUS DIRECTED PRN Melinda (Res)Rosemary Negron contrast (radiology procedure) INTRAVENOUS DIRECTED PRN Stephanie (Res)Angelatorvastatin 10 mg tab(s) (LIPITOR) 10 mg ORAL DAILY Stephanie (Res) Angel 10 mgat 12/17/17 1148lisinopril 10 mg tab(s) (ZESTRIL, PRINIVIL) 10 mg ORAL DAILY Stephanie (Res)Angel 10 mg at 12/17/17 1148aspirin, enteric coated 81 mg tab(s) (ASPIRIN, ENTERIC COATED) 81 mg ORAL DAILYStephanie (Leisa) Morzowswilfrido 81 mg at 12/17/17 1148morphine 1-2 mg injection 1-2 mg INTRAVENOUS q 2 H PRN Stephanie Ortiz 2mg at 12/17/17 0323docusate sodium 100 mg cap(s) (COLACE) 100 mg ORAL BID Stephanie (Ana Juareszowski 100mg at 12/17/17 1153dextrose 40 % 15 g 15 g ORAL PRN Stephanie (Leisa) AngelOrglucagon 1 mg injection (GLUCAGEN) 1 mg INTRAMUSCULAR PRN Stephanie (Leisa) AngelOrdextrose 50% in water 25 mL syringe 12.5 g INTRAVENOUS PRN Stephanie (Ana Ortizlactated ringers infusion 125 mL/hr INTRAVENOUS CONTINUOUS Stephanie (Ana OrtizLast Rate: 125 mL/hr at 12/17/17 0523 125 mL/hr at 12/17/17 0523insulin lispro pen (rapid acting) (HumaLOG KWIKPEN) SUBCUTANEOUS q 6 H Lupe Ortiz 1 Units at 12/17/17 1211enoxaparin 30 mg injection (LOVENOX) 30 mg SUBCUTANEOUS q 12 HR Stephanie Machado 30 mg at 12/17/17 1149?LABSABG:Invalid input(s): N2CFMQSKHFO:Glucose (mg/dL)Date Value12/17/2017 119 Potassium (mEq/L)Date Value12/17/2017 4.1 Sodium (mEq/L)Date Value12/17/2017 139 Chloride (mEq/L)Date Value12/17/2017 106 CO2 (mEq/L)Date Value12/17/2017 25 Creatinine (mg/dL)Date Value12/17/2017 0.67 BUN (mg/dL)Date Value12/17/2017 12 Anion Gap (no units)Date Value12/17/2017 12 Calcium (mg/dL)Date Value12/17/2017 9.2 CBC:HGB (g/dL)Date Value12/17/2017 11.904 11.4 Hematocrit (%)Date Value12/17/2017 38.004/ 35.2 WBC (thou/cmm)Date Value12/17/2017 8.8004 8.52 I personally reviewed the patient's most recent chest X-rays and chest CT'smyself.?VITALS:BP 137/91 Pulse 80 Temp 36.4 ?C (97.5 ?F) (Oral) Resp 16 Ht 172.7 cm (5'8) Wt 112.5 kg (248 lb) SpO2 98% BMI 37.71 kg/f8UDZEJOCD EXAM:GENERAL: AAOx3, pleasant, resting in bed side chair, NADNEURO: CN II-XII intact, speech clear, but with a nasal quality to his voicewhich patient reports came about nearly 48 hours after this accidentHEENT: NCAT, EOMI, no lymphadenopathy appreciated, subcutaneous emphysemapalpatedRESPIRATO RY: Clear to auscultation bilaterally anteriorly , even/unlabored atrest, no wheezing, accessory muscle use, pursed lip breathing or conversationaldysnea. Patient is on room air.CARDIOVASCULAR: Normal S1S2, RRR. No murmur, rub, or gallop. No edema.GI: Soft, nondistended, nontender, bowel sounds present p4PYVPKIHKNSB: no clubbing or cyanosis. [id number]: warm, dry, intact, no rash or bruising in the chest wall or back?IMPRESSION:S/P trauma with broken right ribsPneumomediastinum with subcutaneous emphysemaPLAN:Today's chest X-ray does not show any worsening of either his pneumomediastinumor subcutaneous emphysema.Will arrange for a bronchoscopic airway exam on Tuesday (12/19/17).Patient can eat from our standpoint.Discussed with patient and patient's in detail.All questions were answered and concerns addressed.Discussed with General Surgery resident.SIGNATURE:Hood Shelton MD PATIENT NAME:Avery Newell:December 17, 2017 :1:21 PM PAGER/CONTACT #:[phone]?Previous Garth Jones MD 12/18/2017 6:09 AM IncompleteTrauma Surgery Progress NoteSERVICE DATE: 12/17/2017SUBJECTIVE:Kayode erating diet DIET NPONausea NoEmesis NoFlatus NoBowel movement NoPain Controlled moderatelyAmbulating YesOBJECTIVE:Vitals:Temp (24hrs), Av.5 ?C (97.7 ?F), Min:36.2 ?C (97.2 ?F), Max:36.8 ?C (98.2?F)BP 122/73 Pulse 62 Temp 36.5 ?C (97.7 ?F) (Temporal Artery) Resp 18 Ht172.7 cm (5' 8) Wt 112.5 kg (248 lb) SpO2 97% BMI 37.71 kg/m2O2 Therapy: Room AirIANDO:Date 12/17/17 0700 - 12/18/17 0659 12/18/17 07 - 12/19/17 0659Shift 7730-1765 0144-2762 1441-2309 24 Hour Total 7391-5193 4941-0341 2300-047794 Hour TotalINTAKE PO 967 410 2898 PO 970 899 2598 IV 1285 412 1220 D5 LR 530 530 LR 1000 1000 Shift Total 1420 660 530 2610OUTPUT Urine 2 3 502 507 Void (ml) 500 500 Urine Not Saved 2 3 2 7 # of BMs Number of BMs 1 x 1 x Shift Total 2 3 502 507Weight (kg) 112.5 112.5 112.5 112.5 112.5 112.5 112.5 112.5MEDICATIONSCurrent Facility-Administered Medications:acetaminophen 975 mg tab(s) (TYLENOL) 975 mg ORAL q 6 Hketorolac 15 mg injection (TORADOL) 15 mg INTRAVENOUS q 6 Hgabapentin 300 mg cap(s) (NEURONTIN) 300 mg ORAL q 8 HoxyCODONE IR 5-10 mg tab(s) (ROXICODONE) 5-10 mg ORAL q 4 H PRNmorphine 4 mg injection 4 mg INTRAVENOUS q 2 H PRNdextrose 5% in LR infusion (D5-LR) 125 mL/hr INTRAVENOUS CONTINUOUSiv contrast (radiology procedure) INTRAVENOUS DIRECTED PRNiv contrast (radiology procedure) INTRAVENOUS DIRECTED PRNatorvastatin 10 mg tab(s) (LIPITOR) 10 mg ORAL DAILYlisinopril 10 mg tab(s) (ZESTRIL, PRINIVIL) 10 mg ORAL DAILYaspirin, enteric coated 81 mg tab(s) (ASPIRIN, ENTERIC COATED) 81 mg ORAL DAILYdocusate sodium 100 mg cap(s) (COLACE) 100 mg ORAL BIDdextrose 40 % 15 g 15 g ORAL PRNOrglucagon 1 mg injection (GLUCAGEN) 1 mg INTRAMUSCULAR PRNOrdextrose 50% in water 25 mL syringe 12.5 g INTRAVENOUS PRNinsulin lispro pen (rapid acting) (HumaLOG KWIKPEN) SUBCUTANEOUS q 6 Henoxaparin 30 mg injection (LOVENOX) 30 mg SUBCUTANEOUS q 12 HRLabs:Recent Labs 12/17/1802NA 137 139 141K 3.6 4.1 3.7CHLOR 105 106 108*CO2 26 25 27BUN 18 12 11CREAT 0.83 0.67 0.73GLUC 176* 119* 112*ANION 10 12 10CA 8.3* 9.2 8.8WBC 6.15 8.80 8.52HB 10.4* 11.9* 11.4*HCT 32.4* 38.0* 35.2*PLT 219 246 233INR -- -- 1.04Exam:GENERAL: No distress, AlertNEURO: AANDOx3, CN II-XII grossly intactHEENT: normocephalic, atraumaticLUNGS: Unlabored breathingCARDIAC: Regular rate and rhythm as aboveABDOMEN: Soft, non-tender, non-distendedEXTREMITIES: DELGADO, No deformities, No edemaSKIN: Skin color, texture, turgor normal, No rashes or lesionsASSESSMENT AND PLAN:Active Hospital Problems Diagnosis Date Noted- Trauma 12/16/2017 Overview Note: Added automatically from request for surgery [id number]- Pneumomediastinum (HCC) 12/16/201767 year old male attacked by cow x2, most recently thrown against gate andcharged several times. No LOC. Right 3,5,6 rib fractures, pneumomediastinum,subcutan eous air in neck.- NPO for bronchoscopy today- IS- NPCS c/s pending- stable on RA- tele- pulm consultAbigail MD RobertGeneral Surgery, PGY-1April 2017 6:01 AMPager: [phone] York MD 12/18/2017 7:47 AM Signed ANESTHESIOLOGY DAY OF SURGERY NOTESERVICE DATE: 12/18/2017SERVICE TIME: 7:46 AMDOB: 1950Procedure(s) (LRB):BRONCHOSCOPY FLEXIBLE ADULT (Bilateral)Surgeon(s):Guillemro Knight LeukhardtEstimated body mass index is 37.71 kg/(m2) as calculated from the following: Height as of this encounter: 172.7 cm (5' 8). Weight as of this encounter: 112.5 kg (248 lb).Most recent hematocrit and potassium results:Hematocrit 32.4 12/18/2017Potassium 3.6 12/18/2017ANES DOS/PREOP NOTE:Vitals: 900 359 430 BP: 117/61 122/73 144/69Pulse: 72 62 62Resp: 18 18 18Temp: 36.2 ?C (97.2 ?F) 36.5 ?C (97.7 ?F) 36.2 ?C (97.2 ?F)TempSrc: Oral Temporal Artery Temporal ArterySpO2: 100% 98% 97%Weight:Height:ACTIVE PROBLEM LISTPneumomediastinum (Hcc)TraumaPAST MEDICAL HISTORYDiagnosis Date- Diabetes (HCC)- Hypertension- OsteoarthritisPAST SURGICAL HISTORYProcedure Laterality Date- ORTHOPEDICS SURGERY HX Bilateral knee replacements- ORTHOPEDICS SURGERY HX Carpal tunnel surgery x 3History reviewed. No pertinent family history.Social History:Social HistorySubstance Use Topics- Smoking status: Former Smoker Types: Cigars- Smokeless tobacco: Never Used- Alcohol use 3.0 oz/week 2 Glasses of Wine (5oz) per weekNo current facility-administered medications on file prior to encounter.No current outpatient prescriptions on file prior to encounter.Current Facility-Administered Medications:lactated ringers infusion 125 mL/hr INTRAVENOUS (PACU) CONTINUOUS Serge Jefferson JaylenfentaNYL 50 mcg/mL 50 mcg injection (SUBLIMAZE) 50 mcg INTRAVENOUS (PACU) PRSarah Jefferson NadineYDROmorphone 0.5 mg injection (DILAUDID) 0.5 mg INTRAVENOUS (PACU) PRN Serge GamaxyCODONE IR 5 mg tab(s) (ROXICODONE) 5 mg ORAL (PACU) PRN Serge Paulino Dukendansetron (PF) 4 mg injection (ZOFRAN) 4 mg INTRAVENOUS (PACU) PRGrupo Rodriguezrochlorperazine 10 mg injection (COMPAZINE) 10 mg INTRAVENOUS (PACU) PRGrupo ValentineJefferson Zanakmeperidine (PF) 12.5 mg injection (DEMEROL) 12.5 mg INTRAVENOUS (PACU) PRSarah York[MAR Hold due to Transfer] acetaminophen 975 mg tab(s) (TYLENOL) 975 mg ORAL q 6H [facility] Leukhardt 975 mg at 12/17/17 2359[MAR Hold due to Transfer] ketorolac 15 mg injection (TORADOL) 15 mg INTRAVENOUSq 6 H [facility] Leukhardt 15 mg at 12/18/17 0549[MAR Hold due to Transfer] gabapentin 300 mg cap(s) (NEURONTIN) 300 mg ORAL q 8H [facility] Leukhardt 300 mg at 12/17/17 2135[MAR Hold due to Transfer] oxyCODONE IR 5-10 mg tab(s) (ROXICODONE) 5-10 mg ORALq 4 H PRN [facility] Leukhardt[MAR Hold due to Transfer] morphine 4 mg injection 4 mg INTRAVENOUS q 2 H PRNGabino H Leukhardt[MAR Hold due to Transfer] dextrose 5% in LR infusion (D5-LR) 125 mL/hrINTRAVENOUS CONTINUOUS Cindy (nAa Jones Last Rate: 125 mL/hr at12/17/172357 125 mL/hr at 12/17/172357[MAR Hold due to Transfer] iv contrast (radiology procedure) INTRAVENOUS ASDIRECTED PRGrupo CostaResJonh Negron MD[MAR Hold due to Transfer] iv contrast (radiology procedure) INTRAVENOUS ASDIRECTED PRN Stephaniewin Ortiz[MAR Hold due to Transfer] atorvastatin 10 mg tab(s) (LIPITOR) 10 mg ORAL DAILYStephanie Ortiz 10 mg at 12/17/17 114[MAR Hold due to Transfer] lisinopril 10 mg tab(s) (ZESTRIL, PRINIVIL) 10 mgORAL DAILY Stephanie Ortiz 10 mg at 12/17/17 1148[MAR Hold due to Transfer] aspirin, enteric coated 81 mg tab(s) (ASPIRIN,ENTERIC COATED) 81 mg ORAL DAILY Stephanie Ortiz 81 mg at 12/17/17 114[MAR Hold due to Transfer] docusate sodium 100 mg cap(s) (COLACE) 100 mg ORALBID Stephanie Ortiz 100 mg at 12/17/172134[MAR Hold due to Transfer] dextrose 40 % 15 g 15 g ORAL PRN Stephanie Cheng[MAR Hold due to Transfer] glucagon 1 mg injection (GLUCAGEN) 1 mg INTRAMUSCULARPRN Stephanie Montgomery[MAR Hold due to Transfer] dextrose 50% in water 25 mL syringe 12.5 gINTRAVENOUS PRN Stephanie Ortiz[MAR Hold due to Transfer] insulin lispro pen (rapid acting) (HumaLOG KWIKPEN)SUBCUTANEOUS q 6 H Stephanie Ortiz 3 Units at 12/18/17 0624[MAR Hold due to Transfer] enoxaparin 30 mg injection (LOVENOX) 30 mgSUBCUTANEOUS q 12 HR Stephanie Ortiz 30 mg at 12/17/175Allergies:ALLERGIESAll ergen Reactions- Bactrim [Sulfametho* Rash- Tramadol Unknown- Vicodin [Hydrocodon* IntoleranceDOS EXAM: Adequate NPO status: YesAnesthetic risks, benefits, alternatives, personnel and consent discussed: YesPatient agrees to proceed: YesPrevious Anesthesia: No history of adverse event.Airway Assessment: MP 3; Neck ROM: Limited Extension; Airway Evaluation: ShortNeckSymptoms of Sleep Apnea: NoneDentition: Dentures: upperAdditional Physical Exam:Lungs: Patient health status unchanged since recent history and physical. Seehistory and physical for exam findings.Cardiac: Patient health status unchanged since recent history and physical. Seehistory and physical for exam findings.Additional Pertinent Findings: N/ABlood Products: Not anticipated for this procedure.Anesthetic Plan: General, Standard ASA Monitors and MAC with SedationPain Management Plan: Parenteral or OralASA Class: 3Other Medical Problems: NoneChronic Beta Minda medication administered within 24 hours: N/AI have interviewed and examined the patient. I have reviewed the medical recordand/or the pre-anesthesia evaluation, pertinent labs, and test results.Significant changes in the patient's condition since the History and Physical,not otherwise documented in primary service progress notes: [facility] updated information obtained within 48 hours of Surgery/Procedure.SIGNATUR E: Serge York MD PATIENT NAME: Avery BarfieldTE: December 18, 2017 : 7:46 AM CSN: [id number] Normal [facility] Hemogram/Diffon 12-16-2017 Abs Immature Grans 0.03 thou/cmm Normal 0.00-0.05 [facility] Comment on above: Performed By: #### C BCD1 ####[place] [address] Abs. Baso 0.03 thou/cmm Normal 0.01-0.08 [facility] Comment on above: Performed By: #### C BCD1 ####[place] [address] Abs. [place] 0.85 thou/cmm High 0.30-0.82 [facility] Comment on above: Performed By: #### C BCD1 ####[place] [address] Abs. Neut 6.32 thou/cmm High 1.78-5.38 [facility] Comment on above: Performed By: #### C BCD1 ####[place] [address] Basophils/100 WBC Auto (Bld) 0.4 % Normal [facility] Comment on above: Performed By: #### C BCD1 ####[place] [address] Eosinophils 0.24 thou/cmm Normal 0.04-0.54 [facility] Comment on above: Performed By: #### C BCD1 ####[address] [address] Eosinophils/100 leukocytes 2.8 % Normal [facility] Comment on above: Performed By: #### C BCD1 ####[place] [address] Erythrocyte distribution width Auto Ratio (RBC) 15.9 % High 11.6-14.4 [facility] Comment on above: Performed By: #### C BCD1 ####[place] [address] Erythrocytes (RBC) 4.09 mil/cmm Low 4.63-6.08 [facility] Comment on above: Performed By: #### C BCD1 ####[place] [address] Hematocrit (HCT) 35.2 % Low 40.1-51.0 [facility] Comment on above: Performed By: #### C BCD1 ####[place] [address] Hemoglobin mass conc (Bld) 11.4 g/dL Low 13.7-17.5 [facility] Comment on above: Performed By: #### C BCD1 ####[address] [address] Immature Grans 0.40 % Normal [facility] Comment on above: Performed By: #### C BCD1 ####[place] [address] Lymphocytes 1.04 thou/cmm Normal 0.84-2.85 [facility] Comment on above: Performed By: #### C BCD1 ####[place] [address] Lymphocytes/100 leukocytes 12.2 % Normal [facility] Comment on above: Performed By: #### C BCD1 ####[place] [address] MCH 27.9 pg Normal 25.7-32.2 [facility] Comment on above: Performed By: #### C BCD1 ####[facility] [place], [place] [address] MCHC mass conc (RBC) 32.4 % Normal 32.3-36.5 [facility] Comment on above: Performed By: #### C BCD1 ####[address] [address] MCV 86.1 fL Normal 83.2-95.6 [facility] Comment on above: Performed By: #### C BCD1 ####[address] [address] Monocytes/100 leukocytes 10.0 % Normal [facility] Comment on above: Performed By: #### C BCD1 ####[address] [address] Platelet mean volume (PMV) 10.0 fL Normal 8.7-12.0 [facility] Comment on above: Performed By: #### C BCD1 ####[address] [address] Platelets 233 thou/cmm Normal 141-365 [facility] Comment on above: Performed By: #### C BCD1 ####[address] [address] RDW SD 49.0 fl High 36.1-45.8 [facility] Comment on above: Performed By: #### C BCD1 ####[address] [address] Seg Neutrophil 74.2 % Normal [facility] Comment on above: Performed By: #### C BCD1 ####[address] [address] WBC (Leukocytes) 8.52 thou/cmm Normal 4.23-9.07 [facility] Comment on above: Performed By: #### C BCD1 ####[address] [address] MDRD GFRon 12-16-2017 eGFR (non-black) mL/min/{1.73_m2} Normal >60mL/m in/ 1.73m2 [facility] Comment on above: Result Comment: If t he patient is , multiply the result by 1.210. Performed By: #### G FR ####[facility] [place] [address] PLAN OF CAREon 12-16-2017 PLAN OF CARE HNO ID: [id number] thor: John BarreraLysanda)Service: (none)Author Type: TechnicianType: Plan of CareFiled: 12/16/2017 9:40 PMNote Text:MEDICATION HISTORYPatient Name:.Avery VasquezMRN: [id number]: 1950Source of history:Patient: Reliability of source: Appears reliable,clearly identified: Medication nameMedication Nonadherence Identified: No barriers notedThe above information represents the best possible medication history: YesAdditional comments: Unable to verify with pt's pharmacy. Verified withpt.Allergies:ALLERGIES Allergen Reactions- Bactrim [Sulfametho* Rash- Tramadol Unknown- Vicodin [Hydrocodon* IntolerancePreferred Pharmacy: [facility] Medications:Prior to Admission medications as of 12/16/17 2140Medication Sig Last Dose TakingmetFORMIN ER (GLUMETZA) 500 mg 24 hr tablet Take 1,000 mg by mouth twicedaily. 12/16/2017 at Unknown time Yeslisinopril (ZESTRIL, PRINIVIL) 10 mg tablet Take 10 mg by mouth oncedaily. 12/16/2017 at Unknown time Yesatorvastatin (LIPITOR) 10 mg tablet Take 10 mg by mouth once daily.12/16/2017 at Unknown time Yesglimepiride (AMARYL) 1 mg tablet Take 1 mg by mouth daily with breakfast.Unknown dose 12/16/2017 at Unknown time Yesaspirin, enteric coated (ASPIRIN, ENTERIC COATED) 81 mg EC tablet Take 81mg by mouth once daily. 12/16/2017 at Unknown time YesJohn BarreraLysanda pager [id number] 2017 9:40 PM Normal [facility] Protimeon 12-16-2017 INR Coag RelTime (PPP) 1.04 {INR} Normal [facility] Comment on above: Result Comment: Soy dard Therapy 2.0-3.0High Dose 2.5-3.5 Performed By: #### P T ####[facility] [place], [place] [address] Prothrombin time (PT) Coag time (PPP) 10.9 s Normal 9.3-11.9 [facility] Comment on above: Performed By: #### P T ####[facility] [place], [place] [address] No Panel Information Nasal Screen MRSA/MSSA [facility] Work Phone: Vital Signs Date Time Vital Sign Value Performing Clinician Facility 06-14-2025 08:24-0400 Body height 172.[address] Aidan Argueta MD Work Phone: [facility] 06-14-2025 08:24-0400 Body mass index (BMI) [Ratio] 34.2 kg/m2 Dr. Aidan Argueta MD Work Phone: [facility] 06-14-2025 08:24-0400 Body weight 102.[address] Aidan Argueta MD Work Phone: [facility] 10-10-2024 12:55-0500 Body height 170.2 cm Clarence Rhoades MD Work Phone: [facility] 10-10-2024 12:55-0500 Body mass index (BMI) [Ratio] 35.55 kg/m2 Clarence Rhoades MD Work Phone: [facility] 10-10-2024 12:55-0500 Body weight 102.97 kg Clarence Rhoades MD Work Phone: [facility] 10-10-2024 12:55-0500 Diastolic blood pressure 78 mm[Hg] Clarence Rhoades MD Work Phone: [facility] 10-10-2024 12:55-0500 Heart rate 85 /min Clarence Rhoades MD Work Phone: [facility] 10-10-2024 12:55-0500 SaO2% (BldA) [Mass fraction] 94 % lCarence Rhoades MD Work Phone: [facility] 10-10-2024 12:55-0500 Systolic blood pressure 128 mm[Hg] Clarence Rhoades MD Work Phone: [facility] 09-23-2024 08:15-0500 Body temperature 98.7 [degF] Dr. Aidan Argueta MD Work Phone: [facility] 09-23-2024 08:15-0500 Diastolic blood pressure 72 mm[Hg] Dr. Aidan Argueta MD Work Phone: [facility] 09-23-2024 08:15-0500 Heart rate 100 /min Dr. Aidan Argueta MD Work Phone: [facility] 09-23-2024 08:15-0500 Respiratory rate 12 /min Dr. Aidan Argueta MD Work Phone: [facility] 09-23-2024 08:15-0500 SaO2% (BldA) [Mass fraction] 94 % Dr. Aidan Argueta MD Work Phone: [facility] 09-23-2024 08:15-0500 Systolic blood pressure 130 mm[Hg] Dr. Aidan Argueta MD Work Phone: [facility] 07-26-2024 08:23-0500 Body height 172.[address] Aidan Argueta MD Work Phone: [facility] 07-26-2024 08:23-0500 Body mass index (BMI) [Ratio] 34.2 kg/m2 Dr. Aidan Argueta MD Work Phone: [facility] 07-26-2024 08:23-0500 Body weight 102.[address] Aidan Argueta MD Work Phone: [facility] 07-23-2024 12:53-0500 Body height 170.2 cm Clarence Rhoades MD Work Phone: [facility] 07-23-2024 12:53-0500 Body mass index (BMI) [Ratio] 35.4 kg/m2 Clarence Rhoades MD Work Phone: [facility] 07-23-2024 12:53-0500 Body weight 102.51 kg Clarence Rhoades MD Work Phone: [facility] 07-23-2024 12:53-0500 Diastolic blood pressure 79 mm[Hg] Clarence Rhoades MD Work Phone: [facility] 07-23-2024 12:53-0500 Heart rate 87 /min Clarence Rhoades MD Work Phone: [facility] 07-23-2024 12:53-0500 SaO2% (BldA) [Mass fraction] 94 % Clarence Rhoades MD Work Phone: [facility] 07-23-2024 12:53-0500 Systolic blood pressure 127 mm[Hg] Clarence Rhoades MD Work Phone: [facility] 07-12-2024 13:37-0500 Body temperature 97.81 [degF] Diana Stovall MD Work Phone: [facility] 07-12-2024 13:37-0500 Diastolic blood pressure 69 mm[Hg] Diana Stovall MD Work Phone: [facility] 07-12-2024 13:37-0500 Heart rate 81 /min Diana Stovall MD Work Phone: [facility] 07-12-2024 13:37-0500 Respiratory rate 18 /min Diana Stovall MD Work Phone: [facility] 07-12-2024 13:37-0500 SaO2% (BldA) [Mass fraction] 95 % Diana Stovall MD Work Phone: [facility] 07-12-2024 13:37-0500 Systolic blood pressure 121 mm[Hg] Diana Stovall MD Work Phone: [facility] 07-11-2024 19:51-0500 Body mass index (BMI) [Ratio] 36.84 kg/m2 Diana Stovall MD Work Phone: [facility] 07-11-2024 19:51-0500 Body weight 106.7 kg Diana Stovall MD Work Phone: [facility] 07-07-2024 18:31-0400 SaO2% (BldA) [Mass fraction] 95.7 % Diana Stovall MD Work Phone: [facility] 07-07-2024 12:05-0400 Body height 170.2 cm Diana Stovall MD Work Phone: [facility] 07-03-2024 10:23-0400 Body height 170.2 cm Godfrey Myers MD Work Phone: [facility] 07-03-2024 10:23-0400 Body mass index (BMI) [Ratio] 36.65 kg/m2 Godfrey Myers MD Work Phone: [facility] 07-03-2024 10:23-0400 Body weight 106.14 kg Godfrey Myers MD Work Phone: [facility] 07-03-2024 10:23-0400 Diastolic blood pressure 88 mm[Hg] Godfrey Myers MD Work Phone: [facility] 07-03-2024 10:23-0400 Heart rate 79 /min Godfrey Myers MD Work Phone: [facility] 07-03-2024 10:23-0400 Systolic blood pressure 136 mm[Hg] Godfrey Myers MD Work Phone: [facility] 06-27-2024 10:00-0400 Diastolic blood pressure 55 mm[Hg] Alonso Marin MD Work Phone: [facility] 06-27-2024 10:00-0400 Heart rate 92 /min Alonso Marin MD Work Phone: [facility] 06-27-2024 10:00-0400 Respiratory rate 15 /min Alonso Marin MD Work Phone: [facility] 06-27-2024 10:00-0400 SaO2% (BldA) [Mass fraction] 96 % Alonso Marin MD Work Phone: [facility] 06-27-2024 10:00-0400 Systolic blood pressure 101 mm[Hg] Alonso Marin MD Work Phone: [facility] 06-27-2024 09:01-0400 Body height 172.7 cm Alonso Marin MD Work Phone: [facility] 06-27-2024 08:09-0400 Body temperature 97.39 [degF] Alonso Marin MD Work Phone: [facility] 06-27-2024 06:00-0400 Body mass index (BMI) [Ratio] 35.17 kg/m2 Alonso Marin MD Work Phone: [facility] 06-27-2024 06:00-0400 Body weight 104.9 kg Alonso Marin MD Work Phone: [facility] 09-08-2022 08:13-0500 Body height 172.[address] Jair Henning Work Phone: [facility] 09-08-2022 08:13-0500 Body mass index (BMI) [Ratio] 36.8 kg/m2 Dr. Jair Henning Work Phone: [facility] 09-08-2022 08:13-0500 Body weight 109.[address] Jair Henning Work Phone: [facility] 05-07-2022 13:41-0400 Body height 172.7 cm Bert Ortiz MD Work Phone: [facility] 05-07-2022 13:41-0400 Body weight 108.86 kg Bert Ortiz MD Work Phone: [facility] 03-05-2022 14:53-0400 Body height 172.7 cm Pacc 1 Work Phone: [facility] 03-05-2022 14:53-0400 Body temperature 97.39 [degF] Pacc 1 Work Phone: [facility] 03-05-2022 14:53-0400 Body weight 108.86 kg Pacc 1 Work Phone: [facility] 03-05-2022 14:53-0400 Diastolic blood pressure 62 mm[Hg] Pacc 1 Work Phone: [facility] 03-05-2022 14:53-0400 Heart rate 100 /min Pacc 1 Work Phone: [facility] 03-05-2022 14:53-0400 Respiratory rate 18 /min Pacc 1 Work Phone: [facility] 03-05-2022 14:53-0400 SaO2% (BldA) [Mass fraction] 97 % Pacc 1 Work Phone: [facility] 03-05-2022 14:53-0400 Systolic blood pressure 134 mm[Hg] Pacc 1 Work Phone: [facility] 12-14-2021 09:27-0400 Body height 172.72 cm [facility] Work Phone: Encounters Encounter Date Encounter Type Care Provider Facility Start: 07-17-2025 ambulatory Aidan Argueta Facilit y:[facility] Start: 07-12-2025 ambulatory Aidan Argueta Facilit y:[facility] Start: 07-04-2025 End: 07-04-2025 ambulatory Aidan Argueta [place] Start: 06-20-2025 End: 06-20-2025 ambulatory Aidan Argueta Facility:[facility] Start: 06-14-2025 End: 06-14-[address] Kostas Borja MD -[facility] Work Phone: Start: 06-14-2025 End: 06-14-[address] Aidan Argueta MD Work Phone: -[facility] Start: 05-20-2025 End: 05-20-[address] Aidan Argueta MD Work Phone: -[facility] Start: 05-20-2025 End: 05-20-[address] Aidan Argueta MD -[facility] Services Work Phone: Start: 05-20-2025 End: 05-20-2025 ambulatory Aidan Argueta Facility:[facility] Start: 05-02-2025 End: 05-02-[address] Aidan rAgueta MD Work Phone: -Laboratory [facility] [place] Start: 05-02-2025 End: 05-02-[address] Aidan Argueta MD -Laboratory [facility] [place] Start: 05-02-2025 End: 05-02-2025 ambulatory Aidan Argueta Facility:[facility] Start: 11-05-2024 End: 11-05-[address] Aidan Argueta MD Work Phone: [facility] Work Phone: Start: 11-05-2024 End: 11-05-[address] Aidan Argueta MD -Laboratory, [facility] Start: 11-05-2024 End: 11-05-2024 ambulatory Aidan Argueta Facility:[facility] Start: 10-10-2024 End: 10-10-2024 Office outpatient visit 15 minutes Clarence Rhoades MD Work Phone: [facility] [place] Comment on above: Acute pulmonary embo lism without acute cor pulmonale, unspecified pulmonary embolism type (HCC) (Primary Dx) Start: 10-10-2024 End: 10-10-2024 ambulatory AIDAN ARGUETA [facility] Start: 10-08-2024 End: 10-16-2024 Telephone encounter Clarence hRoades MD Work Phone: [facility] [place] Comment on above: Appointment Start: 09-24-2024 End: 09-24-[address] Aidan Argueta MD -Laboratory, Spec[facility] Work Phone: Start: 09-23-2024 End: 09-23-2024 Patient encounter procedure Aidan AYON [facility] Work Phone: Start: 09-23-2024 End: 09-24-2024 ambulatory Aidan Argueta Facility:[facility] Start: 07-26-2024 End: 07-26-[address] Jair Gu MD -[facility] Work Phone: Start: 07-26-2024 End: 07-26-2024 ambulatory [facility] Facility[facility] Start: 07-23-2024 End: 07-23-2024 Telephone encounter Melina Flores RN [facility] Start: 07-23-2024 End: 07-23-2024 Office outpatient new 30 minutes Clarence Rhoades MD Work Phone: [facility] [place] Comment on above: Acute pulmonary embo lism without acute cor pulmonale, unspecified pulmonary embolism type (HCC) (Primary Dx) Start: 07-23-2024 End: 07-23-2024 ambulatory [facility] Start: 07-16-2024 End: 07-16-2024 ambulatory [facility] Facility:[facility] Start: 07-09-2024 End: 07-09-2024 Telephone encounter Sam Dupont DO Work Phone: [facility] [place] Start: 07-06-2024 End: 07-12-2024 Evaluation and management of inpatient Diana Stovall MD Work Phone: [facility] Trauma Neuro Progressive Care Unit PCU 3W Comment on above: Acute pulmonary embo lism without acute cor pulmonale, unspecified pulmonary embolism type (HCC) (Primary Dx) Start: 07-03-2024 End: 07-03-2024 Office outpatient visit 15 minutes Godfrey Myers MD Work Phone: [facility] [place] Comment on above: SAH (subarachnoid he morrhage) (HCC) (Primary Dx) Start: 07-03-2024 End: 07-03-2024 ambulatory [facility] Start: 07-02-2024 End: 07-02-2024 Telephone encounter Godfrey Myers MD Work Phone: [facility] [place] Comment on above: Appointment Request Start: 06-26-2024 End: 06-27-2024 Evaluation and management of inpatient Alonso Marin MD Work Phone: [facility] Surgical Trauma Neuro Intensive Care Unit STN ICU T2 Comment on above: Intracranial bleedin g (HCC) (Primary Dx); Osteoporosis, unspecified osteoporosis type, unspecified pathological fracture presence; Closed fracture of multiple ribs of right side with routine healing; Traumatic closed fracture of distal clavicle with minimal displacement, right, initial encounter Start: 11-14-2023 End: 11-14-2023 ambulatory [facility] Work Phone: Start: 11-14-2023 End: 11-14-2023 Patient encounter procedure [facility] Start: 07-18-2023 End: 07-18-2023 ambulatory [facility] Work Phone: Start: 07-18-2023 End: 07-18-2023 Patient encounter procedure [facility] Start: 04-28-2023 End: 04-28-2023 ambulatory [facility] Work Phone: Start: 04-28-2023 End: 04-28-2023 Patient encounter procedure [facility] Work Phone: Start: 03-10-2023 End: 03-10-2023 ambulatory [facility] Work Phone: Start: 03-10-2023 End: 03-10-2023 Patient encounter procedure [facility] Start: 03-01-2023 End: 03-01-2023 ambulatory [facility] Work Phone: Start: 03-01-2023 End: 03-01-2023 Patient encounter procedure [facility] Work Phone: Start: 01-26-2023 End: 01-26-2023 Patient encounter procedure [facility] Start: 11-01-2022 End: 11-01-[address] Jair Henning Work Phone: [facility] Work Phone: Start: 11-01-2022 End: 11-01-[address] Jair Henning Work Phone: [facility] Start: 09-22-2022 End: 09-22-[address] Jair Henning Work Phone: [facility] Work Phone: Start: 09-22-2022 End: 09-22-[address] Jair Henning Work Phone: [facility] Start: 09-17-2022 End: 09-17-[address] Jair Henning Work Phone: [facility] Start: 09-16-2022 End: 09-16-2022 ambulatory JAIR PICKENS [facility] Start: 09-08-2022 End: 09-08-[address] Jair Henning Work Phone: [facility] Start: 06-25-2022 End: 06-25-2022 ambulatory JAIR HENNING Facility:[facility] Start: 06-25-2022 ambulatory UNKNOWN PROVIDER Facili ty:[facility] Start: 06-25-2022 End: 06-25-2022 Subsequent hospital visit by physician [facility] Work Phone: Radiology Comment on above: Chronic left shoulde r pain [M25.512, G89.29] Start: 05-28-2022 End: 05-28-[address] Jair Henning Work Phone: [facility] Work Phone: Start: 05-28-2022 End: 05-28-[address] Jair Henning Work Phone: [facility]-Physical Therapy Start: 05-07-2022 End: 05-07-2022 ambulatory JAIR HENNING Facility:[facility] Start: 05-07-2022 End: 05-07-2022 Patient encounter procedure Bert Ortiz MD Work Phone: Orthopedics Comment on above: S/P reverse total sh oulder arthroplasty, left (Primary Dx) Start: 05-07-2022 End: 05-07-2022 Subsequent hospital visit by physician [facility] Work Phone: Radiology Comment on above: Chronic left shoulde r pain [M25.512, G89.29] Start: 04-13-2022 Orders Only Bert Ortiz MD Work Phone: Orthopedics Comment on above: Chronic left shoulde r pain (Primary Dx) Start: 04-02-2022 End: 04-02-2022 ambulatory JIMMY [facility] Facility:[facility] Start: 04-02-2022 End: 04-02-2022 Patient encounter procedure Bert Ortiz MD Work Phone: Orthopedics Comment on above: S/P reverse total sh oulder arthroplasty, left (Primary Dx) Start: 04-02-2022 End: 04-02-2022 [facility] Work [facility] Comment on above: Left shoulder pain, unspecified chronicity [M25.512] Start: 03-30-[address] [facility] Start: 03-22-2022 Orders Only Bert Ortiz MD Work Phone: Orthopaedics Comment on above: Left shoulder pain, unspecified chronicity (Primary Dx) Start: 03-19-2022 ambulatory BERT ORTIZ Facility:[facility] Start: 03-10-2022 Telephone encounter Bert Ortiz MD Work Phone: Orthopaedics Comment on above: Appointment Start: 03-05-2022 Encounter for other preprocedural examination JAIR HENNING [facility] Start: 03-05-2022 End: 03-05-2022 Admission to [place] [id number] Work Phone: [facility] Start: 03-05-2022 End: 03-05-2022 Preprocedural examination done [place] [id number] Work Phone: Pre Anesthesia Start: 03-05-2022 End: 03-05-2022 Patient encounter procedure Bert Ortiz MD Work Phone: Orthopedics Comment on above: Primary osteoarthrit is of left shoulder (Primary Dx) Start: 03-05-2022 End: 03-05-2022 [facility] Work Phone: Pre [facility] Comment on above: Preoperative examina tion (Primary Dx); Primary osteoarthritis of left shoulder; Type 2 diabetes mellitus without complication, without long-term current use of insulin (HCC); Hypertension, unspecified type; Obesity, Class II, BMI 35-39.9 E66.9; Hyperlipidemia, unspecified hyperlipidemia type Start: 03-05-2022 End: 03-05-2022 Subsequent hospital visit by physician [facility] Jennifer Gonzalez Work Phone: Radiology Comment on above: Chronic left shoulde r pain [M25.512, G89.29] Start: 02-15-2022 End: 02-15-[address] Jair Henning Work Phone: [facility]-Pre-Admission Testing Start: 02-15-2022 Non-patient / Non-visit Dr. Toan Henning Work Phone: [facility] Start: 12-30-2021 End: 12-30-2021 Patient encounter procedure [facility] Start: 08-15-2018 End: 08-16-2018 Evaluation and management of inpatient HUGO CASTAÑEDA Facility:B Start: 08-07-2018 End: 08-08-2018 Patient encounter procedure HUGO CASTAÑEDA Facility:[facility] Start: 12-16-2017 End: 12-18-2017 Evaluation and management of inpatient JAIR HENNING Facility:[facility] Procedures Date Procedure Procedure Detail Performing Clinician Start: 06-14-2025 X-ray of lumbosacral spine Dr. Aidan Argueta MD Work Phone: Start: 05-02-2025 Total iron binding c apacity measurement Dr. Aidan Argueta MD Work Phone: Start: 05-02-2025 Vitamin D, 25-hydrox y measurement Dr. Aidan Argueta MD Work Phone: Comment on above: Vitamin D StatusDefi ciency: <20 ng/mL (50nmol/L)Insufficiency: 20-30 ng/mL (50-75 nmol/L)Sufficiency: 30-100 ng/mL (75-250 nmol/L)Toxicity: >100 ng/mL (>250 nmol/L)Previous reported result: 40.1 ng/mLEdited by: RANDY on 05/02/25:1211 AMENDED REPORT 05/02/25 1211 Vitamin D 25-OH previously reported as: 40.1 ng/mL Vitamin D StatusDeficiency: <20 ng/mL (50nmol/L)Insufficiency: 20-30 ng/mL (50-75 nmol/L)Sufficiency: 30-100 ng/mL (75-250 nmol/L)Toxicity: >100 ng/mL (>250 nmol/L) Start: 09-24-[address] Aidan Argueta MD Work Phone: Start: 07-26-2024 Plain X-ray of clavicle Dr. Aidan Argueta MD Work Phone: Start: 07-12-2024 Glucose quantitative blood xcpt reagent strip Diana Stovall MD Work Phone: Start: 07-12-2024 Glucose quantitative blood xcpt reagent strip Diana Stovall MD Work Phone: Start: 07-12-2024 Basic metabolic pane l calcium total Aneil A Magdalena Cortez MD Work Phone: Start: 07-12-2024 Glucose quantitative blood xcpt reagent strip Diana Stovall MD Work Phone: Start: 07-11-2024 Glucose quantitative blood xcpt reagent strip Diana Stovall MD Work Phone: Start: 07-11-2024 Glucose quantitative blood xcpt reagent strip Diana Stovall MD Work Phone: Start: 07-11-2024 End: 07-11-2024 Bacteria identified in Blood by Culture [place] Elkins MD Work Phone: Start: 07-11-2024 Glucose quantitative blood xcpt reagent strip Diana Stovall MD Work Phone: Start: 07-11-2024 Glucose quantitative blood xcpt reagent strip Diana Stovall MD Work Phone: Start: 07-11-2024 Basic metabolic pane l calcium total Poncho Cortez MD Work Phone: Start: 07-10-2024 Glucose quantitative blood xcpt reagent strip Diana Stovall MD Work Phone: Start: 07-10-2024 Glucose quantitative blood xcpt reagent strip Diana Stovall MD Work Phone: Start: 07-10-2024 Glucose quantitative blood xcpt reagent strip Diana Stovall MD Work Phone: Start: 07-10-2024 Radiologic exam ches t single view Elsy Diego DO Work Phone: Start: 07-10-2024 Urinalysis complete panel - Urine Elsy Diego DO Work Phone: Start: 07-10-2024 Urnls dip stick/tabl et rgnt auto w/o microscopy Elsy Diego DO Work Phone: Start: 07-10-2024 End: 07-10-2024 Smr prim src gram/giemsa stain bct fungi/cell Elsy Diego DO Work Phone: Start: 07-10-2024 Assay of lactate Ottoniel Diego DO Work Phone: Start: 07-10-2024 Respiratory pathogen s DNA and RNA panel - Nasopharynx by NILDA with non-probe detection Elsy Diego DO Work Phone: Start: 07-10-2024 Basic metabolic pane l calcium total Poncho Cortez MD Work Phone: Start: 07-09-2024 Glucose quantitative blood xcpt reagent strip Diana Stovall MD Work Phone: Start: 07-09-2024 Glucose quantitative blood xcpt reagent strip Diana Stovall MD Work Phone: Start: 07-09-2024 Glucose quantitative blood xcpt reagent strip Diana Stovall MD Work Phone: Start: 07-09-2024 Glucose quantitative blood xcpt reagent strip Diana Stovall MD Work Phone: Start: 07-09-2024 Basic metabolic pane l calcium total Aneil A Magdalena Cortez MD Work Phone: Start: 07-08-2024 Glucose quantitative blood xcpt reagent strip Diana Stovall MD Work Phone: Start: 07-08-2024 Glucose quantitative blood xcpt reagent strip Diana Stovall MD Work Phone: Start: 07-08-2024 Glucose quantitative blood xcpt reagent strip Diana Stovall MD Work Phone: Start: 07-08-2024 Respiratory pathogen s DNA and RNA panel - Nasopharynx by NILDA with non-probe detection Elsy Diego DO Work Phone: Start: 07-08-2024 Urinalysis complete panel - Urine Shalom Rosen DO Work Phone: Start: 07-08-2024 Urnls dip stick/tabl et reagent auto microscopy Shalom Rosen DO Work Phone: Start: 07-08-2024 Glucose quantitative blood xcpt reagent strip Diana Stovall MD Work Phone: Start: 07-08-2024 Radiologic exam ches t single view Lavern Estrada MD Work Phone: Start: 07-08-2024 Bacteria identified in Blood by Culture Lavern Estrada MD Work Phone: Start: 07-08-2024 End: 07-08-2024 Basic metabolic panel calcium total Aneil A Magdalena Cortez MD Work Phone: Start: 07-08-2024 BLOOD CULTURE IDENTI FICATION - ANAEROBIC Lavern Estrada MD Work Phone: Start: 07-08-2024 Ecg routine ecg w/le ast 12 lds trcg only w/o i&r Lavern Estrada MD Work Phone: Start: 07-08-2024 Ct head/brain w/o co ntrast material Serge Razo MD Work Phone: Start: 07-08-2024 Thromboplastin time partial plasma/whole blood Poncho Cortez MD Work Phone: Start: 07-07-2024 Ecg routine ecg w/le ast 12 lds trcg only w/o i&r Lavern Estrada MD Work Phone: Start: 07-07-2024 Assay of troponin quantitative Sacha Snell MD Work Phone: Start: 07-07-2024 Glucose quantitative blood xcpt reagent strip Diana Stovall MD Work Phone: Start: 07-07-2024 Ecg routine ecg w/le ast 12 lds trcg only w/o i&r Sacha Snell MD Work Phone: Start: 07-07-2024 Comprehensive metabo lic panel Sacha Snell MD Work Phone: Start: 07-07-2024 Radiologic exam ches t single view Sacha Snell MD Work Phone: Start: 07-07-2024 Blood gases any comb ination ph pco2 po2 co2 hco3 Sacha Snell MD Work Phone: Start: 07-07-2024 Glucose quantitative blood xcpt reagent strip Diana Stovall MD Work Phone: Start: 07-07-2024 Dup-scan xtr veins c omplete bilateral study Poncho Cortez MD Work Phone: Start: 07-07-2024 Thromboplastin time partial plasma/whole blood Poncho Cortez MD Work Phone: Start: 07-07-2024 TTE w or wo fol wcon,Doppler Husseinmarisa Paredes CREEL CLERK - [employer] OFFICER Work Phone: Start: 07-07-2024 Glucose quantitative blood xcpt reagent strip Diana Stovall MD Work Phone: Start: 07-07-2024 End: 07-07-2024 Radex clavicle complete Yue Ashby MD Work Phone: Start: 07-07-2024 Glucose quantitative blood xcpt reagent strip Diana Stovall MD Work Phone: Start: 07-07-2024 End: 07-07-2024 Thromboplastin time partial plasma/whole blood Poncho Cortez MD Work Phone: Start: 07-07-2024 Ct head/brain w/o co ntrast material Poncho Cortez MD Work Phone: Start: 07-07-2024 End: 07-07-2024 Thromboplastin time partial plasma/whole blood Poncho Cortez MD Work Phone: Start: 07-06-2024 End: 07-06-2024 Basic metabolic panel calcium total Poncho Cortez MD Work Phone: Start: 07-03-2024 Follow-up visit Follow-up GODFREY LEES Start: 06-27-2024 Glucose quantitative blood xcpt reagent strip Alonso Marin MD Work Phone: Start: 06-27-2024 Glucose quantitative blood xcpt reagent strip Alonso Marin MD Work Phone: Start: 06-27-2024 Ct angiography head w/contrast/noncontrast Elizabeth Rodriguez MD Work Phone: Start: 06-27-2024 Basic metabolic pane l calcium total Serge Razo MD Work Phone: Start: 06-26-2024 Ct thorax w/o contra st material Diana Stovall MD Work Phone: Start: 06-26-2024 Glucose quantitative blood xcpt reagent strip Alonso Marin MD Work Phone: Start: 06-26-2024 Ct head/brain w/o co ntrast material Shy Doran MD Work Phone: Start: 06-26-2024 Radex clavicle complete Mukund Downs MD Work Phone: Start: 06-26-2024 Glucose quantitative blood xcpt reagent strip Alonso Marin MD Work Phone: Start: 06-26-2024 Basic metabolic pane l calcium total Serge Razo MD Work Phone: Start: 03-10-2023 Urine culture Start: 03-01-2023 Urine culture Start: 09-08-2022 X-ray of lumbar spin e, two or three views Dr. Jair Henning Work Phone: Start: 06-25-2022 Radex shoulder compl ete minimum 2 views Cindy Sheridan PA-C Work Phone: Start: 05-07-2022 Radex shoulder compl ete minimum 2 views Bert Ortiz MD Work Phone: Start: 04-02-2022 Radex shoulder compl ete minimum 2 views Bert Ortiz MD Work Phone: Start: 03-05-2022 Antibody screen JAIR CENTENO Comment on above: Order Comment: Speci men Type: BLOOD SPECIMENOrdering Facility: [facility] Address: [address] [place] [address] Performed By: #### T [id number] ####CC MAIN BLOOD BANKCLIA [id number] [address] OF [place] Start: 03-05-2022 Radex shoulder compl ete minimum 2 views Vicki Dumont DO Work Phone: Start: 12-30-2021 CT of upper limb wit hout contrast Nasal Screen MRSA/MSSA Dr. Lauren Henning Work Phone: Plan of Treatment Date Care Activity Detail Author Start: 08-13-2025 End: 08-13-2025 Patient encounter procedure 08/13/2025 2:20 PM EST Office Visit [facility] [place] [facility] [address] [place] [address] Brianne Maradiaga, CREEL CLERK - MORALE OFFICER [address] [place] [address] [facility] [place] Start: 07-12-2025 Diabetes: Estimated Glomerular Filtration Rate for Kidney Health Diabetes: Estimated Glomerular Filtration Rate for Kidney Health [facility] Start: 07-09-2025 Diabetes: Estimated Glomerular Filtration Rate for Kidney Health Diabetes: Estimated Glomerular Filtration Rate for Kidney Health [facility] Start: 06-28-2025 Registered Recurring Registered Recu rring -Physical Therapy Work Phone: Start: 06-27-2025 Diabetes: Estimated Glomerular Filtration Rate for Kidney Health Diabetes: Estimated Glomerular Filtration Rate for Kidney Health [facility] Start: 06-20-2025 MRI of lumbar spine Spine Lumbar ([facility]) [facility] Start: 06-20-2025 Patient encounter procedure Registered [facility] Work Phone: Start: 2025 RSV Immunization for Adults (1 - 1-dose 75+ series) RSV Immunization for Adults (1 - 1-dose 75+ series) [facility] Start: 10-10-2024 End: 10-10-2024 Patient encounter procedure 10/10/2024 1:15 PM EST Office Visit [facility] [place] [address] [place] [address] Clarence Rhoades MD [address] [place] [phone] [facility] [place] Start: 09-07-2024 Screening for malign ant neoplasm of colon [facility] Start: 07-31-2024 End: 07-31-2024 Patient encounter procedure 07/31/2024 1:00 PM EST Office Visit [facility] [address] [place] [phone] Godfrey Myers MD [address] [place] [address] [facility] Start: 07-30-2024 End: 07-30-2024 Patient encounter procedure 07/30/2024 1:00 PM EST Appointment [facility] [address] [facility] [address] [place] [phone] Shaggy Saucedo PA-C [address] [place] [address] [address] [facility] [address] Start: 07-23-2024 End: 07-23-2024 Patient encounter procedure 07/23/2024 1:00 PM EST Office Visit [facility] [place] [address] [place] [phone] Clarence Rhoades MD [address] [place] [phone] [facility] [place] Start: 07-13-2024 End: 07-13-2024 Patient encounter procedure 07/13/2024 10:15 AM EST Office Visit [facility] Neuroscience [address] [phone] Godfrey Myers MD [address] [place] [phone] [facility] Start: 07-11-2024 End: 06-27-2025 CT Head WO contrast CT head wo IV contrast Imaging Routine Intracranial bleeding (HCC) Expected: 07/11/2024, Expires: 06/27/2025 [facility] Work Phone: Comment on above: Expected: 07/11/2024 , Expires: 06/27/2025 Start: 07-11-2024 End: 07-11-2024 Patient encounter procedure 07/11/2024 11:30 AM EST Appointment [facility] [address] [facility] [address] [place] [phone] Shaggy Saucedo PA-C [address] [place], [place] [phone] [facility] [address] Start: 07-10-2024 End: 07-10-2024 Patient encounter procedure 07/10/2024 11:30 AM EST Office Visit [facility] [place] [address] [place] [phone] Maude Babin PA-C [address] [place] [address] [facility] [place] Start: 07-03-2024 End: 07-03-2024 Patient encounter procedure 07/03/2024 10:15 AM EDT Office Visit [facility] Neuroscience [address] [phone] Godfrey Myers MD [address] [place] [address] [facility] Neuro[facility] [place] Start: 05-06-2024 COVID-19 Vaccine ( season) COVID-19 Vaccine ( season) [facility] Start: 05-06-2022 Influenza vaccination INFLUENZA (#1) [facility] Start: 03-05-2022 End: 05-05-2022 CONFIRM BLOOD TYPE [facility] Work Phone: Comment on above: Expected: 03/05/2022 , Expires: 05/05/2022 Start: 03-05-2022 End: 05-05-2022 TYPE AND SCREEN,30 DAY [facility] Work Phone: Comment on above: Expected: 03/05/2022 , Expires: 05/05/2022 Start: 10-26-2021 COVID-19 VACCINE (4 - Booster for Pfizer series) COVID-19 VACCINE (4 - Booster for Pfizer series) [facility] Start: 09-05-2021 ADVANCE DIRECTIVE DISCUSSION ADVANCE DIRECTIVE DISCUSSION [facility] Start: 09-05-2021 DEPRESSION ASSESSMENT DEPRESSION ASS ESSMENT [facility] Start: 08-20-2021 COVID-19 VACCINE (4 - Booster for Pfizer series) COVID-19 VACCINE (4 - Booster for Pfizer series) [facility] Start: 2010 RSV Immunization for Adults (1 - Risk 60-74 years 1-dose series) RSV Immunization for Adults (1 - Risk 60-74 years 1-dose series) [facility] Start: 02-27-2000 SHINGRIX VACCINE (1 of 2) SHINGRIX VACCINE (1 of 2) [facility] Start: 02-27-2000 Zoster Vaccines (1 o f 2) Zoster Vaccines (1 of 2) [facility] Start: 1995 COLOGUARD (FIT-DNA) COLOGUARD (FIT-D NA) [facility] Start: 1995 Colonoscopy COLONOSCOPY [facility] Start: 1995 COLORECTAL CANCER SCREENING COLORECTAL CANCER SCREENING [facility] Start: [address] COLONOGRAPHY [facility] Start: 1995 FECAL OCCULT BLOOD FECAL OCCULT BLOO D [facility] Start: 1995 [facility]OSCOPY [facility] Start: 1969 DTaP/Tdap/Td Vaccine s (1 - Tdap) DTaP/Tdap/Td Vaccines (1 - Tdap) [facility] Start: 1969 Urine microalbumin profile DTAP,TDAP,TD (1 - Tdap) [facility] Start: 02-27-1968 ANNUAL PCP TEAM CANVAS [employer] MAKER MUKUL DISEASE VISIT ANNUAL PCP TEAM CHRONIC DISEASE VISIT [facility] Start: 02-27-1968 BP CONTROLLED (<130/80) BP CONTROLLE D (<130/80) [facility] Start: 02-27-1968 Diabetes: Urine Albumin-Creatinine Ratio for Kidney Health Diabetes: Urine Albumin-Creatinine Ratio for Kidney Health [facility] Start: 02-27-1968 Hepatitis B surface antibody level LDL CHOLESTEROL [facility] Start: 02-27-1968 HEPATITIS C SCREENING [facility]IT[facility] Start: 02-27-1968 Hepatitis C screening Hepatitis C [facility] Start: 1962 Adult depression screening assessment DEPRESSION SCREENING [facility] Start: 02-27-1960 3 comp foot exam completed DIABETIC FOOT EXAM [facility] Start: 02-27-1960 Diabetic foot examination Diabetes: Foot Exam [facility] Start: 02-27-1960 Glaucoma screening Diabetes: R etinopathy Screening [facility] Start: 02-27-1960 Hepatitis B screening URINE ALBUMIN:CREATININE RATIO [facility] Start: 02-27-1960 Hepatitis C antibody , confirmatory test DILATED RETINAL EXAM [facility] Start: 02-27-1960 Preventive dental service Diabetes: Dental Exam [facility] Start: 02-27-1956 PNEUMOCOCCAL: 65+ (1 - PCV) PNEUMOCOCCAL: 65+ (1 - PCV) [facility] Start: 1955 Hemoglobin A1c/Hemoglobin.total in Blood HBA1C [facility] Start: 1950 ABDOMINAL AORTIC ANEURYSM SCREENING ABDOMINAL AORTIC ANEURYSM SCREENING [facility] Start: 1950 Hemoglobin A1c measurement Diabetes: Hemoglobin A1C [facility] Start: 1950 Lipid panel Lipid Panel [facility] Start: 1950 Medicare Annual Wellness (AWV) Medicare Annual Wellness (AWV) [facility] Start: 1950 Screening for malign ant neoplasm of colon [facility] Bacteria identified in Blood by Culture [facility] Work Phone: Bacteria identified in Blood by Culture [facility] Work Phone: MR Lumbar spine [facility] XR SHOULDER GENERAL 3V OR MORE AP/TRUE AP/OTHER LEFT [facility] Work Phone: Comment on above: Ordered: 03/24/2022 XR SHOULDER GENERAL 3V OR MORE AP/TRUE AP/OTHER LEFT XR SHOULDER GENERAL 3V OR MORE AP/TRUE AP/OTHER LEFT Radiology Routine Chronic left shoulder pain Ordered: 04/14/2022 [facility] Work Phone: Comment on above: Ordered: 04/14/2022 [facility] Immunizations Immunization Date Immunization Notes Care Provider Debra flor 06-02-2015 Influenza virus vaccine [facility] Payers Date Payer Category Payer Self-pay [id number] 2021 Medicare supplementa l policy (as second payer) MMO MEDICARE SUPPLEMENT [id number] 2019 Unknown MMO MMO MEDICARE SUPPLEMENT [id number] 2019-Present [phone] [address] [place] [address] Indemnity [id number] 2019 Unknown MMO MMO MEDICARE SUPPLEMENT [id number] 2019-Present [phone] [address] [place] [address] Indemnity [id number] 2018 Medicare [id number] 2018 Medicare [id number] 2018 Private Health Insurance [id number] 2015 Medicare [id number] 2015 Medicare MEDICARE MEDICAR E A AND B [id number] 2015-Present [phone] [address] [address] [place] [address] Medicare [id number] 2015 Medicare [id number] 2015 Medicare [id number] 2014 Unknown [id number] 1950 Unknown [id number] .627 1950 Unknown [id number] 2.16.840.1.569243.3.579.2 .627 1950 Unknown [id number] 2.16.840.1.077583.3.579.2 .651 Medicare [id number] Unknown [id number] 2.16.840.1.018094.3.579.2 .462 Unknown [id number] 2.16.840.1.704931.3.579.2 .462 Unknown [id number] 2.16.840.1.673428.3.579.2 .462 Unknown [id number] 2.16.840.1.273307.3.579.2 .462 Unknown [id number] 2.16.840.1.939977.3.579.2 .462 Unknown [id number] 2.16.840.1.966952.3.579.2 .462 Unknown [id number] 2.16.840.1.901096.3.579.2 .462 Unknown [id number] 2.16.840.1.271033.3.579.2 .462 Unknown [id number] 2.16.840.1.522955.3.579.2 .462 Unknown [id number] 2.16.840.1.537323.3.579.2 .462 Unknown [id number] 2.16.840.1.038650.3.579.2 .462 Unknown [id number] 2.16.840.1.020097.3.579.2 .462 Unknown [id number] 2.16.840.1.103603.3.579.2 .462 Unknown [id number] 2.16.840.1.263348.3.579.2 .462 Social History Date Type Detail Facility Start: 07-13-2018 End: 09-17-2022 Tobacco smoking status NHIS Unknown if ever smoked [facility] Start: 07-22-[address] [facility] Start: 07-22-2015 None;- [facility] Start: 07-22-2015 Spouse/ Signif icant Other [facility] Start: 1950 Sex Assigned At Male [facility] Start: 12-16-2017 End: 03-05-2022 Tobacco smoking status NHIS Ex-smoker [facility] End: 09-05-1979 History of tobacco use Current smoker [facility] End: 09-05-1979 History of tobacco use Cigar Smoker [facility] Start: 12-16-2017 End: 07-03-2024 Tobacco use and exposure Smokeless tobacco non-user [facility] Start: 03-05-2022 End: 07-23-2024 Alcohol intake Current drinker of alcohol (finding) [facility] Start: 03-05-2022 End: 10-10-2024 Alcohol intake [facility] Start: 1950 Sex Assigned At Not on file [facility] Start: 02-23-2022 End: 06-25-2022 Exposure to SARS-CoV-2 (event) Not sure [facility] Start: 06-26-2024 End: 11-16-2024 Sex Male (finding) [facility] Start: 06-26-2024 Gender identity Identifies as male gender (finding) [facility] Start: 07-03-2024 End: 10-10-2024 Sexual orientation Not on file [facility] Start: 07-03-2024 End: 07-06-2024 Tobacco smoking status NHIS Never smoked tobacco [facility] Start: 07-03-2024 Alcohol Comment [facility] Medical Equipment Procedure Code Equipment Code Equipment Origin al Text Equipment Identifier Dates Head Rsp 32mm Ne utral Glenoid Retain Screw - [id number] Start: 03-19-2022 Stem Humeral Std Encore Reverse Shoulder [id number] - [id number] Start: 03-19-2022 Insert Rsp Djo Surgical Hxe+ Socket 32 Semiconstrain Sterile Humeral - [id number] Start: 03-19-2022 Baseplate Rsp P2 30mm Glenoid Sterile - [id number] Start: 03-19-2022 Screw Rsp 5mm 18 mm Bone Lock Glenoid Baseplate Shoulder - [id number] Start: 03-19-2022 Screw Rsp 5mm 18 mm Bone Lock Glenoid Baseplate Shoulder - [id number] Start: 03-19-2022 Screw Rsp 5mm 26 mm Bone Lock Glenoid Baseplate Shoulder - [id number] Start: 03-19-2022 Screw Rsp 5mm 30 mm Bone Lock Glenoid Baseplate Shoulder - [id number] Start: 03-19-2022 Clinical Notes 12-16-2017 to 06-14-2025 Clarence Rhoades MD - 10/10/2024 1:15 PM ESTTelephone Encounter - Roxanna Jackson RN - 10/08/2024 5:07 PM ESTTelephone Encounter - Roxanna Jackson RN - 10/08/2024 5:07 PM EST Note Date & Type Note Facility 06-14-2025 Progress note [facility] 06-14-2025 Radiology Diagnostic study note [facility] Imaging Services [address] [place] [address] L/S Spine Min 4 Views MR#: [id number] Acct: [id number] Name: AVERY VASQUEZ Rep #: [id number] : 1950 M 75 From: Agustin Kelley DO PCP: Dr. Aidan Argueta MD Status: DE P AMB Study:L/S Spine Min 4 Views Date of Exam: 06/14/25 Exam# [id number] Ordering Dr: Sven Haynes PROCEDURE: L/S SPINE MIN 4 VIEWS 06/14/2025 REASON FOR EXAM: CHRONIC BACK PAIN TECHNIQUE: Procedure Code: RADSPLS Modality: DX Procedure: L/S SPINE MIN 4 VIEWS COMPARISON: None FINDINGS: Four views of the lumbosacral spine were obtained and demonstrate diffuse osteopenia of the lumbar spine, sacrum and bony pelvis. No sacral fractures are noted. Very mild osteoarthritic changes are seen involving the SI joints bilaterally. There are 5 lumbar-type vertebral bodies below the last set of paired ribs. There is a dextroscoliosis of the lumbar spine. Moderate spondylosis of the lumbar spine is noted. There is loss of the normal lordotic lumbar curvature which may be secondary to muscle spasm or strain. The vertebral body heights are within normal limits. There is no spondylolysis. The vertebral body alignments are within normal limits. There is no spondylolisthesis. There is no instability on the flexion or extension views. There is juxta-articular sclerosis involving the inferior anterior endplate of the L4 vertebral body and superior anterior endplate of the L5 vertebral body. Degenerative disc disease is seen involving all levels. There is bony encroachment of the neural foramina at all levels. Moderate arteriosclerotic vascular disease is seen involving the abdominal aorta. RAD/L/S Spine Min 4 Views IMPRESSION: Moderate spondylosis of the lumbar spine. Degenerative disc disease involving the lumbar discs. There is bony encroachment of the neural foramina at all levels. Loss of the normal lordotic lumbar curvature. RECOMMENDATION: MRI of the lumbar spine may be of value, if clinically warranted, for further evaluation of the disc spaces, nerve roots and soft tissue structures in this patient who has abnormal plain film findings with low back pain. Reading Location: [facility] CC: TEDDY Godinez; Dr. Aidan Argueta MD ~ Gis Programmer: Signed [facility] 10-10-2024 History of Present illness Narrative Images from the original note were not included. [facility] [address], [address] [place], [place] [id number] Name: Avery Vasquez : 1950 Age: 74 y.o. Visit Date: 10/10/24 Reason for Visit: PE History of Present Illness: Avery Vasquez is a 74 y.o. male presenting for evaluation for PE. Patient has a past medical history of: - bilateral provoked segmental PE (07/06/24), completed 3 months of Eliquis - recent traumatic right SAH/SDH - DM2 with peripheral neuropathy - non-smoker Patient last evaluated by sc on 07/23/24. Patient was evaluated by inpatient consult service while admitted 07/06/24-07/12/24 for pre-syncope and chills in the setting of bilateral PE and Bacteroids BSI. Prior to this, he was admitted 06/26/24-06/27/24 after a traumatic injury from a cow resulting in right clavicle fracture, right ribs 2-3 fractures, and small traumatic right SAH/SDH. During his most recent admission, he was managed with heparin infusion and later switched to Eliquis, which he tolerated. Patient feels well overall today. He slipped on the ice a few weeks ago and landed on his left leg, had some bruising but otherwise no episodes of bleeding recently. He was recently treated for a UTI but no hematuria. He denies fever, chills, chest pain, shortness of breath, cough, orthopnea, hemoptysis, abdominal pain, nausea, vomiting, diarrhea, constipation, lightheadedness, dizziness, dysuria, hematuria, melena, hematochezia, leg pain, leg swelling. He is hemodynamically stable and in no acute distress. 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 No pertinent surgical history. Family History: No family history on file. No family status information on file. Social History: reports that he has never smoked. He has never used smokeless tobacco. He reports current alcohol use. He reports that he does not use drugs. Current Outpatient Medications Medication Instructions atorvastatin (LIPITOR) 10 mg, Nightly bacitracin 500 UNIT/GM ointment Topical, 3 times daily Calcium Carbonate-Vit D-Min (Calcium 600+D3 Plus Minerals) 600-800 MG-UNIT tablet 1 tablet, Daily dapagliflozin (FARXIGA) 10 mg, Daily glimepiride (AMARYL) 1 mg, Daily with breakfast metFORMIN (GLUCOPHAGE) 500 mg, 2 times daily with meals Multiple Vitamins-Minerals (MULTIVITAMIN ADULT, MINERALS, PO) 1 tablet, Daily sennosides (SENOKOT) 17.2 mg, Oral, 2 times daily tamsulosin (FLOMAX) 0.4 mg, Nightly Trulicity 0.75 mg, Weekly valsartan (DIOVAN) 160 mg, Oral, Daily Allergies Allergen Reactions Bactrim [Sulfamethoxazole-Trimethoprim] Hives Hydrocodone-Acetaminophen Nausea And Vomiting Lisinopril Cough Tramadol Rash and Dizziness Review of Symptoms: 10 systems reviewed and negative except as mentioned above. Physical Exam: Vitals: Blood pressure 128/78, pulse 85, height 5' 7 (1.702 m), weight 227 lb (103 kg), SpO2 94%. General: AAOx3, NAD, pt is comfortable HEENT: normocephalic, no obvious trauma, moist oral and nasal mucosa, conjunctivae/corneas clear RESPIRATORY: clear to auscultation bilaterally, no wheezing, no crackles CARDIOVASCULAR: +S1/S2, RRR, no murmurs, no rubs, no gallops, no obvious JVD, peripheral pulses palpable in UE and LE GASTROINTESTINAL: soft, nondistended, nontender, normal bowel sounds MUSCULOSKELETAL: no obvious deformities noted, no edema in b/l LE SKIN: warm and dry, intact, without obvious lesions NEUROLOGICAL: no gross motor deficits PSYCHIATRIC: appropriate to circumstances LYMPHATIC: no palpable lymphadenopathy Data Review: Labs No results for input(s): WBC, HGB, HCT in the last 72 hours. No lab exists for component: PLAT No results for input(s): NA, K, CL, CO2, GLUCOSE, BUN, CREATININE, EGFR, CALCIUM, ALBUMIN, ALK, AST, ALT, PTT, INR in the last 72 hours. No lab exists for component: TP, TBILI No PFT on file CTA chest (07/06/24) - [facility] IMPRESSION: Study positive for pulmonary emboli in segmental branches to the bilateral lower lobes, right upper lobe and lingula. I have personally reviewed all pertinent labs and imaging. Assessment & Plan: Bilateral PE, provoked - outside CTA chest 07/06/24 from [place] reviewed in PACS, bilateral segmental filling defects identified along with cardiomegaly and increased main PA diameter, no obvious nodules/masses - he was started on heparin infusion appropriately given recent traumatic SAH/SDH, repeat head CT 07/08/24 showed tiny right parietal SDH unchanged and no new areas of bleeding - inpatient consult service evaluated patient and recommended at least 3 months of anticoagulation, event was likely provoked given preceding trauma - after an in-depth discussion regarding the duration and risks/benefits of anticoagulation, patient agreed to complete anticoagulation with Eliquis for 3 months, which is appropriate, last day of treatment is tomorrow - no further workup needed from a pulmonary standpoint, patient can follow-up as needed, instructed to call and make an appointment if he develops any issues related to his breathing Clarence Rhoades MD Pulmonary & Critical Care Medicine [facility] documented in this encounter [facility] 10-08-2024 Telephone encounter Note Phone call to patient and relayed to him that provider did want to see him at least one more time before releasing him from routine care. He verbalized agreement and will keep appt as scheduled. [facility] 10-08-2024 Miscellaneous Notes Phone call to patient and relayed to him that provider did want to see him at least one more time before releasing him from routine care. He verbalized agreement and will keep appt as scheduled. Yes I would like to see patient one more time to review any symptoms and confirm treatment duration of anticoagulation (should be finished with 3 months of Eliquis). Thank you. Per progress note from July office visit provider plan was to see patient in 3-6 months. Will ask if patient needs to keep appointment 10/10/24. Name of caller: Avery Contact phone number: [phone] Relationship to Patient: patient Provider: Practice: Chief Complaint/Reason for Call: Patient calling to see why he is scheduled. Patient states at his July appointment he was told he did not need a follow up. Please advise. Best time of day caller can be reached: any Patient advised that office/PCP has 24-48 business hours to return their call: no documented in this encounter [facility] 10-08-2024 Telephone encounter Note Yes I would like to see patient one more time to review any symptoms and confirm treatment duration of anticoagulation (should be finished with 3 months of Eliquis). Thank you. [facility] Work Phone: 10-08-2024 Note Per progress note fr July office visit provider plan was to see patient in 3-6 months. Will ask if patient needs to keep appointment 10/10/24. [facility] 10-08-2024 Telephone encounter Note Per progress note from July office visit provider plan was to see patient in 3-6 months. Will ask if patient needs to keep appointment 10/10/24. [facility] 10-08-2024 Telephone encounter Note Name of caller: Avery Contact phone number: [phone] Relationship to Patient: patient Provider: Practice: Chief Complaint/Reason for Call: Patient calling to see why he is scheduled. Patient states at his July appointment he was told he did not need a follow up. Please advise. Best time of day caller can be reached: any Patient advised that office/PCP has 24-48 business hours to return their call: no [facility] 07-26-2024 Evaluation note Diagnosis Onset Date Resolution Right clavicle fracture acute July 26, 024 8:16am Acute cystitis acute September 232024 7:58am [facility] Work Phone: 1(537) 482-993611-19-2024 Telephone encounter Note* Telephone Encounter - Melina Flores RN - 07/24/2024 12:41 PM EST Relayed information to patient, and he verbalized understanding. [id number] Miscellaneous Notes* Telephone Encounter - Melina Flores RN - 07/24/2024 12:41 PM EST Relayed information to patient, and he verbalized understanding. * Telephone Encounter - Shaggy Saucedo PA-C - 07/24/2024 12:03 PM EST Discussed with Dr Myers. CT head from the hospital on 07/08 appears stable with no new hemorrhage. He may follow up with us on an as needed basis. * Telephone Encounter - Melina Flores RN - 07/23/2024 9:19 AM EST Patient reports having a CT of head during a hospital admission 07/06-07/12. Patient states this was not related to previous incident that occurred the beginning of June. He would like to know if CTof head obtained 07/06 will suffice, and if he could cancel CT and follow up appointment. He would prefer not having to travel back to the area to get imaging or for follow up appointment as he is an hour away. He denies any symptoms such as headaches. documented in this [facility] [id number] Telephone encounter Note* Telephone Encounter - Shaggy Saucedo PA-C - 07/24/2024 12:03 PM EST Discussed with Dr Myers. CT head from the hospital on 07/08 appears stable with no new hemorrhage. He may follow up with us on an as needed basis. [facility] Work Phone: 1(315) 605-392211-18-2024 History of Present illness Narrative* Clarence Rhoades MD - 07/23/2024 1:00 PM EST Images from the original note were not included. [facility] [address], [address] [place], [place] [id number] Name: Avery Vasquez : 1950 Age: 74 y.o. Visit Date: 07/23/24 Reason for Visit: PE History of Present Illness: Avery Vasquez is a very pleasant 74 y.o. male presenting for evaluation for PE. Patient has a past medical history of: - bilateral segmental PE (07/06/24) on Eliquis - recent traumatic right SAH/SDH - DM2 with peripheral neuropathy - non-smoker Patient is new to the [facility], patient was evaluated by inpatient consult service while admitted 07/06/24-07/12/24 for pre-syncope and chills in the setting of bilateral PE and BacteroidsBSI. Prior to this, he was admitted 06/26/24-06/27/24 after a traumatic injury from a cow resultingin right clavicle fracture, right ribs 2-3 fractures, and small traumatic right SAH/SDH. During hismost recent admission, he was managed with heparin infusion and later switched to Eliquis, which hetolerated. Today, patient presents with his . He feels well overall today, much improved compared to recent admission. He is tolerating Eliquis well. He denies fever, chills, chest pain, shortness of breath, cough, orthopnea, hemoptysis, abdominal pain, nausea, vomiting, diarrhea, constipation, lightheadedness, dizziness, dysuria, hematuria, melena, hematochezia, leg swelling. He has some right shoulder/arm discomfort related to recent fractures but no new areas of bruising. He is hemodynamically stable and in no acute distress. 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 No pertinent surgical history. Family History: No family history on file. No family status information on file. Social History: reports that he has never smoked. He has never used smokeless tobacco. He reports current alcohol use. He reports that he does not use drugs. Current Outpatient Medications Medication Instructions apixaban (ELIQUIS) 5 mg, Oral, 2 times daily atorvastatin (LIPITOR) 10 mg, Nightly bacitracin 500 UNIT/GM ointment Topical, 3 times daily Calcium Carbonate-Vit D-Min (Calcium 600+D3 Plus Minerals) 600-800 MG-UNIT tablet 1 tablet, Daily dapagliflozin (FARXIGA) 10 mg, Daily glimepiride (AMARYL) 1 mg, Daily with breakfast metFORMIN (GLUCOPHAGE) 500 mg, 2 times daily with meals Multiple Vitamins-Minerals (MULTIVITAMIN ADULT, MINERALS, PO) 1 tablet, Daily sennosides (SENOKOT) 17.2 mg, Oral, 2 times daily tamsulosin (FLOMAX) 0.4 mg, Nightly Trulicity 0.75 mg, Weekly valsartan (DIOVAN) 160 mg, Oral, Daily Allergies Allergen Reactions Bactrim [Sulfamethoxazole-Trimethoprim] Hives Hydrocodone-Acetaminophen Nausea And Vomiting Lisinopril Cough Tramadol Rash and Dizziness Review of Symptoms: 10 systems reviewed and negative except as mentioned above. Physical Exam: Vitals: Blood pressure 127/79, pulse 87, height 5' 7 (1.702 m), weight 226 lb (103 kg), SpO2 94%. General: AAOx3, NAD, pt is comfortable HEENT: normocephalic, no obvious trauma, moist oral and nasal mucosa, conjunctivae/corneas clear RESPIRATORY: clear to auscultation bilaterally, no wheezing, no crackles CARDIOVASCULAR: +S1/S2, RRR, no murmurs, no rubs, no gallops, no obvious JVD, peripheral pulses palpable in UE and LE GASTROINTESTINAL: soft, nondistended, nontender, normal bowel sounds MUSCULOSKELETAL: no obvious deformities noted, no edema in b/l LE SKIN: warm and dry, intact, without obvious lesions NEUROLOGICAL: no gross motor deficits PSYCHIATRIC: appropriate to circumstances LYMPHATIC: no palpable lymphadenopathy Data Review: Labs No results for input(s): WBC, HGB, HCT in the last 72 hours. No lab exists for component: PLAT No results for input(s): NA, K, CL, CO2, GLUCOSE, BUN, CREATININE, EGFR, CALCIUM,ALBUMIN, ALK, AST, ALT, PTT, INR in the last 72 hours. No lab exists for component: TP, TBILI No PFT on file CTA chest (07/06/24) - [facility] IMPRESSION: Study positive for pulmonary emboli in segmental branches to the bilateral lower lobes, right upperlobe and lingula. I have personally reviewed all pertinent labs and imaging. Assessment & Plan: Bilateral PE, provoked - outside CTA chest 07/06/24 from [place] reviewed in PACS, bilateral segmental filling defects identified along with cardiomegaly and increased main PA diameter, no obvious nodules/masses - he was started on heparin infusion appropriately given recent traumatic SAH/SDH, repeat head CT 07/08/24 showed tiny right parietal SDH unchanged and no new areas of bleeding - inpatient consult service evaluated patient and recommended at least 3 months of anticoagulation,event was likely provoked given preceding trauma - after an in-depth discussion regarding the duration and risks/benefits of anticoagulation, patient agreed to continue anticoagulation with Eliquis for 3 months, which is appropriate - tentative stop date for Eliquis: 10/05/24 - instructed patient to call for refills if needed prior to stop date - follow-up in 3-6 months or sooner if needed Clarence Rhoades MD Pulmonary & Critical Care Medicine [facility] documented in this [facility]11-18-2024 Telephone encounter Note* Telephone Encounter - Melina Flores RN - 07/23/2024 9:19 AM EST Patient reports having a CT of head during a hospital admission 07/06-07/12. Patient states this was not related to previous incident that occurred the beginning of June. He would like to know if CTof head obtained 07/06 will suffice, and if he could cancel CT and follow up appointment. He would prefer not having to travel back to the area to get imaging or for follow up appointment as he is an hour away. He denies any symptoms such as headaches. [id number] Telephone encounter Note* Telephone Encounter - Roxanna Jackson RN - 07/12/2024 2:21 PM EST PC to patient to schedule a follow up appointment however call dropped and repeat attempts went to voicemail. Patient currently admitted at [facility]. He returned call to the office from hospital phone reporting that his cell phone does not carry a signal. HFU scheduled in [place] with Dr. Rhoaeds per location request. Patient request appointment reminder be emailed to him at email on file in EMR. [phone] Miscellaneous Notes* Telephone Encounter - Roxanna Jackson RN - 07/12/2024 2:21 PM EST PC to patient to schedule a follow up appointment however call dropped and repeat attempts went to voicemail. Patient currently admitted at [facility]. He returned call to the office from hospital phone reporting that his cell phone does not carry a signal. HFU scheduled in [place] with Dr. Rhoades per location request. Patient request appointment reminder be emailed to him at email on file in EMR. * Telephone Encounter - Sam Dupont DO - 07/09/2024 11:32 AM EST Patient with pulmonary emboli, started on eliquis. Needs follow up for pulmonary emboli in 2 weeks.Patient lives in [place] and would like to go to [place]. Thanks. documented in this [facility]11-07-2024 [facility] - Infectious Diseases Attending Progress Note Subjective: ID following for Bacteroides pyogenes BSI- no new complaints, feels better, denies cough/CP/SOB. No N/V/abdominal pain. Wants to go home,primary caregiver to his . Objective: Vitals: Patient Vitals for the past 24 hrs: BP Temp Temp src Pulse Resp SpO2 Weight 07/12/24 1000 113/78 36.6 ?C (97.8 ?F) Temporal 82 18 93 % -- 07/12/24 0643 132/75 36.4 ?C (97.6 ?F) Temporal 80 16 98 % -- 07/12/24 0213 116/81 36.9 ?C (98.4 ?F) Temporal 75 15 93 % -- 07/11/24 2222 144/91 36.6 ?C (97.8 ?F) Temporal 83 12 94 % -- 07/11/24 1951 144/76 36.6 ?C (97.8 ?F) Temporal 81 16 94 % 107 kg (235 lb 3.7 oz) 07/11/24 1600 135/89 36.2 ?C (97.2 ?F) Temporal 81 17 93 % -- Physical Exam Vitals reviewed. Constitutional: General: He is not in acute distress. Appearance: Normal appearance. He is not ill-appearing. Cardiovascular: Rate and Rhythm: Normal rate and regular rhythm. Pulses: Normal pulses. Heart sounds: Normal heart sounds. No murmur heard. Pulmonary: Effort: Pulmonary effort is normal. No respiratory distress. Breath sounds: Normal breath sounds. Musculoskeletal: General: Deformity (R shoulder ecchymosis- evolving, r arm in a sling) present. Skin: Coloration: Skin is not jaundiced. Neurological: General: No focal deficit present. Mental Status: He is alert and oriented to person, place, and time. Psychiatric: Mood and Affect: Mood normal. Thought Content: Thought content normal. Labs: Lab Results Component Value Date/Time NA 137 07/12/2024129 K 4.2 07/12/2024129 CL 108 (H) 07/12/2024129 CO2 21 (L) 07/12/2024129 BUN 15 07/12/2024129 CREATININE 0.84 07/12/2024129 GLUCOSE 143 (H) 07/12/2024129 CALCIUM 9.6 07/12/2024129 PROT 6.1 (L) 07/07/2024 183 BILITOT 0.6 07/07/2024 183 ALKPHOS 75 07/07/2024 1838 AST 35 07/07/2024 1838 ALT 45 07/07/2024 1838 PROCAL 18.08 (H) 07/08/2024 0639 PROCAL 15.61 (H) 07/07/2024 0643 Lab Results Component Value Date/Time WBC 7.9 07/12/2024129 HGB 10.7 (L) 07/12/2024129 HGB 12.7 07/07/2024 1823 HCT 32.6 (L) 07/12/2024129 PLT 269 07/12/2024129 LYMPHOPCT 14.2 (L) 06/27/202435 MONOPCT 11.0 06/27/202435 BASOPCT 0.2 06/27/202435 NEUTROABS 7.7 (H) 06/27/202435 Micro: 07/11 BC pending 07/08 BC: Bacteroides pyogenes Lines: PIV Radiography/Echo/Other: reviewed Antimicrobials, Start/End Dates: PIptazo Impression: 74 M admitted for: Presyncopal event, weakness- multifactorial also diagnosed with- BActeroides sepsis- usual animal yamilet, and skin likely portal,after traumatic injury from 2 weeks ago. No GI symptoms. B/l PE- from traumatic injuries- provoked, on Eliquis now SAH- and superficial scalp laceration- stable, healing H influenzae+ PCR, but resp culture unremarkable so far- unclear significance. Should be covered by antibiotic already. +Troponins- demand ischemia likely Leukocytosis, improving, on empiric antibiotics already Overall clinically improving. Plan: Reasonable to de-escalate to amox-clav and finish 14 d course to 07/22. Case d/w Surgery team. OK to [place] home from ID standpoint.[facility]11-07-2024 History of Present illness Narrative* Washington Elkins MD - 07/12/2024 1:23 PM EST [facility] - Infectious Diseases Attending Progress Note Subjective: ID following for Bacteroides pyogenes BSI- no new complaints, feels better, denies cough/CP/SOB. NoN/V/abdominal pain. Wants to go home,primary caregiver to his . Objective: Vitals: Patient Vitals for the past 24 hrs: BP Temp Temp src Pulse Resp SpO2 Weight 07/12/24 1000 113/78 36.6 C (97.8 F) Temporal 82 18 93 % -- 07/12/24 0643 132/75 36.4 C (97.6 F) Temporal 80 16 98 % -- 07/12/24 0213 116/81 36.9 C (98.4 F) Temporal 75 15 93 % -- 07/11/24 2222 144/91 36.6 C (97.8 F) Temporal 83 12 94 % -- 07/11/24 1951 144/76 36.6 C (97.8 F) Temporal 81 16 94 % 107 kg (235 lb 3.7 oz) 07/11/24 1600 135/89 36.2 C (97.2 F) Temporal 81 17 93 % -- Physical Exam Vitals reviewed. Constitutional: General: He is not in acute distress. Appearance: Normal appearance. He is not ill-appearing. Cardiovascular: Rate and Rhythm: Normal rate and regular rhythm. Pulses: Normal pulses. Heart sounds: Normal heart sounds. No murmur heard. Pulmonary: Effort: Pulmonary effort is normal. No respiratory distress. Breath sounds: Normal breath sounds. Musculoskeletal: General: Deformity (R shoulder ecchymosis- evolving, r arm in a sling) present. Skin: Coloration: Skin is not jaundiced. Neurological: General: No focal deficit present. Mental Status: He is alert and oriented to person, place, and time. Psychiatric: Mood and Affect: Mood normal. Thought Content: Thought content normal. Labs: Lab Results Component Value Date/Time NA 137 07/12/2024129 K 4.2 07/12/2024129 CL 108 (H) 07/12/2024129 CO2 21 (L) 07/12/2024129 BUN 15 07/12/2024129 CREATININE 0.84 07/12/2024129 GLUCOSE 143 (H) 07/12/2024129 CALCIUM 9.6 07/12/2024129 PROT 6.1 (L) 07/07/2024 1838 BILITOT 0.6 07/07/2024 1838 ALKPHOS 75 07/07/2024 1838 AST 35 07/07/2024 1838 ALT 45 07/07/2024 1838 PROCAL 18.08 (H) 07/08/2024 0639 PROCAL 15.61 (H) 07/07/2024 0643 Lab Results Component Value Date/Time WBC 7.9 07/12/2024129 HGB 10.7 (L) 07/12/2024129 HGB 12.7 07/07/2024 1823 HCT 32.6 (L) 07/12/2024129 PLT 269 07/12/2024129 LYMPHOPCT 14.2 (L) 06/27/202435 MONOPCT 11.0 06/27/202435 BASOPCT 0.2 06/27/202435 NEUTROABS 7.7 (H) 06/27/202435 Micro: 07/11 BC pending 07/08 BC: Bacteroides pyogenes Lines: PIV Radiography/Echo/Other: reviewed Antimicrobials, Start/End Dates: PIptazo Impression: 74 M admitted for: Presyncopal event, weakness- multifactorial also diagnosed with- BActeroides sepsis- usual animal yamilet, and skin likely portal,after traumatic injury from 2 weeks ago. No GI symptoms. B/l PE- from traumatic injuries- provoked, on Eliquis now SAH- and superficial scalp laceration- stable, healing H influenzae+ PCR, but resp culture unremarkable so far- unclear significance. Should be covered byantibiotic already. +Troponins- demand ischemia likely Leukocytosis, improving, on empiric antibiotics already Overall clinically improving. Plan: Reasonable to de-escalate to amox-clav and finish 14 d course to 07/22. Case d/w Surgery team. OK to [place] home from ID standpoint. * Jeny Arshad - 07/12/2024 10:22 AM EST Nutrition update completed. Chart reviewed. Patient to be monitored and followed by the diet records technician. CODY Mitchell * Katina Prather, HOOKER LASTER - 07/12/2024 9:43 AM EST Images from the original note were not included. PHYSICAL THERAPY [facility] Treatment Note Name/MRN: Avery Vasquez ([id number]) Date of : 1950 Age: 74 y.o. Room/Bed: W3-327/W3-327 B Discharge Recommendation: Home with assist PRN, Home with Home health PT Equipment Needed: No Prior Level of Function Prior Level of ADL Function: Independent Prior Level of Mobility: Independent; Device: Straight Cane Prior Level of Transfers: Independent Assessment Pt mod assist for transfer from lower surface. Pt has lift chair at home and it sits higher than recliner chair in pt room. Built chair up with waffle cushion and blankets, pt able to progress to minassist. SBA for gait. No LOB or c/o dizziness. Occasional cues for NWB RUE. Adjusted sling for better fit. Rec home with assist and home PT upon discharge. Subjective Pt in bed chair, agreeable to PT. States he had a rough night. Wants to go home. Pain: Arndt-Cuellar Pain Ratin = Hurts even more Pain Location: RUE Medical Precautions: No active isolations Proper PPE donned/doffed in accordance with facility standards. Fall Risk: Mcguire Fall Risk Score: 85 (High Risk) Precautions/Restrictions: Braces or Orthoses: sling R UE Right UE Weight Bearing: Non-Weight Bearing Lines/Drains/Airways: ICU telemetry, Fall Precautions Overall Cognitive Status: WNL Overall Orientation Status: Oriented x4 Family/Caregiver Present: none Objective Transfers/Mobility Sit to stand: Mod Assist Stand to sit: SBA X 3 reps; chair x2 and toilet. 1st trial with chair pt mod assist. Higher surface (toilet and chair built up pt able to progress to min/SBA). Occasional cues for NWB RUE. Device(s) used: Straight Cane Ambulation Ambulation 1 Assistive device(s) used: Straight Cane Assist level: SBA Distance (ft): 50ft +30ft Quality of gait: slow josh Ambulation 2 Assistive device(s) used: Straight Cane Assist level: SBA Distance (ft): 25ft Quality of gait: slow josh Balance During Session: Posture: standing with cane, no c/o dizziness or LOB, SBA. Dynamic standing for hand hygiene, SBA. Plan Continue acute PT per plan of care. Safety/Education Safety Safety Devices in place: call light within reach, left in chair, gait belt, and no alarms engaged upon entry Restraints: No Education Education Given To: patient Education Provided: PT Goals, Gait Training, Plan of Care, Transfer Training, Fall Prevention Education, Discharge Recommendations, and Benefits of Increasing Activity Education Method: Verbal Barriers to Learning: None Education Outcome: Verbalized Understanding Outcome Measures AM-PAC AM-PAC Inpatient Mobility Raw Score (No Stairs) : 15 JH-HLM JH-HLM Score: Walked 25 ft or more (i.e. walked outside of room) Goals Patient Stated Goal: to go home Encounter Problems Encounter Problems (Active) Mobility Patient will ambulate 100 feet with supervision and straight cane in order to improve safety and independence with mobility. (Progressing) Start: 07/09/24 Expected End: 08/06/24 Patient will ascend and descend entry stairs with least restrictive device and supervision in orderto safely negotiate home. (Not Addressed) Start: 07/09/24 Expected End: 08/06/24 Pain - Adult Transfers Patient will perform bed mobility with supervision in order to improve independence and prepare forout of bed mobility. (Not Addressed) Start: 07/09/24 Expected End: 08/06/24 Patient will complete sit to stand transfer with supervision to straight cane in order to improve safety and prepare for out of bed mobility. (Progressing) Start: 07/09/24 Expected End: 08/06/24 Therapy Time Individual Co-treatment Time In 906 Time Out 0943 Minutes 36 Timed Code Treatment Minutes: 36 Minutes (gait; fa) Katina Prather PTA Cosigned by Mukund Murphy PT at 07/12/2024 11:57 AM EST * Washington Elkins MD - 07/11/2024 11:46 AM EST [facility] - Infectious Diseases Attending Progress Note Subjective: No acute events, afebrile, denies CP cough or SOB. Reports bruising continues to heal to his L thigh. Overall feels better. Objective: Vitals: Patient Vitals for the past 24 hrs: BP Temp Temp src Pulse Resp SpO2 07/11/24 0753 152/71 36.2 C (97.1 F) Temporal 90 19 94 % 07/11/24 0000 118/85 36.8 C (98.2 F) -- 75 21 93 % 07/10/24 2302 -- -- -- 77 22 96 % 07/10/24 2000 100/78 36.7 C (98.1 F) -- 85 22 94 % 07/10/24 1900 -- -- -- 83 25 96 % 07/10/24 1800 -- -- -- 74 17 94 % 07/10/24 1600 142/77 -- -- 78 21 95 % 07/10/24 1500 -- -- -- 79 24 95 % 07/10/24 1400 -- 36.4 C (97.6 F) Temporal 82 19 95 % 07/10/24 1300 -- -- -- 74 14 96 % 07/10/24 1200 115/74 -- -- 79 16 96 % Physical Exam Vitals reviewed. Constitutional: General: He is not in acute distress. Appearance: He is not ill-appearing. HENT: Head: Comments: scalp wound on R healing. Eyes: Extraocular Movements: Extraocular movements intact. Cardiovascular: Rate and Rhythm: Normal rate and regular rhythm. Pulses: Normal pulses. Heart sounds: Normal heart sounds. No murmur heard. Pulmonary: Effort: Pulmonary effort is normal. No respiratory distress. Breath sounds: Normal breath sounds. Musculoskeletal: General: Swelling (unchanged to L thigh, ecchymoses healing distally) present. Skin: Findings: No erythema. Neurological: General: No focal deficit present. Mental Status: He is alert and oriented to person, place, and time. Psychiatric: Mood and Affect: Mood normal. Thought Content: Thought content normal. Labs: Lab Results Component Value Date/Time NA 134 (L) 07/11/2024456 K 4.1 07/11/2024456 CL 108 (H) 07/11/2024456 CO2 20 (L) 07/11/2024456 BUN 16 07/11/2024456 CREATININE 0.74 07/11/2024456 GLUCOSE 149 (H) 07/11/2024456 CALCIUM 9.5 07/11/2024456 PROT 6.1 (L) 07/07/20241837 BILITOT 0.6 07/07/2024 183 ALKPHOS 75 07/07/2024 1838 AST 35 07/07/2024 1838 ALT 45 07/07/2024 1838 PROCAL 18.08 (H) 07/08/202439 PROCAL 15.61 (H) 07/07/202443 Lab Results Component Value Date/Time WBC 6.8 07/11/2024456 HGB 10.6 (L) 07/11/2024456 HGB 12.7 07/07/2024 182 HCT 32.2 (L) 07/11/2024456 PLT 224 07/11/2024456 LYMPHOPCT 14.2 (L) 06/27/202435 MONOPCT 11.0 06/27/202435 BASOPCT 0.2 06/27/202435 NEUTROABS 7.7 (H) 06/27/202435 Micro: 07/10 Resp cx: pending ( PNA PCR+ H influenzae) UAgs: neg RVP: neg 07/08 BC: Bacteroides pyogenes UA neg Lines: PIV Radiography/Echo/Other: reviewed Antimicrobials, Start/End Dates: Vancomycin dc'd PIptazo Impression: 74 M admitted for: Presyncopal event, weakness- multifactorial also diagnosed with- BActeroides sepsis- usual animal yamilet, and skin likely portal,after traumatic injury from 2 weeks ago. No GI symptoms. B/l PE- from traumatic injuries- provoked, on Eliquis now SAH- and superficial scalp laceration- stable, healing H influenzae+ PCR, but resp culture unremarkable so far- unclear significance. Should be covered byantibiotic already. +Troponins- demand ischemia likely Leukocytosis, improving, on empiric antibiotics already Overall clinically improving. Plan: Same regimen for now. Recheck BC for clearance. Should have po options once ready for discharge. Will follow. * Alisha Chowdhury, PT - 07/11/2024 9:37 AM EST Images from the original note were not included. PHYSICAL THERAPY [facility] Treatment Note Name/MRN: Avery Vasquez ([id number]) Date of : 1950 Age: 74 y.o. Room/Bed: T2-/T2 A Discharge Recommendation: Home with assist PRN, Home with Home health PT Equipment Needed: No Prior Level of Function Prior Level of ADL Function: Independent Prior Level of Mobility: Independent; Device: Straight Cane Prior Level of Transfers: Independent Assessment Pt min assist to stand by assist for transfers. Pt stand by assist to contact guard assist for ambulation and steps. Recommend home with assist and home PT. Subjective Pt reclined in chair. Agreeable to PT. RN okayed PT. Pain: ribs and clavicle Medical Precautions: No active isolations Proper PPE donned/doffed in accordance with facility standards. Fall Risk: Mcguire Fall Risk Score: 70 (High Risk) Precautions/Restrictions: Braces or Orthoses: sling R UE Right UE Weight Bearing: Non-Weight Bearing Lines/Drains/Airways: ICU telemetry, Fall Precautions Overall Cognitive Status: Exceptions - Arousal/alertness: appropriate responses to stimuli - Following commands: follows one step commands consistently - Safety judgement: + chair alarm Overall Orientation Status: Oriented to Person Family/Caregiver Present: none Objective Transfers/Mobility Sit to stand: Min Assist Stand to sit: SBA Min assist for 1st sit to stand from recliner. Stand by assist for 2nd and 3rd stance from recliner Device(s) used: Straight Cane Ambulation Ambulation 1 Assistive device(s) used: Straight Cane Assist level: SBA, Contact Guard Distance (ft): 220ft Quality of gait: flexed posture, decreased step length, slow josh, steadiness improves with gaitdistance Balance During Session: Static stance with cane with contact guard assist to stand by assist. Stairs Stairs 1 Assistive device(s) used: None Assist level: SBA, Contact Guard # of steps: 6 Rails: left Additional factors: non-reciprocal going up, non-reciprocal going down Plan Continue acute PT per plan of care. Safety/Education Safety Safety Devices in place: call light within reach, left in chair, chair alarm in place, and gait belt Restraints: No Education Education Given To: patient Education Provided: PT Role and Discharge Recommendations Education Method: Verbal Barriers to Learning: Education Outcome: Outcome Measures AM-PAC AM-PAC Inpatient Mobility Raw Score : 20 AM-PAC Inpatient Mobility Raw Score (No Stairs) : 16 JH-HLM JH-HLM Score: Walked 25 ft or more (i.e. walked outside of room) Goals Patient Stated Goal: to go home Encounter Problems Encounter Problems (Active) Mobility Patient will ambulate 100 feet with supervision and straight cane in order to improve safety and independence with mobility. (Progressing) Start: 07/09/24 Expected End: 08/06/24 Patient will ascend and descend entry stairs with least restrictive device and supervision in orderto safely negotiate home. (Progressing) Start: 07/09/24 Expected End: 08/06/24 Pain - Adult Transfers Patient will perform bed mobility with supervision in order to improve independence and prepare forout of bed mobility. (Not Addressed) Start: 07/09/24 Expected End: 08/06/24 Patient will complete sit to stand transfer with supervision to straight cane in order to improve safety and prepare for out of bed mobility. (Progressing) Start: 07/09/24 Expected End: 08/06/24 Therapy Time Individual Co-treatment Time In 0842 Time Out 0910 Minutes 28 Gait, FA Alisha Chowdhury, PT * Laquita Thomas RPh - 07/10/2024 11:32 AM EST Vancomycin therapy has been discontinued by Leny Hughes DO on 07/10/24. Thank you for the consult. Pharmacy signing off for vancomycin dosing. Laquita Thomas RPh, PharmD Date: 07/10/24 Time: 11:32 AM * Yuly Constantino PT - 07/10/2024 11:06 AM EST Images from the original note were not included. PHYSICAL THERAPY [facility] Treatment Note Name/MRN: Avery Vasquez ([id number]) Date of : 1950 Age: 74 y.o. Room/Bed: T2/T2 A Discharge Recommendation: Home with assist PRN, Home with Home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 COMPARISON: 07/07/2024 FINDINGS: Heart size is within normal limits. There is coarsening of the interstitial lung markings which is at least partially chronic. There may be mild superimposed pulmonary vascular congestion. There are degenerative changes of the thoracic spine. There is a mildly displaced left clavicular fracture. 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 Impression: No significant change from the prior exam. Report Dictated on Electronically Signed By: Constantine Vargas MD Electronically Signed Date/Time: 07/08/2024 8:02 AM EST ECG 12 lead Sinus rhythm Nonspecific intraventricular conduction delay CT head wo IV contrast Patient Name: AVERY VASQUEZ : 1950 Exam Date/Time: 07/08/2024 04:38 Procedure: CT HEAD WO IV CONTRAST Ordering Provider: STOVALL KATIE Reason For Exam: s/p heparin drip initiation HISTORY: Status post heparin drip initiation. Noncontrast CT is performed. Dose reduction was performed with automated exposure control. Comparison study from 07/07/2024. FINDINGS: 1. Since last exam 22.5 hours ago no definite interval change is seen --- no areas of new intracranial hemorrhage are seen with stable left-sided hygroma, tiny right parietal subdural hematoma unchanged Report Dictated on Electronically Signed By: Adolfo Turner MD Electronically Signed Date/Time: 07/08/2024 4:46 AM EST Patient Active Problem List Diagnosis Intracranial bleeding (HCC) Closed fracture of multiple ribs of right side with routine healing Traumatic closed fracture of distal clavicle with minimal displacement, right, initial encounter Acute pulmonary embolism without acute cor pulmonale, unspecified pulmonary embolism type (HCC) Assessment & Plan: Neuro / Spine Hx traumatic SAH - Pain control: Tylenol 1000mg Q8H, Oxycodone 5/10 mg Q4H PRN - Elevate HOB 30 degrees - Repeat CTH stable - NCC signed off HEENT Scalp hematoma - Petroleum jelly Cardiovascular HTN/HLD - Hemodynamically stable - Labetalol/hydralazine PRN - Telemetry - Home meds: Valsartan 160 mg BID, Lipitor 10 mg nightly - TTE with RV dilation, EF 63% Pulmonary Acute hypoxic respiratory failure Acute segmental bilateral PE Right rib fractures - Standard O2 protocol - Incentive spirometry - DuoNebs PRN - Pulmonology following - Recommend 3 months of oral anticoagulation - Outpatient follow up with PE clinic - Duplex bilateral LE negative for DVT - Heparin gtt transitioned to Eliquis 5mg BID FEN/GI Constipation - Regular diet - Zofran PRN - Bowel regimen: Senna BID, Miralax daily, Dulcolax daily Hyponatremia BPH - Monitor I/Os - Goal UOP > 0.5 ml/kg/hr - Daily BMP - Tamsulosin 0.4mg nightly Endocrine T2DM - Home meds: Trulicity, Metformin, Glimepiride - Currently held - POCT glucose - MDSSI Heme - Hgb stable - No transfusions indicated - Daily CBC ID Leukocytosis - No antibiotics indicated - Procalcitonin elevated - BC from [place] positive for gram positive cocci, gram negative cocci - UA negative - BC pending - Respiratory PCR negative MSK R clavicle fracture - NWB RUE - Sling for comfort - Outpatient Ortho follow up Lines/Devices: - PIV Prophylaxis: DVT: SCDs, oral Eliquis Has DVT PPX been started? Yes If no, why? GI: Pressure Ulcer: Continue to monitor, q2 turns Musculoskeletal: - PT/OT - Activity up with assistance - All extremities AT Is the patient in restraints?: No Medications Reconciled- Yes [x] NO [] Disposition: Transfer to the floor Elsy Diego DO Emergency Medicine Resident 07/09/24 6:16 AM This note may have been dictated using [employer] Practice Edition 2.6 and/or [employer] Voice Recognition Feature. The document was proofread; however, unrecognized voice recognition staff nurse icu resource team errors may be present. * Mercedes Warren RCP - 07/08/2024 12:58 PM EST [facility] Respiratory Care Department Progress Note As part of the Respiratory Assessment Program (RAP), the following Respiratory Therapist evaluationhas been completed, including a chart review and clinical/physical assessment. Respiratory Therapist RAP Evaluation Guideline Points 0 1 2 3 4 Points Strongly Consider History Factor No Pulmonary conditions Stable Pulmonary condition(s) Surgery or Intervention that may impact Pulmonary system (at risk) Surgery or Intervention that is impacting Pulmonary system Active Exacerbation of Pulmonary Condition 0 Respiratory Pattern Regular, RR= 12-18 TORRES or Increased RR= 19-24 Irregular, or RR= 25-30 SOB, talk in short sentences, or RR= 31-35 Severe SOB, accessory muscle use, one word answers, or RR>35 0 Aerosol Med(s), High Flow O2 Breath Sounds Clear Diminished in 1 lobe Diminished in <= 2 lobes Adventitious breath sounds Coarse crackles, Wheezes, or Diminished in >2 lobes 0 Aerosol Med(s), Bronchial Hygiene, Hyperinflation Cough & Sputum Strong cough, no secretion retention or production Weak cough, no secretion retention or production Weak cough, w/ production (less often than Q2hr), or secretion retention No cough, w/ secretion retention or production (less often than Q2hr) Significant secretion production (more often than Q2hr) or mucus plug 0 Aerosol Med(s), Bronchial Hygiene, Hyperinflation Level of Activity Ambulatory Ambulatory with Assist Up in chair or edge of bed (dangle) Non-ambulatory, bedridden with active ROM Completely paralyzed or without active ROM 0 Triage 5 0-2 Triage 4 3-5 Triage 3 6-10 Triage 2 11-14 Triage 1 >=15 Total 0 Triage Score = 5 TRIAGE SCORING - SUGGESTED FREQUENCIES Aerosol Therapy Bronchial Hygiene Hyperinflation Triage Score Q4h & PRN 1 Q4hWA (QID) & PRN 2 TID & PRN 3 BID & PRN 4 PRN 5 Therapy(s) Indicated Yes/No Aerosol Medication no Hyperinflation no Bronchial Hygiene no High Flow Oxygen no Based on this RAP evaluation the following therapy is being initiated: duo At the following frequency: prn Comments: Thank you for involving [facility] in the care of this patient, * Tiffany Zaragoza, DO - 07/08/2024 10:53 AM EST PULMONOLOGY CONSULT PROGRESS NOTE 07/08/2024 Hospital LOS: LOS: 2 days Reason for consult: Pulmonary emboli Interval History/Event Changes: Patient reported episode overnight where the nurse told him he had fever, tachycardia, difficulty breathing, episode of vomiting, and required NIV. Patient does not recall what happened, was transitioned back to 6L NC O2 this morning. Currently denying any dyspnea, cough, lightheadedness, chest pain, chest pressure, palpitations. Allergies Allergies Allergen Reactions Bactrim [Sulfamethoxazole-Trimethoprim] Hives Hydrocodone-Acetaminophen Nausea And Vomiting Lisinopril Cough Tramadol Rash and Dizziness Review of Systems A pertinent review of systems was performed and was otherwise non-contributory. Vitals- BP 125/76 Pulse 77 Temp 36.8 C (98.2 F) (Oral) Resp 20 Ht 5' 7 (1.702 m) Wt 234 lb (106 kg) SpO2 100% BMI 36.65 kg/m Tmax: Temp (24hrs), Av.4 C (99.3 F), Min:36.3 C (97.3 F), Max:39.1 C (102.3 F) Hemodynamics: Cuff: Systolic (24hrs), Av , Min:84 , Max:170 /Diastolic (24hrs), Av, Min:54, Max:103 Cuff MAP:MAP (mmHg) Av.9 Min: 64 Max: 116 P: Pulse Av.8 Min: 67 Max: 126 Observed RR: Resp Av.2 Min: 15 Max: 36 Observed O2 sats: SpO2 Av.9 % Min: 92 % Max: 100 % Intake/Output Summary (Last 24 hours) at 07/08/2024 1053 Last data filed at 07/08/2024 0500 Gross per 24 hour Intake 2392.66 ml Output 650 ml Net 1742.66 ml Physical exam- Physical Exam Vitals reviewed. Constitutional: General: He is not in acute distress. Appearance: Normal appearance. HENT: Head: Normocephalic and atraumatic. Nose: Comments: NC in place Mouth/Throat: Mouth: Mucous membranes are moist. Eyes: General: No scleral icterus. Extraocular Movements: Extraocular movements intact. Cardiovascular: Rate and Rhythm: Normal rate and regular rhythm. Pulmonary: Effort: Pulmonary effort is normal. No respiratory distress. Breath sounds: Normal breath sounds. No wheezing or rales. Abdominal: General: There is distension. Tenderness: There is no abdominal tenderness. There is no guarding. Musculoskeletal: General: No swelling or tenderness. Skin: General: Skin is warm and dry. Neurological: Mental Status: He is alert and oriented to person, place, and time. Psychiatric: Mood and Affect: Mood normal. Routine labs: Recent Labs 07/06/24 2301 07/07/24 1823 07/07/24 1838 07/08/24 0639 WBC 24.3* -- 10.0 9.0 HGB 11.9* 12.7 10.4* 10.7* HCT 35.2* -- 30.8* 32.8* PLT 239 -- 136* 156 Recent Labs 07/06/24 2253 07/07/24 1838 07/08/24 0639 NA 132* 131* 132* K 4.9 3.4* 4.0 CL 106 106 104 CO2 17* 15* 18* BUN 21* 19 19 CREATININE 0.89 0.78 0.79 No results for input(s): GLU in the last 72 hours. Other Laboratory - Imaging Studies: Reviewed and as per electronic record. CxR/CT images personally reviewed by me when available; salient findings summarized in A/P. ASSESSMENT AND PLAN: Segmental bilateral pulmonary emboli SDH Recent admission for SAH, multiple right rib fractures and right clavicular fracture Hypoxemic respiratory failure Chest CTA 07/06/2024 from [facility], report in chart, positive for segmental PE in the bilateral lower lobes, right upper lobe, and lingula. Please request images to review. Episode of fever to 102.3 last night with tachycardia, tachypnea, hypotension, and encephalopathy. Hemodynamically stable this morning. Troponins downtrending. TTE with RV dilation, RVSP 59. Lower extremity Dopplers negative for DVTs. Discussed that VTE appears to be provoked in setting of recent trauma. Up-to-date with routine cancer screenings. Currently therapeutic on heparin drip. Evaluated by NCC, SDH stable. Discussed imaging findings with patient and recommend for 3 months of oral anticoagulation while benefits outweigh risk. 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 Discussed risks of trauma and bleeding from future injuries including requiring hospitalization, transfusions, and . When transition to OAC, favor Coumadin for ease of reversibility if needed. Constipated, start bowel regimen to avoid straining. 3L positive this admission though I/Os may not be accurate. Monitor daily weights. Would d/c IVF give RV overload on TTE Leukocytosis on admission which has resolved. Noted however with rising procalcitonin and fever to 102 overnight. Recommend continued infectious evaluation Titrate off O2 NC PT, OOBTC. Will arrange for follow-up with PE clinic outpatient upon discharge Tiffany Zaragoza DO Pulmonary and Critical Care Portions of the information within this encounter were entered using an electronic dictation system. Best attempts were made to edit/proofread the information prior to note completion. Despite the review of information, some errors may remain. If there are questions related to the information contained within the note please contact the signing physician directly. * Maximus Covarrubias MD - 07/08/2024 8:31 AM EST NEUROCRITICAL CARE PROGRESS NOTE Patient Name: Avery Vasquez Patient : 1950 Acct: [id number] Date of Admission: 07/06/2024 Room[facility]: [facility] PCP: Aidan Argueta MD Chief Complaint: PE with ICH Interval Events: - CT head stable - Neuro exam stable Current Hospital Medications: Current Facility-Administered Medications: acetaminophen (Ofirmev) IVPB 1,000 mg, 1,000 mg, IntraVENous, q8h, Lavern Estrada MD, Stopped at 07/08/24 0655 dextrose 5 % infusion, 100 mL/hr, IntraVENous, PRN, Poncho Cortez MD dextrose 50 % solution 12.5 g, 12.5 g, IntraVENous, PRN, Poncho Cortez MD glucagon (human recombinant) injection 1 mg, 1 mg, IntraMUSCular, PRN, Poncho Cortez MD glucose oral gel 15 g, 15 g, Oral, PRN, Poncho Cortez MD heparin 25,000 units in dextrose 5% 250mL infusion (premix), 5-30 Units/kg/hr, IntraVENous, Continuous, Poncho Cortez MD, Last Rate: 18 mL/hr at 07/08/24 0135, 17 Units/kg/hr at 07/08/24 0135 hydrALAZINE (Apresoline) injection 10 mg, 10 mg, IntraVENous, q4h PRN, Lavern Estrada MD HYDROmorphone (Dilaudid) injection 0.25 mg, 0.25 mg, IntraVENous, q3h PRN OR HYDROmorphone (Dilaudid) injection 0.5 mg, 0.5 mg, IntraVENous, q3h PRN, Poncho Cortez MD Insulin Lispro (Humalog) injection 0-12 Units, 0-12 Units, SubCUTAneous, TID WC, 2 Units at 07/07/24 1712 AND Insulin Lispro (Humalog) injection 0-12 Units, 0-12 Units, SubCUTAneous, Nightly, Poncho Cortez MD, 4 Units at 07/07/242038 ipratropium-albuterol (Duo-Neb) 0.5-2.5 mg/3 mL nebulizer solution 3 mL, 3 mL, Nebulization, 4x daily, Lavern Estrada MD labetalol (Normodyne,Trandate) injection 10 mg, 10 mg, IntraVENous, q4h PRN, Lavern Estrada MD, 10mg at 07/07/24 2040 mupirocin (Bactroban) 2 % ointment 1 Application, 1 Application, Nasal, BID, Poncho Cortez MD, 1 Application at 07/07/24 0817 naloxone (Narcan) injection 0.4 mg, 0.4 mg, IntraVENous, q5 min PRN, Diana Stovall MD ondansetron ODT (Zofran-ODT) disintegrating tablet 4 mg, 4 mg, Oral, q8h PRN OR ondansetron (Zofran) injection 4 mg, 4 mg, IntraVENous, q6h PRN, Poncho Cortez MD, 4 mg at 07/07/24 1835 oxyCODONE (Roxicodone) immediate release tablet 5 mg, 5 mg, Oral, q4h PRN, 5 mg at 07/07/24 1257 OR oxyCODONE (Roxicodone) immediate release tablet 10 mg, 10 mg, Oral, q4h PRN, Poncho Cortez MD polyethylene glycol (PEG) 3350 (Miralax) packet 17 g, 17 g, Oral, Daily PRN, Poncho Cortez MD sodium chloride 0.9 % infusion, 5-250 mL/hr, IntraVENous, PRN, Poncho Cortez MD sodium chloride 0.9 % infusion, 50 mL/hr, IntraVENous, Continuous, Diana Stovall MD, Last Rate: 50mL/hr at 07/08/24 0246, 50 mL/hr at 07/08/24 0246 Continuous Infusions: heparin, 5-30 Units/kg/hr, Last Rate: 17 Units/kg/hr (07/08/24 0135) sodium chloride, 50 mL/hr, Last Rate: 50 mL/hr (07/08/24 0246) Vitals: Patient Vitals for the past 8 hrs: BP Pulse Resp SpO2 07/08/24 0500 125/76 81 17 100 % 07/08/24 0405 -- 67 -- 100 % 07/08/24 0400 107/69 69 17 100 % 07/08/24 0300 114/79 74 18 100 % 07/08/24 0200 108/69 80 19 100 % I/O last 3 completed shifts: In: 4211 (39.7 mL/kg) [P.O.:1100; I.V.:3111 (29.3 mL/kg)] Out: 1350 (12.7 mL/kg) [Urine:1350 (0.4 mL/kg/hr)] Weight: 106.1 kg Physical Examination: General: Well appearing and well developed. HEENT: Normocephalic and atraumatic. Cardiac: Regular rate and rhythm Pulm: Tachypnea GI/: Nondistended, nontender. Ext: No edema. Skin: No rashes or lesions. Neuro: Aox4. Expressive and receptive language intact. PERRL. EOMI. Midline gaze. VFI. Face symmetric. V1-V3 sensation intact. Palate rise symmetrical. Shoulder shrug intact. Tongue midline. LUE 5/5 LLE 5/5 RUE 5/5 RLE 5/5 Sensation intact to light touch and pinprick No ataxia or dysmetria. No extinction or neglect. Gait deferred in acute setting. Results: Recent Results (from the past 24 hours) POCT glucose meter Collection Time: 07/07/24 11:47 AM Result Value Ref Range Glucose 144 (H) 70 - 100 mg/dL Transthoracic echocardiogram (TTE) complete with contrast, bubble, strain, and 3D PRN Collection Time: 07/07/24 12:05 PM Result Value Ref Range IVSd 1.2 (A) 0.6 - 1.0 cm LVIDd 5.1 4.2 - 5.9 cm LVIDs 3.5 cm LVOT Diameter 2.5 cm LVPWd 0.9 0.6 - 1.0 cm EF BP 63 55 - 100 % LV Ejection Fraction A2C 63 % LV Ejection Fraction A4C 63 % LV EDV A2C 144 mL LV EDV A4C 158 mL LV EDV BP 151 67 - 155 mL LV ESV A2C 53 mL LV ESV A4C 58 mL LV ESV BP 56 22 - 58 mL LVOT Cardiac Output 8.7 liter/minute LVOT Peak Gradient 6 mmHg LVOT Mean Gradient 3 mmHg LVOT SV 103.5 ml LVOT Peak Velocity 1.2 m/s LVOT VTI 21.1 cm RV Longitudinal Dimension 7.2 cm RV Mid Dimension 3.0 cm RV Basal Dimension 4.5 cm RV Free Wall Peak S' 19 cm/s LA Diameter 4.1 cm LA Volume A/L 55 mL LA Volume 2C 51 18 - 58 mL LA Volume 4C 48 18 - 58 mL LA Volume BP 51 18 - 58 mL AV Area by Peak Velocity 3.7 cm2 AV Area by VTI 3.7 cm2 AV Peak Gradient 11 mmHg AV Mean Gradient 6 mmHg AV Peak Velocity 1.6 m/s AV Mean Velocity 1.2 m/s AV VTI 27.5 cm MV A Velocity 0.75 m/s MV E Wave Deceleration Time 229.3 ms MV E Velocity 0.87 m/s LV E' Lateral Velocity 11 cm/s LV E' Septal Velocity 9 cm/s Pulmonary Artery EDP 5 mmHg TAPSE 2.4 >=1.7 cm TR Peak Gradient 56 mmHg TR Max Velocity 3.73 m/s Ascending Aorta 3.3 cm IVC Diameter 1.5 cm Aortic Root 3.5 cm Fractional Shortening 2D 31 28 - 44 % LV ESV Index BP 26 mL/m2 LV EDV Index BP 70 mL/m2 LV ESV Index A4C 27 mL/m2 LV EDV Index A4C 73 mL/m2 LV ESV Index A2C 25 mL/m2 LV EDV Index A2C 67 mL/m2 LVIDd Index 2.36 cm/m2 LVIDs Index 1.62 cm/m2 LV RWT Ratio 0.35 LV Mass 2D 200.8 88 - 224 g LV Mass 2D Index 93.0 49 - 115 g/m2 MV E/A 1.16 E/E' Ratio (Averaged) 8.79 E/E' Lateral 7.91 E/E' Septal 9.67 LA Volume Index BP 24 16 - 34 ml/m2 LA Volume Index A/L 25 16 - 34 mL/m2 LVOT Stroke Volume Index 47.9 mL/m2 LVOT Area 4.9 cm2 LA Volume Index 2C 24 16 - 34 mL/m2 LA Volume Index 4C 22 16 - 34 mL/m2 LA Size Index 1.90 cm/m2 LA/AO Root Ratio 1.17 Ao Root Index 1.62 cm/m2 Ascending Aorta Index 1.53 cm/m2 AV Velocity Ratio 0.75 LVOT:AV VTI Index 0.77 KEE/BSA VTI 1.7 cm2/m2 KEE/BSA Peak Velocity 1.7 cm2/m2 Est. RA Pressure 3 mmHg RVSP 59 mmHg APTT Collection Time: 07/07/24 1:19 PM Result Value Ref Range APTT 57.5 (H) 20.0 - 30.5 s POCT glucose meter Collection Time: 07/07/24 5:09 PM Result Value Ref Range Glucose 154 (H) 70 - 100 mg/dL Blood Gas, Arterial Collection Time: 07/07/24 6:23 PM Result Value Ref Range pH, Arterial 7.470 (H) 7.350 - 7.450 pCO2, Arterial 24.5 (L) >35.0 - <45.0 mm Hg pO2, Arterial 79.3 (L) 80.0 - 100.0 mm Hg HCO3, Arterial 17.4 (L) 21.0 - 25.0 mmol/L O2 Sat, Arterial 95.7 95.0 - 100.0 % Base Excess, Arterial -4.6 (L) -3.0 - 3.0 mmol/L CO2 Total 18.2 (L) 23.0 - 27.0 mmol/L Hgb, blood gas 12.7 Screen only g/dl Source Of Oxygen Nasal cannula APTT Collection Time: 07/07/24 6:38 PM Result Value Ref Range APTT 58.4 (H) 20.0 - 30.5 s Troponin, with Serial Reflex Collection Time: 07/07/24 6:38 PM Result Value Ref Range TROPONIN I 0.120 (H) <0.034 ng/mL Lactic acid with reflex Collection Time: 07/07/24 6:38 PM Result Value Ref Range LACTIC ACID 2.5 (H) 0.7 - 2.0 mmol/L CBC Collection Time: 07/07/24 6:38 PM Result Value Ref Range Auto WBC 10.0 3.6 - 10.7 10*3/uL RBC 3.50 (L) 4.40 - 5.90 10*6/uL Hemoglobin 10.4 (L) 13.0 - 18.0 g/dL Hematocrit 30.8 (L) 40.0 - 52.0 % MCV 88.0 77.0 - 99.0 fL MCH 29.7 26.0 - 34.0 pg MCHC 33.8 30.5 - 36.0 % RDW 14.2 11.5 - 15.0 % Platelets 136 (L) 140 - 440 10*3/uL MPV 9.3 9.0 - 12.7 fL Comprehensive metabolic panel Collection Time: 07/07/24 6:38 PM Result Value Ref Range SODIUM 131 (L) 135 - 145 mmol/L POTASSIUM 3.4 (L) 3.5 - 5.1 mmol/L CHLORIDE 106 98 - 107 mmol/L CARBON DIOXIDE 15 (L) 22 - 30 mmol/L ANION GAP 10 3 - 13 mmol/L UREA NITROGEN 19 9 - 20 mg/dL CREATININE 0.78 0.66 - 1.25 mg/dL GLUCOSE 162 (H) 70 - 100 mg/dL CALCIUM 8.1 (L) 8.4 - 10.4 mg/dL AST (SGOT) 35 15 - 46 U/L ALT 45 0 - 49 U/L ALKALINE PHOSPHATASE 75 38 - 126 U/L ALBUMIN 3.2 (L) 3.5 - 5.0 g/dL BILIRUBIN, TOTAL 0.6 0.2 - 1.3 mg/dL TOTAL PROTEIN 6.1 (L) 6.3 - 8.2 g/dL eGFR >90.0 >60.0 mL/min/1.73m*2 ECG 12 lead Collection Time: 07/07/24 6:41 PM Result Value Ref Range Heart Rate 116 bpm QRSD Interval 114 ms QT Interval 319 ms QTC Interval 442 ms P [place] 47 degrees QRS [place] -38 degrees T Wave [place] 29 degrees IA Interval 164 ms POCT glucose meter Collection Time: 07/07/24 8:32 PM Result Value Ref Range Glucose 244 (H) 70 - 100 mg/dL Lactic acid with reflex Collection Time: 07/07/24 9:38 PM Result Value Ref Range LACTIC ACID 1.2 0.7 - 2.0 mmol/L Troponin I Collection Time: 07/07/24 9:38 PM Result Value Ref Range TROPONIN I 0.568 (HH) <0.034 ng/mL ECG 12 lead Collection Time: 07/07/24 10:50 PM Result Value Ref Range Heart Rate 87 bpm QRSD Interval 114 ms QT Interval 377 ms QTC Interval 455 ms P [place] 0 degrees QRS [place] 17 degrees T Wave [place] 42 degrees IA Interval 0 ms APTT Collection Time: 07/08/24 12:29 AM Result Value Ref Range APTT 60.8 (H) 20.0 - 30.5 s Troponin I Collection Time: 07/08/24 12:29 AM Result Value Ref Range TROPONIN I 0.663 (HH) <0.034 ng/mL ECG 12 lead Collection Time: 07/08/24 5:46 AM Result Value Ref Range Heart Rate 76 bpm QRSD Interval 117 ms QT Interval 398 ms QTC Interval 446 ms P [place] 35 degrees QRS [place] 10 degrees T Wave [place] 45 degrees IA Interval 189 ms CBC Collection Time: 07/08/24 6:39 AM Result Value Ref Range Auto WBC 9.0 3.6 - 10.7 10*3/uL RBC 3.64 (L) 4.40 - 5.90 10*6/uL Hemoglobin 10.7 (L) 13.0 - 18.0 g/dL Hematocrit 32.8 (L) 40.0 - 52.0 % MCV 90.1 77.0 - 99.0 fL MCH 29.4 26.0 - 34.0 pg MCHC 32.6 30.5 - 36.0 % RDW 14.4 11.5 - 15.0 % Platelets 156 140 - 440 10*3/uL MPV 9.5 9.0 - 12.7 fL Basic metabolic panel Collection Time: 07/08/24 6:39 AM Result Value Ref Range SODIUM 132 (L) 135 - 145 mmol/L POTASSIUM 4.0 3.5 - 5.1 mmol/L CHLORIDE 104 98 - 107 mmol/L CARBON DIOXIDE 18 (L) 22 - 30 mmol/L UREA NITROGEN 19 9 - 20 mg/dL CREATININE 0.79 0.66 - 1.25 mg/dL GLUCOSE 145 (H) 70 - 100 mg/dL CALCIUM 9.0 8.4 - 10.4 mg/dL ANION GAP 10 3 - 13 mmol/L eGFR >90.0 >60.0 mL/min/1.73m*2 Troponin, with Serial Reflex Collection Time: 07/08/24 6:39 AM Result Value Ref Range TROPONIN I 0.249 (HH) <0.034 ng/mL APTT Collection Time: 07/08/24 7:00 AM Result Value Ref Range APTT 52.1 (H) 20.0 - 30.5 s Since admission: Recent Labs 07/07/24 2138 07/08/24 0029 07/08/24 0639 TROPONINI 0.568* 0.663* 0.249* Recent Labs 07/07/24 1838 ALKPHOS 75 ALT 45 AST 35 BILITOT 0.6 @BRIEFLAB(TSHHS) ABGs:)No results for input(s): PH, PO2, PCO2, HCO3, O2SAT in the last 72 hours. No lab exists for component: BE Cultures: Blood culture #1: No lab exists for component: BC Blood culture #2: No lab exists for component: BLOODCULT2 Antiepileptic levels: No results for input(s): PHENYTOIN, PHENOBARB, VALPROATE in the last 72 hours. No lab exists for component: CARBTOT, LAMOTRIG, KEPPRA Coagulation: No results for input(s): INR in the last 72 hours. CSF: No results for input(s): CULTURE, PROTEIN in the last 72 hours. No lab exists for component: CHARCSF, CELL COUNT, GRAM STAIN Lipids: No results for input(s): CHOL, TRIG, HDL, AMYLASE, LIPASE in the last 72 hours. No lab exists for component: LDLCHOLESTEROL HgA1c: No lab exists for component: LABA1C Radiology: CT Head 07/08/2024 1. Since last exam 22.5 hours ago no definite interval change is seen --- no areas of new intracranial hemorrhage are seen with stable left-sided hygroma, tiny right parietal subdural hematoma unchanged Assessment and Plan: Avery Vasquez is a 74 yo M who was recently admitted after a TBI who presents against to the hospital after a near syncopal event found to have bilateral segmental PEs. The patient is neurologically intact. NCC was consulted along with NSG for risk stratification of AC in the setting of intracranial findings. # SDH # PE # TBI - CT head stable. Continue PE treatment with heparin gtt - NCC to sign off. Please call with any further questions or concerns. Maximus Covarrubias MD Neurocritical Care I spent a total of 30 minutes in my independent critical care time for this neurocritically ill patient who is at high risk for both clinical and neurological decline due to further brain injury, which can occur unpredictably and rapidly cause multi-organ dysfunction. In that time I reviewed the chart including MAR, labs, neuroimaging, other imaging studies and discussed my diagnostic impression and patient's plan of care with my DENNIS/resident/fellow/student, the consulting team and patient's family members/surrogate decision makers (in cases where the patient is incapacitated and unable to participate in their own care). * Shalom Rosen DO - 07/08/2024 6:20 AM EST Images from the original note were not included. Daily Trauma Progress Note Resident 07/08/2024 9:24 AM Admit Date: 07/06/2024 Post Trauma Day 07/06/2024 Other Pulmonary embolism HPI: 74 y/o male with a PMHx of DM, HTN, HLD, who presented on 07/06 for syncopal event, recently admitted for being struck by a cow. Traumatic TBI, was initially sent home after management of SAH. Had syncopal event at home and was found to have bilateral segmental PEs. INJURIES: -Bilateral segmental PEs -Previous traumatic R SAH sylvian fissure, focal hemorrhagic contusion superior aspect of the rightparietal lobe and previous aspect of the posterior right parietal lobe. Nearly removed with 3mm focal SDH of posterior parietal lobe -Right occipital scalp hematoma -Acute R clavicle fracture -Scalp laceration s/p suture removal CHIEF COMPLAINT: Syncope PREVIOUS 24 HOUR EVENTS: Overnight, episodes of tachypnea and tachycardia with brief decrease in mentation, required NIV. Transient fever noted, resolved with Tylenol. One episode of vomiting. This morning, patient reports having a headache (improves with tylenol), cough, and right upper chest wallpain. Of note, [facility] reached out to [facility] ICU yesterday to report positive blood cultures, currently preliminary with gram positive and gram negative cocci. They will fax the results of the cultures and imaging when able. Blood cultures drawn here, will wait to treat as patient stable and without leukocytosis. Troponins downtrending again this AM, EKG without evidence of acute ischemia. Consults: IP CONSULT TO PULMONOLOGY IP CONSULT TO NEUROLOGY IP CONSULT TO NEUROSURGERY IP CONSULT TO ORTHOPAEDIC SURGERY MEDICATIONS: Current Facility-Administered Medications: acetaminophen (Ofirmev) IVPB 1,000 mg, 1,000 mg, IntraVENous, q8h, Lavern Estrada MD, Stopped at 07/08/24 0655 dextrose 5 % infusion, 100 mL/hr, IntraVENous, PRN, Poncho Cortez MD dextrose 50 % solution 12.5 g, 12.5 g, IntraVENous, PRN, Poncho Cortez MD glucagon (human recombinant) injection 1 mg, 1 mg, IntraMUSCular, PRN, Poncho Cortez MD glucose oral gel 15 g, 15 g, Oral, PRN, Poncho Cortez MD heparin 25,000 units in dextrose 5% 250mL infusion (premix), 5-30 Units/kg/hr, IntraVENous, Continuous, Poncho Cortez MD, Last Rate: 18 mL/hr at 07/08/24 013, 17 Units/kg/hr at 07/08/24 013 hydrALAZINE (Apresoline) injection 10 mg, 10 mg, IntraVENous, q4h PRN, Lavern Estrada MD HYDROmorphone (Dilaudid) injection 0.25 mg, 0.25 mg, IntraVENous, q3h PRN OR HYDROmorphone (Dilaudid) injection 0.5 mg, 0.5 mg, IntraVENous, q3h PRN, Poncho Cortez MD Insulin Lispro (Humalog) injection 0-12 Units, 0-12 Units, SubCUTAneous, TID WC, 4 Units at 07/08/2418 AND Insulin Lispro (Humalog) injection 0-12 Units, 0-12 Units, SubCUTAneous, Nightly, Poncho Cortez MD, 4 Units at 07/07/242038 ipratropium-albuterol (Duo-Neb) 0.5-2.5 mg/3 mL nebulizer solution 3 mL, 3 mL, Nebulization, 4x daily, Lavern Estrada MD, 3 mL at 07/08/24 08 labetalol (Normodyne,Trandate) injection 10 mg, 10 mg, IntraVENous, q4h PRN, Lavern Estrada MD, 10mg at 07/07/242039 mupirocin (Bactroban) 2 % ointment 1 Application, 1 Application, Nasal, BID, Poncho Cortez MD, 1 Application at 07/08/24917 naloxone (Narcan) injection 0.4 mg, 0.4 mg, IntraVENous, q5 min PRN, Diana Stovall MD ondansetron ODT (Zofran-ODT) disintegrating tablet 4 mg, 4 mg, Oral, q8h PRN OR ondansetron (Zofran) injection 4 mg, 4 mg, IntraVENous, q6h PRN, Poncho Cortez MD, 4 mg at 07/07/24 1835 oxyCODONE (Roxicodone) immediate release tablet 5 mg, 5 mg, Oral, q4h PRN, 5 mg at 07/07/24 1257 OR oxyCODONE (Roxicodone) immediate release tablet 10 mg, 10 mg, Oral, q4h PRN, Poncho Cortez MD polyethylene glycol (PEG) 3350 (Miralax) packet 17 g, 17 g, Oral, Daily PRN, Poncho Cortez MD sodium chloride 0.9 % infusion, 5-250 mL/hr, IntraVENous, PRN, Poncho Cortez MD sodium chloride 0.9 % infusion, 50 mL/hr, IntraVENous, Continuous, Diana Stovall MD, Last Rate: 50mL/hr at 07/08/24245, 50 mL/hr at 07/08/24245 ARE THERE PERTINENT UPDATES TO PAST,FAMILY, OR SOCIAL HISTORY?: No Subjective: Review of Systems Constitutional: Negative for chills and fever. Respiratory: Positive for cough. Negative for shortness of breath. Gastrointestinal: Negative for abdominal pain and constipation. Musculoskeletal: Chest pain on the right, mild shoulder pain Neurological: Positive for headaches. Objective: Patient Vitals for the past 24 hrs: BP Temp Temp src Pulse Resp SpO2 Height Weight 07/08/24 0835 -- -- -- 77 20 100 % -- -- 07/08/24 0500 125/76 -- -- 81 17 100 % -- -- 07/08/24 0405 -- -- -- 67 -- 100 % -- -- 07/08/24 0400 107/69 -- -- 69 17 100 % -- -- 07/08/24 0300 114/79 -- -- 74 18 100 % -- -- 07/08/24 0200 108/69 -- -- 80 19 100 % -- -- 07/08/24 0030 102/72 36.8 C (98.2 F) Oral 81 20 100 % -- -- 07/08/24 0000 (!) 84/61 -- -- 73 18 100 % -- -- 07/07/24 2358 -- -- -- 73 -- 100 % -- -- 07/07/24 2320 103/68 -- -- 88 21 100 % -- -- 07/07/24 2315 (!) 84/54 -- -- 77 18 100 % -- -- 07/07/24 2300 96/57 37.3 C (99.1 F) Axillary 79 18 100 % -- -- 07/07/24 2200 141/80 -- -- 99 22 99 % -- -- 07/07/24 2100 136/81 (!) 38.6 C (101.4 F) Oral 101 (!) 33 99 % -- -- 07/07/242029 -- (!) 39.1 C (102.3 F) Axillary 117 (!) 29 98 % -- -- 07/07/241999 (!) 170/96 -- -- (!) 123 22 100 % -- -- 07/07/241957 -- -- -- (!) 121 -- 99 % -- -- 07/07/24 1909 -- -- -- (!) 123 -- 100 % -- -- 07/07/24 1900 153/83 -- -- (!) 126 (!) 29 99 % -- -- 07/07/24 1839 (!) 154/103 -- -- 116 (!) 27 97 % -- -- 07/07/24 1835 -- -- -- -- (!) 36 -- -- -- 07/07/24 1800 (!) 146/102 36.9 C (98.4 F) Temporal (!) 125 (!) 30 99 % -- -- 07/07/24 1700 134/82 -- -- 102 (!) 28 93 % -- -- 07/07/24 1626 -- -- -- -- 20 -- -- -- 07/07/24 1605 144/90 36.8 C (98.2 F) Temporal 91 22 93 % -- -- 07/07/24 1513 113/92 -- -- 92 (!) 28 97 % -- -- 07/07/24 1400 130/90 -- -- 97 15 96 % -- -- 07/07/24 1300 107/93 -- -- 99 19 94 % -- -- 07/07/24 1205 -- 36.3 C (97.3 F) Temporal -- -- -- 1.702 m (5' 7) 106 kg (234 lb) 07/07/24 1200 131/87 -- -- 90 (!) 31 99 % -- -- 07/07/24 1128 -- -- -- -- -- -- 1.702 m (5' 7) -- 07/07/24 1100 114/76 -- -- 86 (!) 26 100 % -- -- 07/07/24 1000 108/64 -- -- 85 13 92 % -- -- Intake/Output Summary (Last 24 hours) at 07/08/2024 0924 Last data filed at 07/08/2024 0500 Gross per 24 hour Intake 2792.66 ml Output 900 ml Net 1892.66 ml No intake/output data recorded. Diet: Dietary Orders (From admission, onward) Start Ordered 07/08/24 09 Adult diet Regular Diet effective now Question: Diet type Answer: Regular 07/08/24 0911 CVP: No Chest Tubes: No PHYSICAL: Physical Exam Vitals and nursing note reviewed. Constitutional: Appearance: Normal appearance. HENT: Head: Normocephalic and atraumatic. Nose: Nose normal. Mouth/Throat: Pharynx: Oropharynx is clear. Cardiovascular: Rate and Rhythm: Normal rate and regular rhythm. Pulses: Normal pulses. Heart sounds: Normal heart sounds. Pulmonary: Effort: Pulmonary effort is normal. No respiratory distress. Breath sounds: Normal breath sounds. No wheezing, rhonchi or rales. Comments: NIV in place Abdominal: Palpations: Abdomen is soft. Tenderness: There is no abdominal tenderness. There is no guarding. Musculoskeletal: Comments: Bruising and deformity to right upper chest wall. Left lower extremity with bruising on the thigh and old, well-healed scar Skin: General: Skin is warm and dry. Capillary Refill: Capillary refill takes less than 2 seconds. Neurological: General: No focal deficit present. Mental Status: He is alert and oriented to person, place, and time. Psychiatric: Mood and Affect: Mood normal. Behavior: Behavior normal. Cognition and Memory: He exhibits impaired recent memory (Does not recall episode of vomiting yesterday). Sutures or edgar? No O2: / / /FiO2 (%): 70 % Data Review Data CBC with Differential: Lab Results Component Value Date WBC 9.0 07/08/2024 RBC 3.64 (L) 07/08/2024 HGB 10.7 (L) 07/08/2024 HGB 12.7 07/07/2024 HCT 32.8 (L) 07/08/2024 PLT 156 07/08/2024 CMP: Lab Results Component Value Date NA 132 (L) 07/08/2024 K 4.0 07/08/2024 CL 104 07/08/2024 CO2 18 (L) 07/08/2024 BUN 19 07/08/2024 CREATININE 0.79 07/08/2024 GLUCOSE 145 (H) 07/08/2024 PROT 6.1 (L) 07/07/2024 CALCIUM 9.0 07/08/2024 BILITOT 0.6 07/07/2024 ALKPHOS 75 07/07/2024 AST 35 07/07/2024 ALT 45 07/07/2024 BMP: Hepatic Function Panel:Ionized Calcium: No components found for: IONCA Magnesium: No results found for: MG Phosphorus: No results found for: PHOS PT/INR: No results found for: PROTIME, INR PTT: Lab Results Component Value Date APTT 52.1 (H) 07/08/2024 [APTT Last 3 Troponin: Lab Results Component Value Date TROPONINI 0.249 (HH) 07/08/2024 TROPONINI 0.663 (HH) 07/08/2024 TROPONINI 0.568 (HH) 07/07/2024 Urine Culture: No components found for: CURINE Blood Culture: No components found for: CBLOOD, CFUNGUSBL Blood Culture from Central Line: No components found for: CBLOODLN Stool Culture: No components found for: CSTOOL Sputum Culture: No components found for: CSPUTUM Sputum Culture for AFB: No components found for: CAFBSM Wound Culture: N/A Radiology: POCT glucose meter Performed by: [facility], [address] [place] [address] CLIA ID: [id number] XR chest 1 view Narrative: Patient Name: AV[facility]ASQUEZ : 1950 [id number] Exam Date/Time: 07/08/2024 06:55 Procedure: XR CHEST 1 VIEW Ordering Provider: STOVALL KATIE Reason For Exam: SOB on NIV PORTABLE CHEST X-RAY CLINICAL INDICATION: SOB on NIV A portable frontal view of the chest was obtained. COMPARISON: 07/07/2024 FINDINGS: Heart size is within normal limits. There is coarsening of the interstitial lung markings which is at least partially chronic. There may be mild superimposed pulmonary vascular congestion. There are degenerative changes of the thoracic spine. There is a mildly displaced left clavicular fracture. 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 Impression: No significant change from the prior exam. Report Dictated on Electronically Signed By: Constantine Vargas MD Electronically Signed Date/Time: 07/08/2024 8:02 AM EST ECG 12 lead Sinus rhythm Nonspecific intraventricular conduction delay CT head wo IV contrast Patient Name: AVERY VASQUEZ : 1950 [id number] Exam Date/Time: 07/08/2024 04:38 Procedure: CT HEAD WO IV CONTRAST Ordering Provider: STOVALL KATIE Reason For Exam: s/p heparin drip initiation HISTORY: Status post heparin drip initiation. Noncontrast CT is performed. Dose reduction was performed with automated exposure control. Comparison study from 07/07/2024. FINDINGS: 1. Since last exam 22.5 hours ago no definite interval change is seen --- no areas of new intracranial hemorrhage are seen with stable left-sided hygroma, tiny right parietal subdural hematoma unchanged Report Dictated on Electronically Signed By: Adolfo Turner MD Electronically Signed Date/Time: 07/08/2024 4:46 AM EST Patient Active Problem List Diagnosis Intracranial bleeding (HCC) Closed fracture of multiple ribs of right side with routine healing Traumatic closed fracture of distal clavicle with minimal displacement, right, initial encounter Acute pulmonary embolism without acute cor pulmonale, unspecified pulmonary embolism type (HCC) Assessment & Plan: Neuro / Spine Traumatic injuries to head, chest, and LLE - Pain control: Acetaminophen 1g q8hrs, dilaudid q3hrs prn, oxycodone q4hrs prn - Elevate HOB 30 degrees -CT head with tiny right parietal SDH, resolution of SAH and intraparenchymal hematoma. 8mm left convexity subdural hygroma, previously 5mm -Head CT today shows no definitive changes compared to imaging yesterday. No new areas of intracranial hemorrhage, stable left-sided hygroma, tiny right parietal SDH unchanged - Neuro critical care and neurosurgery following, recs appreciated HEENT Cardiovascular - Hemodynamically stable - Troponins stable, discontinuing orders - Valsartan 160mg BID, Lipitor 10mg nightly, hydralazine 10mg q4hrs prn, labetalol 10mg q4hrs prn - Telemetry -TTE with mild/moderate right ventricular overload, EF 63% Pulmonary Bilateral segmental PEs - Standard O2 protocol - On NIV this AM, 6L NC on re-eval - Incentive spirometry - DuoNebs TID - Narcan prn -Pulmonology following, recs appreciated -OACs outpatient vs IVC filter -PE clinic outpatient - Vascular US LE's negative FEN/GI - Diet: Clear liquid diet this AM, switch to regular as tolerated - Zofran PRN - Bowel regimen: Miralax 17g daily prn - No acute issues -Tamsulosin 0.4mg nightly - Monitor I/Os - Goal UOP > 0.5 ml/kg/hr - Daily BMP Endocrine Hx of DM - Insulin lispro SS Heme - Hgb stable - No transfusions indicated - Daily CBC - APTT most recent 44.5 ID -[facility] called, informed that blood cx's positive for unknown specimen. Repeating cx's here - Procalcitonin elevated but no leukocytosis. No obvious source of infection - Transient fever overnight, improved w/ Tylenol - CXR last night with chronic changes and vascular congestion and known clavicular fracture but no evidence of PNA - UA and respiratory PCR ordered for further evaluation - Mupirocin for empiric MRSA nasal decolonization Lines/Devices: - PIV, NIV Prophylaxis: DVT: SCDs, heparin gtt Has DVT PPX been started? Yes If no, why? GI: Miralax daily prn Pressure Ulcer: Continue to monitor, q2 turns Musculoskeletal: - PT/OT - Activity up with assistance - Tenderness to right clavicle and rib cage. Bruising and tenderness to left thigh - XR left femur with chronic degenerative changes but no acute abnormality - XR right clavicle with increasing displacement of fragment of known distal right clavicular fracture - Ortho consulted, no acute surgical intervention indicated. Ice/elevate, activity as tolerated, skin checks. F/u outpatient with Dr. Stroud. Is the patient in restraints?: No Medications Reconciled- Yes [x] NO [] Disposition: WILEYU Shalom Rosen DO Emergency Medicine Resident 07/08/24 9:24 AM This note may have been dictated using [employer] Edition 2.6 and/or [employer] Voice Recognition Feature. The document was proofread; however, unrecognized voice recognition staff nurse icu resource team errors may be present. Cosigned by Diana Stovall MD at 07/08/2024 10:06 AM EST Associated attestation - Diana Stovall MD - 07/08/2024 10:06 AM EST ATTENDING ADDENDUM I independently saw the above patient and reviewed the recent events, imaging, labs, vital signs; Iperformed a physical exam and ROS. My findings agree with the above note except for any details corrected below. Patient Active Problem List Diagnosis Intracranial bleeding (HCC) Closed fracture of multiple ribs of right side with routine healing Traumatic closed fracture of distal clavicle with minimal displacement, right, initial encounter Acute pulmonary embolism without acute cor pulmonale, unspecified pulmonary embolism type (HCC) A complete review of systems was obtained and is negative except as stated in HPI. 74M s/p fall in the shower. Patient states he felt weak and slid down the shower wall. He was unable to stand up. Recently admitted after being struck by a cow with traumatic TBI. Denies head strike. PMHx: DM, HTN, dyslipidemia Problems/injuries: -Bilateral segmental PEs -Previous traumatic R SAH sylvian fissure, focal hemorrhagic contusion superior aspect of the rightparietal lobe and peripheral aspect of the posterior right parietal lobe --> nearly removed with3 mm focal SDH posterior parietal lobe -R 2nd and 3rd rib fx, subsequent encounter -Right occipital scalp hematoma -Acute R clavicle fx, subsequent encounter -Scalp laceration s/p removal of sutures Incidental: Large 2.5 cm gallstone -cholelithiasis Small left inguinal hernia containing fat Prostatic enlargement 24h: PERT team consulted - appreciate recs - pending TTE and LE duplex - neg Echo - EF 63% - mild to moderate dilated RV Acute hypoxic respiratory failure - requiring NIV overnight Febrile, tachycardic, tachypnea, encephalopathic after turning --> yesterday - placed on NIV --> wean to NC - improved overall - lactic acidosis 2.5 - now 1.2 - per randolph positive blood culture Imaging from [place] not sent - call today + Emesis Leukocytosis - resolved - suspect reactive - Febrile 102.3 - check procalc - 15.61 - trend - check UA IVF - 50cc/h Scalp wound - healing, clean and dry LE - no cellulitis Repeat CTH - stable Neurological system NSG/NCC consult - repeat CTH 07/08 - neurochecks Acute pain - Multimodal pain control - Delirium precautions Fall/weakness - likely secondary to PE/SOB/hypoxia Circulatory system # Hypertension, hyperlipidemia - hold ASA - home valsartan 160 mg twice daily - Farxiga 10 mg daily - SBP 100-160 - PRN anti-htn med Respiratory system Acute pulmonary embolism segmental PE - Appreciate PERT team recs - on heparin gtt no bolus - O2 protocol Right rib fractures - pain control - Aggressive pulmonary hygiene Gastrointestinal system - DM diet - Bowel regimen Renal function - Strict I/Os BPH - home flomax Immunologic system - Monitor for fevers Leukocytosis suspect reactive - resolved - trend - check procalc - 15 - Mupirocin for empiric MRSA decolonization x5 days Hematologic system - Monitor hemoglobin Endocrine system - Monitor glucose #DM - Hold home Trulicity, metformin, glimepiride - ISS, q4h glucose checks Integumentary system (GI and cutaneous) - Skin checks Scalp laceration - petroleum jelly Musculoskeletal system - PTOT #R clavicle fracture - NWB - sling for comfort -Orthopedic consultation -Appreciate recommendations -Follow-up outpatient Ppx - on Heparin gtt - pepcid Critical Care time spent 51 min. The time involved in the performance of this care was exclusive ofseparately billable procedures, teaching time and treating other patients. The time was spent personally by the attending physician for the following activities: examination of the patient, ordering and/or performing treatment, reviewing the laboratory and radiographic studies, and if applicable, ventilator management and blood gas interpretation. Critical Care was necessary because of an illness or injury that actively impaired one or more vital organ systems such that there was a high probability of imminent life treatening deterioration in the patient's condition. The following organ systems are involved: Neurologic, Respiratory Level of Medical Decision Making: risk of morbidity from additional diagnostic testing or treatmentdue to ARF, PE, Recent TBI [x]High []Moderate []Low Complexity: Acute or chronic illness posing a threat to life (HIGH) Risk: Drug or therapy requiring intensive monitoring (HIGH) Personally Reviewed/Independently interpreted patient's: [x]Epic notes [x]Radiology studies [x]Labs []EKG []Ordering tests []Other Discussed/ With: [x]Patient/Family [x]RN []Consultants []SW/TCC []Other Diana Stovall MD Division of Trauma Department of Surgery [facility] ~~~~~~~~~~~~~~~~~~~~~~~~~~~~~~~~~~~~~~~~~~~~~~~~~~~~~~~~~~~~~~~~~~~~~~~ This note may have been dictated using [employer] Medical Practice Edition 2.6 and/or [employer] Voice Recognition Feature. The document was proofread; however, unrecognized voice recognition staff nurse icu resource team errors may be present. * Moira Kumari RD - 07/07/2024 11:34 AM EDT Low Risk Nutrition Note Nutrition Assessment: Patient presents with near syncopal in shower around 1200 07/07/2024. Pt was recently admitted to the trauma service 06/26 after accident [place] farm in which he was assaulted by cow. At that time he had a subarachnoid hemorrhage and was discharged 06/27 in good condition. Today he presents with increasing shortness of breath, near syncopal event, imaging at outside ER was concerning for transition of his subarachnoid hemorrhage to a small 3 mm right subdural hemorrhage, as well as new segmental PEs bilaterally. Patient presents as a direct admit to the T2 SICU. NCC was consulted along with NSG for risk stratification of AC in the setting of intracranial findings. Patient currently on a Regular diet. Pt endorses a good appetite. No recent weight changes. Monitors CHO at home. RD to sign off,DT will continue to follow during admission. Nutrition Diagnosis: No nutrition diagnosis at this time Nutrition Interventions: Consult RD if nutrition intervention essential for patient care is needed Nutrition Monitoring and Evaluation: Will continue to monitor and evaluate per nutrition standards of care. Discharge Planning: None Moira Kumari RD Contact: *[phone] * Shalom Rosen DO - 07/07/2024 6:16 AM EDT Images from the original note were not included. Daily Trauma Progress Note Resident 07/07/2024 10:58 AM Admit Date: 07/06/2024 Post Trauma Day 07/06/2024 Other Pulmonary embolism HPI: 74 y/o male with a PMHx of DM, HTN, HLD, who presented on 07/06 for syncopal event, recently admitted for being struck by a cow. Traumatic TBI, was initially sent home after management of SAH. Had syncopal event at home and was found to have bilateral segmental PEs. INJURIES: -Bilateral segmental PEs -Previous traumatic R SAH sylvian fissure, focal hemorrhagic contusion superior aspect of the rightparietal lobe and previous aspect of the posterior right parietal lobe. Nearly removed with 3mm focal SDH of posterior parietal lobe -Right occipital scalp hematoma -Acute R clavicle fracture -Scalp laceration s/p suture removal CHIEF COMPLAINT: Syncope PREVIOUS 24 HOUR EVENTS: No acute events. On 2L NC, tachypneic but denies any SOB or other complaints this morning. Consults: IP CONSULT TO PULMONOLOGY IP CONSULT TO NEUROLOGY IP CONSULT TO NEUROSURGERY IP CONSULT TO ORTHOPAEDIC SURGERY MEDICATIONS: Current Facility-Administered Medications: acetaminophen (Ofirmev) IVPB 1,000 mg, 1,000 mg, IntraVENous, q8h, Poncho Cortez MD, Stopped at 07/07/24 0650 dextrose 5 % infusion, 100 mL/hr, IntraVENous, PRN, Poncho Cortez MD dextrose 50 % solution 12.5 g, 12.5 g, IntraVENous, PRN, Poncho Cortez MD glucagon (human recombinant) injection 1 mg, 1 mg, IntraMUSCular, PRN, Poncho Cortez MD glucose oral gel 15 g, 15 g, Oral, PRN, Poncho Cortez MD heparin 25,000 units in dextrose 5% 250mL infusion (premix), 5-30 Units/kg/hr, IntraVENous, Continuous, Poncho Cortez MD, Last Rate: 18 mL/hr at 07/07/24 0720, 17 Units/kg/hr at 07/07/24 0720 HYDROmorphone (Dilaudid) injection 0.25 mg, 0.25 mg, IntraVENous, q3h PRN OR HYDROmorphone (Dilaudid) injection 0.5 mg, 0.5 mg, IntraVENous, q3h PRN, Poncho Cortez MD Insulin Lispro (Humalog) injection 0-12 Units, 0-12 Units, SubCUTAneous, TID WC, 2 Units at 07/07/24 0817 AND Insulin Lispro (Humalog) injection 0-12 Units, 0-12 Units, SubCUTAneous, Nightly, Poncho Cortez MD, 2 Units at 07/07/24 0053 ipratropium-albuterol (Duo-Neb) 0.5-2.5 mg/3 mL nebulizer solution 3 mL, 3 mL, Nebulization, BID, Poncho Cortez MD, 3 mL at 07/07/24 0907 mupirocin (Bactroban) 2 % ointment 1 Application, 1 Application, Nasal, BID, Poncho Cortez MD, 1 Application at 07/07/24 0817 naloxone (Narcan) injection 0.4 mg, 0.4 mg, IntraVENous, q5 min PRN, Diana Stovall MD ondansetron ODT (Zofran-ODT) disintegrating tablet 4 mg, 4 mg, Oral, q8h PRN OR ondansetron (Zofran) injection 4 mg, 4 mg, IntraVENous, q6h PRN, Poncho Cortez MD oxyCODONE (Roxicodone) immediate release tablet 5 mg, 5 mg, Oral, q4h PRN, 5 mg at 07/07/24 0817 OR oxyCODONE (Roxicodone) immediate release tablet 10 mg, 10 mg, Oral, q4h PRN, Poncho Cortez MD perflutren protein A microsphere (Optison) 3 mL in sodium chloride (PF) 0.9 % 10 mL IV syringe, 0-10 mL, IntraVENous, Once PRN, Hussein Paredes, [employer] polyethylene glycol (PEG) 3350 (Miralax) packet 17 g, 17 g, Oral, Daily PRN, Poncho Cortez MD sodium chloride 0.9 % infusion, 5-250 mL/hr, IntraVENous, PRN, Poncho Cortez MD sodium chloride 0.9 % infusion, 100 mL/hr, IntraVENous, Continuous, Aneil Mo Cortez MD, Last Rate: 100 mL/hr at 07/06/242311, 100 mL/hr at 07/06/242311 ARE THERE PERTINENT UPDATES TO PAST,FAMILY, OR SOCIAL HISTORY?: No Subjective: Review of Systems Constitutional: Negative for chills and fever. Respiratory: Negative for cough and shortness of breath. Gastrointestinal: Negative for abdominal pain and constipation. Musculoskeletal: Chest pain on the right, mild shoulder pain Objective: Patient Vitals for the past 24 hrs: BP Temp Temp src Pulse Resp SpO2 07/07/24 1000 108/64 -- -- 85 13 92 % 07/07/24 0909 -- -- -- 92 22 95 % 07/07/24 0900 136/94 -- -- 93 (!) 27 93 % 07/07/24 0800 131/63 36.8 C (98.2 F) Temporal 92 23 94 % 07/07/24 0700 143/100 -- -- 100 (!) 33 95 % 07/07/24 0300 145/68 -- -- 98 (!) 27 100 % 07/07/24 0200 129/75 -- -- 89 22 99 % 07/07/24 0100 118/74 -- -- 87 23 98 % 07/07/24 0000 114/68 -- -- 88 22 96 % 07/06/24 2300 134/89 -- -- 99 (!) 27 98 % 07/06/24 2230 131/69 36.9 C (98.4 F) Temporal 97 25 97 % Intake/Output Summary (Last 24 hours) at 07/07/2024 1058 Last data filed at 07/07/2024 1043 Gross per 24 hour Intake 1418.36 ml Output 700 ml Net 718.36 ml I/O this shift: In: - Out: 400 [Urine:400] Diet: Dietary Orders (From admission, onward) Start Ordered 07/07/24 08 Adult diet Regular Diet effective now Question: Diet type Answer: Regular 07/07/24 08 CVP: No Chest Tubes: No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 osteopenia. Consider follow-up PA and lateral views of the left femur for persistent symptomology. 06/26 CT Chest: FINDINGS: Cardiovasculature: The heart is large. Severe three-vessel coronary calcification. Atherosclerotic calcifications within the thoracic aorta. Mediastinum/Pericardium: Small pericardial effusion. Pleura: No pneumothorax or hemothorax. Central Airways: Widely patent. Lungs: No contusion or laceration. Nodules: Diffuse subpleural micronodules in the right lower lobe of uncertain significance (series 5, images 187, 195 and 201), the largest 3.5 mm. Lymph Nodes: No thoracic lymphadenopathy is evident. Included images of the upper abdomen: Gallstones are present. There is a small amount of excreted contrast in the renal collecting systems bilaterally, presumably from the recent outside CT. Visualized musculoskeletal structures: Acute oblique fracture of the mid and distal right clavicle with mild posterosuperior displacement of the distal fracture fragment and surrounding supraclavicular hematoma. Nondisplaced acute right anterior second and third rib fractures. There is partially visualized shoulder arthroplasty hardware bilaterally. Impression: 1. Right distal clavicle fracture and nondisplaced right anterior second and third rib fractures. 2. No other acute traumatic injuries. 3. Cardiomegaly, three-vessel coronary artery calcification, and small pericardial effusion. Antimicrobials,Start/End Dates: Vancomycin Piptazo 07/09- Impression: 74 M admitted for: Presyncopal event, weakness- multifactorial also diagnosed with- GNR sepsis- unclear etiology, but had traumatic injury from 2 weeks ago, possible skin as portal ofinfection, no apparent CLABSI, ? Contusion to Chest injury? GI source with N/V B/l PE- from traumatic injuries- provoked, on Eliquis now SAH- and superficial scalp laceration- stable, healing +Troponins- demand ischemia likely Leukocytosis, improving, on empiric antibiotics already Overall clinically improving. Plan: Continue IV Zosyn for now, pending final culture results. Consider CTAP if GI symptoms recur. At least total time of 70 minutes on this day of encounter spent on, but not limited to review of tests, medical records and ordering medications, tests, and procedures. * Davi Barclay [facility] - 07/10/2024 6:10 AM EST Images from the original note were not included. Pharmacy Managed Vancomycin Dosing Service Consult Note Consult Date: 07/10/24 Patient Name: Avery Vasquez Allergies: Bactrim [sulfamethoxazole-trimethoprim], Hydrocodone-acetaminophen, Lisinopril, and Tramadol Age: 74 y.o. Sex: male Estimated body mass index is 36.65 kg/m as calculated from the following: Height as of this encounter: 1.702 m (5' 7). Weight as of this encounter: 106 kg (234 lb). DW: 106 kg Lab Results Component Value Date CREATININE 0.62 (L) 07/10/2024 CREATININE 0.78 07/09/2024 BUN 17 07/10/2024 BUN 16 07/09/2024 WBC 6.1 07/10/2024 WBC 6.0 07/09/2024 Calculated CrCl: 121 mL/min (Cockcroft-Gault) Consulted By: Elsy Diego Infectious Diagnosis: Sepsis of unknown etiology (AUC Goal 400-600 mg/L*hr) Random Vancomycin Level Due: 07/11/24 Antimicrobials: Patient recently received an antibiotic (last 12 hours) Date/Time Action Medication Dose 07/09/242214 Given mupirocin (Bactroban) 2 % ointment 1 Application 1 Application Assessment/Plan: Doses, serum creatinine, and vancomycin levels interfaced automatically to [employer] and data has been analyzed and interpreted. Start Vancomycin 1,250 mg every 12 hours based on patient age, weight, renal function, and infectious diagnosis (11.8 mg/kg). Predicted AUC = 497 mg/L*hr (goal 400-600 mg/L*hr) PAUC = 76% (probability that AUC is >400 mg/L*hr) Pconc = 16% (probability that Ctrough is above 20 mcg/mL (toxicity)) Will assess random level on 07/11/24 and adjust as appropriate. Trend serum creatinine. Orders placed. Thank you for this consult. Please secure text or call with questions. DATE: 07/10/24 TIME: 6:09 AM Davi Barclay RPh Clinical Pharmacist Available via Secure Chat * Fadumo Healy MD - 07/07/2024 2:55 PM EDTAssociated Order(s): IP CONSULT TO ORTHOPAEDIC SURGERY Images from the original note were not included. Ortho Consult Patient: Avery Vasquez Date of : 1950 Acct: [id number] PCP: Aidan Argueta MD Date of Admission: 07/06/2024 Date of Service: Pt seen/examined on 07/07/2024 Chief Complaint: R clavicle fx follow up History Of Present Illness: This is a 74 y.o. male who was scheduled for his 1 week followup visit with Dr. Stroud but unable to go given his current hospital stay. Patient states that his pain has been well-controlled. He states that he has remained in his sling since initial injury. His current hospital admission is for workup following a syncopal event in the shower. He states that during this syncopal event, he does not believe that he further injured his right shoulder/clavicle. His recent hospital admission on 06/26/24 was for being run over by cow. At that time, he broke hisright clavicle and had significant ecchymosis to his left thigh where the cow stepped on him. He states that the pain in his left thigh has continued to improve and he is able to move his knee without much issue. Past orthopedic surgical history significant for bilateral shoulder arthroplasty and bilateral kneearthroplasty. He also states that he acquired a large left thigh hematoma following his left total knee arthroplasty. The hematoma had to be evacuated surgically. He denies tobacco, alcohol, or illicit drug use. Patient ambulation status: no difficulty Antiplatelets/Anticoagulation includes: none Hx from chart and/or Pt. Past Medical History: No past medical history on file. Past Surgical History: No past surgical history on file. Home Medications: Prior to Admission medications Medication Sig Start Date End Date Taking? Authorizing Provider atorvastatin (Lipitor) 10 MG tablet Take 10 mg by mouth Nightly. Historical Provider, bacitracin 500 UNIT/GM ointment Apply topically 3 times daily. 06/27/24 Price Monae MD Calcium Carbonate-Vit D-Min (Calcium 600+D3 Plus Minerals) 600-800 MG-UNIT tablet Take 1 tablet by mouth daily. Historical ProviderMD dapagliflozin (Farxiga) 10 MG tablet Take 10 mg by mouth daily. Historical Provider, dulaglutide (Trulicity) 0.75 MG/0.5ML Inject 0.75 mg under the skin 1 (one) time per week. Historical ProviderMD glimepiride (Amaryl) 1 MG tablet Take 1 mg by mouth daily (with breakfast). Historical ProviderMD levETIRAcetam (Keppra) 500 MG tablet Take 1 tablet (500 mg) by mouth 2 times daily for 12 doses. 06/27/24 07/03/24 Price Monae MD Lidocaine 4 % patch Place 1 patch on the skin daily. Patient not taking: Reported on 07/03/2024 06/28/24 07/28/24 Price Monae MD metFORMIN (Glucophage) 500 MG tablet Take 500 mg by mouth in the morning and 500 mg in the evening.Take with meals. Historical ProviderMD Multiple Vitamins-Minerals (MULTIVITAMIN ADULT, MINERALS, PO) Take 1 tablet by mouth daily. Historical ProviderMD oxyCODONE (Roxicodone) 5 MG immediate release tablet Take 1 tablet (5 mg) by mouth in the morning and 1 tablet (5 mg) in the evening. Do all this for 3 days. 06/27/24 06/30/24 Price Monae MD tamsulosin (Flomax) 0.4 MG 24 hr capsule Take 0.4 mg by mouth Nightly. Historical ProviderMD valsartan (Diovan) 160 MG tablet Take 160 mg by mouth 2 times daily. Historical ProviderMD Current Hospital Medications: Current Facility-Administered Medications: acetaminophen (Ofirmev) IVPB 1,000 mg, 1,000 mg, IntraVENous, q8h, Poncho Cortez MD, Last Rate: 400 mL/hr at 07/07/24 1452, 1,000 mg at 07/07/24 1452 dextrose 5 % infusion, 100 mL/hr, IntraVENous, PRN, Poncho Cortez MD dextrose 50 % solution 12.5 g, 12.5 g, IntraVENous, PRN, Poncho Cortez MD glucagon (human recombinant) injection 1 mg, 1 mg, IntraMUSCular, PRN, Poncho Cortez MD glucose oral gel 15 g, 15 g, Oral, PRN, Poncho Cortez MD heparin 25,000 units in dextrose 5% 250mL infusion (premix), 5-30 Units/kg/hr, IntraVENous, Continuous, Poncho Cortez MD, Last Rate: 18 mL/hr at 07/07/24 1421, 17 Units/kg/hr at 07/07/24 1421 HYDROmorphone (Dilaudid) injection 0.25 mg, 0.25 mg, IntraVENous, q3h PRN OR HYDROmorphone (Dilaudid) injection 0.5 mg, 0.5 mg, IntraVENous, q3h PRN, Poncho Cortez MD Insulin Lispro (Humalog) injection 0-12 Units, 0-12 Units, SubCUTAneous, TID WC, 2 Units at 07/07/24 1153 AND Insulin Lispro (Humalog) injection 0-12 Units, 0-12 Units, SubCUTAneous, Nightly, Poncho Cortez MD, 2 Units at 07/07/24 0053 ipratropium-albuterol (Duo-Neb) 0.5-2.5 mg/3 mL nebulizer solution 3 mL, 3 mL, Nebulization, BID, Poncho Cortez MD, 3 mL at 07/07/24 0907 mupirocin (Bactroban) 2 % ointment 1 Application, 1 Application, Nasal, BID, Poncho Cortez MD, 1 Application at 07/07/24 0817 naloxone (Narcan) injection 0.4 mg, 0.4 mg, IntraVENous, q5 min PRN, Diana Stovall MD ondansetron ODT (Zofran-ODT) disintegrating tablet 4 mg, 4 mg, Oral, q8h PRN OR ondansetron (Zofran) injection 4 mg, 4 mg, IntraVENous, q6h PRN, Poncho Cortez MD oxyCODONE (Roxicodone) immediate release tablet 5 mg, 5 mg, Oral, q4h PRN, 5 mg at 07/07/24 1257 OR oxyCODONE (Roxicodone) immediate release tablet 10 mg, 10 mg, Oral, q4h PRN, Poncho Cortez MD polyethylene glycol (PEG) 3350 (Miralax) packet 17 g, 17 g, Oral, Daily PRN, Poncho Cortez MD sodium chloride 0.9 % infusion, 5-250 mL/hr, IntraVENous, PRN, Poncho Cortez MD sodium chloride 0.9 % infusion, 50 mL/hr, IntraVENous, Continuous, Diana Stovall MD, Last Rate: 50mL/hr at 07/07/24 1321, 50 mL/hr at 07/07/24 1321 Allergies: Bactrim [sulfamethoxazole-trimethoprim], Hydrocodone-acetaminophen, Lisinopril, and Tramadol Social History: Social History Socioeconomic History Marital status: Spouse name: Not on file Number of children: Not on file Years of education: Not on file Highest education level: Not on file Occupational History Not on file Tobacco Use Smoking status: Never Smokeless tobacco: Never Substance and Sexual Activity Alcohol use: Yes Comment: occ Drug use: Never Sexual activity: Not on file Other Topics Concern Not on file Social History Narrative Not on file Social Drivers of Health Financial Resource Strain: Not on file Food Insecurity: Not on file Transportation Needs: Not on file Physical Activity: Not on file Stress: Not on file Social Connections: Not on file Intimate Partner Violence: Not on file Housing Stability: Not on file Family History: No family history on file. Further Family History is noncontributory to this injury. REVIEW OF SYSTEMS: Review of Systems - General ROS: negative for - chills, fatigue, fever, malaise or night sweats Psychological ROS: negative Ophthalmic ROS: negative ENT ROS: negative for - headaches or sore throat Hematological and Lymphatic ROS: negative for - bleeding problems or blood clots Respiratory ROS: no cough, shortness of breath, or wheezing Cardiovascular ROS: no chest pain or dyspnea on exertion Gastrointestinal ROS: negative Musculoskeletal ROS: See HPI Neurological ROS: negative for - bowel and bladder control changes, gait disturbance or numbness/tingling All other systems reviewed and are negative PHYSICAL EXAM: BP 131/87 Pulse 90 Temp 36.3 C (97.3 F) (Temporal) Resp (!) 31 Ht 1.702 m (5' 7) Wt 106 kg (234 lb) SpO2 99% BMI 36.65 kg/m GENERAL APPEARANCE: Awake and oriented x3. No acute distress, except appropriate to injury. MOOD AND AFFECT: Calm appropriate to situation GAIT AND STATION: Patient is in bed COORDINATION and BALANCE: Patient is grossly coordinated unable to ambulate secondary to non-orthopedic restrictions Right Upper Extremity: -No obvious pain or deformity to inspection with normal joint range of motion, stability, and muscle strength except noted below -No TTP over humerus, elbow, forearm, wrist, hand, or fingers -TTP: Clavicle and Shoulder -Radial pulse palpable -SILT in radial/median/ ulnar nerve distributions -Motor + AIN/PIN/ulnar nerve functions -Skin intact except where noted below -Painless pROM at shoulder/elbow/wrist No skin tenting or compromised skin. Moderate ecchymosis surrounding the right shoulder/clavicle. No obvious deformity Left Upper Extremity: -No obvious pain or deformity to inspection with normal joint range of motion, stability, and muscle strength except noted below -No TTP over clavicle, shoulder, humerus, elbow, forearm, wrist, hand, or fingers -TTP: nontender throughout extremity -Radial pulse palpable -SILT in radial/median/ ulnar nerve distributions -Motor + AIN/PIN/ulnar nerve functions -Skin intact except where noted below -Painless pROM at shoulder/elbow/wrist Right Lower Extremity: -No obvious pain or deformity to inspection with normal joint range of motion, stability, and muscle strength except noted below -No TTP over pelvis, hip, thigh, knee, tibia, lateral mal, medial mal, calc, midfoot, forefoot -TTP: Nontender throughout extremity -Pulse: DP Palpable, PT Palpable -SILT in the superficial peroneal, deep peroneal, tibial, sural, saphenous nerve distributions -Motor function of quad, tibialis anterior, extensor hallucis longus, and gactrocsoleus complex intact -Skin intact except where noted below -Painless pROM at hip/knee/ankle Left Lower Extremity: -No obvious pain or deformity to inspection with normal joint range of motion, stability, and muscle strength except noted below -No TTP over pelvis, hip, thigh, knee, tibia, lateral mal, medial mal, calc, midfoot, forefoot -TTP: thigh -Pulse: DP Palpable, PT Palpable -SILT in the superficial peroneal, deep peroneal, tibial, sural, saphenous nerve distributions -Motor function of quad, tibialis anterior, extensor hallucis longus, and gactrocsoleus complex intact -Skin intact except where noted below -Painless pROM at hip/knee/ankle Patient able to actively move hip and knee without issue. Mildly painful to palpation over areas ofecchymosis that he states have been present since being stepped on by his cow. Labs: CBC: Lab Results Component Value Date WBC 24.3 (H) 07/06/2024 RBC 3.99 (L) 07/06/2024 BMP: Lab Results Component Value Date GLUCOSE 148 (H) 07/06/2024 CO2 17 (L) 07/06/2024 BUN 21 (H) 07/06/2024 CREATININE 0.89 07/06/2024 CALCIUM 9.7 07/06/2024 PT/INR: Lab Results Component Value Date APTT 57.5 (H) 07/07/2024 Type and Screen: No results found for: RH, LABANTI CRP: No results found for: CRP ESR: No results found for: SEDRATE HgBA1c: No components found for: LABA1C The above labs were reviewed by me. Radiology: The below images were independently reviewed and interpreted with pertinent findings noted below. XR: Right clavicle: Comminuted right clavicle fracture similar in appearance to prior imaging. A small fragment of comminution of the distal clavicle can be visualized that was not seen on prior imaging.Overall, the alignment of the 2 major fragments of the clavicle appear well aligned. Left femur: No acute fracture or dislocation. Well-fixed left total knee without signs of loosening. Radiology reports reviewed. ASSESSMENT: 74 y.o. male with comminuted right clavicle fracture PLAN: -wD/W Dr. Stroud -No acute surgical intervention -NWB RUE -Activity as tolerated -Ice & elevate -Neurovascular checks -Skin checks -Follow-up outpatient with Dr. Stroud -medical management per primary team -Orthopaedic surgery will sign off. Please page coconut cooker orthopaedic resident for questions or concerns. Maximus Baron MD Orthopaedic Surgery PGY1 07/07/2024 2:56 PM Fadumo Healy MD PGY-2, Orthopaedic Surgery 07/07/24 4:32 PM Cosigned by John Christian MD at 07/07/2024 9:00 PM EDT * Tiffany Zaragoza DO - 07/07/2024 10:13 AM EDTAssociated Order(s): Inpatient consult to Pulmonology PULMONOLOGY CONSULT NOTE 07/07/2024 10:13 AM Reason for consult: Pulmonary emboli Inpatient consult to Pulmonology Consult performed by: Tiffany Zaragoza DO Consult ordered by: Hussein Paredes, CREEL CLERK - MORALE OFFICER Subjective: Admit Date: 07/06/2024 PCP: Aidan Argueta MD HPI: Avery Vasquez is a 74-year-old male with history of HTN, HLD, DM, recent admission for traumatic rightSAH who represented with weakness, admitted with multiple segmental pulmonary emboli. Patient reported feeling well until yesterday when he began having fatigue and weakness. While showering stated that his legs gave out and he slid down the shower wall. Denied any syncope. Denied any chest pain, shortness of breath, chest pressure, lightheadedness, prior VTE, recent fevers, chills, cough. Currently on heparin drip and feeling improved. Up-to-date with colonoscopies. Minimal remote cigar smoking history. Past Medical History: No past medical history on file. Past Surgical History: No past surgical history on file. Allergies: Allergies Allergen Reactions Bactrim [Sulfamethoxazole-Trimethoprim] Hives Hydrocodone-Acetaminophen Nausea And Vomiting Lisinopril Cough Tramadol Rash and Dizziness Social History: Social History Substance and Sexual Activity Alcohol Use Yes Comment: [facility] Social History Substance and Sexual Activity Drug Use Never Social History Tobacco Use Smoking Status Never Smokeless Tobacco Never Family History: No family history on file. Review of Systems Constitutional: Positive for fatigue. Negative for chills and fever. HENT: Negative. Respiratory: Negative. Cardiovascular: Positive for leg swelling. Neurological: Negative. Medications: Scheduled Meds:acetaminophen, 1,000 mg, IntraVENous, q8h insulin lispro, 0-12 Units, SubCUTAneous, TID WC And insulin lispro, 0-12 Units, SubCUTAneous, Nightly ipratropium-albuterol, 3 mL, Nebulization, BID mupirocin, 1 Application, Nasal, BID Continuous Infusions:heparin, 5-30 Units/kg/hr, Last Rate: 17 Units/kg/hr (07/07/24 0720) sodium chloride, 100 mL/hr, Last Rate: 100 mL/hr (07/06/24 2312) Labs: Available labs were personally reviewed. Some notable findings are listed here. CBC: Recent Labs 07/06/24 2301 WBC 24.3* HGB 11.9* PLT 239 BMP: Recent Labs 07/06/24 2253 NA 132* K 4.9 CL 106 CO2 17* BUN 21* CREATININE 0.89 GLUCOSE 148* Hepatic: No results for input(s): AST, ALT, BILITOT, ALKPHOS in the last 72 hours. No lab exists for component: ALB Troponin: Recent Labs 07/07/24 0643 TROPONINI 0.066* BNP: Recent Labs 07/06/24 2253 BNP 423* : No results for input(s): CHOL, HDL in the last 72 hours. No lab exists for component: LDLCALCU INR: No results for input(s): INR in the last 72 hours. Imaging: Available studies were personally reviewed. Salient findings are summarized in HPI and A/P Objective: Vitals: BP 131/63 Pulse 92 Temp 36.8 C (98.2 F) (Temporal) Resp 23 SpO2 94% Physical Exam Vitals reviewed. Constitutional: General: He is not in acute distress. Appearance: Normal appearance. HENT: Head: Normocephalic and atraumatic. Mouth/Throat: Mouth: Mucous membranes are moist. Eyes: General: No scleral icterus. Extraocular Movements: Extraocular movements intact. Cardiovascular: Rate and Rhythm: Normal rate and regular rhythm. Pulmonary: Effort: Pulmonary effort is normal. No respiratory distress. Breath sounds: Normal breath sounds. No wheezing or rales. Musculoskeletal: Comments: Left thigh bruising and scarring Skin: General: Skin is warm and dry. Neurological: Mental Status: He is alert and oriented to person, place, and time. Psychiatric: Mood and Affect: Mood normal. Assessment and Plan: Segmental bilateral pulmonary emboli SDH Recent admission for SAH, multiple right rib fractures and right clavicular fracture Hypoxemic respiratory failure Chest CTA 07/06/2024 from [facility], report in chart, positive for segmental PE in the bilateral lower lobes, right upper lobe, and lingula. Please request images to review. Hemodynamically stable. Troponins downtrending. TTE and lower extremity Dopplers pending. Discussedthat VTE appears to be provoked in setting of recent trauma. Up-to-date with routine cancer screenings. Currently on heparin drip. NCC following, plan for follow-up head CT in 24 hours to ensure stability of SDH. 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 If unable to continue OAC outpatient, may benefit from IVC filter if dopplers are positive. Start bowel regimen to avoid straining. Noted with leukocytosis, unclear etiology. Pending x-rays of left leg as patient reported recently being kicked by a cow, noted with bruising and tenderness. Defer infectious evaluation to primary team. DC supplemental O2 Discussed that he will need follow-up with PE clinic outpatient. Tiffany Zaragoza DO Pulmonary and Critical Care Portions of the information within this encounter were entered using an electronic dictation system. Best attempts were made to edit/proofread the information prior to note completion. Despite the review of information, some errors may remain. If there are questions related to the information contained within the note please contact the signing physician directly. * Mikel Zamora MD - 07/07/2024 9:35 AM EDTAssociated Order(s): IP CONSULT TO NEUROSURGERY Reason For Consult PE, history of SDH History Of Present Illness Avery Vasquez is a 74 y.o. male presenting with a syncopal episode, found to have a B PE. He has a history of recent fall with small SDH. Past Medical History He has no past medical history on file. Surgical History He has no past surgical history on file. Social History He reports that he has never smoked. He has never used smokeless tobacco. He reports current alcohol use. He reports that he does not use drugs. Allergies Bactrim [sulfamethoxazole-trimethoprim], Hydrocodone-acetaminophen, Lisinopril, and Tramadol Medications Medications Prior to Admission Medication Sig Dispense Refill Last Dose/Taking atorvastatin (Lipitor) 10 MG tablet Take 10 mg by mouth Nightly. bacitracin 500 UNIT/GM ointment Apply topically 3 times daily. 14 g 0 Calcium Carbonate-Vit D-Min (Calcium 600+D3 Plus Minerals) 600-800 MG-UNIT tablet Take 1 tablet by mouth daily. dapagliflozin (Farxiga) 10 MG tablet Take 10 mg by mouth daily. dulaglutide (Trulicity) 0.75 MG/0.5ML Inject 0.75 mg under the skin 1 (one) time per week. glimepiride (Amaryl) 1 MG tablet Take 1 mg by mouth daily (with breakfast). levETIRAcetam (Keppra) 500 MG tablet Take 1 tablet (500 mg) by mouth 2 times daily for 12 doses. 12tablet 0 Lidocaine 4 % patch Place 1 patch on the skin daily. (Patient not taking: Reported on 07/03/2024) 30 patch 0 metFORMIN (Glucophage) 500 MG tablet Take 500 mg by mouth in the morning and 500 mg in the evening.Take with meals. Multiple Vitamins-Minerals (MULTIVITAMIN ADULT, MINERALS, PO) Take 1 tablet by mouth daily. [] oxyCODONE (Roxicodone) 5 MG immediate release tablet Take 1 tablet (5 mg) by mouth in themorning and 1 tablet (5 mg) in the evening. Do all this for 3 days. 6 tablet 0 tamsulosin (Flomax) 0.4 MG 24 hr capsule Take 0.4 mg by mouth Nightly. valsartan (Diovan) 160 MG tablet Take 160 mg by mouth 2 times daily. Review of Systems Denies KAUFMAN Physical Exam OE spon + FC O x 3 5/5 B UE and LE Last Recorded Vitals Blood pressure 131/63, pulse 92, temperature 36.8 C (98.2 F), temperature source Temporal, resp. rate 23, SpO2 94%. Relevant Results CT head shows small L subdural hygroma, no mass effect, no shift. No acute blood. Assessment/Plan Principal Problem: Acute pulmonary embolism without acute cor pulmonale, unspecified pulmonary embolism type (HCC) No surgery is needed for his current CT head. He is not a candidate for surgery should it become necessary secondary to his PE. Ok for anticoagulation per ICU team. * Maximus Covarrubias MD - 07/07/2024 8:26 AM EDTAssociated Order(s): IP CONSULT TO NEUROLOGY NEUROCRITICAL CARE CONSULT NOTE Patient Name: Avery Vasquez Patient : 1950 Acct: [id number] Date of Admission: 07/06/2024 Room/Bed: [facility]212/[facility] A PCP: Aidan Argueta MD Chief Complaint: need for AC post ICH History of Present Ilness: Avery Vasquez is a 74 yo M who was recently admitted after a TBI who presents against to the hospital after a near syncopal event found to have bilateral segmental PEs. The patient is neurologically intact. NCC was consulted along with NSG for risk stratification of AC in the setting of intracranial findings. Past Medical History: NA Past Surgical History: NA Home Medications: Prior to Admission medications Medication Sig Start Date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 ml Physical exam- Physical Exam Vitals reviewed. Constitutional: General: He is not in acute distress. Appearance: Normal appearance. HENT: Head: Normocephalic and atraumatic. Nose: Comments: NC in place Mouth/Throat: Mouth: Mucous membranes are moist. Eyes: General: No scleral icterus. Extraocular Movements: Extraocular movements intact. Cardiovascular: Rate and Rhythm: Normal rate and regular rhythm. Pulmonary: Effort: Pulmonary effort is normal. No respiratory distress. Breath sounds: Normal breath sounds. No wheezing or rales. Abdominal: General: There is distension. Tenderness: There is no abdominal tenderness. There is no guarding. Musculoskeletal: General: No swelling or tenderness. Skin: General: Skin is warm and dry. Neurological: Mental Status: He is alert and oriented to person, place, and time. Psychiatric: Mood and Affect: Mood normal. Routine labs: Recent Labs 07/06/24 2301 07/07/24 1823 07/07/24 1838 07/08/24 0639 WBC 24.3* -- 10.0 9.0 HGB 11.9* 12.7 10.4* 10.7* HCT 35.2* -- 30.8* 32.8* PLT 239 -- 136* 156 Recent Labs 07/06/24 2253 07/07/24 1838 07/08/24 0639 NA 132* 131* 132* K 4.9 3.4* 4.0 CL 106 106 104 CO2 17* 15* 18* BUN 21* 19 19 CREATININE 0.89 0.78 0.79 No results for input(s): GLU in the last 72 hours. Other Laboratory - Imaging Studies: Reviewed and as per electronic record. CxR/CT images personally reviewed by me when available; salient findings summarized in A/P. ASSESSMENT AND PLAN: Segmental bilateral pulmonary emboli SDH Recent admission for SAH, multiple right rib fractures and right clavicular fracture Hypoxemic respiratory failure Chest CTA 07/06/2024 from [facility], report in chart, positive for segmental PE in the bilateral lower lobes, right upper lobe, and lingula. Please request images to review. Episode of fever to 102.3 last night with tachycardia, tachypnea, hypotension, and encephalopathy. Hemodynamically stable this morning. Troponins downtrending. TTE with RV dilation, RVSP 59. Lower extremity Dopplers negative for DVTs. Discussed that VTE appears to be provoked in setting of recent trauma. Up-to-date with routine cancer screenings. Currently therapeutic on heparin drip. Evaluated by NCC, SDH stable. Discussed imaging findings with patient and recommend for 3 months of oral anticoagulation while benefits outweigh risk. 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 Discussed risks of trauma and bleeding from future injuries including requiring hospitalization, transfusions, and . When transition to OAC, favor Coumadin for ease of reversibility if needed. Constipated, start bowel regimen to avoid straining. 3L positive this admission though I/Os may not be accurate. Monitor daily weights. Would d/c IVF give RV overload on TTE Leukocytosis on admission which has resolved. Noted however with rising procalcitonin and fever to 102 overnight. Recommend continued infectious evaluation Titrate off O2 NC PT, OOBTC. Will arrange for follow-up with PE clinic outpatient upon discharge Tiffany Zaragoza DO Pulmonary and Critical Care Portions of the information within this encounter were entered using an electronic dictation system. Best attempts were made to (more content not included)...[facility]11-03-2024 NoteNEUROCRITICAL CARE PROGRESS NOTE Patient Name: Avery Vasquez Patient : 1950 Acct: [id number] Date of Admission: 07/06/2024 Room/Bed: T2/T2 A PCP: Aidan Argueta MD Chief Complaint: PE with ICH Interval Events: - CT head stable - Neuro exam stable Current Hospital Medications: Current Facility-Administered Medications: acetaminophen (Ofirmev) IVPB 1,000 mg, 1,000 mg, IntraVENous, q8h, Lavern Natalie, MD, Stopped at 07/08/24 0655 dextrose 5 % infusion, 100 mL/hr, IntraVENous, PRN, Poncho Cortez MD dextrose 50 % solution 12.5 g, 12.5 g, IntraVENous, PRN, Poncho Cortez MD glucagon (human recombinant) injection 1 mg, 1 mg, IntraMUSCular, PRN, Poncho Cortez MD glucose oral gel 15 g, 15 g, Oral, PRN, Poncho Cortez MD heparin 25,000 units in dextrose 5% 250mL infusion (premix), 5-30 Units/kg/hr, IntraVENous, Continuous, Poncho Cortez MD, Last Rate: 18 mL/hr at 07/08/24 0135, 17 Units/kg/hr at 07/08/24 0135 hydrALAZINE (Apresoline) injection 10 mg, 10 mg, IntraVENous, q4h PRN, Lavern Estrada MD HYDROmorphone (Dilaudid) injection 0.25 mg, 0.25 mg, IntraVENous, q3h PRN OR HYDROmorphone (Dilaudid) injection 0.5 mg, 0.5 mg, IntraVENous, q3h PRN, Poncho Cortez MD Insulin Lispro (Humalog) injection 0-12 Units, 0-12 Units, SubCUTAneous, TID WC, 2 Units at 07/07/24 1712 AND Insulin Lispro (Humalog) injection 0-12 Units, 0-12 Units, SubCUTAneous, Nightly, Poncho Cortez MD, 4 Units at 07/07/242038 ipratropium-albuterol (Duo-Neb) 0.5-2.5 mg/3 mL nebulizer solution 3 mL, 3 mL, Nebulization, 4x daily, Lavern Estrada MD labetalol (Normodyne,Trandate) injection 10 mg, 10 mg, IntraVENous, q4h PRN, Lavern Estrada MD, 10 mg at 07/07/24 2040 mupirocin (Bactroban) 2 % ointment 1 Application, 1 Application, Nasal, BID, Poncho Cortez MD, 1 Application at 07/07/24 0817 naloxone (Narcan) injection 0.4 mg, 0.4 mg, IntraVENous, q5 min PRN, Diana Stovall MD ondansetron ODT (Zofran-ODT) disintegrating tablet 4 mg, 4 mg, Oral, q8h PRN OR ondansetron (Zofran) injection 4 mg, 4 mg, IntraVENous, q6h PRN, Poncho Cortez MD, 4 mg at 07/07/24 1835 oxyCODONE (Roxicodone) immediate release tablet 5 mg, 5 mg, Oral, q4h PRN, 5 mg at 07/07/24 1257 OR oxyCODONE (Roxicodone) immediate release tablet 10 mg, 10 mg, Oral, q4h PRN, Poncho Cortez MD polyethylene glycol (PEG) 3350 (Miralax) packet 17 g, 17 g, Oral, Daily PRN, Poncho Cortez MD sodium chloride 0.9 % infusion, 5-250 mL/hr, IntraVENous, PRN, Poncho Cortez MD sodium chloride 0.9 % infusion, 50 mL/hr, IntraVENous, Continuous, Diana Stovall MD, Last Rate: 50 mL/hr at 07/08/24 024, 50 mL/hr at 07/08/24 024 Continuous Infusions: heparin, 5-30 Units/kg/hr, Last Rate: 17 Units/kg/hr (07/08/24 0135) sodium chloride, 50 mL/hr, Last Rate: 50 mL/hr (07/08/24 0246) Vitals: Patient Vitals for the past 8 hrs: BP Pulse Resp SpO2 07/08/24 0500 125/76 81 17 100 % 07/08/24 0405 -- 67 -- 100 % 07/08/24 0400 107/69 69 17 100 % 07/08/24 0300 114/79 74 18 100 % 07/08/24 0200 108/69 80 19 100 % I/O last 3 completed shifts: In: 4211 (39.7 mL/kg) [P.O.:1100; I.V.:3111 (29.3 mL/kg)] Out: 1350 (12.7 mL/kg) [Urine:1350 (0.4 mL/kg/hr)] Weight: 106.1 kg Physical Examination: General: Well appearing and well developed. HEENT: Normocephalic and atraumatic. Cardiac: Regular rate and rhythm Pulm: Tachypnea GI/: Nondistended, nontender. Ext: No edema. Skin: No rashes or lesions. Neuro: Aox4. Expressive and receptive language intact. PERRL. EOMI. Midline gaze. VFI. Face symmetric. V1-V3 sensation intact. Palate rise symmetrical. Shoulder shrug intact. Tongue midline. LUE 5/5 LLE 5/5 RUE 5/5 RLE 5/5 Sensation intact to light touch and pinprick No ataxia or dysmetria. No extinction or neglect. Gait deferred in acute setting. Results: Recent Results (from the past 24 hours) POCT glucose meter Collection Time: 07/07/24 11:47 AM Result Value Ref Range Glucose 144 (H) 70 - 100 mg/dL Transthoracic echocardiogram (TTE) complete with contrast, bubble, strain, and 3D PRN Collection Time: 07/07/24 12:05 PM Result Value Ref Range IVSd 1.2 (A) 0.6 - 1.0 cm LVIDd 5.1 4.2 - 5.9 cm LVIDs 3.5 cm LVOT Diameter 2.5 cm LVPWd 0.9 0.6 - 1.0 cm EF BP 63 55 - 100 % LV Ejection Fraction A2C 63 % LV Ejection Fraction A4C 63 % LV EDV A2C 144 mL LV EDV A4C 158 mL LV EDV BP 151 67 - 155 mL LV ESV A2C 53 mL LV ESV A4C 58 mL LV ESV BP 56 22 - 58 mL LVOT Cardiac Output 8.7 liter/minute LVOT Peak Gradient 6 mmHg LVOT Mean Gradient 3 mmHg LVOT SV 103.5 ml LVOT Peak Velocity 1.2 m/s LVOT VTI 21.1 cm RV Longitudinal Dimension 7.2 cm RV Mid Dimension 3.0 cm RV Basal Dimension 4.5 cm RV Free Wall Peak S' 19 cm/s LA Diameter 4.1 cm LA Volume A/L 55 mL LA Volume 2C 51 18 - 58 mL LA Volume 4C 48 18 - 58 mL LA Volume BP 51 18 - 58 mL AV Area by Peak Velocit (more content not included)...[facility] 07-07-2024 Hospital Discharge instructions* Discharge Instructions* Maximus Baron MD - 07/07/2024 4:00 PM EDT Images from the original note were not included. Orthopaedic Surgery Discharge Instructions: -Nonweight bearing right upper extremity in sling - Activity as tolerated - Ice to reduce pain and swelling. Do not put ice directly on the skin. -Follow-up outpatient with Dr. Stroud in one week. The office contact information is provided in your paperwork. -Take medications as prescribed by the hospital doctors * Discharge Instr - Activity* TAYLOR Gregorio CNP - 07/12/2024 11:24 AM EST PT/OT * Discharge Instr - Diet* TAYLOR Gregorio CNP - 07/12/2024 11:25 AM EST Carb Control diet * Discharge Instr - Other Orders* TAYLOR Gregorio CNP - 07/12/2024 1:24 PM EST Behavioral Health Resources for Trauma Survivors After experiencing a traumatic event, some people may find that they experience psychological distress that can impact their daily functioning and relationships. Common reactions to traumatic events include having unwanted memories or dreams of the event, feeling upset when reminded of the event, tr elicia to avoid things that may remind you of the event, or experiencing changes in your thinking, relationships, and behaviors that negatively impact your life. There are resources, including counseling and medications, that can help you to talk about and adjust to the traumatic event and limit its impact on your life. Please consider calling one of the following behavioral health agencies for supp ort: [facility] [address] [place] [address] [address], [place] [id number] [address], [place] [address], [facility] [address] Should you be out of the [facility] area, you can use this resource to locate local mental health agencies: Findtreatment[employer] Victim Assistance Program- provides resources and support to victims of violent crimes, offers victim advocates for those involved in legal proceedings 219-964-5082 Should you need immediate help in coping with symptoms or should you feel at risk of harming yourself or others, please use the following crisis resources: Crisis Hotline: 988 Crisis Text Helpine: Text 4HOPE to 020977 Call 911 or go to your nearest emergency department * Discharge Instr - LANG* Patito King RN - 07/10/2024 11:13 AM EST documented in this [facility]11-02-2024 Consult note* Fadumo Healy MD - 07/07/2024 2:55 PM EDTAssociated Order(s): IP CONSULT TO ORTHOPAEDIC SURGERY Images from the original note were not included. Ortho Consult Patient: Avery Vasquez Date of : 1950 Acct: [id number] PCP: Aidan Argueta MD Date of Admission: 07/06/2024 Date of Service: Pt seen/examined on 07/07/2024 Chief Complaint: R clavicle fx follow up History Of Present Illness: This is a 74 y.o. male who was scheduled for his 1 week followup visit with Dr. Stroud but unable to go given his current hospital stay. Patient states that his pain has been well-controlled. He states that he has remained in his sling since initial injury. His current hospital admission is for workup following a syncopal event in the shower. He states that during this syncopal event, he does not believe that he further injured his right shoulder/clavicle. His recent hospital admission on 06/26/24 was for being run over by cow. At that time, he broke hisright clavicle and had significant ecchymosis to his left thigh where the cow stepped on him. He states that the pain in his left thigh has continued to improve and he is able to move his knee without much issue. Past orthopedic surgical history significant for bilateral shoulder arthroplasty and bilateral kneearthroplasty. He also states that he acquired a large left thigh hematoma following his left total knee arthroplasty. The hematoma had to be evacuated surgically. He denies tobacco, alcohol, or illicit drug use. Patient ambulation status: no difficulty Antiplatelets/Anticoagulation includes: none Hx from chart and/or Pt. Past Medical History: No past medical history on file. Past Surgical History: No past surgical history on file. Home Medications: Prior to Admission medications Medication Sig Start Date End Date Taking? Authorizing Provider atorvastatin (Lipitor) 10 MG tablet Take 10 mg by mouth Nightly. Historical Provider, bacitracin 500 UNIT/GM ointment Apply topically 3 times daily. 06/27/24 Price Monae MD Calcium Carbonate-Vit D-Min (Calcium 600+D3 Plus Minerals) 600-800 MG-UNIT tablet Take 1 tablet by mouth daily. Historical Provider, dapagliflozin (Farxiga) 10 MG tablet Take 10 mg by mouth daily. Historical Provider, dulaglutide (Trulicity) 0.75 MG/0.5ML Inject 0.75 mg under the skin 1 (one) time per week. Historical Provider, glimepiride (Amaryl) 1 MG tablet Take 1 mg by mouth daily (with breakfast). Historical Provider, levETIRAcetam (Keppra) 500 MG tablet Take 1 tablet (500 mg) by mouth 2 times daily for 12 doses. 06/27/24 07/03/24 Price Monae MD Lidocaine 4 % patch Place 1 patch on the skin daily. Patient not taking: Reported on 07/03/2024 06/28/24 07/28/24 Price Monae MD metFORMIN (Glucophage) 500 MG tablet Take 500 mg by mouth in the morning and 500 mg in the evening.Take with meals. Historical Provider, Multiple Vitamins-Minerals (MULTIVITAMIN ADULT, MINERALS, PO) Take 1 tablet by mouth daily. Historical Provider, oxyCODONE (Roxicodone) 5 MG immediate release tablet Take 1 tablet (5 mg) by mouth in the morning and 1 tablet (5 mg) in the evening. Do all this for 3 days. 06/27/24 06/30/24 Price Monae MD tamsulosin (Flomax) 0.4 MG 24 hr capsule Take 0.4 mg by mouth Nightly. Historical Provider, valsartan (Diovan) 160 MG tablet Take 160 mg by mouth 2 times daily. Historical Provider, Current Hospital Medications: Current Facility-Administered Medications: acetaminophen (Ofirmev) IVPB 1,000 mg, 1,000 mg, IntraVENous, q8h, Poncho Cortez MD, Last Rate: 400 mL/hr at 07/07/24 1452, 1,000 mg at 07/07/24 1452 dextrose 5 % infusion, 100 mL/hr, IntraVENous, PRN, Poncho Cortez MD dextrose 50 % solution 12.5 g, 12.5 g, IntraVENous, PRN, Poncho Cortez MD glucagon (human recombinant) injection 1 mg, 1 mg, IntraMUSCular, PRN, Poncho Cortez MD glucose oral gel 15 g, 15 g, Oral, PRN, Poncho Cortez MD heparin 25,000 units in dextrose 5% 250mL infusion (premix), 5-30 Units/kg/hr, IntraVENous, Continuous, Poncho Cortez MD, Last Rate: 18 mL/hr at 07/07/24 1421, 17 Units/kg/hr at 07/07/24 1421 HYDROmorphone (Dilaudid) injection 0.25 mg, 0.25 mg, IntraVENous, q3h PRN OR HYDROmorphone (Dilaudid) injection 0.5 mg, 0.5 mg, IntraVENous, q3h PRN, Poncho Cortez MD Insulin Lispro (Humalog) injection 0-12 Units, 0-12 Units, SubCUTAneous, TID WC, 2 Units at 07/07/24 1153 AND Insulin Lispro (Humalog) injection 0-12 Units, 0-12 Units, SubCUTAneous, Nightly, Poncho Cortez MD, 2 Units at 07/07/24 0053 ipratropium-albuterol (Duo-Neb) 0.5-2.5 mg/3 mL nebulizer solution 3 mL, 3 mL, Nebulization, BID, Poncho Cortez MD, 3 mL at 07/07/24 0907 mupirocin (Bactroban) 2 % ointment 1 Application, 1 Application, Nasal, BID, Poncho Cortez MD, 1 Application at 07/07/24 0817 naloxone (Narcan) injection 0.4 mg, 0.4 mg, IntraVENous, q5 min PRN, Diana Stovall MD ondansetron ODT (Zofran-ODT) disintegrating tablet 4 mg, 4 mg, Oral, q8h PRN OR ondansetron (Zofran) injection 4 mg, 4 mg, IntraVENous, q6h PRN, Poncho Cortez MD oxyCODONE (Roxicodone) immediate release tablet 5 mg, 5 mg, Oral, q4h PRN, 5 mg at 07/07/24 1257 OR oxyCODONE (Roxicodone) immediate release tablet 10 mg, 10 mg, Oral, q4h PRN, Poncho Cortez MD polyethylene glycol (PEG) 3350 (Miralax) packet 17 g, 17 g, Oral, Daily PRN, Poncho Cortez MD sodium chloride 0.9 % infusion, 5-250 mL/hr, IntraVENous, PRN, Poncho Cortez MD sodium chloride 0.9 % infusion, 50 mL/hr, IntraVENous, Continuous, Diana Stovall MD, Last Rate: 50mL/hr at 07/07/24 1321, 50 mL/hr at 07/07/24 1321 Allergies: Bactrim [sulfamethoxazole-trimethoprim], Hydrocodone-acetaminophen, Lisinopril, and Tramadol Social History: Social History Socioeconomic History Marital status: Spouse name: Not on file Number of children: Not on file Years of education: Not on file Highest education level: Not on file Occupational History Not on file Tobacco Use Smoking status: Never Smokeless tobacco: Never Substance and Sexual Activity Alcohol use: Yes Comment: occ Drug use: Never Sexual activity: Not on file Other Topics Concern Not on file Social History Narrative Not on file Social Drivers of Health Financial Resource Strain: Not on file Food Insecurity: Not on file Transportation Needs: Not on file Physical Activity: Not on file Stress: Not on file Social Connections: Not on file Intimate Partner Violence: Not on file Housing Stability: Not on file Family History: No family history on file. Further Family History is noncontributory to this injury. REVIEW OF SYSTEMS: Review of Systems - General ROS: negative for - chills, fatigue, fever, malaise or night sweats Psychological ROS: negative Ophthalmic ROS: negative ENT ROS: negative for - headaches or sore throat Hematological and Lymphatic ROS: negative for - bleeding problems or blood clots Respiratory ROS: no cough, shortness of breath, or wheezing Cardiovascular ROS: no chest pain or dyspnea on exertion Gastrointestinal ROS: negative Musculoskeletal ROS: See HPI Neurological ROS: negative for - bowel and bladder control changes, gait disturbance or numbness/tingling All other systems reviewed and are negative PHYSICAL EXAM: BP 131/87 Pulse 90 Temp 36.3 C (97.3 F) (Temporal) Resp (!) 31 Ht 1.702 m (5' 7) Wt 106 kg (234 lb) SpO2 99% BMI 36.65 kg/m GENERAL APPEARANCE: Awake and oriented x3. No acute distress, except appropriate to injury. MOOD AND AFFECT: Calm appropriate to situation GAIT AND STATION: Patient is in bed COORDINATION and BALANCE: Patient is grossly coordinated unable to ambulate secondary to non-orthopedic restrictions Right Upper Extremity: -No obvious pain or deformity to inspection with normal joint range of motion, stability, and muscle strength except noted below -No TTP over humerus, elbow, forearm, wrist, hand, or fingers -TTP: Clavicle and Shoulder -Radial pulse palpable -SILT in radial/median/ ulnar nerve distributions -Motor + AIN/PIN/ulnar nerve functions -Skin intact except where noted below -Painless pROM at shoulder/elbow/wrist No skin tenting or compromised skin. Moderate ecchymosis surrounding the right shoulder/clavicle. No obvious deformity Left Upper Extremity: -No obvious pain or deformity to inspection with normal joint range of motion, stability, and muscle strength except noted below -No TTP over clavicle, shoulder, humerus, elbow, forearm, wrist, hand, or fingers -TTP: nontender throughout extremity -Radial pulse palpable -SILT in radial/median/ ulnar nerve distributions -Motor + AIN/PIN/ulnar nerve functions -Skin intact except where noted below -Painless pROM at shoulder/elbow/wrist Right Lower Extremity: -No obvious pain or deformity to inspection with normal joint range of motion, stability, and muscle strength except noted below -No TTP over pelvis, hip, thigh, knee, tibia, lateral mal, medial mal, calc, midfoot, forefoot -TTP: Nontender throughout extremity -Pulse: DP Palpable, PT Palpable -SILT in the superficial peroneal, deep peroneal, tibial, sural, saphenous nerve distributions -Motor function of quad, tibialis anterior, extensor hallucis longus, and gactrocsoleus complex intact -Skin intact except where noted below -Painless pROM at hip/knee/ankle Left Lower Extremity: -No obvious pain or deformity to inspection with normal joint range of motion, stability, and muscle strength except noted below -No TTP over pelvis, hip, thigh, knee, tibia, lateral mal, medial mal, calc, midfoot, forefoot -TTP: thigh -Pulse: DP Palpable, PT Palpable -SILT in the superficial peroneal, deep peroneal, tibial, sural, saphenous nerve distributions -Motor function of quad, tibialis anterior, extensor hallucis longus, and gactrocsoleus complex intact -Skin intact except where noted below -Painless pROM at hip/knee/ankle Patient able to actively move hip and knee without issue. Mildly painful to palpation over areas ofecchymosis that he states have been present since being stepped on by his cow. Labs: CBC: Lab Results Component Value Date WBC 24.3 (H) 07/06/2024 RBC 3.99 (L) 07/06/2024 BMP: Lab Results Component Value Date GLUCOSE 148 (H) 07/06/2024 CO2 17 (L) 07/06/2024 BUN 21 (H) 07/06/2024 CREATININE 0.89 07/06/2024 CALCIUM 9.7 07/06/2024 PT/INR: Lab Results Component Value Date APTT 57.5 (H) 07/07/2024 Type and Screen: No results found for: RH, LABANTI CRP: No results found for: CRP ESR: No results found for: SEDRATE HgBA1c: No components found for: LABA1C The above labs were reviewed by me. Radiology: The below images were independently reviewed and interpreted with pertinent findings noted below. XR: Right clavicle: Comminuted right clavicle fracture similar in appearance to prior imaging. A small fragment of comminution of the distal clavicle can be visualized that was not seen on prior imaging.Overall, the alignment of the 2 major fragments of the clavicle appear well aligned. Left femur: No acute fracture or dislocation. Well-fixed left total knee without signs of loosening. Radiology reports reviewed. ASSESSMENT: 74 y.o. male with comminuted right clavicle fracture PLAN: -wD/W Dr. Stroud -No acute surgical intervention -NWB RUE -Activity as tolerated -Ice & elevate -Neurovascular checks -Skin checks -Follow-up outpatient with Dr. Stroud -medical management per primary team -Orthopaedic surgery will sign off. Please page coconut cooker orthopaedic resident for questions or concerns. Maximus Baron MD Orthopaedic Surgery PGY1 07/07/2024 2:56 PM Fadumo Healy MD PGY-2, Orthopaedic Surgery 07/07/24 4:32 PM Cosigned by John Christian MD at 07/07/2024 9:00 PM EDT [facility] Phone: 1(842) 656-537511-02-2024 Consult note* Tiffany Zaragoza DO - 07/07/2024 10:13 AM EDTAssociated Order(s): Inpatient consult to Pulmonology PULMONOLOGY CONSULT NOTE 07/07/2024 10:13 AM Reason for consult: Pulmonary emboli Inpatient consult to Pulmonology Consult performed by: Tiffany Zaragoza DO Consult ordered by: Hussein Paredes APRN - [employer] OFF[employer]ER Subjective: Admit Date: 07/06/2024 PCP: Aidan Argueta MD HPI: Avery Vasquez is a 74-year-old male with history of HTN, HLD, DM, recent admission for traumatic rightSAH who represented with weakness, admitted with multiple segmental pulmonary emboli. Patient reported feeling well until yesterday when he began having fatigue and weakness. While showering stated that his legs gave out and he slid down the shower wall. Denied any syncope. Denied any chest pain, shortness of breath, chest pressure, lightheadedness, prior VTE, recent fevers, chills, cough. Currently on heparin drip and feeling improved. Up-to-date with colonoscopies. Minimal remote cigar smoking history. Past Medical History: No past medical history on file. Past Surgical History: No past surgical history on file. Allergies: Allergies Allergen Reactions Bactrim [Sulfamethoxazole-Trimethoprim] Hives Hydrocodone-Acetaminophen Nausea And Vomiting Lisinopril Cough Tramadol Rash and Dizziness Social History: Social History Substance and Sexual Activity Alcohol Use Yes Comment: occ Social History Substance and Sexual Activity Drug Use Never Social History Tobacco Use Smoking Status Never Smokeless Tobacco Never Family History: No family history on file. Review of Systems Constitutional: Positive for fatigue. Negative for chills and fever. HENT: Negative. Respiratory: Negative. Cardiovascular: Positive for leg swelling. Neurological: Negative. Medications: Scheduled Meds:acetaminophen, 1,000 mg, IntraVENous, q8h insulin lispro, 0-12 Units, SubCUTAneous, TID WC And insulin lispro, 0-12 Units, SubCUTAneous, Nightly ipratropium-albuterol, 3 mL, Nebulization, BID mupirocin, 1 Application, Nasal, BID Continuous Infusions:heparin, 5-30 Units/kg/hr, Last Rate: 17 Units/kg/hr (07/07/24 0720) sodium chloride, 100 mL/hr, Last Rate: 100 mL/hr (07/06/24 2312) Labs: Available labs were personally reviewed. Some notable findings are listed here. CBC: Recent Labs 07/06/24 2301 WBC 24.3* HGB 11.9* PLT 239 BMP: Recent Labs 07/06/24 2253 NA 132* K 4.9 CL 106 CO2 17* BUN 21* CREATININE 0.89 GLUCOSE 148* Hepatic: No results for input(s): AST, ALT, BILITOT, ALKPHOS in the last 72 hours. No lab exists for component: ALB Troponin: Recent Labs 07/07/24 0643 TROPONINI 0.066* BNP: Recent Labs 07/06/24 2253 BNP 423* : No results for input(s): CHOL, HDL in the last 72 hours. No lab exists for component: LDLCALCU INR: No results for input(s): INR in the last 72 hours. Imaging: Available studies were personally reviewed. Salient findings are summarized in HPI and A/P Objective: Vitals: BP 131/63 Pulse 92 Temp 36.8 C (98.2 F) (Temporal) Resp 23 SpO2 94% Physical Exam Vitals reviewed. Constitutional: General: He is not in acute distress. Appearance: Normal appearance. HENT: Head: Normocephalic and atraumatic. Mouth/Throat: Mouth: Mucous membranes are moist. Eyes: General: No scleral icterus. Extraocular Movements: Extraocular movements intact. Cardiovascular: Rate and Rhythm: Normal rate and regular rhythm. Pulmonary: Effort: Pulmonary effort is normal. No respiratory distress. Breath sounds: Normal breath sounds. No wheezing or rales. Musculoskeletal: Comments: Left thigh bruising and scarring Skin: General: Skin is warm and dry. Neurological: Mental Status: He is alert and oriented to person, place, and time. Psychiatric: Mood and Affect: Mood normal. Assessment and Plan: Segmental bilateral pulmonary emboli SDH Recent admission for SAH, multiple right rib fractures and right clavicular fracture Hypoxemic respiratory failure Chest CTA 07/06/2024 from [facility], report in chart, positive for segmental PE in the bilateral lower lobes, right upper lobe, and lingula. Please request images to review. Hemodynamically stable. Troponins downtrending. TTE and lower extremity Dopplers pending. Discussedthat VTE appears to be provoked in setting of recent trauma. Up-to-date with routine cancer screenings. Currently on heparin drip. NCC following, plan for follow-up head CT in 24 hours to ensure stability of SDH. 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 If unable to continue OAC outpatient, may benefit from IVC filter if dopplers are positive. Start bowel regimen to avoid straining. Noted with leukocytosis, unclear etiology. Pending x-rays of left leg as patient reported recently being kicked by a cow, noted with bruising and tenderness. Defer infectious evaluation to primary team. DC supplemental O2 Discussed that he will need follow-up with PE clinic outpatient. Tiffany Zaragoza, DO Pulmonary and Critical Care Portions of the information within this encounter were entered using an electronic dictation system. Best attempts were made to edit/proofread the information prior to note completion. Despite the review of information, some errors may remain. If there are questions related to the information contained within the note please contact the signing physician directly. [facility] [id number] Consult note* Mikel Zamora MD - 07/07/2024 9:35 AM EDTAssociated Order(s): IP CONSULT TO NEUROSURGERY Reason For Consult PE, history of SDH History Of Present Illness Avery Vasquez is a 74 y.o. male presenting with a syncopal episode, found to have a B PE. He has a history of recent fall with small SDH. Past Medical History He has no past medical history on file. Surgical History He has no past surgical history on file. Social History He reports that he has never smoked. He has never used smokeless tobacco. He reports current alcohol use. He reports that he does not use drugs. Allergies Bactrim [sulfamethoxazole-trimethoprim], Hydrocodone-acetaminophen, Lisinopril, and Tramadol Medications Medications Prior to Admission Medication Sig Dispense Refill Last Dose/Taking atorvastatin (Lipitor) 10 MG tablet Take 10 mg by mouth Nightly. bacitracin 500 UNIT/GM ointment Apply topically 3 times daily. 14 g 0 Calcium Carbonate-Vit D-Min (Calcium 600+D3 Plus Minerals) 600-800 MG-UNIT tablet Take 1 tablet by mouth daily. dapagliflozin (Farxiga) 10 MG tablet Take 10 mg by mouth daily. dulaglutide (Trulicity) 0.75 MG/0.5ML Inject 0.75 mg under the skin 1 (one) time per week. glimepiride (Amaryl) 1 MG tablet Take 1 mg by mouth daily (with breakfast). levETIRAcetam (Keppra) 500 MG tablet Take 1 tablet (500 mg) by mouth 2 times daily for 12 doses. 12tablet 0 Lidocaine 4 % patch Place 1 patch on the skin daily. (Patient not taking: Reported on 07/03/2024) 30 patch 0 metFORMIN (Glucophage) 500 MG tablet Take 500 mg by mouth in the morning and 500 mg in the evening.Take with meals. Multiple Vitamins-Minerals (MULTIVITAMIN ADULT, MINERALS, PO) Take 1 tablet by mouth daily. [] oxyCODONE (Roxicodone) 5 MG immediate release tablet Take 1 tablet (5 mg) by mouth in themorning and 1 tablet (5 mg) in the evening. Do all this for 3 days. 6 tablet 0 tamsulosin (Flomax) 0.4 MG 24 hr capsule Take 0.4 mg by mouth Nightly. valsartan (Diovan) 160 MG tablet Take 160 mg by mouth 2 times daily. Review of Systems Denies KAUFMAN Physical Exam OE spon + FC O x 3 5/5 B UE and LE Last Recorded Vitals Blood pressure 131/63, pulse 92, temperature 36.8 C (98.2 F), temperature source Temporal, resp. rate 23, SpO2 94%. Relevant Results CT head shows small L subdural hygroma, no mass effect, no shift. No acute blood. Assessment/Plan Principal Problem: Acute pulmonary embolism without acute cor pulmonale, unspecified pulmonary embolism type (HCC) No surgery is needed for his current CT head. He is not a candidate for surgery should it become necessary secondary to his PE. Ok for anticoagulation per ICU team. [facility] [employer] Phone: [phone] Consult note* Maximus Covarrubias MD - 07/07/2024 8:26 AM EDTAssociated Order(s): IP CONSULT TO NEUROLOGY NEUROCRITICAL CARE CONSULT NOTE Patient Name: Avery Vasquez Patient : 1950 Acct: [id number] Date of Admission: 07/06/2024 Room/Bed: T2-212/[facility] A PCP: Aidan Argueta MD Chief Complaint: need for AC post ICH History of Present Ilness: Avery Vasquez is a 74 yo M who was recently admitted after a TBI who presents against to the hospital after a near syncopal event found to have bilateral segmental PEs. The patient is neurologically intact. NCC was consulted along with NSG for risk stratification of AC in the setting of intracranial findings. Past Medical History: NA Past Surgical History: NA Home Medications: Prior to Admission medications Medication Sig Start Date End Date Taking? Authorizing Provider atorvastatin (Lipitor) 10 MG tablet Take 10 mg by mouth Nightly. Historical Provider, bacitracin 500 UNIT/GM ointment Apply topically 3 times daily. 06/27/24 Price Monae MD Calcium Carbonate-Vit D-Min (Calcium 600+D3 Plus Minerals) 600-800 MG-UNIT tablet Take 1 tablet by mouth daily. Historical Provider, dapagliflozin (Farxiga) 10 MG tablet Take 10 mg by mouth daily. Historical Provider, dulaglutide (Trulicity) 0.75 MG/0.5ML Inject 0.75 mg under the skin 1 (one) time per week. Historical Provider, glimepiride (Amaryl) 1 MG tablet Take 1 mg by mouth daily (with breakfast). Historical Provider, levETIRAcetam (Keppra) 500 MG tablet Take 1 tablet (500 mg) by mouth 2 times daily for 12 doses. 06/27/24 07/03/24 Price Monae MD Lidocaine 4 % patch Place 1 patch on the skin daily. Patient not taking: Reported on 07/03/2024 06/28/24 07/28/24 Price Monae MD metFORMIN (Glucophage) 500 MG tablet Take 500 mg by mouth in the morning and 500 mg in the evening.Take with meals. Historical Provider, Multiple Vitamins-Minerals (MULTIVITAMIN ADULT, MINERALS, PO) Take 1 tablet by mouth daily. Historical Provider, oxyCODONE (Roxicodone) 5 MG immediate release tablet Take 1 tablet (5 mg) by mouth in the morning and 1 tablet (5 mg) in the evening. Do all this for 3 days. 06/27/24 06/30/24 Price Monae MD tamsulosin (Flomax) 0.4 MG 24 hr capsule Take 0.4 mg by mouth Nightly. Historical Provider, valsartan (Diovan) 160 MG tablet Take 160 mg by mouth 2 times daily. Historical Provider, Current Hospital Medications: Current Facility-Administered Medications: acetaminophen (Ofirmev) IVPB 1,000 mg, 1,000 mg, IntraVENous, q8h, Poncho Cortez MD, Stopped at 07/07/24 0650 dextrose 5 % infusion, 100 mL/hr, IntraVENous, PRN, Poncho Cortez MD dextrose 50 % solution 12.5 g, 12.5 g, IntraVENous, PRN, Poncho Cortez MD glucagon (human recombinant) injection 1 mg, 1 mg, IntraMUSCular, PRN, Poncho Cortez MD glucose oral gel 15 g, 15 g, Oral, PRN, Poncho Cortez MD heparin 25,000 units in dextrose 5% 250mL infusion (premix), 5-30 Units/kg/hr, IntraVENous, Continuous, Poncho Cortez MD, Last Rate: 18 mL/hr at 07/07/24 0720, 17 Units/kg/hr at 07/07/24 0720 HYDROmorphone (Dilaudid) injection 0.25 mg, 0.25 mg, IntraVENous, q3h PRN OR HYDROmorphone (Dilaudid) injection 0.5 mg, 0.5 mg, IntraVENous, q3h PRN, Poncho Cortez MD Insulin Lispro (Humalog) injection 0-12 Units, 0-12 Units, SubCUTAneous, TID WC, 2 Units at 07/07/24 0817 AND Insulin Lispro (Humalog) injection 0-12 Units, 0-12 Units, SubCUTAneous, Nightly, Poncho Cortez MD, 2 Units at 07/07/24 0053 ipratropium-albuterol (Duo-Neb) 0.5-2.5 mg/3 mL nebulizer solution 3 mL, 3 mL, Nebulization, BID, Poncho Cortez MD mupirocin (Bactroban) 2 % ointment 1 Application, 1 Application, Nasal, BID, Poncho Cortez MD, 1 Application at 07/07/24 0817 naloxone (Narcan) injection 0.4 mg, 0.4 mg, IntraVENous, q5 min PRN, Diana Sotvall MD ondansetron ODT (Zofran-ODT) disintegrating tablet 4 mg, 4 mg, Oral, q8h PRN OR ondansetron (Zofran) injection 4 mg, 4 mg, IntraVENous, q6h PRN, Poncho Cortez MD oxyCODONE (Roxicodone) immediate release tablet 5 mg, 5 mg, Oral, q4h PRN, 5 mg at 07/07/24 0817 OR oxyCODONE (Roxicodone) immediate release tablet 10 mg, 10 mg, Oral, q4h PRN, Poncho Cortez MD perflutren protein A microsphere (Optison) 3 mL in sodium chloride (PF) 0.9 % 10 mL IV syringe, 0-10 mL, IntraVENous, Once PRN, Hussein Paredes APRN - [place] polyethylene glycol (PEG) 3350 (Miralax) packet 17 g, 17 g, Oral, Daily PRN, Poncho Cortez MD sodium chloride 0.9 % infusion, 5-250 mL/hr, IntraVENous, PRN, Poncho Cortez MD sodium chloride 0.9 % infusion, 100 mL/hr, IntraVENous, Continuous, Poncho Cortez MD, Last Rate: 100 mL/hr at 07/06/242311, 100 mL/hr at 07/06/242311 Continuous Infusions: heparin, 5-30 Units/kg/hr, Last Rate: 17 Units/kg/hr (07/07/24 07) sodium chloride, 100 mL/hr, Last Rate: 100 mL/hr (07/06/242311) Allergies: Bactrim [sulfamethoxazole-trimethoprim], Hydrocodone-acetaminophen, Lisinopril, and Tramadol Social History: TOBACCO: reports that he has never smoked. He has never used smokeless tobacco. ETOH: reports current alcohol use. RECREATIONAL DRUG USE: Social History Substance and Sexual Activity Drug Use Never Family History: NA ROS A complete review of system was performed , pertinent positives noted and remainder are negative Vitals: Patient Vitals for the past 8 hrs: BP Pulse Resp SpO2 07/07/24 0300 145/68 98 (!) 27 100 % 07/07/24 0200 129/75 89 22 99 % 07/07/24 0100 118/74 87 23 98 % I/O last 3 completed shifts: In: 1418.4 [P.O.:500; I.V.:918.4] Out: 300 [Urine:300] Physical Examination: General: Well appearing and well developed. HEENT: Normocephalic and atraumatic. Cardiac: Regular rate and rhythm Pulm: Tachypnea GI/: Nondistended, nontender. Ext: No edema. Skin: No rashes or lesions. Neuro: Aox4. Expressive and receptive language intact. PERRL. EOMI. Midline gaze. VFI. Face symmetric. V1-V3 sensation intact. Palate rise symmetrical. Shoulder shrug intact. Tongue midline. LUE 5/5 LLE 5/5 RUE 5/5 RLE 5/5 Sensation intact to light touch and pinprick No ataxia or dysmetria. No extinction or neglect. Gait deferred in acute setting. Results: Recent Results (from the past 24 hours) Troponin, with Serial Reflex Collection Time: 07/06/24 10:53 PM Result Value Ref Range TROPONIN I 0.078 (H) <0.034 ng/mL NT PRO BNP - STAT Collection Time: 07/06/24 10:53 PM Result Value Ref Range NT PRO BNP 423 (H) <125 pg/mL Basic metabolic panel Collection Time: 07/06/24 10:53 PM Result Value Ref Range SODIUM 132 (L) 135 - 145 mmol/L POTASSIUM 4.9 3.5 - 5.1 mmol/L CHLORIDE 106 98 - 107 mmol/L CARBON DIOXIDE 17 (L) 22 - 30 mmol/L UREA NITROGEN 21 (H) 9 - 20 mg/dL CREATININE 0.89 0.66 - 1.25 mg/dL GLUCOSE 148 (H) 70 - 100 mg/dL CALCIUM 9.7 8.4 - 10.4 mg/dL ANION GAP 8 3 - 13 mmol/L eGFR 89.9 >60.0 mL/min/1.73m*2 CBC Collection Time: 07/06/24 11:01 PM Result Value Ref Range Auto WBC 24.3 (H) 3.6 - 10.7 10*3/uL RBC 3.99 (L) 4.40 - 5.90 10*6/uL Hemoglobin 11.9 (L) 13.0 - 18.0 g/dL Hematocrit 35.2 (L) 40.0 - 52.0 % MCV 88.2 77.0 - 99.0 fL MCH 29.8 26.0 - 34.0 pg MCHC 33.8 30.5 - 36.0 % RDW 14.0 11.5 - 15.0 % Platelets 239 140 - 440 10*3/uL MPV 10.2 9.0 - 12.7 fL APTT Collection Time: 07/06/24 11:01 PM Result Value Ref Range APTT 26.5 20.0 - 30.5 s APTT Collection Time: 07/07/24 12:10 AM Result Value Ref Range APTT 33.3 (H) 20.0 - 30.5 s Troponin I Collection Time: 07/07/24 12:10 AM Result Value Ref Range TROPONIN I 0.078 (H) <0.034 ng/mL POCT glucose meter Collection Time: 07/07/24 12:49 AM Result Value Ref Range Glucose 152 (H) 70 - 100 mg/dL POCT glucose meter Collection Time: 07/07/24 6:41 AM Result Value Ref Range Glucose 162 (H) 70 - 100 mg/dL APTT Collection Time: 07/07/24 6:43 AM Result Value Ref Range APTT 44.5 (H) 20.0 - 30.5 s Troponin I Collection Time: 07/07/24 6:43 AM Result Value Ref Range TROPONIN I 0.066 (H) <0.034 ng/mL POCT glucose meter Collection Time: 07/07/24 8:04 AM Result Value Ref Range Glucose 164 (H) 70 - 100 mg/dL Since admission: Recent Labs 07/06/24 2253 07/07/24 0010 07/07/24 0643 TROPONINI 0.078* 0.078* 0.066* No results for input(s): ALKPHOS, ALT, AST, BILITOT, BILIDIR, AMYLASE, LIPASE in the last 72 hours. No lab exists for component: LABALBU@[facility]) ABGs:)No results for input(s): PH, PO2, PCO2, HCO3, O2SAT in the last 72 hours. No lab exists for component: BE Cultures: Blood culture #1: No lab exists for component: BC Blood culture #2: No lab exists for component: BLOODCULT2 Antiepileptic levels: No results for input(s): PHENYTOIN, PHENOBARB, VALPROATE in the last 72 hours. No lab exists for component: CARBTOT, LAMOTRIG, KEPPRA Coagulation: No results for input(s): INR in the last 72 hours. CSF: No results for input(s): CULTURE, PROTEIN in the last 72 hours. No lab exists for component: CHARCSF, CELL COUNT, GRAM STAIN Lipids: No results for input(s): CHOL, TRIG, HDL, AMYLASE, LIPASE in the last 72 hours. No lab exists for component: LDLCHOLESTEROL HgA1c: No lab exists for component: LABA1C Radiology: CT Head 07/07 1. Tiny right parietal subdural hematoma. 2. Previously noted small volume subarachnoid hemorrhage and tiny intraparenchymal hematoma have resolved. 3. 8 mm left convexity subdural hygroma previously measured 5 mm. 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 The patient is neurologically intact. NCC was consulted along with NSG for risk stratification of AC in the setting of intracranial findings. # SDH # PE # TBI - Agree with initiation of heparin gtt without bolus - Head CT 24h after AC initiation to ensure stability - Discussed risk/benefit with patient and patient understands and also in agreement. Maximus Covarrubias MD Neurocritical Care I spent a total of 30 minutes in my independent critical care time for this neurocritically ill patient who is at high risk for both clinical and neurological decline due to further brain injury, which can occur unpredictably and rapidly cause multi-organ dysfunction. In that time I reviewed the chart including MAR, labs, neuroimaging, other imaging studies and discussed my diagnostic impression and patient's plan of care with my DENNIS/resident/fellow/student, the consulting team and patient's family members/surrogate decision makers (in cases where the patient is incapacitated and unable to participate in their own care). [facility] [id number] Plan of care note* Care Plan - Audra Finch RN - 07/07/2024 6:47 AM EDT The patient is Moderately Stable - Low risk of patient condition declining or worsening The patient's goals for the shift include comfort The clinical goals for the shift include therapeutic APTT Over the shift, the patient did not make progress toward the following goals. Barriers to progression include clinical condition. Recommendations to address these barriers include follow recommended treatment plans. [facility] [id number] Nurse Note* Audra Ficnh RN - 07/06/2024 11:42 PM EDT APTT drawn at 2301 resulted at a subtherapeutic number. Per Dr. Stovall, redraw APTT at 0000 on 07/07 to double check before adjusting IV pump per algorithm. [facility] [id number] Nurse Note* Audra Finch RN - 07/06/2024 11:42 PM EDT APTT drawn at 2301 resulted at a subtherapeutic number. Per Dr. Stovall, redraw APTT at 0000 on 07/07 to double check before adjusting IV pump per algorithm. documented in this encounterSOhioHealth Van Wert [id number] Note* Care Coordination - Hussein Paredes, TAYLOR - MORALE OFFICER - 07/06/2024 11:04 PM EDT Images from the original note were not included. PE Response Team Triage Brief HPI: This is a 74 y.o M with a PMH of HTN, HLD and DM who was recently treated at [facility] from 06/26 to 06/27 for right SDH, Multiple right rib fractures, and right distal clavicle fracture. Patient presented back to [place] ED with syncopal episode. He was tachycardic and tachypneic and hypoxic [id number] NC. Pert team activated by Dr. Stovall who reported that OSH lab work revealed no elevation in troponin and CTA chest showed b/l segmental lower lobe and right upper lobe, but no heart strain. Patient transferred to [facility] for further care. Hemodynamic instability: No Notable vital signs: None noted RV Strain: No Troponin >0.120: No No results found for: TROPONINI Risk Factors Yes [] Saddle embolism or occlusive main PA emboli [] High flow oxygen need or respiratory distress [x] Syncope [] Altered mental status (disorientation, lethargy, stupor, coma) Notable Comorbidities No [] Cancer (previous or active) [] Heart failure [] Chronic lung disease [] Concomitant DVT [] Recurrent VTE [] VTE already on anticoagulation Contraindication to Anticoagulation (AC) Contraindication to Thrombolytics Yes Yes [] Active, clinically significant bleeding [] Severe uncontrolled hypertension [] Anticipated or recent neuraxial anesthesia [] Invasive procedure or OB delivery Consult Neurocritical Care on-call attending before initiating anticoagulation if: [] Ischemic stroke within 3 months [x] Recent intracranial hemorrhage [] Structural cerebrovascular lesion or intracranial neoplasm Relative contraindications for anticoagulation -- if any of the below, consult on-call Trauma attending prior to initiating anticoagulation: [] Traumatic brain injury, including head trauma with facial fractures and negative head CT [] Spinal fractures and/or spinal cord injury [] Solid organ injuries [] Trauma-induced coagulopathy [x] Geriatric trauma [] Hemothorax [] Cardiac injuries [] Pelvic fracture(s) [] Multiple extremity fractures [] Active bleeding (excluding menses) [] Severe uncontrolled hypertension [] Significant head injury or facial trauma within the last 3 months [] Recent intracranial or spinal surgery [] Possible aortic dissection Consult Neurocritical Care on-call attending before initiating thrombolysis if: [] Ischemic stroke within 3 months [x] Recent intracranial hemorrhage [] Structural cerebrovascular lesion or intracranial neoplasm considerations: [] Patient is , tenecteplase is contraindicated Assessment/Recommendation: Low Risk PE Anticoagulation Recommendations: Eliquis 10mg BID x 7 days followed by 5mg BID, however patient with recent SDH. Trauma services hasdiscussed the case with Neuro CC and NSGY, and have started patient on a heparin drip with no bolus. Care Plan Recommendations: LOW RISK PE: Hestia score 1+ Disposition Recommendations: -Admit to inpatient/observation -Pulmonology consult Admitted to T2ICU. PE protocol orders placed by PERT [x] Serial troponin q4h x 3 [x] STAT BNP and again in AM [x] Formal 2D Echo [] Lower extremity duplex -- symptomatic DVT only [] Interventional Cardiology consult [x] Pulmonary consult [] PE Clinic Referral -- follow-up appointment on AVS This consultation was completed remotely. The above information is based on the HPI and informationprovided by the primary service. Recommendations for PE treatment reflect this information and final treatment decisions and disposition are deferred to the clinical judgment of the primary service. [facility] [id number] Note* Care Coordination - TAYLOR Clemons CNP - 07/06/2024 11:04 PM EDT Images from the original note were not included. PE Response Team Triage Brief HPI: This is a 74 y.o M with a PMH of HTN, HLD and DM who was recently treated at [facility] from 06/26 to 06/27 for right SDH, Multiple right rib fractures, and right distal clavicle fracture. Patient presented back to [place] ED with syncopal episode. He was tachycardic and tachypneic and hypoxic [id number] NC. Pert team activated by Dr. Stovall who reported that OSH lab work revealed no elevation in troponin and CTA chest showed b/l segmental lower lobe and right upper lobe, but no heart strain. Patient transferred to [facility] for further care. Hemodynamic instability: No Notable vital signs: None noted RV Strain: No Troponin >0.120: No No results found for: TROPONINI Risk Factors Yes [] Saddle embolism or occlusive main PA emboli [] High flow oxygen need or respiratory distress [x] Syncope [] Altered mental status (disorientation, lethargy, stupor, coma) Notable Comorbidities No [] Cancer (previous or active) [] Heart failure [] Chronic lung disease [] Concomitant DVT [] Recurrent VTE [] VTE already on anticoagulation Contraindication to Anticoagulation (AC) Contraindication to Thrombolytics Yes Yes [] Active, clinically significant bleeding [] Severe uncontrolled hypertension [] Anticipated or recent neuraxial anesthesia [] Invasive procedure or OB delivery Consult Neurocritical Care on-call attending before initiating anticoagulation if: [] Ischemic stroke within 3 months [x] Recent intracranial hemorrhage [] Structural cerebrovascular lesion or intracranial neoplasm Relative contraindications for anticoagulation -- if any of the below, consult on-call Trauma attending prior to initiating anticoagulation: [] Traumatic brain injury, including head trauma with facial fractures and negative head CT [] Spinal fractures and/or spinal cord injury [] Solid organ injuries [] Trauma-induced coagulopathy [x] Geriatric trauma [] Hemothorax [] Cardiac injuries [] Pelvic fracture(s) [] Multiple extremity fractures [] Active bleeding (excluding menses) [] Severe uncontrolled hypertension [] Significant head injury or facial trauma within the last 3 months [] Recent intracranial or spinal surgery [] Possible aortic dissection Consult Neurocritical Care on-call attending before initiating thrombolysis if: [] Ischemic stroke within 3 months [x] Recent intracranial hemorrhage [] Structural cerebrovascular lesion or intracranial neoplasm considerations: [] Patient is , tenecteplase is contraindicated Assessment/Recommendation: Low Risk PE Anticoagulation Recommendations: Eliquis 10mg BID x 7 days followed by 5mg BID, however patient with recent SDH. Trauma services hasdiscussed the case with Neuro CC and NSGY, and have started patient on a heparin drip with no bolus. Care Plan Recommendations: LOW RISK PE: Hestia score 1+ Disposition Recommendations: -Admit to inpatient/observation -Pulmonology consult Admitted to T2ICU. PE protocol orders placed by PERT [x] Serial troponin q4h x 3 [x] STAT BNP and again in AM [x] Formal 2D Echo [] Lower extremity duplex -- symptomatic DVT only [] Interventional Cardiology consult [x] Pulmonary consult [] PE Clinic Referral -- follow-up appointment on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 3rd rib fx, subsequent encounter -Right occipital scalp hematoma -Acute R clavicle fx, subsequent encounter -Scalp laceration s/p removal of sutures Incidental: Large 2.5 cm gallstone -cholelithiasis Small left inguinal hernia containing fat Prostatic enlargement 24h: PERT team consulted NCC and NSG consulted - start heparin gtt no bolus 3L NC, tachycardia, tachypnea OSH removed previous sutures in his scalp Neurological system NSG/NCC consult - repeat CTH in the morning - neurochecks Acute pain - Multimodal pain control - Delirium precautions Syncope - likely secondary to PE/SOB/hypoxia Circulatory system # Hypertension, hyperlipidemia - hold ASA - home valsartan 160 mg twice daily - Farxiga 10 mg daily - SBP 100-160 - PRN anti-htn med Respiratory system Acute pulmonary embolism segmental PE - Appreciate PERT team recs - on heparin gtt no bolus - O2 protocol Right rib fractures - pain control - Aggressive pulmonary hygiene Gastrointestinal system - DM diet - Bowel regimen Renal function - Strict I/Os BPH - home flomax Immunologic system - Monitor for fevers Leukocytosis likely reactive - trend - Mupirocin for empiric MRSA decolonization x5 days Hematologic system - Monitor hemoglobin Endocrine system - Monitor glucose #DM - Hold home Trulicity, metformin, glimepiride - ISS, q4h glucose checks Integumentary system (GI and cutaneous) - Skin checks Scalp laceration - petroleum jelly Musculoskeletal system - PTOT #R clavicle fracture - NWB - sling for comfort -Orthopedic consultation Ppx - on Heparin gtt - pepcid Critical Care time spent 70 min. The time involved in the performance of this care was exclusive ofseparately billable procedures, teaching time and treating other patients. The time was spent personally by the attending physician for the following activities: examination of the patient, ordering and/or performing treatment, reviewing the laboratory and radiographic studies, and if applicable, ventilator management and blood gas interpretation. Critical Care was necessary because of an illness or injury that actively impaired one or more vital organ systems such that there was a high probability of imminent life treatening deterioration in the patient's condition. The following organ systems are involved: Neurologic, Respiratory Level of Medical Decision Making: risk of morbidity from additional diagnostic testing or treatmentdue to PE and recent TBI [x]High []Moderate Complexity: Acute or chronic illness posing a threat to life (HIGH) Risk: Requires close neuro-critical care monitoring due to risk of neurological deterioration (HIGH) Personally Reviewed/Independently interpreted patient's: [x]Epic notes [x]Radiology studies [x]Labs []EKG []Ordering tests []Other Discussed/ With: [x]Patient/Family [x]RN [x]Consultants []SW/TCC []Other Diana Stovall MD Division of Trauma Department of Surgery [facility] ~~~~~~~~~~~~~~~~~~~~~~~~~~~~~~~~~~~~~~~~~~~~~~~~~~~~~~~~~~~~~~~~~~~~~~~ This note may have been dictated using [employer] Practice Edition 2.6 and/or [employer] Voice Recognition Feature. The document was proofread; however, unrecognized voice recognition staff nurse icu resource team errors may be present. documented in this [facility]10-29-2024 History of Present illness Narrative* Godfrey Myers MD - 07/03/2024 10:15 AM EDT NEUROSURGERY and SPINE FOLLOW-UP NOTE Patient Name: Avery Vasquez Patient : 1950 PCP: Aidan Argueta MD History of Present Illness: 74 y/o M who presents for follow up after being struck by a cow, found to have multifocal IPH/SAH and other injuries. He reports today that he is doing well. Mild headache but otherwise no complaint. No changes to strength, sensation or vision. His scalp laceration was suture by the OSH ED team andappears to be healing well. No swelling, drainage or erythema. Past Medical History: History reviewed. No pertinent past medical history. Past Surgical History: History reviewed. No pertinent surgical history. Home Medications: Prior to Admission medications Medication Sig Start Date End Date Taking? Authorizing Provider atorvastatin (Lipitor) 10 MG tablet Take 10 mg by mouth Nightly. Yes Historical Provider, bacitracin 500 UNIT/GM ointment Apply topically 3 times daily. 06/27/24 Yes Price Monae MD Calcium Carbonate-Vit D-Min (Calcium 600+D3 Plus Minerals) 600-800 MG-UNIT tablet Take 1 tablet by mouth daily. Yes Historical Provider, dapagliflozin (Farxiga) 10 MG tablet Take 10 mg by mouth daily. Yes Historical Provider, dulaglutide (Trulicity) 0.75 MG/0.5ML Inject 0.75 mg under the skin 1 (one) time per week. Yes Historical Provider, glimepiride (Amaryl) 1 MG tablet Take 1 mg by mouth daily (with breakfast). Yes Historical Provider, levETIRAcetam (Keppra) 500 MG tablet Take 1 tablet (500 mg) by mouth 2 times daily for 12 doses. 06/27/24 07/03/24 Yes Price Monae MD metFORMIN (Glucophage) 500 MG tablet Take 500 mg by mouth in the morning and 500 mg in the evening.Take with meals. Yes Historical Provider, Multiple Vitamins-Minerals (MULTIVITAMIN ADULT, MINERALS, PO) Take 1 tablet by mouth daily. Yes Historical Provider, tamsulosin (Flomax) 0.4 MG 24 hr capsule Take 0.4 mg by mouth Nightly. Yes Historical Provider, valsartan (Diovan) 160 MG tablet Take 160 mg by mouth 2 times daily. Yes Historical Provider, Lidocaine 4 % patch Place 1 patch on the skin daily. Patient not taking: Reported on 07/03/2024 06/28/24 07/28/24 Price Monae MD oxyCODONE (Roxicodone) 5 MG immediate release tablet Take 1 tablet (5 mg) by mouth in the morning and 1 tablet (5 mg) in the evening. Do all this for 3 days. 06/27/24 06/30/24 Price Monae MD aspirin 81 MG EC tablet Take 81 mg by mouth daily. 06/27/24 Historical Provider, Allergies: Bactrim [sulfamethoxazole-trimethoprim], Hydrocodone-acetaminophen, Lisinopril, and Tramadol Social History: TOBACCO: reports that he has never smoked. He has never used smokeless tobacco. ETOH: reports current alcohol use. RECREATIONAL DRUG USE: Social History Substance and Sexual Activity Drug Use Never Family History: No family history on file. Review of Systems: Review of Systems 12-point ROS completed and negative unless otherwise documented. Physical Examination: Vitals: 07/03/24 1023 BP: 136/88 Pulse: 79 Physical Exam Awake, alert, oriented x3 PERRL, TM, FS RUE (pain limited/full strength) LUE 5/5 BLE 5/5 SILT Right scalp laceration, stitches in place, healing well Results Labs: Last 24hrs No results found for this or any previous visit (from the past 24 hours). Radiology Personal review: No new imaging for review. We reviewed and discussed his most recent CT brain which was obtain inpatient and confirmed stability in his small IPH/SAH. 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 Neurologically he is doing well and remains at his neuro baseline. Plan to obtain CT brain at 2 weeks for further review, anticipate continued resolution/stability. Otherwise, he can follow up with our team on PRN basis. Godfrey Myers MD [facility] Neurosurgery I have spent 20 minutes reviewing previous notes, test results, and face to face with the patient discussing the diagnosis and importance of compliance with the treatment plan, as well as documentingon the day of the visit. documented in this [facility]10-28-2024 Telephone encounter Note* Telephone Encounter - Jada Johnson - 07/02/2024 11:58 AM EDT Spoke with patient, had his neck and head CT last week on 06/27. Scheduled a follow up for [id number] [place] [id number] Miscellaneous Notes* Telephone Encounter - Jada Johnson - 07/02/2024 11:58 AM EDT Spoke with patient, had his neck and head CT last week on 06/27. Scheduled a follow up for [id number]/29 * Telephone Encounter - Jen Banda - 07/02/2024 8:56 AM EDT Name of Caller: Avery Contact Reason for Appointment: Patient states that he received a text message on Tuesday or Tuesday offering a sooner appointment than 07/13/24 and he would like to know if it is still available. Please call and advise. Office Name: Neurosurgery documented in this [facility]10-28-2024 Telephone encounter Note* Telephone Encounter - Jen Banda - 07/02/2024 8:56 AM EDT Name of Caller: Avery Contact Reason for Appointment: Patient states that he received a text message on Tuesday or Tuesday offering a sooner appointment than 07/13/24 and he would like to know if it is still available. Please call and advise. [id number] Nurse Note* Ming Das RN - 06/27/2024 2:03 PM EDT Discharge instructions provided to patient and family. Patient to follow up with PCP, Neuro, and Ortho as scheduled. Prescriptions called to patient preferred pharmacy by provider. Scripts discussed with patient and family, neither voiced questions. Denies concerns at time of discharge. Ambulatory with assistance, wheeled to exit and assisted in to vehicle. Left in stable condition with all belongings and discharge paperwork. [id number] Nurse Note* Ming Das RN - 06/27/2024 2:03 PM EDT Discharge instructions provided to patient and family. Patient to follow up with PCP, Neuro, and Ortho as scheduled. Prescriptions called to patient preferred pharmacy by provider. Scripts discussed with patient and family, neither voiced questions. Denies concerns at time of discharge. Ambulatory with assistance, wheeled to exit and assisted in to vehicle. Left in stable condition with all belongings and discharge paperwork. documented in this [facility]10-23-2024 Miscellaneous Notes* Care Coordination - Unknown Case Management - 06/27/2024 1:50 PM EDT Patient Choice Patient Name: AVERY VASQUEZ Date of : 1950 All Providers Sent Referral Name: [facility] Phone: [phone] Address: [address] [place], [place] [id number] * Home Care - Stefan Flores RN - 06/27/2024 1:50 PM EDT Spoke with PCP's office. Dr. Argueta will not follow patient until he follows up at his office after this hospitalizaiton. Spoke with trauma team, Dr. Monae, who is agreeable to follow for home care orders until the patient can follow up with his PCP and they can then take over as following physician. Updated Nisa with PCP's office of trauma following until the patient is seen in office and then they will continue to follow for home care orders. She states she understands. * Home Care - Stefan Flores RN - 06/27/2024 11:53 AM EDT Start PACC Note Home Health Referral Educated patient on Home Care and services available. Patient offered choice of available HHC and agreeable to SN/PT services with [facility]. Care Types: None Isolation Precautions: No active isolations Social Determinates of Health: Tobacco Use: Medium Risk (04/02/2022) Received from [facility] Patient History Smoking Tobacco Use: Former Smokeless Tobacco Use: Never Passive Exposure: Not on file Social History Substance and Sexual Activity Alcohol Use Not on file Social History Substance and Sexual Activity Drug Use Not on file Does the patient have any financial resource strain? No Does the patient have any food insecurities? No Does the patient have any housing instabilities? No If any of the above is noted as yes - consider a WEB PAGE DESIGNER evaluation once the patient returns home. START PATIENT REGISTRATION INFORMATION Order Information Order Signing Physician: Alonso Marin MD Service Ordered RN ?: Yes Service Ordered PT ?: Yes Service Ordered OT ?: No Service Ordered ST ?: No Service Ordered WEB PAGE DESIGNER?:No Service Ordered SEPTIC TECHNICIAN?: No Following Physician: Dr. Price Monae Following Physician Overseeing Physician: Dr. Biswas (Required for Residents only) Agreeable to Follow? Yes Date/Time of Call 06/27/24 11:53 AM, Spoke with: Confirmed with Dr. Monae that Trauma team will follow until patient follows up with his PCP. PCP would not sign until patient was seen in office after hospitalization. Then PCP will sign after seeing patient. Care Coordination Same Day SOC?: No Primary Care Physician: Aidan Argueta MD Primary Care Physician Primary Care Physician [address]: [address] [place] [phone] Visit Instructions: N/A Service Discharge Location Type: Home with Home Care Service Facility Name: N/A Service Floor Facility: N/A Service Room No: N/A Demographics Patient Last Name: Mars Patient First Name: Avery Language/Communication Barrier: none Service Address: [address] [place] [address] Service City: [facility] ST: [place] Service ZIP: [address] Service (home) Other phone numbers: No relevant phone numbers on file. Emergency Contact: Extended Emergency Contact Information Primary Emergency Contact: Margarita Vasquez Mobile Relation: Spouse Preferred language: Niuean Secondary Emergency Contact: Sania Clayton Mobile Relation: Sister Grinding Room Inspector needed? No Admission Information Admit Date: 06/26/2024 Patient status at discharge: Inpatient Admitting Diagnosis: Intracranial bleeding (HCC) [I62.9] Caregiver Information Caregiver First Name: ulisses Caregiver Last Name: ulisses Caregiver Relationship to Patient na Caregiver Phone Number: na Caregiver Notes: N/A [place] List HIGHLeetchi: Smalldeals TECH - NEXT DAY REQUEST Requests Next Available SOC/SHARAN END PATIENT REGISTRATION INFORMATION Pt Home Health goal Return home and prevent readmission. COVID Status 1. Do you have any upper respiratory symptoms (cough, SOB, Fever)? No 2. Have you been exposed to anyone with COVID-19 Virus? No Answer only if pending or positive for COVID-19? 1. Agreeable to wear PPE at each visit? No 2. Is the hospital supplying them with PPE upon Discharge? No Start PACC Summary General Report/ Additional Comments 74 y.o. male status post bovine assault. The incident happened around 9 AM on 06/26/24. 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 When he went over to evaluate the He got up and came at him. Discharge Date: pending Referral Source-PACC: (Hospital/Unit): [facility] / / A End PACC Note * Home Care - Stefan Flores RN - 06/27/2024 11:49 AM EDT Fabric Cutter following case for Discharge Needs. * Care Coordination - Tessa Beck RN - 06/27/2024 11:40 AM EDT Care Managment Initial Assessment Date: 06/27/2024 Patient Name: Avery Vasquez : 1950 Patient Information Source of Information: Patient Cognition/Language: WFL - Within Functional Limits Permission given to speak with patient kiosk sales representative/caregiver as indicated: No Confirmation of Payer with patient/family: Yes Payer Name: Medicare [place]: No Confirmation of Primary Care Physician: Confirmed PCP Name: Aidan Argueta MD Seen in last 2 years?: Yes Primary Caregiver: Self If assistance needed, confirmed caregiver ready, willing and able to care for patient at discharge:Yes Confirmed with: Avery Living Arrangements Current Residence: House Number of Floors 2 Number of Entry Steps: 3 Bed/Bath Levels: Both second floor Facility: Facility Name: Plan to Return: Lives with: Spouse/significant other Support Systems: Spouse/significant other Activities of Daily Living Ambulation: Independent Bathing/Dressing: Independent Elimination/Continence/Toileting: Independent Feeding: Independent Who Assists with Activities of Daily Living: Instrumental Activities of Daily Living Prescription Coverage: Yes Pharmacy Used: [facility] [place] Medication Management: Independent Transportation/Shopping: Independent Transportation Mode: Car Needs Assistance with Transportation at Discharge: No Meal Preparation: Independent Laundry/Cleaning: Independent Finances/Bill Paying: Independent Communication: Independent Types of Care Services/Equipment Utilized Care Services: Dialysis Type: Durable Medical Equipment: Patient's Goal/Discharge Plan Patient expects to be discharged to: home Discharge Planning Actions: Continue to follow Patient's Choice Rights and [employer] and Collaborative Relationships Disclosed as Indicated for Post-Acute Care: Interdisciplinary Team Engagement: Geriatric Assessment, PT/OT Social Work Referral for: Additional Information: Pt admitted s/p cow attack with SAH and right clavicle FX. Introduced myself and role. Pt lives with and is independent. can provide assistance and sister will provide transportation. PT isrecommending home with home PT, HCL notified. documented [facility] Note* Care Coordination - Unknown Case Management - 06/27/2024 1:50 PM EDT Patient Choice Patient Name: AVERY VASQUEZ Date of : 1950 All Providers Sent Referral Name: [facility] Phone: [phone] Address: [address] [place], [place] [id number] [facility] [id number] Note* Home Care - Stefan Flores RN - 06/27/2024 1:50 PM EDT Spoke with PCP's office. Dr. Argueta will not follow patient until he follows up at his office after [facility] Spoke with trauma team, Dr. Monae, who is agreeable to follow for home care orders until the patient can follow up with his PCP and they can then take over as following physician. Updated Nisa with PCP's office of trauma following until the patient is seen in office and then they will continue to follow for home care orders. She states she understands. [employer] [id number] Note* Care Coordination - Unknown Case Management - 06/27/2024 1:50 PM EDT Patient Choice Patient Name: AVERY VASQUEZ Date of : 1950 All Providers Sent Referral Name: [facility] Phone: [phone] Address: [address] [place] [address] [id number] Note* Home Care - Stefan Flores RN - 06/27/2024 1:50 PM EDT Spoke with PCP's office. Dr. Argueta will not follow patient until he follows up at his office [facility] Spoke with trauma team, Dr. Monae, who is agreeable to follow for home care orders until the patient can follow up with his PCP and they can then take over as following physician. Updated Nisa with PCP's office of trauma following until the patient is seen in office and then they will continue to follow for home care orders. She states she understands. [facility] [id number] History of Present illness Narrative* Roxanne Rees RD - 06/27/2024 1:30 PM EDT Nutrition Assessment Type and Reason for Visit: Initial Nutrition Recommendations/Plan: Continue with Regular diet. Sign off to photocopier technician. Malnutrition Assessment: Malnutrition Status: No malnutrition Context: Acute Illness Nutrition Assessment: Pt is a 74-year-old male with PMH significant for DM, HTN, dyslipidemia who presents s/p bovine assault. 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 Posterior head lac - repaired at OSH with nylon suture, remove in 10-14 days. He is on a regular diet. RD visited pt; he endorsed [place], monitors CHO at home. Estimated Daily Nutrient Needs: Energy Requirements Based On: Kcal/kg Weight Used for Energy Requirements: [place] Weight for Energy Calculation (kg): 70 kg Total Energy Requirements (kcals/day): 25-30 kcals/kg = 9016-6481 kcals/day Weight Used for Protein Requirements: [place] Weight in Kg Used for Protein Requirements: 70 kg Estimated Total Protein (g/day): 1.2-1.4g protein/kg IBW = 84-98g protein/day Estimated Daily Total Fluid (ml/day): 1750 mls Nutrition Related Findings: Hypoactive Bs, abd soft, rounded NT. Last BM 06/26/24. Wound Type: Surgical Incision (head lac - saturated) Net IO Since Admission: 651.16 mL [06/27/24 1332] Current Nutrition Therapies: Adult diet Regular Current Oral Intake Average Meal Intake: 76-100% Average Supplements Intake: None Ordered Anthropometric Measures: Height: 172.7 cm (5' 7.99) Current Body Weight: 105 kg (231 lb 7.7 oz) (06/27/24) Weight Source: Bed Scale [place] Body Weight (lbs) (Calculated): 154 lbs [place] Body Weight (Kg) (Calculated): 70 kg % [place] Body Weight (Calculated): 150.3 % BMI (kg/m2) (Calculated): 35.2 BMI Categories: Obese Class 2 (BMI 35.0 -39.9) Wt Readings from Last 10 Encounters: 06/27/24 105 kg (231 lb 4.2 oz) LABS: Recent Labs 06/26/24 1536 06/27/24 0036 NA 136 136 K 4.9 4.2 CL 109* 108* CO2 19* 19* BUN 21* 22* CREATININE 0.77 0.90 GLUCOSE 148* 114* CALCIUM 10.6* 9.7 Nutrition Diagnosis: No nutrition diagnosis at this time related to as evidenced by Discharge Planning: Too soon to determine Roxanne Rees RD,LD,[facility] Contact: *[phone] or Late [employer] [employer] Chat * Candi Bal, PT - 06/27/2024 11:37 AM EDT Images from the original note were not included. PHYSICAL THERAPY [facility] Initial Evaluation Name/MRN: Avery Vasquez ([id number]) Evaluation Date: 06/27/2024 Date of : 1950 Admission Date: 06/26/2024 1:00 PM Age: 74 y.o. Room/Bed: T2-/T2 A Discharge Recommendation: Home with assist PRN, Home with Home health PT Equipment Needed: No Assessment IMPRESSION: Pt presents s/p knocked over by a cow with resulting head trauma and Rt clavicle fx. Ptstable, clavicle fx non-op/sling for comfort/NWB RUE/ok for ROM. Pt supervision level of transfers & ambulation, required assist with bed mobility Admitting Diagnosis: intercranial bleed Prognosis: good Performance Deficits /Impairments: Decreased Functional Mobility and Decreased ROM Decision Making: Medium Complexity Subjective Pt awake in bed, pleasant & agreeable to PT. Pain: RN managing pain. Past Medical History: No past medical history on file. Past Surgical History: No past surgical history on file. Admission Diagnosis: Patient Active Problem List Diagnosis Date Noted Intracranial bleeding (HCC) 06/26/2024 Medical Precautions: No active isolations Proper PPE donned/doffed in accordance with facility standards. 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 Prior Level of Function Prior Level of ADL Function: Independent Prior Level of Mobility: Independent; Device: None Prior Level of Transfers: Independent Objective Lower Extremity Assessment AROM: Exceptions: grossly WFL, noted decr TKE bilat from previous TKAs PROM: WFL Strength: Exceptions: functionally 4/5 BLE Sensation: Not assessed this session Balance: good standing balance-demo 360 turn in less than 4 sec Bed Mobility: Supine to sit: Min Assist Scooting: Supervision Transfers Sit to stand: Supervision Stand to sit: Modified Independent Ambulation Ambulation 1 Assistive device(s) used: None Assist level: SBA Distance (ft): 120 x2 Quality of gait: reciprocal stepping, wide ALEXA, slow josh, postural sway Outcome Measures AM-PAC How much HELP from another person do you currently need Turning from your back to your side while in a flat bed without using bedrails?: None Moving from lying on your back to sitting on the side of a flat bed without using bedrails?: A Little Moving to and from a bed to a chair (including a wheelchair)?: None Standing up from a chair using your arms (wheelchair or bedside chair)?: None Walking in a hospital room?: None Stair climbing assessed?: No AM-PAC Inpatient Mobility Raw Score (No Stairs) : 19 [facility] Score: Walked 25 ft or more (i.e. walked outside of room) Plan Pt would benefit from skilled acute PT services to address Strengthening, Gait Training, FunctionalMobility Training, and Stair Training. Frequency: 8 visits during current hospital admission or until additional recommendations are made Barriers: Pain Safety/Education Safety Safety Devices in place: All fall risk precautions in place, call light within reach, left in chair, gait belt, patient at risk for falls, nurse notified, and no alarms engaged upon entry Restraints: N/A Education Education Given To: patient Education Provided: PT Role, Home Exercise Program, Discharge Recommendations, and ROM RUE as tolerated, IS use (pt demo to 2500ml x 3 reps) Education Method: Verbal and Demonstration Barriers to Learning: Education Outcome: Goals Patient Stated Goal: To go home Encounter Problems Encounter Problems (Active) Mobility Patient will ambulate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 [employer] SECURE CHAT. APS does not utilize pagers. 06/27/2024 BLOCK COMMUNICATION NOTE Patient/N Avery Vasquez [id number] Room T205 Block requested Rib Block: right anterior second and third rib fractures. Platelets Lab Results Component Value Date PLT 229 06/27/2024 PLT 276 06/26/2024 Block will not produce analgesia due to location of rib fractures. APS will sign off, thank you NG: The Acute Pain Service providers are available exclusively via [employer]. APS does not utilize pagers. Cosigned by Rangel Anderson MD at 06/27/2024 12:49 PM EDT [employer] Phone: [phone] 428-819710-23-2024 Consult note* TAYLOR Arguelles CNP - 06/27/2024 10:23 AM EDTAssociated Order(s): IP CONSULT TO ANESTHESIOLOGY - ACUTE PAIN SERVICE PAGING: The Acute Pain Service providers are available exclusively via [employer]. APS does not utilize pagers. 06/27/2024 BLOCK COMMUNICATION NOTE Patient/MRN Avery Vasquez [id number] Room T205 Block requested Rib Block: right anterior second and third rib fractures. Platelets Lab Results Component Value Date PLT 229 06/27/2024 PLT 276 06/26/2024 Block will not produce analgesia due to location of rib fractures. APS will sign off, thank you NG: The Acute Pain Service providers are available exclusively via [employer]. APS does not utilize pagers. Cosigned by Rangel Anderson MD at 06/27/2024 12:49 PM EDT * Shaggy Saucedo PA-C - 06/27/2024 9:46 AM EDT NEUROSURGERY CONSULT NOTE Patient Name: Avery Vasquez Patient : 1950 PCP: Aidan Argueta MD Chief Complaint: struck by a cow History of Present Illness: 74 y.o. presents from an outside hospital after being struck by a cow. 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 He lost consciousness. He takes a baby aspirin at home. His current complaints include some mild headache and right clavicle pain. He states he wants to be discharged soon so he can take care of his who has Alzheimer's. Past Medical History: No past medical history on file. Past Surgical History: No past surgical history on file. Home Medications: Prior to Admission medications Medication Sig Start Date End Date Taking? Authorizing Provider aspirin 81 MG EC tablet Take 81 mg by mouth daily. Historical Provider, atorvastatin (Lipitor) 10 MG tablet Take 10 mg by mouth Nightly. Historical Provider, Calcium Carbonate-Vit D-Min (Calcium 600+D3 Plus Minerals) 600-800 MG-UNIT tablet Take 1 tablet by mouth daily. Historical Provider, dapagliflozin (Farxiga) 10 MG tablet Take 10 mg by mouth daily. Historical Provider, dulaglutide (Trulicity) 0.75 MG/0.5ML Inject 0.75 mg under the skin 1 (one) time per week. Historical Provider, glimepiride (Amaryl) 1 MG tablet Take 1 mg by mouth daily (with breakfast). Historical Provider, metFORMIN (Glucophage) 500 MG tablet Take 500 mg by mouth in the morning and 500 mg in the evening.Take with meals. Historical Provider, Multiple Vitamins-Minerals (MULTIVITAMIN ADULT, MINERALS, PO) Take 1 tablet by mouth daily. Historical Provider, tamsulosin (Flomax) 0.4 MG 24 hr capsule Take 0.4 mg by mouth Nightly. Historical Provider, valsartan (Diovan) 160 MG tablet Take 160 mg by mouth 2 times daily. Historical Provider, Allergies: Bactrim [sulfamethoxazole-trimethoprim], Hydrocodone-acetaminophen, Lisinopril, and Tramadol Social History: TOBACCO: has no history on file for tobacco use. ETOH: has no history on file for alcohol use. RECREATIONAL DRUG USE: Social History Substance and Sexual Activity Drug Use Not on file Family History: No family history on file. Review of Systems: Review of Systems Positive for headache and right shoulder/clavicle pain Physical Examination: Vitals: 06/27/24 0900 BP: 114/84 Pulse: 69 Resp: (!) 11 Temp: SpO2: 100% Physical Exam Neurological Exam Awake, alert and oriented x3 5/5 BUE 5/5 BLE Sensation intact to light touch Pupils equal Speech normal Results Labs: Last 24hrs Recent Results (from the past 24 hours) CBC auto differential Collection Time: 06/26/24 3:36 PM Result Value Ref Range Auto WBC 15.8 (H) 3.6 - 10.7 10*3/uL RBC 4.50 4.40 - 5.90 10*6/uL Hemoglobin 13.1 13.0 - 18.0 g/dL Hematocrit 40.2 40.0 - 52.0 % MCV 89.3 77.0 - 99.0 fL MCH 29.1 26.0 - 34.0 pg MCHC 32.6 30.5 - 36.0 % RDW 14.3 11.5 - 15.0 % Platelets 276 140 - 440 10*3/uL MPV 9.7 9.0 - 12.7 fL nRBC 0.0 0.0 - 2.0 /100 WBCs Neutrophils Relative 90.1 (H) 38.0 - 82.0 % Lymphocytes Relative 4.7 (L) 15.0 - 45.0 % Monocytes Relative 4.7 (L) 5.0 - 13.0 % Eosinophils Relative 0.0 0.0 - 6.0 % Basophils Relative 0.2 0.0 - 2.0 % Immature Grans % 0.3 0.0 - 2.0 % Neutrophils Absolute 14.2 (H) 1.8 - 7.5 10*3/uL Lymphocytes Absolute 0.8 (L) 1.0 - 4.3 10*3/uL Monocytes Absolute 0.7 0.0 - 0.9 10*3/uL Eosinophils Absolute 0.0 0.0 - 0.5 10*3/uL Basophils Absolute 0.0 0.0 - 0.2 10*3/uL Immature Grans Absolute 0.1 (H) <0.1 10*3/uL Basic metabolic panel Collection Time: 06/26/24 3:36 PM Result Value Ref Range SODIUM 136 135 - 145 mmol/L POTASSIUM 4.9 3.5 - 5.1 mmol/L CHLORIDE 109 (H) 98 - 107 mmol/L CARBON DIOXIDE 19 (L) 22 - 30 mmol/L UREA NITROGEN 21 (H) 9 - 20 mg/dL CREATININE 0.77 0.66 - 1.25 mg/dL GLUCOSE 148 (H) 70 - 100 mg/dL CALCIUM 10.6 (H) 8.4 - 10.4 mg/dL ANION GAP 8 3 - 13 mmol/L eGFR >90.0 >60.0 mL/min/1.73m*2 POCT glucose meter Collection Time: 06/26/24 5:10 PM Result Value Ref Range Glucose 161 (H) 70 - 100 mg/dL POCT glucose meter Collection Time: 06/26/24 8:40 PM Result Value Ref Range Glucose 180 (H) 70 - 100 mg/dL CBC auto differential Collection Time: 06/27/24 12:36 AM Result Value Ref Range Auto WBC 10.4 3.6 - 10.7 10*3/uL RBC 3.90 (L) 4.40 - 5.90 10*6/uL Hemoglobin 11.5 (L) 13.0 - 18.0 g/dL Hematocrit 34.8 (L) 40.0 - 52.0 % MCV 89.2 77.0 - 99.0 fL MCH 29.5 26.0 - 34.0 pg MCHC 33.0 30.5 - 36.0 % RDW 14.6 11.5 - 15.0 % Platelets 229 140 - 440 10*3/uL MPV 9.7 9.0 - 12.7 fL nRBC 0.0 0.0 - 2.0 /100 WBCs Neutrophils Relative 74.0 38.0 - 82.0 % Lymphocytes Relative 14.2 (L) 15.0 - 45.0 % Monocytes Relative 11.0 5.0 - 13.0 % Eosinophils Relative 0.3 0.0 - 6.0 % Basophils Relative 0.2 0.0 - 2.0 % Immature Grans % 0.3 0.0 - 2.0 % Neutrophils Absolute 7.7 (H) 1.8 - 7.5 10*3/uL Lymphocytes Absolute 1.5 1.0 - 4.3 10*3/uL Monocytes Absolute 1.2 (H) 0.0 - 0.9 10*3/uL Eosinophils Absolute 0.0 0.0 - 0.5 10*3/uL Basophils Absolute 0.0 0.0 - 0.2 10*3/uL Immature Grans Absolute 0.0 <0.1 10*3/uL Basic metabolic panel Collection Time: 06/27/24 12:36 AM Result Value Ref Range SODIUM 136 135 - 145 mmol/L POTASSIUM 4.2 3.5 - 5.1 mmol/L CHLORIDE 108 (H) 98 - 107 mmol/L CARBON DIOXIDE 19 (L) 22 - 30 mmol/L UREA NITROGEN 22 (H) 9 - 20 mg/dL CREATININE 0.90 0.66 - 1.25 mg/dL GLUCOSE 114 (H) 70 - 100 mg/dL CALCIUM 9.7 8.4 - 10.4 mg/dL ANION GAP 8 3 - 13 mmol/L eGFR 89.6 >60.0 mL/min/1.73m*2 POCT glucose meter Collection Time: 06/27/24 8:10 AM Result Value Ref Range Glucose 164 (H) 70 - 100 mg/dL Radiology Personal review: CT head reveals stable right sylvian fissure subarachnoid hemorrhage and right frontotemporal lobe contusions. CTA head and neck with no aneurysm or vascular malformation. ASSESSMENT / PLAN : 74 year old male s/p being struck by a cow He is neurologically intact on exam CT head reveals stable right frontotemporal SAH and hemorrhagic contusions CTA head and neck with no aneurysm or vascular malformation There are no acute neurosurgical indications Recommend Keppra for 7 days Plan for repeat CT head in 2 weeks and follow up with Dr Myers afterwards Hold home ASA until neurosurgery follow up He may be discharged from our standpoint Neurosurgery will sign off, please contact with questions Seen and discussed with Dr Myers I spent 40 minutes of my independent time evaluating the patient, reviewing the medical record, andcounseling/coordinating care regarding SAH. Cosigned by Godfrey Myers MD at 06/27/2024 10:15 AM EDT Associated attestation - Godfrey Myers MD - 06/27/2024 10:15 AM EDT I agree with the history, physical exam and assessment as documented below by Shaggy Saucedo PA-C. Briefly, 74 y/o M who presents after being struck by a cow, found to have multifocal IPH/SAH and other injuries. On my exam, patient awake, alert and oriented. PERRL. FS. Full/symmetrical throughout (RUE limited by pain/sling). SILT. Repeated CT brain reviewed. Overall appears grossly stable compared to prior. No obvious vascular abnormality on CTA. I recommend Keppra 500mg BID x7days for seizure ppx. Please have patient follow up with my team in clinic in 2 weeks of discharge with another CT brain. Hold ASA until that time. Neurosurgery to sign-off, please call with questions. Godfrey Myers MD [facility] Neurosurgery I spent 60 minutes of my time independently reviewing labs, imaging, examining the patient and discussing his care with family members or other providers. * Lida Whitten MD - 06/26/2024 5:59 PM EDTAssociated Order(s): IP CONSULT TO ORTHOPAEDIC SURGERY Images from the original note were not included. Ortho Consult Patient: Avery Vasquez Date of : 1950 Acct: [id number] PCP: Aidan Argueta MD Date of Admission: 06/26/2024 Date of Service: Pt seen/examined on 06/26/2024 Chief Complaint: Right shoulder pain History Of Present Illness: This is a 74 y.o. male who is being evaluated by the orthopedic servicetoday for right shoulder pain. 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 He walked towards the cow and it stood up hitting him in the chest and knocking him backwards. He states that he lost consciousness during this, and when he woke up he had right shoulder pain. He denies any numbness and tingling in his right arm. He denies any pain in his other extremities. He denies alcohol, tobacco, illicit drug use. Patient ambulation status: no difficulty Antiplatelets/Anticoagulation includes: none Hx from chart and/or Pt. Past Medical History: No past medical history on file. Past Surgical History: No past surgical history on file. Home Medications: Prior to Admission medications Medication Sig Start Date End Date Taking? Authorizing Provider aspirin 81 MG EC tablet Take 81 mg by mouth daily. Historical Provider, atorvastatin (Lipitor) 10 MG tablet Take 10 mg by mouth Nightly. Historical Provider, Calcium Carbonate-Vit D-Min (Calcium 600+D3 Plus Minerals) 600-800 MG-UNIT tablet Take 1 tablet by mouth daily. Historical Provider, dapagliflozin (Farxiga) 10 MG tablet Take 10 mg by mouth daily. Historical Provider, dulaglutide (Trulicity) 0.75 MG/0.5ML Inject 0.75 mg under the skin 1 (one) time per week. Historical Provider, glimepiride (Amaryl) 1 MG tablet Take 1 mg by mouth daily (with breakfast). Historical Provider, metFORMIN (Glucophage) 500 MG tablet Take 500 mg by mouth in the morning and 500 mg in the evening.Take with meals. Historical Provider, Multiple Vitamins-Minerals (MULTIVITAMIN ADULT, MINERALS, PO) Take 1 tablet by mouth daily. Historical Provider, tamsulosin (Flomax) 0.4 MG 24 hr capsule Take 0.4 mg by mouth Nightly. Historical Provider, valsartan (Diovan) 160 MG tablet Take 160 mg by mouth 2 times daily. Historical Provider, Current Hospital Medications: Current Facility-Administered Medications: acetaminophen (Tylenol) tablet 1,000 mg, 1,000 mg, Oral, q8h PRN, Serge Razo III, MD atorvastatin (Lipitor) tablet 10 mg, 10 mg, Oral, Nightly, Shy Doran MD bacitracin ointment, , Topical, TID, Shy Doran MD, Given at 06/26/24 1615 dextrose 5 % infusion, 100 mL/hr, IntraVENous, PRN, Shy Doran MD dextrose 50 % solution 12.5 g, 12.5 g, IntraVENous, PRN, Shy Doran MD glucagon (human recombinant) injection 1 mg, 1 mg, IntraMUSCular, PRN, Shy Doran MD glucose oral gel 15 g, 15 g, Oral, PRN, Shy Doran MD hydrALAZINE (Apresoline) injection 10 mg, 10 mg, IntraVENous, q10 min PRN, Serge Razo III, MD Insulin Lispro (Humalog) injection 0-12 Units, 0-12 Units, SubCUTAneous, TID WC, 2 Units at 06/26/24 1715 AND Insulin Lispro (Humalog) injection 0-12 Units, 0-12 Units, SubCUTAneous, Nightly, Shy Doran MD labetalol (Normodyne,Trandate) injection 10 mg, 10 mg, IntraVENous, q10 min PRN, Serge Razo III, MD levETIRAcetam (Keppra) tablet 500 mg, 500 mg, Oral, BID, Shy Doran MD mupirocin (Bactroban) 2 % ointment 1 Application, 1 Application, Nasal, BID, Serge Razo III, MD naloxone (Narcan) injection 0.4 mg, 0.4 mg, IntraVENous, q5 min PRN, Alonso Marin MD ondansetron ODT (Zofran-ODT) disintegrating tablet 4 mg, 4 mg, Oral, q8h PRN OR ondansetron (Zofran) injection 4 mg, 4 mg, IntraVENous, q6h PRN, Serge Razo III, MD, 4 mg at 06/26/24 1607 oxyCODONE (Roxicodone) immediate release tablet 2.5 mg, 2.5 mg, Oral, q4h PRN OR oxyCODONE (Roxicodone) immediate release tablet 5 mg, 5 mg, Oral, q4h PRN, Serge Razo III, MD polyethylene glycol (PEG) 3350 (Miralax) packet 17 g, 17 g, Oral, Daily PRN, Serge Razo III, MD sodium chloride 0.9 % infusion, 75 mL/hr, IntraVENous, Continuous, Serge Razo III, MD, Last Rate: 75 mL/hr at 06/26/24 1536, 75 mL/hr at 06/26/24 1536 sodium chloride 0.9% (NS) flush 30 mL, 30 mL, IntraVENous, q6h, Serge Razo III, MD sodium chloride 0.9% (NS) flush 30 mL, 30 mL, IntraVENous, PRN, Serge Razo III, MD sodium chloride 0.9% (NS) flush 30 mL, 30 mL, IntraVENous, PRN, Serge Razo III, MD tamsulosin (Flomax) 24 hr capsule 0.4 mg, 0.4 mg, Oral, Nightly, Shy Doran MD valsartan (Diovan) tablet 160 mg, 160 mg, Oral, BID, Shy Doran MD Allergies: Bactrim [sulfamethoxazole-trimethoprim], Hydrocodone-acetaminophen, Lisinopril, and Tramadol Social History: Social History Socioeconomic History Marital status: Spouse name: Not on file Number of children: Not on file Years of education: Not on file Highest education level: Not on file Occupational History Not on file Tobacco Use Smoking status: Not on file Smokeless tobacco: Not on file Substance and Sexual Activity Alcohol use: Not on file Drug use: Not on file Sexual activity: Not on file Other Topics Concern Not on file Social History Narrative Not on file Social Drivers of Health Financial Resource Strain: Not on file Food Insecurity: Not on file Transportation Needs: Not on file Physical Activity: Not on file Stress: Not on file Social Connections: Not on file Intimate Partner Violence: Not on file Housing Stability: Not on file Family History: No family history on file. Further Family History is noncontributory to this injury. REVIEW OF SYSTEMS: Review of Systems - General ROS: negative for - chills, fatigue, fever, malaise or night sweats Psychological ROS: negative Ophthalmic ROS: negative ENT ROS: negative for - headaches or sore throat Hematological and Lymphatic ROS: negative for - bleeding problems or blood clots Respiratory ROS: no cough, shortness of breath, or wheezing Cardiovascular ROS: no chest pain or dyspnea on exertion Gastrointestinal ROS: negative Musculoskeletal ROS: See HPI Neurological ROS: negative for - bowel and bladder control changes, gait disturbance or numbness/tingling All other systems reviewed and are negative PHYSICAL EXAM: BP 103/84 Pulse 79 Temp 36.9 C (98.5 F) (Temporal) Resp 24 Ht 1.727 m (5' 8) Wt 103 kg (227 lb 11.8 oz) SpO2 96% BMI 34.63 kg/m GENERAL APPEARANCE: Awake and oriented x3. No acute distress, except appropriate to injury. MOOD AND AFFECT: Calm appropriate to situation GAIT AND STATION: Patient is in bed and able to ambulate if desired COORDINATION and BALANCE: Patient is grossly coordinated Right Upper Extremity: -No obvious pain or deformity to inspection with normal joint range of motion, stability, and muscle strength except noted below -No TTP over humerus, elbow, forearm, wrist, hand, or fingers -TTP: Clavicle and Shoulder -Radial pulse palpable -SILT in radial/median/ ulnar nerve distributions -Motor + AIN/PIN/ulnar nerve functions -No Lymphedema -Skin intact except where noted below -Painless pROM at elbow/wrist There is mild edema present over the right anterior clavicle. There is minimal ecchymosis over the clavicle. There is pain with range of motion at the shoulder, arm more comfortable in sling. There is no evidence of motor weakness in the right upper extremity, or sensory deficits. Left Upper Extremity: -No obvious pain or deformity to inspection with normal joint range of motion, stability, and muscle strength except noted below -No TTP over clavicle, shoulder, humerus, elbow, forearm, wrist, hand, or fingers -TTP: nontender throughout extremity -Radial pulse palpable -SILT in radial/median/ ulnar nerve distributions -Motor + AIN/PIN/ulnar nerve functions -No Lymphedema -Skin intact except where noted below -Painless pROM at shoulder/elbow/wrist Atraumatic Right Lower Extremity: -No obvious pain or deformity to inspection with normal joint range of motion, stability, and muscle strength except noted below -No TTP over pelvis, hip, thigh, knee, tibia, lateral mal, medial mal, calc, midfoot, forefoot -TTP: Nontender throughout extremity -Pulse: DP Palpable -SILT in the superficial peroneal, deep peroneal, tibial, sural, saphenous nerve distributions -Motor function of quad, tibialis anterior, extensor hallucis longus, and gactrocsoleus complex intact -No Lymphedema -Skin intact except where noted below -Painless pROM at hip/knee/ankle Atraumatic Left Lower Extremity: -No obvious pain or deformity to inspection with normal joint range of motion, stability, and muscle strength except noted below -No TTP over pelvis, hip, thigh, knee, tibia, lateral mal, medial mal, calc, midfoot, forefoot -TTP: Nontender throughout extremity -Pulse: DP Palpable -SILT in the superficial peroneal, deep peroneal, tibial, sural, saphenous nerve distributions -Motor function of quad, tibialis anterior, extensor hallucis longus, and gactrocsoleus complex intact -No Lymphedema -Skin intact except where noted below -Painless pROM at hip/knee/ankle Atraumatic Labs: CBC: Lab Results Component Value Date WBC 15.8 (H) 06/26/2024 RBC 4.50 06/26/2024 BMP: Lab Results Component Value Date GLUCOSE 148 (H) 06/26/2024 CO2 19 (L) 06/26/2024 BUN 21 (H) 06/26/2024 CREATININE 0.77 06/26/2024 CALCIUM 10.6 (H) 06/26/2024 PT/INR: No results found for: PT, INR, APTT Type and Screen: No results found for: RH, LABANTI CRP: No results found for: CRP ESR: No results found for: SEDRATE HgBA1c: No components found for: LABA1C The above labs were reviewed by me. Radiology: The below images were independently reviewed and interpreted with pertinent findings noted below. XR: Upright clavicle views: There is a mildly displaced fracture of the distal third of the right clavicle. 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 There is mild acromioclavicular joint degeneration. Radiology reports reviewed. ASSESSMENT: 74 y.o. male right clavicle fracture PLAN: -wD/W Dr. Jimenez -No acute surgical intervention, recommend patient remain in sling for comfort. Will be able to follow-up in clinic next week, or will be re-evaluated next week if still in the hospital. -Nonweightbearing right upper extremity -Activity as tolerated, right shoulder range of motion as tolerated -Ice & elevate -Neurovascular checks -Skin checks -Follow-up outpatient in [address] Stroud -Pain control and medical management per primary team -Orthopaedic surgery will sign off. Please page coconut cooker orthopaedic resident for questions or concerns. Mukund Downs MD Orthopaedic Surgery PGY-1 6:09 PM 06/26/2024 Lida Whitten MD Orthopedic Surgery PGY-2 06/26/2024 at 8:05 PM Cosigned by Andrea Jimenez MD at 06/27/2024 12:27 PM EDT documented in this [facility]10-23-2024 Consult note* Shaggy Saucedo PA-C - 06/27/2024 9:46 AM EDT NEUROSURGERY CONSULT NOTE Patient Name: Avery Vasquez Patient : 1950 PCP: Aidan Argueta MD Chief Complaint: struck by a cow History of Present Illness: 74 y.o. presents from an outside hospital after being struck by a cow. 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 He lost consciousness. He takes a baby aspirin at home. His current complaints include some mild headache and right clavicle pain. He states he wants to be discharged soon so he can take care of his who has Alzheimer's. Past Medical History: No past medical history on file. Past Surgical History: No past surgical history on file. Home Medications: Prior to Admission medications Medication Sig Start Date End Date Taking? Authorizing Provider aspirin 81 MG EC tablet Take 81 mg by mouth daily. Historical Provider, atorvastatin (Lipitor) 10 MG tablet Take 10 mg by mouth Nightly. Historical Provider, Calcium Carbonate-Vit D-Min (Calcium 600+D3 Plus Minerals) 600-800 MG-UNIT tablet Take 1 tablet by mouth daily. Historical Provider, dapagliflozin (Farxiga) 10 MG tablet Take 10 mg by mouth daily. Historical Provider, dulaglutide (Trulicity) 0.75 MG/0.5ML Inject 0.75 mg under the skin 1 (one) time per week. Historical Provider, glimepiride (Amaryl) 1 MG tablet Take 1 mg by mouth daily (with breakfast). Historical Provider, metFORMIN (Glucophage) 500 MG tablet Take 500 mg by mouth in the morning and 500 mg in the evening.Take with meals. Historical Provider, Multiple Vitamins-Minerals (MULTIVITAMIN ADULT, MINERALS, PO) Take 1 tablet by mouth daily. Historical Provider, tamsulosin (Flomax) 0.4 MG 24 hr capsule Take 0.4 mg by mouth Nightly. Historical Provider, valsartan (Diovan) 160 MG tablet Take 160 mg by mouth 2 times daily. Historical Provider, Allergies: Bactrim [sulfamethoxazole-trimethoprim], Hydrocodone-acetaminophen, Lisinopril, and Tramadol Social History: TOBACCO: has no history on file for tobacco use. ETOH: has no history on file for alcohol use. RECREATIONAL DRUG USE: Social History Substance and Sexual Activity Drug Use Not on file Family History: No family history on file. Review of Systems: Review of Systems Positive for headache and right shoulder/clavicle pain Physical Examination: Vitals: 06/27/24 0900 BP: 114/84 Pulse: 69 Resp: (!) 11 Temp: SpO2: 100% Physical Exam Neurological Exam Awake, alert and oriented x3 5/5 BUE 5/5 BLE Sensation intact to light touch Pupils equal Speech normal Results Labs: Last 24hrs Recent Results (from the past 24 hours) CBC auto differential Collection Time: 06/26/24 3:36 PM Result Value Ref Range Auto WBC 15.8 (H) 3.6 - 10.7 10*3/uL RBC 4.50 4.40 - 5.90 10*6/uL Hemoglobin 13.1 13.0 - 18.0 g/dL Hematocrit 40.2 40.0 - 52.0 % MCV 89.3 77.0 - 99.0 fL MCH 29.1 26.0 - 34.0 pg MCHC 32.6 30.5 - 36.0 % RDW 14.3 11.5 - 15.0 % Platelets 276 140 - 440 10*3/uL MPV 9.7 9.0 - 12.7 fL nRBC 0.0 0.0 - 2.0 /100 WBCs Neutrophils Relative 90.1 (H) 38.0 - 82.0 % Lymphocytes Relative 4.7 (L) 15.0 - 45.0 % Monocytes Relative 4.7 (L) 5.0 - 13.0 % Eosinophils Relative 0.0 0.0 - 6.0 % Basophils Relative 0.2 0.0 - 2.0 % Immature Grans % 0.3 0.0 - 2.0 % Neutrophils Absolute 14.2 (H) 1.8 - 7.5 10*3/uL Lymphocytes Absolute 0.8 (L) 1.0 - 4.3 10*3/uL Monocytes Absolute 0.7 0.0 - 0.9 10*3/uL Eosinophils Absolute 0.0 0.0 - 0.5 10*3/uL Basophils Absolute 0.0 0.0 - 0.2 10*3/uL Immature Grans Absolute 0.1 (H) <0.1 10*3/uL Basic metabolic panel Collection Time: 06/26/24 3:36 PM Result Value Ref Range SODIUM 136 135 - 145 mmol/L POTASSIUM 4.9 3.5 - 5.1 mmol/L CHLORIDE 109 (H) 98 - 107 mmol/L CARBON DIOXIDE 19 (L) 22 - 30 mmol/L UREA NITROGEN 21 (H) 9 - 20 mg/dL CREATININE 0.77 0.66 - 1.25 mg/dL GLUCOSE 148 (H) 70 - 100 mg/dL CALCIUM 10.6 (H) 8.4 - 10.4 mg/dL ANION GAP 8 3 - 13 mmol/L eGFR >90.0 >60.0 mL/min/1.73m*2 POCT glucose meter Collection Time: 06/26/24 5:10 PM Result Value Ref Range Glucose 161 (H) 70 - 100 mg/dL POCT glucose meter Collection Time: 06/26/24 8:40 PM Result Value Ref Range Glucose 180 (H) 70 - 100 mg/dL CBC auto differential Collection Time: 06/27/24 12:36 AM Result Value Ref Range Auto WBC 10.4 3.6 - 10.7 10*3/uL RBC 3.90 (L) 4.40 - 5.90 10*6/uL Hemoglobin 11.5 (L) 13.0 - 18.0 g/dL Hematocrit 34.8 (L) 40.0 - 52.0 % MCV 89.2 77.0 - 99.0 fL MCH 29.5 26.0 - 34.0 pg MCHC 33.0 30.5 - 36.0 % RDW 14.6 11.5 - 15.0 % Platelets 229 140 - 440 10*3/uL MPV 9.7 9.0 - 12.7 fL nRBC 0.0 0.0 - 2.0 /100 WBCs Neutrophils Relative 74.0 38.0 - 82.0 % Lymphocytes Relative 14.2 (L) 15.0 - 45.0 % Monocytes Relative 11.0 5.0 - 13.0 % Eosinophils Relative 0.3 0.0 - 6.0 % Basophils Relative 0.2 0.0 - 2.0 % Immature Grans % 0.3 0.0 - 2.0 % Neutrophils Absolute 7.7 (H) 1.8 - 7.5 10*3/uL Lymphocytes Absolute 1.5 1.0 - 4.3 10*3/uL Monocytes Absolute 1.2 (H) 0.0 - 0.9 10*3/uL Eosinophils Absolute 0.0 0.0 - 0.5 10*3/uL Basophils Absolute 0.0 0.0 - 0.2 10*3/uL Immature Grans Absolute 0.0 <0.1 10*3/uL Basic metabolic panel Collection Time: 06/27/24 12:36 AM Result Value Ref Range SODIUM 136 135 - 145 mmol/L POTASSIUM 4.2 3.5 - 5.1 mmol/L CHLORIDE 108 (H) 98 - 107 mmol/L CARBON DIOXIDE 19 (L) 22 - 30 mmol/L UREA NITROGEN 22 (H) 9 - 20 mg/dL CREATININE 0.90 0.66 - 1.25 mg/dL GLUCOSE 114 (H) 70 - 100 mg/dL CALCIUM 9.7 8.4 - 10.4 mg/dL ANION GAP 8 3 - 13 mmol/L eGFR 89.6 >60.0 mL/min/1.73m*2 POCT glucose meter Collection Time: 06/27/24 8:10 AM Result Value Ref Range Glucose 164 (H) 70 - 100 mg/dL Radiology Personal review: CT head reveals stable right sylvian fissure subarachnoid hemorrhage and right frontotemporal lobe contusions. CTA head and neck with no aneurysm or vascular malformation. ASSESSMENT / PLAN : 74 year old male s/p being struck by a cow He is neurologically intact on exam CT head reveals stable right frontotemporal SAH and hemorrhagic contusions CTA head and neck with no aneurysm or vascular malformation There are no acute neurosurgical indications Recommend Keppra for 7 days Plan for repeat CT head in 2 weeks and follow up with Dr Myers afterwards Hold home ASA until neurosurgery follow up He may be discharged from our standpoint Neurosurgery will sign off, please contact with questions Seen and discussed with Dr Myers I spent 40 minutes of my independent time evaluating the patient, reviewing the medical record, andcounseling/coordinating care regarding SAH. Cosigned by Godfrey Myers MD at 06/27/2024 10:15 AM EDT Associated attestation - Godfrey Myers MD - 06/27/2024 10:15 AM EDT I agree with the history, physical exam and assessment as documented below by Shaggy Saucedo PA-C. Briefly, 74 y/o M who presents after being struck by a cow, found to have multifocal IPH/SAH and other injuries. On my exam, patient awake, alert and oriented. PERRL. FS. Full/symmetrical throughout (RUE limited by pain/sling). SILT. Repeated CT brain reviewed. Overall appears grossly stable compared to prior. No obvious vascular abnormality on CTA. I recommend Keppra 500mg BID x7days for seizure ppx. Please have patient follow up with my team in clinic in 2 weeks of discharge with another CT brain. Hold ASA until that time. Neurosurgery to sign-off, please call with questions. Godfrey Myers MD [facility] Neurosurgery I spent 60 minutes of my time independently reviewing labs, imaging, examining the patient and discussing his care with family members or other providers. [id number] Respiratory Care Department Progress Note As part of the Respiratory Assessment Program (RAP), the following Respiratory Therapist evaluation has been completed, including a chart review and clinical/physical assessment. Respiratory Therapist RAP Evaluation Guideline Points 0 1 2 3 4 Points Strongly Consider History Factor No Pulmonary conditions Stable Pulmonary condition(s) Surgery or Intervention that may impact Pulmonary system (at risk) Surgery or Intervention that is impacting Pulmonary system Active Exacerbation of Pulmonary Condition 0 Respiratory Pattern Regular, RR= 12-18 TORRES or Increased RR= 19-24 Irregular, or RR= 25-30 SOB, talk in short sentences, or RR= 31-35 Severe SOB, accessory muscle use, one word answers, or RR>35 0 Aerosol Med(s), High Flow O2 Breath Sounds Clear Diminished in 1 lobe Diminished in <= 2 lobes Adventitious breath sounds Coarse crackles, Wheezes, or Diminished in >2 lobes 1 Aerosol Med(s), Bronchial Hygiene, Hyperinflation Cough & Sputum Strong cough, no secretion retention or production Weak cough, no secretion retention or production Weak cough, w/ production (less often than Q2hr), or secretion retention No cough, w/ secretion retention or production (less often than Q2hr) Significant secretion production (more often than Q2hr) or mucus plug 1 Aerosol Med(s), Bronchial Hygiene, Hyperinflation Level of Activity Ambulatory Ambulatory with Assist Up in chair or edge of bed (dangle) Non-ambulatory, bedridden with active ROM Completely paralyzed or without active ROM 0 Triage 5 0-2 Triage 4 3-5 Triage 3 6-10 Triage 2 11-14 Triage 1 >=15 Total 2 Triage Score = 5 TRIAGE SCORING - SUGGESTED FREQUENCIES Aerosol Therapy Bronchial Hygiene Hyperinflation Triage Score Q4h & PRN 1 Q4hWA (QID) & PRN 2 TID & PRN 3 BID & PRN 4 PRN 5 Therapy(s) Indicated Yes/No Aerosol Medication prn Hyperinflation n Bronchial Hygiene n High Flow Oxygen n RT to enter/modify frequency of treatment order in EMR/EHR to match this RAP evaluation. Based on this RAP evaluation the following therapy is being initiated: Duoneb At the following frequency: PRN Comments: Thank you for involving Respiratory in the care of this patient, [facility]10-23-2024 NoteDepartment of Trauma / Critical Care Discharge Summary Name: Avery Vasquez Date: 06/27/2024 12:31 PM : 1950 Age/Sex: 74 y.o. male Admit Date: 06/26/2024 Discharge Date: 06/27/2024 Attending: Alonso Marin MD Discharge Diagnosis: 1. Intracranial bleeding (HCC) 2. Osteoporosis, unspecified osteoporosis type, unspecified pathological fracture presence 3. Closed fracture of multiple ribs of right side with routine healing 4. Traumatic closed fracture of distal clavicle with minimal displacement, right, initial encounter Patient Active Problem List Diagnosis Intracranial bleeding (HCC) Closed fracture of multiple ribs of right side with routine healing Traumatic closed fracture of distal clavicle with minimal displacement, right, initial encounter Body mass index is 35.17 kg/m?. BMI Classification: Obese (BMI 30.0-39.9) Reason for Hospitalization: The patient was admitted for injuries after being attacked by a cow and found to have right sided subarachnoid hemorrhage, right non displaced distal clavicle fracture, and right ribs #2-3 fractures. Hospital Course (Care, treatment and services provided): Please see H&P and prior notes for more detailed summary of previous investigations and clinical assessment prior to this admission. Brief HPI The incident happened around 9 AM on 06/26/24. 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 When he came over to check the cow, the cow got up and attacked him in the chest causing the patient to also fall over. Patient has a past medical history of diabetes, hypertension, dyslipidemia. Incidental Findings: 3.5 mm micro nodules in right lower lobe, no follow up necessary Hospital course: Patient was admitted to the ICU as a transfer from [facility]. Received CT Head, CTA Head and Neck, and CT Chest. Was seen by orthopedic surgery and Neurosurgery while here. Orthopedic and neurosurgery reccommended outpatient follow up based on imaging. For more specific details please see the specific beauty sales consultant notes. Consultations: IP CONSULT TO ORTHOPAEDIC SURGERY IP CONSULT TO ANESTHESIOLOGY - ACUTE PAIN SERVICE IP CONSULT TO HOME CARE NEEDS PCP: Aidan Argueta MD Recommended Follow-ups: Follow up with Trauma Service Follow up with Orthopedics Follow up with Neurosurgery Treatments and Procedures with outcomes: Labs: Data Review Data CBC with Differential: Lab Results Component Value Date WBC 10.4 06/27/2024 RBC 3.90 (L) 06/27/2024 HGB 11.5 (L) 06/27/2024 HCT 34.8 (L) 06/27/2024 PLT 229 06/27/2024 CMP: Lab Results Component Value Date NA 136 06/27/2024 K 4.2 06/27/2024 CL 108 (H) 06/27/2024 CO2 19 (L) 06/27/2024 BUN 22 (H) 06/27/2024 CREATININE 0.90 06/27/2024 GLUCOSE 114 (H) 06/27/2024 CALCIUM 9.7 06/27/2024 BMP: Hepatic Function Panel: Ionized Calcium: No components found for: IONCA Magnesium: No results found for: MG Phosphorus: No results found for: PHOS PT/INR: No results found for: PROTIME, INR PTT: No results found for: APTT[APTT Last 3 Troponin: No results found for: TROPONINI Urine Culture: No components found for: CURINE Blood Culture: No components found for: CBLOOD, CFUNGUSBL Blood Culture from Central Line: No components found for: CBLOODLN Stool Culture: No components found for: CSTOOL Sputum Culture: No components found for: CSPUTUM Sputum Culture for AFB: No components found for: CAFBSM Wound Culture: n/a Procedures: Laceration repair of posterior scalp with sutures Significant Imaging Results: CT chest wo IV contrast Result Date: 06/26/2024 Patient Name: AVERY VASQUEZ : 1950 [id number] Exam Date/Time: 06/26/2024 21:12 Procedure: CT CHEST WO IV CONTRAST Ordering Provider: STOVALL KATIE Reason For Exam: Chest trauma, blunt EXAMINATION: CT CHEST WO IV CONTRAST CLINICAL HISTORY: Chest trauma, blunt COMPARISON: None TECHNIQUE: Contiguous axial images of the chest without contrast were obtained from above the lung apices through the level of the adrenal glands. Dose reduction was employed with automated exposure control. FINDINGS: Cardiovasculature: The heart is large. Severe three-vessel coronary calcification. Atherosclerotic calcifications within the thoracic aorta. Mediastinum/Pericardium: Small pericardial effusion. Pleura: No pneumothorax or hemothorax. Central Airways: Widely patent. Lungs: No contusion or laceration. Nodules: Diffuse subpleural micronodules in the right lower lobe of uncertain significance (series 5, images 187, 195 and 201), the largest 3.5 mm. Lymph Nodes: No thoracic lymphadenopathy is evident. Included images of the upper abdomen: Gallstones are present. There is a small amount of excreted contrast in the renal collecting systems bilaterally, presumably from the recen (more content not included)...[facility]10-22-2024 Hospital Discharge instructions* Discharge Instructions* Price Monae MD - 06/26/2024 6:00 PM EDT Images from the original note were not included. Do any and all activities as tolerated. Nonweightbearing with your right upper extremity, right shoulder range of motion as tolerated. Please continue taking tylenol and lidocaine patches as needed for pain control. You can take oxycodone for pain control as needed for breakthrough pain, do not take more than twice a day. Please follow up with the neurosurgeon in his office in 1-2 weeks. Please follow up orthopedic surgery in the office in 1 week. Please follow up with trauma surgery service in1-2 weeks. Orthopaedic Surgery Discharge Instructions: -Do not put weight through right arm -Ok for range of motion of the shoulder -Wear sling for comfort - Activity as tolerated - Ice to reduce pain and swelling. Do not put ice directly on the skin. -Follow-up outpatient with with orthopedic trauma service in one week. The office contact information is provided in your paperwork. -Take medications as prescribed by the hospital doctors * Discharge Instr - LANG* Stefan Flores RN - 06/27/2024 11:52 AM EDT Images from the original note were not included. Continuity of Care Form Patient Name: Avery Vasquez : 1950 Admit date: 06/26/2024 Discharge date: Code Status Order: Full Code Advance Directives: N Admitting Physician: Alonso Marin MD PCP: Aidan Argueta MD Discharging Nurse: Discharging Hospital Unit/Room#: / A Discharging Unit Phone Number: Emergency Contact: Extended Emergency Contact Information Primary Emergency Contact: Margarita Vasquez Mobile Relation: Spouse Preferred language: Niuean Secondary Emergency Contact: Sania Clayton Mobile Relation: Sister Grinding Room Inspector needed? No Past Surgical History: No past surgical history on file. Immunization History: Immunization History Administered Date(s) Administered Covid-19, Pfizer Bivalent Booster, (Age 12y+), Im, 30 Mcg/0e 08/11/2022 Pfizer SARS-CoV-2 Vaccination 10/23/2020, 11/20/2020, 06/25/2021 Active Problems: Medical Problems Problem List * (Principal) Intracranial bleeding (HCC) Isolation/Infection: No active isolations No active infections Nurse Assessment: Last Vital Signs: BP 101/55 Pulse 92 Temp 36.3 C (97.4 F) Resp 15 Ht 1.727 m (5' 7.99) Wt 105 kg (231 lb 4.2 oz) SpO2 96% BMI 35.17 kg/m Last documented pain score (0-10 scale): Last Weight: Wt Readings from Last 1 Encounters: 06/27/24 105 kg (231 lb 4.2 oz) Mental Status: {LANG Patient Mental Status:30012} IV Access: {LANG IV Access:79900} Nursing Mobility/ADLs: Walking {RUBÉN ADL:::Independent} Transfer {RUBÉN ADL:::Independent} Bathing {RUBÉN ADL:::Independent} Dressing {RUBÉN ADL:::Independent} Toileting {RUBÉN ADL:53689::Independent} Feeding {RUBÉN ADL:::Independent} Chemical Strength Tester {RUBÉN ADL:59333::Independent} Med Delivery {yes/no:92948} Wound Care Documentation and Therapy: Wound/Incision 06/26/24 Traumatic Head Upper;Posterior (Active) Site Assessment Dry;Intact 06/27/24799 Janna-Wound Assessment Dry;Clean 06/26/241999 Drainage Description Red 06/27/24799 Odor None 06/26/241999 Drainage Amount Scant 06/27/24799 Treatments Cleansed;Pharmaceutical agent 06/27/24799 Primary Dressing Open to air 06/27/24799 Sutures Removed Intact Yes 06/26/242099 Number of days: 0 Elimination: Continence: Bowel: {yes/no:08764} Bladder: {yes/no:51664} Urinary Catheter: {LANG Urinary Catheter:44072} Colostomy/Ileostomy/Ileal Conduit: {YES / NO:} Date of Last BM: Intake/Output Summary (Last 24 hours) at 06/27/2024 1152 Last data filed at 06/27/2024 0600 Gross per 24 hour Intake 951.16 ml Output 300 ml Net 651.16 ml I/O last 3 completed shifts: In: 951.2 (9.1 mL/kg) [I.V.:951.2 (9.1 mL/kg)] Out: 300 (2.9 mL/kg) [Urine:300 (0.1 mL/kg/hr)] Weight: 104.9 kg Safety Concerns: {LANG Safety Concerns:63273} Impairments/Disabilities: {LANG Impairments/Disabilities:77213} Nutrition Therapy: Current Nutrition Therapy: {LANG Diet List:75123} Routes of Feeding: {routes of feedin} Liquids: {liquid consistency:77689} Daily Fluid Restriction: {daily fluid restriction:00556} Last Modified Barium Swallow with Video (Video Swallowing Test): {done not done:47784} Treatments at the Time of Hospital Discharge: Respiratory Treatments: Oxygen Therapy: {Therapy; copd oxygen:87806} Ventilator: {LANG Ventilator:06396} Rehab Therapies: {GEN THERAPY DISCIPLINE SCAL:5511195} Weight Bearing Status/Restrictions: {POD WEIGHT BEARIN} Other Medical Equipment (for information only, NOT a DME order): {Assistive Devices DME:19155} Other Treatments: Patient's personal belongings (please select all that are sent with patient): {LANG Patient Belongings:06778} RN SIGNATURE: {E-signature:18296} CASE MANAGEMENT/SOCIAL WORK SECTION Inpatient Status Date: Discharging to Facility/ Agency Name: [facility] Address: [address] [place] [address] Dialysis Facility (if applicable) Name: Address: Dialysis Schedule: Phone: Fax: Pharmacist/Molder Machine signature: {E-signature:10702} PHYSICIAN SECTION Name: Avery Vasquez Prognosis: {Rehab Prognosis:15586} Condition at Discharge: {Patient Condition:97494} Rehab Potential (if transferring to Rehab): {Rehab Prognosis:87549} Recommended Labs or Other Treatments After Discharge: The individual is being admitted to a nursing facility directly from an [facility] or a unit of a [facility] that is not operated by or licensed by [facility] under section 5119.14 or 5160-3-15.1 5 The individual requires the level of services provided by a nursing facility for the condition for which he or she was treated in the hospital and, Physician Certification: I certify the above information and transfer of Avery Vasquez is necessary for the continuing treatment of the diagnosis listed and that he requires {LANG Level of Care:63706} for {greater less than:09254} 30 days. Update Admission H&P: {LANG Changes in H&P:85226} PHYSICIAN SIGNATURE: {E-signature:09141} * Attachments The following attachments cannot be sent through Care Everywhere. * Blunt Chest Trauma ED (Niuean) * Rib Fracture Discharge Instructions (Niuean) * Intracerebral Hemorrhage Discharge Instructions (Niuean) documented in this [facility]10-22-2024 Consult note* Lida Whitten MD - 06/26/2024 5:59 PM EDTAssociated Order(s): IP CONSULT TO ORTHOPAEDIC SURGERY Images from the original note were not included. Ortho Consult Patient: Avery Vasquez Date of : 1950 Acct: [id number] PCP: Aidan Argueta MD Date of Admission: 06/26/2024 Date of Service: Pt seen/examined on 06/26/2024 Chief Complaint: Right shoulder pain History Of Present Illness: This is a 74 y.o. male who is being evaluated by the orthopedic servicetoday for right shoulder pain. 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 He walked towards the cow and it stood up hitting him in the chest and knocking him backwards. He states that he lost consciousness during this, and when he woke up he had right shoulder pain. He denies any numbness and tingling in his right arm. He denies any pain in his other extremities. He denies alcohol, tobacco, illicit drug use. Patient ambulation status: no difficulty Antiplatelets/Anticoagulation includes: none Hx from chart and/or Pt. Past Medical History: No past medical history on file. Past Surgical History: No past surgical history on file. Home Medications: Prior to Admission medications Medication Sig Start Date End Date Taking? Authorizing Provider aspirin 81 MG EC tablet Take 81 mg by mouth daily. Historical Provider, atorvastatin (Lipitor) 10 MG tablet Take 10 mg by mouth Nightly. Historical Provider, Calcium Carbonate-Vit D-Min (Calcium 600+D3 Plus Minerals) 600-800 MG-UNIT tablet Take 1 tablet by mouth daily. Historical Provider, dapagliflozin (Farxiga) 10 MG tablet Take 10 mg by mouth daily. Historical Provider, dulaglutide (Trulicity) 0.75 MG/0.5ML Inject 0.75 mg under the skin 1 (one) time per week. Historical ProviderMD glimepiride (Amaryl) 1 MG tablet Take 1 mg by mouth daily (with breakfast). Historical Provider, metFORMIN (Glucophage) 500 MG tablet Take 500 mg by mouth in the morning and 500 mg in the evening.Take with meals. Historical Provider, Multiple Vitamins-Minerals (MULTIVITAMIN ADULT, MINERALS, PO) Take 1 tablet by mouth daily. Historical ProviderMD tamsulosin (Flomax) 0.4 MG 24 hr capsule Take 0.4 mg by mouth Nightly. Historical ProviderMD valsartan (Diovan) 160 MG tablet Take 160 mg by mouth 2 times daily. Historical Provider, Current Hospital Medications: Current Facility-Administered Medications: acetaminophen (Tylenol) tablet 1,000 mg, 1,000 mg, Oral, q8h PRN, Serge Razo III, MD atorvastatin (Lipitor) tablet 10 mg, 10 mg, Oral, Nightly, Shy Doran MD bacitracin ointment, , Topical, TID, Shy Doran MD, Given at 06/26/24 1615 dextrose 5 % infusion, 100 mL/hr, IntraVENous, PRN, Shy Doran MD dextrose 50 % solution 12.5 g, 12.5 g, IntraVENous, PRN, Shy Doran MD glucagon (human recombinant) injection 1 mg, 1 mg, IntraMUSCular, PRN, Shy Doran MD glucose oral gel 15 g, 15 g, Oral, PRN, Shy Doran MD hydrALAZINE (Apresoline) injection 10 mg, 10 mg, IntraVENous, q10 min PRN, Serge aRzo III, MD Insulin Lispro (Humalog) injection 0-12 Units, 0-12 Units, SubCUTAneous, TID WC, 2 Units at 06/26/24 1715 AND Insulin Lispro (Humalog) injection 0-12 Units, 0-12 Units, SubCUTAneous, Nightly, Shy Doran MD labetalol (Normodyne,Trandate) injection 10 mg, 10 mg, IntraVENous, q10 min PRN, Serge Razo III, MD levETIRAcetam (Keppra) tablet 500 mg, 500 mg, Oral, BID, Shy Doran MD mupirocin (Bactroban) 2 % ointment 1 Application, 1 Application, Nasal, BID, Serge Razo III, MD naloxone (Narcan) injection 0.4 mg, 0.4 mg, IntraVENous, q5 min PRN, Alonso Marin MD ondansetron ODT (Zofran-ODT) disintegrating tablet 4 mg, 4 mg, Oral, q8h PRN OR ondansetron (Zofran) injection 4 mg, 4 mg, IntraVENous, q6h PRN, Serge Razo III, MD, 4 mg at 06/26/24 1607 oxyCODONE (Roxicodone) immediate release tablet 2.5 mg, 2.5 mg, Oral, q4h PRN OR oxyCODONE (Roxicodone) immediate release tablet 5 mg, 5 mg, Oral, q4h PRN, Serge Razo III, MD polyethylene glycol (PEG) 3350 (Miralax) packet 17 g, 17 g, Oral, Daily PRN, Serge Razo III, MD sodium chloride 0.9 % infusion, 75 mL/hr, IntraVENous, Continuous, Serge Razo III, MD, Last Rate: 75 mL/hr at 06/26/24 1536, 75 mL/hr at 06/26/24 1536 sodium chloride 0.9% (NS) flush 30 mL, 30 mL, IntraVENous, q6h, Serge Razo III, MD sodium chloride 0.9% (NS) flush 30 mL, 30 mL, IntraVENous, PRN, Serge Razo III, MD sodium chloride 0.9% (NS) flush 30 mL, 30 mL, IntraVENous, PRN, Serge Razo III, MD tamsulosin (Flomax) 24 hr capsule 0.4 mg, 0.4 mg, Oral, Nightly, Shy Doran MD valsartan (Diovan) tablet 160 mg, 160 mg, Oral, BID, Shy Doran MD Allergies: Bactrim [sulfamethoxazole-trimethoprim], Hydrocodone-acetaminophen, Lisinopril, and Tramadol Social History: Social History Socioeconomic History Marital status: Spouse name: Not on file Number of children: Not on file Years of education: Not on file Highest education level: Not on file Occupational History Not on file Tobacco Use Smoking status: Not on file Smokeless tobacco: Not on file Substance and Sexual Activity Alcohol use: Not on file Drug use: Not on file Sexual activity: Not on file Other Topics Concern Not on file Social History Narrative Not on file Social Drivers of Health Financial Resource Strain: Not on file Food Insecurity: Not on file Transportation Needs: Not on file Physical Activity: Not on file Stress: Not on file Social Connections: Not on file Intimate Partner Violence: Not on file Housing Stability: Not on file Family History: No family history on file. Further Family History is noncontributory to this injury. REVIEW OF SYSTEMS: Review of Systems - General ROS: negative for - chills, fatigue, fever, malaise or night sweats Psychological ROS: negative Ophthalmic ROS: negative ENT ROS: negative for - headaches or sore throat Hematological and Lymphatic ROS: negative for - bleeding problems or blood clots Respiratory ROS: no cough, shortness of breath, or wheezing Cardiovascular ROS: no chest pain or dyspnea on exertion Gastrointestinal ROS: negative Musculoskeletal ROS: See HPI Neurological ROS: negative for - bowel and bladder control changes, gait disturbance or numbness/tingling All other systems reviewed and are negative PHYSICAL EXAM: BP 103/84 Pulse 79 Temp 36.9 C (98.5 F) (Temporal) Resp 24 Ht 1.727 m (5' 8) Wt 103 kg (227 lb 11.8 oz) SpO2 96% BMI 34.63 kg/m GENERAL APPEARANCE: Awake and oriented x3. No acute distress, except appropriate to injury. MOOD AND AFFECT: Calm appropriate to situation GAIT AND STATION: Patient is in bed and able to ambulate if desired COORDINATION and BALANCE: Patient is grossly coordinated Right Upper Extremity: -No obvious pain or deformity to inspection with normal joint range of motion, stability, and muscle strength except noted below -No TTP over humerus, elbow, forearm, wrist, hand, or fingers -TTP: Clavicle and Shoulder -Radial pulse palpable -SILT in radial/median/ ulnar nerve distributions -Motor + AIN/PIN/ulnar nerve functions -No Lymphedema -Skin intact except where noted below -Painless pROM at elbow/wrist There is mild edema present over the right anterior clavicle. There is minimal ecchymosis over the clavicle. There is pain with range of motion at the shoulder, arm more comfortable in sling. There is no evidence of motor weakness in the right upper extremity, or sensory deficits. Left Upper Extremity: -No obvious pain or deformity to inspection with normal joint range of motion, stability, and muscle strength except noted below -No TTP over clavicle, shoulder, humerus, elbow, forearm, wrist, hand, or fingers -TTP: nontender throughout extremity -Radial pulse palpable -SILT in radial/median/ ulnar nerve distributions -Motor + AIN/PIN/ulnar nerve functions -No Lymphedema -Skin intact except where noted below -Painless pROM at shoulder/elbow/wrist Atraumatic Right Lower Extremity: -No obvious pain or deformity to inspection with normal joint range of motion, stability, and muscle strength except noted below -No TTP over pelvis, hip, thigh, knee, tibia, lateral mal, medial mal, calc, midfoot, forefoot -TTP: Nontender throughout extremity -Pulse: DP Palpable -SILT in the superficial peroneal, deep peroneal, tibial, sural, saphenous nerve distributions -Motor function of quad, tibialis anterior, extensor hallucis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 Extremities: no deformity, no edema or tenderness, no joint swelling or clubbing. Neurological: normal cognition and motor skills. Gait normal. No weakness or sensory deficit. PAIN ASSESSMENT: Pain Pain Level: 0 Pain Location: Shoulder-Left Description: Sharp Duration Amount of Time: 10 Duration Units: Years Frequency: Intermittent Intervention/Comfort measure: Medication VITALS: BP 134/62 Pulse 100 Temp (Src) 97.4 (Temporal) Resp 18 Ht 5' 8 (1.73m) Wt 240 lb (108.9kg) SpO2 97% BMI 36.50 kg/(m^2). Diagnostic tests reviewed for today's visit: Lab Value Units Date High Low HB No results within date range. HCT No results within date range. WBC No results within date range. PLT No results within date range. NA No results within date range. K No results within date range. GLUC No results within date range. BUN No results within date range. CREAT No results within date range. PTSEC No results within date range. INR No results within date range. APTT No results within date range. ALT No results within date range. AST No results within date range. TBILI No results within date range. TSH No results within date range. Lab Value Units Date High Low HCGQT No results within date range. UHCG No results within date range. HCG, BODY* No results within date range. Lab Value Units Date High Low ABORHD No results within date range. ABSCREEN No results within date range. No results found for: HBA1C No results found for this or any previous visit (from the past 8760 hour(s)). No results found for this or any previous visit (from the past 48740 hour(s)). Assessment Diabetes (HCC) Assessment: Last HbA1C - 7.6 (02/2022). Oral medication. Checks glucose daily, avg 130-145. Hypertension Assessment: Compliant with Rx. Last 2 Encounter BP Readings: Date: BP: 03/05/2022 134/62 12/16/2017 125/81 Obesity, Class II, BMI 35-39.9 E66.9 Assessment: Body mass index is 36.49 kg/m . HLD (hyperlipidemia) Assessment: Compliant with Rx. Following with PCP. [place]in Activity Status Index: METS: Climb a flight of stairs or walk up a hill (5.50 METs) DASI Score: 5.5 Patient denies any chest pain or undue shortness of breath with the above physical activity. Clinical Frailty Scale: 4. Apparently vulnerable STOP-Bang Score: Has or is being treated for high blood pressure Patient over 50 years old Has a large neck Male patient Denies snoring loudly Denies feeling tired, fatigued, or sleepy during the daytime Has not been observed to stop breathing or choking/gasping during sleep BMI less than or equal to 35 kg/m^2 STOP-Bang Score: 4 [id number] Score: Age: 65-74 Sex: male CHF history: No Hypertension history: Yes Stroke/TIA/thromboembolism history: No Vascular disease history: No Diabetes history: Yes [id number] Score: 3 ASA Class: 2 ANESTHESIA FINDINGS: Intubation History: No history of difficult intubation. No abnormal airway history Significant Anesthesia Considerations: none Airway History: No history of difficult airway No abnormal airway history I - PHYSICAL EVALUATION AIRWAY Tracheostomy tube not present Mallampati: II. TM distance: >3 FB. Neck ROM: full ROM without neurological symptoms. Mouth opening: adequate. Short neck: yes. Thick neck: no Additional comments: Large tongue. DENTAL Dental findings: missing tooth/teeth. Dentures, upper: complete. Additional comments: Permanent bridge. II - ANESTHESIA PLAN ASA Score: 2 Anesthetic Plan: general Prepared for Surgery: optimally prepared for surgery, pending (see comment). Labs Requested most recent EKG from [facility]. Most recent blood work from 02/2022 available for review in Care Everywhere. Telephone encounter sent to Dr. Ortiz confirming he is aware of HbA1C. DOS glucose CONSULTS: Patient does not require consults for optimization at this time Planned Anesthetic: general The Following Tests/Procedures Have Been Initiated: Orders Placed This Encounter T&S - 30 Day Standing Status: Future Number of Occurrences: 1 Standing Expiration Date: 05/05/2022 [place] Standing Status: Future Number of Occurrences: 1 Standing Expiration Date: 05/05/2022 Order Specific Question: Did Blood Bank direct you to place this order: Answer: No - Presurgical Workflow glimepiride (AMARYL) 2 mg tablet Sig: Take 1 tablet by mouth once daily. CALCIUM ORAL Sig: Take 1 tablet by mouth once daily. multivitamin tablet Sig: Take 1 tablet by mouth once daily. Instructions Given to Patient: Instructions located in the after visit summary. Patient given verbal and written preop instructions and voices comprehension and compliance. SIGNATURE: Audrey Jacobs APRN.CNP PATIENT NAME: Avery Vasquez DATE: March 05, 2022 TIME: 1:47 PM PAGER/CONTACT #: documented in this encounterOhiohealth O[facility]07-01-2022 Instructions* Patient Instructions* Audrey Jacobs APRN.CNP - 03/05/2022 3:00 PM EDT PATIENT PREOPERATIVE INSTRUCTIONS Bert Ortiz has scheduled you for your procedure at this surgery center: [facility]: [phone] -- [address] [facility] [address]. Please read below carefully for your personalized instructions. Dietary Restrictions: - No solid food after midnight. - You may have 12 ounces of clear liquids (water, clear juices such as apple juice or gatorade, carbonated beverages, clear tea, black coffee, jello) until 2 hours before scheduled arrival at facility. - Do not drink any alcohol after midnight the night before your surgery. Medications: Unless instructed differently below, stay on all of your medications until your surgery. Approved medications to take the morning of surgery with a sip of water: Atorvastatin (Lipitor) DO NOT TAKE YOUR Lisinopril THE NIGHT BEFORE OR MORNING OF SURGERY - No diabetic medication the morning of surgery. - Accucheck day of surgery. If you start any new medications after today's visit, please contact the surgeon's office. Blood Thinning Medications: - Stop NSAIDS (Ibuprofen, Advil, Aleve, Motrin, Celebrex, Mobic, etc.) 7 days before surgery, as directed by your surgeon. - Stop Aspirin 7 days before surgery, as directed by your surgeon. - Stop Vitamin E, ALL multi-vitamins, herbals and dietary supplements 7 days before surgery. - You may take Tylenol (Acetaminophen) or any of your pain medications that do not contain aspirin or NSAIDS as needed. Important Reminders: - Candy, mints, and tobacco products are NOT permitted the morning of surgery. - Hearing aids, dentures and glasses may be worn the morning of surgery. - NO jewelry, body piercings, makeup, hairpins or contacts are to be worn the day of surgery. If you develop symptoms such as a fever, cold, or flu, or have other changes to your health within TWO DAYS of scheduled surgery or the morning of surgery, please contact the surgery center above. Personal Belongings: -Please have photo ID and insurance cards. -If you do not have a copy of advance directives on file with us, please bring a copy with you on the day of surgery. - Leave ALL valuables and money at home or with family members. For Outpatient Procedures: - YOU MUST HAVE A RESPONSIBLE CEMENT CUTTER TAKE YOU HOME. A DAY HAUL OR FARM CHARTER BUS DRIVER OR SUMMER CHILD CAREGIVER CANNOT BE MADE A RESPONSIBLE CEMENT CUTTER. - We recommend that a responsible person stays with you overnight to take care of you. - You cannot stay in a hotel alone after outpatient surgery. You will not be permitted to have yoursurgery, if you do not have someone to take care of you. Arrival Time for Surgery: - The Surgery Center or hospital where you are having surgery will call the afternoon before surgery (or Tuesday for Tuesday surgery) with a scheduled arrival time. - If you have not heard by 4 pm, please contact the surgery center above. Please be aware that emergency situations arise, which may delay or change your surgical time. If this happens, we will notify you as soon as possible and regret any inconvenience. If you already have an Advance Directive, please fax a copy to [phone] or email to for it to be added to your chart. If you do not have an Advance Directive, you can find the appropriate form and more information at [email or web address]. We recommend that youcomplete the Advance Directive form found on the website and bring it with you the day of your surgery. It can be witnessed and scanned into your chart that day. Audrey Jacobs APRN.CNP documented in this encounterOhiohealth O'[facility]07-01-2022 NoteHNO ID: [id number] Author: MICHELLE Humphrey Service: Radiology Author Type: Technologist Type: Progress Notes Filed: 03/05/2022 10:51 AM Note Text: Radiology Service Progress Note PATIENT NAME: Avery Vasquez DATE OF SERVICE: March 05, 2022 TIME: 10:51 AM PATIENT IDENTITY VERIFICATION COMPLETED USING TWO (2) IDENTIFIERS: Name and Date of confirmed by patient verbally. FALL SCREENING: Has the patient had 2 falls in the last year or 1 fall with injury or currently using an Ambulatory Assistive Device (Walker, Cane, Wheelchair, Crutches, etc.)? No PATIENT GENDER DATA: Male PATIENT RELEVANT IMPLANT DATA REVIEWED: Not Applicable RADIOLOGY DEPARTMENT: General X-ray: Exam(s) Completed: Upper Extremity X-Ray(s): Shoulder, AP / TRUE AP / AXILLARY / SUPRA OUTLET left PERIPHERAL IV DATA: Not applicable SIGNED BY: MICHELLE Humphrey March 05, 2022 10:51 AMKet[facility] [id number] NoteHNO ID: [id number] Author: Bert Ortiz MD Service: ? Author Type: Physician Type: Progress Notes Filed: 03/05/2022 11:16 AM Note Text: ORTHOPAEDIC SHOULDER AND ELBOW SERVICE HISTORY AND PHYSICAL EXAM REFERRING PROVIDER: SELF CHIEF COMPLAINT: Left shoulder osteoarthritis PAIN EVALUATION 03/05/2022 0958 Pain Level: 6 Pain Location: Shoulder-Left Description: Aching;Dull;Sore;Throbbing Duration Amount of Time: ? ongoing Frequency: Intermittent Intervention/Comfort measure: Reposition;Relaxation;Cold;Medication Avery Vasquez is a 72 year old man who presents today for evaluation of his left shoulder. He has been treated in the past for osteoarthritis of the left shoulder with conservative measures which are no longer effective. He is noticing more pain and weakness as well as limited mobility of his left shoulder. He has undergone reverse arthroplasty for the right shoulder approximately 4 years ago with a good outcome. He is interested in discussing surgical options for his left shoulder today. PAST MEDICAL HISTORY: PAST MEDICAL HISTORY Diagnosis Date - Diabetes (HCC) - Hypertension - Osteoarthritis PAST SURGICAL HISTORY: PAST SURGICAL HISTORY Procedure Laterality Date - ORTHOPEDICS SURGERY HX Bilateral knee replacements - ORTHOPEDICS SURGERY HX Carpal tunnel surgery x 3 SOCIAL HISTORY: Social History Tobacco Use - Smoking status: Former Smoker Types: Cigars - Smokeless tobacco: Never Used Substance Use Topics - Alcohol use: Yes Alcohol/week: 5.0 standard drinks Types: 2 Glasses of Wine (5oz) per week - Drug use: No ALLERGIES: ALLERGIES Allergen Reactions - Bactrim [Sulfametho* Rash - Tramadol Unknown - Vicodin [Hydrocodon* Intolerance MEDICATIONS: Current Outpatient Medications on File Prior to Visit Medication Sig - metFORMIN ER (GLUMETZA) 500 mg 24 hr tablet Take 1,000 mg by mouth twice daily. - lisinopril (ZESTRIL, PRINIVIL) 10 mg tablet Take 10 mg by mouth once daily. - atorvastatin (LIPITOR) 10 mg tablet Take 10 mg by mouth once daily. - glimepiride (AMARYL) 1 mg tablet Take 2 mg by mouth daily with breakfast. Unknown dose - aspirin, enteric coated (ASPIRIN, ENTERIC COATED) 81 mg EC tablet Take 81 mg by mouth once daily. No current facility-administered medications on file prior to visit. PHYSICAL EXAMINATION: There were no vitals taken for this visit. EXAM: Shoulder Musculoskeletal Exam General Constitutional: appears stated age Labored breathing: no Psychiatric: normal mood and affect and no acute distress Neurological: alert and oriented x3 Skin: intact Inspection Inspection - Left Left shoulder inspection is normal. Palpation Palpation - Left Crepitus: no crepitus Increased warmth: none Tenderness: present Anterior shoulder: moderate Posterior shoulder: moderate Range of Motion Range of Motion - Left Active forward elevation: 60 Passive forward elevation: 60 Shoulder active abduction: 60 Passive abduction: 60 Active external rotation at side: 10 Passive external rotation at side: 10 Active external rotation in abduction: 10 Passive external rotation in abduction: 10 Active internal rotation in abduction: 0 Passive internal rotation in abduction: 0 Internal rotation: L5 Strength Strength - Left External rotation: 5/5 Internal rotation: 5/5 Abduction: 5/5 Neurovascular Neurovascular - Left Left shoulder nerve sensation is normal. Scapula Scapula - Left Position: normal Dyskinesia: none Winging: none IMAGING: I reviewed radiographs of his left shoulder today showing advanced osteoarthritis of the glenohumeral joint with loss of joint space and flattening of the humeral head. There is large osteophyte formation on the inferior humeral head MEDICAL DECISION MAKING: (M25.512, G89.29) Chronic left shoulder pain (primary encounter diagnosis) Comment: Plan: XR SHOULDER GENERAL 3V OR MORE AP/TRUE AP/OTHER LEFT Avery Vasquez presents today with severe osteoarthritis of the left shoulder not responsive any longer to conservative measures. After thorough review of history, examination findings, and imaging, we discussed surgical intervention today which would be reverse total shoulder arthroplasty. I described the procedure in detail as well as the expected healing time of 3-6 months and physical therapy regimen following surgery, likely for much of this time. Informed consent was discussed in detail and signed in the office today. Significant risks of surgery including those of general anesthesia, and those from surgery including infection, nerve injury, bleeding, procedure failure and possible need for repeat procedure were all discussed at the time of consent. No guarantees as to the outcome of surgery were given or implied. Surgery will be scheduled for the next available date. Medical decision making for today's visit was co (more content not included)... [facility]07-01-2022 History of Present illness Narrative* MICHELLE Humphrey - 03/05/2022 11:40 AM EDT Radiology Service Progress Note PATIENT NAME: Avery Vasquez DATE OF SERVICE: March 05, 2022 TIME: 10:51 AM PATIENT IDENTITY VERIFICATION COMPLETED USING TWO (2) IDENTIFIERS: Name and Date of confirmedby patient verbally. FALL SCREENING: Has the patient had 2 falls in the last year or 1 fall with injury or currently using an Ambulatory Assistive Device (Walker, Cane, Wheelchair, Crutches, etc.)? No PATIENT GENDER DATA: Male PATIENT RELEVANT IMPLANT DATA REVIEWED: Not Applicable RADIOLOGY DEPARTMENT: General X-ray: Exam(s) Completed: Upper Extremity X- Ray(s): Shoulder, AP / TRUE AP / AXILLARY / SUPRA OUTLET left PERIPHERAL IV DATA: Not applicable SIGNED BY: MICHELLE Humphrey March 05, 2022 10:51 AM documented in this encounterOhiohealth O'[facility]07-01-2022 History of Present illness Narrative* Bert Ortiz MD - 03/05/2022 11:13 AM EDT Images from the original note were not included. ORTHOPAEDIC SHOULDER & ELBOW SERVICE HISTORY & PHYSICAL EXAM REFERRING PROVIDER: SELF CHIEF COMPLAINT: Left shoulder osteoarthritis PAIN EVALUATION 03/05/2022 0958 Pain Level: 6 Pain Location: Shoulder-Left Description: Aching;Dull;Sore;Throbbing Duration Amount of Time: ongoing Frequency: Intermittent Intervention/Comfort measure: Reposition;Relaxation;Cold;Medication Avery Vasquez is a 72 year old man who presents today for evaluation of his left shoulder. He has been treated in the past for osteoarthritis of the left shoulder with conservative measures which are no longer effective. He is noticing more pain and weakness as well as limited mobility of his left sh oulder. He has undergone reverse arthroplasty for the right shoulder approximately 4 years ago witha good outcome. He is interested in discussing surgical options for his left shoulder today. PAST MEDICAL HISTORY: PAST MEDICAL HISTORY Diagnosis Date Diabetes (HCC) Hypertension Osteoarthritis PAST SURGICAL HISTORY: PAST SURGICAL HISTORY Procedure Laterality Date ORTHOPEDICS SURGERY HX Bilateral knee replacements ORTHOPEDICS SURGERY HX Carpal tunnel surgery x 3 SOCIAL HISTORY: Social History Tobacco Use Smoking status: Former Smoker Types: Cigars Smokeless tobacco: Never Used Substance Use Topics Alcohol use: Yes Alcohol/week: 5.0 standard drinks Types: 2 Glasses of Wine (5oz) per week Drug use: No ALLERGIES: ALLERGIES Allergen Reactions Bactrim [Sulfametho* Rash Tramadol Unknown Vicodin [Hydrocodon* Intolerance MEDICATIONS: Current Outpatient Medications on File Prior to Visit Medication Sig metFORMIN ER (GLUMETZA) 500 mg 24 hr tablet Take 1,000 mg by mouth twice daily. lisinopril (ZESTRIL, PRINIVIL) 10 mg tablet Take 10 mg by mouth once daily. atorvastatin (LIPITOR) 10 mg tablet Take 10 mg by mouth once daily. glimepiride (AMARYL) 1 mg tablet Take 2 mg by mouth daily with breakfast. Unknown dose aspirin, enteric coated (ASPIRIN, ENTERIC COATED) 81 mg EC tablet Take 81 mg by mouth once daily. No current facility-administered medications on file prior to visit. PHYSICAL EXAMINATION: There were no vitals taken for this visit. EXAM: Shoulder Musculoskeletal Exam General Constitutional: appears stated age Labored breathing: no Psychiatric: normal mood and affect and no acute distress Neurological: alert and oriented x3 Skin: intact Inspection Inspection - Left Left shoulder inspection is normal. Palpation Palpation - Left Crepitus: no crepitus Increased warmth: none Tenderness: present Anterior shoulder: moderate Posterior shoulder: moderate Range of Motion Range of Motion - Left Active forward elevation: 60 Passive forward elevation: 60 Shoulder active abduction: 60 Passive abduction: 60 Active external rotation at side: 10 Passive external rotation at side: 10 Active external rotation in abduction: 10 Passive external rotation in abduction: 10 Active internal rotation in abduction: 0 Passive internal rotation in abduction: 0 Internal rotation: L5 Strength Strength - Left External rotation: 5/5 Internal rotation: 5/5 Abduction: 5/5 Neurovascular Neurovascular - Left Left shoulder nerve sensation is normal. Scapula Scapula - Left Position: normal Dyskinesia: none Winging: none IMAGING: I reviewed radiographs of his left shoulder today showing advanced osteoarthritis of the glenohumeral joint with loss of joint space and flattening of the humeral head. There is large osteophyte formation on the inferior humeral head MEDICAL DECISION MAKING: (M25.512, G89.29) Chronic left shoulder pain (primary encounter diagnosis) Comment: Plan: XR SHOULDER GENERAL 3V OR MORE AP/TRUE AP/OTHER LEFT Avery Vasquez presents today with severe osteoarthritis of the left shoulder not responsive any longer to conservative measures. After thorough review of history, examination findings, and imaging, wediscussed surgical intervention today which would be reverse total shoulder arthroplasty. I described the procedure in detail as well as the expected healing time of 3-6 months and physical therapy regimen following surgery, likely for much of this time. Informed consent was discussed in detail andsigned in the office today. Significant risks of surgery including those of general anesthesia, andthose from surgery including infection, nerve injury, bleeding, procedure failure and possible needfor repeat procedure were all discussed at the time of consent. No guarantees as to the outcome of surgery were given or implied. Surgery will be scheduled for the next available date. Medical decision making for today's visit was conducted with review of the following data sources: History, exam, imaging REFERRING PHYSICIAN: The patient was referred to sc for consultation by the following physician. This consultation note will be sent to the following physician by either mail or electronic medical record. SELF Bert Ortiz MD Shoulder & Elbow Surgeon Department of Orthopaedic Surgery [facility] Medical Decision Making documented in this encounterOhiohealth O'[facility]04-13-2018 History of Past illness Narrative* Problem Noted Date Resolved Date Trauma 12/16/2017 12/18/2017 Overview: Added automatically from request for surgery [id number] Fracture three ribs-closed, right, initial encou nter 12/16/2017 03/05/2022 documented as of this encounter (statuses as of 03/05/2022) [place] [id number] History of Past illness Narrative* Problem Noted Date Resolved Date Pneumomediastinum 12/16/2017 03/05/2022 Trauma 12/16/2017 12/18/2017 Overview: Added automatically from request for surgery [id number] Fracture three ribs-closed, right, initial encou nter 12/16/2017 03/05/2022 documented as of this encounter (statuses as of 03/05/2022) [place] [id number] History of Past illness Narrative* Problem Noted Date Resolved Date Pneumomediastinum 12/16/2017 03/05/2022 Trauma 12/16/2017 12/18/2017 Overview: Added automatically from request for surgery [id number] Fracture three ribs-closed, right, initial encou nter 12/16/2017 03/05/2022 documented as of this encounter (statuses as of 03/05/2022) [address]13-2018 History of Past illness Narrative* Problem Noted Date Resolved Date Pneumomediastinum 12/16/2017 03/05/2022 Trauma 12/16/2017 12/18/2017 Overview: Added automatically from request for surgery [id number] Fracture three ribs-closed, right, initial encou nter 12/16/2017 03/05/2022 documented as of this encounter (statuses as of 03/06/2022) [address]13-2018 History of Past illness Narrative* Problem Noted Date Resolved Date Pneumomediastinum 12/16/2017 03/05/2022 Trauma 12/16/2017 12/18/2017 Overview: Added automatically from request for surgery [id number] Fracture three ribs-closed, right, initial encou nter 12/16/2017 03/05/2022 documented as of this encounter (statuses as of 03/12/2022) [address]13-2018 History of Past illness Narrative* Problem Noted Date Resolved Date Pneumomediastinum 12/16/2017 03/05/2022 Trauma 12/16/2017 12/18/2017 Overview: Added automatically from request for surgery [id number] Fracture three ribs-closed, right, initial encou nter 12/16/2017 03/05/2022 documented as of this encounter (statuses as of 03/24/2022) [address]13-2018 History of Past illness Narrative* Problem Noted Date Resolved Date Pneumomediastinum 12/16/2017 03/05/2022 Trauma 12/16/2017 12/18/2017 Overview: Added automatically from request for surgery [id number] Fracture three ribs-closed, right, initial encou nter 12/16/2017 03/05/2022 documented as of this encounter (statuses as of 04/03/2022) [address]13-2018 History of Past illness Narrative* Problem Noted Date Resolved Date Pneumomediastinum 12/16/2017 03/05/2022 Trauma 12/16/2017 12/18/2017 Overview: Added automatically from request for surgery [id number] Fracture three ribs-closed, right, initial encou nter 12/16/2017 03/05/2022 documented as of this encounter (statuses as of 04/07/2022) [facility] of Past illness Narrative* Problem Noted Date Resolved Date Pneumomediastinum 12/16/2017 03/05/2022 Trauma 12/16/2017 12/18/2017 Overview: Added automatically from request for surgery [id number] Fracture three ribs-closed, right, initial encou nter 12/16/2017 03/05/2022 documented as of this encounter (statuses as of 04/14/2022) [facility] of Past illness Narrative* Problem Noted Date Resolved Date Pneumomediastinum 12/16/2017 03/05/2022 Trauma 12/16/2017 12/18/2017 Overview: Added automatically from request for surgery [id number] Fracture three ribs-closed, right, initial encou nter 12/16/2017 03/05/2022 documented as of this encounter (statuses as of 05/07/2022) [facility] of [facility] illness Narrative* Problem Noted Date Resolved Date Pneumomediastinum 12/16/2017 03/05/2022 Trauma 12/16/2017 12/18/2017 Overview: Added automatically from request for surgery [id number] Fracture three ribs-closed, right, initial encou nter 12/16/2017 03/05/2022 documented as of this encounter (statuses as of 05/08/2022) [facility] of Past illness Narrative* Problem Noted Date Resolved Date Pneumomediastinum 12/16/2017 03/05/2022 Trauma 12/16/2017 12/18/2017 Overview: Added automatically from request for surgery [id number] Fracture three ribs-closed, right, initial encou nter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 Activated Date Inactivated Comments 06/26/2024 3:03 PM 06/27/2024 4:11 PM Healthcare Agents on File Name Relationship Healthcare Agent Relationship Communication Margarita Vasquez Spouse Health Care Agent Sania Clayton Sister First Alternate Health Care Agent Nisa Terfredericllrubén Niece Second Alternate Health Care Agent Healthcare Agents on File Name Relationship Healthcare Agent Relationship Communication Margarita Vasquez Spouse Health Care Agent Sania Clayton Sister First Alternate Health Care Agent Nisa Terwillrubén Niece Second Alternate Health Care Agent Healthcare Agents on File Name Relationship Healthcare Agent Relationship Communication Margarita Vasquez Spouse Health Care Agent Sania Clayton Sister First Alternate Health Care Agent Nisa Terwillger Niece Second Alternate Health Care Agent Healthcare Agents on File Name Relationship Healthcare Agent Relationship Communication Margarita Vasquez Spouse Health Care Agent Sania Clayton Sister First Alternate Health Care Agent Nisa Terwillger Niece Second Alternate Health Care Agent Advance Directive Response Recorded Date/ Time Advance Directives Yes May 8:11am Chief Complaint and Reason for Visit Chief Complaint *TRUE SIGHT* - Prima ry osteoarthritis, 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 Chief Complaint *TRUE SIGHT* - Prima ry osteoarthritis, 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 LT TOTAL SHOULDER REVERSE LT TOTAL SHOULDER REVERSE L SHOULDER SX ON 02/24/22.DR FITZGERALD RX Chief Complaint LT TOTAL SHOULDER RE VERSE LT TOTAL SHOULDER REVERSE L SHOULDER SX ON 02/24/22.DR FITZGERALD RX Chief Complaint LUMBER SPINE Rm 4 xray LUMBAR SPINE Reason for Visit Spinal stenosis of l umbar region Spondylosis of lumbar spine with myelopathy Spinal stenosis of lumbar region Diabetes mellitus type 2, uncontrolled, with complications Chief Complaint Admit Date RIGHT CLAVICLE July 26, 2024 8:16am RM 1 July 26, 2024 8:27am Booked from other vendor September 23 025 7:58am Reason for Visit Admit Date Right clavicle fracture July 26 024 8:16am Acute cystitis September 23, 2024 7 :58am Chief Complaint Admit Date 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 RX HERE June 28 8:00am Reason for Visit Admit Date Degenerative scoliosis June 14 8:18am Kyphosis June 14, 2025 8 :18am Leg length discrepancy June 14 8:18am Lumbar degenerative disc disease June 14, 2025 8:18am Obesity (BMI 30-39.9) June 14, 2025 8:18am Osteopenia determined by x-ray June 052024 8:18am Additional Source Comments (unrecognized sect ion and content) No Status Records FoundNo Status Records FoundNo Status Records FoundNo Status Records FoundNo Status Records FoundNo Status Records FoundNo Status Records FoundNo Status Records Found INFORMATION SOURCE (unrecogn ized section and content) DATE CREATED AUTHOR 02/23/2018 [facility] DATE CREATED AUTHOR AUTHOR'S ORGANIZ ATION 02/23/2018 [facility] DATE CREATED AUTHOR AUTHOR'S ORGANIZ ATION 09/24/2018 [facility] ([place]) DATE CREATED AUTHOR AUTHOR'S ORGANIZ ATION 06/29/2022 [facility] DATE CREATED AUTHOR AUTHOR'S ORGANIZ ATION 06/29/2022 [facility] DATE CREATED AUTHOR AUTHOR'S ORGANIZ ATION 09/17/2022 [facility] DATE CREATED AUTHOR AUTHOR'S ORGANIZ ATION 10/13/2024 [facility] DATE CREATED AUTHOR AUTHOR'S ORGANIZ ATION 07/13/2025 [facility] Goals (unrecognized section and content) Goals may be documented in a n alternate sectionGoals may be documented in an alternate sectionGoals may be documented in an alternate sectionGoals may be documented in an alternate sectionGoals may be documented in an alternate sectionGoals may be documented in an alternate sectionGoals may be documented in an alternate sectionGoals may be documented in an alternate sectionGoals may be documented in an alternate sectionGoals may be documented in an alternate sectionGoals may be documented in an alternate sectionGoals may be documented in an alternate sectionGoals may be documented in an alternate sectionGoals may be documented in an alternate sectionGoals may be documented in an alternate section Source Comments (unrecognize d section and content) In the event this informatio n is protected by the Federal Confidentiality of Alcohol and Drug Abuse Patient Records regulations: The Federal rules restrict any use of the information to criminally investigate or prosecute any alcohol or drug abuse patient.[facility] the event this information is protected by the Federal Confidentiality of Alcohol and Drug Abuse Patient Records regulations: The Federal rules restrict any use of the information to criminally investigate or prosecute any alcohol or drug abuse patient.[facility] the event this information is protected by the Federal Confidentiality of Alcohol and Drug Abuse Patient Records regulations: The Federal rules restrict any use of the information to criminally investigate or prosecute any alcohol or drug abuse patient.[facility] the event this information is protected by the Federal Confidentiality of Alcohol and Drug Abuse Patient Records regulations: The Federal rules restrict any use of the information to criminally investigate or prosecute any alcohol or drug abuse patient.[facility] the event this information is protected by the Federal Confidentiality of Alcohol and Drug Abuse Patient Records regulations: The Federal rules restrict any use of the information to criminally investigate or prosecute any alcohol or drug abuse patient.[facility] the event this information is protected by the Federal Confidentiality of Alcohol and Drug Abuse Patient Records regulations: The Federal rules restrict any use of the information to criminally investigate or prosecute any alcohol or drug abuse patient.[facility] the event this information is protected by the Federal Confidentiality of Alcohol and Drug Abuse Patient Records regulations: The Federal rules restrict any use of the information to criminally investigate or prosecute any alcohol or drug abuse patient.[facility] the event this information is protected by the Federal Confidentiality of Alcohol and Drug Abuse Patient Records regulations: The Federal rules restrict any use of the information to criminally investigate or prosecute any alcohol or drug abuse patient.[facility] the event this information is protected by the Federal Confidentiality of Alcohol and Drug Abuse Patient Records regulations: The Federal rules restrict any use of the information to criminally investigate or prosecute any alcohol or drug abuse patient.[facility] the event this information is protected by the Federal Confidentiality of Alcohol and Drug Abuse Patient Records regulations: The Federal rules restrict any use of the information to criminally investigate or prosecute any alcohol or drug abuse patient.[facility] the event this information is protected by the Federal Confidentiality of Alcohol and Drug Abuse Patient Records regulations: The Federal rules restrict any use of the information to criminally investigate or prosecute any alcohol or drug abuse patient.[facility] Hospital[facility] the event this information is protected by the Federal Confidentiality of Alcohol and Drug Abuse Patient Records regulations: The Federal rules restrict any use of the information to criminally investigate or prosecute any alcohol or drug abuse patient.[facility] Reason for Visit (unrecogniz ed section and content) Reason Comments New Pain Reason Comments Consult Reason Comments Appointment Reason Comments Post Op L RTSA DOS 03/19/2022 Dr Ortiz Post Op Reason Comments Established Patient Follow Up Post Op Reason Onset Date Comments Appointment Request 07/02/2024 Reason Comments Follow-up follow up CT Reason Comments New Patient Pt is here to follow up from a hospital admission on 07/06/24. Pt was diagnosed with a PE. He says he is doing a lot better. Reason Comments Follow-up Reason Onset Date Comments Appointment 10/08/2024 Care Teams (unrecognized sec tion and content) Jewel Bearing Grinder Relationship Specialty Start Date End Date Jair Henning MD [address] [place] [address] PCP - General Family Practice 12/16/17 Jewel Bearing Grinder Relationship Specialty Start Date End Date Jair Henning MD [address] [place] [address] PCP - General Family Practice 12/16/17 Jewel Bearing Grinder Relationship Specialty Start Date End Date Jair Henning MD [address] [place], [place] [id number] PCP - General Family Practice 12/16/17 Jewel Bearing Grinder Relationship Specialty Start Date End Date Jair Henning MD [address] [place], [place] [id number] PCP - General Family Practice 12/16/17 Jewel Bearing Grinder Relationship Specialty Start Date End Date Jair Henning MD [address] [place] [address] PCP - General Family Practice 12/16/17 Jewel Bearing Grinder Relationship Specialty Start Date End Date Jair Henning MD [address] [place] [address] PCP - General Family Practice 12/16/17 Jewel Bearing Grinder Relationship Specialty Start Date End Date Jair Henning MD [address] [place] [address] PCP - General Family Practice 12/16/17 Jewel Bearing Grinder Relationship Specialty Start Date End Date Jair Henning MD [address] [place] [address] PCP - General Family Medicine 12/16/17 Team Status: Active Member Role Status Dates Dr. Jair Henning MD Family Provider Active Dr. Aidan Argueta MD Primary Care Provider Active Team Status: Inactive Member Role Status Dates Dr. Jair Henning MD Primary Care Provider, Referring Provider Active Dr. Kameron Saha DO Attending Provider Active Team Status: Inactive Member Role Status Dates Dr. Jair Henning MD Primary Care Provider Active Dr. Frandy Gage MD Attending Provider Active Team Status: Inactive Member Role Status Dates Dr. Aidan Argueta MD Primary Care Provider, Attend ing Provider Active Team Status: Inactive Member Role Status Dates Dr. Aidan Argueta MD Primary Care Provider Active Armando Umaña MD Attending Provider Active Team Status: Inactive Member Role Status Dates Dr. Aidan Argueta MD Primary Care Pr ovider, Attending Provider, Referring Provider Active Jewel Bearing Grinder Relationship Specialty Start Date End Date Aidan Argueta MD [address] [place] [address] PCP - General Family Medicine 06/26/24 Jewel Bearing Grinder Relationship Specialty Start Date End Date Aidan Argueta MD [address] [place] [address] PCP - General Family Medicine 06/26/24 Jewel Bearing Grinder Relationship Specialty Start Date End Date Aidan Argueta MD [address] [place] [address] PCP - General Family Medicine 06/26/24 Jewel Bearing Grinder Relationship Specialty Start Date End Date Aidan Argueta MD [address] [place] [address] PCP - General Family Medicine 06/26/24 Jewel Bearing Grinder Relationship Specialty Start Date End Date Aidan Argueta MD [address] [place] [address] PCP - General Family Medicine 06/26/24 Jewel Bearing Grinder Relationship Specialty Start Date End Date Aidan Argueta MD [address] [place] [address] PCP - General Family Medicine 06/26/24 Jewel Bearing Grinder Relationship Specialty Start Date End Date Aidan Argueta MD [address] [place] [address] PCP - General Family Medicine 06/26/24 Team Status: Inactive Member Role Status Dates Dr. Aidan Argueta MD Primary Care Provider Active Start: July 26, 2024 End: July 26, 2024 Dr. Aidan Argueta MD Referring Provider Active Start: July 26, 2024 End: July 26, 2024 Jair Gu MD Attending Provider Active St art: July 26, 2024 End: July 26, 2024 Team Status: Inactive Member Role Status Dates Dr. Aidan Argueta MD Primary Care Provider Active Start: July 26, 2024 End: July 26, 2024 Dr. Frandy Gage MD Attending Provider Active S tart: July 26, 2024 End: July 26, 2024 Team Status: Inactive Member Role Status Dates Dr. Aidan Argueta MD Primary Care Provider Active Start: September 23, 2024 End: September 23, 2024 Dr. Aidan Argueta MD Referring Provider Active Start: September 23, 2024 End: September 23, 2024 Aidan Pratt NP [employer]-C Attending Provider Active S tart: September 23, 2024 End: September 23, 2024 Team Status: Inactive Member Role Status Dates Dr. Aidan Argueta MD Primary Care Provider Active Start: September 24, 2024 End: September 24, 2024 Dr. Aidan Argueta MD Attending Provider Active Start: September 24, 2024 End: September 24, 2024 Dr. Aidan Argueta MD Referring Provider Active Start: September 24, 2024 End: September 24, 2024 Team Status: Inactive Member Role Status Dates Dr. Aidan Argueta MD Primary Care Provider Active Start: November 05, 2024 End: November 05, 2024 Dr. Aidan Argueta MD Attending Provider Active Start: November 05, 2024 End: November 05, 2024 Dr. Aidan Argueta MD Referring Provider Active Start: November 05, 2024 End: November 05, 2024 Team Status: Active Member Role/Relationship Status Dates Dr. Aidan Argueta MD Primary Care Provider Active Team Status: Inactive Member Role/Relationship Status Dates Dr. Aidan Argueta MD Primary Care Provider Active Start: May 02, 2025 End: May 02, 2025 Dr. Aidan Argueta MD Attending Provider Active Start: May 02, 2025 End: May 02, 2025 Dr. Aidan Argueta MD Referring Provider Active Start: May 02, 2025 End: May 02, 2025 Team Status: Active Member Role/Relationship Status Dates Dr. Aidan Argueta MD Primary care physician Active Team Status: Inactive Member Role/Relationship Status Dates Dr. Aidan Argueta MD Primary care physician Active Start: May 02, 2025 End: May 02, 2025 Dr. Aidan Argueta MD Attending physician Active Start: May 02, 2025 End: May 02, 2025 Dr. Aidan Argueta MD Referring Provider Active Start: May 02, 2025 End: May 02, 2025 Team Status: Inactive Member Role/Relationship Status Dates Dr. Aidan Argueta MD Primary care physician Active Start: May 20, 2025 End: May 20, 2025 Dr. Aidan Argueta MD Attending physician Active Start: May 20, 2025 End: May 20, 2025 Dr. Aidan Argueta MD Referring Provider Active Start: May 20, 2025 End: May 20, 2025 Team Status: Active Member Role/Relationship Status Dates Dr. Aubrey Suarez MD Attending physician Active Start: May 20, 2025 Dr. Aidan Argueta MD Referring Provider Active Start: May 20, 2025 Team Status: Inactive Member Role/Relationship Status Dates Dr. Aidan Argueta MD Primary care physician Active Start: June 14, 2025 End: June 14, 2025 Dr. Aidan Argueta MD Referring Provider Active Start: June 14, 2025 End: June 14, 2025 Dr. Kostas Borja MD Attending physician Active Start: June 14, 2025 End: June 14, 2025 Team Status: Inactive Member Role/Relationship Status Dates Dr. Aidan Argueta MD Primary care physician Active Start: June 14, 2025 End: June 14, 2025 Dr. Frandy Gage MD Attending physician Active Start: June 14, 2025 End: June 14, 2025 Team Status: Active Member Role/Relationship Status Dates Dr. Aidan Argueta MD Primary care physician Active Start: June 20, 2025 Dr. Kostas Borja MD Attending physician Active Start: June 20, 2025 Dr. Kostas Borja MD Referring Provider Active Start: June 20, 2025 Team Status: Active Member Role/Relationship Status Dates Dr. Aidan Argueta MD Primary care physician Active Start: June 28, 2025 Dr. Kostas Borja MD Attending physician Active Start: June 28, 2025 Dr. Kostas Borja MD Referring Provider Active Start: June 28, 2025 Scheduled Active and Recently Administ ered Medications (unrecognized section and content) Medication Order 06/25/2024 06/26/2024 06/27/2024 atorvastatin (Lipitor) tablet 10 mg 10 mg, Oral, Nightly, First dose on Tue06/26/24 at 2100 2042 (Given - Provider: Solomon Jenkins, YESSENIA) bacitracin ointment Topical, 3 times daily, First dose on Tue06/26/24 at 1615 1615 (Given - Provider: Laura Hu RN)2100 (Given - Provider: Solomon Jenkins, YESSENIA) 0900 (Given - Provider: Ming Das, YESSENIA)1400 (Canceled Entry - Provider: Automatic Discharge Provider - Comment: Automatically canceled at discontinue of medication order) Insulin Lispro (Humalog) injection 0-12 Units(Linked Group 1) 0-12 Units, SubCUTAneous, 3 times daily with meals, First dose on Tue06/26/24 at 1700, Medium Dose Correction Algorithm Glucose: Dose: LESS than 139 No Insulin 140-199 2 Unit 200-249 4 Units 250-299 6 Units 300-349 8 Units 350-400 10 Units Above 400 12 Units 1715 (Given - Provider: Laura Hu RN) 0818 (Given - Provider: Ming Das, YESSENIA)1211 (Given - Provider: Ming Das, YESSENIA) Insulin Lispro (Humalog) injection 0-12 Units(Linked Group 1) 0-12 Units, SubCUTAneous, Nightly, First dose on Tue06/26/24 at 2100, If continuous tube feedings/TPN/NPO, give correction dose based on result, no reduction in dose. If eating or bolus tube feeding: Medium Dose Correction Algorithm Glucose: Dose: LESS than 139 No Insulin 140-199 2 Unit 200-249 4 Units 250-299 6 Units 300-349 8 Units 350-400 10 Units Above 400 12 Units 2043 (Given - Provider: Solomon Jenkins, YESSENIA) ipratropium-albuterol (Duo-Neb) 0.5-2.5 mg/3 mL nebulizer solution 3 mL (CANCELED) 3 mL, Nebulization, 3 times daily, First dose on Tue06/26/24 at 2300 2305 (Given - Provider: Elizabeth Alonso RCP) 0857 (Given - Provider: Morenita Moreno RCP) levETIRAcetam (Keppra) tablet 500 mg 500 mg, Oral, 2 times daily, First dose on Tue06/26/24 at 2100, For 7 days, Do not crush or chew. 2041 (Given - Provider: Solomon Jenkins RN) 0818 (Given - Provider: Ming Das RN) Lidocaine 4 % patch 1 patch 1 patch, TransDERmal, Administer over 12 Hours, Daily, First dose on Tue06/27/24 at 0900, Apply patch to R chest. Patch may remain in place for up to 12 hours in any 24 hour period. 0818 (Medication Dennis lied - Provider: Ming Das RN)1350 (Due: Medication Removed - Provider: Automatic Discharge Provider - Comment: Time automatically adjusted from order being discontinued) mupirocin (Bactroban) 2 % ointment 1 Application 1 Application, Nasal, 2 times daily, First dose on Tue06/26/24 at 2100, For 5 days, Indications: MRSA Nasal Decolonization 2042 (Given - Provider: Solomon Jenkins RN) 0818 (Given - Provider: Ming Das RN) sodium chloride 0.9% (NS) flush 30 mL 30 mL, IntraVENous, Every 6 hours, First dose on Tue06/26/24 at 1515 1515 (Not Given - Provider: Laura Hu RN - Reason: IV Fluids Infusing)2115 (Given - Provider: Solomon Jenkins RN) 0315 (Not Given - Provider: Solomon Jenkins RN - Reason: IV Fluids Infusing)0915 (Given - Provider: Ming Das RN)1515 (Canceled Entry - Provider: Automatic Discharge Provider - Comment: Automatically canceled at discontinue of medication order) tamsulosin (Flomax) 24 hr capsule 0.4 mg 0.4 mg, Oral, Nightly, First dose on Tue06/26/24 at 2100, Do not crush, chew, or split. 2042 (Given - Provider: Solomon Jenkins, YESSENIA) valsartan (Diovan) tablet 160 mg 160 mg, Oral, 2 times daily, First dose on Tue06/26/24 at 2100 2042 (Given - Provider: Solomon Jenkins RN) 0818 (Given - Provider: Ming Das RN) Continuous Medication Order 06/25/2024 06/26/2024 06/27/2024 sodium chloride 0.9 % infusion (CANCELED) 75 mL/hr, IntraVENous, Continuous, Starting on Tue06/26/24 at 1515 1536 (New Bag - Provider: Chet Wolf RN) 0608 (New Bag - Provider: Solomon Jenkins RN) PRN Medication Order 06/25/2024 06/26/2024 06/27/2024 acetaminophen (Tylenol) tablet 1,000 mg 1,000 mg, Oral, Every 8 hours PRN, mild pain (1-3), moderate pain (4-6), headaches, fever, Starting on Tue06/26/24 at 1501, Maximum dose of acetaminophen is 4000 mg from all sources in 24 hours. 0032 (Given - Provid er: Solomon Jenkins RN) dextrose 5 % infusion 100 mL/hr, IntraVENous, PRN, Blood sugar less than 70mg/dL, Starting on Tue06/26/24 at 1621, Start infusion following administration of dextrose 50% or glucagon. dextrose 50 % solution 12.5 g 12.5 g, IntraVENous, PRN, low blood sugar, Blood glucose less than 70 mg/dL and patient NOT ALERT or NPO., Starting on Tue06/26/24 at 1621, If patient does not respond within 5 minutes, repeat dose x1. Start D5W at 100 mL/hour until ordering provider can be reached. Repeat blood glucose in 15 minutes. If blood glucose is less than 70 mg/dL, repeat treatment and recheck blood glucose in 15 minutes x2. If using Glucostabilizer, dose as instructed per system. glucagon (human recombinant) injection 1 mg 1 mg, IntraMUSCular, PRN, low blood sugar, Blood glucose less than 70 mg/dL and patient NOT ALERT or NPO and does not have IV access., Starting on Tue06/26/24 at 1621, After administration, attempt intravenous access and start D5W at 100 mL/hr. Repeat blood glucose in 15 minutes x2 and notify provider. glucose oral gel 15 g 15 g, Oral, As needed, low blood sugar, Starting on Tue06/26/24 at 1621, If blood glucose less than 50 mg/dL and patient ALERT and NOT NPO, give 2 tubes glucose gel. If blood glucose less than 70 mg/dL and patient ALERT and NOT NPO, give 1 tube glucose gel. Repeat blood glucose in 15 minutes. If blood glucose is less than 70 mg/dL, repeat treatment and recheck blood glucose in 15 minutes x2 and notify provider. hydrALAZINE (Apresoline) injection 10 mg 10 mg, IntraVENous, Every 10 min PRN, high blood pressure, 2nd line for SBP goals <150, hold for HR > 95, Starting on Tue06/26/24 at 1502 iopamidol (Isovue-370) 76 % injection 75 mL (COMPLETED) 75 mL, IntraVENous, IMG once PRN, contrast, Starting on Tue06/27/24 at 0511, For 1 dose 0512 (Given - Provid er: Patricia Real, RT (R)(CT)) ipratropium-albuterol (Duo-Neb) 0.5-2.5 mg/3 mL nebulizer solution 3 mL 3 mL, Nebulization, Every 4 hours PRN, wheezing, Starting on Tue06/27/24 at 0915 labetalol (Normodyne,Trandate) injection 10 mg 10 mg, IntraVENous, Every 10 min PRN, high blood pressure, 1st line for SBP goals <150, hold for HR <60, Starting on Tue06/26/24 at 1502 naloxone (Narcan) injection 0.4 mg 0.4 mg, IntraVENous, Every 5 min PRN, opioid reversal, respiratory depression, Starting on Tue06/26/24 at 1525, +++ For RR <10, pinpoint pupils, over sedation for opioid reversal - MUST notify coconut cooker provider immediately after first dose, may give IM or SQ if no IV access +++ ondansetron (Zofran) injection 4 mg(Linked Group 2) 4 mg, IntraVENous, Every 6 hours PRN, nausea, vomiting, Starting on Tue06/26/24 at 1457, 1st Line. Give IV if patient is unable to take orally. If inadequate response within 60 minutes, proceed to next-line agent or contact provider if no further options ordered. 1607 (Given - Provider: Laura Hu RN) ondansetron ODT (Zofran-ODT) disintegrating tablet 4 mg(Linked Group 2) 4 mg, Oral, Every 8 hours PRN, nausea, vomiting, Starting on Tue06/26/24 at 1457, 1st Line. If inadequate response within 60 minutes, proceed to next-line agent or contact provider if no further options ordered. Patient should allow tablet to dissolve on tongue. Do not remove from blister pack until just before administering. 1607 (See Alternative - Provider: Laura Hu RN) oxyCODONE (Roxicodone) immediate release tablet 2.5 mg(Linked Group 3) 2.5 mg, Oral, Every 4 hours PRN, moderate pain (4-6), Starting on Tue06/26/24 at 1501 oxyCODONE (Roxicodone) immediate release tablet 5 mg(Linked Group 3) 5 mg, Oral, Every 4 hours PRN, severe pain (7-10), Starting on Tue06/26/24 at 1501 polyethylene glycol (PEG) 3350 (Miralax) packet 17 g 17 g, Oral, Daily PRN, constipation, Starting on Tue06/26/24 at 1502, 1st line for treatment of constipation - give scheduled if no bowel movement in past 24 hours. sodium chloride 0.9% (NS) flush 30 mL 30 mL, IntraVENous, PRN, line care, Starting on Tue06/26/24 at 1457, After every IV line use sodium chloride 0.9% (NS) flush 30 mL 30 mL, IntraVENous, PRN, line care, Starting on Tue06/26/24 at 1457 Linked Groups Order Group 1: Insulin Lispro (Humalog) injection 0-12 UnitsJump to med 0-12 Units, SubCUTAneous, 3 times daily with meals, First dose on Tue06/26/24 at 1700, Medium Dose Correction Algorithm Glucose: Dose: LESS than 139 No Insulin 140-199 2 Unit 200-249 4 Units 250-299 6 Units 300-349 8 Units 350-400 10 Units Above 400 12 Units And Insulin Lispro (Humalog) injection 0-12 UnitsJump to med 0-12 Units, SubCUTAneous, Nightly, First dose on Tue06/26/24 at 2100, If continuous tube feedings/TPN/NPO, give correction dose based on result, no reduction in dose. If eating or bolus tube feeding: Medium Dose Correction Algorithm Glucose: Dose: LESS than 139 No Insulin 140-199 2 Unit 200-249 4 Units 250-299 6 Units 300-349 8 Units 350-400 10 Units Above 400 12 Units Group 2: ondansetron ODT (Zofran-ODT) disintegrating tablet 4 mgJump to med 4 mg, Oral, Every 8 hours PRN, nausea, vomiting, Starting on Tue06/26/24 at 1457, 1st Line. If inadequate response within 60 minutes, proceed to next-line agent or contact provider if no further options ordered. Patient should allow tablet to dissolve on tongue. Do not remove from blister pack until just before administering. Or ondansetron (Zofran) injection 4 mgJump to med 4 mg, IntraVENous, Every 6 hours PRN, nausea, vomiting, Starting on Tue06/26/24 at 1457, 1st Line. Give IV if patient is unable to take orally. If inadequate response within 60 minutes, proceed to next-line agent or contact provider if no further options ordered. Group 3: oxyCODONE (Roxicodone) immediate release tablet 2.5 mgJump to med 2.5 mg, Oral, Every 4 hours PRN, moderate pain (4-6), Starting on Tue06/26/24 at 1501 Or oxyCODONE (Roxicodone) immediate release tablet 5 mgJump to med 5 mg, Oral, Every 4 hours PRN, severe pain (7-10), Starting on Tue06/26/24 at 1501 Scheduled Medication Order 07/10/2024 07/11/2024 07/12/2024 acetaminophen (Tylenol) tablet 1,000 mg 1,000 mg, Oral, Every 8 hours, First dose on Tue07/08/24 at 2300, Maximum dose of acetaminophen is 4000 mg from all sources in 24 hours. 0608 (Given - Provider: Dora Dennis RN)1500 (Not Given - Provider: Rickie Adam RN - Reason: Patient/family refused)2300 (Given - Provider: Gregory Jaeger RN) 0845 (Given - Provider: Gayathri Hernandez RN)1655 (Given - Provider: Gayathri Hernandez RN) 0030 (Given - Provider: Nai Quezada, RN)0632 (Given - Provider: Nai Quezada, RN)1447 (Given - Provider: Kim Guzman, YESSENIA) apixaban (Eliquis) tablet 5 mg 5 mg, Oral, 2 times daily, First dose on Tue07/09/24 at 0645, Anticoagulant 0915 (Given - Provider: Paris Loredo RN)2019 (Given - Provider: Gregory Jaeger RN) 0845 (Given - Provider: Gayathri Hernandez RN)2037 (Given - Provider: Minerva Lorenz RN) 0958 (Given - Provider: Kim Guzman RN) atorvastatin (Lipitor) tablet 10 mg 10 mg, Oral, Nightly, First dose on Tue07/09/24 at 2100 2019 (Given - Provider: Gregory Jaeger RN) 2037 (Given - Provider: Minerva Lorenz, YESSENIA) dapagliflozin (Farxiga) tablet 10 mg 10 mg, Oral, Daily, First dose on Tue07/11/24 at 1130, Indications: Type 2 Diabetes Mellitus 1211 (Given - Provider: Gayathri Hernandez RN) 1101 (Given - Provider: Kim Guzman, YESSENIA) glipiZIDE (Glucotrol) tablet 2.5 mg 2.5 mg, Oral, Daily before breakfast, First dose on Sue 07/12/24 at 0600, Substituted for glimepiride (Amaryl). 0959 (Given - Provider: Kim Guzman RN) Insulin Lispro (Humalog) injection 0-12 Units (CANCELED)(Linked Group 1) 0-12 Units, SubCUTAneous, 3 times daily with meals, First dose on Tue07/07/24 at 0800, Medium Dose Correction Algorithm Glucose: Dose: LESS than 139 No Insulin 140-199 2 Unit 200-249 4 Units 250-299 6 Units 300-349 8 Units 350-400 10 Units Above 400 12 Units 0916 (Given - Provider: Paris Loredo RN - Comment: bg [id number]) Insulin Lispro (Humalog) injection 0-18 Units 0-18 Units, SubCUTAneous, 3 times daily with meals, First dose on Tue07/10/24 at 1200, High Dose Correction Algorithm Glucose: Dose: LESS than 139 No Insulin 140-199 3 Unit 200-249 6 Units 250-299 9 Units 300-349 12 Units 350-400 15 Units Above 400 18 Units 1232 (Not Given - Provider: Rickie Adam RN - Reason: Other - Comment: BGT [id number])1825 (Not Given - Provider: Rickie Adam RN - Reason: Order parameters not met) 0730 (Not Given - Provider: Gayathri Hernandez RN - Reason: Order parameters not met)1200 (Given - Provider: Gayathri Hernandez RN)1700 (Not Given - Provider: Gayathri Hernandez RN - Reason: Order parameters not met) 0901 (Given - Provider: Patito King RN - Comment: BS [phone])1222 (Given - Provider: Patito King RN - Comment: BS [phone])1700 (Canceled Entry - Provider: Automatic Discharge Provider - Comment: Automatically canceled at discontinue of medication order) mupirocin (Bactroban) 2 % ointment 1 Application () 1 Application, Nasal, 2 times daily, First dose on Tue07/06/24 at 2315, For 5 days, Indications: MRSA Nasal Decolonization 0919 (Given - Provider: Paris Loredo RN)2100 (Given - Provider: Gregory Jaeger RN) 1000 (Given - Provider: Gayathri Hernandez RN) piperacillin-tazobactam (Zosyn) IVPB 4,500 mg 4,500 mg, IntraVENous, at 33.3 mL/hr, Administer over 3 Hours, Every 6 hours, First dose on Tue07/10/24 at 0615, Dosage or interval has been adjusted per [facility] Dosing policy. premix bag, Suspected Indication (Select all that apply): Sepsis of Unknown Etiology 0640 (New Bag - Provider: Dora Dennis RN)0940 (Stopped - Provider: Paris Loredo RN)1158 (New Bag - Provider: Rickie Adam, YESSENIA)1458 (Stopped - Provider: Rickie Adam RN)1722 (New Bag - Provider: Rickie Adam RN)2022 (Stopped - Provider: Gregory Jaeger RN)2300 (New Bag - Provider: Gregory Jaeger RN) 0200 (Stopped - Provider: Gregory Jaeger RN)0501 (New Bag - Provider: Gregory Jaeger RN)0801 (Stopped - Provider: Gayathri Hernandez RN)1211 (New Bag - Provider: Gayathri Hernandez RN)1511 (Stopped - Provider: Gayathri Hernandez RN)1801 (New Bag - Provider: Gayathri Hernandez RN)2101 (Stopped - Provider: Minerva Lorenz RN) 0046 (New Bag - Provider: Nai Quezada RN)0346 (Stopped - Provider: Nai Quezada RN)0632 (New Bag - Provider: Nai Quezada RN)0932 (Stopped - Provider: Kim Guzman RN)1117 (New Bag - Provider: Kim Guzman, YESSENIA)1417 (Stopped - Provider: Kim Guzman RN)1815 (Canceled Entry - Provider: Automatic Discharge Provider - Comment: Automatically canceled at discontinue of medication order) polyethylene glycol (PEG) 3350 (Miralax) packet 17 g 17 g, Oral, Daily, First dose (after last modification) on Tue07/09/24 at 0900, 1st line for treatment of constipation - give scheduled if no bowel movement in past 24 hours. 0914 (Given - Provider: Paris Loredo RN) 0900 (Not Given - Provider: Gayathri Hernandez RN - Reason: Patient/family refused) 0900 (Not Given - Provider: Kim Guzman RN - Reason: Patient/family refused) sennosides (Senokot) tablet 17.2 mg 17.2 mg (2 tablet), Oral, 2 times daily, First dose (after last modification) on Tue07/10/24 at 2100 2019 (Given - Provider: Gregory Jaeger RN) 0900 (Not Given - Provider: Gayathri Hernandez RN - Reason: Patient/family refused)2037 (Not Given - Provider: Minerva Lorenz RN - Reason: Patient/family refused) 0900 (Not Given - Provider: Kim Guzman RN - Reason: Patient/family refused) tamsulosin (Flomax) 24 hr capsule 0.4 mg 0.4 mg, Oral, Nightly, First dose on Tue07/11/24 at 2100, Do not crush, chew, or split. 2037 (Given - Provider: Minerva Lorenz RN) valsartan (Diovan) tablet 160 mg 160 mg, Oral, Daily, First dose (after last modification) on Tue07/09/24 at 1200 0921 (Given - Provider: Paris Loredo RN) 0845 (Given - Provider: Gayathri Hernandez RN) 1101 (Given - Provider: Kim Guzman RN) vancomycin IVPB 1250 mg in 250 mL NS (premix) (CANCELED) 1,250 mg, IntraVENous, at 166.7 mL/hr, Administer over 90 Minutes, Every 12 hours, First dose on Tue07/10/24 at 0615, premix bag, Suspected Indication (Select all that apply): Sepsis of Unknown Etiology 0654 (New Bag - Provider: Dora Dennis RN)0824 (Stopped - Provider: Paris Loredo RN) PRN Medication Order 07/10/2024 07/11/2024 07/12/2024 bisacodyl (Dulcolax) suppository 10 mg 10 mg, Rectal, PRN, constipation, Starting on Tue07/11/24 at 1130 dextrose 5 % infusion 100 mL/hr, IntraVENous, PRN, Blood sugar less than 70mg/dL, Starting on 07/07/24 at 0014, Start infusion following administration of dextrose 50% or glucagon. dextrose 50 % solution 12.5 g 12.5 g, IntraVENous, PRN, low blood sugar, Blood glucose less than 70 mg/dL and patient NOT ALERT or NPO., Starting on 07/07/24 at 0014, If patient does not respond within 5 minutes, repeat dose x1. Start D5W at 100 mL/hour until ordering provider can be reached. Repeat blood glucose in 15 minutes. If blood glucose is less than 70 mg/dL, repeat treatment and recheck blood glucose in 15 minutes x2. If using Glucostabilizer, dose as instructed per system. glucagon (human recombinant) injection 1 mg 1 mg, IntraMUSCular, PRN, low blood sugar, Blood glucose less than 70 mg/dL and patient NOT ALERT or NPO and does not have IV access., Starting on 07/07/24 at 0014, After administration, attempt intravenous access and start D5W at 100 mL/hr. Repeat blood glucose in 15 minutes x2 and notify provider. glucose oral gel 15 g 15 g, Oral, As needed, low blood sugar, Starting on 07/07/24 at 0014, If blood glucose less than 50 mg/dL and patient ALERT and NOT NPO, give 2 tubes glucose gel. If blood glucose less than 70 mg/dL and patient ALERT and NOT NPO, give 1 tube glucose gel. Repeat blood glucose in 15 minutes. If blood glucose is less than 70 mg/dL, repeat treatment and recheck blood glucose in 15 minutes x2 and notify provider. hydrALAZINE (Apresoline) injection 10 mg 10 mg, IntraVENous, Every 4 hours PRN, high blood pressure, 2nd line SBP >160, hold for HR >110, Starting on 07/07/24 at 2020 ipratropium-albuterol (Duo-Neb) 0.5-2.5 mg/3 mL nebulizer solution 3 mL 3 mL, Nebulization, 4 times daily PRN, wheezing, Starting on Tue07/08/24 at 1300 labetalol (Normodyne,Trandate) injection 10 mg 10 mg, IntraVENous, Every 4 hours PRN, high blood pressure, 1st line SBP >160, hold for HR <60, Starting on 07/07/24 at 2020 naloxone (Narcan) injection 0.4 mg 0.4 mg, IntraVENous, Every 5 min PRN, opioid reversal, respiratory depression, Starting on Tue07/06/24 at 2306, +++ For RR <10, pinpoint pupils, over sedation for opioid reversal - MUST notify coconut cooker provider immediately after first dose, may give IM or SQ if no IV access +++ ondansetron (Zofran) injection 4 mg(Linked Group 2) 4 mg, IntraVENous, Every 6 hours PRN, nausea, vomiting, Starting on Tue07/06/24 at 2257, 1st Line. Give IV if patient is unable to take orally. If inadequate response within 60 minutes, proceed to next-line agent or contact provider if no further options ordered. ondansetron ODT (Zofran-ODT) disintegrating tablet 4 mg(Linked Group 2) 4 mg, Oral, Every 8 hours PRN, nausea, vomiting, Starting on Tue07/06/24 at 2257, 1st Line. If inadequate response within 60 minutes, proceed to next-line agent or contact provider if no further options ordered. Patient should allow tablet to dissolve on tongue. Do not remove from blister pack until just before administering. oxyCODONE (Roxicodone) immediate release tablet 10 mg(Linked Group 3) 10 mg, Oral, Every 4 hours PRN, severe pain (7-10), Starting on Tue07/06/24 at 2300 oxyCODONE (Roxicodone) immediate release tablet 5 mg(Linked Group 3) 5 mg, Oral, Every 4 hours PRN, moderate pain (4-6), Starting on Tue07/06/24 at 2300 sodium chloride 0.9 % infusion 5-250 mL/hr, IntraVENous, PRN, if patient receiving piggyback infusions and maintenance fluids are not ordered OR KVO fluids to protect IV site / prevent frequent line interruptions / long duration, Starting on Tue07/06/24 at 2257, For piggyback infusion, administer at same rate as piggyback for a total of 25 mL. Enter 25 mL into dose field and piggyback rate into rate field of order. If piggyback is infusing at a rate less than 100 mL/hr, enter 25 mL into dose field and 100 mL/hr into rate field of order. For KVO fluids, enter rate of 20 mL/hr or less into rate field of order. Linked Groups Order Group 1: Insulin Lispro (Humalog) injection 0-12 Units (CANCELED)Jump to med 0-12 Units, SubCUTAneous, 3 times daily with meals, First dose on Tue07/07/24 at 0800, Medium Dose Correction Algorithm Glucose: Dose: LESS than 139 No Insulin 140-199 2 Unit 200-249 4 Units 250-299 6 Units 300-349 8 Units 350-400 10 Units Above 400 12 Units And Insulin Lispro (Humalog) injection 0-12 Units (CANCELED) 0-12 Units, SubCUTAneous, Nightly, First dose on Tue07/07/24 at 0015, If continuous tube feedings/TPN/NPO, give correction dose based on result, no reduction in dose. If eating or bolus tube feeding: Medium Dose Correction Algorithm Glucose: Dose: LESS than 139 No Insulin 140-199 2 Unit 200-249 4 Units 250-299 6 Units 300-349 8 Units 350-400 10 Units Above 400 12 Units Group 2: ondansetron ODT (Zofran-ODT) disintegrating tablet 4 mgJump to med 4 mg, Oral, Every 8 hours PRN, nausea, vomiting, Starting on Tue07/06/24 at 2257, 1st Line. If inadequate response within 60 minutes, proceed to next-line agent or contact provider if no further options ordered. Patient should allow tablet to dissolve on tongue. Do not remove from blister pack until just before administering. Or ondansetron (Zofran) injection 4 mgJump to med 4 mg, IntraVENous, Every 6 hours PRN, nausea, vomiting, Starting on Tue07/06/24 at 2257, 1st Line. Give IV if patient is unable to take orally. If inadequate response within 60 minutes, proceed to next-line agent or contact provider if no further options ordered. Group 3: oxyCODONE (Roxicodone) immediate release tablet 5 mgJump to med 5 mg, Oral, Every 4 hours PRN, moderate pain (4-6), Starting on Tue07/06/24 at 2300 Or oxyCODONE (Roxicodone) immediate release tablet 10 mgJump to med 10 mg, Oral, Every 4 hours PRN, severe pain (7-10), Starting on Tue07/06/24 at 2300 FOR RECORDS PERTAINING TO PATIENTS WHO ARE OR HAVE BEEN ENROLLED IN A CHEMICAL DEPENDENCY/SUBSTANCEABUSE PROGRAM, SOME INFORMATION MAY BE OMITTED. This clinical summary was aggregated from multiple sources. Caution should be exercised in using it in the provision of clinical care. This summary normalizes information from multiple sources, and as a consequence, information in this document may materially change the coding, format and clinical context of patient data. In addition, data may be omitted in some cases. CLINICAL DECISIONS SHOULD BE BASED ON THE PRIMARY CLINICAL RECORDS. Results [facility]. provides no warranty or guarantee of the accuracy or completeness of information in this document.
[2025-07-16 10:29] LABS: PSA,Total- Diagnostic 1.95 ng/mL (0.00-4.00)
== END | disposition home or self-care (01) ==
LOC: MTLAB 07:03
PROVIDERS: PCP Family Medicine; Referring Provider Nurse Practitioner; Visit Provider Nurse Practitioner
DX: R97.20 Elevated prostate specific antigen [PSA] (principal)
CPT/HCPCS: 36415; 84153

== ENCOUNTER → 2025-07-17 | Outpatient (CLI) | payer MEDICARE, OTHER, SELFPAY ==
--- OUTSIDE RECORDS SUMMARY | 2025-07-17 07:17 | XMS RPT_ITS | CCD ---
Author Organization [facility] CliniSyme Care Team Providers Care Merchandising Representative Name Role Phone JAIR HENNING Unavailable Unavailable [...] Kanu IBANEZ, Jair Brown Primary Care Provider Kanu IBANEZ, Jair Brown Primary Care [...] Care Unavailable BERT ORTIZ Admitting Unavailab le FRDEI, BERT MULTANI Attending Unavailab le KANU, JAIR BROWN Primary Care Unavailable JAIR PICKENS DDS Consulting Unavailable KAMERON SAHA DO Attending Unavailable KAMERON SAHA DO Primary Care Unavailable KAMERON SAHA DO Admitting Unavailable JAIR PICKENS DDLauren Referring Unavailable PROVIDER, UNKNOWN Consulting Unavailable Kanu, Dr. Corrales Primary Care Provider Kanu, Dr. Corrales Referring Provider Dr. Kameron Saha Attending Provider Dr. Frandy Gage Attending Provider Aidan Argueta MD Primary Care Provider GODFREY MYERS Attending Unavailable AIDAN ARGUETA Primary Care Unavailable NONE, PCP Referring Unavailable TIFFANY ZARAGOZA Consulting Unava ilable DINAA STOVALL Attending Unavailable DIANA STOVALL Admitting Unavailable [...] Provider Dr. Aidan Argueta MD Referring Provider [phone] Jair Gu MD Attending Provider Dr. Frandy Gage MD Attending Provider Aidan Shelton Attending Provider [phone] Dr. Aidan Argueta MD Attending Provider Dr. Aidan Argueta MD Primary Care Provider Dr. Aidan Argueta MD Attending Provider Dr. Aidan Argueta MD Referring Provider Kendall IBANEZ, Dr. Aidan Mejias Primary Care Physician Kendall IBANEZ, Dr. Aidan Mejias Attending Physician Erick IBANEZ, Dr. Aubrey Hassan Attending Physician Jonh IBANEZ, Dr. Kenyon Attending Physician Too IBANEZ, Dr. Wise Attending Physician Jonh IBANEZ, Dr. Kenyon Referring Provider Schinner, Aidan E Primary Care Unavailable Jair Gu Attending Unavailable Schinner, Aidan E Referring Unavailable Schinner, Aidan E Attending Unavailable Schinner, Aidan E Primary Care Unavailable Schinner, Aidan E Referring Unavailable Schinner, Aidan E Primary Care Unavailable Schinner, Aidan E Attending Unavailable Schinner, Aidan E Referring Unavailable Schinner, Aidan E Primary Care Unavailable Schinner Aidan E Attending Unavailable Schinner, Aidan E Referring Unavailable Frandy Gage Attending Unavailable Schinner, Aidan E Primary Care Unavailable Schinner, Aidan E Primary Care Unavailable Schinner, Aidan E Referring Unavailable Kostas Borja Attending Unavailable Schinner, Aidan E Primary Care Unavailable Schinner Aidan E Attending Unavailable Schinner, Aidan E Referring Unavailable Schinner, Aidan E Primary Care Unavailable Kostas Borja Attending Unavailable Kostas Borja Referring Unavailable Schinner, Aidan E Primary Care Unavailable Kostas Borja Referring Unavailable Kostas Borja Attending Unavailable Schinner, Aidan E Primary Care Unavailable Kostas Borja Attending Unavailable Kostas Borja Referring Unavailable Schinner, Aidan E Primary Care Unavailable GilmanSharon Attending Unavailable GilmanSharon Referring Unavailable Schinner, Aidan E Primary Care Unavailable Kostas Borja Attending Unavailable Schinner, Aidan E Referring Unavailable Too [place] Attending Unavailable Schinner, Adian E Primary Care Unavailable Schinner, Aidan E Primary Care Unavailable Aidan Pratt NP Attending Unavailable Schinner, Aidan E Referring Unavailable Allergies Allergy Classification Reported Allergen(s) Allergy Type Date of Onset Reaction(s) Facility (20 sources) acetaminophen / HYDROcodone; Translations: [HYDROCODONE-ACETAM INOPHEN] Drug Allergy 12-17-19 18 Intolerance, Nausea And Vomiting [facility] (20 sources) sulfamethoxazole / trimethoprim; Translations: [SULFAMETHOXAZOLE-T RIMETHOPRIM] Drug Allergy 12-17-19 18 Rash, Hives [facility] (20 sources) traMADol; Translations: [TRAMADOL] Drug Allergy 12-17-19 18 Unknown, Rash, Dizziness [facility] Comment on above: WEAKNESS (16 sources) HYDROcodone; Translations: [hydrocodone bitartrate] Drug Allergy 02-29-20 18 Nausea [facility] (15 sources) Sulfamethoxazole Drug Allergy 02-29-20 18 Rash [facility] (15 sources) Trimethoprim Drug Allergy 02-29-20 18 Rash [facility] (13 sources) Lisinopril Propensity to adverse reactions 06-26-20 Cough [facility] (1 source) Sulfamethoxazole Drug Allergy 07-04-20 [facility] Repository (1 source) Trimethoprim Drug Allergy 07-04-20 [facility] Medications Current Medications Medication Drug [...] Topical, 3 times daily, First dose on Tu06/26/24 at 1615 calcium carbonate 1250 mg / [...] Comment on above: Take 1 tablet by deevn th every 8 hours as needed. sennosides, fpc 8.6 mg oral tablet (11 sources) Start: [...] 1 tablet by deven th once daily. cephalexin 500 mg oral capsule [...] Comment on above: Take 1 capsule by [facility] twice daily. ferrous sulfate 325 mg [...] 1st line for SBP goals lactobacillus acidophilus [id number] unt / pectin 100 mg oral tablet (15 sources) Start: 05-11-2016 End: 12-16-2017 take 1 tablet by mouth twice daily Acidophilus-Pectin, Howell 1 EACH tablet Discontinued 1 NMA PO TWICE A DAY 20 May 11, 2016 12:00am December 16, 2017 10:32am Start: 05-11-2016 End: 12-16-2017 Acidophilus-Pectin, Howell D iscontinued 1 EACH PO TWICE A [...] take 1 tablet by mouth once daily Multivitamin,Nv-Oojb-Sxwsgpco (Therems-M ) 1 TABLET tablet Discontinued 1 {tbl} PO DAILY October 25, 2014 1:00am July 10, 2015 11:03am Start: 10-25-2014 End: 07-10-2015 take 1 tablet by mouth once daily Multivitamin,Ce-Bmuk-Qaxfhezu (Therems-M ) 1 TABLET tablet Discontinued 1 TABLET PO DAILY October 25, 2014 12:00am July 10, 2015 10:03am Start: 10-25-2014 End: 07-10-2015 take 1 tablet by mouth once daily Multivitamin,Iu-Qbcu-Purtqplf (Therems-M ) 1 TABLET tablet Discontinued 1 [...] intravenously every six hours polyethylene glycol 3350 05822 mg powder for oral solution (11 sources) [...] Episodic Other circulatory disease (2 sources) H/O: [employer] disorder; Translations: [Personal history of other diseases [...] - obesity; Translations: [Obesity, unspecified] 06-14-2025 Chronic Other screening for suspected conditions (not mental disorders or infectious disease) (1 source) Elevated prostate specific antigen [PSA]; Translations: [Elevated prostate specific antigen [PSA]] Onset: 07-16-2025 Episodic Pulmonary heart disease (20 sources) Acute pulmonary [...] [Chronic left shoulder pain] Onset: 03-05-2022 Episodic Pleurisy; pneumothorax; pulmonary collapse (2 sources) Interstitial emphysema; 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] Onset: 12-16-2017 12-18-2017 Episodic Unclassified (1 source) Injury, unspecified, initial encounter Onset: 12-16-2017 Unclassified (14 sources) HX OF HEMATOMA REMOVAL 03-24-2022 Comment on above: 05/21/2016 Urinary tract infections (7 sources) Acute cystitis; Translations: [Acute cystitis without hematuria] Onset: 10-01-2024 09-23-2024 Episodic Results Test Name Value Interpretation Reference Range Facility PSA,Total- [facility] 07-06 PSA, DIAGNOSTIC 1.95 ng/mL Normal 0.00-4.00 [facility] Comment on above: Result Comment: This test was performed using the [facility] tPSA method. Measured values of a patient??sample can vary depending on the testing procedure used. PSA values determined on patient samples by different testing procedures cannot be used interchangeably. If there is a change in PSA assays while monitoring therapy, sequential testing should be performed to confirm baseline values. Performed By: #### L 501.9940 ####[facility] [address] [place], [address] Orthopedic Visit Reporton Orthopedic Visit Report [facility] [address] [place] [address] [address] [place], [place] [address] OFFICE VISIT Date of Service: 07/04/25 MR#: [id number] Acct: [id number] Name: AVERY VASQUEZ Immanuel Rep #: [id number] : 1950 Provider: Dr. Kostas Borja MD Age/Sex: 75/M Location[place] [facility] [place] Status: Signed Intake Vital Signs 06/14/25 08:24 [...] by me, Dr. Kostas Borja MD 07/04/25 7583. Part of today???s visit was documented by [...] is con (more content not included)... Normal [facility] Spine Lumbar (Routine)on Spine Lumbar (Routine) [facility] Imaging Services [address] [place] [address] Spine Lumbar (Routine) MR#: [id number] Acct: [id number] Name: AVERY VASQUEZ Rep #: [id number] : 1950 M 75 From: Avery Blackburn PCP: Dr. Aidan Argueta MD Status: REG CLI Study: Spine Lumbar (Routine) Date of Exam: 06/20/25 Exam# [id number] Ordering Dr: Kostas Borja MD PROCEDURE: SPINE [...] of spinal canal stenosis is noted. L2-3: Tipe-vt-duqsabkz left and moderate right posterior facet and [...] moderately severe spinal canal narrowing is seen. Iatw-pw-oczipnak right and at least moderate left neural [...] with extensive findings as described. Reading Location: [address] CC: Dr. Kostsa Borja MD; Dr. Aidan Argueta MD Chief Projectionist: Signed Normal [facility] Inital Evaluation (1) - PTon 06-18-2025 Inital Evaluation (1) - PT [facility] Physical Therapy [facility] [address] [place] [address] / REHABILITATION SERVICES INITIAL EVALUATION MR#: [id number] Acct: [id number] Name: AVERY VASQUEZ Rep #: [id number] : 1950 75 From: Rangel Rosado PT, Kristopher. T, OCS Referring Dr.: Dr. Kostas Borja MD Status: REG RCR Insurance: MEDICARE PART A B [facility] Patient's Visit Information Visit Information Visit Information: [...] massive hematoma 2014. TKA 2009 ,bilateral TSR .Dr wants new MRI thus ordered. No pain [...] flexibility/ROM and (more content not included)... Normal [facility] L/S Spine Min 4 Viewson 06-05 L/S Spine Min 4 Views [facility] [address] [place] [address] L/S Spine Min 4 Views MR#: [id number] Acct: [id number] Name: AVERY VASQUEZ Rep #: [id number] : 1950 M 75 From: Corrine Florentino PCP: Dr. Aidan Argueta MD Status: DEP AMB Study: L/S Spine Min 4 Views Date of Exam: 06/14/25 Exam# [id number] Ordering Dr: Tanja Haynes PROCEDURE: L/S SPINE [...] findings with low back pain. Reading Location: [id number] CC: TEDDY Godinez; Dr. Aidan Argueta MD Chief Projectionist: Signed Normal [facility] Orthopedic Visit Reporton Orthopedic Visit Report [facility] [address] [place] [address] [place] [address] OFFICE VISIT Date of Service: 06/14/25 MR#: [id number] Acct: [id number] Name: AVERY VASQUEZ Rep #: [id number] : 1950 Provider: Dr. Kostas Borja MD Age/Sex: 75/M Location[place] [facility] [place] Status: Signed Intake Vital Signs 07/26/24 08:23 [...] you fallen in the past year?: Yes [facility] Medical History (Updated 06/14/25 @ 09:43 by [...] made by me, Dr. Kostas Borja MD 06/14/25823. Part of today???s visit was documented by [...] bilateral bl (more content not included)... Normal [facility] Carotid Duplex Ultrasoundon 05-20-2025 Carotid Duplex Ultrasound [facility] Cardi[facility] [address] [place] [address] Carotid Duplex Ultrasound 05/20/25 1105 MR#: [id number] Acct: [id number] Name: AVERY VASQUEZ Rep #: [id number] : 1950 75 From: Aubrey Suarez MD Attending Dr: Dr. Aidan Argueta MD Status: R EG CLI Ordering Dr: Aidan Argueta MD Date: 05/20/25 Location: [facility] Sex: M C Admitted: Reason For Study [...] the left vertebral artery. Procedure Carotid Duplex 34625. This is a Carotid Duplex examination using [...] MD Date Dictated: 05/20/251104 Date Transcribed: 05/20/252054 Chief Projectionist: Signed Normal [facility] Duplex ultrasound of carotid artery reportOrdered By: Aubrey Suarez on 05-20-2025 Study report [facility] Services [address] [place] [address] Carotid Duplex Ultrasound 05/20/251104 MR#: [id number] Acct: [id number] Name: AVERY VASQUEZ Rep #:[id number] : 1950 75 From: Aubrey Suarez MD Attending Dr: Dr. Aidan Argueta MD Status: REG CLI Ordering Dr: Aidan Argueta MD Date: 05/20/25 Location: [facility] Sex: M C Admitted: Reason For [...] the left vertebral artery. Procedure Carotid Duplex 00013. This is a Carotid Duplex examination using [...] Physician: Aidan Argueta Performed By: Mikaela Pratt, RDCS, RVT 05/20/252054 Date _ Aubrey Suarez MD CC: Dr. Aidan Argueta MD ~ Date Dictated: 05/20/251104 Date Transcribed: 05/20/252054 Chief Projectionist: Signed [facility] Work Phone: Absolute lymphocyte countOrd ered By: Aidan Argueta on 05-02-2025 Lymphocytes Auto (Unsp spec) [#/Vol] 1.32 10*3/uL 0.83-4.51 [facility] Absolute neutrophil countOrd ered By: Aidan Argueta on 05-02-2025 Neutrophils (Bld) [#/Vol] 4.8 10*3/uL 2.0-7.7 [facility] Anion gap in Serum or Plasma Ordered By: Aidan Argueta on 05-02-2025 Anion gap [Moles/Vol] 14 mmol/L 5-15 [facility] Automated lymphocyte count a s percentage of total leukocytesOrdered By: Aidan Argueta on 05-02-2025 Lymphocytes/100 WBC Auto (Unsp spec) 18.6 % Low 19-41 [facility] BUN/creatinine ratioOrdered By: Aidan Argueta on 05-02-2025 Urea nitrogen/Creatinine [Mass ratio] 22.3 mg/mg High 10-20 [facility] Basophil percentageOrdered B y: Aidan Argueta on 05-02-2025 Basophils/100 WBC (Bld) 0.8 % 0-1 [facility] Bilirubin, totalOrdered By: Aidan Argueta on 05-02-2025 Bilirubin [Mass/Vol] 0.52 mg/dL 0.00-1.30 [facility] CBC W/Diff, Automatedon 04-06 Absolute Lymph 1.32 X10 3/uL Normal 0.83-4.51 [facility] Comment on above: Performed By: #### M 100.2200 #### [facility] [address] [place], [address] Absolute Neut 4.8 X10 3/uL Normal 2.0-7.7 [facility] Comment on above: Performed By: #### M 100.2200 #### [facility] [address] [place], [address] Basophils/100 WBC (Bld) 0.8 % Normal 0-1 [facility] Comment on above: Performed By: #### M 100.2200 #### [facility] [address] [place], [address] Eosinophils/100 WBC (Bld) 4.1 % Normal 0-5 [facility] Comment on above: Performed By: #### M 100.2200 #### [facility] [address] [place], [address] Erythrocyte distribution width (RBC) [Ratio] 14.6 % Normal 11.6-14.6 [facility] Comment on above: Performed By: #### M 100.2200 #### [facility] [address] [place], [address] Hematocrit (Bld) [Volume fraction] 38.3 % Low 40-54 [facility] Comment on above: Performed By: #### M 100.2200 #### [facility] [address] [place], [address] Hemoglobin (Bld) [Mass/Vol] 12.5 g/dL Low 13.0-16.5 [facility] Comment on above: Performed By: #### M 100.2200 #### [facility] [address] [place], [address] IG% 0.400 Normal 0.0-0.9 [facility] Comment on above: Result Comment: IG% - Immature Granulocytes (promyelocytes, myelocytes and metamyelocytes) > 1% indicates that a LEFT SHIFT is Present. Performed By: #### M 100.2200 #### [facility] [address] [place], [address] Lymphocytes/100 WBC (Bld) 18.6 % Low 19-41 [facility] Comment on above: Performed By: #### M 100.2200 #### [facility] [address] [place], [address] MCH (RBC) [Entitic mass] 29.2 pg Normal 27.0-32.0 [facility] Comment on above: Performed By: #### M 100.2200 #### [facility] [address] [place], [address] MCHC (RBC) [Mass/Vol] 32.6 g/dL Normal 32-36 [facility] Comment on above: Performed By: #### M 100.2200 #### [facility] [address] [place], [address] MCV (RBC) [Entitic vol] 89.5 fL Normal 80-94 [facility] Comment on above: Performed By: #### M 100.2200 #### [facility] [address] [place], [address] Monocytes/100 WBC (Bld) 8.2 % Normal 0-10 [facility] Comment on above: Performed By: #### M 100.2200 #### [facility] [address] [place], [address] Neutrophils/100 WBC (Bld) 67.9 % Normal 47-70 [facility] Comment on above: Performed By: #### M 100.2200 #### [facility] [address] [place], [address] Nucleated RBC (Bld) [#/Vol] 0 10*3/uL Normal 0-5 [facility] Comment on above: Performed By: #### M 100.2200 #### [facility] [address] [place], [address] Platelet mean volume (Bld) [Entitic vol] 10.0 fL Normal 6.2-12.0 [facility] Comment on above: Performed By: #### M 100.2200 #### [facility] [address] [place], [address] Platelets (Bld) [#/Vol] 279 10*3/uL Normal 150-450 [facility] Comment on above: Performed By: #### M 100.2200 #### [facility] [address] [place], [address] RBC (Bld) [#/Vol] 4.28 10*6/uL Low 4.6-6.2 [facility] Comment on above: Performed By: #### M 100.2200 #### [facility] [address] [place], [address] RDW SD 47.8 fl High 35.1-43.9 [facility] Comment on above: Performed By: #### M 100.2200 #### [facility] [address] [place], [address] WBC (Bld) [#/Vol] 7.1 10*3/uL Normal 4.4-11.0 [facility] Comment on above: Performed By: #### M 100.2200 #### [facility] [address] [place], [address] Calculated very low density lipoprotein (VLDL) cholesterol measurementOrdered By: Aidan Argueta on 05-02-2025 Calculated very low density lipoprotein (VLDL) cholesterol measurement 14 mg/dL 5-40 [facility] Carbon dioxide, total [Moles /volume] in Central venous bloodOrdered By: Aidan Argueta on 05-02-2025 CO2 [Moles/Vol] 19.8 mmol/L Low 21.0-32.0 [facility] Chloride assayOrdered By: Johanny Argueta on 05-02-2025 Chloride [Moles/Vol] 103 mmol/L 98-108 [facility] Comprehensive Metabolic Prof ilon 05-02-2025 Albumin [Mass/Vol] 4.2 g/dL Normal 3.4-4.8 [facility] Comment on above: Performed By: #### M 100.2200 #### [facility] [address] [place], [address] Albumin/Globulin [Mass ratio] 1.2 {ratio} Normal 0.9-2.4 [facility] Comment on above: Performed By: #### M 100.2200 #### [facility] [address] [place], [address] ALK PHOS 109 U/L Normal 40-129 [facility] Comment on above: Performed By: #### M 100.2200 #### [facility] [address] [place], [address] ALT [Catalytic activity/Vol] 24 U/L Normal <=46 [facility] Comment on above: Performed By: #### M 100.2200 #### [facility] [address] [place], [address] AST [Catalytic activity/Vol] 21 U/L Normal <=37 [facility] Comment on above: Performed By: #### M 100.2200 #### [facility] [address] [place], [address] Bilirubin [Mass/Vol] 0.52 mg/dL Normal 0.00-1.30 [facility] Comment on above: Performed By: #### M 100.2200 #### [facility] [address] [place], [address] BUN/CRE 22.3 RATIO High 10-20 [facility] Comment on above: Performed By: #### M 100.2200 #### [facility] [address] [place], [address] Calcium [Mass/Vol] 10.3 mg/dL Normal 7.6-11.0 [facility] Comment on above: Performed By: #### M 100.2200 #### [facility] [address] [place], [address] Chloride [Moles/Vol] 103 mmol/L Normal 98-108 [facility] Comment on above: Performed By: #### M 100.2200 #### [facility] [address] [place], [address] CO2 [Moles/Vol] 19.8 mmol/L Low 21.0-32.0 [facility] Comment on above: Performed By: #### M 100.2200 #### [facility] [address] [place], [address] Creatinine [Mass/Vol] 0.88 mg/dL Normal 0.70-1.20 [facility] Comment on above: Performed By: #### M 100.2200 #### [facility] [address] [place], [address] GAP 14 Normal 5-15 [facility] Comment on above: Performed By: #### M 100.2200 #### [facility] [address] [place], [address] GFR/1.73 sq M.predicted among non-blacks MDRD (S/P/Bld) [Vol rate/Area] 90 mL/min/{1.73_m2} Normal >60 [facility] Comment on above: Result Comment: mL/m in/1.73m2 CKD-EPI Creatinine Equation (2020) Performed By: #### M 100.2200 #### [facility] [address] [place], [address] Globulin (S) [Mass/Vol] 3.4 g/dL Normal 2.2-4.2 [facility] Comment on above: Performed By: #### M 100.2200 #### [facility] [address] [place], [address] Glucose [Mass/Vol] 116 mg/dL High 70-99 [facility] Comment on above: Performed By: #### M 100.2200 #### [facility] [address] [place], [address] Potassium [Moles/Vol] 4.4 mmol/L Normal 3.3-5.1 [facility] Comment on above: Performed By: #### M 100.2200 #### [facility] [address] [place], [address] Sodium [Moles/Vol] 136 mmol/L Normal 133-145 [facility] Comment on above: Performed By: #### M 100.2200 #### [facility] [address] [place], [address] T PROT 7.6 g/dL Normal 5.9-8.4 [facility] Comment on above: Performed By: #### M 100.2200 #### [facility] [address] [place], [address] Urea nitrogen [Mass/Vol] 20 mg/dL High 4-19 [facility] Comment on above: Performed By: #### M 100.2200 #### [facility] [address] [place], [address] Eosinophil percentageOrdered By: Aidan Argueta on 05-02-2025 Eosinophils/100 WBC (Bld) 4.1 % 0-5 [facility] Erythrocyte distribution wid th ratioOrdered By: Aidan Argueta on 05-02-2025 Erythrocyte distribution width (RBC) [Ratio] 14.6 % 11.6-14.6 [facility] Erythrocyte distribution wid th standard deviationOrdered By: Aidan Argueta on 05-02-2025 Erythrocyte distribution width (RBC) [Ratio] 47.8 fl High 35.1-43.9 [facility] Ferritinon 05-02-2025 Ferritin [Mass/Vol] 24 ng/mL Low 37-417 [facility] Comment on above: Performed By: #### M 100.2200 #### [facility] [address] [place], [place], [address] Glomerular filtration rate ( GFR) estimation/1.73 sq m using serum, plasma, or whole bOrdered By: Aidan Argueta on 05-02-2025 GFR/1.73 sq M.predicted among non-blacks MDRD (S/P/Bld) [Vol rate/Area] 90 mL/min/{1.73_m2} >60 [facility] Comment on above: mL/min/1.73m2 CKD-EP I Creatinine Equation (2020) Hematocrit Auto (Bld) [Volum e fraction]Ordered By: Aidan Argueta on 05-02-2025 Hematocrit (Bld) [Volume fraction] 38.3 % Low 40-54 [facility] [facility] Hemoglobin A1con 05-02-2025 HbA1c (Bld) [Mass fraction] 7.1 % High <=5.6 [facility] Comment on above: Result Comment: Norm al < 5.7 % Prediabetic 5.7 - 6.4 % Diabetic >or= 6.5 % Please note range changes. Performed By: #### M 100.2200 #### [facility] [address] [place], [address] Hemoglobin A1c percentageOrd ered By: Aidan Argueta on 05-02-2025 HbA1c (Bld) [Mass fraction] 7.1 % High <5.7 [facility] Comment on above: Normal < 5.7 % Predi abetic 5.7 - 6.4 % Diabetic >or= 6.5 % Please note range changes. Hemoglobin measurementOrdere d By: Aidan Argueta on 05-02-2025 Hemoglobin (Bld) [Mass/Vol] 12.5 g/dL Low 13.0-16.5 [facility] Immature granulocytes/100 WB C Auto (Bld)Ordered By: Aidan Argueta on 05-02-2025 Immature granulocytes/100 WBC (Bld) 0.400 % 0.0-0.9 [facility] Comment on above: IG% - Immature Granu locytes (promyelocytes, myelocytes and metamyelocytes) > 1% indicates that a LEFT SHIFT is Present. Iron measurement (mass/mass) Ordered By: Aidan Argueta on 05-02-2025 Iron (Unsp spec) [Mass/Mass] 94 ug/dL 65-175 [facility] Iron+Iron Binding Capacityon 05-02-2025 Iron [Mass/Vol] 94 ug/dL Normal 65-175 [facility] Comment on above: Performed By: #### M 100.2200 #### [facility] [address] [place], [address] IRON SATURATION 24.0 Normal 9-55 [facility] Comment on above: Performed By: #### M 100.2200 #### [facility] [address] [place], [address] TIBC 396 ug/dL Normal 250-450 [facility] Comment on above: Performed By: #### M 100.2200 #### [facility] [address] [place], [address] UIBC 302 ug/dL Normal 228-428 [facility] Comment on above: Performed By: #### M 100.2200 #### [facility] [address] [place], [address] LDL calc ser/plasOrdered By: Aidan Argueta on 05-02-2025 Cholesterol in LDL [Mass/Vol] 74 mg/dL [facility] Comment on above: Cmlwgyausl=827-647 m g/dL & Higher Cbgv=478 mg/dL or greaterFriedwald Equation for LDL-C Laboratory - Chemistry and C hemistry - challengeOrdered By: Aidan Argueta on 05-02-2025 AST [Catalytic activity/Vol] 21 U/L <38 [facility] Lipid Profileon 05-02-2025 CHOL:HDL 2.68 Normal [facility] Comment on above: Performed By: #### M 100.2200 #### [facility] [address] [place], [address] Cholesterol [Mass/Vol] 141 mg/dL Normal <=200 [facility] Comment on above: Result Comment: Chol esterol level, Desirable <200 mg/dL Borderline high cholesterol 200-239 mg/dL High cholesterol >=240 mg/dL Recommendations of the NCEP Adult Treatment Panel for the following risk-cutoff thresholds for the [place] population. Performed By: #### M 100.2199 #### [facility] [address] [place], [address] Cholesterol in HDL [Mass/Vol] 53 mg/dL Normal [facility] Comment on above: Result Comment: Davida onal Cholesterol Education Program (NCEP) guidelines: <40 mg/dL: Low HDL-cholesterol (major risk factor for CHD) >= 60 mg/dL: High HDL-cholesterol (negative risk factor for CHD) HDL-cholesterol is affected by a number of factors, e.g. smoking, exercise, hormones, sex and age. Performed By: #### M 100.0 #### [facility] [address] [place], [address] Cholesterol in LDL [Mass/Vol] 74 mg/dL Normal [facility] Comment on above: Result Comment: Bord mncluq=756-574 mg/dL Higher Vmpi=128 mg/dL or greater Friedwald Equation for LDL-C Performed By: #### M 100.0 #### [facility] [address] [place], [address] Cholesterol in VLDL [Mass/Vol] 14 mg/dL Normal 5-40 [facility] Comment on above: Performed By: #### M 100.2200 #### [facility] [address] [place], [address] Triglyceride [Mass/Vol] 69 mg/dL Normal [facility] Comment on above: Result Comment: The drugs N-Acetylcysteine and Metamizole may falsely depress this assay. Normal range: <150 mg/dL Borderline High: 150-199 mg/dL High: 200-499 mg/dL Very High: >500 mg/dL Performed By: #### M 100.2200 #### [facility] [address] [place], [place], [id number] MCV (mean corpuscular volume ) determinationOrdered By: Aidan Argueta on 05-02-2025 MCV (RBC) [Entitic vol] 89.5 fL 80-94 [facility] Mean corpuscular hemoglobin (MCH) determinationOrdered By: Aidan Argueta on 05-02-2025 MCH (RBC) [Entitic mass] 29.2 pg 27.0-32.0 [facility] Mean corpuscular hemoglobin concentration (MCHC) determinationOrdered By: Aidan Argueta on 05-02-2025 MCHC (RBC) [Mass/Vol] 32.6 g/dL 32-36 [facility] Mean platelet volume determi nationOrdered By: Aidan Argueta on 05-02-2025 Platelet mean volume (Bld) [Entitic vol] 10.0 fL 6.2-12.0 [facility] Microalb:Creat Ratio,Random URon 05-02-2025 Creatinine [Mass/Vol] 44.30 mg/dL Normal 39.00- 259. 00 [facility] Comment on above: Performed By: #### M 100.2200 #### [facility] [address] [place], [place], [id number] MALB:CREAT UNABLE TO CALCULATE Normal <30 mg/g [facility] Comment on above: Performed By: #### M 100.2200 #### [facility] [address] [place], [place], [id number] MICROALBUMIN,UR < 12.0 Normal <20 mg/L [facility] Comment on above: Performed By: #### M 100.2200 #### [facility] [address] [place], [place], [id number] Microalbumin/creat ratio urO rdered By: Aidan Argueta on 05-02-2025 Urine microalbumin/creatinine ratio measurement UNABLE TO CALCULATE mg/g CRE <30 [facility] Monocyte percentageOrdered B y: Aidan Argueta on 05-02-2025 Monocytes/100 WBC (Bld) 8.2 % 0-10 [facility] Neutrophil percentageOrdered By: Aidan Argueta on 05-02-2025 Neutrophils/100 WBC (Bld) 67.9 % 47-70 [facility] No Panel InformationOrdered By: Aidan Argueta on 05-02-2025 Unsaturated Iron Binding Capacity 302 ug/dL 228-428 [facility] Nucleated red blood cell per centageOrdered By: Aidan Argueta on 05-02-2025 Nucleated RBC/100 WBC (Bld) [Ratio] 0 % 0-5 [facility] Platelet countOrdered By: Johanny Argueta on 05-02-2025 Platelets (Bld) [#/Vol] 279 10*3/uL 150-450 [facility] Potassium measurement (mass/ volume)Ordered By: Aidan Argueta on 05-02-2025 Potassium (Unsp spec) [Mass/Vol] 4.4 mmol/L 3.3-5.1 [facility] RBC Auto (Bld) [#/Vol]Ordere d By: Aidan Argueta on 05-02-2025 RBC (Bld) [#/Vol] 4.28 10*6/uL Low 4.6-6.2 [facility] Random urine creatinine winsome urement (mass/volume)Ordered By: Aidan Argueta on 05-02-2025 Creatinine Unsp time (U) [Mass/Vol] 44.30 mg/dL 39.00-259. 00 [facility] Screening total cholesterol/ high density lipoprotein (HDL) cholesterol ratioOrdered By: Aidan Argueta on 05-02-2025 Cholesterol.total/Rosario sterol in HDL [Mass ratio] 2.68 {ratio} [facility] Serum creatinine measurement (mass/volume)Ordered By: Aidan Argueta on 05-02-2025 Creatinine [Mass/Vol] 0.88 mg/dL 0.70-1.20 [facility] Serum globulin measurementOr dered By: Aidan Argueta on 05-02-2025 Globulin (S) [Mass/Vol] 3.4 g/dL 2.2-4.2 [facility] Serum glucose measurement (m ass/volume)Ordered By: Aidan Argueta on 05-02-2025 Glucose [Mass/Vol] 116 mg/dL High 70-99 [facility] Serum or plasma alanine mckeon otransferase (ALT) measurementOrdered By: Aidan Argueta on 05-02-2025 ALT [Catalytic activity/Vol] 24 U/L <47 [facility] Serum or plasma albumin winsome urement (mass/volume)Ordered By: Aidan Argueta on 05-02-2025 Albumin [Mass/Vol] 4.2 g/dL 3.4-4.8 [facility] Serum or plasma albumin/glob ulin mass ratioOrdered By: Aidan Argueta on 05-02-2025 Albumin/Globulin [Mass ratio] 1.2 {ratio} 0.9-2.4 [facility] Serum or plasma alkaline corinne sphatase measurementOrdered By: Aidan Argueta on 05-02-2025 ALP [Catalytic activity/Vol] 109 U/L 40-129 [facility] Serum or plasma calcium winsome urement (mass/volume)Ordered By: Aidan Argueta on 05-02-2025 Calcium [Mass/Vol] 10.3 mg/dL 7.6-11.0 [facility] Serum or plasma cholesterol in HDL measurement (mass/volume)Ordered By: Aidan Argueta on 05-02-2025 Cholesterol in HDL [Mass/Vol] 53 mg/dL >40 [facility] Comment on above: National Cholesterol Education Program (NCEP) guidelines:<40 mg/dL: Low HDL-cholesterol (major risk factor for CHD)>= 60 mg/dL: High HDL-cholesterol (negative risk factor for CHD)HDL-cholesterol is affected by a number of factors, e.g. smoking, exercise, hormones, sex and age. Serum or plasma cholesterol measurement (mass/volume)Ordered By: Aidan Argueta on 05-02-2025 Cholesterol [Mass/Vol] 141 mg/dL <201 [facility] Comment on above: Cholesterol level, D esirable <200 mg/dLBorderline high cholesterol 200-239 mg/dLHigh cholesterol >=240 mg/dLRecommendations of the NCEP Adult Treatment Panel for the following risk-cutoff thresholds for the [place] population. Serum or plasma ferritin jose surement (mass/volume)Ordered By: Aidan Argueta on 05-02-2025 Ferritin [Mass/Vol] 24 ng/mL Low 37-417 [facility] Serum or plasma iron saturat ion measurement (mass fraction)Ordered By: Aidan Argueta on 05-02-2025 Iron saturation [Mass fraction] 24.0 % 9-55 [facility] Serum or plasma urea nitroge n measurement (mass/volume)Ordered By: Aidan Argueta on 05-02-2025 Urea nitrogen [Mass/Vol] 20 mg/dL High 4-19 [facility] Sodium levelOrdered By: Aidan Argueta on 05-02-2025 Sodium [Moles/Vol] 136 mmol/L 133-145 [facility] Total proteinOrdered By: Todd Argueta on 05-02-2025 Protein [Mass/Vol] 7.6 g/dL 5.9-8.4 [facility] Triglycerides measurementOrd ered By: Aidan Argueta on 05-02-2025 Triglyceride [Mass/Vol] 69 mg/dL <199 [facility] Comment on above: The drugs N-Acetylcy steine and Metamizole may falsely depress this assay. Normal range: <150 mg/dLBorderline High: 150-199 mg/dLHigh: 200-499 mg/dLVery High: >500 mg/dL Urine albumin measurement wi detection limit of 20 mg/L or less (mass/volume)Ordered By: Aidan Argueta on 05-02-2025 Albumin DL <= 20 mg/L (U) [Mass/Vol] < 12.0 mg/L <20 mg/L [facility] Vitamin D,25 Hydroxyon 05-02 Vitamin D 25-OH 40.7 ng/mL Normal 30-100 [facility] Comment on above: Result Comment: Kena [...] nmol/L) Performed By: #### M 100.2200 #### [facility] [place], [id number] White blood cell (WBC) count Ordered By: Aidan Argueta on 05-02-2025 WBC (Bld) [#/Vol] 7.1 10*3/uL 4.4-11.0 [facility] Absolute neutrophil countOrd ered By: Aidan Argueta on 11-05-2024 Neutrophils (Bld) [#/Vol] 5.5 10*3/uL 2.0-7.7 [facility] Albumin DL <= 20 mg/L (U) [M ass/Vol]Ordered By: Aidan Argueta on 11-05-2024 Urine Random Microalbumin < 12.0 mg/L NO RANGE EST. [facility] BUN/creatinine ratioOrdered By: Aidan Argueta on 11-05-2024 Urea nitrogen/Creatinine [Mass ratio] 23.3 mg/mg High 10-20 [facility] Basophil percentageOrdered B y: Aidan Argueta on 11-05-2024 Basophils/100 WBC (Bld) 0.8 % 0-1 [facility] Bilirubin Test strip Ql (U)O rdered By: Aidan Argueta on 11-05-2024 Bilirubin Ql (U) Negative Negative [facility] Bilirubin, totalOrdered By: Aidan Argueta on 11-05-2024 Bilirubin [Mass/Vol] 0.22 mg/dL 0.00-1.30 [facility] CBC W/Diff, Automatedon Absolute Lymph 1.35 X10 3/uL Normal 0.83-4.51 [facility] Comment on above: Performed By: #### L 501.9985, L100.0100, L500.4100, L500.4050, L400.0001, L502.0250, L506.1001 #### [facility] [address] [place], [address] Absolute Neut 5.5 X10 3/uL Normal 2.0-7.7 [facility] Comment on above: Performed By: #### L 501.9985, L100.0100, L500.4100, L500.4050, L400.0001, L502.0250, L506.1001 #### [facility] [address] [place], [address] Basophils/100 WBC (Bld) 0.8 % Normal 0-1 [facility] Comment on above: Performed By: #### L 501.9985, L100.0100, L500.4100, L500.4050, L400.0001, L502.0250, L506.1001 #### [facility] [address] [place], [address] Eosinophils/100 WBC (Bld) 3.6 % Normal 0-5 [facility] Comment on above: Performed By: #### L 501.9985, L100.0100, L500.4100, L500.4050, L400.0001, L502.0250, L506.1001 #### [facility] [address] [place], [address] Erythrocyte distribution width (RBC) [Ratio] 16.3 % High 11.6-14.6 [facility] Comment on above: Performed By: #### L 501.9985, L100.0100, L500.4100, L500.4050, L400.0001, L502.0250, L506.1001 #### [facility] [address] [place], [address] Hematocrit (Bld) [Volume fraction] 41.5 % Normal 40-54 [facility] Comment on above: Performed By: #### L 501.9985, L100.0100, L500.4100, L500.4050, L400.0001, L502.0250, L506.1001 #### [facility] [address] [place], [address] Hemoglobin (Bld) [Mass/Vol] 13.2 g/dL Normal 13.0-16.5 [facility] Comment on above: Performed By: #### L 501.9985, L100.0100, L500.4100, L500.4050, L400.0001, L502.0250, L506.1001 #### [facility] [address] [place], [address] IG% 0.400 Normal 0.0-0.9 [facility] Comment on above: Result Comment: IG% - Immature Granulocytes (promyelocytes, myelocytes and metamyelocytes) > 1% indicates that a LEFT SHIFT is Present. Performed By: #### L 501.9985, L100.0100, L500.4100, L500.4050, L400.0001, L502.0250, L506.1001 #### [facility] [address] [facility] [place], [address] Lymphocytes/100 WBC (Bld) 17.3 % Low 19-41 [facility] Comment on above: Performed By: #### L 501.9985, L100.0100, L500.4100, L500.4050, L400.0001, L502.0250, L506.1001 #### [facility] [address] [place], [address] MCH (RBC) [Entitic mass] 28.2 pg Normal 27.0-32.0 [facility] Comment on above: Performed By: #### L 501.9985, L100.0100, L500.4100, L500.4050, L400.0001, L502.0250, L506.1001 #### [facility] [address] [place], [address] MCHC (RBC) [Mass/Vol] 31.8 g/dL Low 32-36 [facility] Comment on above: Performed By: #### L 501.9985, L100.0100, L500.4100, L500.4050, L400.0001, L502.0250, L506.1001 #### [facility] [address] [place], [address] MCV (RBC) [Entitic vol] 88.7 fL Normal 80-94 [facility] Comment on above: Performed By: #### L 501.9985, L100.0100, L500.4100, L500.4050, L400.0001, L502.0250, L506.1001 #### [facility] [address] [place], [address] Monocytes/100 WBC (Bld) 8.1 % Normal 0-10 [facility] Comment on above: Performed By: #### L 501.9985, L100.0100, L500.4100, L500.4050, L400.0001, L502.0250, L506.1001 #### [facility] [address] [place], [address] Neutrophils/100 WBC (Bld) 69.8 % Normal 47-70 [facility] Comment on above: Performed By: #### L 501.9985, L100.0100, L500.4100, L500.4050, L400.0001, L502.0250, L506.1001 #### [facility] [address] [place], [address] Nucleated RBC (Bld) [#/Vol] 0 10*3/uL Normal 0-5 [facility] Comment on above: Performed By: #### L 501.9985, L100.0100, L500.4100, L500.4050, L400.0001, L502.0250, L506.1001 #### [facility] [address] [place], [address] Platelet mean volume (Bld) [Entitic vol] 10.1 fL Normal 6.2-12.0 [facility] Comment on above: Performed By: #### L 501.9985, L100.0100, L500.4100, L500.4050, L400.0001, L502.0250, L506.1001 #### [facility] [address] [place], [address] Platelets (Bld) [#/Vol] 250 10*3/uL Normal 150-450 [facility] Comment on above: Performed By: #### L 501.9985, L100.0100, L500.4100, L500.4050, L400.0001, L502.0250, L506.1001 #### [facility] [address] [place], [address] RBC (Bld) [#/Vol] 4.68 10*6/uL Normal 4.6-6.2 [facility] Comment on above: Performed By: #### L 501.9985, L100.0100, L500.4100, L500.4050, L400.0001, L502.0250, L506.1001 #### [facility] [address] [place], [address] RDW SD 52.4 fl High 35.1-43.9 [facility] Comment on above: Performed By: #### L 501.9985, L100.0100, L500.4100, L500.4050, L400.0001, L502.0250, L506.1001 #### [facility] [address] [place], [address] WBC (Bld) [#/Vol] 7.8 10*3/uL Normal 4.4-11.0 [facility] Comment on above: Performed By: #### L 501.9985, L100.0100, L500.4100, L500.4050, L400.0001, L502.0250, L506.1001 #### [facility] [address] [place], [place], [id number] Calculated very low density lipoprotein (VLDL) cholesterol measurementOrdered By: Aidan Argueta on 11-05-2024 VLDL Cholesterol 19 mg/dL 5-40 [facility] Carbon dioxide measurementOr dered By: Aidan Argueta on 11-05-2024 CO2 [Moles/Vol] 21.3 mmol/L Low 22.0-29.0 [facility] Chloride measurementOrdered By: Aidan Argueta on 11-05-2024 Chloride [Moles/Vol] 107 mmol/L 96-108 [facility] Comprehensive Metabolic Prof ilon 11-05-2024 Albumin [Mass/Vol] 4.0 g/dL Normal 3.4-4.8 [facility] Comment on above: Performed By: #### L 501.9985, L100.0100, L500.4100, L500.4050, L400.0001, L502.0250, L506.1001 #### [facility] [address] [place], [place], [phone] (322) Albumin/Globulin [Mass ratio] 1.3 {ratio} Normal 0.9-2.4 [facility] Comment on above: Performed By: #### L 501.9985, L100.0100, L500.4100, L500.4050, L400.0001, L502.0250, L506.1001 #### [facility] [address] [place], [address] ALK PHOS 96 U/L Normal 40-129 [facility] Comment on above: Performed By: #### L 501.9985, L100.0100, L500.4100, L500.4050, L400.0001, L502.0250, L506.1001 #### [facility] [address] [place], [address] ALT [Catalytic activity/Vol] 21 U/L Normal <=46 [facility] Comment on above: Performed By: #### L 501.9985, L100.0100, L500.4100, L500.4050, L400.0001, L502.0250, L506.1001 #### [facility] [address] [place], [address] Anion gap [Moles/Vol] 11 mmol/L Normal 5-15 [facility] Comment on above: Performed By: #### L 501.9985, L100.0100, L500.4100, L500.4050, L400.0001, L502.0250, L506.1001 #### [facility] [address] [place], [place], [phone] (708) AST [Catalytic activity/Vol] 20 U/L Normal <=37 [facility] Comment on above: Performed By: #### L 501.9985, L100.0100, L500.4100, L500.4050, L400.0001, L502.0250, L506.1001 #### [facility] [address] [place], [address] Bilirubin [Mass/Vol] 0.22 mg/dL Normal 0.00-1.30 [facility] Comment on above: Performed By: #### L 501.9985, L100.0100, L500.4100, L500.4050, L400.0001, L502.0250, L506.1001 #### [facility] [address] [place], [address] BUN/CRE 23.3 RATIO High 10-20 [facility] Comment on above: Performed By: #### L 501.9985, L100.0100, L500.4100, L500.4050, L400.0001, L502.0250, L506.1001 #### [facility] [address] [place], [address] Calcium [Mass/Vol] 10.0 mg/dL Normal 7.6-11.0 [facility] Comment on above: Performed By: #### L 501.9985, L100.0100, L500.4100, L500.4050, L400.0001, L502.0250, L506.1001 #### [facility] [address] [place], [address] Chloride [Moles/Vol] 107 mmol/L Normal 96-108 [facility] Comment on above: Performed By: #### L 501.9985, L100.0100, L500.4100, L500.4050, L400.0001, L502.0250, L506.1001 #### [facility] [address] [place], [address] CO2 [Moles/Vol] 21.3 mmol/L Low 22.0-29.0 [facility] Comment on above: Performed By: #### L 501.9985, L100.0100, L500.4100, L500.4050, L400.0001, L502.0250, L506.1001 #### [facility] [address] [place], [address] Creatinine [Mass/Vol] 0.78 mg/dL Normal 0.70-1.20 [facility] Comment on above: Performed By: #### L 501.9985, L100.0100, L500.4100, L500.4050, L400.0001, L502.0250, L506.1001 #### [facility] [address] [place], [address] GFR/1.73 sq M.predicted among non-blacks MDRD (S/P/Bld) [Vol rate/Area] 94 mL/min/{1.73_m2} Normal >60 [facility] Comment on above: Result Comment: mL/m in/1.73m2 CKD-EPI Creatinine Equation (2020) Performed By: #### L 501.9985, L100.0100, L500.4100, L500.4050, L400.0001, L502.0250, L506.1001 #### [facility] [address] [place], [address] Globulin (S) [Mass/Vol] 3.2 g/dL Normal 2.2-4.2 [facility] Comment on above: Performed By: #### L 501.9985, L100.0100, L500.4100, L500.4050, L400.0001, L502.0250, L506.1001 #### [facility] [address] [place], [address] Glucose [Mass/Vol] 149 mg/dL High 70-99 [facility] Comment on above: Performed By: #### L 501.9985, L100.0100, L500.4100, L500.4050, L400.0001, L502.0250, L506.1001 #### [facility] [address] [place], [address] Potassium [Moles/Vol] 4.2 mmol/L Normal 3.3-5.1 [facility] Comment on above: Performed By: #### L 501.9985, L100.0100, L500.4100, L500.4050, L400.0001, L502.0250, L506.1001 #### [facility] [address] [place], [address] Sodium [Moles/Vol] 140 mmol/L Normal 133-145 [facility] Comment on above: Performed By: #### L 501.9985, L100.0100, L500.4100, L500.4050, L400.0001, L502.0250, L506.1001 #### [facility] [address] [place], [address] T PROT 7.2 g/dL Normal 5.9-8.4 [facility] Comment on above: Performed By: #### L 501.9985, L100.0100, L500.4100, L500.4050, L400.0001, L502.0250, L506.1001 #### [facility] [address] [place], [address] Urea nitrogen [Mass/Vol] 18 mg/dL Normal 4-19 [facility] Comment on above: Performed By: #### L 501.9985, L100.0100, L500.4100, L500.4050, L400.0001, L502.0250, L506.1001 #### [facility] [address] [facility] [place], [address] Creatinine Unsp time (U) [Ma ss/Vol]Ordered By: Aidan Argueta on 11-05-2024 Creatinine (U) [Mass/Vol] 67.90 mg/dL 39-259 [facility] Eosinophil percentageOrdered By: Aidan Argueta on 11-05-2024 Eosinophils/100 WBC (Bld) 3.6 % 0-5 [facility] Epithelial cells.squamous LM Ql (Urine sed)Ordered By: Aidan Argueta on 11-05-2024 Epithelial cells.squamous LM.HPF (Urine sed) [#/Area] 0 /[HPF] 0-5 [facility] Erythrocyte distribution wid th ratioOrdered By: Aidan Argueta on 11-05-2024 Erythrocyte distribution width (RBC) [Ratio] 16.3 % High 11.6-14.6 [facility] Erythrocyte distribution wid th standard deviationOrdered By: Aidan Argueta on 11-05-2024 Erythrocyte distribution width (RBC) [Entitic vol] 52.4 fL High 35.1-43.9 [facility] GFR/1.73 sq M.predicted rashida g non-blacks MDRD (S/P/Bld) [Vol rate/Area]Ordered By: Aidan Argueta on 11-05-2024 Estimated GFR (MDRD) Non-Af Amer 94 >60 [facility] Comment on above: mL/min/1.73m2 CKD-EP I Creatinine Equation (2020) Glucose Ql (U)Ordered By: Johanny Argueta on 11-05-2024 Glucose (U) [Mass/Vol] 1000 mg/dL High Normal [facility] Hematocrit Auto (Bld) [Volum e fraction]Ordered By: Aidan Argueta on 11-05-2024 Hematocrit (Bld) [Volume fraction] 41.5 % 40-54 [facility] Hemoglobin A1con 11-05-2024 HbA1c (Bld) [Mass fraction] 7.0 % Normal <=5.6 [facility] Comment on above: Performed By: #### L 501.9985, L100.0100, L500.4100, L500.4050, L400.0001, L502.0250, L506.1001 #### [facility] Laboratory [facility] [place], [address] Hemoglobin A1c percentageOrd ered By: Aidan Argueta on 11-05-2024 HbA1c (Bld) [Mass fraction] 7.0 % >5.7 [facility] Hemoglobin measurementOrdere d By: Aidan Argueta on 11-05-2024 Hemoglobin (Bld) [Mass/Vol] 13.2 g/dL 13.0-16.5 [facility] Immature granulocytes/100 WB C Auto (Bld)Ordered By: Aidan Argueta on 11-05-2024 Immature granulocytes/100 WBC (Bld) 0.400 % 0.0-0.9 [facility] Comment on above: IG% - Immature Granu locytes (promyelocytes, myelocytes and metamyelocytes) > 1% indicates that a LEFT SHIFT is Present. Ketones Test strip Ql (U)Ord ered By: Aidan Argueta on 11-05-2024 Ketones Ql (U) Negative Negative [facility] L506.1001on 11-05-2024 Vitamin D 25-OH 28.8 ng/mL Low 30-100 [facility] Comment on above: Result Comment: Kena min D Status Deficiency: <20 ng/mL (50nmol/L) Insufficiency: 20-30 ng/mL (50-75 nmol/L) Sufficiency: 30-100 ng/mL (75-250 nmol/L) Toxicity: >100 ng/mL (>250 nmol/L) Performed By: #### M 100.2200 #### [facility] [address] [place], [place], [id number] LDL calc ser/plasOrdered By: Aidan Argueta on 11-05-2024 LDL Cholesterol, Calculated 58 mg/dL [facility] Comment on above: Wcgwsjrdfd=258-363 m g/dL & Higher Eqla=227 mg/dL or greater Laboratory - Chemistry and C hemistry - challengeOrdered By: Aidan Argueta on 11-05-2024 AST [Catalytic activity/Vol] 20 U/L <38 [facility] Lipid Profileon 11-05-2024 CHOL:HDL 2.49 Normal [facility] Comment on above: Performed By: #### M 100.2200 #### [facility] [address] [place], [place], [id number] Cholesterol [Mass/Vol] 130 mg/dL Normal <=200 [facility] Comment on above: Result Comment: Chol esterol level, Desirable <200 mg/dL Borderline high cholesterol 200-239 mg/dL High cholesterol >=240 mg/dL Recommendations of the NCEP Adult Treatment Panel for the following risk-cutoff thresholds for the [place] population. Performed By: #### M 100.2200 #### [facility] [address] [place], [place], [id number] Cholesterol in HDL [Mass/Vol] 52 mg/dL Normal [facility] Comment on above: Result Comment: Davida onal Cholesterol Education Program (NCEP) guidelines: <40 mg/dL: Low HDL-cholesterol (major risk factor for CHD) >= 60 mg/dL: High HDL-cholesterol (negative risk factor for CHD) HDL-cholesterol is affected by a number of factors, e.g. smoking, exercise, hormones, sex and age. Performed By: #### M 100.2200 #### [facility] [address] [place], [address] Cholesterol in LDL [Mass/Vol] 58 mg/dL Normal [facility] Comment on above: Result Comment: Bord cknvrx=995-940 mg/dL Higher Lnnc=934 mg/dL or greater Performed By: #### M 100.2200 #### [facility] [address] [place], [address] Cholesterol in VLDL [Mass/Vol] 19 mg/dL Normal 5-40 [facility] Comment on above: Performed By: #### M 100.2200 #### [facility] [address] [place], [address] Triglyceride [Mass/Vol] 97 mg/dL Normal [facility] Comment on above: Result Comment: The drugs N-Acetylcysteine and Metamizole may falsely depress this assay. Normal range: <150 mg/dL Borderline High: 150-199 mg/dL High: 200-499 mg/dL Very High: >500 mg/dL Performed By: #### M 100.2200 #### [facility] [address] [place], [address] Lymphocytes Auto (Unsp spec) [#/Vol]Ordered By: Aidan Argueta on 11-05-2024 Lymphocytes (Bld) [#/Vol] 1.35 10*3/uL 0.83-4.51 [facility] Lymphocytes/100 WBC Auto (Un sp spec)Ordered By: Aidan Argueta on 11-05-2024 Lymphocytes/100 WBC (Bld) 17.3 % Low 19-41 [facility] MCV (mean corpuscular volume ) determinationOrdered By: Aidan Argueta on 11-05-2024 MCV (RBC) [Entitic vol] 88.7 fL 80-94 [facility] Mean corpuscular hemoglobin (MCH) determinationOrdered By: Aidan Argueta on 11-05-2024 MCH (RBC) [Entitic mass] 28.2 pg 27.0-32.0 [facility] Mean corpuscular hemoglobin concentration (MCHC) determinationOrdered By: Aidan Argueta on 11-05-2024 MCHC (RBC) [Mass/Vol] 31.8 g/dL Low 32-36 [facility] Mean platelet volume determi nationOrdered By: Aidan Argueta on 11-05-2024 Platelet mean volume (Bld) [Entitic vol] 10.1 fL 6.2-12.0 [facility] Microalb:Creat Ratio,Random URon 11-05-2024 Creatinine [Mass/Vol] 67.90 mg/dL Normal 39-259 [facility] Comment on above: Performed By: #### L 501.9985, L100.0100, L500.4100, L500.4050, L400.0001, L502.0250, L506.1001 #### [facility] [address] [place], [address] MALB:CREAT UNABLE TO CALCULATE Normal [facility] Comment on above: Performed By: #### L 501.9985, L100.0100, L500.4100, L500.4050, L400.0001, L502.0250, L506.1001 #### [facility] [address] [place], [place], [id number] (519 MICROALBUMIN,UR < 12.0 Normal NO RANGE EST. [facility] Comment on above: Performed By: #### L 501.9985, L100.0100, L500.4100, L500.4050, L400.0001, L502.0250, L506.1001 #### [facility] [address] [place], [place], [address] (938 Microalbumin/creat ratio urO rdered By: Aidan Argueta on 11-05-2024 Urine Microalbumin/Creatinine Ratio UNABLE TO CALCULATE mg/g CRE [facility] Microscopic analysis of urin e for red blood cells (RBC)Ordered By: Aidan Argueta on 11-05-2024 Urine RBC 0 SEEN /hpf 0-5 [facility] Monocyte percentageOrdered B y: Aidan Argueta on 11-05-2024 Monocytes/100 WBC (Bld) 8.1 % 0-10 [facility] Mucus LM Ql (Urine sed)Order ed By: Aidan Argueta on 11-05-2024 Mucus Ql (Urine sed) 0 SEEN /hpf [facility] Neutrophil percentageOrdered By: Aidan Argueta on 11-05-2024 Neutrophils/100 WBC (Bld) 69.8 % 47-70 [facility] Nitrite Test strip Ql (U)Ord ered By: Aidan Argueta on 11-05-2024 Nitrite Ql (U) Negative Negative [facility] Nucleated red blood cell per centageOrdered By: Aidan Argueta on 11-05-2024 Nucleated RBC/100 WBC (Bld) [Ratio] 0 % 0-5 [facility] Platelet countOrdered By: Johanny Argueta on 11-05-2024 Platelets (Bld) [#/Vol] 250 10*3/uL 150-450 [facility] Protein Test strip Ql (U)Ord ered By: Aidan Argueta on 11-05-2024 Protein Ql (U) Negative Negative [facility] RBC Auto (Bld) [#/Vol]Ordere d By: Aidan Argueta on 11-05-2024 RBC (Bld) [#/Vol] 4.68 10*6/uL 4.6-6.2 [facility] Screening total cholesterol/ high density lipoprotein (HDL) cholesterol ratioOrdered By: Aidan Argueta on 11-05-2024 Cholesterol.total/Rosario sterol in HDL [Mass ratio] 2.49 {ratio} [facility] Serum creatinine measurement (mass/volume)Ordered By: Aidan Argueta on 11-05-2024 Creatinine [Mass/Vol] 0.78 mg/dL 0.70-1.20 [facility] Serum globulin measurementOr dered By: Aidan Argueta on 11-05-2024 Globulin (S) [Mass/Vol] 3.2 g/dL 2.2-4.2 [facility] Serum glucose measurement (m ass/volume)Ordered By: Aidan Argueta on 11-05-2024 Glucose [Mass/Vol] 149 mg/dL High 70-99 [facility] Serum or plasma alanine mckeon otransferase (ALT) measurementOrdered By: Aidan Argueta on 11-05-2024 ALT [Catalytic activity/Vol] 21 U/L <47 [facility] Serum or plasma albumin winsome urement (mass/volume)Ordered By: Aidan Argueta on 11-05-2024 Albumin [Mass/Vol] 4.0 g/dL 3.4-4.8 [facility] Serum or plasma albumin/glob ulin mass ratioOrdered By: Aidan Argueta on 11-05-2024 Albumin/Globulin [Mass ratio] 1.3 {ratio} 0.9-2.4 [facility] Serum or plasma alkaline corinne sphatase measurementOrdered By: Aidan Argueta on 11-05-2024 ALP [Catalytic activity/Vol] 96 U/L 40-129 [facility] Serum or plasma anion gap de termination (moles/volume)Ordered By: Aidan Argueta on 11-05-2024 Anion gap [Moles/Vol] 11 mmol/L 5-15 [facility] Serum or plasma calcium winsome urement (mass/volume)Ordered By: Aidan Argueta on 11-05-2024 Calcium [Mass/Vol] 10.0 mg/dL 7.6-11.0 [facility] Serum or plasma cholesterol in HDL measurement (mass/volume)Ordered By: Aidan Argueta on 11-05-2024 Cholesterol in HDL [Mass/Vol] 52 mg/dL >40 [facility] Comment on above: National Cholesterol Education Program (NCEP) guidelines:<40 mg/dL: Low HDL-cholesterol (major risk factor for CHD)>= 60 mg/dL: High HDL-cholesterol (negative risk factor for CHD)HDL-cholesterol is affected by a number of factors, e.g. smoking, exercise, hormones, sex and age. Serum or plasma cholesterol measurement (mass/volume)Ordered By: Aidan Argueta on 11-05-2024 Cholesterol [Mass/Vol] 130 mg/dL <201 [facility] Comment on above: Cholesterol level, D esirable <200 mg/dLBorderline high cholesterol 200-239 mg/dLHigh cholesterol >=240 mg/dLRecommendations of the NCEP Adult Treatment Panel for the following risk-cutoff thresholds for the [place] population. Serum or plasma potassium me asurementOrdered By: Aidan Argueta on 11-05-2024 Potassium [Moles/Vol] 4.2 mmol/L 3.3-5.1 [facility] Serum or plasma sodium measu rement (moles/volume)Ordered By: Aidan Argueta on 11-05-2024 Sodium [Moles/Vol] 140 mmol/L 133-145 [facility] Serum or plasma urea nitroge n measurement (mass/volume)Ordered By: Aidan Argueta on 11-05-2024 Urea nitrogen [Mass/Vol] 18 mg/dL 4-19 [facility] Total proteinOrdered By: Todd Argueta on 11-05-2024 Protein [Mass/Vol] 7.2 g/dL 5.9-8.4 [facility] Triglycerides measurementOrd ered By: Aidan Argueta on 11-05-2024 Triglyceride [Mass/Vol] 97 mg/dL <199 [facility] Comment on above: The drugs N-Acetylcy steine and Metamizole may falsely depress this assay. Normal range: <150 mg/dLBorderline High: 150-199 mg/dLHigh: 200-499 mg/dLVery High: >500 mg/dL Urinalysis, Completeon 11-05 EPI,SQUAMOUS 0-5 SEEN Normal 0-5 [facility] Comment on above: Order Comment: CLEAN CATCH Performed By: #### L 501.9985, L100.0100, L500.4100, L500.4050, L400.0001, L502.0250, L506.1001 #### [facility] [address] [place], [address] RBC 0 SEEN Normal 0-5 [facility] Comment on above: Order Comment: CLEAN CATCH Performed By: #### L 501.9985, L100.0100, L500.4100, L500.4050, L400.0001, L502.0250, L506.1001 #### [facility] [address] [place], [address] WBC 0-5 SEEN Normal 0-5 [facility] Comment on above: Order Comment: CLEAN CATCH Performed By: #### L 501.9985, L100.0100, L500.4100, L500.4050, L400.0001, L502.0250, L506.1001 #### [facility] [address] [place], [place], [id number] BACTERIA 0 SEEN Normal None Seen [facility] Comment on above: Order Comment: CLEAN CATCH Performed By: #### L 501.9985, L100.0100, L500.4100, L500.4050, L400.0001, L502.0250, L506.1001 #### [facility] [address] [place], [address] Mucus Ql (Urine sed) 0 SEEN Normal [facility] Comment on above: Order Comment: CLEAN CATCH Performed By: #### L 501.9985, L100.0100, L500.4100, L500.4050, L400.0001, L502.0250, L506.1001 #### [facility] [address] [place], [place], [address] Urine blood detectionOrdered By: Aidan Argueta on 11-05-2024 Urine Occult Blood Negative Negative [facility] Urine clarityOrdered By: Todd Argueta on 11-05-2024 Clarity (U) Clear Clear [facility] Urine color determinationOrd ered By: Aidan Argueta on 11-05-2024 Color (U) Yellow Yellow [facility] Urine leukocyte esterase det ection by dipstickOrdered By: Aidan Argueta on 11-05-2024 Leukocyte esterase Test strip Ql (U) Negative Negative [facility] Urine pHOrdered By: Aidan cates on 11-05-2024 pH (U) 5.0 [pH] 5.0 - 8.0 [facility] Urine sediment bacteria coun t by microscopy (number/high power field)Ordered By: Aidan Argueta on 11-05-2024 Bacteria LM.HPF (Urine sed) [#/Area] 0 /[HPF] None Seen [facility] Urine specific gravity measu rementOrdered By: Aidan Argueta on 11-05-2024 Specific gravity (U) [Rel density] 1.020 1.002-1.03 0 [facility] Urobilinogen Ql (U)Ordered B y: Aidan Argueta on 11-05-2024 Urine Urobilinogen Normal mg/dl Normal [facility] Vitamin D, 25-hydroxyOrdered By: Aidan Argueta on 11-05-2024 Vitamin D 25-Hydroxy 28.8 ng/mL Low 30-100 [facility] Comment on above: Vitamin D StatusDefi ciency: <20 ng/mL (50nmol/L)Insufficiency: 20-30 ng/mL (50-75 nmol/L)Sufficiency: 30-100 ng/mL (75-250 nmol/L)Toxicity: >100 ng/mL (>250 nmol/L) White blood cell (WBC) count Ordered By: Aidan Argueta on 11-05-2024 WBC (Bld) [#/Vol] 7.8 10*3/uL 4.4-11.0 [facility] White blood cell countOrdere d By: Aidan Argueta on 11-05-2024 Urine WBC 0-5 SEEN /hpf 0-5 [facility] Office Visiton 10-10-2024 Follow-up visit [id number] Avery Vasquez 1950 M Date Provider Department Center 10/10/2024 CLARENCE MELENDEZ [facility] None No family history on file Level of Service:69346 UT OFFICE/OUTPATIENT ESTABLISHED LOW MDM 20 MIN Reason for Visit and Comments: Follow-up [164414] Normal [facility] Progress Noteon 10-10-2024 Progress Note [facility] [address], [address] [place], [place] [id number] Name: Avery Vasquez : 1950 Age: 74 [...] the past, never smoked cigarettes 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 I have personally reviewed all pertinent labs and imaging. Assessment & Plan: Bilateral PE, provoked - outside CTA chest 07/06/24 from [place] reviewed in PACS, bilateral segmental filling defects [...] months of anticoagu (more content not included)... Normal [facility] 36on 10-08-2024 36 Phone call to tejas trimble and relayed to him that provider did want to see him at least one more time before releasing him from routine care. He verbalized agreement and will keep appt as scheduled. Normal [facility] 36 Yes I would like to see patient one more time to review any symptoms and confirm treatment duration of anticoagulation (should be finished with 3 months of Eliquis). Thank you. Normal [facility] 36 Name of caller: Sven blackburn Contact phone number: [phone] Relationship to Patient: patient Provider: Practice: Chief Complaint/Reason for Call: Patient calling to see why he is scheduled. Patient states at his July appointment he was told he did not need a follow up. Please advise. Best time of day caller can be reached: any Patient advised that office/PCP has 24-48 business hours to return their call: no [facility] Urine Cultureon 09-26-2024 [facility] Enterobacter cloacae complex [place] Count 50,000-80,000 Enterobacter cloacae complex: REACTION Cefepime Islt WOLF <=0.12 Ciprofloxacin Islt WOLF <=0.06 S Gentamicin Islt WOLF <=1 S levoFLOXacin Islt WOLF <=0.12 S Meropenem Islt WOLF <=0.25 S Nitrofurantoin Islt WOLF 64 I Pip+Tazo Islt WOLF <=4 S TMP SMX Islt WOLF <=20 S Normal [facility] Comment on above: Performed By: #### M 100.6087 #### [facility] [address] [place], [place], [id number] Urine cultureOrdered By: Todd Argueta on 09-24-2024 Bacteria identified Cx Nom (U) Enterobacter cloacae complex Abnormal [facility] Laboratory - Chemistry and C hemistry - challengeon 09-23-2024 Bilirubin Ql (U) Negative [facility] Glucose Ql (U) Negative [facility] Ketones Ql (U) Moderate (40+) [facility] pH (U) 5.0 [pH] [facility] Specific gravity (U) [Rel density] 1.015 [facility] Urobilinogen (U) [Mass/Vol] 0.3175156 mg/dL [facility] Laboratory - Hematology and Cell countson 09-23-2024 Hemoglobin Ql (U) Trace [facility] Laboratory - Specimen inform ationon 09-23-2024 Clarity (U) Cloudy [facility] Color (U) DARK YELLOW [facility] Laboratory - Urinalysison Nitrite Ql (U) Negative [facility] Protein Ql (U) Positive [facility] No Panel Informationon 09-23 Urine Leukocytes Positive [facility] Urine Non-Hemolyzed Blood Trace [facility] Urgent Care Visit Reporton 0 09-23-2024 Urgent Care Visit Report [facility] [address], [address] [place] [address] OFFICE VISIT Date of Service: 09/23/24 MR#: [id number] Acct: [id number] Name: AVERY VASQUEZ Rep #: [id number] : 1950 Provider: [facility] Self Schedule Age/Sex: 74/M [place] [email or web address] Status: Signed Intake Vital Signs 07/26/24 08:23 [...] Office Uri (more content not included)... Normal [facility] Clavicleon 07-26-2024 Clavicle [facility] [address] [place] [address] Clavicle MR#: [id number] Acct: [id number] Name: AVERY VASQUEZ Rep #: [id number] : 1950 M 74 From: Ash Blackburn PCP: Dr. Aidan Argueta MD Status: DEP AMB Study: Clavicle Date of Exam: 07/26/24 Exam# [id number] Ordering Dr: Jair Gu MD [id number] STUDY: X-RAY - RIGHT CLAVICLE REASON FOR [...] 12:51 EST Reading Location ID and State: [facility] Tel , Service support , CC: Dr. Aidan Argueta MD; Dr. Jair Gu MD Chief Projectionist: Signed Normal [facility] Orthopedic Visit Reporton Orthopedic Visit Report [facility] [address] [place] [address] OFFICE VISIT Date of Service: 07/26/24 MR#: [id number] Acct: [id number] Name: AVERY VASQUEZ Rep #: [id number] : 1950 Provider: Dr. Jair loza MD Age/Sex: 74/M Location[place] [email or web address] Status: Signed Intake Vital Signs 07/06/24 17:55 [...] History Other Cancer Heart disease Social History (Reviewed 07/26/24 @ 08:25 by Ana Blanton Smoking Status: Never smoker alcohol intake: current [...] breath. -> The patient was transferred to [place] for a brain bleed at the time. Supplemental Info [facility] Imaging Services [address] [place] [id number] Chest, Abd, Pel w/Contrast MR#: [id number] Acct: [id number] Name: AVERY VASQUEZ Rep #: [id number] : 1950 M 74 From: Sanju Davenport MD PCP: Dr. Aidan Argueta MD Status: REG ER Study: CT Chest, Abd, Pel w/Contrast Date of Exam: 06/26/24 Exam# [id number] Ordering Dr: Cindy Harrison DO ADDENDUM by Dr. Sanju Davenport MD on 06/26/24 at 1254 ADDENDUM [id number] This is an addendum report. I suspect a nondisplaced fracture o (more content not included)... [facility] 36on 07-24-2024 36 Relayed information to patient, and he verbalized understanding. [facility] [address] Teddy rf[address]. CT head from the hospital on 07/08 appears stable with no new hemorrhage. He may follow up with us on an as needed basis. [facility] 36on 07-23-2024 36 Patient reports andrew pittman [...] He denies any symptoms such as headaches. [facility] Office Visiton 07-23-2024 Follow-up visit [id number] Avery Vasquez 1950 M Date Provider Department Center 07/23/2024 [id number] CACERES [facility] None No family history on file Level of Service:58584 UT OFFICE/OUTPATIENT NEW LOW MDM 30 MINUTES Reason for Visit and Comments: New Patient [542] - Pt is here to follow up from a hospital admission on 07/06/24. Pt was diagnosed with a PE. He says he is doing a lot better. 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 I have personally reviewed all pertinent labs and imaging. Assessment & Plan: Bilateral PE, provoked - outside CTA chest 07/06/24 from [place] reviewed in PACS, bilateral segmental filling defects identified along with cardiomegaly and increased main PA diameter, no obvious nodules/masses - he was started on heparin infusion appropriately given recent traumatic SAH/SDH, repeat head CT 07/08/24 showed tiny right parietal SDH unchanged and no new areas of bleeding - inpatient consult service evaluated patien (more content not included)... Normal [facility] 30on 07-12-2024 30 Problem: Pain - Adul [...] integrity is maintained or improved Outcome: Progressing [facility] 30 Problem: Pain - Adul t Goal: [...] integrity is maintained or improved Outcome: Progressing [facility] [id number] 07-12-2024 [id number] Next Site of Care Admission Date: 07/06/2024 10:23 PM Patient Name: AVERY VASQUEZ Location: [facility] [address] [facility] [id number] B Date of : 1950 -- Placement Information -- Referral Type:Home Health Care Services - Resume Referral ID:[id number] Provider [facility] Address 2: City:[place] Selection Factors:Active with Agency State:[place] Normal [facility] 36on 07-12-2024 36 PC to patient to [facility] a follow up appointment however call dropped and [facility]. Patient currently admitted at [facility]. He returned call to the office from hospital phone reporting that his cell phone does not carry a signal. HFU scheduled in [place] with Dr. Rhoades per location request. Patient request appointment reminder be emailed to him at email on file in EMR. Normal [facility] BASIC METABOLIC PANELon 11-0 Anion gap [Moles/Vol] 8 mmol/L Normal 3-13 [facility] Comment on above: Performed By: #### L AB15 ####Calciminer: GATO GRAY ([id number])[facility] [place] [address] Calcium [Mass/Vol] 9.6 mg/dL Normal 8.4-10.4 [facility] Comment on above: Performed By: #### L AB15 ####Calciminer: GATO GRAY ([id number])[facility] [place] [address] [place] Chloride [Moles/Vol] 108 mmol/L High 98-107 [facility] Comment on above: Performed By: #### L AB15 ####Calciminer: GATO GRAY ([id number])[facility])[address] [place] [address] CO2 [Moles/Vol] 21 mmol/L Low 22-30 [facility] Comment on above: Performed By: #### L AB15 ####Calciminer: GATO GRAY ([id number])[facility])[address] [place] [address] Creatinine [Mass/Vol] 0.84 mg/dL Normal 0.66-1.25 [facility] Comment on above: Performed By: #### L AB15 ####Calciminer: GATO GRAY ([id number])[facility])[address] [place] [address] GLOMERULAR FILTRATION RATE ML/MIN/1.73 SQ M.PREDICTED >90.0 Normal >60.0 [facility] Comment on above: Result Comment: Calc ulation based on the Chronic Kidney Disease Epidemiology Collaboration (CKD-EPI) equation refit without adjustment for race Performed By: #### L AB15 ####Calciminer: GATO GRAY ([id number])[facility])[address] [place] [address] [place] Glucose [Mass/Vol] 143 mg/dL High 70-100 [facility] Comment on above: Performed By: #### L AB15 ####Calciminer: GATO GRAY ([id number])[facility])[address] [place] [address] Potassium [Moles/Vol] 4.2 mmol/L Normal 3.5-5.1 [facility] Comment on above: Performed By: #### L AB15 ####Calciminer: GATO GRAY ([id number])[facility])[address] [place] [address] Sodium [Moles/Vol] 137 mmol/L Normal 135-145 [facility] Comment on above: Performed By: #### L AB15 ####Calciminer: GATO GRAY ([id number])[facility])[address] [place] [address] Urea nitrogen [Mass/Vol] 15 mg/dL Normal 9-20 [facility] Comment on above: Performed By: #### L AB15 ####Calciminer: GATO GRAY ([id number])[facility])[address] [place] [address] Bacteria identified Aer cx N om (Lower resp)Ordered By: Mary Jo Ngo on 07-12-2024 Gram Stain Result Many Polymorphonucle ar leukocytes per low power field Abnormal [facility] Gram Stain Result Few Epithelial cells per low power field Abnormal [facility] Gram Stain Result Positive Abnormal [facility] Gram Stain Result Negative Abnormal [facility] Interpretation and review of laboratory results Abnormal [facility] Basic metabolic 1998 panelon 07-12-2024 Anion gap [Moles/Vol] 8 mmol/L 3 - 13 mmol/L [facility] Calcium [Mass/Vol] 9.6 mg/dL 8.4 - 10. 4 mg/dL [facility] Chloride [Moles/Vol] 108 mmol/L High 98 - 10 7 mmol/L [facility] CO2 [Moles/Vol] 21 mmol/L Low 22 - 30 mmol/L [facility] Creatinine [Mass/Vol] 0.84 mg/dL 0.66 - 1.25 mg/dL [facility] GFR/1.73 sq M.predicted (S/P/Bld) [Vol rate/Area] - PINF [facility] Comment on above: Calculation based on the Chronic Kidney Disease Epidemiology Collaboration (CKD-EPI) equation refit without adjustment for race Glucose [Mass/Vol] 143 mg/dL High 70 - 100 mg/dL [facility] Interpretation and review of laboratory results Abnormal [facility] Potassium [Moles/Vol] 4.2 mmol/L 3.5 - 5.1 mmol/L [facility] Sodium [Moles/Vol] 137 mmol/L 135 - 145 mmol/L [facility] Urea nitrogen [Mass/Vol] 15 mg/dL 9 - 20 mg/dL [facility] CBC (HEMOGRAM)on 07-12-2024 Erythrocyte distribution width (RBC) [Ratio] 14.2 % Normal 11.5-15.0 [facility] Comment on above: Performed By: #### L [id number] ####Calciminer: GATO GRAY ([id number])[facility])[address] [place] [address] Hematocrit (Bld) [Volume fraction] 32.6 % Low 40.0-52.0 [facility] Comment on above: Performed By: #### L AB294 ####Calciminer: GATO GRAY ([id number])[facility])[address] [place] [address] Hemoglobin (Bld) [Mass/Vol] 10.7 g/dL Low 13.0-18.0 [facility] Comment on above: Performed By: #### L AB294 ####Calciminer: GATO GRAY ([id number])[facility])[address] [place] [address] MCH (RBC) [Entitic mass] 29.6 pg Normal 26.0-34.[address] [facility] Comment on above: Performed By: #### L AB294 ####Calciminer: GATO GRAY ([id number])[facility])[address] [place] [address] MCHC 32.8 % Normal 30.5-36.[address] [facility] Comment on above: Performed By: #### L AB294 ####Calciminer: GATO GRAY ([id number])[facility])[address] [place] [address] MCV (RBC) [Entitic vol] 90.1 fL Normal 77.0-99.0 [facility] Comment on above: Performed By: #### L [id number] ####Calciminer: GATO GRAY ([id number])[facility])[address] [place] [address] Platelet mean volume (Bld) [Entitic vol] 9.3 fL Normal 9.0-12.7 [facility] Comment on above: Performed By: #### L [id number] ####Calciminer: GATO GRAY ([id number])[facility])[address] [place] [address] Platelets (Bld) [#/Vol] 269 10*3/uL Normal 140-440 [facility] Comment on above: Performed By: #### L AB294 ####Calciminer: GATO GRAY ([id number])[facility])[address] [place] [address] RBC (Bld) [#/Vol] 3.62 10*6/uL Low 4.40-5.90 [facility] Comment on above: Performed By: #### L AB294 ####Calciminer: GATO GRAY ([id number])[facility])[address] [place] [address] WBC (Bld) [#/Vol] 7.9 10*3/uL Normal 3.6-10.7 [facility] Comment on above: Performed By: #### L [id number] ####Calciminer: GATO GRAY ([id number])[facility])[address] [place] [address] CBC panel Auto (Bld)on 07-12 Erythrocyte distribution width (RBC) [Ratio] 14.2 % 11.5 - 15.0 % [facility] Hematocrit (Bld) [Volume fraction] 32.6 % Low 40.0 - 52.0 % [facility] Hemoglobin (Bld) [Mass/Vol] 10.7 g/dL Low 13.0 - 18.0 g/dL [facility] Interpretation and review of laboratory results Abnormal [facility] MCH (RBC) [Entitic mass] 29.6 pg 26.0 - 34.0 pg [facility] MCHC (RBC) [Mass/Vol] 32.8 % 30.5 - 36.0 % [facility] MCV (RBC) [Entitic vol] 90.1 fL 77.0 - 99.0 fL [facility] Platelet mean volume (Bld) [Entitic vol] 9.3 fL 9.0 - 12.7 fL [facility] Platelets (Bld) [#/Vol] 269 10*3/uL 140 - 440 10*3/uL [facility] RBC (Bld) [#/Vol] 3.62 10*6/uL Low 4.40 - 5.90 10*6/uL [facility] WBC (Bld) [#/Vol] 7.9 10*3/uL 3.6 - 10.7 10*3/uL [facility] Laboratory - Chemistry and C hemistry - challengeon 07-12-2024 Glucose [Mass/Vol] 167 mg/dL High 70 - 100 mg/dL [facility] Glucose [Mass/Vol] 198 mg/dL High 70 - 100 mg/dL [facility] Glucose [Mass/Vol] 149 mg/dL High 70 - 100 mg/dL [facility] Laboratory - Microbiology an d Antimicrobial susceptibilityOrdered By: Mary Jo Ngo on 07-12-2024 Bacteria identified Aer cx Nom (Lower resp) Many respiratory yamilet present. [facility] No Panel Informationon 07-12 Interpretation and review of laboratory results Abnormal [facility] Performed by: [facility], [address] [place] [address] CLIA ID: [id number] [facility] Interpretation and review of laboratory results Abnormal [facility] Performed by: [facility], [address] [place] [id number] CLIA ID: [id number] [facility] Interpretation and review of laboratory results Abnormal [facility] Performed by: [facility], [address] [place] [address] CLIA ID: [id number] [facility] Progress Noteon 07-12-2024 Progress Note Nutrition update completed. Chart reviewed. Patient to be monitored and followed by the diet lead manufacturing technician. CODY Mitchell [facility] Progress Note PHYSICAL THERAPY [facility] Treatment Note Name/MRN: Avery Vasquez ([id number]) Date of : 1950 Age: 74 y.o. [...] Raw Score (No Stairs) : 15 JH-HLM -HLM Score: Walked 25 ft or [...] 08/06/24 Therapy Time Individual Co-treatment Time In 0907 Time Out 0943 Minutes 36 Timed Code Treatment Minutes: 36 Minutes (gait; fa) Katina Prather [facility] Progress Note ------ -- Attestation signed [...] care plan as documented above by my SUPERVISOR FABRICATION DEPARTMENT/PAMannyC. I personally discussed the review of systems [...] minutes (including chart/data review/analysis care coordination, and [id number]-skiz encounter), and was spent discussing/counseling the patient/family [...] record -Co-ord (more content not included)... Normal [facility] BASIC METABOLIC PANELon 11-0 Anion gap [Moles/Vol] 7 mmol/L Normal 3-13 [facility] Comment on above: Performed By: #### L AB15 ####Calciminer: GATO GRAY ([id number])[facility])[address] [place] [address] Calcium [Mass/Vol] 9.5 mg/dL Normal 8.4-10.4 [facility] Comment on above: Performed By: #### L AB15 ####Calciminer: GATO GRAY ([id number])[facility])[address] [place] [address] Chloride [Moles/Vol] 108 mmol/L High 98-107 [facility] Comment on above: Performed By: #### L AB15 ####Calciminer: GATO GRAY ([id number])[facility])[address] [place] [address] CO2 [Moles/Vol] 20 mmol/L Low 22-30 [facility] Comment on above: Performed By: #### L AB15 ####Calciminer: GATO GRAY ([id number])[facility])[address] [place] [address] Creatinine [Mass/Vol] 0.74 mg/dL Normal 0.66-1.25 [facility] Comment on above: Performed By: #### L AB15 ####Calciminer: GATO GRAY ([id number])[facility])[address] [place] [address] GLOMERULAR FILTRATION RATE ML/MIN/1.73 SQ M.PREDICTED >90.0 Normal >60.0 [facility] Comment on above: Result Comment: Calc ulation based on the Chronic Kidney Disease Epidemiology Collaboration (CKD-EPI) equation refit without adjustment for race Performed By: #### L AB15 ####Calciminer: GATO GRAY ([id number])[facility] [place] [address] Glucose [Mass/Vol] 149 mg/dL High 70-100 [facility] Comment on above: Performed By: #### L AB15 ####Calciminer: GATO GRAY ([id number])[facility])[address] [place] [address] Potassium [Moles/Vol] 4.1 mmol/L Normal 3.5-5.1 [facility] Comment on above: Performed By: #### L AB15 ####Calciminer: GATO GRAY ([id number])[facility])[address] [place] [address] Sodium [Moles/Vol] 134 mmol/L Low 135-145 [facility] Comment on above: Performed By: #### L AB15 ####Calciminer: GATO GRAY ([id number])[facility])[address] [place] [address] Urea nitrogen [Mass/Vol] 16 mg/dL Normal 9-20 [facility] Comment on above: Performed By: #### L AB15 ####Calciminer: GATO GRAY ([id number])[facility])[address] [place] [address] BLOOD CULTUREon 07-11-2024 Bacteria identified Cx Nom (Bld) BLOOD CULTURE Reference No growth at 5 days ORDER COMMENTS: Blood Collection Site: Left Antecubital [ S = SUSCEPTIBLE R = RESISTANT I = INTERMEDIATE S-DD = Susceptible-dose dependent NS = Non-susceptible NO = No Interpretation ] [facility] Comment on above: Performed By: #### L [id number] ####Calciminer: GATO GRAY ([id number])[facility])[address] [place] [address] Bacteria identified Cx Nom (Bld) BLOOD CULTURE Reference No growth at 5 days ORDER COMMENTS: Blood Collection Site: Right Antecubital [ S = SUSCEPTIBLE R = RESISTANT I = INTERMEDIATE S-DD = Susceptible-dose dependent NS = Non-susceptible NO = No Interpretation ] [facility] Comment on above: Performed By: #### L AB462 ####Calciminer: GATO GRAY ([id number])[facility])[address] [place] [address] Basic metabolic 1998 panelon 07-11-2024 Anion gap [Moles/Vol] 7 mmol/L 3 - 13 mmol/L [facility] Calcium [Mass/Vol] 9.5 mg/dL 8.4 - 10. 4 mg/dL [facility] Chloride [Moles/Vol] 108 mmol/L High 98 - 10 7 mmol/L [facility] CO2 [Moles/Vol] 20 mmol/L Low 22 - 30 mmol/L [facility] Creatinine [Mass/Vol] 0.74 mg/dL 0.66 - 1.25 mg/dL [facility] GFR/1.73 sq M.predicted (S/P/Bld) [Vol rate/Area] - PINF [facility] Comment on above: Calculation based on the Chronic Kidney Disease Epidemiology Collaboration (CKD-EPI) equation refit without adjustment for race Glucose [Mass/Vol] 149 mg/dL High 70 - 100 mg/dL [facility] Interpretation and review of laboratory results Abnormal [facility] Potassium [Moles/Vol] 4.1 mmol/L 3.5 - 5.1 mmol/L [facility] Sodium [Moles/Vol] 134 mmol/L Low 135 - 145 mmol/L [facility] Urea nitrogen [Mass/Vol] 16 mg/dL 9 - 20 mg/dL [facility] CBC (HEMOGRAM)on 07-11-2024 Erythrocyte distribution width (RBC) [Ratio] 14.2 % Normal 11.5-15.0 [facility] Comment on above: Performed By: #### L [id number] ####Calciminer: GATO GRAY ([id number])[facility])[address] [place] [address] Hematocrit (Bld) [Volume fraction] 32.2 % Low 40.0-52.0 [facility] Comment on above: Performed By: #### L AB294 ####Calciminer: GATO GRAY ([id number])[facility])[address] [place] [address] Hemoglobin (Bld) [Mass/Vol] 10.6 g/dL Low 13.0-18.0 [facility] Comment on above: Performed By: #### L AB294 ####Calciminer: GATO GRAY ([id number])[facility])[address] [place] [address] MCH (RBC) [Entitic mass] 29.4 pg Normal 26.0-34.0 [facility] Comment on above: Performed By: #### L AB294 ####Calciminer: GATO GRAY ([id number])[facility])[address] [place] [address] MCHC 32.9 % Normal 30.5-36.0 [facility] Comment on above: Performed By: #### L AB294 ####Calciminer: GATO GRAY ([id number])[facility])[address] [place] [address] MCV (RBC) [Entitic vol] 89.2 fL Normal 77.0-99.0 [facility] Comment on above: Performed By: #### L AB294 ####Calciminer: GATO GRAY ([id number])[facility])[address] [place] [address] Platelet mean volume (Bld) [Entitic vol] 9.2 fL Normal 9.0-12.7 [facility] Comment on above: Performed By: #### L AB294 ####Calciminer: GATO GRAY ([id number])[facility])[address] [place] [address] Platelets (Bld) [#/Vol] 224 10*3/uL Normal 140-440 [facility] Comment on above: Performed By: #### L AB294 ####Calciminer: GATO GRAY ([id number])[facility])[address] [place] [address] RBC (Bld) [#/Vol] 3.61 10*6/uL Low 4.40-5.90 [facility] Comment on above: Performed By: #### L AB294 ####Calciminer: GATO GRAY ([id number])[facility])[address] [place] [address] WBC (Bld) [#/Vol] 6.8 10*3/uL Normal 3.6-10.7 [facility] Comment on above: Performed By: #### L AB294 ####Calciminer: GATO GRAY ([id number])[facility] [place] [address] CBC panel Auto (Bld)on 07-11 Erythrocyte distribution width (RBC) [Ratio] 14.2 % 11.5 - 15.0 % [facility] Hematocrit (Bld) [Volume fraction] 32.2 % Low 40.0 - 52.0 % [facility] Hemoglobin (Bld) [Mass/Vol] 10.6 g/dL Low 13.0 - 18.0 g/dL [facility] Interpretation and review of laboratory results Abnormal [facility] MCH (RBC) [Entitic mass] 29.4 pg 26.0 - 34.0 pg [facility] MCHC (RBC) [Mass/Vol] 32.9 % 30.5 - 36.0 % [facility] MCV (RBC) [Entitic vol] 89.2 fL 77.0 - 99.0 fL [facility] Platelet mean volume (Bld) [Entitic vol] 9.2 fL 9.0 - 12.7 fL [facility] Platelets (Bld) [#/Vol] 224 10*3/uL 140 - 440 10*3/uL [facility] RBC (Bld) [#/Vol] 3.61 10*6/uL Low 4.40 - 5.90 10*6/uL [facility] WBC (Bld) [#/Vol] 6.8 10*3/uL 3.6 - 10.7 10*3/uL [facility] Laboratory - Chemistry and C hemistry - challengeon 07-11-2024 Glucose [Mass/Vol] 183 mg/dL High 70 - 100 mg/dL [facility] Glucose [Mass/Vol] 131 mg/dL High 70 - 100 mg/dL [facility] Glucose [Mass/Vol] 209 mg/dL High 70 - 100 mg/dL [facility] Glucose [Mass/Vol] 311 mg/dL High 70 - 100 mg/dL [facility] No Panel Informationon 07-11 Interpretation and review of laboratory results Abnormal [facility]: [facility], [address] [place] [address] CLIA ID: [id number] [facility] Interpretation and review of laboratory results Abnormal [facility] Performed by: [facility], [address] [place] [address] CLIA ID: [id number] [facility] Interpretation and review of laboratory results Abnormal [facility] Performed by: [facility], [address] [place] [address], [facility] [address] CLIA ID: [id number] [facility] Interpretation and review of laboratory results Abnormal [facility] Performed by: [facility], [address] [place] [address], [facility] [address] CLIA ID: [id number] [facility] Progress Noteon 07-11-2024 Progress Note PHYSICAL THERAPY [facility] Treatment Note Name/MRN: Avery Vasquez ([id number]) Date of : 1950 Age: 74 y.o. Room/Bed: T2-212/T2-212 A Discharge Recommendation: Home with assist PRN, [...] Minutes 28 Gait, FA Alisha Chowdhury, PT [facility] Progress Note ------ -- Attestation signed by Ashli Luna MD at 07/13/2024 9:15 PM ATTENDING ADDENDUM Patient Active Problem List Diagnosis Intracranial bleeding (HCC) Closed fracture of multiple ribs of right side with routine healing Traumatic closed fracture of distal clavicle with minimal displacement, right, initial encounter Acute pulmonary embolism without acute cor pulmonale, unspecified pulmonary embolism type (HCC) I personally supervised the resident/SUPERVISOR FABRICATION DEPARTMENT/JOSE DE JESUS in the evaluation and development [...] MD Division of Trauma Department of Surgery [facility] Pager: [phone] -- Daily Trauma Progress Note Resident 07/11/2024 [...] segmental PEs. He was transferred here from [facility] for further management. INJURIES: -Bilateral segmental PEs [...] MEDICATIONS: Current Fa (more content not included)... Normal [facility] 30on 07-10-2024 Problem: Pain - Adul t [...] Nutritional status is improving Outcome: Progressing Normal [facility] [address] Transfer Med Reconciliation (resume home meds if able, convert to PO if able) Complete Antibiotics (name, indication, duration, convert to PO if able) Yes, addressed in today's progress note Steroid (indication, duration, convert to PO if able) None Anticipated [place] Medications (ICU initiated) or Dose Changes and [...] hours of ICU transfer, page for clarifications. [facility] 30 The patient is Moder ately Stable [...] is maintained or improved Outcome: Progressing Normal [facility] [id number] 07-10-2024 [id number] Patient is currently active with [facility]. The patients current certification period will on 08/26/24. The patient is currently receiving SN/PT services through the agency. Senior Production Manager to continue to follow. [facility] [id number] 07-10-2024 [id number] Patient Choice Patient Name: AVERY VASQUEZ Date of : 1950 [facility] BASIC METABOLIC PANELon 11-0 Anion gap [Moles/Vol] 6 mmol/L Normal 3-13 [facility] Comment on above: Performed By: #### L AB15 ####Calciminer: GATO GRAY ([id number])[facility] ([address] Calcium [Mass/Vol] 9.3 mg/dL Normal 8.4-10.4 [facility] Comment on above: Performed By: #### L AB15 ####Calciminer: GATO GRAY ([id number])[facility])[address] [place] [address] [place] Chloride [Moles/Vol] 109 mmol/L High 98-107 [facility] Comment on above: Performed By: #### L AB15 ####Calciminer: GATO GRAY ([id number])[facility] [place] [address] CO2 [Moles/Vol] 20 mmol/L Low 22-30 [facility] Comment on above: Performed By: #### L AB15 ####Calciminer: GATO GRAY ([id number])[facility] [place] [address] Creatinine [Mass/Vol] 0.62 mg/dL Low 0.66-1.25 [facility] Comment on above: Performed By: #### L AB15 ####Calciminer: GATO GRAY ([id number])[facility] [place] [address] GLOMERULAR FILTRATION RATE ML/MIN/1.73 SQ M.PREDICTED >90.0 Normal >60.0 [facility] Comment on above: Result Comment: Calc ulation based on the Chronic Kidney Disease Epidemiology Collaboration (CKD-EPI) equation refit without adjustment for race Performed By: #### L AB15 ####Calciminer: GATO GRAY ([id number])[facility] [place] [address] [place] Glucose [Mass/Vol] 131 mg/dL High 70-100 [facility] Comment on above: Performed By: #### L AB15 ####Calciminer: GATO GRAY ([id number])[facility] [place] [address] [place] Potassium [Moles/Vol] 4.3 mmol/L Normal 3.5-5.1 [facility] Comment on above: Performed By: #### L AB15 ####Calciminer: GATO [id number])[facility] [place] [address] [place] Sodium [Moles/Vol] 135 mmol/L Normal 135-145 [facility] [facility] Comment on above: Performed By: #### L [id number] ####Calciminer: GATO GRAY ([id number])[address] Urea nitrogen [Mass/Vol] 17 mg/dL Normal 9-20 [facility] Comment on above: Performed By: #### L [id number] ####Calciminer: GATO GRAY ([id number])[facility])[address] [place] [address] Basic metabolic 1998 panelon 07-10-2024 Anion gap [Moles/Vol] 6 mmol/L 3 - 13 mmol/L [facility] Calcium [Mass/Vol] 9.3 mg/dL 8.4 - 10. 4 mg/dL [facility] Chloride [Moles/Vol] 109 mmol/L High 98 - 10 7 mmol/L [facility] CO2 [Moles/Vol] 20 mmol/L Low 22 - 30 mmol/L [facility] Creatinine [Mass/Vol] 0.62 mg/dL Low 0.66 - 1.25 mg/dL [facility] GFR/1.73 sq M.predicted (S/P/Bld) [Vol rate/Area] - PINF [facility] Comment on above: Calculation based on the Chronic Kidney Disease Epidemiology Collaboration (CKD-EPI) equation refit without adjustment for race Glucose [Mass/Vol] 131 mg/dL High 70 - 100 mg/dL [facility] Interpretation and review of laboratory results Abnormal [facility] Potassium [Moles/Vol] 4.3 mmol/L 3.5 - 5.1 mmol/L [facility] Sodium [Moles/Vol] 135 mmol/L 135 - 145 mmol/L [facility] Urea nitrogen [Mass/Vol] 17 mg/dL 9 - 20 mg/dL [facility] CBC (HEMOGRAM)on 07-10-2024 Erythrocyte distribution width (RBC) [Ratio] 14.4 % Normal 11.5-15.0 [facility] Comment on above: Performed By: #### L [id number] ####Calciminer: GATO GRAY ([id number])[facility])[address] [place] [address] Hematocrit (Bld) [Volume fraction] 31.3 % Low 40.0-52.0 [facility] Comment on above: Performed By: #### L [id number] ####Calciminer: GATO GRAY ([id number])[facility])[address] [place] [address] Hemoglobin (Bld) [Mass/Vol] 10.2 g/dL Low 13.0-18.0 [facility] Comment on above: Performed By: #### L [id number] ####Calciminer: GATO GRAY ([id number])[facility])[address] [place] [address] MCH (RBC) [Entitic mass] 28.9 pg Normal 26.0-34.0 [facility] Comment on above: Performed By: #### L [id number] ####Calciminer: GATO GRAY ([id number])[facility])[address] [place] [address] MCHC 32.6 % Normal 30.5-36.0 [facility] Comment on above: Performed By: #### L [id number] ####Calciminer: GATO GRAY ([id number])[facility])[address] [place] [address] MCV (RBC) [Entitic vol] 88.7 fL Normal 77.0-99.0 S [facility] Comment on above: Performed By: #### L [id number] ####Calciminer: GATO GRAY ([id number])[facility])[address] [place] [address] Platelet mean volume (Bld) [Entitic vol] 9.7 fL Normal 9.0-12.7 [facility] Comment on above: Performed By: #### L [id number] ####Calciminer: GATO GRAY ([id number])[facility])[address] [place] [address] Platelets (Bld) [#/Vol] 185 10*3/uL Normal 140-440 [facility] Comment on above: Performed By: #### L [id number] ####Calciminer: GATO GRAY ([id number])[facility])[address] [place] [address] RBC (Bld) [#/Vol] 3.53 10*6/uL Low 4.40-5.90 [facility] Comment on above: Performed By: #### L [id number] ####Calciminer: GATO GRAY ([id number])[facility])[address] [place] [address] WBC (Bld) [#/Vol] 6.1 10*3/uL Normal 3.6-10.7 [facility] Comment on above: Performed By: #### L [id number] ####Calciminer: GATO GRAY ([id number])[address] CBC panel Auto (Bld)on 07-10 Erythrocyte distribution width (RBC) [Ratio] 14.4 % 11.5 - 15.0 % [facility] Hematocrit (Bld) [Volume fraction] 31.3 % Low 40.0 - 52.0 % [facility] Hemoglobin (Bld) [Mass/Vol] 10.2 g/dL Low 13.0 - 18.0 g/dL [facility] Interpretation and review of laboratory results Abnormal [facility] MCH (RBC) [Entitic mass] 28.9 pg 26.0 - 34.0 pg [facility] MCHC (RBC) [Mass/Vol] 32.6 % 30.5 - 36.0 % [facility] MCV (RBC) [Entitic vol] 88.7 fL 77.0 - 99.0 fL [facility] Platelet mean volume (Bld) [Entitic vol] 9.7 fL 9.0 - 12.7 fL [facility] Platelets (Bld) [#/Vol] 185 10*3/uL 140 - 440 10*3/uL [facility] RBC (Bld) [#/Vol] 3.53 10*6/uL Low 4.40 - 5.90 10*6/uL [facility] WBC (Bld) [#/Vol] 6.1 10*3/uL 3.6 - 10.7 10*3/uL [facility] COMPLETE URINALYSISon 2023 BILIRUBIN, TOTAL PRESENCE IN URINE Negative Normal Negative [facility] Comment on above: Performed By: #### L [id number] ####Calciminer: GATO GRAY ([id number])[facility])[address] [place] [address] Clarity (U) Clear Normal Clear [facility] Comment on above: Performed By: #### L [id number] ####Calciminer: GATO GRAY ([id number])[facility])[address] [place] [address] Color (U) Light Yellow Normal Lt. Yellow [facility] Comment on above: Performed By: #### L [id number] ####Calciminer: GATO GRAY ([id number])[facility])[address] [place] [address] Glucose (U) [Mass/Vol] 30 mg/dL Normal Bindu l (<70) [facility] Comment on above: Performed By: #### L [id number] ####Calciminer: GATO GRAY ([id number])[facility])[address] [place] [address] HEMOGLOBIN PRESENCE IN URINE Negative Normal Negative [facility] Comment on above: Performed By: #### L [id number] ####Calciminer: GATO GRAY ([id number])[facility])[address] [place] [address] Ketones Ql (U) Negative Normal Negative [facility] Comment on above: Performed By: #### L [id number] ####Calciminer: GATO GRAY ([id number])[facility])[address] [place] [address] LEUKOCYTE ESTERASE PRESENCE IN URINE BY TEST STRIP Negative Normal Negative [facility] Comment on above: Performed By: #### L [id number] ####Calciminer: GATO GRAY ([id number])[facility])[address] [place] [address] NITRITE PRESENCE IN URINE Negative Normal Negative [facility] Comment on above: Performed By: #### L [id number] ####Calciminer: GATO GRAY ([id number])[facility])[address] [place] [address] pH (U) 6.0 [pH] Normal 5.0-8.0 [facility] Comment on above: Performed By: #### L [id number] ####Calciminer: GATO GRAY ([id number])[facility])[address] [place] [address] Protein (U) [Mass/Vol] Negative Normal Negative [facility] Comment on above: Performed By: #### L [id number] ####Calciminer: GATO GRAY ([id number])[facility])[address] [place] [address] Specific gravity (U) [Rel density] 1.012 Normal 1.005-1.03 0 [facility] Comment on above: Performed By: #### L [id number] ####Calciminer: GATO GRAY ([id number])[facility])[address] [place] [address] UROBILINOGEN (MG/DL) IN URINE Normal Normal Normal (0-1) [facility] Comment on above: Performed By: #### L [id number] ####Calciminer: GATO GRAY ([id number])[facility])[address] [place] [address] Consulton 07-10-2024 Consult [facility] - Infectious Diseases Attending Consult [...] diagnosed with bilateral PE, and transferred to [facility], febrile, and infectious workup done+ GNR BSI [...] 160 mg 160 mg Oral Daily Leny Hughes, DO 160 mg at 07/10/24 0921 vancomycin [...] and Sexual Activity Alcohol use: Yes Comment: [facility] Drug use: Never Sexual activity: Not on [...] for di (more content not included)... Normal [facility] Consult Pharmacy Managed Vancomycin Dosing Service Consult [...] (last 12 hours) Date/Time Action Medication Dose 07/09/24 2215 Given mupirocin (Bactroban) 2 % ointment 1 Application 1 Application Assessment/Plan: Doses, serum creatinine, and vancomycin levels interfaced automatically to [employer] and data has been analyzed and interpreted. [...] DATE: 07/10/24 TIME: 6:09 AM Davi Barclay [facility] Clinical Pharmacist Available via Secure Chat Normal [facility] LACTIC ACID WITH REFLEXon Lactate [Moles/Vol] 0.8 mmol/L Normal 0.7-2.0 [facility] Comment on above: Performed By: #### L [id number] ####Calciminer: GATO GRAY ([id number])[facility])[address] [place] [address] LEGIONELLA AND STREPTOCOCCUS URINE ANTIGENon 07-10-2024 LEGIONELLA AND STREPTOCOCCUS URINE ANTIGEN LEGIONELLA PNEUMOPHILA URINE ANTIGEN Reference Not Detected Not Detected STREPTOCOCCUS PNEUMONIAE URINE ANTIGEN Reference Not Detected Not Detected ORDER COMMENTS: Methodology: Lateral flow enzyme immunoassay This assay is approved for detection of antigens to Streptococcus pneumoniae and Legionella pneumophila serogroup 1; however, other L. pneumophila serogroups may also be detected. Normal [facility] Comment on above: Performed By: #### L [id number] ####Calciminer: GATO GRAY ([id number])[facility])[address] [place] [address] Laboratory - Chemistry and C hemistry - challengeon 07-10-2024 Glucose [Mass/Vol] 139 mg/dL High 70 - 100 mg/dL [facility] Glucose [Mass/Vol] 139 mg/dL High 70 - 100 mg/dL [facility] Glucose [Mass/Vol] 272 mg/dL High 70 - 100 mg/dL [facility] Lactate [Moles/Vol] 0.8 mmol/L 0.7 - 2. 0 mmol/L [facility] MRSA BY PCRon 07-10-2024 MRSA BY PCR [...] modified and its performance characteristics determined by [facility]. The U. S. Food and Drug Administration has not approved or cleared this test; however, FDA clearance or approval is not currently required for clinical use. The results are not intended to be used as the sole means for clinical diagnosis or patient management decisions. Normal [facility] Comment on above: Performed By: #### L [id number] ####Calciminer: GATO GRAY ([id number])[facility])[address] [place] [address] MRSA DNA NILDA+probe Ql (Nose) on 07-10-2024 Interpretation and review of laboratory results Normal [facility] mecA gene Not detected Not Detected [facility] Staphylococcus aureus Not detected Not Detected [facility] No Staphylococcus au reus detected. Negative nasal MRSA PCR has a high negative predictive value for MRSA pneumonia. Consider stopping Vancomycin if no other clinical indication. Contact Antimicrobial Stewardship for further recommendations. Staphylococcus aureus nasal screen by real-time PCR. This test was modified and its performance characteristics determined by [facility]. The U. S. Food and Drug Administration has not approved or cleared this test; however, FDA clearance or approval is not currently required for clinical use. The results are not intended to be used as the sole means for clinical diagnosis or patient management decisions. [facility] No Panel Informationon 07-10 Interpretation and review of laboratory results Abnormal [facility] Performed by: [facility], [address] [place] [address] CLIA ID: [id number] [facility] Interpretation and review of laboratory results Abnormal [facility] Performed by: [facility], [address] [place] [address] CLIA ID: [id number] [facility] Interpretation and review of laboratory results Normal [facility] Legionella pneumophila Ag Not detected Not Detected [facility] Streptococcus pneumoniae Ag Not detected Not Detected [facility] Methodology: Lateral flow enzyme immunoassay This assay is approved for detection of antigens to Streptococcus pneumoniae and Legionella pneumophila serogroup 1; however, other L. pneumophila serogroups may also be detected. [facility] Interpretation and review of laboratory results Abnormal [facility] Performed by: [facility], [address] [place] [address] CLIA ID: [id number] [facility] Interpretation and review of laboratory results Normal [facility] PNEUMONIA PCR PANELon 2023 PNEUMONIA PCR PANEL [...] positive Coronavirus (not SARS-CoV-2) result on the [employer] Pneumonia PCR Panel should be taken in the context of other clinical data as increased false positive detection has been noted by the supervisor building maintenance. Consider collecting a nasopharyngeal sample for the Respiratory Pathogens Panel by PCR if clinically indicated. Methodology: Multiplex PCR This panel does not test for SARS-CoV-2 (Covid-19). The following antimicrobial resistance gene is reported if the appropriate organism is detected: mecA. The following antimicrobial resistance genes are reported if detected and the appropriate organisms are detected: CTX-M, IMP, KPC, NDM, OXA-48-like, and VIM. Normal [facility] Comment on above: Performed By: #### L [id number] ####Calciminer: GATO GRAY ([id number])[facility] [place] [address] Progress Noteon 07-10-2024 Progress Note Vancomycin therapy h as been discontinued by Leny Hughes DO on 07/10/24. Thank you for the consult. Pharmacy signing off for vancomycin dosing. Laquita Thomas [facility], PharmD Date: 07/10/24 Time: 11:32 AM Normal [facility] Progress Note PHYSICAL THERAPY [facility] Treatment Note Name/MRN: Avery Vasquez ([id number]) Date of : 1950 Age: 74 y.o. Room/Bed: T2-212/T2-212 A Discharge Recommendation: Home with assist PRN, [...] (x1 Gait, x1 FA) Yuly Constantino, PT [facility] Progress Note ------ -- Attestation signed by Ashli Luna MD at 07/13/2024 9:10 PM ATTENDING ADDENDUM Patient Active Problem List Diagnosis Intracranial bleeding (HCC) Closed fracture of multiple ribs of right side with routine healing Traumatic closed fracture of distal clavicle with minimal displacement, right, initial encounter Acute pulmonary embolism without acute cor pulmonale, unspecified pulmonary embolism type (HCC) I personally supervised the resident/SUPERVISOR FABRICATION DEPARTMENT/JOSE DE JESUS in the evaluation and development [...] tachycardic, tachypnea, encephalopathic yesterday, preliminary Bcx at [place] positive. No leukocytosis. Hold off on antibiotics [...] MD Division of Trauma Department of Surgery [facility] Pager: [phone] -- Daily Trauma Progress Note Resident 07/10/2024 [...] segmental PEs. He was transferred here from [facility] for further management. INJURIES: -Bilateral segmental PEs [...] Current Facility- (more content not included)... Normal [facility] RESPIRATORY CULTURE AND STAI Non 07-10-2024 RESPIRATORY [...] Non-susceptible NO = No Interpretation ] Normal [facility] Comment on above: Performed By: #### L [id number] #### Calciminer: GATO GRAY ([id number]) [facility] [address] [place] [address] RESPIRATORY PATHOGENS PANEL BY PCRon 07-10-2024 RESPIRATORY [...] Detected ORDER COMMENTS: Methodology: Multiplex PCR Normal [facility] Comment on above: Performed By: #### L [id number] ####Calciminer: GATO GRAY ([id number])[facility] [place] [address] Respiratory pathogens DNA an d RNA panel NILDA+non-probe (Lower resp)Ordered By: Ashley Black on 07-10-2024 Acinetobacter baumannii complex Not detected Not Detected [facility] Adenovirus Not detected Not Detected [facility] Chlamydia pneumoniae Not detected Not Detected [facility] Enterobacter cloacae complex Not detected Not Detected [facility] Escherichia coli Not detected Not Detected [facility] FLUAV RNA NILDA+non-probe Ql (Lower resp) Not detected Not Detected [facility] FLUBV RNA NILDA+non-probe Ql (Lower resp) Not detected Not Detected [facility] Haemophilus influenzae Detected Abnormal Not Detected [facility] Human Metapneumovirus Not detected Not Detected [facility] Human Rhinovirus/Enterovirus Not detected Not Detected [facility] Interpretation and review of laboratory results Abnormal [facility] Klebsiella (Enterobacter) aerogenes Not detected Not Detected [facility] Klebsiella oxytoca Not detected Not Detected [facility] Klebsiella pneumoniae Not detected Not Detected [facility] Legionella pneumophila Not detected Not Detected [facility] Moraxella catarrhalis Not detected Not Detected [facility] Mycoplasma pneumoniae Not detected Not Detected [facility] Parainfluenza virus Not detected Not Detected [facility] Proteus spp Not detected Not Detected [facility] Pseudomonas aeruginosa Not detected Not Detected [facility] RSV RNA NILDA+probe Ql (Resp) Not detected Not Detected [facility] S. agalactiae Org specific cx Ql (Vag fld) Not detected Not Detected [facility] SARS-CoV-2 (COVID-19) RNA NILDA+non-probe Ql (Nph) Not detected Not Detected [facility] SARS-CoV-2 (COVID-19) RNA NILDA+probe Ql (Unsp spec) A positive Coronavirus (not SARS-CoV-2) result on the [employer] Pneumonia PCR Panel should be taken in the context of other clinical data as increased false positive detection has been noted by the supervisor building maintenance. Consider collecting a nasopharyngeal sample for the Respiratory Pathogens Panel by PCR if clinically indicated. Methodology: Multiplex PCR This panel does not test for SARS-CoV-2 (Covid-19). The following antimicrobial resistance gene is reported if the appropriate organism is detected: mecA. The following antimicrobial resistance genes are reported if detected and the appropriate organisms are detected: CTX-M, IMP, KPC, NDM, OXA-48-like, and VIM. [facility] Serratia marcescens Not detected Not Detected [facility] Staphylococcus aureus Not detected Not Detected [facility] Streptococcus pneumoniae Not detected Not Detected [facility] Streptococcus pyogenes Not detected Not Detected [facility] Respiratory pathogens DNA an d RNA panel NILDA+non-probe (Nph)on 07-10-2024 Adenovirus Not detected Not Detected [facility] B. pertussis DNA NILDA+probe Ql (Unsp spec) Not detected Not Detected [facility] Bordetella parapertussis Not detected Not Detected [facility] Chlamydia pneumoniae Not detected Not Detected [facility] Coronavirus 229E Not detected Not Detected [facility] Coronavirus HKU1 Not detected Not Detected [facility] Coronavirus NL63 Not detected Not Detected [facility] Coronavirus OC43 Not detected Not Detected [facility] FLUAV RNA NILDA+non-probe Ql (Nph) Not detected Not Detected [facility] FLUBV RNA NILDA+non-probe Ql (Nph) Not detected Not Detected [facility] Human Metapneumovirus Not detected Not Detected [facility] Human Rhinovirus/Enterovirus Not detected Not Detected [facility] Interpretation and review of laboratory results Normal [facility] Mycoplasma pneumoniae Not detected Not Detected [facility] Parainfluenza 1 Not detected Not Detected [facility] Parainfluenza 2 Not detected Not Detected [facility] Parainfluenza 3 Not detected Not Detected [facility] Parainfluenza 4 Not detected Not Detected [facility] Respiratory Syncytial Virus Not detected Not Detected [facility] SARS-CoV-2 (COVID-19) RNA NILDA+non-probe Ql (Nph) Not detected Not Detected [facility] Methodology: Multiplex PCR [facility] Urinalysis complete panel (U )on 07-10-2024 Bilirubin Ql (U) Negative Negative mg/dL [facility] Clarity (U) Clear Clear [facility] Color (U) Light Yellow Lt. Yellow [facility] Glucose Ql (U) 30 mg/dL Normal (<70) [facility] Hemoglobin Ql (U) Negative Negative mg/dL [facility] Interpretation and review of laboratory results Normal [facility] Ketones (U) [Mass/Vol] Negative Negat scott mg/dL [facility] Leukocyte esterase Test strip Ql (U) Negative Negative Thao/uL [facility] Nitrite Ql (U) Negative Negative [facility] pH (U) 6.0 [pH] 5.0 - 8.0 pH [facility] Protein (U) [Mass/Vol] Negative Negat scott mg/dL [facility] Specific gravity (U) [Rel density] 1.012 1.005 - 1.030 [facility] Urobilinogen (U) [Mass/Vol] Normal Normal (0-1) mg/dL [facility] XR CHEST 1 VIEWon 07-10-2024 XR CHEST [...] Date/Time: 07/10/2024 7:39 AM EST Normal [facility] XR Chest Single viewon 07-10 Impression: As above. Report Dictated on Electronically Signed By: Brittany Phillips MD Electronically Signed Date/Time: 07/10/2024 7:39 AM [facility] Patient Name: AVERY VASQUEZ : [...] is present. Right-sided mid clavicular fracture noted. [facility] Brittany Phillips MD - 07/10/2024 [facility] Name: [facility] 1950 [id number] Exam Date/Time: 07/10/2024 07:34 Procedure: XR CHEST [...] Electronically Signed Date/Time: 07/10/2024 7:39 AM EST [facility] Radiology Study observation (narrative) [facility] XR Chest Single viewOrdered By: Brittany Phillips on 07-10-2024 [facility] Work Phone: [phone] 07-09-2024 36 Patient with pulmona ry emboli, started on eliquis. Needs follow up for pulmonary emboli in 2 weeks. Patient lives in [place] and would like to go to [place]. Thanks. Normal [facility] BASIC METABOLIC PANELon 11-0 Anion gap [Moles/Vol] 6 mmol/L Normal 3-13 [facility] Comment on above: Performed By: #### L [id number] ####Calciminer: GATO GRAY ([id number])[facility] Calcium [Mass/Vol] 9.1 mg/dL Normal 8.4-10.4 [facility] Comment on above: Performed By: #### L [id number] ####Calciminer: GATO GRAY ([id number])[facility] [place] [address] Chloride [Moles/Vol] 104 mmol/L Normal 98-107 [facility] Comment on above: Performed By: #### L AB15 ####Calciminer: GATO GRAY ([id number])[facility] [place] [address] [place] CO2 [Moles/Vol] 23 mmol/L Normal 22-30 [facility] Comment on above: Performed By: #### L AB15 ####Calciminer: GATO GRAY ([id number])[facility])[address] [place] [address] Creatinine [Mass/Vol] 0.78 mg/dL Normal 0.66-1.25 [facility] Comment on above: Performed By: #### L AB15 ####Calciminer: GATO GRAY ([id number])[facility])[address] [place] [address] GLOMERULAR FILTRATION RATE ML/MIN/1.73 SQ M.PREDICTED >90.0 Normal >60.0 [facility] Comment on above: Result Comment: Calc ulation based on the Chronic Kidney Disease Epidemiology Collaboration (CKD-EPI) equation refit without adjustment for race Performed By: #### L AB15 ####Calciminer: GATO GRAY ([id number])[facility] [place] [address] Glucose [Mass/Vol] 133 mg/dL High 70-100 [facility] Comment on above: Performed By: #### L [id number] ####Calciminer: GATO GRAY ([id number])[facility])[address] [place] [address] Potassium [Moles/Vol] 4.0 mmol/L Normal 3.5-5.1 [facility] Comment on above: Performed By: #### L AB15 ####Calciminer: GATO GRAY ([id number])[facility])[address] Sodium [Moles/Vol] 133 mmol/L Low 135-[address] [facility] Comment on above: Performed By: #### L AB15 ####Calciminer: GATO GRAY ([id number])[facility])[address] [place] [address] Urea nitrogen [Mass/Vol] 16 mg/dL Normal 9-[address] [facility] Comment on above: Performed By: #### L AB15 ####Calciminer: GATO GRAY ([id number])[facility])[address] [place] [address] Basic metabolic 1998 panelon 07-09-2024 Anion gap [Moles/Vol] 6 mmol/L 3 - 13 mmol/L [facility] Calcium [Mass/Vol] 9.1 mg/dL 8.4 - 10. 4 mg/dL [facility] Chloride [Moles/Vol] 104 mmol/L 98 - 10 7 mmol/L [facility] CO2 [Moles/Vol] 23 mmol/L 22 - 30 mmol/L [facility] Creatinine [Mass/Vol] 0.78 mg/dL 0.66 - 1.25 mg/dL [facility] GFR/1.73 sq M.predicted (S/P/Bld) [Vol rate/Area] - PINF [facility] Comment on above: Calculation based on the Chronic Kidney Disease Epidemiology Collaboration (CKD-EPI) equation refit without adjustment for race Glucose [Mass/Vol] 133 mg/dL High 70 - 100 mg/dL [facility] Interpretation and review of laboratory results Abnormal [facility] Potassium [Moles/Vol] 4 mmol/L 3.5 - 5.1 mmol/L [facility] Sodium [Moles/Vol] 133 mmol/L Low 135 - 145 mmol/L [facility] Urea nitrogen [Mass/Vol] 16 mg/dL 9 - 20 mg/dL [facility] CBC (HEMOGRAM)on 07-09-2024 Erythrocyte distribution width (RBC) [Ratio] 14.3 % Normal 11.5-15.0 [facility] Comment on above: Performed By: #### L [id number] ####Calciminer: GATO GRAY ([id number])[facility])[address] [place] [address] Hematocrit (Bld) [Volume fraction] 30.3 % Low 40.0-52.0 [facility] Comment on above: Performed By: #### L [id number] ####Calciminer: GATO GRAY ([id number])[facility])[address] [place] [address] Hemoglobin (Bld) [Mass/Vol] 10.0 g/dL Low 13.0-18.0 [facility] Comment on above: Performed By: #### L AB294 ####Calciminer: GATO GRAY ([id number])[facility])[address] [place] [address] MCH (RBC) [Entitic mass] 29.2 pg Normal 26.0-34.0 [facility] Comment on above: Performed By: #### L AB294 ####Calciminer: GATO GRAY ([id number])[facility])[address] [place] [address] MCHC 33.0 % Normal 30.5-36.0 [facility] Comment on above: Performed By: #### L [id number] ####Calciminer: GATO GRAY ([id number])[facility])[address] [place] [address] MCV (RBC) [Entitic vol] 88.6 fL Normal 77.0-99.0 [facility] Comment on above: Performed By: #### L [id number] ####Calciminer: GATO GRAY ([id number])[facility])[address] [place] [address] Platelet mean volume (Bld) [Entitic vol] 9.9 fL Normal 9.0-12.7 [facility] Comment on above: Performed By: #### L AB294 ####Calciminer: GATO GRAY ([id number])[facility])[address] [place] [address] Platelets (Bld) [#/Vol] 167 10*3/uL Normal 140-[address] [facility] Comment on above: Performed By: #### L [id number] ####Calciminer: GATO GRAY ([id number])[facility])[address] [place] [address] RBC (Bld) [#/Vol] 3.42 10*6/uL Low 4.40-5.90 [facility] Comment on above: Performed By: #### L [id number] ####Calciminer: GATO GRAY ([id number])[facility])[address] [place] [address] WBC (Bld) [#/Vol] 6.0 10*3/uL Normal 3.6-10.7 [facility] Comment on above: Performed By: #### L [id number] ####Calciminer: GATO GRAY ([id number])[address] CBC panel Auto (Bld)on 07-09 Erythrocyte distribution width (RBC) [Ratio] 14.3 % 11.5 - 15.0 % [facility] Hematocrit (Bld) [Volume fraction] 30.3 % Low 40.0 - 52.0 % [facility] Hemoglobin (Bld) [Mass/Vol] 10 g/dL Low 13.0 - 18.0 g/dL [facility] Interpretation and review of laboratory results Abnormal [facility] MCH (RBC) [Entitic mass] 29.2 pg 26.0 - 34.0 pg [facility] MCHC (RBC) [Mass/Vol] 33 % 30.5 - 36.0 % [facility] MCV (RBC) [Entitic vol] 88.6 fL 77.0 - 99.0 fL [facility] Platelet mean volume (Bld) [Entitic vol] 9.9 fL 9.0 - 12.7 fL [facility] Platelets (Bld) [#/Vol] 167 10*3/uL 140 - 440 10*3/uL [facility] RBC (Bld) [#/Vol] 3.42 10*6/uL Low 4.40 - 5.90 10*6/uL [facility] WBC (Bld) [#/Vol] 6 10*3/uL 3.6 - 10.7 10*3/uL [facility] ECG 12-LEADon 07-09-2024 ECG 12-LEAD IMPRESSION: Sinus rhythm Nonspecific intraventricular conduction delay Compared to ECG 07/07/2024 22:48:51 No significant changes Electronically Signed On 07-09-2024 16:26:31 EST by Audra Andres Normal [facility] Laboratory - Chemistry and C hemistry - challengeon 07-09-2024 Glucose [Mass/Vol] 229 mg/dL High 70 - 100 mg/dL [facility] Glucose [Mass/Vol] 131 mg/dL High 70 - 100 mg/dL [facility] Glucose [Mass/Vol] 161 mg/dL High 70 - 100 mg/dL [facility] Glucose [Mass/Vol] 246 mg/dL High 70 - 100 mg/dL [facility] No Panel Informationon 07-09 Interpretation and review of laboratory results Abnormal [facility] Performed by: [facility], [address] [place] [id number] CLIA ID: [id number] [facility] Interpretation and review of laboratory results Abnormal [facility] Performed by: [facility], [address] [place] [id number] CLIA ID: [id number] [facility] Sinus rhythm Nonspecific intraventricular conduction delay Compared to ECG 07/07/2024 22:48:51 No significant changes Electronically Signed On 07-09-2024 16:26:31 EST by Audra Andres CV Audra Alamo MD - 07/09/2024 IMPRESSION: Sinus rhythm Nonspecific intraventricular conduction delay Compared to ECG 07/07/2024 22:48:51 No significant changes Electronically Signed On 07-09-2024 16:26:31 EST by Audra Andres [facility] Interpretation and review of laboratory results Abnormal [facility] Performed by: [facility], [address] [place] [address] CLIA ID: [id number] [facility] Interpretation and review of laboratory results Abnormal [facility] Performed by: [facility], [address] [place] [id number] CLIA ID: [id number] [employer] No Panel InformationOrdered By: Soni Cervantesalla on 07-09-2024 Targets Detected Not detected [employer] Methodology: Multipl ex PCR The [employer] panel can detect the following organisms: E. [...] IMP, KPC, NDM, OXA-48-like, VIM, and mcr-1. [employer] No Panel InformationOrdered By: Audra Andres on 07-09-2024 P [place] 35 degrees [email or web address] Phone: UT Interval 189 ms [employer] Phone: QRS [place] 10 degrees [employer] Work Phone: QRSD Interval 117 ms [employer] Work Phone: QT Interval 398 ms [employer] Work Phone: QTC Interval 446 ms [employer] Work Phone: T Wave [place] 45 degrees [email or web address] Phone: [email or web address] Phone: Progress Noteon 07-09-2024 Progress Note ------ -- Attestation signed by Kvng Anderson MD at 07/09/2024 12:37 PM I have personally performed a [id number] diagnostic evaluation on this patient on date of service 07/09/24. History, labs, imaging studies, and electronic medical record have been reviewed by me. 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 Will arrange outpatient follow up (in [place] due to patient preference) to confirm safety and tolerance of anticoagulation and also consideration of course length. -- [facility] [address] [place] [address] Patient - Avery Vasquez, Age - 74 y.o. - 1950 Room Number - T2-212/T2-212 A Consulting - Diaan Stovall MD Primary Care Physician - [id number] Date of Admission - 07/06/2024 10:23 PM [...] the shower. Interval History Patient transitioned to eliquis. Patient reports his breathing feels good [...] mg/dL 0.78 (more content not included)... Normal [facility] Progress Note ------ -- Attestation signed by Ashli Luna MD at 07/13/2024 9:03 PM ATTENDING ADDENDUM Patient Active Problem List Diagnosis Intracranial bleeding (HCC) Closed fracture of multiple ribs of right side with routine healing Traumatic closed fracture of distal clavicle with minimal displacement, right, initial encounter Acute pulmonary embolism without acute cor pulmonale, unspecified pulmonary embolism type (HCC) I personally supervised the resident/SUPERVISOR FABRICATION DEPARTMENT/JOSE DE JESUS in the evaluation and development [...] results, and face to face with Avery Vsaquez discussing the diagnosis and importance of compliance with the treatment plan as well as documenting on the day of the visit. Ashli Luna MD Division of Trauma Department of Surgery [facility] Pager: [phone] -- Daily Trauma Progress Note Resident 07/09/2024 [...] segmental PEs. He was transferred here from [facility] for further management. INJURIES: -Bilateral segmental PEs [...] solution 12.5 (more content not included)... Normal [facility] Vital signsOrdered By: Kvng Andres on 07-09-2024 Heart rate 76 /min bpm [facility] Work Phone: 30on 07-08-2024 30 Problem: Discharge [...] is maintained or improved Outcome: Progressing Normal [facility] APTTon 07-08-2024 aPTT Coag (Bld) [Time] 52.1 s High 20.0-30.5 [facility] Comment on above: Result Comment: SONYA Gambino COMMENTS: NOTE: The therapeutic time for Heparin anticoagulation, based on Xa activity inhibition, is an APTT of 46-80 seconds. Performed By: #### L [id number] ####Calciminer: GATO GRAY ([id number])[address] aPTT Coag (Bld) [Time] 60.8 s High 20.0-30.5 [facility] Comment on above: Result Comment: SONYA Gambino COMMENTS: NOTE: The therapeutic time for Heparin anticoagulation, based on Xa activity inhibition, is an APTT of 46-80 seconds. Performed By: #### L AB325 ####Calciminer: GATO GRAY ([id number])[address] BASIC METABOLIC PANELon 11-0 Anion gap [Moles/Vol] 10 mmol/L Normal 3-13 [facility] Comment on above: Performed By: #### L 15, [id number] ####Calciminer: GATO GRAY ([id number])[facility])[address] [place] [address] Calcium [Mass/Vol] 9.0 mg/dL Normal 8.4-10.4 [facility] Comment on above: Performed By: #### Dalila SONG, [id number] ####Calciminer: GAOT GRAY ([id number])[facility] [place] [address] Chloride [Moles/Vol] 104 mmol/L Normal 98-107 [facility] Comment on above: Performed By: #### Dalila SONG, [id number] ####Calciminer: GATO GRAY ([id number])[facility] [place] [address] CO2 [Moles/Vol] 18 mmol/L Low 22-30 [facility] Comment on above: Performed By: #### Dalila SONG, [id number] ####Calciminer: AGTO GRAY ([id number])[facility])[address] [place] [address] Creatinine [Mass/Vol] 0.79 mg/dL Normal 0.66-1.25 [facility] Comment on above: Performed By: #### Dalila SONG, [id number] ####Calciminer: GATO GRAY ([id number])[facility])[address] [place] [address] GLOMERULAR FILTRATION RATE ML/MIN/1.73 SQ M.PREDICTED >90.0 Normal >60.0 [facility] Comment on above: Result Comment: Calc ulation based on the Chronic Kidney Disease Epidemiology Collaboration (CKD-EPI) equation refit without adjustment for race Performed By: #### L AB15, [id number] ####Calciminer: GATO GRAY ([id number])[facility] ([facility])[address] [place] [address] [place] Glucose [Mass/Vol] 145 mg/dL High 70-100 [facility] Comment on above: Performed By: #### L AB15, [id number] ####Calciminer: GATO GRAY ([id number])[facility])[address] [place] [address] Potassium [Moles/Vol] 4.0 mmol/L Normal 3.5-5.1 [facility] Comment on above: Performed By: #### L AB15, [id number] ####Calciminer: GATO GRAY ([id number])[facility])[address] [place] [address] Sodium [Moles/Vol] 132 mmol/L Low 135-145 [facility] Comment on above: Performed By: #### L AB15, [id number] ####Calciminer: GATO GRAY ([id number])[facility])[address] [place] [address] Urea nitrogen [Mass/Vol] 19 mg/dL Normal 9-20 [facility] Comment on above: Performed By: #### L AB15, [id number] ####Calciminer: GATO GRAY ([id number])[facility])[address] [place] [address] BLOOD CULTUREon 07-08-2024 Bacteria identified Cx Nom (Bld) BLOOD CULTURE (AA) Reference BACTEROIDES PYOGENES Bacteroides pyogenes (AA) For identification and/or sensitivity, refer to culture collected on: 07/08/24 at 0639(24[facility]-[id number]) This is an edited result. Previous organism was Gram-negative bacilli on 07/09/2024 at 2337 EST. ORDER COMMENTS: Blood Collection Site: Left Wrist [ S = SUSCEPTIBLE R = RESISTANT I = INTERMEDIATE S-DD = Susceptible-dose dependent NS = Non-susceptible NO = No Interpretation ] Normal [facility] Comment on above: Order Comment: Known bacteremia at outside hospital Performed By: #### L [id number] ####Calciminer: GATO GRAY ([id number])[facility] Bacteria identified Cx Nom (Bld) BLOOD CULTURE (AA) Reference BACTEROIDES PYOGENES Bacteroides pyogenes (AA) This is an edited result. Previous organism was Gram-negative bacilli on 07/09/2024 at 1940 EST. ORDER COMMENTS: Blood Collection Site: Right Forearm [ S = SUSCEPTIBLE R = RESISTANT I = INTERMEDIATE S-DD = Susceptible-dose dependent NS = Non-susceptible NO = No Interpretation ] [facility] Comment on above: Performed By: #### L [id number], [id number] ####Calciminer: GATO GRAY ([id number])[address] BLOOD CULTURE IDENTIFICATION - ANAEROBICon 07-08-2024 BLOOD CULTURE IDENTIFICATION - ANAEROBIC BCID TARGETS DETECTED Reference None Detected ORDER COMMENTS: Methodology: Multiplex PCR The [employer] BCID panel can detect the following organisms: [...] IMP, KPC, NDM, OXA-48-like, VIM, and mcr-1. [facility] Comment on above: Performed By: #### L [id number], [id number] ####Calciminer: GATO GRAY ([id number])[facility])[address] [place] [address] Basic metabolic 1998 panelon 07-08-2024 Anion gap [Moles/Vol] 10 mmol/L 3 - 13 mmol/L [facility] Calcium [Mass/Vol] 9 mg/dL 8.4 - 10. 4 mg/dL [facility] Chloride [Moles/Vol] 104 mmol/L 98 - 10 7 mmol/L [facility] CO2 [Moles/Vol] 18 mmol/L Low 22 - 30 mmol/L [facility] Creatinine [Mass/Vol] 0.79 mg/dL 0.66 - 1.25 mg/dL [facility] GFR/1.73 sq M.predicted (S/P/Bld) [Vol rate/Area] - PINF [facility] Comment on above: Calculation based on the Chronic Kidney Disease Epidemiology Collaboration (CKD-EPI) equation refit without adjustment for race Glucose [Mass/Vol] 145 mg/dL High 70 - 100 mg/dL [facility] Interpretation and review of laboratory results Abnormal [facility] Potassium [Moles/Vol] 4 mmol/L 3.5 - 5.1 mmol/L [facility] Sodium [Moles/Vol] 132 mmol/L Low 135 - 145 mmol/L [facility] Urea nitrogen [Mass/Vol] 19 mg/dL 9 - 20 mg/dL [facility] CBC (HEMOGRAM)on 07-08-2024 Erythrocyte distribution width (RBC) [Ratio] 14.4 % Normal 11.5-15.0 [facility] Comment on above: Performed By: #### L [id number] ####Calciminer: GATO [id number])[address] Hematocrit (Bld) [Volume fraction] 32.8 % Low 40.0-52.[address] [facility] Comment on above: Performed By: #### L [id number] ####Calciminer: GATO [id number])[address] Hemoglobin (Bld) [Mass/Vol] 10.7 g/dL Low 13.0-18.0 [facility] Comment on above: Performed By: #### L AB294 ####Calciminer: GATO [id number])[facility] [place] [address] MCH (RBC) [Entitic mass] 29.4 pg Normal 26.0-34.[address] [facility] Comment on above: Performed By: #### L AB294 ####Calciminer: GATO GRAY ([id number])[facility])[address] [place] [address] MCHC 32.6 % Normal 30.5-36.[address] [facility] Comment on above: Performed By: #### L AB294 ####Calciminer: GATO GRAY ([id number])[facility])[address] [place] [address] MCV (RBC) [Entitic vol] 90.1 fL Normal 77.0-99.0 [facility] Comment on above: Performed By: #### L [id number] ####Calciminer: GATO GRAY ([id number])[facility])[address] [place] [address] Platelet mean volume (Bld) [Entitic vol] 9.5 fL Normal 9.0-12.[address] [facility] Comment on above: Performed By: #### L [id number] ####Calciminer: GATO GRAY ([id number])[facility])[address] [place] [address] Platelets (Bld) [#/Vol] 156 10*3/uL Normal 140-[address] [facility] Comment on above: Performed By: #### L [id number] ####Calciminer: GATO GRAY ([id number])[facility])[address] [place] [address] RBC (Bld) [#/Vol] 3.64 10*6/uL Low 4.40-5.[address] [facility] Comment on above: Performed By: #### L [id number] ####Calciminer: GATO GRAY ([id number])[facility])[address] [place] [address] [place] WBC (Bld) [#/Vol] 9.0 10*3/uL Normal 3.6-10.[address] [facility] Comment on above: Performed By: #### L [id number] ####Calciminer: GATO GRAY ([id number])[facility] ([facility])[address] [place] [address] CBC panel Auto (Bld)on 07-08 Erythrocyte distribution width (RBC) [Ratio] 14.4 % 11.5 - 15.0 % [facility] Hematocrit (Bld) [Volume fraction] 32.8 % Low 40.0 - 52.0 % [facility] Hemoglobin (Bld) [Mass/Vol] 10.7 g/dL Low 13.0 - 18.0 g/dL [facility] Interpretation and review of laboratory results Abnormal [facility] MCH (RBC) [Entitic mass] 29.4 pg 26.0 - 34.0 pg [facility] MCHC (RBC) [Mass/Vol] 32.6 % 30.5 - 36.0 % [facility] MCV (RBC) [Entitic vol] 90.1 fL 77.0 - 99.0 fL [facility] Platelet mean volume (Bld) [Entitic vol] 9.5 fL 9.0 - 12.7 fL [facility] Platelets (Bld) [#/Vol] 156 10*3/uL 140 - 440 10*3/uL [facility] RBC (Bld) [#/Vol] 3.64 10*6/uL Low 4.40 - 5.90 10*6/uL [facility] WBC (Bld) [#/Vol] 9 10*3/uL 3.6 - 10.7 10*3/uL [facility] COMPLETE URINALYSISon 2023 BACTERIA (#/HPF) IN URINE Negative Normal Negative [facility] Comment on above: Performed By: #### L [id number] ####Calciminer: GATO GRAY ([id number])[facility] [place] [address] BILIRUBIN, TOTAL PRESENCE IN URINE Negative Normal Negative [facility] Comment on above: Performed By: #### L [id number] ####Calciminer: GATO GRAY ([id number])[facility] ([facility])[address] [place] [address] Clarity (U) Clear Normal Clear [facility] Comment on above: Performed By: #### L [id number] ####Calciminer: GATO GRAY ([id number])[facility])[address] [place] [address] Color (U) Light Yellow Normal Lt. Yellow [facility] Comment on above: Performed By: #### L [id number] ####Calciminer: GATO GRAY ([id number])[facility])[address] [place] [address] GLUCOSE (MG/DL) IN URINE >1,000 Abnormal Normal (<70) [facility] Comment on above: Performed By: #### L AB347 ####Calciminer: GATO GRAY ([id number])[facility])[address] [place] [address] HEMOGLOBIN PRESENCE IN URINE 0.03 mg/dL Abnormal Negative [facility] Comment on above: Performed By: #### L [id number] ####Calciminer: GATO GRAY ([id number])[facility])[address] [place] [address] Ketones Ql (U) Trace Abnormal Negative [facility] Comment on above: Performed By: #### L AB347 ####Calciminer: GATO GRAY ([id number])[facility])[address] [place] [address] LEUKOCYTE ESTERASE PRESENCE IN URINE BY TEST STRIP Negative Normal Negative [facility] Comment on above: Performed By: #### L [id number] ####Calciminer: GATO GRAY ([id number])[facility])[address] [place] [address] [place] MUCUS (#/LPF) IN URINE SEDIMENT Few Normal Negative [facility] Comment on above: Performed By: #### L AB347 ####Calciminer: GATO GRAY ([id number])[facility])[address] [place] [address] NITRITE PRESENCE IN URINE Negative Normal Negative [facility] Comment on above: Performed By: #### L AB347 ####Calciminer: GATO GRAY ([id number])[facility])[address] [place] [address] pH (U) 5.5 [pH] Normal 5.0-8.[address] [facility] Comment on above: Performed By: #### L [id number] ####Calciminer: GATO GRAY ([id number])[facility])[address] [place] [address] Protein (U) [Mass/Vol] 30 mg/dL Abnormal Negative [facility] Comment on above: Performed By: #### L [id number] ####Calciminer: GATO GRAY ([id number])[facility])[address] [place] [address] RBC (#/HPF) IN URINE SEDIMENT 0-2 Normal 0-[address] [facility] Comment on above: Performed By: #### L AB347 ####Calciminer: GATO GRAY ([id number])[facility])[address] [place] [address] Specific gravity (U) [Rel density] 1.017 Normal 1.005-1.[address] [facility] Comment on above: Performed By: #### L AB347 ####Calciminer: GATO GRAY ([id number])[facility])[address] [place] [address] SQUAMOUS EPITHELIAL CELLS (#/HPF) IN URINE SEDIMENT 0-2 Normal 3-[address] [facility] Comment on above: Performed By: #### L AB347 ####Calciminer: GATO GRAY ([id number])[facility])[address] [place] [address] UROBILINOGEN (MG/DL) IN URINE Normal Normal Normal (0-1) [facility] Comment on above: Performed By: #### L [id number] ####Calciminer: GATO GRAY ([id number])[facility])[address] [place] [address] WBC (LEUKOCYTE) (#/HPF) IN URINE SEDIMENT 0-2 Normal 0-5 [facility] Comment on above: Performed By: #### L [id number] ####[facility]: GATO GRAY ([id number])[facility] [place] [address] CT HEAD WO IV CONTRASTon CT HEAD [...] due to patient coughing during scan Normal [facility] CT Head WO contraston 2023 Patient Name: [...] MD Electronically Signed Date/Time: 07/08/2024 4:46 AM [facility] Adolfo Turner MD - 07/08/2024 Patient Name: AV[facility] 1950 [id number] Exam Date/Time: 07/08/2024 04:38 Procedure: CT HEAD [...] MD Electronically Signed Date/Time: 07/08/2024 4:46 AM [facility] Radiology Study observation (narrative) [facility] CT Head WO contrastOrdered B y: Adolfo Turner on 07-08-2024 [facility] Work Phone: ECG 12-LEADon 07-08-2024 ECG 12-LEAD IMPRESSION: SINUS RHYTHM Borderline IVCD Electronically Signed On 07-08-2024 14:06:40 EST by Jada Dalal [facility] ECG 12-LEAD IMPRESSION: Sinus tachycardia Borderline IVCD with LAD Low voltage, precordial leads Electronically Signed On 07-08-2024 14:05:54 EST by Jada Dalal [facility] Laboratory - Chemistry and C hemistry - challengeon 07-08-2024 Glucose [Mass/Vol] 217 mg/dL High 70 - 100 mg/dL [facility] Glucose [Mass/Vol] 154 mg/dL High 70 - 100 mg/dL [facility] Glucose [Mass/Vol] 167 mg/dL High 70 - 100 mg/dL [facility] Procalcitonin [Mass/Vol] 18.08 ng/mL High 0.00 - 0.09 ng/mL [facility] Glucose [Mass/Vol] 207 mg/dL High 70 - 100 mg/dL [facility] Troponin I.cardiac [Mass/Vol] 0.249 ng/mL Critically high NINF - 0.034 ng/mL [facility] Troponin I.cardiac [Mass/Vol] 0.663 ng/mL [facility] ng/mL [facility] MISCELLANEOUS SENDOUT TESTon 07-08-2024 RESULT See Comment Normal [facility] Comment on above: Order Comment: Bacte ton [...] Interpret results with caution. Testing performed by: [facility] [address] [place] [address] Performed By: #### L [id number] ####[facility] ([facility])[address] [place] [phone] [facility] No Panel Informationon 07-08 Interpretation and review of laboratory results Abnormal [facility] Performed by: [email or web address], [address] [place] [id number] CLIA ID: [id number] [facility] Interpretation and review of laboratory results Abnormal [facility] Performed by: [email or web address], [address] [place] [id number] CLIA ID: [id number] [facility] P [place] 0 degrees [facility] Interval 0 ms [facility] QRS [place] 17 degrees [facility] QRSD Interval 114 ms [facility] QT Interval 377 ms [facility] QTC Interval 455 ms [facility] T Wave [place] 42 degrees [facility] SINUS RHYTHM Borderline IVCD Electronically Signed On 07-08-2024 14:06:40 EST by Jada Mcdaniels MD - 07/08/2024 IMPRESSION: SINUS RHYTHM Borderline IVCD Electronically Signed On 07-08-2024 14:06:40 EST by Jada Dalal [facility] Sinus tachycardia Borderline IVCD with LAD Low voltage, precordial leads Electronically Signed On 07-08-2024 14:05:54 EST by Jada Mcdaniels MD - 07/08/2024 IMPRESSION: Sinus tachycardia Borderline IVCD with LAD Low voltage, precordial leads Electronically Signed On 07-08-2024 14:05:54 EST by Jada Dalal [facility] Interpretation and review of laboratory results Abnormal [facility] Performed by: [facility], [address] [place] [address] CLIA ID: [id number] [facility] No evidence of deep [...] filling and normal phasic and spontaneous flow. [employer] Details A león scale, color Doppler imaging [...] Interpretation and review of laboratory results Abnormal [facility] Performed by: [employer] [facility], [address] [place] [address] CLIA ID: [id number] [facility] No Panel InformationOrdered By: Jada Dalal on 07-08-2024 P [place] 47 degrees [facility] Phone: UT Interval 164 ms [facility] Phone: QRS [place] -38 degrees [facility] Phone: QRSD Interval 114 ms [facility] Phone: QT Interval 319 ms [facility] Phone: QTC Interval 442 ms [facility] Phone: T Wave [place] 29 degrees [facility] Phone: [facility] Phone: PROCALCITONIN TESTon 024 PROCALCITONIN 18.08 ng/mL High 0.00-0.09 [facility] Comment on above: Result Comment: SONYA Gambino COMMENTS: PCT <0.50 = Low risk of severe sepsis and/or septic shock. PCT >2.00 = High risk of severe sepsis and/or septic shock. Performed By: #### L [id number] ####[facility]: GATO GRAY ([id number])[facility] [place] [address] Procalcitonin [Mass/Vol]on 09-07-2023 Interpretation and review of laboratory results Abnormal [facility] PCT <0.50 = Low risk of severe sepsis and/or septic shock. PCT >2.00 = High risk of severe sepsis and/or septic shock. [facility] Progress Noteon 07-08-2024 Progress Note ------ -- [...] per randolph positive blood culture Imaging from [place] not sent - call today + Emesis [...] MD Division of Trauma Department of Surgery [facility] (more content not included)... Normal [facility] RESPIRATORY PATHOGENS PANEL BY PCRon 07-08-2024 RESPIRATORY [...] Detected ORDER COMMENTS: Methodology: Multiplex PCR Normal [facility] Comment on above: Performed By: #### L [id number] ####[employer]: GATO GRAY ([id number])[address] Respiratory pathogens DNA an d RNA panel NILDA+non-probe (Nph)on 07-08-2024 Adenovirus Not detected Not Detected [facility] B. pertussis DNA NILDA+probe Ql (Unsp spec) Not detected Not Detected [facility] Bordetella parapertussis Not detected Not Detected [facility] Chlamydia pneumoniae Not detected Not Detected [facility] Coronavirus 229E Not detected Not Detected [facility] Coronavirus HKU1 Not detected Not Detected [facility] Coronavirus NL63 Not detected Not Detected [facility] Coronavirus OC43 Not detected Not Detected [facility] FLUAV RNA NILDA+non-probe Ql (Nph) Not detected Not Detected [facility] FLUBV RNA NILDA+non-probe Ql (Nph) Not detected Not Detected [facility] Human Metapneumovirus Not detected Not Detected [facility] Human Rhinovirus/Enterovirus Not detected Not Detected [facility] Interpretation and review of laboratory results Normal [facility] Mycoplasma pneumoniae Not detected Not Detected [facility] Parainfluenza 1 Not detected Not Detected [facility] Parainfluenza 2 Not detected Not Detected [facility] Parainfluenza 3 Not detected Not Detected [facility] Parainfluenza 4 Not detected Not Detected [facility] Respiratory Syncytial Virus Not detected Not Detected [facility] SARS-CoV-2 (COVID-19) RNA NILDA+non-probe Ql (Nph) Not detected Not Detected [facility] Methodology: Multiplex PCR [facility] TROPONIN Ion 07-08-2024 Troponin I.cardiac [Mass/Vol] 0.663 ng/mL Critically high <0.034 [facility] Comment on above: Result Comment: SONYA Gambino COMMENTS: Patients with high levels of Biotin oral intake (ie >5 mg/day) may have falsely decreased Troponin levels. Performed By: #### L [id number] ####[facility]: GATO GRAY ([id number])[facility] [place] [address] [place] TROPONIN, WITH SERIAL REFLEX on 07-08-2024 Troponin I.cardiac [Mass/Vol] 0.249 ng/mL Critically high <0.034 [facility] Comment on above: Result Comment: SONYA Gambino COMMENTS: Patients with high levels of Biotin oral intake (ie >5 mg/day) may have falsely decreased Troponin levels. Performed By: #### L AB15, [id number] ####[employer]: GATO GRAY ([id number])[facility] [place] [address] [place] Troponin I.cardiac [Mass/Vol ]on 07-08-2024 Interpretation and review of laboratory results Abnormal [facility] Patients with high l evels of Biotin oral intake (ie >5 mg/day) may have falsely decreased Troponin levels. [facility] Interpretation and review of laboratory results Abnormal [facility] Patients with high l evels of Biotin oral intake (ie >5 mg/day) may have falsely decreased Troponin levels. [facility] Urinalysis complete panel (U )Ordered By: Tori Guillen on 07-08-2024 Bacteria LM.HPF (Urine sed) [#/Area] Negative Negative /HPF [facility] Bilirubin Ql (U) Negative Negative mg/dL [facility] Clarity (U) Clear Clear [facility] Color (U) Light Yellow Lt. Yellow [facility] Epithelial cells.squamous LM.HPF (Urine sed) [#/Area] 0-2 [facility] Glucose Ql (U) >1,000 Abnormal Normal (<70) mg/dL [facility] Hemoglobin Ql (U) 0.03 mg/dL Abnormal Negative [facility] Interpretation and review of laboratory results Abnormal [facility] Ketones (U) [Mass/Vol] Trace Abnormal Negat scott mg/dL [facility] Leukocyte esterase Test strip Ql (U) Negative Negative Thao/uL [facility] Mucus LM.HPF (Urine sed) [#/Area] Few Negative /LPF [facility] Nitrite Ql (U) Negative Negative [facility] pH (U) 5.5 [pH] 5.0 - 8.0 pH [facility] Protein (U) [Mass/Vol] 30 mg/dL Abnormal Negative [facility] RBC LM.HPF (Urine sed) [#/Area] 0-2 [facility] Specific gravity (U) [Rel density] 1.017 1.005 - 1.030 [facility] Urobilinogen (U) [Mass/Vol] Normal Normal (0-1) mg/dL [facility] WBC LM.HPF (Urine sed) [#/Area] 0-2 [facility] Vital signson 07-08-2024 Heart rate 87 /min bpm [facility] Vital signsOrdered By: Jada Dalal on 07-08-2024 Heart rate 116 /min bpm [facility] Work Phone: XR CHEST 1 VIEWon 07-08-2024 [...] MD Electronically Signed Date/Time: 07/08/2024 8:[address] [facility] XR Chest Single viewon 07-08 No significant change from the prior exam. Report Dictated on Electronically Signed By: Constantine Vargas MD Electronically Signed Date/Time: 07/08/2024 8:02 AM [facility] Patient Name: AVERY VASQUEZ : 1950 Exam [...] fracture. 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 [facility] Constantine Vargas MD - 07/08/2024 Patient Name: [...] Electronically Signed Date/Time: 07/08/2024 8:02 AM EST [facility] Radiology Study observation (narrative) [facility] XR Chest Single viewOrdered By: Constantine Vargas on 07-08-2024 [facility] Work Phone: aPTT Coag (Bld) [Time]on aPTT Coag (PPP) [Time] 52.1 s High 20.0 - 30.5 s [facility] Interpretation and review of laboratory results Abnormal [facility] NOTE: The therapeuti c time for Heparin anticoagulation, based on Xa activity inhibition, is an APTT of 46-80 seconds. [facility] aPTT Coag (PPP) [Time] 60.8 s High 20.0 - 30.5 s [facility] Interpretation and review of laboratory results Abnormal [facility] NOTE: The therapeuti c time for Heparin anticoagulation, based on Xa activity inhibition, is an APTT of 46-80 seconds. [facility] 30on 07-07-2024 30 The patient is Moder [...] barriers include follow recommended treatment plans. Normal [facility] APTTon 07-07-2024 aPTT Coag (Bld) [Time] 58.4 s High 20.0-30.5 [facility] Comment on above: Result Comment: SONYA Gambino COMMENTS: NOTE: The therapeutic time for Heparin anticoagulation, based on Xa activity inhibition, is an APTT of 46-80 seconds. Performed By: #### L [id number] ####[facility]: GATO GRAY ([id number])[facility] ([address] aPTT Coag (Bld) [Time] 57.5 s High 20.0-30.5 [facility] Comment on above: Result Comment: SONYA Gambino COMMENTS: NOTE: The therapeutic time for Heparin anticoagulation, based on Xa activity inhibition, is an APTT of 46-80 seconds. Performed By: #### L [id number] ####Cal[employer]: GATO GRAY ([id number])[address] aPTT Coag (Bld) [Time] 44.5 s High 20.0-30.5 [facility] Comment on above: Result Comment: SONYA Gambino COMMENTS: NOTE: The therapeutic time for Heparin anticoagulation, based on Xa activity inhibition, is an APTT of 46-80 seconds. Performed By: #### L [id number] ####Calciminer: GATO GRAY ([id number])[address] aPTT Coag (Bld) [Time] 33.3 s High 20.0-30.5 [facility] Comment on above: Result Comment: SONYA Gambino COMMENTS: NOTE: The therapeutic time for Heparin anticoagulation, based on Xa activity inhibition, is an APTT of 46-80 seconds. Performed By: #### L [id number] ####Cal[employer]: GATO GRAY ([id number])[address] BLOOD GAS ARTERIALon 024 Base excess Calc (Bld) [Moles/Vol] -4.6000 mmol/L Low -3.0-3.0 [facility] Comment on above: Performed By: #### L AB76 ####[employer]: GATO [id number])[address] CO2 [Moles/Vol] 18.2 mmol/L Low 23.0-27.0 [facility] Comment on above: Performed By: #### L AB76 ####Calciminer: GATO [id number])[address] [place] [address] [place] HCO3 (Bld) [Moles/Vol] 17.4 mmol/L Low 21.0-25.0 [facility] Comment on above: Performed By: #### L AB76 ####Calciminer: GATO GRAY ([id number])[facility])[address] [place] [address] Hemoglobin (Bld) [Mass/Vol] 12.7 g/dL Normal Screen only [facility] Comment on above: Performed By: #### L AB76 ####Calciminer: GATO GRAY ([id number])[facility])[address] [place] [address] OXYGEN SATURATION (%) IN ARTERIAL BLOOD 95.7 % Normal 95.0-100.[address] [facility] Comment on above: Performed By: #### L AB76 ####Calciminer: GATO GRAY ([id number])[facility])[address] [place] [address] PCO2 ARTERIAL 24.5 mm Hg Low >35.0-<45. [address] [facility] Comment on above: Performed By: #### L AB76 ####Calciminer: GATO GRAY ([id number])[facility])[address] [place] [address] PH ARTERIAL 7.470 High 7.350-7.[address] [facility] Comment on above: Performed By: #### L AB76 ####Calciminer: GATO GRAY ([id number])[facility])[address] [place] [address] PO2 ARTERIAL 79.3 mm Hg Low 80.0-100.[address] [facility] Comment on above: Performed By: #### L AB76 ####Calciminer: GATO GRAY ([id number])[facility])[address] [place] [address] SOURCE OF OXYGEN Nasal cannula Normal [facility] Comment on above: Result Comment: 7L Performed By: #### L AB76 ####Calciminer: GATO [id number])[facility])[address] [place] [address] CBC (HEMOGRAM)on 07-07-2024 Erythrocyte distribution width (RBC) [Ratio] 14.2 % Normal 11.5-15.0 [facility] Comment on above: Performed By: #### L [id number] ####Calciminer: GATO GRAY ([id number])[facility])[address] [place] [address] Hematocrit (Bld) [Volume fraction] 30.8 % Low 40.0-52.0 [facility] Comment on above: Performed By: #### L [id number] ####Cal[employer]: GATO GRAY ([id number])[address] Hemoglobin (Bld) [Mass/Vol] 10.4 g/dL Low 13.0-18.0 [facility] Comment on above: Performed By: #### L [id number] ####Calciminer: GATO GRAY ([id number])[facility])[address] [place] [address] MCH (RBC) [Entitic mass] 29.7 pg Normal 26.0-34.[address] [facility] Comment on above: Performed By: #### L [id number] ####Calciminer: GATO GRAY ([id number])[facility])[address] [place] [address] MCHC 33.8 % Normal 30.5-36.[address] [facility] Comment on above: Performed By: #### L [id number] ####Calciminer: GATO GRAY ([id number])[facility])[address] [place] [address] MCV (RBC) [Entitic vol] 88.0 fL Normal 77.0-99.0 [facility] Comment on above: Performed By: #### L [id number] ####Calciminer: GATO GRAY ([id number])[facility])[address] [place] [address] Platelet mean volume (Bld) [Entitic vol] 9.3 fL Normal 9.0-12.7 [facility] Comment on above: Performed By: #### L [id number] ####Calciminer: GATO GRAY ([id number])[facility])[address] [place] [address] Platelets (Bld) [#/Vol] 136 10*3/uL Low 140-440 [facility] Comment on above: Performed By: #### L [id number] ####Calciminer: GATO GRAY ([id number])[facility])[address] [place] [address] RBC (Bld) [#/Vol] 3.50 10*6/uL Low 4.40-5.90 [facility] Comment on above: Performed By: #### L [id number] ####Calciminer: GATO GRAY ([id number])[facility])[address] [place] [address] WBC (Bld) [#/Vol] 10.0 10*3/uL Normal 3.6-10.7 [facility] Comment on above: Performed By: #### L [id number] ####Calciminer: GATO GRAY ([id number])[facility])[address] [place] [address] CBC panel Auto (Bld)on 07-07 Erythrocyte distribution width (RBC) [Ratio] 14.2 % 11.5 - 15.0 % [facility] Hematocrit (Bld) [Volume fraction] 30.8 % Low 40.0 - 52.0 % [facility] Hemoglobin (Bld) [Mass/Vol] 10.4 g/dL Low 13.0 - 18.0 g/dL [facility] Interpretation and review of laboratory results Abnormal [facility] MCH (RBC) [Entitic mass] 29.7 pg 26.0 - 34.0 pg [facility] MCHC (RBC) [Mass/Vol] 33.8 % 30.5 - 36.0 % [facility] MCV (RBC) [Entitic vol] 88 fL 77.0 - 99.0 fL [facility] Platelet mean volume (Bld) [Entitic vol] 9.3 fL 9.0 - 12.7 fL [facility] Platelets (Bld) [#/Vol] 136 10*3/uL Low 140 - 440 10*3/uL [facility] RBC (Bld) [#/Vol] 3.5 10*6/uL Low 4.40 - 5.90 10*6/uL [facility] WBC (Bld) [#/Vol] 10 10*3/uL 3.6 - 10.7 10*3/uL [facility] COMPREHENSIVE METABOLIC PANE Kev 07-07-2024 Albumin [Mass/Vol] 3.2 g/dL Low 3.5-5.[address] [facility] Comment on above: Performed By: #### L [id number], LAB17 ####Calciminer: GATO GRAY ([id number])[facility])[address] [place] [address] ALP [Catalytic activity/Vol] 75 U/L Normal 38-[address] [facility] Comment on above: Performed By: #### L [id number], LAB17 ####Calciminer: GATO GRAY ([id number])[facility])[address] [place] [address] ALT [Catalytic activity/Vol] 45 U/L Normal 0-[address] [facility] Comment on above: Performed By: #### L [id number], LAB17 ####Calciminer: GATO GRAY ([id number])[facility])[address] [place] [address] Anion gap [Moles/Vol] 10 mmol/L Normal 3-13 [facility] Comment on above: Performed By: #### L [id number], LAB17 ####Calciminer: GATO GRAY ([id number])[facility])[address] [place] [address] AST [Catalytic activity/Vol] 35 U/L Normal 15-[address] [facility] Comment on above: Performed By: #### L [id number], LAB17 ####Calciminer: GATO GRAY ([id number])[facility])[address] [place] [address] Bilirubin [Mass/Vol] 0.6 mg/dL Normal 0.2-1.3 [facility] Comment on above: Performed By: #### L [id number], LAB17 ####Calciminer: GATO GRAY ([id number])[facility])[address] [place] [address] Calcium [Mass/Vol] 8.1 mg/dL Low 8.4-10.4 [facility] Comment on above: Performed By: #### L [id number], [id number] ####Calciminer: GATO GRAY ([id number])[facility])[address] [place] [address] Chloride [Moles/Vol] 106 mmol/L Normal 98-107 [facility] Comment on above: Performed By: #### L [id number], LAB17 ####Calciminer: GATO GRAY ([id number])[facility])[address] [place] [address] CO2 [Moles/Vol] 15 mmol/L Low 22-30 [facility] Comment on above: Performed By: #### L [id number], LAB17 ####Calciminer: GATO GRAY ([id number])[facility])[address] [place] [address] Creatinine [Mass/Vol] 0.78 mg/dL Normal 0.66-1.25 [facility] Comment on above: Performed By: #### L [id number], LAB17 ####Calciminer: GAOT GRAY ([id number])[facility])[address] [place] [address] GLOMERULAR FILTRATION RATE ML/MIN/1.73 SQ M.PREDICTED >90.0 Normal >60.0 [facility] Comment on above: Result Comment: Calc ulation based on the Chronic Kidney Disease Epidemiology Collaboration (CKD-EPI) equation refit without adjustment for race Performed By: #### L [id number], [id number] ####Calciminer: GATO GRAY ([id number])[facility])[address] [place] [address] Glucose [Mass/Vol] 162 mg/dL High 70-100 [facility] Comment on above: Performed By: #### L [id number], LAB17 ####Calciminer: GATO GRAY ([id number])[facility])[address] [place] [address] Potassium [Moles/Vol] 3.4 mmol/L Low 3.5-5.1 [facility] Comment on above: Performed By: #### L [id number], LAB17 ####Calciminer: GATO GRAY ([id number])[facility])[address] [place] [address] Protein [Mass/Vol] 6.1 g/dL Low 6.3-8.[address] [facility] Comment on above: Performed By: #### L [id number], LAB17 ####Calciminer: GATO GRAY ([id number])[facility])[address] [place] [address] Sodium [Moles/Vol] 131 mmol/L Low 135-[address] [facility] Comment on above: Performed By: #### L [id number], LAB17 ####Calciminer: GATO GRAY ([id number])[facility])[address] [place] [address] Urea nitrogen [Mass/Vol] 19 mg/dL Normal 9-[address] [facility] Comment on above: Performed By: #### L [id number], LAB17 ####Calciminer: GATO GRAY ([id number])[facility])[address] [place] [address] CT HEAD WO IV CONTRASTon CT HEAD [...] Electronically Signed Date/Time: 07/07/2024 7:31 AM EDT [facility] CT Head WO contraston 2023 1. Tiny right parietal subdural hematoma. 2. Previously noted small volume subarachnoid hemorrhage and tiny intraparenchymal hematoma have resolved. 3. 8 mm left convexity subdural hygroma previously measured 5 mm. Report Dictated on Electronically Signed By: Edenilson Barnett MD Electronically Signed Date/Time: 07/07/2024 7:31 AM EDT [facility] Patient Name: AVERY VASQUEZ : 1950 Exam Date/Time: 07/07/2024 06:03 Procedure: [...] included paranasal sinuses and orbits are normal. [facility] Edenilson Barnett M D - 07/07/2024 Patient Name: AVERY VASQUEZ : 1950 Exam Date/Time: 07/07/2024 06:03 Procedure: [...] Electronically Signed Date/Time: 07/07/2024 7:31 AM EDT [facility] Radiology Study observation (narrative) [facility] CT Head WO contrastOrdered B y: Edenilson Barnett on 07-07-2024 [employer] Work Phone: Comprehensive metabolic 1998 panelon 07-07-2024 Albumin [Mass/Vol] 3.2 g/dL Low 3.5 - 5.0 g/dL [facility] ALP [Catalytic activity/Vol] 75 U/L 38 - 126 U/L [facility] ALT [Catalytic activity/Vol] 45 U/L 0 - 49 U/L [facility] Anion gap [Moles/Vol] 10 mmol/L 3 - 13 mmol/L [facility] AST [Catalytic activity/Vol] 35 U/L 15 - 46 U/L [facility] Bilirubin [Mass/Vol] 0.6 mg/dL 0.2 - 1 .3 mg/dL [facility] Calcium [Mass/Vol] 8.1 mg/dL Low 8.4 - 10. 4 mg/dL [facility] Chloride [Moles/Vol] 106 mmol/L 98 - 10 7 mmol/L [facility] CO2 [Moles/Vol] 15 mmol/L Low 22 - 30 mmol/L [facility] Creatinine [Mass/Vol] 0.78 mg/dL 0.66 - 1.25 mg/dL [facility] GFR/1.73 sq M.predicted (S/P/Bld) [Vol rate/Area] - PINF [facility] Comment on above: Calculation based on the Chronic Kidney Disease Epidemiology Collaboration (CKD-EPI) equation refit without adjustment for race Glucose [Mass/Vol] 162 mg/dL High 70 - 100 mg/dL [facility] Interpretation and review of laboratory results Abnormal [facility] Potassium [Moles/Vol] 3.4 mmol/L Low 3.5 - 5.1 mmol/L [facility] Protein [Mass/Vol] 6.1 g/dL Low 6.3 - 8.2 g/dL [facility] Sodium [Moles/Vol] 131 mmol/L Low 135 - 145 mmol/L [facility] Urea nitrogen [Mass/Vol] 19 mg/dL 9 - 20 mg/dL [facility] Consulton 07-07-2024 Consult Ortho Consult Patient: Avery Vasquez Date of : 1950 Acct: [id number] PCP: Aidan Argueta MD Date of Admission: [...] ondansetron (Zofran) injec (more content not included)... [facility] Consult PULMONOLOGY CONSULT NOTE 07/07/2024 10:13 AM Reason for consult: Pulmonary emboli Inpatient consult to Pulmonology Consult performed by: Tiffany Zaragoza DO Consult ordered by: Hussein Paredes, TAYLOR - SUPERVISOR BILLPOSTING Subjective: Admit Date: 07/06/2024 PCP: Aidan Argueta [...] Hypoxemic respiratory failure Chest CTA 07/06/2024 from [facility], report in chart, positive for segmental PE [...] O2 Dis (more content not included)... Normal [facility] Consult Reason For Consult PE, history of [...] PE. Ok for anticoagulation per ICU team. [facility] Consult NEUROCRITICAL CARE C ONSULT NOTE Patient Name: Avery Vasquez Patient : 1950 Acct: [id number] Date of Admission: 07/06/2024 Room[facility]: [facility] PCP: Aidan Argueta MD Chief Complaint: [...] 0-10 mL, IntraVENous, Once PRN, Hussein Paredes, SUPERVISOR FABRICATION DEPARTMENT - SUPERVISOR BILLPOSTING polyethylene glycol (PEG) 3350 (Miralax) packet 17 [...] and Tramadol (more content not included)... Normal [facility] LACTIC ACID WITH REFLEXon Lactate [Moles/Vol] 1.2 mmol/L Normal 0.7-2.0 [facility] Comment on above: Performed By: #### L [id number] ####Calciminer: GATO GRAY ([id number])[facility])[address] [place] [address] Lactate [Moles/Vol] 2.5 mmol/L High 0.7-2.0 [facility] Comment on above: Performed By: #### L [id number] ####Calciminer: GATO GRAY ([id number])[facility])[address] [place] [address] Laboratory - Chemistry and C hemistry - challengeOrdered By: Astrid Link on 07-07-2024 Troponin I.cardiac [Mass/Vol] 0.568 ng/mL Critically high NINF - 0.034 ng/mL [facility] Laboratory - Chemistry and C hemistry - challengeon 07-07-2024 Lactate [Moles/Vol] 1.2 mmol/L 0.7 - 2. 0 mmol/L [facility] Glucose [Mass/Vol] 244 mg/dL High 70 - 100 mg/dL [facility] Troponin I.cardiac [Mass/Vol] 0.12 ng/mL High NINF - 0.034 ng/mL [facility] Procalcitonin [Mass/Vol] 15.61 ng/mL High 0.00 - 0.09 ng/mL [facility] Glucose [Mass/Vol] 154 mg/dL High 70 - 100 mg/dL [facility] Glucose [Mass/Vol] 144 mg/dL High 70 - 100 mg/dL [facility] Glucose [Mass/Vol] 164 mg/dL High 70 - 100 mg/dL [facility] Troponin I.cardiac [Mass/Vol] 0.066 ng/mL High NINF - 0.034 ng/mL [facility] Glucose [Mass/Vol] 162 mg/dL High 70 - 100 mg/dL [facility] Troponin I.cardiac [Mass/Vol] 0.078 ng/mL High NINF - 0.034 ng/mL [facility] Glucose [Mass/Vol] 152 mg/dL High 70 - 100 mg/dL [facility] Laboratory - Chemistry and C hemistry - challengeOrdered By: Dianelys Redding on 07-07-2024 Lactate [Moles/Vol] 2.5 mmol/L High 0.7 - 2. 0 mmol/L [facility] Laboratory - Chemistry and C hemistry - challengeOrdered By: Diana Lind on 07-07-2024 Base excess Calc (Bld) [Moles/Vol] -4.6000 mmol/L Low -3.0 - 3.0 mmol/L [facility] CO2 (Bld) [Partial pressure] 24.5 mm[Hg] Low - PINF [facility] CO2 [Moles/Vol] 18.2 mmol/L Low 23.0 - 27.0 mmol/L [facility] HCO3 (Bld) [Moles/Vol] 17.4 mmol/L Low 21.0 - 25.0 mmol/L [facility] Oxygen (Bld) [Partial pressure] 79.3 mm[Hg] Low [facility] pH (Bld) 7.47 [pH] High 7.350 - 7.450 [facility] Laboratory - Hematology and Cell countsOrdered By: Diana Lind on 07-07-2024 Hemoglobin (Bld) [Mass/Vol] 12.7 g/dL Screen only [facility] No Panel Informationon 07-07 Interpretation and review of laboratory results Normal [facility] Interpretation and review of laboratory results Abnormal [facility] Performed by: [facility], [address] [place] [id number] CLIA ID: [id number] [facility] Interpretation and review of laboratory results Abnormal [facility] Performed by: [facility], [address] [place] [address] CLIA ID: [id number] [facility] Interpretation and review of laboratory results Abnormal [facility] Performed by: [facility], [address] [place] [address] CLIA ID: [id number] [facility] Interpretation and review of laboratory results Abnormal [facility] Performed by: [facility], [address] [place] [address] CLIA ID: [id number] [facility] Interpretation and review of laboratory results Abnormal [facility] Performed by: [facility], [address] [place] [address] CLIA ID: [id number] [facility] Interpretation and review of laboratory results Abnormal [facility] Performed by: [facility], [address] [place] [address] CLIA ID: [id number] [facility] No Panel InformationOrdered By: Dianelys Redding on 07-07-2024 Interpretation and review of laboratory results Abnormal [facility] No Panel InformationOrdered By: Diana Lind on 07-07-2024 Interpretation and review of laboratory results Abnormal [facility] Source Of Oxygen Nasal cannula [facility] Comment on above: 7L [facility] PROCALCITONIN TESTon 024 PROCALCITONIN 15.61 ng/mL High 0.00-0.09 [facility] Comment on above: Result Comment: ORDE R COMMENTS: PCT <0.50 = Low risk of severe sepsis and/or septic shock. PCT >2.00 = High risk of severe sepsis and/or septic shock. Performed By: #### L [id number] ####Calciminer: GATO GRAY ([id number])[facility])[address] [place] [address] Procalcitonin [Mass/Vol]on 09-06-2023 Interpretation and review of laboratory results Abnormal [facility] PCT <0.50 = Low risk of severe sepsis and/or septic shock. PCT >2.00 = High risk of severe sepsis and/or septic shock. [facility] Progress Noteon 07-07-2024 Progress Note Low Risk [...] Discharge Planning: None Moira Kumari RD Contact: *[phone] [facility] Progress Note ------ -- Attestation signed by [...] MD Division of Trauma Department of Surgery [facility] ~~~~~~~~~~~~~~~~~~~~~~~~~~ ~~~~~~~~~~~~~~~~~~~~~~~~~~ ~~~~~~~~~~~~~~~~~~~ This note may have been dictated using [employer] Medical Practice Edition 2.6 and/or [employer] Voice Recognition Feature. The document was proofread; however, unrecognized voice recognition gear changer errors may be present. -- Daily Trauma Progress Note Resident (more content not included)... Normal [facility] TROPONIN Ion 07-07-2024 Troponin I.cardiac [Mass/Vol] 0.568 ng/mL Critically high <0.034 [facility] Comment on above: Result Comment: SONYA Gambino COMMENTS: Patients with high levels of Biotin oral intake (ie >5 mg/day) may have falsely decreased Troponin levels. Performed By: #### L [id number] ####Calciminer: GATO GRAY ([id number])[facility] ([address] Troponin I.cardiac [Mass/Vol] 0.066 ng/mL High <0.034 [facility] Comment on above: Result Comment: SONYA Gambino COMMENTS: Slightly Hemolyzed. Interpret Troponin I with caution. Patients with high levels of Biotin oral intake (ie >5 mg/day) may have falsely decreased Troponin levels. Performed By: #### L [id number] ####Calciminer: GATO GRAY ([id number])[facility])[address] [place] [address] Troponin I.cardiac [Mass/Vol] 0.078 ng/mL High <0.034 [facility] Comment on above: Result Comment: SONYA Gambino COMMENTS: Patients with high levels of Biotin oral intake (ie >5 mg/day) may have falsely decreased Troponin levels. Performed By: #### L [id number] #### Calciminer: GAOT GRAY ([id number]) [facility]) [address] [place] [address] TROPONIN, WITH SERIAL REFLEX on 07-07-2024 Troponin I.cardiac [Mass/Vol] 0.120 ng/mL High <0.034 [facility] Comment on above: Result Comment: SONYA Gabmino COMMENTS: Patients with high levels of Biotin oral intake (ie >5 mg/day) may have falsely decreased Troponin levels. Performed By: #### L [id number], [id number] ####Calciminer: GATO GRAY ([id number])[facility])[address] [place] [address] Troponin I.cardiac [Mass/Vol ]Ordered By: Astrid Link on 07-07-2024 Interpretation and review of laboratory results Abnormal [facility] Patients with high l evels of Biotin oral intake (ie >5 mg/day) may have falsely decreased Troponin levels. [facility] Troponin I.cardiac [Mass/Vol ]on 07-07-2024 Interpretation and review of laboratory results Abnormal [facility] Patients with high l evels of Biotin oral intake (ie >5 mg/day) may have falsely decreased Troponin levels. [facility] Interpretation and review of laboratory results Abnormal [facility] Slightly Hemolyzed. Interpret Troponin I with caution. Patients with high levels of Biotin oral intake (ie >5 mg/day) may have falsely decreased Troponin levels. [facility] Interpretation and review of laboratory results Abnormal [employer] Patients with high l evels of Biotin oral intake (ie >5 mg/day) may have falsely decreased Troponin levels. [facility] TransthoracicOrdere d By: Bert Roberts on 07-07-2024 Ao Root Index 1.62 cm/m2 [employer] Phone: Aortic Root 3.5 cm [employer] Phone: Ascending Aorta 3.3 cm [employer] Phone: Ascending Aorta Index 1.53 cm/m2 [employer] Phone: AV Area by Peak Velocity 3.7 cm2 [employer] Phone: AV Area by VTI 3.7 cm2 [employer] Phone: AV Mean Gradient 6 mmHg [employer] Phone: AV Mean Velocity 1.2 m/s [employer] Phone: AV Peak Gradient 11 mmHg [employer] Phone: AV Peak Velocity 1.6 m/s [employer] Phone: AV Velocity Ratio 0.75 [employer] Phone: AV VTI 27.5 cm [employer] Phone: KEE/BSA Peak Velocity 1.7 cm2/m2 [employer] Phone: KEE/BSA VTI 1.7 cm2/m2 [employer] Phone: E/E' Lateral 7.91 [employer] Phone: E/E' Ratio (Averaged) 8.79 [employer] Phone: E/E' Septal 9.67 [employer] Phone: EF BP 63 % 55 - 100 % [employer] Phone: Est. RA Pressure 3 mmHg [employer] Phone: Fractional Shortening 2D 31 % 28 - 44 % [employer] Phone: Interpretation and review of laboratory results Abnormal [facility] Work Phone: IVC Diameter 1.5 cm [facility] Work Phone: IVSd 1.2 cm Abnormal 0.6 - 1.0 cm [facility] Work Phone: LA Diameter 4.1 cm [facility] Work Phone: LA Size Index 1.9 cm/m2 [facility] Work Phone: LA Volume 2C 51 mL 18 - 58 mL [facility] Work Phone: LA Volume 4C 48 mL 18 - 58 mL [facility] Work Phone: LA Volume A/L 55 mL [facility] Work Phone: LA Volume BP 51 mL 18 - 58 mL [facility] Work Phone: LA Volume Index 2C 24 mL/m2 16 - 34 mL/m2 [facility] Work Phone: LA Volume Index 4C 22 mL/m2 16 - 34 mL/m2 [facility] Work Phone: LA Volume Index A/L 25 mL/m2 16 - 34 mL/m2 [facility] Work Phone: LA Volume Index BP 24 ml/m2 16 - 34 ml/m2 [facility] Work Phone: LA/AO Root Ratio 1.17 [facility] Work Phone: LV E' Lateral Velocity 11 cm/s [facility] Work Phone: LV E' Septal Velocity 9 cm/s [facility] Work Phone: LV EDV A2C 144 mL [facility] Work Phone: LV EDV A4C 158 mL [facility] Work Phone: LV EDV BP 151 mL 67 - 155 mL [facility] Work Phone: LV EDV Index A2C 67 mL/m2 [facility] Work Phone: LV EDV Index A4C 73 mL/m2 [facility] Work Phone: LV EDV Index BP 70 mL/m2 [employer] Work Phone: LV Ejection Fraction A2C 63 % [employer] Work Phone: LV Ejection Fraction A4C 63 % [employer] Work Phone: LV ESV A2C 53 mL [employer] Work Phone: LV ESV A4C 58 mL [employer] Work Phone: LV ESV BP 56 mL 22 - 58 mL [employer] Work Phone: LV ESV Index A2C 25 mL/m2 [employer] Work Phone: LV ESV Index A4C 27 mL/m2 [employer] Work Phone: LV ESV Index BP 26 mL/m2 [employer] Work Phone: LV Mass 2D 200.8 g 88 - 224 g [employer] Work Phone: LV Mass 2D Index 93 g/m2 49 - 115 g/m2 [employer] Work Phone: LV RWT Ratio 0.35 [employer] Work Phone: LVIDd 5.1 cm 4.2 - 5.9 cm [employer] Work Phone: LVIDd Index 2.36 cm/m2 [employer] Work Phone: LVIDs 3.5 cm [employer] Work Phone: LVIDs Index 1.62 cm/m2 [employer] Work Phone: LVOT Area 4.9 cm2 [employer] Work Phone: LVOT Cardiac Output 8.7 liter/mi nu te [employer] Work Phone: LVOT Diameter 2.5 cm [employer] Work Phone: LVOT Mean Gradient 3 mmHg [employer] Work Phone: LVOT Peak Gradient 6 mmHg [employer] Work Phone: LVOT Peak Velocity 1.2 m/s [employer] Work Phone: LVOT Stroke Volume Index 47.9 mL/m2 [facility] Work Phone: LVOT SV 103.5 ml [facility] Work Phone: LVOT VTI 21.1 cm [facility] Work Phone: LVOT:AV VTI Index 0.77 [facility] [employer] Phone: LVPWd 0.9 cm 0.6 - 1.0 cm [facility] Work Phone: MV A Velocity 0.75 m/s [facility] Work Phone: MV E Velocity 0.87 m/s [facility] [employer] Phone: MV E Wave Deceleration Time 229.3 ms [facility] [employer] Phone: MV E/A 1.16 [facility] [employer] Phone: Pulmonary Artery EDP 5 mmHg [facility] Work Phone: RV Basal Dimension 4.5 cm [facility] Work Phone: RV Free Wall Peak S' 19 cm/s [facility] Work Phone: RV Longitudinal Dimension 7.2 cm [facility] [employer] Phone: RV Mid Dimension 3 cm [facility] [employer] Phone: RVSP 59 mmHg [facility] [employer] Phone: TAPSE 2.4 cm 1.7 cm [facility] Work Phone: TR Max Velocity 3.73 m/s [facility] [employer] Phone: TR Peak Gradient 56 mmHg [facility] Work Phone: [facility] [employer] Phone: Heart Transthoracicon Technically difficul t study. Left [...] Conclusions No significant valvular abnormalities.Technically difficult study. [facility] XR CHEST 1 VIEWon 07-07-2024 XR CHEST [...] Electronically Signed Date/Time: 07/07/2024 7:01 PM EDT Normal [facility] XR CLAVICLE RIGHTon 07-07-20 XR CLAVICLE RIGHT [...] Electronically Signed Date/Time: 07/07/2024 11:27 AM EDT Normal [facility] XR Chest Single viewon 07-07 Chronic interstitial changes. There may be mild superimposed pulmonary vascular congestion. Right distal clavicular fracture. Report Dictated on Electronically Signed By: Bert Smith MD Electronically Signed Date/Time: 07/07/2024 7:01 PM EDT [facility] Patient Name: AVERY VASQUEZ : [...] fracture. 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 [facility] Bert Smith MD - 07/07/2024 Patient Name: [...] Electronically Signed Date/Time: 07/07/2024 7:01 PM EDT [facility] Radiology Study observation (narrative) [facility] XR Chest Single viewOrdered By: Bert Smith on 07-07-2024 [facility] XR Clavicle - right Viewson 07-07-2024 Increasing displacem ent of a fragment of known distal right clavicular fractures. Report Dictated on Electronically Signed By: Ramy Anaya MD Electronically Signed Date/Time: 07/07/2024 11:27 AM EDT [facility] Patient Name: AVERY VASQUEZ : [...] evidence of failure. The bones are osteopenic. [facility] Ramy Anaya MD - 07/07/2024 Patient Name: [...] Electronically Signed Date/Time: 07/07/2024 11:27 AM EDT [facility] Radiology Study observation (narrative) [facility] XR FEMUR 1 VW LEFTon 024 XR [...] Signed Date/Time: 07/07/2024 11:30 AM EDT Normal [facility] XR Femur - left Viewson No acute osseous abnormality identified. Degenerative change and osteopenia. Consider follow-up PA and lateral views of the left femur for persistent symptomology. Report Dictated on Electronically Signed By: Ramy Anaya MD Electronically Signed Date/Time: 07/07/2024 11:30 AM EDT [facility] Patient Name: AVERY VASQUEZ : [...] are osteopenic. Phleboliths project over the pelvis. [facility] Ramy Anaya MD - 07/07/2024 [...] Electronically Signed Date/Time: 07/07/2024 11:30 AM EDT [facility] Radiology Study observation (narrative) [facility] XR Femur - left ViewsOrdered By: Ramy Anaya on 07-07-2024 [facility] Work Phone: aPTT Coag (Bld) [Time]on aPTT Coag (PPP) [Time] 58.4 s High 20.0 - 30.5 s [facility] Interpretation and review of laboratory results Abnormal [facility] NOTE: The therapeuti c time for Heparin anticoagulation, based on Xa activity inhibition, is an APTT of 46-80 seconds. [facility] aPTT Coag (PPP) [Time] 57.5 s High 20.0 - 30.5 s [facility] Interpretation and review of laboratory results Abnormal [facility] NOTE: The therapeuti c time for Heparin anticoagulation, based on Xa activity inhibition, is an APTT of 46-80 seconds. [facility] aPTT Coag (PPP) [Time] 44.5 s High 20.0 - 30.5 s [facility] Interpretation and review of laboratory results Abnormal [facility] NOTE: The therapeuti c time for Heparin anticoagulation, based on Xa activity inhibition, is an APTT of 46-80 seconds. [facility] aPTT Coag (PPP) [Time] 33.3 s High 20.0 - 30.5 s [facility] Interpretation and review of laboratory results Abnormal [facility] NOTE: The therapeuti c time for Heparin anticoagulation, based on Xa activity inhibition, is an APTT of 46-80 seconds. [facility] [id number] 07-06-2024 [id number] PE Response Team Tri age Brief HPI: This is a 74 y.o M with a PMH of HTN, HLD and DM who was recently treated at [facility] from 06/26 to 06/27 for right SDH, Multiple right rib fractures, and right distal clavicle fracture. Patient presented back to [place] ED with syncopal episode. He was tachycardic and tachypneic and hypoxic requiring 3L NC. Pert team activated by Dr. Stovall who reported that OSH lab work revealed no elevation in troponin and CTA chest showed b/l segmental lower lobe and right upper lobe, but no heart strain. Patient transferred to [facility] for further care. Hemodynamic instability: No Notable [...] clinical judgment of the primary service. Normal [facility] APTTon 07-06-2024 aPTT Coag (Bld) [Time] 26.5 s Normal 20.0-30.5 [facility] Comment on above: Result Comment: SONYA Gambino COMMENTS: NOTE: The therapeutic time for Heparin anticoagulation, based on Xa activity inhibition, is an APTT of 46-80 seconds. Performed By: #### L [id number] ####Calciminer: GATO GRAY ([id number])[facility])[address] [place] [address] BASIC METABOLIC PANELon 11-0 Anion gap [Moles/Vol] 8 mmol/L Normal 3-13 [facility] Comment on above: Performed By: #### L AB15, [id number], [id number] ####Calciminer: GATO GRAY ([id number])[facility])[address] [place] [address] Calcium [Mass/Vol] 9.7 mg/dL Normal 8.4-10.4 [facility] Comment on above: Performed By: #### L AB15, [id number], [id number] ####Calciminer: GATO GRAY ([id number])[facility])[address] [place] [address] Chloride [Moles/Vol] 106 mmol/L Normal 98-107 [facility] Comment on above: Performed By: #### L AB15, [id number], [id number] ####Calciminer: GATO GRAY ([id number])[facility])[address] [place] [address] CO2 [Moles/Vol] 17 mmol/L Low 22-30 [facility] Comment on above: Performed By: #### Dalila AB15, [id number], [id number] ####Calciminer: GATO GRAY ([id number])[facility])[address] [place] [address] Creatinine [Mass/Vol] 0.89 mg/dL Normal 0.66-1.25 [facility] Comment on above: Performed By: #### Dalila AB15, [id number], [id number] ####Calciminer: GATO GRAY ([id number])[address] GLOMERULAR FILTRATION RATE ML/MIN/1.73 SQ M.PREDICTED 89.9 mL/min/1.73m*2 Normal >60.0 [facility] Comment on above: Result Comment: Calc ulation based on the Chronic Kidney Disease Epidemiology Collaboration (CKD-EPI) equation refit without adjustment for race ORDER COMMENTS: Moderately Hemolyzed. Interpret K+, GLUC with caution. Performed By: #### L AB15, [id number], [id number] ####Calciminer: GATO GRAY ([id number])[facility])[address] [place] [address] Glucose [Mass/Vol] 148 mg/dL High 70-100 [facility] Comment on above: Performed By: #### L AB15, [id number], [id number] ####Calciminer: GATO GRAY ([id number])[address] Potassium [Moles/Vol] 4.9 mmol/L Normal 3.5-5.1 [facility] Comment on above: Performed By: #### L AB15, [id number], [id number] ####Calciminer: GATO GRAY ([id number])[facility])[address] [place] [address] Sodium [Moles/Vol] 132 mmol/L Low 135-[address] [facility] Comment on above: Performed By: #### L AB15, [id number], [id number] ####Calciminer: GATO GRAY ([id number])[facility])[address] [place] [address] Urea nitrogen [Mass/Vol] 21 mg/dL High 9-20 [facility] Comment on above: Performed By: #### L AB15, [id number], [id number] ####Calciminer: GATO GRAY ([id number])[facility] [facility])[address] [place] [address] Basic metabolic 1998 panelon 07-06-2024 Anion gap [Moles/Vol] 8 mmol/L 3 - 13 mmol/L [facility] Calcium [Mass/Vol] 9.7 mg/dL 8.4 - 10. 4 mg/dL [facility] Chloride [Moles/Vol] 106 mmol/L 98 - 10 7 mmol/L [facility] CO2 [Moles/Vol] 17 mmol/L Low 22 - 30 mmol/L [facility] Creatinine [Mass/Vol] 0.89 mg/dL 0.66 - 1.25 mg/dL [facility] GFR/1.73 sq M.predicted (S/P/Bld) [Vol rate/Area] 89.9 mL/min - PINF [facility] Comment on above: Calculation based on the Chronic Kidney Disease Epidemiology Collaboration (CKD-EPI) equation refit without adjustment for race Glucose [Mass/Vol] 148 mg/dL High 70 - 100 mg/dL [facility] Interpretation and review of laboratory results Abnormal [facility] Potassium [Moles/Vol] 4.9 mmol/L 3.5 - 5.1 mmol/L [facility] Sodium [Moles/Vol] 132 mmol/L Low 135 - 145 mmol/L [facility] Urea nitrogen [Mass/Vol] 21 mg/dL High 9 - 20 mg/dL [facility] Moderately Hemolyzed . Interpret K+, GLUC with caution. [facility] CBC (HEMOGRAM)on 07-06-2024 Erythrocyte distribution width (RBC) [Ratio] 14.0 % Normal 11.5-15.0 [facility] Comment on above: Performed By: #### L [id number] ####Calciminer: GATO GRAY ([id number])[facility])[address] [place] [address] Hematocrit (Bld) [Volume fraction] 35.2 % Low 40.0-52.0 [facility] Comment on above: Performed By: #### L [id number] ####Calciminer: GATO GRAY ([id number])[facility])[address] [place] [address] Hemoglobin (Bld) [Mass/Vol] 11.9 g/dL Low 13.0-18.0 [facility] Comment on above: Performed By: #### L [id number] ####Calciminer: GATO GRAY ([id number])[facility])[address] [place] [address] MCH (RBC) [Entitic mass] 29.8 pg Normal 26.0-34.0 [facility] Comment on above: Performed By: #### L [id number] ####Calciminer: GATO GRAY ([id number])[facility])[address] [place] [address] MCHC 33.8 % Normal 30.5-36.[address] [facility] Comment on above: Performed By: #### L [id number] ####Calciminer: GATO GRAY ([id number])[facility])[address] [place] [address] MCV (RBC) [Entitic vol] 88.2 fL Normal 77.0-99.0 [facility] Comment on above: Performed By: #### L [id number] ####Calciminer: GATO GRAY ([id number])[facility])[address] [place] [address] Platelet mean volume (Bld) [Entitic vol] 10.2 fL Normal 9.0-12.[address] [facility] Comment on above: Performed By: #### L [id number] ####Calciminer: GATO GRAY ([id number])[facility])[address] [place] [address] Platelets (Bld) [#/Vol] 239 10*3/uL Normal 140-440 [facility] Comment on above: Performed By: #### L [id number] ####Calciminer: GATO GRAY ([id number])[facility])[address] [place] [address] RBC (Bld) [#/Vol] 3.99 10*6/uL Low 4.40-5.90 [facility] Comment on above: Performed By: #### L [id number] ####Calciminer: GATO GRAY ([id number])[facility])[address] [place] [address] WBC (Bld) [#/Vol] 24.3 10*3/uL High 3.6-10.7 [facility] Comment on above: Performed By: #### L [id number] ####Calciminer: GATO GRAY ([id number])[facility])[address] [place] [address] CBC panel Auto (Bld)on 07-06 Erythrocyte distribution width (RBC) [Ratio] 14 % 11.5 - 15.0 % [facility] Hematocrit (Bld) [Volume fraction] 35.2 % Low 40.0 - 52.0 % [facility] Hemoglobin (Bld) [Mass/Vol] 11.9 g/dL Low 13.0 - 18.0 g/dL [facility] Interpretation and review of laboratory results Abnormal [facility] MCH (RBC) [Entitic mass] 29.8 pg 26.0 - 34.0 pg [facility] MCHC (RBC) [Mass/Vol] 33.8 % 30.5 - 36.0 % [facility] MCV (RBC) [Entitic vol] 88.2 fL 77.0 - 99.0 fL [facility] Platelet mean volume (Bld) [Entitic vol] 10.2 fL 9.0 - 12.7 fL [facility] Platelets (Bld) [#/Vol] 239 10*3/uL 140 - 440 10*3/uL [facility] RBC (Bld) [#/Vol] 3.99 10*6/uL Low 4.40 - 5.90 10*6/uL [facility] WBC (Bld) [#/Vol] 24.3 10*3/uL High 3.6 - 10.7 10*3/uL [facility] Laboratory - Chemistry and C hemistry - challengeon 07-06-2024 Troponin I.cardiac [Mass/Vol] 0.078 ng/mL High NINF - 0.034 ng/mL [facility] NT PRO BNPon 07-06-2024 Natriuretic peptide B (Bld) [Mass/Vol] 423 pg/mL High <125 [facility] Comment on above: Performed By: #### L AB15, [id number], [id number] ####Calciminer: GATO GRAY ([id number])[facility] ([address] Natriuretic peptide B [Mass/ Vol]Ordered By: Avery Gonzalez on 07-06-2024 Interpretation and review of laboratory results Abnormal [facility] Natriuretic peptide B (Bld) [Mass/Vol] 423 pg/mL High NINF - 125 pg/mL [facility] Nursing Noteon 07-06-2024 Nursing Note APTT drawn at 2301 resulted at a subtherapeutic number. Per Dr. Stovall, redraw APTT at 0000 on 07/07 to double check before adjusting IV pump per algorithm. Normal [facility] Progress Noteon 07-06-2024 Progress Note I was notified by e resident that the patient had arrived on T2 as a Direct Admit. I immediately came to T2 ICU to evaluate patient. I was at the bedside within 15 minutes of patient arrival. Please see H&P for further details. Normal [facility] TROPONIN, WITH SERIAL REFLEX on 07-06-2024 Troponin I.cardiac [Mass/Vol] 0.078 ng/mL High <0.034 [facility] Comment on above: Result Comment: ORDE R COMMENTS: Moderately Hemolyzed. Interpret Troponin with caution. Patients with high levels of Biotin oral intake (ie >5 mg/day) may have falsely decreased Troponin levels. Performed By: #### L AB15, [id number], [id number] ####Calciminer: GATO GRAY ([id number])[facility] ([facility])[address] [place] [address] Troponin I.cardiac [Mass/Vol ]on 07-06-2024 Interpretation and review of laboratory results Abnormal [facility] Moderately Hemolyzed . Interpret Troponin with caution. Patients with high levels of Biotin oral intake (ie >5 mg/day) may have falsely decreased Troponin levels. [facility] aPTT Coag (Bld) [Time]on aPTT Coag (PPP) [Time] 26.5 s 20.0 - 30.5 s [facility] Interpretation and review of laboratory results Normal [facility] NOTE: The therapeuti c time for Heparin anticoagulation, based on Xa activity inhibition, is an APTT of 46-80 seconds. [facility] Office Visiton 07-03-2024 Follow-up visit [id number] Avery Vasquez 1950 M Date Provider Department Center 07/03/2024 [id number]-BPRLOJGODFREY MYERS [facility] None No family history on file Level of Service:87550 UT OFFICE/OUTPATIENT ESTABLISHED LOW [facility] 20 MIN Reason for Visit and Comments: Follow-up [410881] - follow up CT Normal [facility] Progress Noteon 07-03-2024 Progress Note NEUROSURGERY and [facility] NE FOLLOW-UP NOTE Patient Name: Avery Vasquez [...] His scalp laceration was suture by the [facility] ED team and appears to be healing [...] team on PRN basis. Godfrey Myers MD [facility] Neurosurgery I have spent 20 minutes reviewing previous notes, test results, and face to face with the patient discussing the diagnosis and importance of compliance with the treatment plan, as well as documenting on the day of the visit. [facility] 36on 07-02-2024 36 Spoke with patient, had his neck and head CT last week on 06/27. Scheduled a follow up for tomorrow 07/03 [facility] 36 Name of Caller: Sven blackburn Contact Reason for Appointment: Patient states that he received a text message on Tuesday or Tuesday offering a sooner appointment than 07/13/24 and he would like to know if it is still available. Please call and advise. Office Name: Neurosurgery [facility] [id number] 06-27-2024 [id number] Spoke with PCP's off ice. Dr. Argueta [...] home care orders. She states she understands. [facility] [id number] Senior Production Manager following case for Discharge Needs. [facility] [id number] 06-27-2024 [id number] Next Site of Care Admission Date: 06/26/2024 01:00 PM Patient Name: AVERY VASQUEZ Location: [address] ICU/[facility] [id number] A Date of : 1950 -- Placement Information -- Referral Type:Home Health Care Services - New Referral ID:[id number] Provider Name:[facility] Address 2: City:[place] Selection Factors:Patient/Family Choice State:[place] Normal [facility] [phone] Care Managment Initi al Assessment Date: 06/27/2024 Patient Name: Avery Vasquez : 1950 Patient Information Source of Information: Patient Cognition/Language: WFL - Within Functional Limits Permission given to speak with patient career services representative/caregiver as indicated: No Confirmation of Payer with patient/family: Yes Payer Name: Medicare Shelly: No Confirmation of Primary Care Physician: Confirmed [...] Prescription Coverage: Yes Pharmacy Used: [facility] in [place] Medication Management: Independent Transportation/Shopping: Independent Transportation Mode: [...] home with home PT, HCL notified. Normal [facility] BASIC METABOLIC PANELon 10- Anion gap [Moles/Vol] 8 mmol/L Normal 3-13 [facility] Comment on above: Performed By: #### L AB15 ####Calciminer: GATO GRAY ([id number])[facility])[address] [place] [address] Calcium [Mass/Vol] 9.7 mg/dL Normal 8.4-10.4 [facility] Comment on above: Performed By: #### L AB15 ####Calciminer: GATO GRAY ([id number])[facility])[address] [place] [address] Chloride [Moles/Vol] 108 mmol/L High 98-107 [facility] Comment on above: Performed By: #### L AB15 ####Calciminer: GATO GRAY ([id number])[facility])[address] [place] [address] CO2 [Moles/Vol] 19 mmol/L Low 22-30 [facility] Comment on above: Performed By: #### L AB15 ####Calciminer: GATO GRAY ([id number])[facility])[address] [place] [address] Creatinine [Mass/Vol] 0.90 mg/dL Normal 0.66-1.25 [facility] Comment on above: Performed By: #### L AB15 ####Calciminer: GATO GRAY ([id number])[facility])[address] [place] [address] GLOMERULAR FILTRATION RATE ML/MIN/1.73 SQ M.PREDICTED 89.6 mL/min/1.73m*2 Normal >60.0 [facility] Comment on above: Result Comment: Calc ulation based on the Chronic Kidney Disease Epidemiology Collaboration (CKD-EPI) equation refit without adjustment for race Performed By: #### L AB15 ####Calciminer: GATO GRAY ([id number])[facility])[address] [place] [address] Glucose [Mass/Vol] 114 mg/dL High 70-100 [facility] Comment on above: Performed By: #### L AB15 ####Calciminer: GATO GRAY ([id number])[facility])[address] [place] [address] Potassium [Moles/Vol] 4.2 mmol/L Normal 3.5-5.1 [facility] Comment on above: Performed By: #### L AB15 ####Calciminer: GATO GRAY ([id number])[facility])[address] [place] [address] Sodium [Moles/Vol] 136 mmol/L Normal 135-145 [facility] Comment on above: Performed By: #### L AB15 ####Calciminer: GATO GRAY ([id number])[facility])[address] [place] [address] Urea nitrogen [Mass/Vol] 22 mg/dL High 9-20 [facility] Comment on above: Performed By: #### L AB15 ####Calciminer: GATO GRAY ([id number])[facility])[address] [place] [address] Basic metabolic 1998 panelon 06-27-2024 Anion gap [Moles/Vol] 8 mmol/L 3 - 13 mmol/L [facility] Calcium [Mass/Vol] 9.7 mg/dL 8.4 - 10. 4 mg/dL [facility] Chloride [Moles/Vol] 108 mmol/L High 98 - 10 7 mmol/L [facility] CO2 [Moles/Vol] 19 mmol/L Low 22 - 30 mmol/L [facility] Creatinine [Mass/Vol] 0.9 mg/dL 0.66 - 1.25 mg/dL [facility] GFR/1.73 sq M.predicted (S/P/Bld) [Vol rate/Area] 89.6 mL/min - PINF [facility] Comment on above: Calculation based on the Chronic Kidney Disease Epidemiology Collaboration (CKD-EPI) equation refit without adjustment for race Glucose [Mass/Vol] 114 mg/dL High 70 - 100 mg/dL [facility] Interpretation and review of laboratory results Abnormal [facility] Potassium [Moles/Vol] 4.2 mmol/L 3.5 - 5.1 mmol/L [facility] Sodium [Moles/Vol] 136 mmol/L 135 - 145 mmol/L [facility] Urea nitrogen [Mass/Vol] 22 mg/dL High 9 - 20 mg/dL [facility] CBC W Auto Differential pane l (Bld)on 06-27-2024 Basophils (Bld) [#/Vol] 0 10*3/uL 0.0 - 0.2 10*3/uL [facility] Basophils/100 WBC (Bld) 0.2 % 0.0 - 2.0 % [facility] Eosinophils (Bld) [#/Vol] 0 10*3/uL 0.0 - 0.5 10*3/uL [facility] Eosinophils/100 WBC (Bld) 0.3 % 0.0 - 6.0 % [facility] Erythrocyte distribution width (RBC) [Ratio] 14.6 % 11.5 - 15.0 % [facility] Hematocrit (Bld) [Volume fraction] 34.8 % Low 40.0 - 52.0 % [facility] Hemoglobin (Bld) [Mass/Vol] 11.5 g/dL Low 13.0 - 18.0 g/dL [facility] Immature granulocytes (Bld) [#/Vol] 0 10*3/uL NINF - 0.1 10*3/uL [facility] Immature granulocytes/100 WBC (Bld) 0.3 % 0.0 - 2.0 % [facility] Interpretation and review of laboratory results Abnormal [facility] Lymphocytes (Bld) [#/Vol] 1.5 10*3/uL 1.0 - 4.3 10*3/uL [facility] Lymphocytes/100 WBC (Bld) 14.2 % Low 15.0 - 45.0 % [facility] MCH (RBC) [Entitic mass] 29.5 pg 26.0 - 34.0 pg [facility] MCHC (RBC) [Mass/Vol] 33 % 30.5 - 36.0 % [facility] MCV (RBC) [Entitic vol] 89.2 fL 77.0 - 99.0 fL [facility] Monocytes (Bld) [#/Vol] 1.2 10*3/uL High 0.0 - 0.9 10*3/uL [facility] Monocytes/100 WBC (Bld) 11 % 5.0 - 13.0 % [facility] Neutrophils (Bld) [#/Vol] 7.7 10*3/uL High 1.8 - 7.5 10*3/uL [facility] Neutrophils/100 WBC (Bld) 74 % 38.0 - 82.0 % [facility] Nucleated RBC/100 WBC (Bld) [Ratio] 0 % [facility] Platelet mean volume (Bld) [Entitic vol] 9.7 fL 9.0 - 12.7 fL [facility] Platelets (Bld) [#/Vol] 229 10*3/uL 140 - 440 10*3/uL [facility] RBC (Bld) [#/Vol] 3.9 10*6/uL Low 4.40 - 5.90 10*6/uL [facility] WBC (Bld) [#/Vol] 10.4 10*3/uL 3.6 - 10.7 10*3/uL [facility] CBC WITH AUTO DIFFERENTIALon 06-27-2024 Basophils (Bld) [#/Vol] 0.0 10*3/uL Normal 0.0-0.[address] [facility] Comment on above: Performed By: #### L [id number] ####Calciminer: GATO GRAY ([id number])[address] Basophils/100 WBC (Bld) 0.2 % Normal 0.0-2.0 [facility] Comment on above: Performed By: #### L [id number] ####Calciminer: GATO GRAY ([id number])[facility])[address] [place] [address] Eosinophils (Bld) [#/Vol] 0.0 10*3/uL Normal 0.0-0.[address] [facility] Comment on above: Performed By: #### L [id number] ####Calciminer: GATO GRAY ([id number])[address] Eosinophils/100 WBC (Bld) 0.3 % Normal 0.0-6.0 [facility] Comment on above: Performed By: #### L [id number] ####Calciminer: GATO GRAY ([id number])[facility])[address] [place] [address] Erythrocyte distribution width (RBC) [Ratio] 14.6 % Normal 11.5-15.0 [facility] Comment on above: Performed By: #### L [id number] ####Calciminer: GATO GRAY ([id number])[address] Hematocrit (Bld) [Volume fraction] 34.8 % Low 40.0-52.0 [facility] Comment on above: Performed By: #### L [id number] ####Calciminer: GATO GRAY ([id number])[address] Hemoglobin (Bld) [Mass/Vol] 11.5 g/dL Low 13.0-18.0 [facility] Comment on above: Performed By: #### L [id number] ####Calciminer: GATO GRAY ([id number])[address] IMMATURE GRANS % 0.3 % Normal 0.0-2.0 [facility] Comment on above: Performed By: #### L [id number] ####Calciminer: GATO GRAY ([id number])[address] IMMATURE GRANS ABSOLUTE 0.0 10*3/uL Normal <0.1 [facility] Comment on above: Performed By: #### L [id number] ####Calciminer: GATO GRAY ([id number])[facility])[address] [place] [address] Lymphocytes (Bld) [#/Vol] 1.5 10*3/uL Normal 1.0-4.[address] [facility] Comment on above: Performed By: #### L [id number] ####Calciminer: GATO GRAY ([id number])[facility])[address] [place] [address] Lymphocytes/100 WBC (Bld) 14.2 % Low 15.0-45.[address] [facility] Comment on above: Performed By: #### L [id number] ####Calciminer: GATO GRAY ([id number])[address] MCH (RBC) [Entitic mass] 29.5 pg Normal 26.0-34.[address] [facility] Comment on above: Performed By: #### L [id number] ####Calciminer: GATO GRAY ([id number])[facility])[address] [place] [address] MCHC 33.0 % Normal 30.5-36.[address] [facility] Comment on above: Performed By: #### L [id number] ####Calciminer: GATO GRAY ([id number])[facility])[address] [place] [address] MCV (RBC) [Entitic vol] 89.2 fL Normal 77.0-99.0 [facility] Comment on above: Performed By: #### L [id number] ####Calciminer: GATO GRAY ([id number])[facility])[address] [place] [address] Monocytes (Bld) [#/Vol] 1.2 10*3/uL High 0.0-0.[address] [facility] Comment on above: Performed By: #### L [id number] ####Calciminer: GATO GRAY ([id number])[facility])[address] [place] [address] Monocytes/100 WBC (Bld) 11.0 % Normal 5.0-13.0 [facility] Comment on above: Performed By: #### L [id number] ####Calciminer: GATO GRAY ([id number])[facility])[address] [place] [address] NEUTROPHILS ABSOLUTE 7.7 10*3/uL High 1.8-7.5 [facility] Comment on above: Performed By: #### L [id number] ####Calciminer: GATO GRAY ([id number])[facility])[address] [place] [address] Neutrophils/100 WBC (Bld) 74.0 % Normal 38.0-82.0 [facility] Comment on above: Performed By: #### L [id number] ####Calciminer: GATO GRAY ([id number])[facility])[address] [place] [address] NRBC 0.0 /100 WBCs Normal 0.0-2.0 [facility] Comment on above: Performed By: #### L [id number] ####Calciminer: GATO GRAY ([id number])[facility])[address] [place] [address] Platelet mean volume (Bld) [Entitic vol] 9.7 fL Normal 9.0-12.7 [facility] Comment on above: Performed By: #### L [id number] ####Calciminer: GATO GRAY ([id number])[facility])[address] [place] [address] Platelets (Bld) [#/Vol] 229 10*3/uL Normal 140-440 [facility] Comment on above: Performed By: #### L [id number] ####Calciminer: GATO GRAY ([id number])[facility])[address] [place] [address] RBC (Bld) [#/Vol] 3.90 10*6/uL Low 4.40-5.90 [facility] Comment on above: Performed By: #### L [id number] ####Calciminer: GATO MATTSONGrupo ([id number])[facility] [place] [address] WBC (Bld) [#/Vol] 10.4 10*3/uL Normal 3.6-10.7 [facility] Comment on above: Performed By: #### L [id number] ####Calciminer: GATO GRAY ([id number])[facility])[address] [place] [address] CT HEAD NECK ANGIO W AND WO IV CONTRASTon 06-27-2024 CT HEAD NECK ANGIO W AND WO IV CONTRAST Patient Name: AVERY VASQUEZ : 1950 Exam [...] at a high flow rate following a vp business development study. Multiplanar and 3D MIP reconstruction was [...] There is a origin of the right EGG BREAKER Anterior communicating artery: Normal Posterior communicating arteries: [...] cow attach, r rib 2-3 fx Normal [facility] CTA Head vessels and Neck ve ssels [...] MD Electronically Signed Date/Time: 06/27/2024 9:13 AM [facility] Patient Name: AVERY VASQUEZ : 1950 [facility]#: [id number] Exam Date/Time: 06/27/2024 05:22 Procedure: CT HEAD [...] at a high flow rate following a vp business development study. Multiplanar and 3D MIP reconstruction was [...] There is a origin of the right EGG BREAKER Anterior communicating artery: Normal Posterior communicating arteries: Normal Aneurysm or vascular malformation: None identified. [facility] Jerry Sweet MD - 06/27/2024 Patient Name: AVERY VASQUEZ : [address] [facility]#: [id number] Exam Date/Time: 06/27/2024 05:22 Procedure: CT HEAD [...] at a high flow rate following a vp business development study. Multiplanar and 3D MIP reconstruction was [...] There is a origin of the right EGG BREAKER Anterior communicating artery: Normal Posterior communicating arteries: [...] Electronically Signed Date/Time: 06/27/2024 9:13 AM EDT [facility] Radiology Study observation (narrative) [facility] CTA Head vessels and Neck ve ssels WO and W contrast IVOrdered By: Jerry Sweet on 06-27-2024 [facility] Work Phone: Consulton 06-27-2024 Consult PAGING: The Acute Pa in Service providers are available exclusively via [employer]. APS does not utilize pagers. 06/27/2024 BLOCK COMMUNICATION NOTE Patient/MRN Avery Vasquez [id number] Room T205 Block requested Rib Block: right anterior second and third rib fractures. Platelets Lab Results Component Value Date PLT 229 06/27/2024 PLT 276 06/26/2024 Block will not produce analgesia due to location of rib fractures. APS will sign off, thank you NG: The Acute Pain Service providers are available exclusively via [employer]. APS does not utilize pagers. Normal [facility] Consult ------ -- Attestation signed by Godfrey [...] please call with questions. Godfrey Myers MD [facility] Neurosurgery I spent 60 minutes of my [...] 107 mmol/L (more content not included)... Normal [facility] Laboratory - Chemistry and C hemistry - challengeon 06-27-2024 Glucose [Mass/Vol] 163 mg/dL High 70 - 100 mg/dL [facility] Glucose [Mass/Vol] 164 mg/dL High 70 - 100 mg/dL [facility] No Panel Informationon 06-27 Interpretation and review of laboratory results Abnormal [facility] Performed by: [facility], [address] [place] [address] CLIA ID: [id number] [facility] Interpretation and review of laboratory results Abnormal [facility] Performed by: [facility], [address] [place] [address] CLIA ID: [id number] [facility] Nursing Noteon 06-27-2024 Nursing Note Discharge instructio [...] with all belongings and discharge paperwork. Normal [facility] Progress Noteon 06-27-2024 Progress Note Patient documented [...] IF YOU HAVE ANY QUESTIONS PLEASE CALL [phone] AND LEAVE A MESSAGE. THE [facility] STAFF IS CURRENTLY WORKING REMOTELY BUT CHECKING VOICEMAIL REGULARLY AND WILL RETURN YOUR CALL SOON POSSIBLE. THANK YOU! Class 3 obesity [facility] Progress Note Nutrition Assessment Type and Reason for Visit: Initial Nutrition Recommendations/Plan: Continue with Regular diet. Sign off to community dietitian. 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 Estimated Daily Nutrient Needs: Energy Requirements Based On: Kcal/kg Weight Used for Energy Requirements: [place] Weight for Energy Calculation (kg): 70 kg Total Energy Requirements (kcals/day): 25-30 kcals/kg = 2345-8828 kcals/day Weight Used for Protein Requirements: [place] Weight in Kg Used for Protein Requirements: [...] 7.7 oz) (06/27/24) Weight Source: Bed Scale [place] Body Weight (lbs) (Calculated): 154 lbs [place] Body Weight (Kg) (Calculated): 70 kg % [place] Body Weight (Calculated): 150.3 % BMI (kg/m2) [...] Planning: Too soon to determine Roxanne Rees RD,LD,[facility] Contact: *[phone] or Itineris [facility] Progress Note ------ -- Attestation signed by [...] to q4 neuro checks -Appreciate NSG consultation -Jerardo Acute pain -PRN tylenol and oxycodone Cardiac: [...] minutes (including chart/data review/analysis, care coordination, and [id number] encounter), and was spent discussing/counseling the patient/family [...] & Acute Care Surgery Department of Surgery [facility] -- Daily Trauma Progress Note Resident 06/27/2024 [...] and attac (more content not included)... Normal [facility] BASIC METABOLIC PANELon 10-2 Anion gap [Moles/Vol] 8 mmol/L Normal 3-13 [facility] Comment on above: Performed By: #### L [id number] ####Calciminer: GATO GRAY ([id number])[facility])[address] [place] [address] Calcium [Mass/Vol] 10.6 mg/dL High 8.4-10.4 [facility] Comment on above: Performed By: #### L [id number] ####Calciminer: GATO GRAY ([id number])[facility])[address] [place] [address] Chloride [Moles/Vol] 109 mmol/L High 98-107 [facility] Comment on above: Performed By: #### L [id number] ####Calciminer: GATO GRAY ([id number])[facility])[address] [place] [address] CO2 [Moles/Vol] 19 mmol/L Low 22-30 [facility] Comment on above: Performed By: #### L [id number] ####Calciminer: GATO GRAY ([id number])[facility])[address] [place] [address] Creatinine [Mass/Vol] 0.77 mg/dL Normal 0.66-1.25 [facility] Comment on above: Performed By: #### L [id number] ####Calciminer: GATO GRAY ([id number])[facility])[address] [place] [address] GLOMERULAR FILTRATION RATE ML/MIN/1.73 SQ M.PREDICTED >90.0 Normal >60.0 [facility] Comment on above: Result Comment: Calc ulation based on the Chronic Kidney Disease Epidemiology Collaboration (CKD-EPI) equation refit without adjustment for race Performed By: #### L [id number] ####Calciminer: GATO GRAY ([id number])[facility])[address] [place] [address] [place] Glucose [Mass/Vol] 148 mg/dL High 70-100 [facility] Comment on above: Performed By: #### L [id number] ####Calciminer: GATO GRAY ([id number])[facility])[address] [place] [address] Potassium [Moles/Vol] 4.9 mmol/L Normal 3.5-5.1 [facility] Comment on above: Performed By: #### L [id number] ####Calciminer: GATO GRAY ([id number])[facility])[address] [place] [address] Sodium [Moles/Vol] 136 mmol/L Normal 135-145 [facility] Comment on above: Performed By: #### L [id number] ####Calciminer: GATO GRAY ([id number])[facility])[address] [place] [address] Urea nitrogen [Mass/Vol] 21 mg/dL High 9-20 [facility] Comment on above: Performed By: #### L [id number] ####Calciminer: GATO GRAY ([id number])[facility])[address] [place] [address] Basic metabolic 1998 panelon 06-26-2024 Anion gap [Moles/Vol] 8 mmol/L 3 - 13 mmol/L [facility] Calcium [Mass/Vol] 10.6 mg/dL High 8.4 - 10. 4 mg/dL [facility] Chloride [Moles/Vol] 109 mmol/L High 98 - 10 7 mmol/L [facility] CO2 [Moles/Vol] 19 mmol/L Low 22 - 30 mmol/L [facility] Creatinine [Mass/Vol] 0.77 mg/dL 0.66 - 1.25 mg/dL [facility] GFR/1.73 sq M.predicted (S/P/Bld) [Vol rate/Area] - PINF [facility] Comment on above: Calculation based on the Chronic Kidney Disease Epidemiology Collaboration (CKD-EPI) equation refit without adjustment for race Glucose [Mass/Vol] 148 mg/dL High 70 - 100 mg/dL [facility] Interpretation and review of laboratory results Abnormal [facility] Potassium [Moles/Vol] 4.9 mmol/L 3.5 - 5.1 mmol/L [facility] Sodium [Moles/Vol] 136 mmol/L 135 - 145 mmol/L [facility] Urea nitrogen [Mass/Vol] 21 mg/dL High 9 - 20 mg/dL [facility] CBC W Auto Differential pane l (Bld)on 06-26-2024 Basophils (Bld) [#/Vol] 0 10*3/uL 0.0 - 0.2 10*3/uL [facility] Basophils/100 WBC (Bld) 0.2 % 0.0 - 2.0 % [facility] Eosinophils (Bld) [#/Vol] 0 10*3/uL 0.0 - 0.5 10*3/uL [facility] Eosinophils/100 WBC (Bld) 0 % 0.0 - 6.0 % [facility] Erythrocyte distribution width (RBC) [Ratio] 14.3 % 11.5 - 15.0 % [facility] Hematocrit (Bld) [Volume fraction] 40.2 % 40.0 - 52.0 % [facility] Hemoglobin (Bld) [Mass/Vol] 13.1 g/dL 13.0 - 18.0 g/dL [facility] Immature granulocytes (Bld) [#/Vol] 0.1 10*3/uL High NINF - 0.1 10*3/uL [facility] Immature granulocytes/100 WBC (Bld) 0.3 % 0.0 - 2.0 % [facility] Interpretation and review of laboratory results Abnormal [facility] Lymphocytes (Bld) [#/Vol] 0.8 10*3/uL Low 1.0 - 4.3 10*3/uL [facility] Lymphocytes/100 WBC (Bld) 4.7 % Low 15.0 - 45.0 % [facility] MCH (RBC) [Entitic mass] 29.1 pg 26.0 - 34.0 pg [facility] MCHC (RBC) [Mass/Vol] 32.6 % 30.5 - 36.0 % [facility] MCV (RBC) [Entitic vol] 89.3 fL 77.0 - 99.0 fL [facility] Monocytes (Bld) [#/Vol] 0.7 10*3/uL 0.0 - 0.9 10*3/uL [facility] Monocytes/100 WBC (Bld) 4.7 % Low 5.0 - 13.0 % [facility] Neutrophils (Bld) [#/Vol] 14.2 10*3/uL High 1.8 - 7.5 10*3/uL [facility] Neutrophils/100 WBC (Bld) 90.1 % High 38.0 - 82.0 % [facility] Nucleated RBC/100 WBC (Bld) [Ratio] 0 % [facility] Platelet mean volume (Bld) [Entitic vol] 9.7 fL 9.0 - 12.7 fL [facility] Platelets (Bld) [#/Vol] 276 10*3/uL 140 - 440 10*3/uL [facility] RBC (Bld) [#/Vol] 4.5 10*6/uL 4.40 - 5.90 10*6/uL [facility] WBC (Bld) [#/Vol] 15.8 10*3/uL High 3.6 - 10.7 10*3/uL [facility] CBC WITH AUTO DIFFERENTIALon 06-26-2024 Basophils (Bld) [#/Vol] 0.0 10*3/uL Normal 0.0-0.[address] [facility] Comment on above: Performed By: #### L [id number] ####Calciminer: GATO GRAY ([id number])[facility])[address] [place] [address] Basophils/100 WBC (Bld) 0.2 % Normal 0.0-2.0 [facility] Comment on above: Performed By: #### L [id number] ####Calciminer: GATO GRAY ([id number])[facility])[address] [place] [address] [place] Eosinophils (Bld) [#/Vol] 0.0 10*3/uL Normal 0.0-0.[address] [facility] Comment on above: Performed By: #### L [id number] ####Calciminer: GATO GRAY ([id number])[facility])[address] [place] [address] Eosinophils/100 WBC (Bld) 0.0 % Normal 0.0-6.[address] [facility] Comment on above: Performed By: #### L [id number] ####Calciminer: GATO [id number])[facility])[address] [place] [address] Erythrocyte distribution width (RBC) [Ratio] 14.3 % Normal 11.5-15.[address] [facility] Comment on above: Performed By: #### L [id number] ####Calciminer: GATO GRAY ([id number])[facility])[address] [place] [address] Hematocrit (Bld) [Volume fraction] 40.2 % Normal 40.0-52.[address] [facility] Comment on above: Performed By: #### L [id number] ####Calciminer: GATO GRAY ([id number])[facility])[address] [place] [address] Hemoglobin (Bld) [Mass/Vol] 13.1 g/dL Normal 13.0-18.[address] [facility] Comment on above: Performed By: #### L [id number] ####Calciminer: GATO GRAY ([id number])[facility])[address] [place] [address] IMMATURE GRANS % 0.3 % Normal 0.0-2.[address] [facility] Comment on above: Performed By: #### L [id number] ####Calciminer: GATO GRAY ([id number])[facility])[address] [place] [address] IMMATURE GRANS ABSOLUTE 0.1 10*3/uL High <0.[address] [facility] Comment on above: Performed By: #### L [id number] ####Calciminer: GATO GRAY ([id number])[facility])[address] [place] [address] Lymphocytes (Bld) [#/Vol] 0.8 10*3/uL Low 1.0-4.[address] [facility] Comment on above: Performed By: #### L [id number] ####Calciminer: GATO GRAY ([id number])[facility])[address] [place] [address] [place] Lymphocytes/100 WBC (Bld) 4.7 % Low 15.0-45.[address] [facility] Comment on above: Performed By: #### L [id number] ####Calciminer: GATO GRAY ([id number])[facility])[address] [place] [address] MCH (RBC) [Entitic mass] 29.1 pg Normal 26.0-34.[address] [facility] Comment on above: Performed By: #### L [id number] ####Calciminer: GATO GRAY ([id number])[facility])[address] [place] [address] MCHC 32.6 % Normal 30.5-36.[address] [facility] Comment on above: Performed By: #### L [id number] ####Calciminer: GATO GRAY ([id number])[facility])[address] [place] [address] MCV (RBC) [Entitic vol] 89.3 fL Normal 77.0-99.0 [facility] Comment on above: Performed By: #### L [id number] ####Calciminer: GATO GRAY ([id number])[facility])[address] [place] [address] Monocytes (Bld) [#/Vol] 0.7 10*3/uL Normal 0.0-0.[address] [facility] Comment on above: Performed By: #### L [id number] ####Calciminer: GATO GRAY ([id number])[facility])[address] [place] [address] Monocytes/100 WBC (Bld) 4.7 % Low 5.0-13.0 [facility] Comment on above: Performed By: #### L [id number] ####Calciminer: GATO GRAY ([id number])[facility])[address] [place] [address] NEUTROPHILS ABSOLUTE 14.2 10*3/uL High 1.8-7.5 [facility] Comment on above: Performed By: #### L [id number] ####Calciminer: GATO GRAY ([id number])[facility])[address] [place] [address] Neutrophils/100 WBC (Bld) 90.1 % High 38.0-82.[address] [facility] Comment on above: Performed By: #### L [id number] ####Calciminer: GATO GRAY ([id number])[facility])[address] [place] [address] NRBC 0.0 /100 WBCs Normal 0.0-2.[address] [facility] Comment on above: Performed By: #### L [id number] ####Calciminer: GATO GRAY ([id number])[facility])[address] [place] [address] Platelet mean volume (Bld) [Entitic vol] 9.7 fL Normal 9.0-12.[address] [facility] Comment on above: Performed By: #### L [id number] ####Calciminer: GATO GRAY ([id number])[facility])[address] [place] [address] Platelets (Bld) [#/Vol] 276 10*3/uL Normal 140-[address] [facility] Comment on above: Performed By: #### L [id number] ####Calciminer: GATO GRAY ([id number])[facility])[address] [place] [address] RBC (Bld) [#/Vol] 4.50 10*6/uL Normal 4.40-5.[address] [facility] Comment on above: Performed By: #### L [id number] ####Calciminer: GATO GRAY ([id number])[facility])[address] [place] [address] WBC (Bld) [#/Vol] 15.8 10*3/uL High 3.6-10.[address] [facility] Comment on above: Performed By: #### L [id number] ####Calciminer: GATO GRAY ([id number])[facility])[address] [place] [address] CT CHEST WO IV CONTRASTon CT CHEST WO IV CONTRAST [facility] 1950 [id number] Exam Date/Time: 06/26/2024 21:12 Procedure: CT CHEST [...] pain, concern for rib fracture on the [facility] CT Chest WO contraston 10-22 -2024 1. Right distal clavicle fracture and nondisplaced right anterior second and third rib fractures. 2. No other acute traumatic injuries. 3. Cardiomegaly, three-vessel coronary artery calcification, and small pericardial effusion. Report Dictated on Electronically Signed By: Edenilson Barnett MD Electronically Signed Date/Time: 06/26/2024 9:21 PM EDT [facility] Patient Name: AVERY VASQUEZ : 1950 Exam Date/Time: 06/26/2024 21:12 Procedure: [...] is partially visualized shoulder arthroplasty hardware bilaterally. [facility] Edenilson Barnett M D - 06/26/2024 Patient Name: AVERY VASQUEZ : 1950 Exam Date/Time: 06/26/2024 21:12 Procedure: [...] Electronically Signed Date/Time: 06/26/2024 9:21 PM EDT [facility] Radiology Study observation (narrative) [facility] Chest WO contrastOrdered By: Edenilson Barnett on 06-26-2024 [employer] [facility] Work Phone: CT HEAD WO IV CONTRASTon CT HEAD WO IV CONTRAST Patient Name: AEVRY ESPAÑA : 1950 Exam Date/Time: 06/26/2024 18:20 [...] Electronically Signed Date/Time: 06/26/2024 6:44 PM EDT [facility] CT Head WO contraston 2023 Subarachnoid hemorrhage [...] Electronically Signed Date/Time: 06/26/2024 6:44 PM EDT [facility] [employer] [facility] Patient Name: AVERY [facility]ASQUEZ [facility] 1950 [id number] Exam Date/Time: 06/26/2024 18:20 Procedure: CT HEAD [...] is atherosclerotic calcification of the carotid siphons. [facility] Bert Smith MD - 06/26/2024 Patient Name: AVERY VASQUEZ : 1950 Exam Date/Time: 06/26/2024 18:20 Procedure: [...] Electronically Signed Date/Time: 06/26/2024 6:44 PM EDT [facility] Radiology Study observation (narrative) [facility] Consulton 06-26-2024 Consult Ortho Consult Patient: Avery Vasquez Date of : 1950 Acct: [id number] PCP: Aidan Argueta MD Date of Admission: [...] Take 81 mg by mouth daily. Historical ProviderMD atorvastatin (Lipitor) 10 MG tablet Take 10 mg by mouth Nightly. Historical ProviderMD Calcium Carbonate-Vit D-Min (Calcium 600+D3 Plus Minerals) 600-800 MG-UNIT tablet Take 1 tablet by mouth daily. Historical ProviderMD dapagliflozin (Farxiga) 10 MG tablet Take 10 mg by mouth daily. Historical ProviderMD dulaglutide (Trulicity) 0.75 MG/0.5ML Inject 0.75 mg [...] Spouse n (more content not included)... Normal [facility] Laboratory - Chemistry and C hemistry - challengeon 06-26-2024 Glucose [Mass/Vol] 180 mg/dL High 70 - 100 mg/dL [facility] Glucose [Mass/Vol] 161 mg/dL High 70 - 100 mg/dL [facility] No Panel Informationon 06-26 Interpretation and review of laboratory results Abnormal [facility] Performed by: [facility], [address] [place] [address] CLIA ID: [id number] [facility] Interpretation and review of laboratory results Abnormal [facility] Performed by: [facility], [address] [place] [address] CLIA ID: [id number] [facility] Progress Noteon 06-26-2024 Progress Note I was notified by [facility] resident that the patient had arrived on T2 as a Direct Admit. I immediately came to T2 ICU to evaluate patient. I was at the bedside within 15 minutes of patient arrival. Please see H&P for further details. Normal [facility] XR CLAVICLE RIGHTon 06-26-20 24 XR CLAVICLE [...] Electronically Signed Date/Time: 06/26/2024 5:57 PM EDT [facility] XR Clavicle - right Viewson 06-26-2024 Mildly displaced right distal clavicular fracture. Report Dictated on Electronically Signed By: Bert Smith MD Electronically Signed Date/Time: 06/26/2024 5:57 PM EDT [facility] Patient Name: AVERY VASQUEZ : 1950 Exam [...] of the right upper ribs are unremarkable. [facility] Bert Smith MD - 06/26/2024 Patient Name: [...] Electronically Signed Date/Time: 06/26/2024 5:57 PM EDT [facility] Radiology Study observation (narrative) [facility] XR Clavicle - right ViewsOrd ered By: Bert Smith on 06-26-2024 [facility] Basophil percentageOrdered B y: Aidan Argueta on 11-14-2023 Bilirubin [Mass/Vol] 0.60 mg/dL 0.20-1.00 [facility] Comment on above: For patients on eltr ombopag therapy, use of Dimension [place] TBIL is not recommended. Chloride [Moles/Vol] 108 mmol/L 98-107 [facility] Cholesterol [Mass/Vol] 140 mg/dL <200 [facility] Comment on above: <200 mg/dL Desirable 200-240 mg/dL Borderline >240 mg/dL High Risk Glucose [Mass/Vol] 161 mg/dL 74-106 [facility] Comment on above: Fasting Glucose resu lt greater than or equal to 126 mg/dL suggests DIABETES MELLITUS per A.D.A. criteria. Potassium [Moles/Vol] 4.1 mmol/L 3.5-5.1 [facility] Protein [Mass/Vol] 7.5 g/dL 6.4-8.2 [facility] Sodium [Moles/Vol] 139 mmol/L 136-145 [facility] Triglyceride [Mass/Vol] 56 mg/dL <199 [facility] Comment on above: The drugs N-Acetylcy steine and Metamizole may falsely depress this assay.Serum Triglycerides Reference Interval Normal <150 mg/dL Borderline high 150 - 199 mg/dL High 200 - 499 mg/dL Very High > or = 500 mg/dL Laboratory - Chemistry and C hemistry - challengeOrdered By: Aidan Argueta on 11-14-2023 Albumin/Globulin [Mass ratio] 0.8 {ratio} 0.9-2.4 [facility] ALP [Catalytic activity/Vol] 98 U/L 45-117 [facility] ALT [Catalytic activity/Vol] 38 U/L 16-61 [facility] Cholesterol in HDL [Mass/Vol] 50 mg/dL >40 [facility] Comment on above: The drugs N-Acetylcy steine and Metamizole may falsely depress this assay. Reference Range HDL <40 mg/dL Low HDL Cholesterol HDL >or= 60 mg/dL High HDL Cholesterol Cholesterol in LDL [Mass/Vol] 79 mg/dL 0-130 [facility] CO2 [Moles/Vol] 25.0 mmol/L 21.0-32.0 [facility] Globulin (S) [Mass/Vol] 4.1 g/dL 2.2-4.2 [facility] Urea nitrogen/Creatinine [Mass ratio] 22.2 mg/mg 10-20 [facility] No Panel InformationOrdered By: Aidan Argueta on 11-14-2023 Estimated GFR (MDRD) Amer 120 mL/min >60 [facility] Comment on above: GFR Calc Estimated GFR (MDRD) Non-Af Amer 99 mL/min >60 [facility] Comment on above: Non- GFR Calc Prostate Specific Antigen Screen 5.04 ng/mL 0.00-4.00 [facility] Comment on above: This test was perfor med using the TPSA assay method for [employer] chemistry system. Values obtained with differentassay methods cannot be used interchangably.When changing PSA assays in the course of monitoring apatient, additional sequential testing should be carriedout to confirm baseline values. VLDL Cholesterol 11 mg/dL 5-40 [facility] Serum or plasma calcium winsome urement (mass/volume)Ordered By: Aidan Argueta on 11-14-2023 Calcium [Mass/Vol] 10.0 mg/dL 8.5-10.1 [facility] Serum or plasma creatinine m easurement (mass/volume)Ordered By: Aidan Argueta on 11-14-2023 Creatinine [Mass/Vol] 0.81 mg/dL 0.70-1.30 [facility] Comment on above: The validity of the calculated GFR & GFRAA in patients over 70 years has not been determined. Clinical correlation is essential. Serum or plasma urea nitroge n measurement (mass/volume)Ordered By: Aidan Argueta on 11-14-2023 Urea nitrogen [Mass/Vol] 18 mg/dL 7-18 [facility] Thin prep Papanicolaou smear with manual screeningOrdered By: Aidan Argueta on 11-14-2023 Thin prep Papanicolaou smear with manual screening 3.4 g/dL 3.2-5.0 [facility] Thin prep Papanicolaou smear with manual screening 19 U/L 15-37 [facility] Thin prep Papanicolaou smear with manual screening 6 5-15 [facility] Whole blood hemoglobin A1c/t otal hemoglobin ratio (mass fraction)Ordered By: Aidan Argueta on 11-14-2023 HbA1c (Bld) [Mass fraction] 7.3 % 3.8-5.6 [facility] Comment on above: Normal < 5.7 % Predi abetic 5.7 - 6.4 % Diabetic >or= 6.5 % Please note range changes. Absolute lymphocyte countOrd ered By: Aidan Argueta on 07-18-2023 Lymphocytes Auto (Unsp spec) [#/Vol] 1.30 10*3/uL 0.83-4.51 [facility] Basophil percentageOrdered B y: Aidan Argueta on 07-18-2023 Basophils/100 WBC (Bld) 0.6 % 0-1 [facility] Bilirubin [Mass/Vol] 0.40 mg/dL 0.20-1.00 [facility] Comment on above: For patients on eltr ombopag therapy, use of Dimension [place] TBIL is not recommended. Chloride [Moles/Vol] 105 mmol/L 98-107 [facility] Cholesterol [Mass/Vol] 129 mg/dL <200 [facility] Comment on above: <200 mg/dL Desirable 200-240 mg/dL Borderline >240 mg/dL High Risk Eosinophils/100 WBC (Bld) 2.8 % 0-5 [facility] Glucose [Mass/Vol] 134 mg/dL 74-106 [facility] Comment on above: Fasting Glucose resu lt greater than or equal to 126 mg/dL suggests DIABETES MELLITUS per A.D.A. criteria. Neutrophils (Bld) [#/Vol] 4.3 10*3/uL 2.0-7.7 [facility] Neutrophils/100 WBC (Bld) 67.6 % 47-70 [facility] Potassium [Moles/Vol] 4.4 mmol/L 3.5-5.1 [facility] Protein [Mass/Vol] 7.5 g/dL 6.4-8.2 [facility] Sodium [Moles/Vol] 138 mmol/L 136-145 [facility] Triglyceride [Mass/Vol] 55 mg/dL <199 [facility] Comment on above: The drugs N-Acetylcy steine and Metamizole may falsely depress this assay.Serum Triglycerides Reference Interval Normal <150 mg/dL Borderline high 150 - 199 mg/dL High 200 - 499 mg/dL Very High > or = 500 mg/dL WBC (Bld) [#/Vol] 6.3 10*3/uL 4.4-11.0 [facility] Blood erythrocytes count (nu mber/volume)Ordered By: Aidan Argueta on 07-18-2023 RBC (Bld) [#/Vol] 4.58 10*6/uL 4.6-6.2 [facility] Blood hemoglobin measurement (mass/volume)Ordered By: Aidan Argueta on 07-18-2023 Hemoglobin (Bld) [Mass/Vol] 13.2 g/dL 13.0-16.5 [facility] Blood lymphocytes/100 leukoc ytesOrdered By: Aidan Argueta on 07-18-2023 Lymphocytes/100 WBC (Bld) 20.5 % 19-41 [facility] Blood monocytes/100 leukocyt esOrdered By: Aidan Argueta on 07-18-2023 Monocytes/100 WBC (Bld) 8.2 % 0-10 [facility] Blood platelet mean volumeOr dered By: Aidan Argueta on 07-18-2023 Platelet mean volume (Bld) [Entitic vol] 10.6 fL 6.2-12.0 [facility] Determination of erythrocyte mean corpuscular volume (MCV)Ordered By: Aidan Argueta on 07-18-2023 MCV (RBC) [Entitic vol] 90.4 fL 80-94 [facility] Hematocrit Auto (Bld) [Volum e fraction]Ordered By: Aidan Argueta on 07-18-2023 Hematocrit (Bld) [Volume fraction] 41.4 % 40-54 [facility] Laboratory - Chemistry and C hemistry - challengeOrdered By: Aidan Argueta on 07-18-2023 ALP [Catalytic activity/Vol] 109 U/L 45-117 [facility] ALT [Catalytic activity/Vol] 33 U/L 16-61 [facility] CO2 [Moles/Vol] 26.0 mmol/L 21.0-32.0 [facility] Globulin (S) [Mass/Vol] 3.9 g/dL 2.2-4.2 [facility] Urea nitrogen/Creatinine [Mass ratio] 25.1 mg/mg 10-20 [facility] Laboratory - Hematology and Cell countsOrdered By: Aidan Argueta on 07-18-2023 Erythrocyte distribution width (RBC) [Entitic vol] 47.2 fL 35.1-43.9 [facility] Erythrocyte distribution width (RBC) [Ratio] 14.2 % 11.6-14.6 [facility] Immature granulocytes/100 WBC (Bld) 0.300 % 0.0-0.9 [facility] Comment on above: IG% - Immature Granu locytes (promyelocytes, myelocytes and metamyelocytes) > 1% indicates that a LEFT SHIFT is Present. MCH (RBC) [Entitic mass] 28.8 pg 27.0-32.0 [facility] Nucleated RBC/100 WBC (Bld) [Ratio] 0 % 0-5 [facility] MCHC Auto (RBC) [Mass/Vol]Or dered By: Aidan Argueta on 07-18-2023 MCHC (RBC) [Mass/Vol] 31.9 g/dL 32-36 [facility] No Panel InformationOrdered By: Aidan Argueta on 07-18-2023 Estimated GFR (MDRD) Amer 116 mL/min >60 [facility] Comment on above: GFR Calc Estimated GFR (MDRD) Non-Af Amer 96 mL/min >60 [facility] Comment on above: Non- GFR Calc Vitamin D 25-Hydroxy 50.6 ng/mL [facility] Comment on above: Vitamin D 25(OH) Sta tus Range Deficiency <20 ng/mL (50nmol/L) Insufficiency 20 - 30 ng/mL (50 - 75 nmol/L) Sufficiency 30 - 100 ng/mL (75 - 250 nmol/L) Toxicity >100 ng/mL (>250 nmol/L) Platelets bldOrdered By: Todd Argueta on 07-18-2023 Platelets (Bld) [#/Vol] 276 10*3/uL 150-450 [facility] Serum or plasma albumin winsome urement (mass/volume)Ordered By: Aidan Argueta on 07-18-2023 Albumin [Mass/Vol] 3.6 g/dL 3.2-5.0 [facility] Serum or plasma albumin/glob ulin mass ratioOrdered By: Aidan Argueta on 07-18-2023 Albumin/Globulin [Mass ratio] 0.9 {ratio} 0.9-2.4 [facility] Serum or plasma calcium winsome urement (mass/volume)Ordered By: Aidan Argueta on 07-18-2023 Calcium [Mass/Vol] 10.1 mg/dL 8.5-10.1 [facility] Serum or plasma cholesterol in HDL measurement (mass/volume)Ordered By: Aidan Argueta on 07-18-2023 Cholesterol in HDL [Mass/Vol] 54 mg/dL >40 [facility] Comment on above: The drugs N-Acetylcy steine and Metamizole may falsely depress this assay. Reference Range HDL <40 mg/dL Low HDL Cholesterol HDL >or= 60 mg/dL High HDL Cholesterol Serum or plasma cholesterol in VLDL measurement (mass/volume)Ordered By: Aidan Argueta on 07-18-2023 Cholesterol in VLDL [Mass/Vol] 11 mg/dL 5-40 [facility] Serum or plasma creatinine m easurement (mass/volume)Ordered By: Aidan Argueta on 07-18-2023 Creatinine [Mass/Vol] 0.84 mg/dL 0.70-1.30 [facility] Comment on above: The validity of the calculated GFR & GFRAA in patients over 70 years has not been determined. Clinical correlation is essential. Serum or plasma low density lipoprotein (LDL) cholesterol measurement (mass/volume)Ordered By: Aidan Argueta on 07-18-2023 Cholesterol in LDL [Mass/Vol] 64 mg/dL 0-130 [facility] Serum or plasma urea nitroge n measurement (mass/volume)Ordered By: Aidan Argueta on 07-18-2023 Urea nitrogen [Mass/Vol] 21 mg/dL 7-18 [facility] Thin prep Papanicolaou smear with manual screeningOrdered By: Aidan Argueta on 07-18-2023 Thin prep Papanicolaou smear with manual screening 16 U/L 15-37 [facility] Thin prep Papanicolaou smear with manual screening 7 5-15 [facility] Whole blood hemoglobin A1c/t otal hemoglobin ratio (mass fraction)Ordered By: Aidan Argueta on 07-18-2023 HbA1c (Bld) [Mass fraction] 6.5 % 3.8-5.6 [facility] Comment on above: Normal < 5.7 % Predi abetic 5.7 - 6.4 % Diabetic >or= 6.5 % Please note range changes. Absolute lymphocyte countOrd ered By: Aidan Argueta on 04-28-2023 Lymphocytes Auto (Unsp spec) [#/Vol] 1.39 10*3/uL 0.83-4.51 [facility] Basophil percentageOrdered B y: Aidan Argueta on 04-28-2023 Basophils/100 WBC (Bld) 0.7 % 0-1 [facility] Bilirubin [Mass/Vol] 0.40 mg/dL 0.20-1.00 [facility] Comment on above: For patients on eltr ombopag therapy, use of Dimension [place] TBIL is not recommended. Chloride [Moles/Vol] 103 mmol/L 98-107 [facility] Cholesterol [Mass/Vol] 117 mg/dL <200 [facility] Comment on above: <200 mg/dL Desirable 200-240 mg/dL Borderline >240 mg/dL High Risk Eosinophils/100 WBC (Bld) 3.6 % 0-5 [facility] Glucose [Mass/Vol] 120 mg/dL 74-106 [facility] Comment on above: Fasting Glucose resu lt from 100 to 125 mg/dL suggests IMPAIRED HOMEOSTASIS per A.D.A. criteria. Neutrophils (Bld) [#/Vol] 4.7 10*3/uL 2.0-7.7 [facility] Neutrophils/100 WBC (Bld) 67.4 % 47-70 [facility] Potassium [Moles/Vol] 4.6 mmol/L 3.5-5.1 [facility] Protein [Mass/Vol] 7.7 g/dL 6.4-8.2 [facility] Sodium [Moles/Vol] 136 mmol/L 136-145 [facility] Triglyceride [Mass/Vol] 62 mg/dL <199 [facility] Comment on above: The drugs N-Acetylcy steine and Metamizole may falsely depress this assay.Serum Triglycerides Reference Interval Normal <150 mg/dL Borderline high 150 - 199 mg/dL High 200 - 499 mg/dL Very High > or = 500 mg/dL WBC (Bld) [#/Vol] 6.9 10*3/uL 4.4-11.0 [facility] Blood erythrocytes count (nu mber/volume)Ordered By: Aidan Argueta on 04-28-2023 RBC (Bld) [#/Vol] 4.64 10*6/uL 4.6-6.2 [facility] Blood hemoglobin measurement (mass/volume)Ordered By: Aidan Argueta on 04-28-2023 Hemoglobin (Bld) [Mass/Vol] 13.8 g/dL 13.0-16.5 [facility] Blood lymphocytes/100 leukoc ytesOrdered By: Aidan Argueta on 04-28-2023 Lymphocytes/100 WBC (Bld) 20.1 % 19-41 [facility] Blood monocytes/100 leukocyt esOrdered By: Aidan Argueta on 04-28-2023 Monocytes/100 WBC (Bld) 7.8 % 0-10 [facility] Blood platelet mean volumeOr dered By: Aidan Argueta on 04-28-2023 Platelet mean volume (Bld) [Entitic vol] 10.0 fL 6.2-12.0 [facility] Determination of erythrocyte mean corpuscular volume (MCV)Ordered By: Aidan Argueta on 04-28-2023 MCV (RBC) [Entitic vol] 89.9 fL 80-94 [facility] Hematocrit Auto (Bld) [Volum e fraction]Ordered By: Aidan Argueta on 04-28-2023 Hematocrit (Bld) [Volume fraction] 41.7 % 40-54 [facility] Laboratory - Chemistry and C hemistry - challengeOrdered By: Aidan Argueta on 04-28-2023 ALP [Catalytic activity/Vol] 114 U/L 45-117 [facility] ALT [Catalytic activity/Vol] 34 U/L 16-61 [facility] CO2 [Moles/Vol] 28.0 mmol/L 21.0-32.0 [facility] Globulin (S) [Mass/Vol] 3.9 g/dL 2.2-4.2 [facility] Urea nitrogen/Creatinine [Mass ratio] 25.5 mg/mg 10-20 [facility] Laboratory - Hematology and Cell countsOrdered By: Aidan Argueta on 04-28-2023 Erythrocyte distribution width (RBC) [Entitic vol] 45.1 fL 35.1-43.9 [facility] Erythrocyte distribution width (RBC) [Ratio] 13.7 % 11.6-14.6 [facility] Immature granulocytes/100 WBC (Bld) 0.400 % 0.0-0.9 [facility] Comment on above: IG% - Immature Granu locytes (promyelocytes, myelocytes and metamyelocytes) > 1% indicates that a LEFT SHIFT is Present. MCH (RBC) [Entitic mass] 29.7 pg 27.0-32.0 [facility] Nucleated RBC/100 WBC (Bld) [Ratio] 0 % 0-5 [facility] MCHC Auto (RBC) [Mass/Vol]Or dered By: Aidan Argueta on 04-28-2023 MCHC (RBC) [Mass/Vol] 33.1 g/dL 32-36 [facility] No Panel InformationOrdered By: Aidan Argueta on 04-28-2023 Estimated GFR (MDRD) Amer 125 mL/min >60 [facility] Comment on above: GFR Calc Estimated GFR (MDRD) Non-Af Amer 103 mL/min >60 [facility] Comment on above: Non- GFR Calc Parathyroid Hormone (Intact) 40.2 pg/mL 18.4-80.1 [facility] Thyroid Stimulating Hormone (TSH) 0.74 uIU/mL 0.358-3.74 [facility] Vitamin D 25-Hydroxy 38.3 ng/mL [facility] Comment on above: Vitamin D 25(OH) Sta tus Range Deficiency <20 ng/mL (50nmol/L) Insufficiency 20 - 30 ng/mL (50 - 75 nmol/L) Sufficiency 30 - 100 ng/mL (75 - 250 nmol/L) Toxicity >100 ng/mL (>250 nmol/L) Platelets bldOrdered By: Todd Argueta on 04-28-2023 Platelets (Bld) [#/Vol] 245 10*3/uL 150-450 [facility] Serum or plasma albumin winsome urement (mass/volume)Ordered By: Aidan Argueta on 04-28-2023 Albumin [Mass/Vol] 3.8 g/dL 3.2-5.0 [facility] Serum or plasma albumin/glob ulin mass ratioOrdered By: Aidan Argueta on 04-28-2023 Albumin/Globulin [Mass ratio] 1.0 {ratio} 0.9-2.4 [facility] Serum or plasma calcium winsome urement (mass/volume)Ordered By: Aidan Argueta on 04-28-2023 Calcium [Mass/Vol] 9.9 mg/dL 8.5-10.1 [facility] Serum or plasma cholesterol in HDL measurement (mass/volume)Ordered By: Aidan Argueta on 04-28-2023 Cholesterol in HDL [Mass/Vol] 46 mg/dL >40 [facility] Comment on above: The drugs N-Acetylcy steine and Metamizole may falsely depress this assay. Reference Range HDL <40 mg/dL Low HDL Cholesterol HDL >or= 60 mg/dL High HDL Cholesterol Serum or plasma cholesterol in VLDL measurement (mass/volume)Ordered By: Aidan Argueta on 04-28-2023 Cholesterol in VLDL [Mass/Vol] 12 mg/dL 5-40 [facility] Serum or plasma creatinine m easurement (mass/volume)Ordered By: Aidan Argueta on 04-28-2023 Creatinine [Mass/Vol] 0.78 mg/dL 0.70-1.30 [facility] Comment on above: The validity of the calculated GFR & GFRAA in patients over 70 years has not been determined. Clinical correlation is essential. Serum or plasma low density lipoprotein (LDL) cholesterol measurement (mass/volume)Ordered By: Aidan Argueta on 04-28-2023 Cholesterol in LDL [Mass/Vol] 59 mg/dL 0-130 [facility] Serum or plasma urea nitroge n measurement (mass/volume)Ordered By: Aidan Argueta on 04-28-2023 Urea nitrogen [Mass/Vol] 20 mg/dL 7-18 [facility] Thin prep Papanicolaou smear with manual screeningOrdered By: Aidan Argueta on 04-28-2023 Thin prep Papanicolaou smear with manual screening 15 U/L 15-37 [facility] Thin prep Papanicolaou smear with manual screening 5 5-15 [facility] Whole blood hemoglobin A1c/t otal hemoglobin ratio (mass fraction)Ordered By: Aidan Argueta on 04-28-2023 HbA1c (Bld) [Mass fraction] 6.6 % 3.8-5.6 [facility] Comment on above: Normal < 5.7 % Predi abetic 5.7 - 6.4 % Diabetic >or= 6.5 % Please note range changes. Culture, urineOrdered By: Johanny Argueta on 03-10-2023 Bacteria identified Cx Nom (U) Klebsiella pneumoniae sp pneum [facility] Culture, urineOrdered By: Annia Umaña on 03-01-2023 Bacteria identified Cx Nom (U) Klebsiella pneumoniae sp pneum [facility] Absolute lymphocyte countOrd ered By: Aidan Argueta on 01-26-2023 Lymphocytes Auto (Unsp spec) [#/Vol] 1.61 10*3/uL 0.83-4.51 [facility] Basophil percentageOrdered B y: Aidan Argueta on 01-26-2023 Basophils/100 WBC (Bld) 0.8 % 0-1 [facility] Bilirubin [Mass/Vol] 0.40 mg/dL 0.20-1.00 [facility] Comment on above: For patients on eltr ombopag therapy, use of Dimension [place] TBIL is not recommended. Chloride [Moles/Vol] 105 mmol/L 98-107 [facility] Cholesterol [Mass/Vol] 126 mg/dL <200 [facility] Comment on above: <200 mg/dL Desirable 200-240 mg/dL Borderline >240 mg/dL High Risk Eosinophils/100 WBC (Bld) 4.5 % 0-5 [facility] Glucose [Mass/Vol] 112 mg/dL 74-106 [facility] Comment on above: Fasting Glucose resu lt from 100 to 125 mg/dL suggests IMPAIRED HOMEOSTASIS per A.D.A. criteria. Neutrophils (Bld) [#/Vol] 4.9 10*3/uL 2.0-7.7 [facility] Neutrophils/100 WBC (Bld) 64.2 % 47-70 [facility] Potassium [Moles/Vol] 4.3 mmol/L 3.5-5.1 [facility] Protein [Mass/Vol] 7.6 g/dL 6.4-8.2 [facility] Sodium [Moles/Vol] 136 mmol/L 136-145 [facility] Triglyceride [Mass/Vol] 67 mg/dL <199 [facility] Comment on above: The drugs N-Acetylcy steine and Metamizole may falsely depress this assay.Serum Triglycerides Reference Interval Normal <150 mg/dL Borderline high 150 - 199 mg/dL High 200 - 499 mg/dL Very High > or = 500 mg/dL WBC (Bld) [#/Vol] 7.6 10*3/uL 4.4-11.0 [facility] Blood erythrocytes count (nu mber/volume)Ordered By: Aidan Argueta on 01-26-2023 RBC (Bld) [#/Vol] 4.81 10*6/uL 4.6-6.2 [facility] Blood hemoglobin measurement (mass/volume)Ordered By: Aidan Argueta on 01-26-2023 Hemoglobin (Bld) [Mass/Vol] 13.8 g/dL 13.0-16.5 [facility] Blood lymphocytes/100 leukoc ytesOrdered By: Aidan Argueta on 01-26-2023 Lymphocytes/100 WBC (Bld) 21.3 % 19-41 [facility] Blood monocytes/100 leukocyt esOrdered By: Aidan Argueta on 01-26-2023 Monocytes/100 WBC (Bld) 8.9 % 0-10 [facility] Blood platelet mean volumeOr dered By: Aidan Argueta on 01-26-2023 Platelet mean volume (Bld) [Entitic vol] 10.1 fL 6.2-12.0 [facility] Determination of erythrocyte mean corpuscular volume (MCV)Ordered By: Aidan Argueta on 01-26-2023 MCV (RBC) [Entitic vol] 88.4 fL 80-94 [facility] Hematocrit Auto (Bld) [Volum e fraction]Ordered By: Aidan Argueta on 01-26-2023 Hematocrit (Bld) [Volume fraction] 42.5 % 40-54 [facility] Iron measurement (mass/mass) Ordered By: Aidan Argueta on 01-26-2023 Iron (Unsp spec) [Mass/Mass] 96 ug/dL 65-175 [facility] Laboratory - Chemistry and C hemistry - challengeOrdered By: Aidan Argueta on 01-26-2023 ALP [Catalytic activity/Vol] 97 U/L 45-117 [facility] ALT [Catalytic activity/Vol] 30 U/L 16-61 [facility] CO2 [Moles/Vol] 24.0 mmol/L 21.0-32.0 [facility] Cobalamin (Vitamin B12) [Mass/Vol] 499 pg/mL 211-911 [facility] Globulin (S) [Mass/Vol] 3.9 g/dL 2.2-4.2 [facility] Urea nitrogen/Creatinine [Mass ratio] 29.0 mg/mg 10-20 [facility] Laboratory - Hematology and Cell countsOrdered By: Aidan Argueta on 01-26-2023 Erythrocyte distribution width (RBC) [Entitic vol] 48.5 fL 35.1-43.9 [facility] Erythrocyte distribution width (RBC) [Ratio] 14.9 % 11.6-14.6 [facility] Immature granulocytes/100 WBC (Bld) 0.300 % 0.0-0.9 [facility] Comment on above: IG% - Immature Granu locytes (promyelocytes, myelocytes and metamyelocytes) > 1% indicates that a LEFT SHIFT is Present. MCH (RBC) [Entitic mass] 28.7 pg 27.0-32.0 [facility] Nucleated RBC/100 WBC (Bld) [Ratio] 0 % 0-5 [facility] MCHC Auto (RBC) [Mass/Vol]Or dered By: Aidan Argueta on 01-26-2023 MCHC (RBC) [Mass/Vol] 32.5 g/dL 32-36 [facility] No Panel InformationOrdered By: Aidan Argueta on 01-26-2023 Estimated GFR (MDRD) Amer 130 mL/min >60 [facility] Comment on above: GFR Calc Estimated GFR (MDRD) Non-Af Amer 107 mL/min >60 [facility] Comment on above: Non- GFR Calc Parathyroid Hormone (Intact) 35.3 pg/mL 18.4-80.1 [facility] Total Iron Binding Capacity 356 ug/dL 250-450 [facility] Vitamin D 25-Hydroxy 33.8 ng/mL [facility] Comment on above: Vitamin D 25(OH) Sta tus Range Deficiency <20 ng/mL (50nmol/L) Insufficiency 20 - 30 ng/mL (50 - 75 nmol/L) Sufficiency 30 - 100 ng/mL (75 - 250 nmol/L) Toxicity >100 ng/mL (>250 nmol/L) Platelets bldOrdered By: Todd Argueta on 01-26-2023 Platelets (Bld) [#/Vol] 268 10*3/uL 150-450 [facility] Serum or plasma albumin winsome urement (mass/volume)Ordered By: Aidan Argueta on 01-26-2023 Albumin [Mass/Vol] 3.7 g/dL 3.2-5.0 [facility] Serum or plasma albumin/glob ulin mass ratioOrdered By: Aidan Argueta on 01-26-2023 Albumin/Globulin [Mass ratio] 0.9 {ratio} 0.9-2.4 [facility] Serum or plasma calcium winsome urement (mass/volume)Ordered By: Aidan Argueta on 01-26-2023 Calcium [Mass/Vol] 10.4 mg/dL 8.5-10.1 [facility] Serum or plasma cholesterol in HDL measurement (mass/volume)Ordered By: Aidan Argueta on 01-26-2023 Cholesterol in HDL [Mass/Vol] 45 mg/dL >40 [facility] Comment on above: The drugs N-Acetylcy steine and Metamizole may falsely depress this assay. Reference Range HDL <40 mg/dL Low HDL Cholesterol HDL >or= 60 mg/dL High HDL Cholesterol Serum or plasma cholesterol in VLDL measurement (mass/volume)Ordered By: Aidan Argueta on 01-26-2023 Cholesterol in VLDL [Mass/Vol] 13 mg/dL 5-40 [facility] Serum or plasma creatinine m easurement (mass/volume)Ordered By: Aidan Argueta on 01-26-2023 Creatinine [Mass/Vol] 0.76 mg/dL 0.70-1.30 [facility] Comment on above: The validity of the calculated GFR & GFRAA in patients over 70 years has not been determined. Clinical correlation is essential. Serum or plasma ferritin jose surement (mass/volume)Ordered By: Aidan Argueta on 01-26-2023 Ferritin [Mass/Vol] 25 ng/mL 26-388 [facility] Serum or plasma folate measu rement (mass/volume)Ordered By: Aidan Argueta on 01-26-2023 Folate [Mass/Vol] 31.00 ng/mL 3.1-55.4 [facility] Serum or plasma low density lipoprotein (LDL) cholesterol measurement (mass/volume)Ordered By: Aidan Argueta on 01-26-2023 Cholesterol in LDL [Mass/Vol] 68 mg/dL 0-130 [facility] Serum or plasma urea nitroge n measurement (mass/volume)Ordered By: Aidan Argueta on 01-26-2023 Urea nitrogen [Mass/Vol] 22 mg/dL 7-18 [facility] Thin prep Papanicolaou smear with manual screeningOrdered By: Aidan Argueta on 01-26-2023 Thin prep Papanicolaou smear with manual screening 18 U/L 15-37 [facility] Thin prep Papanicolaou smear with manual screening 7 5-15 [facility] Whole blood hemoglobin A1c/t otal hemoglobin ratio (mass fraction)Ordered By: Aidan Argueta on 01-26-2023 HbA1c (Bld) [Mass fraction] 7.0 % 3.8-5.6 [facility] Comment on above: Normal < 5.7 % Predi abetic 5.7 - 6.4 % Diabetic >or= 6.5 % Please note range changes. Absolute lymphocyte countOrd ered By: Dr. Argueta on 11-01-2022 Lymphocytes Auto (Unsp spec) [#/Vol] 0.99 10*3/uL 0.83-4.51 [facility] Basophil percentageOrdered B y: Dr. Argueta on 11-01-2022 Basophils/100 WBC (Bld) 0.7 % 0-1 [facility] Bilirubin [Mass/Vol] 0.20 mg/dL 0.20-1.00 [facility] Comment on above: For patients on eltr ombopag therapy, use of Dimension [place] TBIL is not recommended. Chloride [Moles/Vol] 105 mmol/L 98-107 [facility] Cholesterol [Mass/Vol] 136 mg/dL <200 [facility] Comment on above: <200 mg/dL Desirable 200-240 mg/dL Borderline >240 mg/dL High Risk Eosinophils/100 WBC (Bld) 2.1 % 0-5 [facility] Glucose [Mass/Vol] 196 mg/dL 74-106 [facility] Comment on above: Fasting Glucose resu lt greater than or equal to 126 mg/dL suggests DIABETES MELLITUS per A.D.A. criteria. Neutrophils (Bld) [#/Vol] 5.5 10*3/uL 2.0-7.7 [facility] Neutrophils/100 WBC (Bld) 76.2 % 47-70 [facility] Potassium [Moles/Vol] 4.1 mmol/L 3.5-5.1 [facility] Protein [Mass/Vol] 7.4 g/dL 6.4-8.2 [facility] Sodium [Moles/Vol] 136 mmol/L 136-145 [facility] Triglyceride [Mass/Vol] 95 mg/dL <199 [facility] Comment on above: The drugs N-Acetylcy steine and Metamizole may falsely depress this assay.Serum Triglycerides Reference Interval Normal <150 mg/dL Borderline high 150 - 199 mg/dL High 200 - 499 mg/dL Very High > or = 500 mg/dL WBC (Bld) [#/Vol] 7.3 10*3/uL 4.4-11.0 [facility] Blood erythrocytes count (nu mber/volume)Ordered By: Dr. Argueta on 11-01-2022 RBC (Bld) [#/Vol] 4.50 10*6/uL 4.6-6.2 [facility] Blood hemoglobin measurement (mass/volume)Ordered By: Dr. Argueta on 11-01-2022 Hemoglobin (Bld) [Mass/Vol] 12.9 g/dL 13.0-16.5 [facility] Blood lymphocytes/100 leukoc ytesOrdered By: Dr. Argueta on 11-01-2022 Lymphocytes/100 WBC (Bld) 13.7 % 19-41 [facility] Blood monocytes/100 leukocyt esOrdered By: Dr. Argueta on 11-01-2022 Monocytes/100 WBC (Bld) 7.0 % 0-10 [facility] Blood platelet mean volumeOr dered By: Dr. Argueta on 11-01-2022 Platelet mean volume (Bld) [Entitic vol] 10.5 fL 6.2-12.0 [facility] Determination of erythrocyte mean corpuscular volume (MCV)Ordered By: Dr. Argueta on 11-01-2022 MCV (RBC) [Entitic vol] 89.3 fL 80-94 [facility] Hematocrit Auto (Bld) [Volum e fraction]Ordered By: Dr. Argueta on 11-01-2022 Hematocrit (Bld) [Volume fraction] 40.2 % 40-54 [facility] Iron measurement (mass/mass) Ordered By: Dr. Argueta on 11-01-2022 Iron (Unsp spec) [Mass/Mass] 40 ug/dL 65-175 [facility] Laboratory - Chemistry and C hemistry - challengeOrdered By: Dr. Argueta on 11-01-2022 ALP [Catalytic activity/Vol] 92 U/L 45-117 [facility] ALT [Catalytic activity/Vol] 32 U/L 16-61 [facility] CO2 [Moles/Vol] 25.0 mmol/L 21.0-32.0 [facility] Cobalamin (Vitamin B12) [Mass/Vol] 564 pg/mL 211-911 [facility] Globulin (S) [Mass/Vol] 3.8 g/dL 2.2-4.2 [facility] Urea nitrogen/Creatinine [Mass ratio] 22.4 mg/mg 10-20 [facility] Laboratory - Hematology and Cell countsOrdered By: Dr. Argueta on 11-01-2022 Erythrocyte distribution width (RBC) [Entitic vol] 44.5 fL 35.1-43.9 [facility] Erythrocyte distribution width (RBC) [Ratio] 13.7 % 11.6-14.6 [facility] Immature granulocytes/100 WBC (Bld) 0.300 % 0.0-0.9 [facility] Comment on above: IG% - Immature Granu locytes (promyelocytes, myelocytes and metamyelocytes) > 1% indicates that a LEFT SHIFT is Present. MCH (RBC) [Entitic mass] 28.7 pg 27.0-32.0 [facility] Nucleated RBC/100 WBC (Bld) [Ratio] 0 % 0-5 [facility] MCHC Auto (RBC) [Mass/Vol]Or dered By: Dr. Argueta on 11-01-2022 MCHC (RBC) [Mass/Vol] 32.1 g/dL 32-36 [facility] No Panel InformationOrdered By: Dr. Argueta on 11-01-2022 Estimated GFR (MDRD) Amer 107 mL/min >60 [facility] Comment on above: GFR Calc Estimated GFR (MDRD) Non-Af Amer 89 mL/min >60 [facility] Comment on above: Non- GFR Calc Total Iron Binding Capacity 409 ug/dL 250-450 [facility] Vitamin D 25-Hydroxy 35.2 ng/mL [facility] Comment on above: Vitamin D 25(OH) Sta tus Range Deficiency <20 ng/mL (50nmol/L) Insufficiency 20 - 30 ng/mL (50 - 75 nmol/L) Sufficiency 30 - 100 ng/mL (75 - 250 nmol/L) Toxicity >100 ng/mL (>250 nmol/L) Platelets bldOrdered By: Dr. Argueta on 11-01-2022 Platelets (Bld) [#/Vol] 274 10*3/uL 150-450 [facility] Serum or plasma albumin winsome urement (mass/volume)Ordered By: Dr. Argueta on 11-01-2022 Albumin [Mass/Vol] 3.6 g/dL 3.2-5.0 [facility] Serum or plasma albumin/glob ulin mass ratioOrdered By: Dr. Argueta on 11-01-2022 Albumin/Globulin [Mass ratio] 0.9 {ratio} 0.9-2.4 [facility] Serum or plasma calcium winsome urement (mass/volume)Ordered By: Dr. Argueta on 11-01-2022 Calcium [Mass/Vol] 9.6 mg/dL 8.5-10.1 [facility] Serum or plasma cholesterol in HDL measurement (mass/volume)Ordered By: Dr. Argueta on 11-01-2022 Cholesterol in HDL [Mass/Vol] 46 mg/dL >40 [facility] Comment on above: The drugs N-Acetylcy steine and Metamizole may falsely depress this assay. Reference Range HDL <40 mg/dL Low HDL Cholesterol HDL >or= 60 mg/dL High HDL Cholesterol Serum or plasma cholesterol in VLDL measurement (mass/volume)Ordered By: Dr. Argueta on 11-01-2022 Cholesterol in VLDL [Mass/Vol] 19 mg/dL 5-40 [facility] Serum or plasma creatinine m easurement (mass/volume)Ordered By: Dr. Argueta on 11-01-2022 Creatinine [Mass/Vol] 0.89 mg/dL 0.70-1.30 [facility] Comment on above: The validity of the calculated GFR & GFRAA in patients over 70 years has not been determined. Clinical correlation is essential. Serum or plasma ferritin jose surement (mass/volume)Ordered By: Dr. Argueta on 11-01-2022 Ferritin [Mass/Vol] 14 ng/mL 26-388 [facility] Serum or plasma iron saturat ion measurement (mass fraction)Ordered By: Dr. Argueta on 11-01-2022 Iron saturation [Mass fraction] 9.8 % 15.0-55.0 [facility] Serum or plasma low density lipoprotein (LDL) cholesterol measurement (mass/volume)Ordered By: Dr. Argueta on 11-01-2022 Cholesterol in LDL [Mass/Vol] 71 mg/dL 0-130 [facility] Serum or plasma urea nitroge n measurement (mass/volume)Ordered By: Dr. Argueta on 11-01-2022 Urea nitrogen [Mass/Vol] 20 mg/dL 7-18 [facility] Thin prep Papanicolaou smear with manual screeningOrdered By: Dr. Argueta on 11-01-2022 Thin prep Papanicolaou smear with manual screening 14 U/L 15-37 [facility] Thin prep Papanicolaou smear with manual screening 6 5-15 [facility] Whole blood hemoglobin A1c/t otal hemoglobin ratio (mass fraction)Ordered By: Dr. Argueta on 11-01-2022 HbA1c (Bld) [Mass fraction] 7.1 % 3.8-5.6 [facility] Comment on above: Normal < 5.7 % Predi abetic 5.7 - 6.4 % Diabetic >or= 6.5 % Please note range changes. Absolute lymphocyte countOrd ered By: Dr. Argueta on 09-22-2022 Lymphocytes Auto (Unsp spec) [#/Vol] 1.41 10*3/uL 0.83-4.51 [facility] Basophil percentageOrdered B y: Dr. Argueta on 09-22-2022 Basophils/100 WBC (Bld) 1.1 % 0-1 [facility] Bilirubin [Mass/Vol] 0.30 mg/dL 0.20-1.00 [facility] Comment on above: For patients on eltr ombopag therapy, use of Dimension [place] TBIL is not recommended. Chloride [Moles/Vol] 103 mmol/L 98-107 [facility] Cholesterol [Mass/Vol] 138 mg/dL <200 [facility] Comment on above: <200 mg/dL Desirable 200-240 mg/dL Borderline >240 mg/dL High Risk Eosinophils/100 WBC (Bld) 3.3 % 0-5 [facility] Glucose [Mass/Vol] 198 mg/dL 74-106 [facility] Comment on above: Fasting Glucose resu lt greater than or equal to 126 mg/dL suggests DIABETES MELLITUS per A.D.A. criteria. Neutrophils (Bld) [#/Vol] 5.4 10*3/uL 2.0-7.7 [facility] Neutrophils/100 WBC (Bld) 70.4 % 47-70 [facility] Potassium [Moles/Vol] 4.6 mmol/L 3.5-5.1 [facility] Protein [Mass/Vol] 7.2 g/dL 6.4-8.2 [facility] Sodium [Moles/Vol] 138 mmol/L 136-145 [facility] Triglyceride [Mass/Vol] 118 mg/dL <199 [facility] Comment on above: The drugs N-Acetylcy steine and Metamizole may falsely depress this assay.Serum Triglycerides Reference Interval Normal <150 mg/dL Borderline high 150 - 199 mg/dL High 200 - 499 mg/dL Very High > or = 500 mg/dL WBC (Bld) [#/Vol] 7.6 10*3/uL 4.4-11.0 [facility] Blood erythrocytes count (nu mber/volume)Ordered By: Dr. Argueta on 09-22-2022 RBC (Bld) [#/Vol] 4.88 10*6/uL 4.6-6.2 [facility] Blood hemoglobin measurement (mass/volume)Ordered By: Dr. Argueta on 09-22-2022 Hemoglobin (Bld) [Mass/Vol] 14.3 g/dL 13.0-16.5 [facility] Blood lymphocytes/100 leukoc ytesOrdered By: Dr. Argueta on 09-22-2022 Lymphocytes/100 WBC (Bld) 18.6 % 19-41 [facility] Blood monocytes/100 leukocyt esOrdered By: Dr. Argueta on 09-22-2022 Monocytes/100 WBC (Bld) 6.3 % 0-10 [facility] Blood platelet mean volumeOr dered By: Dr. Argueta on 09-22-2022 Platelet mean volume (Bld) [Entitic vol] 10.2 fL 6.2-12.0 [facility] Determination of erythrocyte mean corpuscular volume (MCV)Ordered By: Dr. Argueta on 09-22-2022 MCV (RBC) [Entitic vol] 88.7 fL 80-94 [facility] Hematocrit Auto (Bld) [Volum e fraction]Ordered By: Dr. Argueta on 09-22-2022 Hematocrit (Bld) [Volume fraction] 43.3 % 40-54 [facility] Laboratory - Chemistry and C hemistry - challengeOrdered By: Dr. Argueta on 09-22-2022 ALP [Catalytic activity/Vol] 94 U/L 45-117 [facility] ALT [Catalytic activity/Vol] 32 U/L 16-61 [facility] CO2 [Moles/Vol] 27.0 mmol/L 21.0-32.0 [facility] Cobalamin (Vitamin B12) [Mass/Vol] 682 pg/mL 211-911 [facility] Globulin (S) [Mass/Vol] 3.5 g/dL 2.2-4.2 [facility] Magnesium [Mass/Vol] 1.9 mg/dL 1.6-2.6 [facility] Urea nitrogen/Creatinine [Mass ratio] 28.4 mg/mg 10-20 [facility] Laboratory - Hematology and Cell countsOrdered By: Dr. Argueta on 09-22-2022 Erythrocyte distribution width (RBC) [Entitic vol] 45.3 fL 35.1-43.9 [facility] Erythrocyte distribution width (RBC) [Ratio] 14.1 % 11.6-14.6 [facility] Immature granulocytes/100 WBC (Bld) 0.300 % 0.0-0.9 [facility] Comment on above: IG% - Immature Granu locytes (promyelocytes, myelocytes and metamyelocytes) > 1% indicates that a LEFT SHIFT is Present. MCH (RBC) [Entitic mass] 29.3 pg 27.0-32.0 [facility] Nucleated RBC/100 WBC (Bld) [Ratio] 0 % 0-5 [facility] MCHC Auto (RBC) [Mass/Vol]Or dered By: Dr. Argueta on 09-22-2022 MCHC (RBC) [Mass/Vol] 33.0 g/dL 32-36 [facility] No Panel InformationOrdered By: Dr. Argueta on 09-22-2022 Estimated GFR (MDRD) Amer 104 mL/min >60 [facility] Comment on above: GFR Calc Estimated GFR (MDRD) Non-Af Amer 86 mL/min >60 [facility] Comment on above: Non- GFR Calc Thyroid Stimulating Hormone (TSH) 0.53 uIU/mL 0.358-3.74 [facility] Urine Microalbumin/Creatinine Ratio 13.3 mg/g CRE <30 [facility] Vitamin B6 Level 13.7 ug/L 3.4-65.2 [facility] Comment on above: Deficiency: <3.4 Mar ginal: 3.4 - 5.1 Adequate: >5.1 Vitamin D 25-Hydroxy 32.2 ng/mL [facility] Comment on above: Vitamin D 25(OH) Sta tus Range Deficiency <20 ng/mL (50nmol/L) Insufficiency 20 - 30 ng/mL (50 - 75 nmol/L) Sufficiency 30 - 100 ng/mL (75 - 250 nmol/L) Toxicity >100 ng/mL (>250 nmol/L) Whole Blood Vitamin B1 Level 149.0 nmol/L 66.5-200.0 [facility] Comment on above: Performed at: - [address] [id number] Director: Emiliana Maguire MD, Phone: [phone] Platelets bldOrdered By: Dr. Argueta on 09-22-2022 Platelets (Bld) [#/Vol] 278 10*3/uL 150-450 [facility] Serum or plasma albumin winsome urement (mass/volume)Ordered By: Dr. Argueta on 09-22-2022 Albumin [Mass/Vol] 3.7 g/dL 3.2-5.0 [facility] Serum or plasma albumin/glob ulin mass ratioOrdered By: Dr. Argueta on 09-22-2022 Albumin/Globulin [Mass ratio] 1.1 {ratio} 0.9-2.4 [facility] Serum or plasma calcium winsome urement (mass/volume)Ordered By: Dr. Argueta on 09-22-2022 Calcium [Mass/Vol] 9.9 mg/dL 8.5-10.1 [facility] Serum or plasma cholesterol in HDL measurement (mass/volume)Ordered By: Dr. Argueta on 09-22-2022 Cholesterol in HDL [Mass/Vol] 52 mg/dL >40 [facility] Comment on above: The drugs N-Acetylcy steine and Metamizole may falsely depress this assay. Reference Range HDL <40 mg/dL Low HDL Cholesterol HDL >or= 60 mg/dL High HDL Cholesterol Serum or plasma cholesterol in VLDL measurement (mass/volume)Ordered By: Dr. Argueta on 09-22-2022 Cholesterol in VLDL [Mass/Vol] 24 mg/dL 5-40 [facility] Serum or plasma creatinine m easurement (mass/volume)Ordered By: Dr. Argueta on 09-22-2022 Creatinine [Mass/Vol] 0.92 mg/dL 0.70-1.30 [facility] Comment on above: The validity of the calculated GFR & GFRAA in patients over 70 years has not been determined. Clinical correlation is essential. Serum or plasma low density lipoprotein (LDL) cholesterol measurement (mass/volume)Ordered By: Dr. Argueta on 09-22-2022 Cholesterol in LDL [Mass/Vol] 62 mg/dL 0-130 [facility] Serum or plasma urea nitroge n measurement (mass/volume)Ordered By: Dr. Argueta on 09-22-2022 Urea nitrogen [Mass/Vol] 26 mg/dL 7-18 [facility] Thin prep Papanicolaou smear with manual screeningOrdered By: Dr. Argueta on 09-22-2022 Thin prep Papanicolaou smear with manual screening 12 U/L 15-37 [facility] Thin prep Papanicolaou smear with manual screening 8 5-15 [facility] Thin prep Papanicolaou smear with manual screening 14.6 mg/L NO RANGE EST. [facility] Urine creatinine measurement (mass/volume)Ordered By: Dr. Argueta on 09-22-2022 Creatinine (U) [Mass/Vol] 110.00 mg/dL NO RANGE EST. [facility] Whole blood hemoglobin A1c/t otal hemoglobin ratio (mass fraction)Ordered By: Dr. Argueta on 09-22-2022 HbA1c (Bld) [Mass fraction] 7.7 % 3.8-5.6 [facility] Comment on above: Normal < 5.7 % Predi abetic 5.7 - 6.4 % Diabetic >or= 6.5 % Please note range changes. MR LUMBAR SP WO CONTRASTon 0 09-16-2022 MR LUMBAR SP WO CONTRAST [address] [address] Patient: AVERY VASQUEZ Phone#: : [phone] Age: 72 Gender: M Pt. Type: Out Account: [id number] Location: Ordering: KAMERON SAHA Exam Date: 09/16/2022/7:40 Family Phys: Charge Code: 790895 Physician: [place] Order #: [id number] Dose#: PROCEDURE: MRI LUMBAR SPINE WITHOUT CONTRAST [...] Lena Connelly MD on 09/16/2022 at 16:08 Normal [facility] ALLIED HEALTHon 06-25-2022 ALLIED HEALTH HNO ID: [id number] Author: RT Rodrigo(R) Service: ? Author Type: School Plant Consultant Type: Allied Health Filed: 06/25/2022 8:11 AM [...] RT Rodrigo(R) June 25, 2022 8:10 AM [facility] 06-25-2022 [facility] Office Visit (ORMDRG ) -- AVERY VASQUEZ ([id number]) 1950 M Date Time Provider Department 06/25/22 8:15 AM BERT ORTIZ ORMALI During your visit today, we recorded the following information about you: Weight Height 108.9 kg 1.727 m Cindy Sheridan PA-C 06/25/2022 8:50 AM Signed Cindy [...] Cindy Sheridan PA-C Referring Provider: BERT ORTIZ [[id number]] Allergies As of Date: 06/25/2022 Noted Allergy [...] Status:Closed by CINDY SHERIDAN on 06/25/[address] [facility] XR SHLDR >/=3V AP/TABITHA AP/OTH R [...] joint arthrosis. No fracture. IMPRESSION: Stable arthroplasty Chief Projectionist: CARINA Transcribe Date/Time: Jun 25 2022 8:19A Dictated by : RANGEL MIMS MD This examination was interpreted and the report reviewed and electronically signed by: RANGEL MIMS MD on Jun 25 2022 8:20AM EST [id number] [facility] XR SHOULDER GENERAL 3V OR MO RE AP/TRUE AP/OTHER LEFTon 06-25-2022 [facility] CNOVon 05-07-2022 CNOV Office Visit (ORMDRG ) -- AVERY VASQUEZ ([id number]) 1950 M Date Time Provider Department 05/07/22 1:30 PM BERT ORTIZ During your visit today, we [...] AND Elbow Surgeon Department of Orthopaedic Surgery [facility] Referring Provider: VICKI DUMONT [[id number]] Allergies As of Date: 05/07/2022 Noted Allergy [...] Encounter Status:Closed by BERT ORTIZ on 05/07/22 [facility] XR SHLDR >/=3V AP/TABITHA AP/OTH R LTon [...] seen. IMPRESSION: Stable Left total shoulder arthroplasty Chief Projectionist: CARINA Transcribe Date/Time: May 07 2022 1:41P Dictated by : ESTRELLA KAUR DO This examination was interpreted and the report reviewed and electronically signed by: ESTRELLA KAUR DO on May 07 2022 1:42PM EST [id number] [facility] XR SHOULDER GENERAL 3V OR MO RE AP/TRUE AP/OTHER LEFTon 05-07-2022 [facility] ALLIED HEALTHon 04-02-2022 ALLIED HEALTH HNO ID: [id number] Author: RT Rodrigo(R) Service: ? Author Type: School Plant Consultant Type: Allied Health Filed: 04/02/2022 1:55 PM [...] DATA: Not applicable SIGNED BY: RT Rodrigo(R) April 02, 2022 1:52 PM [facility] CNOVon 04-02-2022 OV Office Visit (ORRG ) -- AVERY VASQUEZ ([id number]) 1950 M Date Time Provider Department 04/02/22 1:45 PM BERT ORTIZ During your visit today, we [...] Surgeon Department of Orthopaedic Surgery [facility] Referring Provider: VICKI DUMONT [[id number]] Allergies As of Date: 04/02/2022 Noted Allergy [...] Status:Closed by BERT ORTIZ on 04/07/[address] [facility] XR SHLDR >/=3V AP/TABITHA AP/OTH R [...] fracture. IMPRESSION: Postsurgical changes without interval complication. Chief Projectionist: CARINA Transcribe Date/Time: Apr 04 2022 3:26P Dictated by : NISA KITCHEN MD This examination was interpreted and the report reviewed and electronically signed by: NISA KITCHEN MD on Apr 04 2022 3:27PM EST [id number] [facility] ANES POSTPROC EVALon 022 ANES POSTPROC EVAL HNO ID: [id number] Author: Stephanie Ashby MD Service: ? Author Type: Anesthesiologist Type: Anesthesia Postprocedure Evaluation Filed: 03/19/2022 1:11 PM Note Text: POST ANESTHESIA EVALUATION NOTE : 1950 Procedure Summary Date: 03/19/22 Room / Location: [place] [address] / [place] Anesthesia Start: 756 Anesthesia Stop: 946 [...] March 19, 2022 TIME: 1:10 PM CSN: [id number] [facility] ANES PRE-OPon 03-19-2022 ANES PRE-OP HNO ID: [id number] Author: Stephanie Ashby MD Service: ? Author Type: Anesthesiologist Type: Anesthesia Preprocedure Evaluation Filed: 03/19/2022 7:21 AM Note Text: ANESTHESIOLOGY DAY OF SURGERY NOTE : 1950 Procedure Information Date/Time: 03/19/22729 Procedure: REVERSE TOTAL SHOULDER ARTHROPLASTY (Left Shoulder) Location: [place] OR01 / [place] Surgeons: Bert Ortiz MD Estimated body [...] none. Vitals Value Taken Time BP 173/87 03/19/22633 Pulse 61 03/19/22633 Resp 18 03/19/22633 Temp 36.4 ?C (97.5 ?F) 03/19/22633 SpO2 98 % 03/19/22633 Facility-Administered Medications as of 03/19/2022 Medication Dose [...] March 19, 2022 TIME: 7:20 AM CSN: [id number] [facility] HISTORY PHYSICALon HISTORY PHYSICAL HNO ID: [id number] Author: Bert Ortiz MD Service: Orthopaedic Surgery [...] DATE: March 19, 2022 TIME: 7:57 AM [facility] NURSING PROGon 03-19-2022 NURSING PROG HNO ID: [id number] Author: Bebe Stone RN Service: Nursing Author [...] Pt marked by prior to nerve blolck. [facility] NURSING PROG HNO ID: [id number] Author: Bebe Stone RN Service: Nursing Author Type: Registered Nurse Type: Nursing Progress Note Filed: 03/19/2022 6:37 AM Note Text: Nursing Progress Note Patient Name: Avery Vasquez Patient Location: [place] [facility]/[place] Surgery pt ready for OR, call light in reach, called to bedside This note was completed by: Bebe Stone [facility] OPERATIVE NOon 03-19-2022 OPERATIVE NO HNO ID: [id number] Author: Bert Ortiz MD Service: Orthopaedic Surgery Author Type: Physician Type: Operative Report Filed: 03/19/2022 10:56 AM Note Text: OPERATIVE/PROCEDURE REPORT LOG ID: [id number] SURGERY/PROCEDURE DATE: 03/19/2022 INCISION/PROCEDURE START TIME: 8:33 AM INCISION CLOSE/PROCEDURE END TIME: 9:36 AM SURGEON(S)/PROCEDURALIST(S ) AND MAIL DELIVERER(S): Surgeon(s) and Role: * Bert Ortiz MD - Primary Physician Plant Maintenance Mechanic: Mi Aguila PA-C; Bailey Coyle PA-C SURGERY/PROCEDURE(S): [...] the humeral canal. (more content not included)... [facility]RACH[facility] -- AVERY VASQUEZ ([id number]) 1950 M Date Time Provider Department 03/10/22 BERT ORTIZ During your visit today, we recorded the following information about you: Katina Cardenas Med Sed 03/10/2022 10:52 AM Signed Please reach out to patient and assist with scheduling post-op physical therapy. He is having a left reverse total shoulder arthroplasty on 03-19-2022. He needs to be seen in physical therapy approximately 1 week post-op. Please call patient and assist with scheduling. Thank you. Katina Cardenas [facility] Katina Cardenas [facility] 03/12/2022 10:37 AM Signed Order for outpatient physical therapy following surgery mailed to patient per his request. Katina Cardenas [facility] Allergies As of Date: 03/10/2022 Noted Allergy Reaction BACTRIM (SULFAMETHOXAZOLE-TRIMETH* 12/16/2017 2 - Rash TRAMADOL 12/16/2017 16 - Unknown VICODIN (HYDROCODONE-ACETAMINOPHE* 12/16/2017 5 - Intolerance Date Reviewed: 03/05/2022 Reviewed by: Audrey Jacobs APRN.SUPERVISOR BILLPOSTING - Fully Assessed Reason for Visit: Appointment [...] Encounter Status:Closed by KATINA VILLANUEVA on 03/12/22 [facility] CNOVon 03-05-2022 CNOV Office Visit (ORMDRG ) -- AVERY VASQUEZ ([id number]) 1950 M Date Time Provider Department 03/05/22 9:45 AM BERT ORTIZ During your visit today, we [...] time of (more content not included)... Normal [facility] CNPNon 03-05-2022 LEXIEN Telephone (PANEWO) -- PEDROAVERY Immanuel ([id number]) 1950 M Date Time Provider Department 03/05/22 AUDREY JACOBS During your visit today, we recorded the following information about you: Audrey Jacobs APRN.CNP 03/05/2022 3:[address] Ortiz, I [...] Jacobs APRN.CNP 03/05/2022 3:52 PM Signed Katina Bishop John 4 minutes ago (3:47 PM) Marty [...] Date Reviewed: 03/05/2022 Reviewed by: Audrey Jacobs APRN.SUPERVISOR BILLPOSTING - Fully Assessed Reason for Visit: Pre-Op [...] Encounter Status:Closed by AUDREY JACOBS on 03/05/22 [facility] AVERY VASQUEZ ([id number]) 1950 M Date Time Provider Department 03/05/22 DIANA MENDEZ During your visit today, we recorded the following information about you: Bebe Bynum LPN 03/05/2022 2:46 PM Signed Sent fax to [facility] medical records requesting most recent EKG results. JONAS Vazquez LPN 03/10/2022 8:38 AM Signed Received fax from [facility] Medical records. Copy made for Diana Mendez CNP and original sent to sausage machine operator to scan. Bebe Bynum LPN Allergies As of Date: 03/05/2022 Noted Allergy Reaction BACTRIM (SULFAMETHOXAZOLE-TRIMETH* 12/16/2017 2 - Rash TRAMADOL 12/16/2017 16 - Unknown VICODIN (HYDROCODONE-ACETAMINOPHE* 12/16/2017 5 - Intolerance Date Reviewed: 03/05/2022 Reviewed by: Audrey Jacobs APRN.LEXIE - Fully Assessed Reason for Visit: Request [...] Encounter Status:Closed by BEBE BYNUM on 03/10/22 [facility] (JACKNA[facility] -- AVERY VASQUEZ ([id number]) 1950 M Date Time Provider Department 03/05/22 [...] Date Reviewed: 03/05/2022 Reviewed by: Audrey Jacobs APRN.[facility] - Fully Assessed Reason for Visit: Orders [681] Primary Visit Diagnosis: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 CONFIRM BLOOD TYPEon 022 ABO A Normal [facility] Comment on above: Order Comment: Speci men Type: BLOOD SPECIMENOrdering Facility: [facility] Address: [address] [place] [address] Performed By: #### C ONABO ####CC MAIN BLOOD BANKCLIA [id number] [address] [place] Rh Nom (Bld) Positive Normal [facility] Comment on above: Order Comment: Speci men Type: BLOOD SPECIMENOrdering Facility: [facility] Address: [address] [place] [address] Performed By: #### C ONABO ####CC MAIN BLOOD BANKCLIA [id number] [address] OF [facility] HISTORY PHYSICALon HISTORY PHYSICAL HNO ID: [id number] Author: Audrey Jacobs APRN.LEXIE Service: ? Author Type: Nurse Practitioner Type: [...] Ortiz. The shoulder has been bothersome since 2014. He has pain intermittently which varies in [...] fibrillation, CAD, chest pain, CHF, DVT/PE, recent FL and murmur/valvular heart disease. GI: No history [...] Laterality Date - ARTHROPLASTY TOTAL SHOULDER Right 2017 - BRONCHOSCOPY 2018 - FINGER SURGERY HX [...] status: Former Smoker Types: Cigars Quit date: 1980 Years since quittin.5 - Smokeless tobacco: Never [...] coated (ASPIRI (more content not included)... Normal [facility] No Panel Informationon 03-05 [facility] TYPE AND SCREEN,30 DAYon ABO A Normal [facility] Comment on above: Order Comment: Speci men Type: BLOOD SPECIMENOrdering Facility: [facility] Address: [address] [place] [address] Performed By: #### T SCR30 ####CC MAIN BLOOD BANKCLIA [id number] [address] HISTORICAL AB SCR STATUS Negative Normal [facility] Comment on above: Order Comment: Speci men Type: BLOOD SPECIMENOrdering Facility: [facility] Address: [address] [place] [address] Performed By: #### T SCR30 ####CC MAIN BLOOD BANKCLIA [id number] [address] Rh Nom (Bld) Positive Normal [facility] Comment on above: Order Comment: Speci men Type: BLOOD SPECIMENOrdering Facility: [facility] Address: [address] [place] [address] Performed By: #### T SCR30 ####CC MAIN BLOOD BANKCLIA [id number] [address] XR SHLDR >/=3V AP/TABITHA AP/OTH R LTon [...] degenerative changes in the shoulder as discussed Chief Projectionist: CARINA Transcribe Date/Time: Mar 05 2022 11:11A Dictated by : ESTRELLA KAUR DO This examination was interpreted and the report reviewed and electronically signed by: ESTRELLA KAUR DO on Mar 05 2022 11:18AM EST [id number] [facility] 02-18-2022 [facility] Telephone (ORMDNA) -- AVERY VASQUEZ ([id number]) 1950 M Date Time Provider Department 02/18/22 VICKI DUMONT During your visit today, we recorded the following information about you: Milly Garcia 02/18/2022 3:44 PM Signed Patient called asking for advice from Dr. Dumont. He stated he saw her years ago at [place], and she had told him that he would eventually need shoulder surgery. That time has come, and Avery was scheduled for surgery, but [facility] cancelled it because his A1C was at 7.6, and they refuse to do surgery if it is above 7.5. I tried to schedule him with a provider within the [facility], but all apropriate providers were too far. He is wondering if she could make any recommendations as to who he could see? It doesn't necessarily need to be [facility]; he is just concerned about it not being far away. Please advise. Milly Dueñas 02/19/2022 10:40 AM Signed If patient is willing to drive to [place], Dr. Rodriguez said she would be willing to see him since he is a previous patient. Can we please call patient and schedule an in person or virtual visit? Dr. Rodriguez is fine with either. Suzanne PIMENTEL 02/19/2022 10:50 AM Signed Patient has been scheduled Thanks Allergies As of Date: 02/18/2022 Noted Allergy Reaction BACTRIM (SULFAMETHOXAZOLE-TRIMETH* 12/16/2017 2 - Rash TRAMADOL 12/16/2017 16 - Unknown VICODIN (HYDROCODONE-ACETAMINOPHE* 12/16/2017 5 - Intolerance Date Reviewed: 12/18/2017 Reviewed by: Martha CostaRn) YESSENIA Glass - Fully Assessed Reason for Visit: Patient Question [5707] Cmt: Shoulder Surgery Prescriptions as of 02/19/2022 [...] Status:Closed by PATITO GOLDBERG on 02/19/[address] [facility] Absolute lymphocyte counton 02-15-2022 Lymphocytes Auto (Unsp spec) [#/Vol] 1.63 10*3/uL 0.83-4.51 [facility] Work Phone: Basophil percentageon 2021 Basophils/100 WBC (Bld) 0.7 % 0-1 [facility] Work Phone: Chloride [Moles/Vol] 107 mmol/L 98-107 [facility]: Eosinophils/100 WBC (Bld) 5.0 % 0-5 [facility] Work Phone: Glucose [Mass/Vol] 145 mg/dL 74-106 [facility] Work Phone: Comment on above: Fasting Glucose resu lt greater than or equal to 126 mg/dL suggests DIABETES MELLITUS per A.D.A. criteria. Neutrophils (Bld) [#/Vol] 3.1 10*3/uL 2.0-7.7 [facility] Work Phone: [phone] Neutrophils/100 WBC (Bld) 55.6 % 47-70 [facility] Work Phone: Potassium [Moles/Vol] 4.7 mmol/L 3.5-5.1 [facility] Work Phone: Sodium [Moles/Vol] 138 mmol/L 136-145 [facility] Work Phone: WBC (Bld) [#/Vol] 5.6 10*3/uL 4.4-11.0 [facility] Work Phone: [phone] Blood erythrocytes count (nu mber/volume)on 02-15-2022 RBC (Bld) [#/Vol] 4.68 10*6/uL 4.6-6.2 [facility] Work Phone: Blood hemoglobin measurement (mass/volume)on 02-15-2022 Hemoglobin (Bld) [Mass/Vol] 13.8 g/dL 13.0-16.5 [facility] Work Phone: Blood lymphocytes/100 leukoc yteson 02-15-2022 Lymphocytes/100 WBC (Bld) 29.3 % 19-41 [facility] Work Phone: Blood monocytes/100 leukocyt eson 02-15-2022 Monocytes/100 WBC (Bld) 9.0 % 0-10 [facility] Work Phone: Blood platelet mean volumeon 02-15-2022 Platelet mean volume (Bld) [Entitic vol] 9.6 fL 6.2-12.0 [facility] Work Phone: Determination of erythrocyte mean corpuscular volume (MCV)on 02-15-2022 MCV (RBC) [Entitic vol] 90.6 fL 80-94 [facility] Work Phone: Hematocrit Auto (Bld) [Volum e fraction]on 02-15-2022 Hematocrit (Bld) [Volume fraction] 42.4 % 40-54 [facility] Work Phone: Laboratory - Chemistry and C hemistry - challengeon 02-15-2022 CO2 [Moles/Vol] 28.0 mmol/L 21.0-32.0 [facility] Work Phone: Magnesium [Mass/Vol] 1.6 mg/dL 1.6-2.6 [facility] Work Phone: Urea nitrogen/Creatinine [Mass ratio] 25.7 mg/mg 10-20 [facility] Work Phone: Laboratory - Hematology and Cell countson 02-15-2022 Erythrocyte distribution width (RBC) [Entitic vol] 45.2 fL 35.1-43.9 [facility] Work Phone: Erythrocyte distribution width (RBC) [Ratio] 13.5 % 11.6-14.6 [facility] Work Phone: Immature granulocytes/100 WBC (Bld) 0.400 % 0.0-0.9 [facility] Work Phone: Comment on above: IG% - Immature Granu locytes (promyelocytes, myelocytes and metamyelocytes) > 1% indicates that a LEFT SHIFT is Present. MCH (RBC) [Entitic mass] 29.5 pg 27.0-32.0 [facility] Work Phone: Nucleated RBC/100 WBC (Bld) [Ratio] 0 % 0-5 [facility] Work Phone: MCHC Auto (RBC) [Mass/Vol]on 02-15-2022 MCHC (RBC) [Mass/Vol] 32.5 g/dL 32-36 [facility] Work Phone: No Panel Informationon 02-15 Estimated GFR (MDRD) Amer 113 mL/min >60 [facility] Work Phone: Comment on above: GFR Calc Estimated GFR (MDRD) Non-Af Amer 93 mL/min >60 [facility] Work Phone: Comment on above: Non- GFR Calc Platelets bldon 02-15-2022 Platelets (Bld) [#/Vol] 227 10*3/uL 150-450 [facility] Work Phone: Serum or plasma albumin winsome urement (mass/volume)on 02-15-2022 Albumin [Mass/Vol] 3.6 g/dL 3.2-5.0 [facility] Work Phone: Serum or plasma calcium winsome urement (mass/volume)on 02-15-2022 Calcium [Mass/Vol] 9.7 mg/dL 8.5-10.1 [facility] Work Phone: Serum or plasma creatinine m easurement (mass/volume)on 02-15-2022 Creatinine [Mass/Vol] 0.86 mg/dL 0.70-1.30 [facility] Work Phone: Comment on above: The validity of the calculated GFR & GFRAA in patients over 70 years has not been determined. Clinical correlation is essential. Serum or plasma urea nitroge n measurement (mass/volume)on 02-15-2022 Urea nitrogen [Mass/Vol] 22 mg/dL 7-18 [facility] Work Phone: Thin prep Papanicolaou smear with manual screeningon 02-15-2022 Thin prep Papanicolaou smear with manual screening 3 5-15 [facility] Work Phone: Whole blood hemoglobin A1c/t otal hemoglobin ratio (mass fraction)on 02-15-2022 HbA1c (Bld) [Mass fraction] 7.6 % 3.8-5.6 [facility] Work Phone: Comment on above: Normal < 5.7 % Predi abetic 5.7 - 6.4 % Diabetic >or= 6.5 % Please note range changes. .Auto Diffon 08-16-2018 Ammonia mass conc (P) 0.90 10 3/mcL Normal 0.15-1.00 [facility] ([place]) Comment on above: Performed By: #### C PATRICIA FLEMING, ANEU #### [place] [address] #### BMP, GFR #### [address] [address] Basophils #/vol (Bld) 0.00 10 3/mcL Normal 0.00-0.19 [facility] ([place]) Comment on above: Performed By: #### C PATRICIA FLEMING, ANEU #### [place] [address] #### BMP, GFR #### [address] [address] Basophils/100 WBC (Bld) 0.4 % Normal 0.0-2.5 [facility] ([place]) Comment on above: Performed By: #### C PATRICIA FLEMING, ANEU #### [place] [address] #### BMP, GFR #### [address] [address] Eosinophils #/vol (Bld) 0.20 10 3/mcL Normal 0.00-0.40 [facility] ([place]) Comment on above: Performed By: #### C PATRICIA FLEMING, ANEU #### [place] [address] #### BMP, GFR #### [address] [address] Eosinophils/100 WBC (Bld) 1.5 % Normal 0.0-7.0 [facility] ([place]) Comment on above: Performed By: #### C BC, ADIFF, ANEU #### [address] [address] #### BMP, GFR #### [address] [address] Lymphocytes #/vol (Bld) 0.80 10 3/mcL Normal 0.77-3.85 [facility] ([place]) Comment on above: Performed By: #### C BC, ADIFF, ANEU #### Rui [address] [address] #### BMP, GFR #### [address] [address] Lymphocytes/100 WBC (Bld) 7.5 % Low 10.0-50.0 [facility] ([place] Comment on above: Performed By: #### C BC, ADIFF, ANEU #### [address] [address] #### BMP, GFR #### [address] [address] Monocytes/100 WBC (Bld) 9.1 % Normal 1.7-13.0 [facility] ([place] Comment on above: Performed By: #### C BC, ADIFF, ANEU #### [address] [address] #### BMP, GFR #### [address] [address] Neutrophils/100 WBC (Bld) 81.5 % High 37.0-80.0 [facility] ([place] Comment on above: Performed By: #### C BC, ADIFF, ANEU #### [address] [address] #### BMP, GFR #### [address] [address] .GFRon 08-16-2018 GFR 88 ml/min/1.73sqm Normal [facility] ([place] Comment on above: Result Comment: GFR Population [...] By: #### C BC, ADIFF, ANEU #### [address] [address] #### BMP, GFR, A1C #### [address] [address] GFR Non- 73 ml/min/1.73sqm Normal [facility] ([place] Comment on above: Result Comment: GFR Population [...] By: #### C BC, ADIFF, ANEU #### [address] [address] #### BMP, GFR, A1C #### [address] [address] .NEUABSon 08-16-2018 Neutrophils #/vol (Bld) 8.40 10 3/mcL High 2.85-6.16 [facility] ([place] Comment on above: Performed By: #### C BC, ADIFF, ANEU #### [address] [address] #### BMP, GFR #### [address] [address] BMPon 08-16-2018 Calcium mass conc 9.1 mg/dL Normal 8.4-10.2 [facility] ([place] Comment on above: Performed By: #### C BC, ADIFF, ANEU #### [address] [address] #### BMP, GFR, A1C #### [address] [address] Chloride molar conc 102 mmol/L Normal 98-107 [facility] ([place]) Comment on above: Performed By: #### C BC, ADIFF, ANEU #### [place] [address] #### BMP, GFR, A1C #### [place] [address] CO2 molar conc 27 mmol/L Normal 23-31 [facility] ([place] Comment on above: Performed By: #### C BC, ADIFF, ANEU #### [address] [address] #### BMP, GFR, A1C #### [place] [address] Creatinine mass conc 1.02 mg/dL Normal 0.70-1.30 [facility] ([place]) Comment on above: Performed By: #### C BC, ADIFF, ANEU #### [place] [address] #### BMP, GFR, A1C #### [address] [address] Electrolyte Balance 8.0 mEq/L Normal [facility] ([place] Comment on above: Performed By: #### C BC, ADIFF, ANEU #### [place] [address] #### BMP, GFR, A1C #### [place] [address] Glucose mass conc 146 mg/dL High 80-115 [facility] ([place] Comment on above: Performed By: #### C BC, ADIFF, ANEU #### [address] [address] #### BMP, GFR, A1C #### [address] [address] Potassium molar conc 4.6 mmol/L Normal 3.5-5.1 [facility] ([place]) Comment on above: Performed By: #### C BC, ADIFF, ANEU #### [address] [address] #### BMP, GFR, A1C #### [address] [address] Sodium molar conc 137 mmol/L Normal 136-145 [facility] ([place] Comment on above: Performed By: #### C BC, ADIFF, ANEU #### [address] [address] #### BMP, GFR, A1C #### [address] [address] Urea nitrogen mass conc 24 mg/dL High 7-18 [facility] ([place] Comment on above: Performed By: #### C BC, ADIFF, ANEU #### [address] [address] #### BMP, GFR, A1C #### [address] [address] Urea nitrogen/Creatinine mass ratio 24 ratio Normal 7-27 [facility] ([place]) Comment on above: Performed By: #### C BC, ADIFF, ANEU #### [address] [address] #### BMP, GFR, A1C #### [address] [address] CBCon 08-16-2018 Erythrocyte distribution width Ratio (RBC) 14.5 % Normal 11.5-14.5 [facility] ([place] Comment on above: Performed By: #### C BC, ADIFF, ANEU #### [address] [address] #### BMP, GFR #### [place] [address] Hematocrit Volume Fraction (Bld) 38.4 % Low 42.0-52.0 [facility] ([place] Comment on above: Performed By: #### C BC, ADIFF, ANEU #### [address] [address] #### BMP, GFR #### [place] [address] Hemoglobin mass conc (Bld) 12.6 G/dL Low 14.0-18.0 [facility] ([place]) Comment on above: Performed By: #### C BC, ADIFF, ANEU #### [address] [address] #### BMP, GFR #### [place] [address] MCH Entitic mass (RBC) 28.1 pg Normal 27.0-31.2 [facility] ([place]) Comment on above: Performed By: #### C BC, ADIFF, ANEU #### [address] [address] #### BMP, GFR #### [place] [address] MCHC mass conc (RBC) 32.9 G/dL Normal 31.8-35.4 [facility] ([place]) Comment on above: Performed By: #### C BC, ADIFF, ANEU #### [address] [address] #### BMP, GFR #### [address] [address] MCV Entitic volume (RBC) 85.3 fL Normal 80.0-94.0 [facility] ([place]) Comment on above: Performed By: #### C BC, ADIFF, ANEU #### [address] [address] #### BMP, GFR #### [place] [address] Platelet mean volume Entitic volume (Bld) 8.2 fL Normal 7.4-10.4 [facility] ([place] Comment on above: Performed By: #### C BC, ADIFF, ANEU #### [place] [address] #### BMP, GFR #### [address] [address] Platelets #/vol (Bld) 222 10 3/mcL Normal 130-400 [facility] ([place] Comment on above: Performed By: #### C BC, ADIFF, ANEU #### [place] [address] #### BMP, GFR #### [place] [address] RBC #/vol (Bld) 4.50 10 6/mcL Normal 4.04-6.13 [facility] ([place]) Comment on above: Performed By: #### C BC, ADIFF, ANEU #### [place] [address] #### BMP, GFR #### [place] [address] WBC #/vol (Bld) 10.30 10 3/mcL Normal 4.60-10.80 [facility] ([place]) Comment on above: Performed By: #### C BC, ADIFF, ANEU #### [place] [address] #### BMP, GFR #### [place] [address] XR SHOULDER MINIMUM 2 VIEWS RIGHTon 08-15-2018 [...] AM Sign Date: 08/15/2018 11:16:58 AM Normal [facility] ([place] .Auto Diffon 08-07-2018 Ammonia mass conc (P) 0.50 10 3/mcL Normal 0.15-1.00 [facility] ([place] Comment on above: Performed By: #### C BC, ADIFF, ANEU #### [place] [address] #### BMP, GFR, A1C #### [address] [address] Basophils #/vol (Bld) 0.00 10 3/mcL Normal 0.00-0.19 [facility] ([place] Comment on above: Performed By: #### C BC, ADIFF, ANEU #### [place] [address] #### BMP, GFR, A1C #### [address] [address] Basophils/100 WBC (Bld) 0.5 % Normal 0.0-2.5 [facility] ([place] Comment on above: Performed By: #### C BC, ADIFF, ANEU #### [place] [address] #### BMP, GFR, A1C #### [address] [address] Eosinophils #/vol (Bld) 0.20 10 3/mcL Normal 0.00-0.40 [facility] ([place]) Comment on above: Performed By: #### C BC, ADIFF, ANEU #### [place] [address] #### BMP, GFR, A1C #### [address] [address] Eosinophils/100 WBC (Bld) 3.3 % Normal 0.0-7.0 [facility] ([place] Comment on above: Performed By: #### C BC, ADIFF, ANEU #### [place] [address] #### BMP, GFR, A1C #### [address] [address] Lymphocytes #/vol (Bld) 1.10 10 3/mcL Normal 0.77-3.85 [facility] ([place]) Comment on above: Performed By: #### C BC, ADIFF, ANEU #### [address] [address] #### BMP, GFR, A1C #### [address] [address] Lymphocytes/100 WBC (Bld) 16.7 % Normal 10.0-50.0 [facility] ([place]) Comment on above: Performed By: #### C BC, ADIFF, ANEU #### [address] [address] #### BMP, GFR, A1C #### [address] [address] Monocytes/100 WBC (Bld) 7.7 % Normal 1.7-13.0 [facility] ([place]) Comment on above: Performed By: #### C BC, ADIFF, ANEU #### [address] [address] #### BMP, GFR, A1C #### [address] [address] Neutrophils/100 WBC (Bld) 71.8 % Normal 37.0-80.0 [facility] ([place]) Comment on above: Performed By: #### C BC, ADIFF, ANEU #### [address] [address] #### BMP, GFR, A1C #### [address] [address] .GFRon 08-07-2018 GFR Non- 83 ml/min/1.73sqm Normal [facility] ([place]) Comment on above: Result Comment: GFR Population [...] By: #### C BC, ADIFF, ANEU #### [address] [address] #### BMP, GFR, A1C #### [address] [address] GFR 100 ml/min/1.73sqm Normal [facility] ([place] Comment on above: Result Comment: GFR Population [...] By: #### C BC, ADIFF, ANEU #### [address] [address] #### BMP, GFR, A1C #### [address] [address] .NEUABSon 08-07-2018 Neutrophils #/vol (Bld) 4.70 10 3/mcL Normal 2.85-6.16 [facility] ([place] Comment on above: Performed By: #### C BC, ADIFF, ANEU #### [address] [address] #### BMP, GFR, A1C #### [address] [address] A1Con 08-07-2018 Hemoglobin A1c/Hemoglobin.total mass fraction (Bld) 7.5 % High 4.5-6.2 [facility] ([place]) Comment on above: Performed By: #### C BC, ADIFF, ANEU #### [address] [address] #### BMP, GFR, A1C #### [address] [address] BMPon 08-07-2018 Calcium mass conc 9.4 mg/dL Normal 8.4-10.2 [facility] ([place]) Comment on above: Performed By: #### C BC, ADIFF, ANEU #### [address] [address] #### BMP, GFR, A1C #### [address] [address] Chloride molar conc 103 mmol/L Normal 98-107 [facility] ([place]) Comment on above: Performed By: #### C BC, ADIFF, ANEU #### [place] [address] #### BMP, GFR, A1C #### [address] [address] CO2 molar conc 25 mmol/L Normal 23-31 [facility] ([place] Comment on above: Performed By: #### C BC, ADIFF, ANEU #### [address] [address] #### BMP, GFR, A1C #### [address] [address] Creatinine mass conc 0.91 mg/dL Normal 0.70-1.30 [facility] ([place]) Comment on above: Performed By: #### C BC, ADIFF, ANEU #### [address] [address] #### BMP, GFR, A1C #### [address] [address] Electrolyte Balance 9.0 mEq/L Normal [facility] ([place]) Comment on above: Performed By: #### C BC, ADIFF, ANEU #### [address] [address] #### BMP, GFR, A1C #### [address] [address] Glucose mass conc 154 mg/dL High 80-115 [facility] ([place]) Comment on above: Performed By: #### C BC, ADIFF, ANEU #### [address] [address] #### BMP, GFR, A1C #### [address] [address] Potassium molar conc 4.4 mmol/L Normal 3.5-5.1 [facility] ([place]) Comment on above: Performed By: #### C BC, ADIFF, ANEU #### [address] [address] #### BMP, GFR, A1C #### [address] [address] Sodium molar conc 137 mmol/L Normal 136-145 [facility] ([place]) Comment on above: Performed By: #### C BC, ADIFF, ANEU #### [address] [address] #### BMP, GFR, A1C #### [address] [address] Urea nitrogen mass conc 22 mg/dL High 7-18 [facility] ([place]) Comment on above: Performed By: #### C BC, ADIFF, ANEU #### [address] [address] #### BMP, GFR, A1C #### [address] [address] Urea nitrogen/Creatinine mass ratio 24 ratio Normal 7-27 [facility] ([place] Comment on above: Performed By: #### C BC, ADIFF, ANEU #### [address] [address] #### BMP, GFR, A1C #### [address] [address] CBCon 08-07-2018 Erythrocyte distribution width Ratio (RBC) 14.6 % High 11.5-14.5 [facility] ([place] Comment on above: Performed By: #### C BC, ADIFF, ANEU #### [address] [address] #### BMP, GFR, A1C #### [address] [address] Hematocrit Volume Fraction (Bld) 41.6 % Low 42.0-52.0 [facility] ([place] Comment on above: Performed By: #### C BC, ADIFF, ANEU #### [address] [address] #### BMP, GFR, A1C #### [place] [address] Hemoglobin mass conc (Bld) 13.5 G/dL Low 14.0-18.0 [facility] ([place] Comment on above: Performed By: #### C BC ADIFF, ANEU #### [place] [address] #### BMP, GFR, A1C #### [place] [address] MCH Entitic mass (RBC) 27.8 pg Normal 27.0-31.2 [facility] ([place] Comment on above: Performed By: #### C BC, ADIFF, ANEU #### [place] [address] #### BMP, GFR, A1C #### [place] [address] MCHC mass conc (RBC) 32.4 G/dL Normal 31.8-35.4 [facility] ([place] Comment on above: Performed By: #### C BC, ADIFF, ANEU #### [place] [address] #### BMP, GFR, A1C #### [place] [address] MCV Entitic volume (RBC) 85.6 fL Normal 80.0-94.0 [facility] ([place] Comment on above: Performed By: #### C BC, ADIFF, ANEU #### [place] [address] #### BMP, GFR, A1C #### [place] [address] Platelet mean volume Entitic volume (Bld) 8.6 fL Normal 7.4-10.4 [facility] ([place] Comment on above: Performed By: #### C BC, ADIFF, ANEU #### [place] [address] #### BMP, GFR, A1C #### [place] [address] Platelets #/vol (Bld) 237 10 3/mcL Normal 130-400 [facility] ([place]) Comment on above: Performed By: #### C BC, ADIFF, ANEU #### [place] [address] #### BMP, GFR, A1C #### [place] [address] RBC #/vol (Bld) 4.86 10 6/mcL Normal 4.04-6.13 [facility] ([place] Comment on above: Performed By: #### C BC, ADIFF, ANEU #### [place] [address] #### BMP, GFR, A1C #### [place] [address] WBC #/vol (Bld) 6.60 10 3/mcL Normal 4.60-10.80 [facility] ([place] Comment on above: Performed By: #### C BC, ADIFF, ANEU #### [place] [address] #### BMP, GFR, A1C #### [place] [address] ANES Janette 12-18-2017 ANES POST HNO ID: [id number] thor: Serge Haileice: AnesthesiologyAuthor Type: PhysicianType: Anesthesia PostOpFiled: 12/18/2017 10:15 AMNote Text:POST ANESTHESIA EVALUATION NOTESERVICE DATE: 12/18/2017SERVICE TIME: 10:14 AMDOB: 1950Vitals: 12/19/1807Temp: 36.2 ?C (97.2 ?F) 36.3 ?C (97.3 ?F) 36 ?C (96.8 ?F) 36.5 ?C (97.7?F) 12/18/1808BP: 134/77 131/81 127/71 125/81 12/18/1808Pulse: 68 64 63 (!) 59 12/18/1808Resp: 18 18 15 16 12/18/1808SpO2: 94% 99% 99% 97%Validated Vital Signs: [...] 18, 2017 : 10:14 AM PAGER/CONTACT #: [facility] ANES PREOPon 12-18-2017 ANES PREOP HNO ID: [id number] thor: Serge Hawkinservice: AnesthesiologyAuthor Type: PhysicianType: Anesthesia [...] 12/18/2017Potassium 3.6 12/18/2017ANES DOS/PREOP NOTE:Vitals: [phone]: 117/61 122/73 144/69Pulse: 72 62 62Resp: 18 [...] ringers infusion 125 mL/hr INTRAVENOUS (PACU) ARIA GANDHIirkfentaNYL 50 mcg/mL 50 mcg injection (SUBLIMAZE) 50 mcg INTRAVENOUS (PACU)PRN Serge Paulino KirkHYDROmorphone 0.5 mg injection (DILAUDID) 0.5 mg INTRAVENOUS (PACU) PRNSerge SpannkoxyCODONE IR 5 mg tab(s) (ROXICODONE) 5 mg ORAL (PACU) PRN Serge Paulino Kirkondansetron (PF) 4 mg injection (ZOFRAN) 4 mg INTRAVENOUS (PACU) PRNSerge Spannkprochlorperazine 10 mg injection (COMPAZINE) 10 mg INTRAVENOUS (PACU) PRNJoseph M Kirkmeperidine (PF) 12.5 mg injection (DEMEROL) 12.5 mg INTRAVENOUS (PACU) PRSarah York[MAR Hold due to Transfer] acetaminophen 975 mg tab(s) (TYLENOL) 975 mgORAL q 6 H [facility] 975 mg at 12/17/17 2359[MAR Hold due to Transfer] ketorolac 15 mg injection (TORADOL) 15 mgINTRAVENOUS q 6 H [facility] 15 mg at 12/18/17 0549[MAR Hold due to Transfer] gabapentin 300 mg cap(s) (NEURONTIN) 300 mgORAL q 8 H [facility] 300 mg at 12/17/17 2135[MAR Hold due to Transfer] oxyCODONE IR 5-10 mg tab(s) (ROXICODONE) 5-10mg ORAL q 4 H PRN [facility][MAR Hold due to Transfer] morphine 4 mg injection 4 mg INTRAVENOUS q 2 HPRN [facility][MAR Hold due to Transfer] dextrose 5% in LR infusion (D5-LR) 125 mL/hrINTRAVENOUS CONTINUOUS Cindy (Res) Robert Last Rate: 125 mL/hr at12/17/178 125 mL/hr at 12/17/172357[MAR Hold due to Transfer] iv contrast (radiology procedure) INTRAVENOUSAS DIRECTED PRGrupo Lawrence (ResJonh Negron MD[MAR Hold due to Transfer] iv contrast (radiology procedure) INTRAVENOUSAS DIRECTED PRGrupo Ortiz[MAR Hold due to Transfer] atorvastatin 10 mg tab(s) (LIPITOR) 10 mg ORALDAILY Stephanie Ortiz 10 mg at 12/17/17 1148[MAR Hold due to Transfer] lisinopril 10 mg tab(s) (ZESTRIL, PRINIVIL) 10mg ORAL DAILY Stephanie Ortiz 10 mg at 12/17/17 1148[MAR Hold due to Transfer] aspirin, enteric coated 81 mg tab(s) (ASPIRIN,ENTERIC COATED) 81 mg ORAL DAILY Stephanie Ortiz 81 mg at 148[MAR Hold due to Transfer] docusate sodium 100 mg cap(s) (COLACE) 100 mgORAL BID Stephanie (Leisa) Angel 100 mg at 12/17/172134[MAR Hold due to Transfer] dextrose 40 % 15 g 15 g ORAL PRN Stephanie (Res)Valentina[MAR Hold due to Transfer] glucagon 1 mg injection (GLUCAGEN) 1 mgINTRAMUSCULAR PRN Stephanie (Res) Valentina[MAR Hold due to Transfer] dextrose 50% in water 25 mL syringe 12.5 gINTRAVENOUS PRN Stephanie (Res) Angel[MAR Hold due to Transfer] insulin lispro pen (rapid acting) (HumaLOGKWIKPEN) SUBCUTANEOUS q 6 H Stephanie (Leisa) Angel 3 Units at [MAR Hold due to Transfer] enoxaparin 30 mg injection (LOVENOX) 30 mgSUBCUTANEOUS q 12 HR Stephanie (Leisa) Angel 30 mg at 12/17/175Allergies:ALLERGIESAll ergen Reactions- Bactrim [...] URE: Serge York MD PATIENT NAME: Avery VasquezDATE: December 18, 2017 : 7:46 AM CSN: [id number] Normal [facility] Basic Panelon 12-18-2017 Creatinine 0.83 mg/dL Normal 0.67-1.17 [facility] Comment on above: Performed By: #### P T ####[facility] [place] [address] Anion gap 10 mmol/L Normal 8-16 [facility] Comment on above: Performed By: #### P T ####[address] [address] CO2 26 mmol/L Normal 21-32 [facility] Comment on above: Performed By: #### P T ####[address] [address] Glucose mass conc 176 mg/dL High 70-99 [facility] Comment on above: Performed By: #### P T ####[place] [address] Urea nitrogen 18 mg/dL Normal 7-18 [facility] Comment on above: Performed By: #### P T ####[address] [address] Calcium 8.3 mg/dL Low 8.5-10.1 [facility] Comment on above: Performed By: #### P T ####[address] [address] Chloride 105 mmol/L Normal 98-107 [facility] Comment on above: Performed By: #### P T ####[address] [address] Potassium molar conc 3.6 mmol/L Normal 3.5-5.1 [facility] Comment on above: Performed By: #### P T ####[place] [address] Sodium 137 mmol/L Normal 136-145 [facility] Comment on above: Performed By: #### P T ####[place] [address] CHEST 1 VIEWon 12-18-2017 CHEST 1 VIEW Performed at [facility] APPROVED BY: Rangel Duran MD Exam: Portable view of the chest dated 12/18/2017 08:51. Indication: Pneumomediastinum. Comparison: 12/17/2017. Findings:Subcutaneous emphysema redemonstrated within the neck. The lungs are grossly clear. The pneumomediastinum is much less apparent by radiograph. There is no evidence of pneumothorax or pleural effusion. The cardiomediastinal silhouette is within normal limits. IMPRESSION: Resolving pneumomediastinum with persistent subcutaneous emphysema. Normal [facility] CNDSon 12-18-2017 CNDS HNO ID: [id number] thor: Pola (Res) Ashleyervice: General SurgeryAuthor Type: ResidentType: Discharge SummariesFiled: 12/18/2017 [...] 3,5,6)SIGNATURE: Pola Villareal MD PATIENT NAME: Avery BarfieldTE: December 18, 2017 : 12:57 PM PAGER: [phone] Normal [facility] Glucose Meteron 12-18-2017 Glucose mass conc 149 mg/dL High 70-99 [facility] Comment on above: Result Comment: YESSENIA Lombardo OTIFIED Performed By: #### P 8 ####[place] [address] Glucose mass conc 165 mg/dL High 70-99 [facility] Comment on above: Result Comment: YESSENIA Lombardo OTIFIED Performed By: #### P 8 ####[place] [address] Glucose mass conc 162 mg/dL High 70- [facility] Comment on above: Performed By: #### P T ####[place] [address] Hemogramon 12-18-2017 Erythrocyte distribution width Auto Ratio (RBC) 15.7 % High 11.6-14.4 [facility] Comment on above: Performed By: #### P T ####[place] [address] Erythrocytes (RBC) 3.73 mil/cmm Low 4.63-6.08 [facility] Comment on above: Performed By: #### P T ####[place] [address] Hematocrit (HCT) 32.4 % Low 40.1-51.0 [facility] Comment on above: Performed By: #### P T ####[place] [address] Hemoglobin mass conc (Bld) 10.4 g/dL Low 13.7-17.5 [facility] Comment on above: Performed By: #### P T ####[place] [address] MCH 27.9 pg Normal 25.7-32.2 [facility] Comment on above: Performed By: #### P T ####[place] [address] MCHC mass conc (RBC) 32.1 % Low 32.3-36.5 [facility] Comment on above: Performed By: #### P T ####[facility] [place], [place] [address] MCV 86.9 fL Normal 83.2-95.6 [facility] Comment on above: Performed By: #### P T ####[address] [address] Platelet mean volume (PMV) 9.8 fL Normal 8.7-12.0 [facility] Comment on above: Performed By: #### P T ####[address] [address] Platelets 219 thou/cmm Normal 141-365 [facility] Comment on above: Performed By: #### P T ####[address] [address] RDW SD 49.9 fl High 36.1-45.8 [facility] Comment on above: Performed By: #### P T ####[address] [address] WBC (Leukocytes) 6.15 thou/cmm Normal 4.23-9.07 [facility] Comment on above: Performed By: #### P T ####[address] [address] MDRD GFRon 12-18-2017 eGFR (non-black) mL/min/{1.73_m2} Normal >60mL/m in/ 1.73m2 [facility] Comment on above: Result Comment: If t he patient is , multiply the result by 1.210. Performed By: #### P T ####[address] [address] NURSING PROGon 12-18-2017 NURSING PROG HNO ID: [id number] Author: Martha (Rn) YESSENIA Glass Service: Nursing Author Type: Registered Nurse Type: Nursing Progress Note Filed: 12/18/2017 9:03 AM Note Text: CXR done at bedside Normal [facility] OPERATIVE NOon 12-18-2017 OPERATIVE NO HNO ID: [id number] thor: Adolfo Knight Jose RamontService: General SurgeryAuthor Type: PhysicianType: Operative ReportFiled: 12/18/2017 9:13 AMNote Text:OPERATIVE REPORTLOG ID: [id number]/Procedure Date: 12/18/2017Incision/Procedur e Start Time: 8:21 AMIncision Close/Procedure End Time: 8:32 AMSurgeon(s)/Proceduralist (s) and Plant Maintenance Mechanic(s):Surgeon(s) and Role: * Adolfo Albrightatilio - PrimaryProcedure(s): diagnostic flexible bronchoscopyAnesthesia: GeneralFindings: no [...] patient, family and/or the patient'smedical power of family law attorney. The risks discussed include but are [...] was ordered for the recovery area.Adolfo Zayas, [facility]ITALepartment of General SurgerySection of Trauma, Surgical Critical Care, and Acute Care Surgery [facility] PROGRESSon 12-18-2017 PROGRESS HNO ID: [id number] thor: Cindy (Res) ChristiansenService: General SurgeryAuthor Type: ResidentType: Progress NotesFiled: 12/18/2017 [...] 97% BMI 37.71 kg/m2O2 Therapy: Room AirIANDO:Date 12/17/176[address] - 12/18/1759 12/18/[address] - 12/19/17 0659Shift 4646-0259 7432-9286 9000-4441 24 Hour Total 1100-6165 5865-84200534-4600 24 Hour TotalINTAKE PO 559 469 8262 PO 456 127 3978 IV 4639 711 9876 D5 LR 530 530 LR 1000 1000 [...] Note: Added automatically from request for surgery [id number]- Pneumomediastinum (HCC) 12/16/201767 year old male attacked by cow x2, most recently thrown against gate andcharged several times. No LOC. Right 3,5,6 rib fractures,pneumomediastinu m, subcutaneous air in neck.- NPO for bronchoscopy today- IS- NPCS c/s pending- stable on RA- tele- pulm consultAbigail MD RobertGeneral Surgery, PGY-1April 2017 6:01 AMPager: [phone] Normal [facility] Basic Panelon 12-17-2017 Creatinine 0.67 mg/dL Normal 0.67-1.17 [facility] Comment on above: Performed By: #### P T ####[place] [address] Anion gap 12 mmol/L Normal 8-16 [facility] Comment on above: Performed By: #### P T ####[place] [address] CO2 25 mmol/L Normal 21-32 [facility] Comment on above: Performed By: #### P T ####[facility] [place] [address] Calcium 9.2 mg/dL Normal 8.5-10.1 [facility] Comment on above: Performed By: #### P T ####[place] [address] Urea nitrogen 12 mg/dL Normal 7-18 [facility] Comment on above: Performed By: #### P T ####[facility] [place] [address] Glucose mass conc 119 mg/dL High 70-99 [facility] Comment on above: Performed By: #### P T ####[facility] [place] [address] Chloride 106 mmol/L Normal 98-107 [facility] Comment on above: Performed By: #### P T ####[facility] [place] [address] Potassium molar conc 4.1 mmol/L Normal 3.5-5.1 [facility] Comment on above: Performed By: #### P T ####[facility] [place] [address] Sodium 139 mmol/L Normal 136-145 [facility] Comment on above: Performed By: #### P T ####[place] [address] CHEST 1 VIEWon 12-17-2017 CHEST 1 VIEW Performed at [facility] APPROVED BY: Rangel Duran MD Exam: Portable [...] IMPRESSION: Persistent pneumomediastinum and subcutaneous emphysema. Normal [facility] CONSULTon 12-17-2017 CONSULT HNO ID: [id number] thor: Hood Savage: Pulmonary DiseaseAuthor Type: PhysicianType: [...] contrast (radiology procedure) INTRAVENOUS DIRECTED PRN Melinda Ellis MDiv contrast (radiology procedure) INTRAVENOUS DIRECTED PRN Lupe Ortizatorvastatin 10 mg tab(s) (LIPITOR) 10 mg ORAL DAILY Stephanie Salvadorwski10 mg at 12/17/17 1148lisinopril 10 mg tab(s) [...] injection (GLUCAGEN) 1 mg INTRAMUSCULAR PRN Stephanie MachadoOrdextrose 50% in water 25 mL syringe 12.5 g INTRAVENOUS PRN Stephanie Day)Angellactated ringers infusion 125 mL/hr INTRAVENOUS CONTINUOUS Stephanie Machado Last Rate: 125 mL/hr at 12/17/17 0523 125 mL/hr at 12/17/17 0523insulin lispro pen (rapid acting) (HumaLOG KWIKPEN) SUBCUTANEOUS q 6 HAndbeth Ortiz 1 Units at 12/17/17 1211enoxaparin 30 mg injection (LOVENOX) 30 mg SUBCUTANEOUS q 12 HR Lupe Ortiz 30 mg at 12/17/17 1149?LABSABG:Invalid input(s): [id number]:Glucose (mg/dL)Date Value12/17/2017 119 Potassium (mEq/L)Date Value12/17/2017 4.1 [...] kg (248 lb) SpO2 98% BMI 37.71 kg/k5CUUJYHRH EXAM:GENERAL: AAOx3, pleasant, resting in bed side [...] edema.GI: Soft, nondistended, nontender, bowel sounds present q1OARFLMMQJAV: no clubbing or cyanosis. DVOg0RDSX: warm, dry, intact, no rash or bruising [...] NAME:Avery BarfieldTE:December 17, 2017 :1:21 PM PAGER/CONTACT #:[phone]? Normal [facility] Glucose Meteron 12-17-2017 Glucose mass conc 172 mg/dL High 70-99 [facility] Comment on above: Performed By: #### P T ####[place] [address] Glucose mass conc 122 mg/dL High 70-99 [facility] Comment on above: Result Comment: YESSENIA Lombardo OTIFIED Performed By: #### P T ####[place] [address] Glucose mass conc 152 mg/dL High 70-99 [facility] Comment on above: Result Comment: YESSENIA Lombardo OTIFIED Performed By: #### P T ####[place] [address] Glucose mass conc 134 mg/dL High 70-99 [facility] Comment on above: Result Comment: YESSENIA Lombardo OTIFIED Performed By: #### G LMET ####[place] [address] Hemogramon 12-17-2017 Erythrocyte distribution width Auto Ratio (RBC) 15.9 % High 11.6-14.4 [facility] Comment on above: Performed By: #### C BC1 ####[place] [address] Erythrocytes (RBC) 4.33 mil/cmm Low 4.63-6.08 [facility] Comment on above: Performed By: #### C BC1 ####[place] [address] Hematocrit (HCT) 38.0 % Low 40.1-51.0 [facility] Comment on above: Performed By: #### C BC1 ####[place] [address] Hemoglobin mass conc (Bld) 11.9 g/dL Low 13.7-17.5 [facility] Comment on above: Performed By: #### C BC1 ####[place] [address] MCH 27.5 pg Normal 25.7-32.2 [facility] Comment on above: Performed By: #### C BC1 ####[place] [address] MCHC mass conc (RBC) 31.3 % Low 32.3-36.5 [facility] Comment on above: Performed By: #### C BC1 ####[place] [address] MCV 87.8 fL Normal 83.2-95.6 [facility] Comment on above: Performed By: #### C BC1 ####[place] [address] Platelet mean volume (PMV) 10.3 fL Normal 8.7-12.0 [facility] Comment on above: Performed By: #### C BC1 ####[place] [address] Platelets 246 thou/cmm Normal 141-365 [facility] Comment on above: Performed By: #### C BC1 ####[address], [place] [address] RDW SD 50.5 fl High 36.1-45.8 [facility] Comment on above: Performed By: #### C BC1 ####[facility] [place], [place] [address] WBC (Leukocytes) 8.80 thou/cmm Normal 4.23-9.07 [facility] Comment on above: Performed By: #### C BC1 ####[facility] [place], [place] [address] MDRD GFRon 12-17-2017 eGFR (non-black) mL/min/{1.73_m2} Normal >60mL/m in/ 1.73m2 [facility] Comment on above: Result Comment: If t he patient is , multiply the result by 1.210. Performed By: #### P T ####[address] [address] PROGRESSon 12-17-2017 PROGRESS HNO ID: [id number] thor: Adolfo Silvaervice: General SurgeryAuthor Type: PhysicianType: Progress NotesFiled: 12/17/2017 [...] 96% BMI 37.71 kg/m2O2 Therapy: Room AirIANDO:Date 12/16/17699 - 12/17/17 0659 12/17/[address] - 12/18/17 0659Shift 7799-8795 9882-7303 9459-5027 24 Hour Total 9604-3731 1575-96752456-2018 24 Hour TotalINTAKE IV 1000 1000 LR [...] December 17, 2017 : 7:13 AM Pager: [phone] NoteI evaluated the patient and personally participated [...] Spann.D/C tele and continuous pulse ox.Adolfo Zayas, [facility]ITALepartment of General SurgerySection of Trauma, Surgery Critical Care, and Acute Care Surgery Normal [facility] Basic Panelon 12-16-2017 Creatinine 0.73 mg/dL Normal 0.67-1.17 [facility] Comment on above: Performed By: #### P 8 ####[facility] [place], [place] [address] Urea nitrogen 11 mg/dL Normal 7-18 [facility] Comment on above: Performed By: #### P 8 ####[facility] [place], [place] [address] Anion gap 10 mmol/L Normal 8-16 [facility] Comment on above: Performed By: #### P 8 ####[facility] [place], [place] [address] Calcium 8.8 mg/dL Normal 8.5-10.1 [facility] Comment on above: Performed By: #### P 8 ####[facility] [place], [place] [address] CO2 27 mmol/L Normal 21-32 [facility] Comment on above: Performed By: #### P 8 ####[facility] [place], [place] [address] Glucose mass conc 112 mg/dL High 70-99 [facility] Comment on above: Performed By: #### P 8 ####[facility] [place], [place] [address] Chloride 108 mmol/L High 98-107 [facility] Comment on above: Performed By: #### P 8 ####[facility] [place], [place] [address] Potassium molar conc 3.7 mmol/L Normal 3.5-5.1 [facility] Comment on above: Performed By: #### P 8 ####[facility] [place], [place] [address] Sodium 141 mmol/L Normal 136-145 [facility] Comment on above: Performed By: #### P 8 ####[facility] [place], [place] [address] CT ABDOMEN AND PELVIS WITH C ONTRASTon 12-16-2017 CT ABDOMEN AND PELVIS WITH CONTRAST Performed at [facility] APPROVED BY: Douglas Rod MD Exam [...] process involving the abdomen or pelvis. Normal [facility] CT CERVICAL SPINE W/O CONTRA STon 12-16-2017 CT CERVICAL SPINE W/O CONTRAST Performed at [facility] APPROVED BY: Theo Wells MD EXAMINATION: [...] at the level of the neck Normal [facility] CT CHEST WITH CONTRASTon CT CHEST WITH CONTRAST Performed at [facility] APPROVED BY: Douglas Rod MD EXAMINATION: CHEST [...] the neck. There is also pneumomediastinum. Normal [facility] ED NOTEon 12-16-2017 ED NOTE HNO ID: [id number] Author: Rell CostaRn) YESSENIA Franco Service: Emergency Medicine Author Type: Registered Nurse Type: ED Notes Filed: 12/16/2017 8:20 PM Note Text: Pt to ct Normal [facility] ED NOTE HNO ID: [id number] Author: Rell CostaRn) YESSENIA Franco Service: Emergency Medicine Author Type: Registered Nurse Type: ED Notes Filed: 12/16/2017 7:33 PM Note Text: Called tratrevorort for ct Normal [facility] ED NOTE HNO ID: [id number] Author: Emir CostaRn) YESSENIA Tejeda Service: Emergency Medicine Author Type: Registered Nurse Type: ED Notes Filed: 12/16/2017 6:56 PM Note Text: #20 IV @ L AC in place. Normal [facility] ED NOTE HNO ID: [id number] thor: Rebecca CostaRn) JARON Bergervice: Emergency MedicineAuthor Type: Registered NurseType: ED NotesFiled: 12/16/2017 5:05 PMNote Text:Patient transfer from [facility] for surgery consult. Was knockedover by cow twice this week. +LOC with incident three days ago. +rightsided rib pain from incident yesterday morning. +rib fractures.+pneumomediastin um. Patient states pain is well controlled at this time. AAND O x 3. Denies CP or SOB. Normal [facility] ED NOTE HNO ID: [id number] thor: Preet CostaRn) Stefano Duncan: (none)Author Type: Registered NurseType: ED NotesFiled: 12/16/2017 4:51 PMNote Text:Bed: ED-31Expected date: 12/16/17Expected time:Means of arrival[facility]:Startk-S ummit: Man vs Cow Normal [facility] ED PROV NOTEon 12-16-2017 ED PROV NOTE HNO ID: [id number] thor: NADINE Mistryervice: Emergency MedicineAuthor Type: PhysicianType: ED Provider NotesFiled: 12/17/2017 12:02 AMNote Text:ED Provider NotePatient Name: Avery VasquezMRN: [id number] DATE: 12/16/17HistoryPatient presents with:Rib InjuryHPI Comments: 67 [...] ambulatory since these injuries. [facility]. 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 He was transferred from [place] for trauma evaluation. hedid loose consciousness.Vitals BP [...] MD6:23 PMApril 2017 Barbra Grider MD 12/16 1827Patient was seen and evaluated by me and the attending. He presents as atransfer from [facility] for trauma consult. He had multiple traumasover [...] of multiple ribs of right side, initial knnlaiyesP44.41XA2. Subcutaneous emphysema, initial encounter ([facility]) T79.7XXA3. Pneumomediastinum ([facility]) J98.2PlanThe Patient was ADMITTED TO: Regular Nursing Floor.Condition at time of disposition: stableSIGNATURE: Melinda Negron MDDacia (Res) EMMANUEL Negronesident12/16/17 2132Dacia (Res) EMMANUEL Negronesident12/16/17 2134Critical CareI spent a total of 35 [...] findings documented. Critical care time excludes separatelybilled procedures.Barbra Grider, Niko Grider MD12/17/17 0002 Normal [facility] ESOPHAGUSon 12-16-2017 ESOPHAGUS Performed at [facility] APPROVED BY: Douglas Rod MD EXAM TITLE: [...] near the base of the neck. Normal [facility] HISTORY PHYSICALon 8 HISTORY PHYSICAL HNO ID: [id number] thor: Adolfo Knight LeukhermantService: TraumaAuthor Type: PhysicianType: HANDPFiled: 12/16/2017 10:00 PMNote [...] / ENVIRONMENT: Not Applicable PROCEDURES: NoneSECONDARY SURVEYVITALS: 12/16/004488PL: 156/93Pulse: 79Resp: 18Temp: 36.2 ?C (97.2 ?F)TempSrc: [...] PIVsTREATMENT/EVALUATION PLANS: Admit to floorED DISPOSITION: To [facility] INJURIES: No new injuries were identified [...] large animal trauma and injury from OSH ([place])The patient was evaluated according to ATLS protocols.Injuries and diagnoses are notable for:Rib fractures, pneumomediastinum, subcutaneous emphysemaEsophagram negative, Pulm consult for bronchoscopy with possibility ofstent if injuryAdolfo Zayas, LEONIDESepartment of General SurgerySection of Trauma, Surgery Critical Care, and Acute Care Surgery Normal [facility] HOSPon 12-16-2017 HOSP Patient:Avery Vasquez MRN: [...] 32.4 % 12/18/2017 51.0 40.1Progress Notes ():Preet Duncan RN, RN 12/16/2017 4:51 PM SignedBed: ED-31Expected date: 12/16/17Expected time:Means of arrival: [facility]Comments:Startk-S ummit: Man vs Joaquin Grider MD, 12/17/2017 12:02 AM SignedED Provider NotePatient Name: Avery VasquezMRN: [id number] DATE: 12/16/17HistoryPatient presents with:Rib InjuryHPI Comments: 67 [...] since these injuries. He was transferred to [facility] fortrauma consult. He reports that he has [...] 1500 pound cow that struck him in thechest. 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 [place]. he did loose consciousness.Vitals [...] the attending. He presents as atransfer from [facility] for trauma consult. He had multiple traumas [...] initial encounter S22.41XA2. Subcutaneous emphysema, initial encounter ([facility]) T79.7XXA3. Pneumomediastinum ([facility]) J98.2PlanThe Patient was ADMITTED TO: Regular Nursing Floor.Condition at time of disposition: stableSIGNATURE: Melindaprerna Negron, MDDacia (Res) EMMANUEL Negronesident12/16/17 2132Dacia (Res) Barron Negront12/16/17 2134Critical CareI spent a total of 35 [...] Critical caretime excludes separately billed procedures.Barbra Grider, Niko Grider MD12/17/17 0002Previous VersionRebecca Berg, RN, RN 12/16/2017 5:05 PM SignedPatient [facility]. Was knocked over bycow twice this week. +LOC with incident three days ago. +right sided rib painfrom incident yesterday morning. +rib fractures. +pneumomediastinum. Patientstates pain is well controlled at this time. A AND O x 3. Denies CP or SOB.Adolfo Zayas MD 12/16/2017 10:00 PM SignedTRAUMA HANDP CCHSARRIVAL DATE: December 16, 2017ARRIVAL TIME: 6:53 PMCATEGORY: Level 3INJURY DATE: 3 days agoINJURY TIME: afternoonSubjectBre is a 67 year old White male. [...] / ENVIRONMENT: Not Applicable PROCEDURES: NoneSECONDARY SURVEYVITALS: 12/16/318069MG: 156/93Pulse: 79Resp: 18Temp: 36.2 ?C (97.2 ?F)TempSrc: [...] PIVsTREATMENT/EVALUATION PLANS: Admit to floorED [facility]IES: No new injuries were identified after [...] forblunt large animal trauma and injury from [facility] ([place])The patient was evaluated according to ATLS protocols.Injuries and diagnoses are notable for:Rib fractures, pneumomediastinum, subcutaneous emphysemaEsophagram negative, Pulm consult for bronchoscopy with possibility of stent ifinjuryAdolfo Zayas, LEONIDESepartment of General SurgerySection of Trauma, Surgery Critical Care, and Acute Care SurgeryPrevious VersionLonaveen Tejeda RN, RN 12/16/2017 6:56 PM Signed #20 IV @ L AC in place.Rell Franco, RN, RN 12/16/2017 7:33 PM Signed Called mark for Nitin Franco, RN, RN 12/16/2017 8:20 PM Signed Pt to michelleDcgabe ElizondoEn[facility]) 12/16/2017 9:40 PM SignedMEDICATION HISTORYPatient Name:Iqra VasquezMRN: [id number]: 1950Source of history:Patient: Reliability of source: Appears reliable, clearlyidentified: Medication nameMedication Nonadherence Identified: No barriers notedThe above information represents the best possible medication history: YesAdditional comments: Unable to verify with pt's pharmacy. Verified with pt.Allergies:ALLERGIESAlle rgen Reactions- Bactrim [Sulfametho* Rash- Tramadol Unknown- Vicodin [Hydrocodon* IntolerancePreferred Pharmacy: [facility] QUOTE CLERK Medications:Prior to Admission medications as of 12/16/170Medication Sig Last Dose TakingmetFORMIN ER (GLUMETZA) 500 [...] bymouth once daily. 12/16/2017 at Unknown time Joie Elizondorling [employer] Database Curator pager [phone] 2017 9:40 PMAdolfo Zayas MD 12/17/2017 2:02 [...] 12/17/17 0659 12/17/17 07 - 12/18/17 0659Shift 4990-8543 6354-1931 5955-1940 24 Hour Total 4400-5317 3911-0824 2300-979442 Hour TotalINTAKE IV 1000 1000 LR 1000 [...] December 17, 2017 : 7:13 AM Pager: [phone] NoteI evaluated the patient and personally participated [...] on Tuesday.D/C tele and continuous pulse ox.Adolfo Zayas, [facility]ITALepartment of General SurgerySection of Trauma, Surgery [...] contrast (radiology procedure) INTRAVENOUS DIRECTED PRN Melinda Ellis MDiv contrast (radiology procedure) INTRAVENOUS DIRECTED PRN Stephanie Machadoatorvastatin 10 mg tab(s) (LIPITOR) 10 mg ORAL DAILY Stephanie Salvadorwswilfrido 10 mgat 12/17/17 1148lisinopril 10 mg tab(s) (ZESTRIL, PRINIVIL) 10 mg ORAL DAILY Stephanie Stroudzowski 10 mg at 12/17/17 1148aspirin, enteric coated 81 mg tab(s) (ASPIRIN, ENTERIC COATED) 81 mg ORAL DAILYStephanie Juareszorenetta 81 mg at 12/17/17 1148morphine 1-2 mg injection 1-2 mg INTRAVENOUS q 2 H PRN Stephanie Ortiz 2mg at 12/17/17 0323docusate sodium 100 mg cap(s) (COLACE) 100 mg ORAL BID Stephanie Juareszowswilfrido 100mg at 12/17/17 1153dextrose 40 % 15 g 15 g ORAL PRN Stephanie OrtizOrglucagon 1 mg injection (GLUCAGEN) 1 mg INTRAMUSCULAR PRN Stephanie OrtizOrdextrose 50% in water 25 mL syringe 12.5 g INTRAVENOUS PRN Stephanie Day) Angellactated ringers infusion 125 mL/hr INTRAVENOUS CONTINUOUS Stephanie OrtizLast Rate: 125 mL/hr at 12/17/17 0523 125 mL/hr at 12/17/17 0523insulin lispro pen (rapid acting) (HumaLOG KWIKPEN) SUBCUTANEOUS q 6 H Lupe Ortiz 1 Units at 12/17/17 1211enoxaparin 30 mg injection (LOVENOX) 30 mg SUBCUTANEOUS q 12 HR Stephanie Machado 30 mg at 12/17/17 1149?LABSABG:Invalid input(s): [id number]:Glucose (mg/dL)Date Value12/17/2017 119 Potassium (mEq/L)Date Value12/17/2017 4.1 Sodium (mEq/L)Date 12/17/2017 139 Chloride (mEq/L)Date 12/17/2017 106 CO2 (mEq/L)Date 12/17/2017 25 Creatinine (mg/dL)Date 12/17/2017 0.67 BUN (mg/dL)Date 12/17/2017 12 Anion Gap (no units)Date 12/17/2017 12 Calcium (mg/dL)Date 12/17/2017 9.2 CBC:HGB (g/dL)Date 12/17/2017 11.904 11.4 Hematocrit (%)Date 12/17/2017 38.004 35.2 WBC (thou/cmm)Date 12/17/2017 8.8004 8.52 I personally reviewed the patient's most recent chest X-rays and chest CT'smyself.?VITALS:BP 137/91 Pulse 80 Temp 36.4 ?C (97.5 ?F) (Oral) Resp 16 Ht 172.7 cm (5'8) Wt 112.5 kg (248 lb) SpO2 98% BMI 37.71 kg/q1FOUGCZHH EXAM:GENERAL: AAOx3, pleasant, resting in bed side [...] edema.GI: Soft, nondistended, nontender, bowel sounds present [id number]: no clubbing or cyanosis. [id number]: warm, dry, intact, no rash or bruising [...] NAME:Avery BarfieldTE:December 17, 2017 :1:21 PM PAGER/CONTACT #:[phone]?Previous VersionCindy Jones MD 12/18/2017 6:09 AM IncompleteTrauma Surgery [...] 97% BMI 37.71 kg/m2O2 Therapy: Room AirIANDO:Date 12/17/17699 - 12/18/17 0659 12/18/17699 - 12/19/17 0659Shift 7222-1100 7258-1065 7785-1988 24 Hour Total 5416-6865 8152-5901 2300-340078 Hour TotalINTAKE PO 163 521 1807 PO 144 149 3287 IV 1170 648 9033 D5 LR 530 530 LR 1000 1000 [...] Note: Added automatically from request for surgery [id number]- Pneumomediastinum (HCC) 12/16/201767 year old male attacked by cow x2, most recently thrown against gate andcharged several times. No LOC. Right 3,5,6 rib fractures, pneumomediastinum,subcutan eous air in neck.- NPO for bronchoscopy today- IS- NPCS c/s pending- stable on RA- tele- pulm consultAbigail MD RobertGeneral Surgery, PGY-1April 2017 6:01 AMPager: [phone] York MD 12/18/2017 7:47 AM Signed ANESTHESIOLOGY [...] 12/18/2017Potassium 3.6 12/18/2017ANES DOS/PREOP NOTE:Vitals: 900 359 0 BP: 117/61 122/73 144/69Pulse: 72 62 62Resp: [...] ringers infusion 125 mL/hr INTRAVENOUS (PACU) ARIA YorkfentaNYL 50 mcg/mL 50 mcg injection (SUBLIMAZE) 50 mcg INTRAVENOUS (PACU) PRSarah MccoyYDROmorphone 0.5 mg injection (DILAUDID) 0.5 mg INTRAVENOUS (PACU) PRGrupo GamaxyCODONE IR 5 mg tab(s) (ROXICODONE) 5 mg ORAL (PACU) PRN Serge Wallndansetron (PF) 4 mg injection (ZOFRAN) 4 mg INTRAVENOUS (PACU) PRGrupo Rodriguezrochlorperazine 10 mg injection (COMPAZINE) 10 mg INTRAVENOUS (PACU) PRGrupo Spannkmeperidine (PF) 12.5 mg injection (DEMEROL) 12.5 mg INTRAVENOUS (PACU) PRSarah York[MAR Hold due to Transfer] acetaminophen 975 mg tab(s) (TYLENOL) 975 mg ORAL q 6H Adolfo H Leukhardt 975 mg at 12/17/17 2359[MAR Hold due to Transfer] ketorolac 15 mg injection (TORADOL) 15 mg INTRAVENOUSq 6 H Adolfo H Leukhardt 15 mg at 12/18/17 0549[MAR Hold due to Transfer] gabapentin 300 mg cap(s) (NEURONTIN) 300 mg ORAL q 8H Adolfo H Leukhardt 300 mg at 12/17/17 2135[MAR Hold due to Transfer] oxyCODONE IR 5-10 mg tab(s) (ROXICODONE) 5-10 mg ORALq 4 H PRN Adolfo Zayas[MAR Hold due to Transfer] morphine 4 mg injection 4 mg INTRAVENOUS q 2 H PRNAdolfo Zayas[MAR Hold due to Transfer] dextrose 5% in LR infusion (D5-LR) 125 mL/hrINTRAVENOUS CONTINUOUS Cindy Leisa Jones Last Rate: 125 mL/hr at12/17/178 125 mL/hr at 12/17/17 2358[MAR Hold due to Transfer] iv contrast (radiology procedure) INTRAVENOUS ASDIRECTED PRGrupo Negron MD[NOV Hold due to Transfer] iv contrast (radiology procedure) INTRAVENOUS ASDIRECTED PRN Stephanie Ortiz[NOV Hold due to Transfer] atorvastatin 10 mg tab(s) (LIPITOR) 10 mg ORAL DAILYStephanie Ortiz 10 mg at 12/17/17 1148[MAR Hold due to Transfer] lisinopril 10 mg tab(s) (ZESTRIL, PRINIVIL) 10 mgORAL DAILY Stephanie Ortiz 10 mg at 12/17/17 1148[MAR Hold due to Transfer] aspirin, enteric coated 81 mg tab(s) (ASPIRIN,ENTERIC COATED) 81 mg ORAL DAILY Stephanie Ortiz 81 mg at 12/17/17 1148[MAR Hold due to Transfer] docusate sodium 100 mg cap(s) (COLACE) 100 mg ORALBID Stephanie Ortiz 100 mg at 12/17/17 2135[MAR Hold due to Transfer] dextrose 40 % [...] (LOVENOX) 30 mgSUBCUTANEOUS q 12 HR Stephanie Juareszowski 30 mg at 12/17/17 2135Allergies:ALLERGIESAll ergen Reactions- [...] otherwise documented in primary service progress notes: [facility] information obtained within 48 hours of Surgery/Procedure.SIGNATUR E: Serge York MD PATIENT NAME: Avery VasquezDATE: December 18, 2017 : 7:46 AM CSN: [id number] Normal [facility] Hemogram/Diffon 12-16-2017 Abs Immature Grans 0.03 thou/cmm Normal 0.00-0.05 [facility] Comment on above: Performed By: #### C BCD1 ####[place] [address] Abs. Baso 0.03 thou/cmm Normal 0.01-0.08 [facility] Comment on above: Performed By: #### C BCD1 ####[place] [address] Abs. Barnwell 0.85 thou/cmm High 0.30-0.82 [facility] Comment on above: Performed By: #### C BCD1 ####[facility] [place], [place] [address] Abs. Neut 6.32 thou/cmm High 1.78-5.38 [facility] Comment on above: Performed By: #### C BCD1 ####[address] [address] Basophils/100 WBC Auto (Bld) 0.4 % Normal [facility] Comment on above: Performed By: #### C BCD1 ####[address] [address] Eosinophils 0.24 thou/cmm Normal 0.04-0.54 [facility] Comment on above: Performed By: #### C BCD1 ####[place] [address] Eosinophils/100 leukocytes 2.8 % Normal [facility] Comment on above: Performed By: #### C BCD1 ####[place] [address] Erythrocyte distribution width Auto Ratio (RBC) 15.9 % High 11.6-14.4 [facility] Comment on above: Performed By: #### C BCD1 ####[address] [address] Erythrocytes (RBC) 4.09 mil/cmm Low 4.63-6.08 [facility] Comment on above: Performed By: #### C BCD1 ####[place] [address] Hematocrit (HCT) 35.2 % Low 40.1-51.0 [facility] Comment on above: Performed By: #### C BCD1 ####[address] [address] Hemoglobin mass conc (Bld) 11.4 g/dL Low 13.7-17.5 [facility] Comment on above: Performed By: #### C BCD1 ####[address] [address] Immature Grans 0.40 % Normal [facility] Comment on above: Performed By: #### C BCD1 ####[facility] [place], [place] [address] Lymphocytes 1.04 thou/cmm Normal 0.84-2.85 [facility] Comment on above: Performed By: #### C BCD1 ####[address] [address] Lymphocytes/100 leukocytes 12.2 % Normal [facility] Comment on above: Performed By: #### C BCD1 ####[address] [address] MCH 27.9 pg Normal 25.7-32.2 [facility] Comment on above: Performed By: #### C BCD1 ####[address] [address] MCHC mass conc (RBC) 32.4 % Normal 32.3-36.5 [facility] Comment on above: Performed By: #### C BCD1 ####[place] [address] MCV 86.1 fL Normal 83.2-95.6 [facility] Comment on above: Performed By: #### C BCD1 ####[address] [address] Monocytes/100 leukocytes 10.0 % Normal [facility] Comment on above: Performed By: #### C BCD1 ####[address] [address] Platelet mean volume (PMV) 10.0 fL Normal 8.7-12.0 [facility] Comment on above: Performed By: #### C BCD1 ####[address] [address] Platelets 233 thou/cmm Normal 141-365 [facility] Comment on above: Performed By: #### C BCD1 ####[address] [address] RDW SD 49.0 fl High 36.1-45.8 [facility] Comment on above: Performed By: #### C BCD1 ####[place] [address] Seg Neutrophil 74.2 % Normal [facility] Comment on above: Performed By: #### C BCD1 ####[facility] [place], [place] [address] WBC (Leukocytes) 8.52 thou/cmm Normal 4.23-9.07 [facility] Comment on above: Performed By: #### C BCD1 ####[facility] [place], [place] [address] MDRD GFRon 12-16-2017 eGFR (non-black) mL/min/{1.73_m2} Normal >60mL/m in/ 1.73m2 [facility] Comment on above: Result Comment: If t he patient is , multiply the result by 1.210. Performed By: #### G FR ####[address] [address] PLAN OF CAREon 12-16-2017 PLAN OF CARE HNO ID: [id number] thor: John [employer] Curator)Service: (none)Author Type: TechnicianType: Plan of CareFiled: 12/16/2017 9:40 PMNote Text:MEDICATION HISTORYPatient Name:.Avery VasquezMRN: [id number]: 1950Source of history:Patient: Reliability of source: Appears reliable,clearly identified: Medication nameMedication Nonadherence Identified: No barriers notedThe above information represents the best possible medication history: YesAdditional comments: Unable to verify with pt's pharmacy. Verified withpt.Allergies:ALLERGIES Allergen Reactions- Bactrim [Sulfametho* Rash- Tramadol Unknown- Vicodin [Hydrocodon* IntolerancePreferred Pharmacy: [facility] Medications:Prior to Admission medications as of 12/16/17 [...] mouth once daily. 12/16/2017 at Unknown time Joie Conde [employer] Curator pager [phone] 2017 9:40 PM Normal [facility] Protimeon 12-16-2017 INR Coag RelTime (PPP) 1.04 {INR} Normal [facility] Comment on above: Result Comment: Soy dard Therapy 2.0-3.0High Dose 2.5-3.5 Performed By: #### P T ####[facility] [place], [place] [address] Prothrombin time (PT) Coag time (PPP) 10.9 s Normal 9.3-11.9 [facility] Comment on above: Performed By: #### P T ####[address] [address] No Panel Information Nasal Screen MRSA/MSSA [facility] Work Phone: Vital Signs Date Time Vital Sign Value Performing Clinician Facility 06-14-2025 08:24-0400 Body height 172.[address] Aidan Argueta MD Work Phone: [facility] 06-14-2025 08:24-0400 Body mass index (BMI) [Ratio] 34.2 kg/m2 Dr. Aidan Argueta MD Work Phone: [facility] 06-14-2025 08:24-0400 Body weight 102.[address] Aidan Argueta MD Work Phone: [facility] 10-10-2024 12:55-0500 Body height 170.2 cm Clarence Rhoades MD Work Phone: [facility] 10-10-2024 12:55-0500 Body mass index (BMI) [Ratio] 35.55 kg/m2 Clarence Rhoades MD Work Phone: [facility] 10-10-2024 12:55-0500 Body weight 102.97 kg Clarence Rhoades MD Work Phone: [facility] 10-10-2024 12:55-0500 Diastolic blood pressure 78 mm[Hg] Clarence Rhoades MD Work Phone: [facility] 10-10-2024 12:55-0500 Heart rate 85 /min Clarence Rhoades MD Work Phone: [facility] 10-10-2024 12:55-0500 SaO2% (BldA) [Mass fraction] 94 % Clarence Rhoades MD Work Phone: [facility] 10-10-2024 12:55-0500 Systolic blood pressure 128 mm[Hg] Clarence Rhoades MD Work Phone: [facility] 09-23-2024 08:15-0500 Body temperature 98.7 [degF] Dr. Aidan Argueta MD Work Phone: [facility] 09-23-2024 08:15-0500 Diastolic blood pressure 72 mm[Hg] Dr. Aidan Argueta MD Work Phone: [facility] 09-23-2024 08:15-0500 Heart rate 100 /min Dr. Aidan Argueta MD Work Phone: [facility] 09-23-2024 08:15-0500 Respiratory rate 12 /min Dr. Aidan Argueta MD Work Phone: [facility] 09-23-2024 08:15-0500 SaO2% (BldA) [Mass fraction] 94 % Dr. Aidan Argueta MD Work Phone: [facility] 09-23-2024 08:15-0500 Systolic blood pressure 130 mm[Hg] Dr. Aidan Argueta MD Work Phone: [facility] 07-26-2024 08:23-0500 Body height 172.[address] Aidan Argueta MD Work Phone: [facility] 07-26-2024 08:23-0500 Body mass index (BMI) [Ratio] 34.2 kg/m2 Dr. Aidan Argueta MD Work Phone: [facility] 07-26-2024 08:23-0500 Body weight 102.[address] Aidan Argueta MD Work Phone: [facility] 07-23-2024 12:53-0500 Body height 170.2 cm Clarence Rhoades MD Work Phone: [facility] 07-23-2024 12:53-0500 Body mass index (BMI) [Ratio] 35.4 kg/m2 Clarence Rhoades MD Work Phone: [facility] 07-23-2024 12:53-0500 Body weight 102.51 kg Clarence Rhoades MD Work Phone: [facility] 07-23-2024 12:53-0500 Diastolic blood pressure 79 mm[Hg] Clarence Rhoades MD Work Phone: [facility] 07-23-2024 12:53-0500 Heart rate 87 /min Clarence Rhoades MD Work Phone: [facility] 07-23-2024 12:53-0500 SaO2% (BldA) [Mass fraction] 94 % Clarence Rhoades MD Work Phone: [facility] 07-23-2024 12:53-0500 Systolic blood pressure 127 mm[Hg] Clarence Rhoades MD Work Phone: [facility] 07-12-2024 13:37-0500 Body temperature 97.81 [degF] Diana Stovall MD Work Phone: [facility] 07-12-2024 13:37-0500 Diastolic blood pressure 69 mm[Hg] Diana Stovall MD Work Phone: [facility] 07-12-2024 13:37-0500 Heart rate 81 /min Diana Stovall MD Work Phone: [facility] 07-12-2024 13:37-0500 Respiratory rate 18 /min Diana Stovall MD Work Phone: [facility] 07-12-2024 13:37-0500 SaO2% (BldA) [Mass fraction] 95 % Diana Stvoall MD Work Phone: [employer] [facility] 07-12-2024 13:37-0500 Systolic blood pressure 121 mm[Hg] Diana Stovall MD Work Phone: [facility] 07-11-2024 19:51-0500 Body mass index (BMI) [Ratio] 36.84 kg/m2 Diana Stovall MD Work Phone: [facility] 07-11-2024 19:51-0500 Body weight 106.7 kg Diana Stovall MD Work Phone: [facility] 07-07-2024 18:31-0400 SaO2% (BldA) [Mass fraction] 95.7 % Diana Stovall MD Work Phone: [facility] 07-07-2024 12:05-0400 Body height 170.2 cm Diana Stovall MD Work Phone: [facility] 07-03-2024 10:23-0400 Body height 170.2 cm Godfrey Myers MD Work Phone: [facility] [facility] 07-03-2024 10:23-0400 Body mass index (BMI) [Ratio] 36.65 kg/m2 Godfrey Myers MD Work Phone: [facility] [facility] 07-03-2024 10:23-0400 Body weight 106.14 kg Godfrey Myers MD Work Phone: [facility] [facility] 07-03-2024 10:23-0400 Diastolic blood pressure 88 mm[Hg] Godfrey Myers MD Work Phone: [facility] [facility] 07-03-2024 10:23-0400 Heart rate 79 /min Godfrey Myers MD Work Phone: [facility] [facility] 07-03-2024 10:23-0400 Systolic blood pressure 136 mm[Hg] Godfrey Myers MD Work Phone: [employer] [facility] 06-27-2024 10:00-0400 Diastolic blood pressure 55 mm[Hg] Alonso Marin MD Work Phone: [facility] 06-27-2024 10:00-0400 Heart rate 92 /min Alonso Marin MD Work Phone: [facility] 06-27-2024 10:00-0400 Respiratory rate 15 /min Alonso Marin MD Work Phone: [facility] 06-27-2024 10:00-0400 SaO2% (BldA) [Mass fraction] 96 % Alonso Marin MD Work Phone: [facility] 06-27-2024 10:00-0400 Systolic blood pressure 101 mm[Hg] Alonso Marin MD Work Phone: [facility] 06-27-2024 09:01-0400 Body height 172.7 cm Alonso Marin MD Work Phone: [facility] 06-27-2024 08:09-0400 Body temperature 97.39 [degF] Alonso Marin MD Work Phone: [facility] 06-27-2024 06:00-0400 Body mass index (BMI) [Ratio] 35.17 kg/m2 Alonso Marin MD Work Phone: [facility] 06-27-2024 06:00-0400 Body weight 104.9 kg Alonso Marin MD Work Phone: [facility] 09-08-2022 08:13-0500 Body height 172.[address] Jair Henning Work Phone: [facility] 09-08-2022 08:13-0500 Body mass index (BMI) [Ratio] 36.8 kg/m2 Dr. Jair Henning Work Phone: [facility] 09-08-2022 08:13-0500 Body weight 109.[address] Jair Henning Work Phone: [facility] 05-07-2022 13:41-0400 Body height 172.7 cm Bert Ortiz MD Work Phone: [facility] 05-07-2022 13:41-0400 Body weight 108.86 kg Bert Ortiz MD Work Phone: [facility] 03-05-2022 14:53-0400 Body height 172.7 cm Pacc 1 Work Phone: [facility] 03-05-2022 14:53-0400 Body temperature 97.39 [degF] Pacc 1 Work Phone: [facility] 03-05-2022 14:53-0400 Body weight 108.86 kg Pacc 1 Work Phone: [facility] 03-05-2022 14:53-0400 Diastolic blood pressure 62 mm[Hg] Pacc 1 Work Phone: [facility] 03-05-2022 14:53-0400 Heart rate 100 /min Pacc 1 Work Phone: [facility] 03-05-2022 14:53-0400 Respiratory rate 18 /min Pacc 1 Work Phone: [facility] 03-05-2022 14:53-0400 SaO2% (BldA) [Mass fraction] 97 % Pacc 1 Work Phone: [facility] 03-05-2022 14:53-0400 Systolic blood pressure 134 mm[Hg] Pacc 1 Work Phone: [facility] 12-14-2021 09:27-0400 Body height 172.72 cm [facility] Work Phone: Encounters Encounter Date Encounter Type Care Provider Facility Start: 07-17-2025 ambulatory Aidan Argueta Facilit y:[facility] Start: 07-16-2025 ambulatory Aidan Argueta Facilit y:[facility] Start: 07-04-2025 End: 07-04-2025 ambulatory Aidan Argueta Facility[place] Start: 06-20-2025 End: 06-20-2025 ambulatory Aidan Argueta Facility:[facility] Start: 06-14-2025 End: 06-14-[address] Kostas Borja MD -[facility] Work Phone: Start: 06-14-2025 End: 06-14-[address] Aidan Argueta MD Work Phone: [facility] Start: 05-20-2025 End: 05-20-[address] Aidan Argueta MD Work Phone: -Cardiovascular Services Start: 05-20-2025 End: 05-20-[address] Aidan Argueta MD -Cardiovascular Services Work Phone: Start: 05-20-2025 End: 05-20-2025 ambulatory Aidan Argueta Facility:[facility] Start: 05-02-2025 End: 05-02-[address] Aidan Argueta MD Work Phone: -Laboratory [facility] Start: 05-02-2025 End: 05-02-[address] Aidan Argueta MD -Laboratory [facility] Start: 05-02-2025 End: 05-02-2025 ambulatory Aidan Argueta Facility:[facility] Start: 11-05-2024 End: 11-05-[address] Aidan Argueta MD Work Phone: [facility] Work Phone: Start: 11-05-2024 End: 11-05-[address] Aidan Argueta MD -Laboratory, [facility] Start: 11-05-2024 End: 11-05-2024 ambulatory Aidan Argueta Facility:[facility] Start: 10-10-2024 End: 10-10-2024 Office outpatient visit 15 minutes Clarence Rhoades MD Work Phone: [facility] [place] Comment on above: Acute pulmonary embo lism without acute cor pulmonale, unspecified pulmonary embolism type (HCC) (Primary Dx) Start: 10-10-2024 End: 10-10-2024 ambulatory AIDAN ARGUETA [facility] Start: 10-08-2024 End: 10-16-2024 Telephone encounter Clarence Rhoades MD Work Phone: [facility] [place] Comment on above: Appointment Start: 09-24-2024 End: 09-24-[address] Aidan Argueta MD -Laboratory, [facility] Work Phone: Start: 09-23-2024 End: 09-23-2024 Patient encounter procedure Aidan Pratt MEAT APPRENTICE-[facility] Work Phone: Start: 09-23-2024 End: 09-24-2024 ambulatory Aidan Argueta Facility:[facility] Start: 07-26-2024 End: 07-26-[address] Jair Gu MD -[facility] Work Phone: Start: 07-26-2024 End: 07-26-2024 ambulatory Aidan rAgueta Facility[place] Start: 07-23-2024 End: 07-23-2024 Telephone encounter Melina Flores RN [facility] Start: 07-23-2024 End: 07-23-2024 Office outpatient new 30 minutes Clarence Rhoades MD Work Phone: [facility] [place] Comment on above: Acute pulmonary embo lism without acute cor pulmonale, unspecified pulmonary embolism type (HCC) (Primary Dx) Start: 07-23-2024 End: 07-23-2024 ambulatory AIDAN ARGUETA [facility] Start: 07-09-2024 End: 07-09-2024 Telephone encounter Sam Dupont DO Work Phone: [facility] [place] Start: 07-06-2024 End: 07-12-2024 Evaluation and management of inpatient Diana Stovall MD Work Phone: [facility] Trauma Neuro Progressive Care Unit PCU 3W Comment on above: Acute pulmonary embo lism without acute cor pulmonale, unspecified pulmonary embolism type (HCC) (Primary Dx) Start: 07-03-2024 End: 07-03-2024 Office outpatient visit 15 minutes Godfrey Myers MD Work Phone: [facility] [place] Comment on above: SAH (subarachnoid he morrhage) (HCC) (Primary Dx) Start: 07-03-2024 End: 07-03-2024 ambulatory GODFREY MYERS [facility] Start: 07-02-2024 End: 07-02-2024 Telephone encounter Godfrey Myers MD Work Phone: [facility] [place] Comment on above: Appointment Request Start: 06-26-2024 End: 06-27-2024 Evaluation and management of inpatient Alonso Marin MD Work Phone: [facility] Surgical Trauma Neuro Intensive Care Unit STN ICU T2 Comment on above: Intracranial bleedin g (HCC) (Primary Dx); Osteoporosis, unspecified osteoporosis type, unspecified pathological fracture presence; Closed fracture of multiple ribs of right side with routine healing; Traumatic closed fracture of distal clavicle with minimal displacement, right, initial encounter Start: 11-14-2023 End: 11-14-2023 ambulatory [facility] Work Phone: Start: 11-14-2023 End: 11-14-2023 Patient encounter procedure [facility] Start: 07-18-2023 End: 07-18-2023 ambulatory [facility] Work Phone: Start: 07-18-2023 End: 07-18-2023 Patient encounter procedure [facility] Start: 04-28-2023 End: 04-28-2023 ambulatory [facility] Work Phone: Start: 04-28-2023 End: 04-28-2023 Patient encounter procedure [facility] Work Phone: Start: 03-10-2023 End: 03-10-2023 ambulatory [facility] Work Phone: Start: 03-10-2023 End: 03-10-2023 Patient encounter procedure [facility] Start: 03-01-2023 End: 03-01-2023 ambulatory [facility] Work Phone: Start: 03-01-2023 End: 03-01-2023 Patient encounter procedure [facility] Work Phone: Start: 01-26-2023 End: 01-26-2023 Patient encounter procedure [facility] Start: 11-01-2022 End: 11-01-[address] Jair Henning Work Phone: [facility] Work Phone: Start: 11-01-2022 End: 11-01-[address] Jair Henning Work Phone: [facility] Start: 09-22-2022 End: 09-22-[address] Jair Henning Work Phone: [facility] Work Phone: Start: 09-22-2022 End: 09-22-[address] Jair Henning Work Phone: [facility] Start: 09-17-2022 End: 09-17-[address] Jair Henning Work Phone: [facility] Start: 09-16-2022 End: 09-16-2022 ambulatory JAIR PICKENS [facility] Start: 09-08-2022 End: 09-08-[address] Jair Henning Work Phone: [facility] Start: 06-25-2022 End: 06-25-2022 ambulatory JAIR HENNING Facility:[facility] Start: 06-25-2022 ambulatory UNKNOWN PROVIDER Facili ty:[facility] Start: 06-25-2022 End: 06-25-2022 Subsequent hospital visit by physician [facility] Work Phone: Radiology Comment on above: Chronic left shoulde r pain [M25.512, G89.29] Start: 05-28-2022 End: 05-28-[address] Jair Henning Work Phone: [facility] Work Phone: Start: 05-28-2022 End: 05-28-[address] Jair Henning Work Phone: [facility] Start: 05-07-2022 End: 05-07-2022 ambulatory JAIR HENNING Facility:[facility] Start: 05-07-2022 End: 05-07-2022 Patient encounter procedure Bert Ortiz MD Work Phone: Orthopedics Comment on above: S/P reverse total sh oulder arthroplasty, left (Primary Dx) Start: 05-07-2022 End: 05-07-2022 Subsequent hospital visit by physician [employer] Work Phone: Radiology Comment on above: Chronic left shoulde r pain [M25.512, G89.29] Start: 04-13-2022 Orders Only Bert Ortiz MD Work Phone: Orthopedics Comment on above: Chronic left shoulde r pain (Primary Dx) Start: 04-02-2022 End: 04-02-2022 ambulatory VICKI DUMONT Facility:[facility] Start: 04-02-2022 End: 04-02-2022 Patient encounter procedure Bert Ortiz MD Work Phone: Orthopedics Comment on above: S/P reverse total sh oulder arthroplasty, left (Primary Dx) Start: 04-02-2022 End: 04-02-2022 Subsequent hospital visit by physician [employer] Work Phone: Radiology Comment on above: Left shoulder pain, unspecified chronicity [M25.512] Start: 03-30-[address] Jair Henning Work Phone: [facility]-Physical Therapy Start: 03-22-2022 Orders Only Bert Ortiz MD Work Phone: Orthopaedics Comment on above: Left shoulder pain, unspecified chronicity (Primary Dx) Start: 03-19-2022 ambulatory BERT ORTIZ Facility:[facility] Start: 03-10-2022 Telephone encounter Bert Ortiz MD Work Phone: Orthopaedics Comment on above: Appointment Start: 03-05-2022 Encounter for other preprocedural examination JAIR HENNING [facility] Start: 03-05-2022 End: 03-05-2022 Admission to [facility] 1 Work Phone: [facility] Start: 03-05-2022 End: 03-05-2022 Preprocedural examination done [place] [id number] Work Phone: Pre Anesthesia Start: 03-05-2022 End: 03-05-2022 Patient encounter procedure Bert Ortiz MD Work Phone: Orthopedics Comment on above: Primary osteoarthrit is of left shoulder (Primary Dx) Start: 03-05-2022 End: 03-05-2022 ambulatory [facility] 1 Work Phone: Pre Anesthesia Comment on above: Preoperative examina tion (Primary Dx); Primary osteoarthritis of left shoulder; Type 2 diabetes mellitus without complication, without long-term current use of insulin (HCC); Hypertension, unspecified type; Obesity, Class II, BMI 35-39.9 E66.9; Hyperlipidemia, unspecified hyperlipidemia type Start: 03-05-2022 End: 03-05-2022 Subsequent hospital visit by physician [facility] Work Phone: Radiology Comment on above: Chronic left shoulde r pain [M25.512, G89.29] Start: 02-15-2022 End: 02-15-[address] Jair Henning Work Phone: [facility]-Pre-Admission Testing Start: 02-15-2022 Non-patient / Non-visit Dr. Toan Henning Work Phone: [facility] Start: 12-30-2021 End: 12-30-2021 Patient encounter procedure [facility]-Cat Scan, [facility] Start: 08-15-2018 End: 08-16-2018 Evaluation and management of inpatient HUGO CASTAÑEDA Facility:B Start: 08-07-2018 End: 08-08-2018 Patient encounter procedure HUGO CASTAÑEDA Facility:B Start: 12-16-2017 End: 12-18-2017 Evaluation and management of inpatient JAIR HENNING Facility:[facility] Procedures Date Procedure Procedure Detail Performing [...] 07-11-2024 Glucose quantitative blood xcpt reagent strip Diaan Stovall MD Work Phone: Start: 07-11-2024 Basic [...] Radiologic exam ches t single view Elsy Janene Johnathon DO Work Phone: Start: 07-10-2024 Urinalysis complete panel - Urine Elsy Janene Diego DO Work Phone: Start: 07-10-2024 Urnls dip stick/tabl et rgnt auto w/o microscopy Elsy Diego DO Work Phone: Start: 07-10-2024 End: 07-10-2024 Smr prim src gram/giemsa stain bct fungi/cell Elsy Janene Diego DO Work Phone: Start: 07-10-2024 Assay [...] 07-09-2024 Basic metabolic pane l calcium total Poncho Cortez MD Work Phone: Start: 07-08-2024 Glucose [...] 07-08-2024 Basic metabolic panel calcium total Aneil Mo Cortez MD Work Phone: Start: 07-08-2024 BLOOD [...] 07-07-2024 TTE w or wo fol wcon,Doppler Hussein P Reggie SUPERVISOR FABRICATION DEPARTMENT - SUPERVISOR BILLPOSTING Work Phone: Start: 07-07-2024 Glucose quantitative blood [...] Ct head/brain w/o co ntrast material Shy Amanda Doran MD Work Phone: Start: 06-26-2024 Radex [...] Comment: Speci men Type: BLOOD SPECIMENOrdering Facility: [facility] Address: [address] [place] [address] Performed By: #### T [id number] ####CC MAIN BLOOD BANKCLIA [id number] [address] Start: 03-05-2022 Radex shoulder compl ete minimum 2 views Vicki Dumont DO Work Phone: Start: 12-30-2021 CT of upper limb wit hout contrast Nasal Screen MRSA/MSSA Dr. Lauren Henning Work Phone: Plan of Treatment Date Care Activity Detail Author Start: 08-13-2025 End: 08-13-2025 Patient encounter procedure 08/13/2025 2:20 PM EST Office Visit [facility] [address] [place] [address] Brianne Maradiaga, SUPERVISOR FABRICATION DEPARTMENT - SUPERVISOR BILLPOSTING [address] [place], [place] [id number] [facility] Orthopedics [facility] Sports Medicine [facility] Start: 07-12-2025 Diabetes: Estimated Glomerular Filtration Rate for Kidney Health Diabetes: Estimated Glomerular Filtration Rate for Kidney Health [facility] Start: 07-09-2025 Diabetes: Estimated Glomerular Filtration Rate for Kidney Health Diabetes: Estimated Glomerular Filtration Rate for Kidney Health [facility] Start: 06-28-2025 Registered Recurring Registered Recu rring -Physical Therapy Work Phone: Start: 06-27-2025 Diabetes: Estimated Glomerular Filtration Rate for Kidney Health Diabetes: Estimated Glomerular Filtration Rate for Kidney Health [facility] Start: 06-20-2025 MRI of lumbar spine Spine Lumbar (Ro utimt) [facility] Start: 06-20-2025 Patient encounter procedure Registered [facility] Work Phone: Start: 2025 RSV Immunization for Adults (1 - 1-dose 75+ series) RSV Immunization for Adults (1 - 1-dose 75+ series) [facility] Start: 10-10-2024 End: 10-10-2024 Patient encounter procedure 10/10/2024 1:15 PM EST Office Visit [facility] Pulmonary - [place] [address] [place] [address] Clarence Rhoades MD [address] [place] [phone] [facility] [place] Start: 09-07-2024 Screening for malign ant neoplasm of colon [facility] Start: 07-31-2024 End: 07-31-2024 Patient encounter procedure 07/31/2024 1:00 PM EST Office Visit [facility] Spine [facility] Neuroscience [address] [phone] Godfrey Myers MD [address] [place] [address] [id number] [facility] Spine [facility] Neuro[facility] [place] Start: 07-30-2024 End: 07-30-2024 Patient encounter procedure 07/30/2024 1:00 PM EST Appointment [facility] [address] [place] [address] Shaggy Saucedo PA-C [address] [place] [address] [address] [facility] [address] Start: 07-23-2024 End: 07-23-2024 Patient encounter procedure 07/23/2024 1:00 PM EST Office Visit [facility] [place] [address] [place] [address] Clarence Rhoades MD [address] [place] [phone] [facility] [place] Start: 07-13-2024 End: 07-13-2024 Patient encounter procedure 07/13/2024 10:15 AM EST Office Visit [facility] Spine [facility] [address] [phone] Godfrey Myers MD [address] [place] [phone] [facility]science [place] Start: 07-11-2024 End: 06-27-2025 CT Head WO contrast CT head wo IV contrast Imaging Routine Intracranial bleeding (HCC) Expected: 07/11/2024, Expires: 06/27/[address] [facility] Work Phone: Comment on above: Expected: 07/11/2024 , Expires: 06/27/2025 Start: 07-11-2024 End: 07-11-2024 Patient encounter procedure 07/11/2024 11:30 AM EST Appointment [facility] [address] [place] [phone] Shaggy Saucedo PA-C [facility] [place], [place] [phone] [facility] Joey [address]oz[address] Start: 07-10-2024 End: 07-10-2024 Patient encounter procedure 07/10/2024 11:30 AM EST Office Visit [facility] Trauma - [place] [address] [place] [address] Maude Babin PA-C [address] [place] [address] [facility] [place] Start: 07-03-2024 End: 07-03-2024 Patient encounter procedure 07/03/2024 10:15 AM EDT Office Visit [facility] Spine [facility] [address] [phone] Godfrey Myers MD [address] [place] [address] [phone] [facility] Start: 05-06-2024 COVID-19 Vaccine ( season) COVID-19 Vaccine ( season) [facility] Start: 05-06-2022 Influenza vaccination INFLUENZA (#1) [facility] Start: 03-05-2022 End: 05-05-2022 CONFIRM BLOOD TYPE [facility] Work Phone: Comment on above: Expected: 03/05/2022 , Expires: 05/05/2022 Start: 03-05-2022 End: 05-05-2022 TYPE AND SCREEN,30 DAY [facility] Work Phone: Comment on above: Expected: 03/05/2022 , Expires: 05/05/2022 Start: 10-26-2021 COVID-19 VACCINE (4 - Booster for Pfizer series) COVID-19 VACCINE (4 - Booster for Pfizer series) [facility] Start: 09-05-2021 ADVANCE DIRECTIVE DISCUSSION ADVANCE DIRECTIVE DISCUSSION [facility] Start: 09-05-2021 DEPRESSION ASSESSMENT DEPRESSION ASS ESSMENT [facility] Start: 08-20-2021 COVID-19 VACCINE (4 - Booster for Pfizer series) COVID-19 VACCINE (4 - Booster for Pfizer series) [facility] Start: 2010 RSV Immunization for Adults (1 - Risk 60-74 years 1-dose series) RSV Immunization for Adults (1 - Risk 60-74 years 1-dose series) [facility] Start: 02-27-2000 SHINGRIX VACCINE (1 of 2) SHINGRIX VACCINE (1 of 2) [facility] Start: 02-27-2000 Zoster Vaccines (1 o f 2) Zoster Vaccines (1 of 2) [facility] Start: 1995 COLOGUARD (FIT-DNA) COLOGUARD (FIT-D NA) [facility] Start: 1995 Colonoscopy COLONOSCOPY [facility] Start: 1995 COLORECTAL CANCER SCREENING COLORECTAL CANCER SCREENING [facility] Start: [address] COLONOGRAPHY [facility] Start: 1995 FECAL OCCULT BLOOD FECAL OCCULT BLOO D [facility] Start: 1995 [facility] Start: 1969 DTaP/Tdap/Td Vaccine s (1 - Tdap) DTaP/Tdap/Td Vaccines (1 - Tdap) [facility] Start: 1969 Urine microalbumin profile DTAP,TDAP,TD (1 - Tdap) [facility] Start: 02-27-1968 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 MUKUL DISEASE VISIT ANNUAL PCP TEAM CHRONIC DISEASE VISIT [facility] Start: 02-27-1968 BP CONTROLLED (<130/80) BP CONTROLLE D (<130/80) [facility] Start: 02-27-1968 Diabetes: Urine Albumin-Creatinine Ratio for Kidney Health Diabetes: Urine Albumin-Creatinine Ratio for Kidney Health [facility] Start: 02-27-1968 Hepatitis B surface antibody level LDL CHOLESTEROL [facility] Start: 02-27-1968 HEPATITIS C SCREENING HEPATITIS C SC [facility] Start: 02-27-1968 Hepatitis C screening Hepatitis C [facility] Start: 1962 Adult depression screening assessment DEPRESSION SCREENING [facility] Start: 02-27-1960 3 comp foot exam completed DIABETIC FOOT EXAM [facility] Start: 02-27-1960 Diabetic foot examination Diabetes: Foot Exam [facility] Start: 02-27-1960 Glaucoma screening Diabetes: R etinopathy Screening [facility] Start: 02-27-1960 Hepatitis B screening URINE ALBUMIN:CREATININE RATIO [facility] Start: 02-27-1960 Hepatitis C antibody , confirmatory test DILATED RETINAL EXAM [facility] Start: 02-27-1960 Preventive dental service Diabetes: Dental Exam [facility] Start: 02-27-1956 PNEUMOCOCCAL: 65+ (1 - PCV) PNEUMOCOCCAL: 65+ (1 - PCV) [facility] Start: 1955 Hemoglobin A1c/Hemoglobin.total in Blood HBA1C [facility] Start: 1950 ABDOMINAL AORTIC ANEURYSM SCREENING ABDOMINAL AORTIC ANEURYSM SCREENING [facility] Start: 1950 Hemoglobin A1c measurement Diabetes: Hemoglobin A1C [facility] Start: 1950 Lipid panel Lipid Panel [facility] Start: 1950 Medicare Annual Wellness (AWV) Medicare Annual Wellness (AWV) [facility] Start: 1950 Screening for malign ant neoplasm of colon [facility] Bacteria identified in Blood by Culture [facility] Work Phone: Bacteria identified in Blood by Culture [facility] Work Phone: MR Lumbar spine [facility] XR SHOULDER GENERAL 3V OR MORE AP/TRUE AP/OTHER LEFT [facility] Work Phone: Comment on above: Ordered: 03/24/2022 XR SHOULDER GENERAL 3V OR MORE AP/TRUE AP/OTHER LEFT XR SHOULDER GENERAL 3V OR MORE AP/TRUE AP/OTHER LEFT Radiology Routine Chronic left shoulder pain Ordered: 04/14/2022 [facility] Work Phone: Comment on above: Ordered: 04/14/2022 [facility] Immunizations Immunization Date Immunization Notes Care Provider Debra flor 06-02-2015 Influenza virus vaccine [facility] Payers Date Payer Category Payer Self-pay [id number] 2021 Medicare supplementa l policy (as second payer) MMO MEDICARE SUPPLEMENT [id number] 2019 Unknown MMO MMO MEDICARE SUPPLEMENT [id number] 2019-Present [phone] [address] [place] [address] Indemnity [id number] 2019 Unknown MMO MMO MEDICARE SUPPLEMENT [id number] 2019-Present [phone] [address] [place] [address] Indemnity [id number] 2018 Medicare [id number] 2018 Medicare [id number] 2018 Private Health Insurance [id number] 2015 Medicare [id number] 2015 Medicare MEDICARE MEDICAR E A AND B [id number] 2015-Present [phone] [address] [address] [place] [address] Medicare [id number] 2015 Medicare [id number] 2015 Medicare [id number] 2014 Unknown [id number] 1950 Unknown [id number] .627 1950 Unknown [id number] 2.16.840.1.123655.3.579.2 .627 1950 Unknown [id number] 2.16.840.1.942573.3.579.2 .651 Medicare [id number] Unknown [id number] 2.16.840.1.336354.3.579.2 .462 Unknown [id number] 2.16.840.1.175231.3.579.2 .462 Unknown [id number] 2.16.840.1.171468.3.579.2 .462 Unknown [id number] 2.16.840.1.547900.3.579.2 .462 Unknown [id number] 2.16.840.1.049780.3.579.2 .462 Unknown [id number] 2.16.840.1.191095.3.579.2 .462 Unknown [id number] 2.16.840.1.034650.3.579.2 .462 Unknown [id number] 2.16.840.1.717397.3.579.2 .462 Unknown [id number] 2.16.840.1.448384.3.579.2 .462 Unknown [id number] 2.840.1.683067.3.579.2 .462 Unknown [id number] 2.16840.1.064635.3.579.2 .462 Unknown [id number] 2.16840.1.607166.3.579.2 .462 Unknown [id number] 2.840.1.853952.3.579.2 .462 Unknown [id number] 2.0.1.813259.3.579.2 .462 Social History Date Type Detail Facility Start: 07-13-2018 End: 09-17-2022 Tobacco smoking status [facility] Unknown if ever smoked [facility] Start: 07-22-2015 Occasional [facility] Start: 07-22-2015 None;- [facility] Start: 07-22-2015 Spouse/ Signif icant Other [facility] Start: 1950 Sex Assigned At Male [facility] Start: 12-16-2017 End: 03-05-2022 Tobacco smoking status NEIS Ex-smoker [facility] End: 09-05-1979 History of tobacco use Current smoker [facility] End: 09-05-1979 History of tobacco use Cigar Smoker [facility] Start: 12-16-2017 End: 07-03-2024 Tobacco use and exposure Smokeless tobacco non-user [facility] Start: 03-05-2022 End: 07-23-2024 Alcohol intake Current drinker of alcohol (finding) [facility] Start: 03-05-2022 End: 10-10-2024 Alcohol intake [facility] Start: 1950 Sex Assigned At Not on file [facility] Start: 02-23-2022 End: 06-25-2022 Exposure to SARS-CoV-2 (event) Not sure [facility] Start: 06-26-2024 End: 11-16-2024 Sex Male (finding) [facility] Start: 06-26-2024 Gender identity Identifies as male gender (finding) [facility] Start: 07-03-2024 End: 10-10-2024 Sexual orientation Not on file [facility] Start: 07-03-2024 End: 07-06-2024 Tobacco smoking status NHIS Never smoked tobacco [facility] Start: 07-03-2024 Alcohol Comment occ [facility] Medical Equipment Procedure Code Equipment Code Equipment Origin al Text Equipment Identifier Dates Head Rsp 32mm Ne utral Glenoid Retain Screw - [id number] Start: 03-19-2022 Stem Humeral Std Encore Reverse Shoulder [id number] - [id number] Start: 03-19-2022 Insert Rsp Djo Surgical Hxe+ Socket 32 Semiconstrain Sterile Humeral - [id number] Start: 03-19-2022 Baseplate Rsp P2 30mm Glenoid Sterile - [id number] Start: 03-19-2022 Screw Rsp 5mm 18 mm Bone Lock Glenoid Baseplate Shoulder - [id number] Start: 03-19-2022 Screw Rsp 5mm 18 mm Bone Lock Glenoid Baseplate Shoulder - [id number] Start: 03-19-2022 Screw Rsp 5mm 26 mm Bone Lock Glenoid Baseplate Shoulder - [id number] Start: 03-19-2022 Screw Rsp 5mm 30 mm Bone Lock Glenoid Baseplate Shoulder - [id number] Start: 03-19-2022 Clinical Notes 12-16-2017 to 06-14-2025 Clarence Rhoades MD - 10/10/2024 1:15 PM ESTTelephone Encounter - Roxanna Jackson RN - 10/08/2024 5:07 PM ESTTelephone Encounter - Roxanna Jackson RN - 10/08/2024 5:07 PM EST Note Date & Type Note Facility 06-14-2025 Progress note [facility] 06-14-2025 Radiology Diagnostic study note [facility] Imaging Services [address] [place] [address] L/S Spine Min 4 Views MR#: [id number] Acct: [id number] Name: AVERY VASQUEZ Rep #: [id number] : 1950 M 75 From: Agustin Kelley DO PCP: Dr. Aidan Argueta MD Status: DE P AMB Study:L/S Spine Min 4 Views Date of Exam: 06/14/25 Exam# [id number] Ordering Dr: Sven Haynes PROCEDURE: L/S SPINE [...] findings with low back pain. Reading Location: [id number] CC: TEDDY Godinez; Dr. Aidan Argueta MD ~ Chief Projectionist: Signed [facility] 10-10-2024 History of Present illness Narrative Images from the original note were not included. 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 I have personally reviewed all pertinent labs and imaging. Assessment & Plan: Bilateral PE, provoked - outside CTA chest 07/06/24 from [place] reviewed in PACS, bilateral segmental filling defects [...] Rhoades MD Pulmonary & Critical Care Medicine [facility] documented in this encounter [facility] 10-08-2024 Telephone encounter Note Phone call to patient and relayed to him that provider did want to see him at least one more time before releasing him from routine care. He verbalized agreement and will keep appt as scheduled. [facility] 10-08-2024 Miscellaneous Notes Phone call to patient [...] Name of caller: Avery Contact phone number: [phone] Relationship to Patient: patient Provider: Practice: Chief Complaint/Reason for Call: Patient calling to see why he is scheduled. Patient states at his July appointment he was told he did not need a follow up. Please advise. Best time of day caller can be reached: any Patient advised that office/PCP has 24-48 business hours to return their call: no documented in this encounter [facility] 10-08-2024 Telephone encounter Note Yes I would like to see patient one more time to review any symptoms and confirm treatment duration of anticoagulation (should be finished with 3 months of Eliquis). Thank you. [employer] Work Phone: 10-08-2024 Note Per progress note fr July office visit provider plan was to see patient in 3-6 months. Will ask if patient needs to keep appointment 10/10/24. [employer] [facility] 10-08-2024 Telephone encounter Note Per progress note from July office visit provider plan was to see patient in 3-6 months. Will ask if patient needs to keep appointment 10/10/24. [employer] 10-08-2024 Telephone encounter Note Name of caller: Avery Contact phone number: [phone] Relationship to Patient: patient Provider: Practice: Chief Complaint/Reason for Call: Patient calling to see why he is scheduled. Patient states at his July appointment he was told he did not need a follow up. Please advise. Best time of day caller can be reached: any Patient advised that office/PCP has 24-48 business hours to return their call: no [employer] [facility] 07-26-2024 Evaluation note Diagnosis Onset Date Resolution Right clavicle fracture acute July 26, 024 8:16am Acute cystitis acute September 232024 7:58am [facility] Work Phone: 1(386) 351-471911-19-2024 Telephone encounter Note* Telephone Encounter - Melina Flores RN - 07/24/2024 12:41 PM EST Relayed information to patient, and he verbalized understanding. [employer] [id number] Miscellaneous Notes* Telephone Encounter - Melina Flores [...] symptoms such as headaches. documented in this [facility] [id number] Telephone encounter Note* Telephone Encounter - Shaggy Saucedo PA-C - 07/24/2024 12:03 PM EST Discussed with Dr Myers. CT head from the hospital on 07/08 appears stable with no new hemorrhage. He may follow up with us on an as needed basis. [employer] Work Phone: 1(530) 988-321511-18-2024 History of Present illness Narrative* Clarence Rhoades MD - 07/23/2024 1:00 PM EST Images from the original note were not included. 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 I have personally reviewed all pertinent labs and imaging. Assessment & Plan: Bilateral PE, provoked - outside CTA chest 07/06/24 from [place] reviewed in PACS, bilateral segmental filling defects [...] Rhoades MD Pulmonary & Critical Care Medicine [facility] [id number] Telephone encounter Note* Telephone Encounter - Melina [...] He denies any symptoms such as headaches. [id number] Telephone encounter Note* Telephone Encounter - Roxanna Jackson RN - 07/12/2024 2:21 PM EST PC to patient to schedule a follow up appointment however call dropped and repeat attempts went to voicemail. Patient currently admitted at [facility]. He returned call to the office from hospital phone reporting that his cell phone does not carry a signal. HFU scheduled in [place] with Dr. Rhoades per location request. Patient request appointment reminder be emailed to him at email on file in EMR. [id number] Miscellaneous Notes* Telephone Encounter - Roxanna Jackson RN - 07/12/2024 2:21 PM EST PC to patient to schedule a follow up appointment however call dropped and repeat attempts went to voicemail. Patient currently admitted at [facility]. He returned call to the office from hospital phone reporting that his cell phone does not carry a signal. HFU scheduled in [place] with Dr. Rhoades per location request. Patient request appointment reminder be emailed to him at email on file in EMR. * Telephone Encounter - Sam Rangel Dupont DO - 07/09/2024 11:32 AM EST Patient with pulmonary emboli, started on eliquis. Needs follow up for pulmonary emboli in 2 weeks.Patient lives in [place] and would like to go to [place]. Thanks. documented in this [facility]11-07-2024 [facility] - Infectious Diseases Attending Progress [...] PROT 6.1 (L) 07/07/2024 183 BILITOT 0.6 07/07/20241837 ALKPHOS 75 07/07/2024 183 AST 35 07/07/2024 183 ALT 45 07/07/2024 183 PROCAL 18.08 (H) 07/08/2024 0639 PROCAL 15.61 [...] team. OK to DC home from ID standpoint.[facility]11-07-2024 History of Present illness Narrative* Washington Elkins MD - 07/12/2024 1:23 PM EST [facility] - Infectious Diseases Attending [...] 183 BILITOT 0.6 07/07/2024 183 ALKPHOS 75 07/07/20241837 AST 35 07/07/2024 183 ALT 45 07/07/2024 183 PROCAL 18.08 (H) 07/08/2024 0639 PROCAL 15.61 [...] be monitored and followed by the diet lead manufacturing technician. CODY Mitchell * Katina Prather PTA - 07/12/2024 9:43 AM EST Images from the original note were not included. PHYSICAL THERAPY [facility] Treatment Note Name/MRN: Avery Vasquez ([id number]) Date of : 1950 Age: 74 y.o. Room[facility]Bed: [facility] B Discharge Recommendation: Home with assist PRN, [...] 08/06/24 Therapy Time Individual Co-treatment Time In 0907 Time Out 0943 Minutes 36 Timed Code Treatment Minutes: 36 Minutes (gait; fa) Katina Prather PTA Cosigned by Mukund Murphy, PT at 07/12/2024 11:57 AM EST * Washington Elkins MD - 07/11/2024 11:46 AM EST [facility] - Infectious Diseases Attending Progress Note Subjective: [...] 07/11/2024456 PLT 224 07/11/2024456 LYMPHOPCT 14.2 (L) 06/27/2024 003 MONOPCT 11.0 06/27/202435 BASOPCT 0.2 06/27/2024 003 NEUTROABS 7.7 (H) 06/27/20246 Micro: 07/10 Resp cx: pending ( PNA [...] original note were not included. PHYSICAL THERAPY [facility] Treatment Note Name/MRN: Avery Vasquez ([id number]) Date of : 1950 Age: 74 y.o. [...] Stairs) : 16 JH-HLM -HLM Score: Walked 25 ft or [...] FA Alisha Chowdhury, PT * Laquita Thomas [facility] - 07/10/2024 11:32 AM EST Vancomycin therapy has been discontinued by Leny Huhges DO on 07/10/24. Thank you for the consult. Pharmacy signing off for vancomycin dosing. Laquita Thomas RPh, PharmD Date: 07/10/24 Time: 11:32 AM * Yuly Constantino, PT - 07/10/2024 11:06 AM EST Images from the original note were not included. PHYSICAL THERAPY [facility] Treatment Note Name/MRN: Avery Vasquez ([id number]) Date of : 1950 Age: 74 y.o. [...] Raw Score (No Stairs) : 16 JH-HLM -M Score: Walked 250 ft or more (i.e. [...] (x1 Gait, x1 FA) Yuly Constantino, PT * Alisha Chowdhury, PT - 07/09/2024 10:50 AM EST Images from the original note were not included. PHYSICAL THERAPY [facility] Initial Evaluation Name/MRN: Avery Vasquez ([id number]) Evaluation Date: 07/09/2024 Date of : 1950 Admission Date: 07/06/2024 10:23 PM Age: 74 y.o. Room/Bed: T2/T2 A Discharge Recommendation: (anticipate home with assist [...] Raw Score (No Stairs) : 11 JH-HLM -[facility] Score: Walked 25 ft or more [...] 08/06/24 Therapy Time Individual Co-treatment Time In 0955 Time Out 1028 Minutes 33 Treatment time: 8 min gait Alisha Chowdhury, RICH Patient's Physical Therapy Plan of Care supervision is transferred to a [facility] Physical Therapist. Goals and/or treatment plan was established in collaboration with patient/family/other representatives. * Sam Dupont DO - 07/09/2024 7:01 AM EST Images from the original note were not included. [facility] [address] [place] [address] Patient - Avery Vasquez, Age - 74 y.o. - 1950 Room Number - T2-212/T2-212 A Consulting - Diana Stovall MD Primary Care Physician - [id number] Date of Admission - 07/06/2024 10:23 PM [...] spirometer use Arranging pulmonary follow up in [place] as it is closer to home for the patient. Pulmonary service will sign off, please call with questions. Cosigned by Kvng Anderson MD at 07/09/2024 12:37 PM EST Associated attestation - Kvng Anderson MD - 07/09/2024 12:37 PM EST I have personally performed a [id number]-[id number] diagnostic evaluation on this patient on date of rotuwjf38/4/24. History, labs, imaging studies, and electronic medical record have been reviewed by me. 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 Will arrange outpatient follow up (in [place] due to patient preference) to confirm safety [...] segmental PEs. He was transferred here from [facility] for further management. INJURIES: -Bilateral segmental PEs [...] 110/64 -- -- 81 23 98 % 07/08/24 2000 109/59 -- -- 82 (!) 26 98 [...] Date TROPONINI 0.249 (HH) 07/08/2024 TROPONINI 0.663 () 07/08/2024 TROPONINI 0.568 () 07/07/2024 Urine Culture: No components found for: CURINE Blood Culture: No components found for: CBLOOD, CFUNGUSBL Blood Culture from Central Line: No components found for: CBLOODLN Stool Culture: No components found for: CSTOOL Sputum Culture: No components found for: CSPUTUM Sputum Culture for AFB: No components found for: CAFBSM Wound Culture: N/A Radiology: POCT glucose meter Performed by: [facility], [address] [place] [address] CLIA ID: [id number] POCT glucose meter [facility]: [facility], [address] [place] [address] CLIA ID: [id number] ECG 12 lead SINUS RHYTHM Borderline IVCD Electronically Signed On 07-08-2024 14:06:40 EST by Jada Ayafor ECG 12 lead Sinus tachycardia Borderline IVCD with LAD Low voltage, precordial leads Electronically Signed On 07-08-2024 14:05:54 EST by Jadaaubrey Goinsor POCT glucose meter Performed by: [facility], [address] [place] [address] CLIA ID: [id number] Vascular US lower extremity venous duplex bilateral No evidence of deep vein or superficial vein thrombosis in the right lower extremity. Vessels demonstrate normal compressibility, color filling, and phasic and spontaneous flow. No evidence of deep vein or superficial vein thrombosis in the left lower extremity. Vessels demonstrate normal compressibility, color filling, and phasic and spontaneous flow. POCT glucose meter Performed by: [facility], [address] [place] [address] CLIA ID: [id number] XR chest 1 view Narrative: Patient Name: [...] indicated - Procalcitonin elevated - BC from [place] positive for gram positive cocci, gram negative [...] This note may have been dictated using [employer] Medical Practice Edition 2.6 and/or [employer] Voice Recognition Feature. The document was proofread; however, unrecognized voice recognition gear changer errors may be present. * Mercedes Warren, REINFORCING STEEL WORKER - 07/08/2024 12:58 PM EST [facility] Respiratory Care Department Progress Note As part [...] in the care of this patient, * Tiffanymo Zaragoza, DO - 07/08/2024 10:53 AM EST [...] Hypoxemic respiratory failure Chest CTA 07/06/2024 from [facility], report in chart, positive for segmental PE [...] benefits outweigh risk. 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 [...] Name: Avery Vasquez Patient : 1950 Acct: [id number] Date of Admission: 07/06/2024 Room[facility]: [facility] A PCP: Aidan Argueta MD Chief Complaint: [...] mL, 3 mL, Nebulization, 4x daily, Lavern Esrtada MD labetalol (Normodyne,Trandate) injection 10 mg, 10 [...] % infusion, 50 mL/hr, IntraVENous, Continuous, Diana Stoavll MD, Last Rate: 50mL/hr at 07/08/24 0246, [...] 319 ms QTC Interval 442 ms P [place] 47 degrees QRS [place] -38 degrees T Wave [place] 29 degrees UT Interval 164 ms POCT glucose meter Collection [...] 377 ms QTC Interval 455 ms P [place] 0 degrees QRS [place] 17 degrees T Wave [place] 42 degrees UT Interval 0 ms APTT Collection Time: 07/08/24 [...] 398 ms QTC Interval 446 ms P [place] 35 degrees QRS [place] 10 degrees T Wave [place] 45 degrees UT Interval 189 ms CBC Collection Time: 07/08/24 [...] 75 ALT 45 AST 35 BILITOT 0.6 @[facility]) ABGs:)No results for input(s): PH, PO2, PCO2, [...] and right upper chest wallpain. Of note, [facility] reached out to [facility] ICU yesterday to report positive blood cultures, [...] 12.5 g, 12.5 g, IntraVENous, PRN, Poncho Cotrez MD glucagon (human recombinant) injection 1 mg, 1 mg, IntraMUSCular, PRN, Poncho Cortez MD glucose oral gel 15 g, 15 g, Oral, PRN, Poncho Cortez MD heparin 25,000 units in dextrose 5% 250mL infusion (premix), 5-30 Units/kg/hr, IntraVENous, Continuous, Poncho Cortez MD, Last Rate: 18 mL/hr at 07/08/24 0135, 17 Units/kg/hr at 07/08/24 013 hydrALAZINE (Apresoline) injection 10 mg, 10 mg, IntraVENous, q4h PRN, aLvern Estrada MD HYDROmorphone (Dilaudid) injection 0.25 mg, 0.25 mg, IntraVENous, q3h PRN OR HYDROmorphone (Dilaudid) injection 0.5 mg, 0.5 mg, IntraVENous, q3h PRN, Poncho Cortez MD Insulin Lispro (Humalog) injection 0-12 Units, 0-12 Units, SubCUTAneous, TID WC, 4 Units at 07/08/24 0918 AND Insulin Lispro (Humalog) injection 0-12 Units, 0-12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 osteoarthritis of left shoulder Primary localized osteoarthrosis, shoulder region [facility]* Diagnosis Primary osteoarthritis of left shoulder- Primary Primary localized osteoarthrosis, shoulder region Primary osteoarthritis of left shoulder Primary localized osteoarthrosis, shoulder region documented in this encounter [facility]* Diagnosis Preoperative examination- Primary Preoperative examination, unspecified Primary osteoarthritis of left shoulder Primary localized osteoarthrosis, shoulder region Type 2 diabetes mellitus without complication, without long-term current use of insulin ([facility]) Hypertension, unspecified type Obesity, Class II, BMI 35-39.9 E66.9 Obesity, unspecified Hyperlipidemia, unspecified hyperlipidemia type Primary osteoarthritis of left shoulder Primary localized osteoarthrosis, shoulder region documented [facility] this [facility]* Diagnosis Chronic left shoulder pain Pain in joint, shoulder region Primary osteoarthritis of left shoulder Primary localized osteoarthrosis, shoulder region documented in this encounter [facility]* Diagnosis Left shoulder pain, unspecified chronicity- Primary documented in this encounter [facility]* Diagnosis S/P reverse total shoulder arthroplasty, left- Primary documented in this encounter [facility]* Diagnosis Chronic left shoulder pain- Primary Pain in joint, shoulder region documented in this encounter [facility]* Diagnosis S/P reverse total shoulder arthroplasty, left- Primary documented in this encounter [facility]* Diagnosis Onset Date Resolution Status Spinal stenosis of lumbar region acute Spondylosis of lumbar spine with myelopathy acute Spinal stenosis of lumbar region acute Diabetes mellitus type 2, un controlled, with complications chronic [facility] Work Phone: Evaluation note* Diagnosis Intracranial [...] right, initial encounter [facility] Diagnosis SAH (subarachnoid hemorrhage) (HCC)- Primary Subarachnoid hemorrhage [facility] Diagnosis Acute pulmonary embolism without acute cor pulmonale, unspecified pulmonary embolism type (HCC)- Primary Acute pulmonary embolism without acute cor pulmonale, unspecified pulmonary embolism type (HCC) [facility] Diagnosis Acute pulmonary embolism without acute cor pulmonale, unspecified pulmonary embolism type (HCC)- Primary [facility]* Diagnosis Acute pulmonary embolism without acute cor pulmonale, unspecified pulmonary embolism type (HCC)- Primary [facility]* Diagnosis Onset Date Resolution Status Admit Date Degenerative scoliosis acute Oc tob2024 8:18am Kyphosis acute June 14, 2025 8:18am Leg length discrepancy acute Oc tob2024 8:18am Lumbar degenerative disc disease acute June 14 8:18am Obesity (BMI 30-39.9) acute Oct lilian2024 8:18am Osteopenia determined by x-ray acute June 14, 2025 8:18am [facility] Work Phone: Hospital Discharge instructionsAmbulatory Orders* PT Referral Location: None Selected [facility] Work Phone: Progress note Author Kostas Borja [facility] Note Date/Time June 14, 2025 9 :21am [facility] [address] [place] [id number] OFFICE VISIT Date of Service: 06/14/25 MR#: [id number] Acct: [id number] Name: AVERY VASQUEZ Rep #: [id number] : 1950 Provider: Dr. Leslie Borja MD Age/Sex: 75/M Location[place] [facility] [place] Status: Signed Intake Vital Signs 07/26/24 08:23 [...] you fallen in the past year?: Yes [facility] Medical History (Updated 06/14/25 @ 09:43 by [...] made by me, Dr. Kostas Borja MD 06/14/25823. Part of today?s visit was documented by [...] fallen in the past year?: Yes 06/14/25 0916 <Electronically signed by Kostas Borja MD> Date _ Kostas Mcfadden Signature: Date (if applicable) CC: Dr. Aidan Argueta MD ~ [facility] Work Phone: [employer] for referral (narrative)* Diagnostic Procedure Only (Routine) - Closed Specialty Diagnoses / Procedures Referred By Contac t Referred To Contact XR IMAGING Diagnoses Chronic left shoulder pain Procedures XR SHOULDER GENERAL 3V OR MORE AP/TRUE AP/OTHER LEFT RADEX SHOULDER COMPLETE MINIMUM 2 VIEWS Vicki Dumont DO [address] [place] [address] Xr Imaging Referral ID Status Reason Start Date Expiration Date V isits Requested Visits Authorized [id number] Closed Auto-Generate d Referral 03/05/2022 04/04/2023 1 1 [facility] for referral (narrative)* Diagnostic Procedure Only (Routine) - Closed Specialty Diagnoses / Procedures Referred By Contac t Referred To Contact XR IMAGING Diagnoses Chronic left shoulder pain Procedures XR SHOULDER GENERAL 3V OR MORE AP/TRUE AP/OTHER LEFT RADEX SHOULDER COMPLETE MINIMUM 2 VIEWS Vicki Dumont DO [address] [place] [address] Xr Imaging Referral ID Status Reason Start Date Expiration Date V isits Requested Visits Authorized [id number] Closed Auto-Generate d Referral 03/05/2022 04/04/2023 1 1 T [facility] for referral (narrative)* Diagnostic Procedure Only (Routine) - Pending Review Specialty Diagnoses / Procedures Referred By Contac t Referred To Contact XR IMAGING Diagnoses Left shoulder pain, unspecified chronicity Procedures XR SHOULDER GENERAL 3V OR MORE AP/TRUE AP/OTHER LEFT RADEX SHOULDER COMPLETE MINIMUM 2 VIEWS Bert Ortiz MD [address] [place] [address] [place] [address] Xr Imaging Referral ID Status Reason Start Date Expiration Date Visits Requested Visits Authorized [id number] Pending Review Auto-Generat ed Referral 03/24/2022 04/21/2023 1 1 [facility] for referral (narrative)* Diagnostic Procedure Only (Routine) - Pending Review Specialty Diagnoses / Procedures Referred By Contac t Referred To Contact XR IMAGING Diagnoses Chronic left shoulder pain Procedures XR SHOULDER GENERAL 3V OR MORE AP/TRUE AP/OTHER LEFT RADEX SHOULDER COMPLETE MINIMUM 2 VIEWS Bert Ortiz MD [address] [facility] [address] [address] Xr Imaging Referral ID Status Reason Start Date Expiration Date Visits Requested Visits Authorized [id number] Pending Review Auto-Generat ed Referral 04/14/2022 05/13/2023 1 1 [facility] for referral (narrative)No reason for referral information availableWLutheran Hospital Work Phone: [facility] Narrative* Diagnostic Procedure Only (Routine) - Closed Specialty Diagnoses / Procedures Referred By Contac t Referred To Contact XR IMAGING Diagnoses Chronic left shoulder pain Procedures XR SHOULDER GENERAL 3V OR MORE AP/TRUE AP/OTHER LEFT RADEX SHOULDER COMPLETE MINIMUM 2 VIEWS Vicki Dumont DO [address] [place] [address] Xr Imaging Referral ID Status Reason Start Date Expiration Date V isits Requested Visits Authorized [id number] Closed Auto-Generate d Referral 03/05/2022 04/04/2023 1 1 [facility] for visit Narrative* Diagnostic Procedure Only (Routine) - Closed Specialty Diagnoses / Procedures Referred By Contac t Referred To Contact XR IMAGING Diagnoses Left shoulder pain, unspecified chronicity Procedures XR SHOULDER GENERAL 3V OR MORE AP/TRUE AP/OTHER LEFT RADEX SHOULDER COMPLETE MINIMUM 2 VIEWS Bert Ortiz MD [address] [facility] [address] [place] [address] Xr Imaging Referral ID Status Reason Start Date Expiration Date V isits Requested Visits Authorized [id number] Closed Auto-Generate d Referral 03/24/2022 04/21/2023 1 1 [facility] for visit Narrative* Diagnostic Procedure Only (Routine) - Closed Specialty Diagnoses / Procedures Referred By Contac t Referred To Contact XR IMAGING Diagnoses Chronic left shoulder pain Procedures XR SHOULDER GENERAL 3V OR MORE AP/TRUE AP/OTHER LEFT RADEX SHOULDER COMPLETE MINIMUM 2 VIEWS Bert Ortiz MD [address] [facility] [address] [place] [address] Xr Imaging Referral ID Status Reason Start Date Expiration Date V isits Requested Visits Authorized [id number] Closed Auto-Generate d Referral 04/14/2022 05/13/2023 1 1 [facility] for visit Narrative* Diagnostic Procedure Only (Routine) - Closed Specialty Diagnoses / Procedures Referred By Contac t Referred To Contact XR IMAGING Diagnoses Chronic left shoulder pain Procedures XR SHOULDER GENERAL 3V OR MORE AP/TRUE AP/OTHER LEFT RADEX SHOULDER COMPLETE MINIMUM 2 VIEWS Cindy Sheridan PA-C [address] [place] [address] Xr Imaging Referral ID Status Reason Start Date Expiration Date V isits Requested Visits Authorized [id number] Closed Auto-Generate d Referral 06/01/2022 06/26/2023 1 1 [facility] for visit Narrative* Auth/Cert (Routine) Specialty Diagnoses / Procedures Referred By Contac t Referred To Contact Diagnoses Intracranial bleeding (HCC) intercranial hemorrhage Procedures - Alonso Marin MD [address] [place] [address] Phone: tel: fax: [facility] ICU [address] [place] [address] Phone: tel: Referral ID Status Reason Start Date Expiration Date Visits Re quested Visits Authorized [id number] 1 1 [employer] for visit Narrative* Auth/Cert (Routine) Specialty Diagnoses / Procedures Referred By Contac t Referred To Contact Diagnoses Acute pulmonary embolism without acute cor pulmonale, unspecified pulmonary embolism type (HCC) Bilateral PE Procedures .. Diana Stovall MD [address] [place] [address] Phone: tel: fax: [facility] [address] [place] [address] Phone: tel: Referral ID Status Reason Start Date Expiration Date Visits Re quested Visits Authorized [id number] 1 1 [employer] Summary Purpose Family History No Family History [...] No December 16, 2017 12:56pm Power of County Extension Agent No December 16 12:56pm Documents on File Type Date Recorded Patient Motorman/Woman Expl anation Advance Directive(s) 12/16/2017 5:52 PM Documents on File Type Date Recorded Patient Motorman/Woman Expl anation Advance Directive(s) 12/16/2017 5:52 PM Documents on File Type Date Recorded Patient Motorman/Woman Expl anation Advance Directive(s) 03/10/2022 9:51 AM Advance Directive(s) 12/16/2017 5:52 PM Documents on File Type Date Recorded Patient Motorman/Woman Expl anation Advance Directive(s) 03/19/2022 9:47 AM Advance Directive(s) 03/10/2022 9:51 AM Advance Directive(s) 12/16/2017 5:52 PM Advance Directive Response Recorded Date/ Time Name of Medical Power of County Extension Agent MARGARITA VASQUEZ February 10, 2022 8:38am Advance Directives Yes May 8:11am Living Will No December 16, 2017 12:56pm Power of County Extension Agent No December 16 12:56pm Documents on File Type Date Recorded Patient Motorman/Woman Expl anation Advance Directive(s) 03/19/2022 9:47 AM Advance Directive(s) 03/10/2022 9:51 AM Advance Directive(s) 12/16/2017 5:52 PM Advance Directive Response Recorded Date/ Time Advance Directives Yes May 7:11am Living Will No December 16, 2017 11:56am Power of County Extension Agent No December 16 11:56am Advance Directive Response Recorded Date/ Time Advance Directives Yes May 8:11am Living Will Yes February 10, 2022 8 :38am Power of County Extension Agent Yes February 10, 2022 8:38am Advance Directive Response Recorded Date/ Time Advance Directives Yes May 7:11am Living Will Yes February 10, 2022 7 :38am Power of County Extension Agent Yes February 10, 2022 7:38am Date Activated [...] Terwillrubén Niece Second Alternate Health Care Agent Date Activated Date Inactivated Comments 07/06/2024 11:00 PM 07/12/2024 8:10 PM Date Activated Date Inactivated Comments 06/26/2024 3:03 PM 06/27/2024 4:11 PM Healthcare Agents on File Name Relationship Healthcare Agent Relationship Communication Margarita Vasquez Spouse Health Care Agent Sania Claytno Sister First Alternate Health Care Agent Nisa Terfredericllrubén Niece Second Alternate Health Care Agent Healthcare Agents on File Name Relationship Healthcare Agent Relationship Communication Margarita Vasquez Spouse Health Care Agent Sania Clayton Sister First Alternate Health Care Agent Nisa Terfredericllger Niece Second Alternate Health Care Agent Healthcare [...] section and content) DATE CREATED AUTHOR 02/23/2018 [facility] DATE CREATED AUTHOR AUTHOR'S ORGANIZ ATION 02/23/2018 [facility] DATE CREATED AUTHOR AUTHOR'S ORGANIZ ATION 09/24/2018 [facility] ([place]) DATE CREATED AUTHOR AUTHOR'S ORGANIZ ATION 06/29/[address] [facility] DATE CREATED AUTHOR AUTHOR'S ORGANIZ ATION 06/29/2022 [facility] DATE CREATED AUTHOR AUTHOR'S ORGANIZ ATION 09/17/2022 [facility] DATE CREATED AUTHOR AUTHOR'S ORGANIZ ATION 10/13/2024 [facility] DATE CREATED AUTHOR AUTHOR'S ORGANIZ ATION 07/17/2025 [facility] Goals (unrecognized section and content) Goals [...] or prosecute any alcohol or drug abuse patient.[facility] Hospital[facility] the event this information is protected by the Federal Confidentiality of Alcohol and Drug Abuse Patient Records regulations: The Federal rules restrict any use of the information to criminally investigate or prosecute any alcohol or drug abuse patient.[facility] HospitalIn the event this information is protected by the Federal Confidentiality of Alcohol and Drug Abuse Patient Records regulations: The Federal rules restrict any use of the information to criminally investigate or prosecute any alcohol or drug abuse patient.[facility] HospitalIn the event this information is protected by the Federal Confidentiality of Alcohol and Drug Abuse Patient Records regulations: The Federal rules restrict any use of the information to criminally investigate or prosecute any alcohol or drug abuse patient.[facility] HospitalIn the event this information is protected by the Federal Confidentiality of Alcohol and Drug Abuse Patient Records regulations: The Federal rules restrict any use of the information to criminally investigate or prosecute any alcohol or drug abuse patient.[facility] HospitalIn the event this information is protected by the Federal Confidentiality of Alcohol and Drug Abuse Patient Records regulations: The Federal rules restrict any use of the information to criminally investigate or prosecute any alcohol or drug abuse patient.[facility] HospitalIn the event this information is protected by the Federal Confidentiality of Alcohol and Drug Abuse Patient Records regulations: The Federal rules restrict any use of the information to criminally investigate or prosecute any alcohol or drug abuse patient.[facility] HospitalIn the event this information is protected by the Federal Confidentiality of Alcohol and Drug Abuse Patient Records regulations: The Federal rules restrict any use of the information to criminally investigate or prosecute any alcohol or drug abuse patient.[facility] HospitalIn the event this information is protected by the Federal Confidentiality of Alcohol and Drug Abuse Patient Records regulations: The Federal rules restrict any use of the information to criminally investigate or prosecute any alcohol or drug abuse patient.[facility] HospitalIn the event this information is protected by the Federal Confidentiality of Alcohol and Drug Abuse Patient Records regulations: The Federal rules restrict any use of the information to criminally investigate or prosecute any alcohol or drug abuse patient.[facility] HospitalIn the event this information is protected by the Federal Confidentiality of Alcohol and Drug Abuse Patient Records regulations: The Federal rules restrict any use of the information to criminally investigate or prosecute any alcohol or drug abuse patient.[facility] HospitalIn the event this information is protected by the Federal Confidentiality of Alcohol and Drug Abuse Patient Records regulations: The Federal rules restrict any use of the information to criminally investigate or prosecute any alcohol or drug abuse patient.[facility] Reason for Visit (unrecogniz ed section [...] Care Teams (unrecognized sec tion and content) Merchandising Representative Relationship Specialty Start Date End Date Jair Henning MD [address] [place] [address] PCP - General Family Practice 12/16/17 Merchandising Representative Relationship Specialty Start Date End Date Jair Henning MD [address] [place], [place] [id number] PCP - General Family Practice 12/16/17 Merchandising Representative Relationship Specialty Start Date End Date Jair Henning MD [address] [place] [address] PCP - General Family Practice 12/16/17 Merchandising Representative Relationship Specialty Start Date End Date Jair Henning MD [address] [place] [address] PCP - General Family Practice 12/16/17 Merchandising Representative Relationship Specialty Start Date End Date Jair Henning MD [address] [place] [address] PCP - General Family Practice 12/16/17 Merchandising Representative Relationship Specialty Start Date End Date Jair Henning MD [address] [place] [address] PCP - General Family Practice 12/16/17 Merchandising Representative Relationship Specialty Start Date End Date Jair Henning MD [address] [place] [address] PCP - General Family Practice 12/16/17 Merchandising Representative Relationship Specialty Start Date End Date Jair Henning MD [address] [place] [address] PCP - General Family Medicine 12/16/17 Team [...] Pr ovider, Attending Provider, Referring Provider Active Merchandising Representative Relationship Specialty Start Date End Date Aidan Argueta MD [address] [place] [address] PCP - General Family Medicine 06/26/24 Merchandising Representative Relationship Specialty Start Date End Date Aidan Argueta MD [address] [place] [address] PCP - General Family Medicine 06/26/24 Merchandising Representative Relationship Specialty Start Date End Date Aidan Argueta MD [address] [place] [address] PCP - General Family Medicine 06/26/24 Merchandising Representative Relationship Specialty Start Date End Date Aidan Argueta MD [address] [place] [address] PCP - General Family Medicine 06/26/24 Merchandising Representative Relationship Specialty Start Date End Date Aidan Argueta MD [address] [place] [address] PCP - General Family Medicine 06/26/24 Merchandising Representative Relationship Specialty Start Date End Date Aidan Argueta MD [address] [facility] [address] [place] [phone] PCP - [facility] Medicine 06/26/24 Merchandising Representative Relationship Specialty Start Date End Date Aidan Argueta MD [address] [facility] [address] [place] [phone] PCP - [facility] Medicine 06/26/24 Team Status: Inactive Member Role [...] 2024 End: September 23, 2024 Aidan Pratt NP, MEAT APPRENTICE-C Attending Provider Active S tart: September 23, [...] 2042 (Given - Provider: Solomon Jenkins RN) bacitracin ointment Topical, 3 times daily, First [...] Hu RN) 0818 (Given - Provider: Ming Das RN)1211 (Given - Provider: Ming Das RN) Insulin Lispro (Humalog) injection 0-12 Units(Linked Group [...] 12 Units 2043 (Given - Provider: Solomon Jenkins RN) ipratropium-albuterol (Duo-Neb) 0.5-2.5 mg/3 mL nebulizer solution [...] or split. 2042 (Given - Provider: Solomon Jenkins RN) valsartan (Diovan) tablet 160 mg 160 mg, Oral, 2 times daily, First dose on Tue06/26/24 at 2100 204 (Given - Provider: Solomon Jenkins RN) 0818 [...] sedation for opioid reversal - MUST notify sewing demonstrator provider immediately after first dose, may give [...] Hernandez RN) 0030 (Given - Provider: Nai Quezada RN)0632 (Given - Provider: Nai Quezada RN)1447 (Given - Provider: Kim Guzman RN) apixaban (Eliquis) tablet 5 mg 5 mg, [...] Jaeger RN) 2037 (Given - Provider: Minerva Lorenz RN) dapagliflozin (Farxiga) tablet 10 mg 10 mg, Oral, Daily, First dose on Tue07/11/24 at 1130, Indications: Type 2 Diabetes Mellitus 1211 (Given - Provider: Gayathri Hernandez RN) 1101 (Given - Provider: Kim Guzman RN) glipiZIDE (Glucotrol) tablet 2.5 mg 2.5 mg, Oral, Daily before breakfast, First dose on Tue07/12/24 at 0600, Substituted for glimepiride (Amaryl). 0959 [...] Comment: [phone] (Given - Provider: Patito iKng RN - Comment: [phone] (Canceled Entry [...] Jaeger RN) 1000 (Given - Provider: Gayathri Hernandez, YESSENIA) piperacillin-tazobactam (Zosyn) IVPB 4,500 mg 4,500 mg, [...] RN)1158 (New Bag - Provider: Rickie Adam, RN)1458 (Stopped - Provider: Rickie Adam, RN)1722 (New Bag - Provider: Rickie Adam, RN)2022 (Stopped - Provider: Gregory Jaeger RN)2300 (New Bag - Provider: Gregory Jaeger RN) 0200 (Stopped - Provider: Gregory Jaeger RN)0501 (New Bag - Provider: Gregory Jaeger RN)0801 (Stopped - Provider: Gayathri Hernandez RN)1211 (New Bag - Provider: Gayathri Hernandez, YESSENIA)1511 (Stopped - Provider: Gayathri Hernandez, YESSENIA)1801 (New Bag - Provider: Gayathri Hernandez, YESSENIA)2101 (Stopped - Provider: Minerva Lorenz, YESSENIA) 0046 (New Bag - Provider: Nai Quezada RN)0346 (Stopped - Provider: Nai Quezada RN)0632 (New Bag - Provider: Nai Quezada RN)0932 (Stopped - Provider: Kim Guzman, RN)1117 (New Bag - Provider: Kim Guzman, RN)1417 (Stopped - Provider: Kim Guzman, RN)1815 (Canceled Entry - Provider: Automatic Discharge [...] Gayathri Hernandez RN - Reason: Patient/family refused) 09 (Not Given - Provider: Kim Guzman, YESSENIA - Reason: Patient/family refused) sennosides (Senokot) tablet 17.2 mg 17.2 mg (2 tablet), Oral, 2 times daily, First dose (after last modification) on Tue07/10/24 at 2100 2019 (Given - Provider: Gregory Jaeger RN) 09 (Not Given - Provider: Gayathri Hernandez RN - Reason: Patient/family refused)2037 (Not Given - Provider: Minerva Lorenz RN - Reason: Patient/family refused) 09 (Not Given - Provider: Kim Guzman RN [...] 4 times daily PRN, wheezing, Starting on 07/08/24 at 1300 labetalol (Normodyne,Trandate) injection 10 mg [...] sedation for opioid reversal - MUST notify sewing demonstrator provider immediately after first dose, may give [...] BE BASED ON THE PRIMARY CLINICAL RECORDS. [facility] [employer] [facility]. provides no warranty or guarantee of the accuracy or completeness of information in this document.
--- NOTE | 2025-07-17 07:30 | BD_ITS ---
PROCEDURE: DEXA BONE DENSITY STUDY 07/17/2025 REASON FOR EXAM: OSTEOPOROSIS M, age 75 y/o . Postmenopausal. TECHNIQUE: Procedure Code: BDDBD Modality: DX Procedure: DEXA BONE DENSITY STUDY COMPARISON: None FINDINGS: BMD and T-SCORES Lumbar spine: 1.168 g/cm2, T-score 0.7 Levels: L1 through L4 Left femoral neck: 0.628 g/cm2, T-score -2.2 Femoral neck comparison data not recommended for monitoring change. Delete Left total hip: 0.741 g/cm2, T-score -1.9 Right femoral neck: 0.630 g/cm2, T-score -2.2 Femoral neck comparison data not recommended for monitoring change. Right total hip: 0.730 g/cm2, T-score -2.0 The World Health Organization has defined the following categories based on bone density: Normal bone density: T-score equal to or greater than -1.0 Osteopenia: T-score between -1.0 and -2.5 Osteoporosis: T-score equal to or less than -2.5 FRAX (or Comparable) Fracture Risk Assessment: 10 Year Probability of Fracture: Major Osteoporotic Fracture: 13% Hip Fracture: 4.2% (Note: FRAX is not to be reported in setting of normal range bone density, osteoporosis on DEXA, known history of osteoporosis, prior osteoporotic hip or vertebral fracture, or for any patient undergoing pharmacological treatment for bone loss.) The National Osteoporosis Foundation (NOF) recommends pharmacological treatment for patients with a FRAX 10-year risk of 3% or higher for a hip fracture, or 20% or higher for a major osteoporotic fracture, to prevent osteoporosis and reduce fracture risk. The patient does meet the pharmacological treatment recommendations for prevention of osteoporosis. BD/Dexa Bone Density Study IMPRESSION: OSTEOPENIA. Recommend follow-up as clinically warranted. Reading Location: [place] [id number]
== END | disposition home or self-care (01) ==
PROVIDERS: PCP Family Medicine; Referring Provider Orthopaedic Surgery Orthopaedic Surgery of the Spine; Visit Provider Orthopaedic Surgery Orthopaedic Surgery of the Spine
DX: M81.0 Age-related osteoporosis without current pathological fracture (principal)
CPT/HCPCS: 77080

== ENCOUNTER → 2025-08-12 | Outpatient (CLI) | payer MEDICARE, OTHER, SELFPAY ==
[2025-08-12 10:37] LABS: Hematocrit 41.1 % (40-54); Hemoglobin 13.2 g/dL (13.0-16.5); Immature Granulocytes Count 0.050 X10^3/uL (0.0-0.0); Mean Corp Hgb Conc 32.1 g/dL (32-36); Mean Corpuscular Volume 89.3 fL (80-94); Mean Platelet Vol. 10.2 fl (6.2-12.0); NRBC Flagged by Analyzer 0.3 % (0-5); Platelet Count 239 K/mm3 (150-450); RBC Distribution Width CV 15.4 % (11.6-14.6); RBC Distribution Width SD 50.4 fl (35.1-43.9); Red Blood Count 4.60 M/mm3 (4.6-6.2); White Blood Count 7.9 K/mm3 (4.4-11.0)
[2025-08-12 11:12] LABS: AST(SGOT) 21 U/L (<=37); Alanine Aminotransfer ALT/SGPT 26 U/L (<=46); Albumin, Serum 4.2 g/dL (3.4-4.8); Alkaline Phosphatase 95 U/L (40-129); Anion Gap 9 (5-15); BUN 16 mg/dL (4-19); BUN/Creat Ratio 18.2 RATIO (10-20); Calcium,Total 10.5 mg/dL (7.6-11.0); Carbon Dioxide 24.6 mmol/L (21.0-32.0); Chloride 103 mmol/L (98-108); Cholesterol 124 mg/dL (<=200); Globulin 3.3 g/dL (2.2-4.2); Glucose 138 mg/dL (70-99); Low Density Lipoprotein Calc. 64 mg/dL; Potassium 4.7 mmol/L (3.3-5.1); Triglycerides 69 mg/dL; Very Low Density Lipoprotein 14 mg/dL (5-40); Vitamin D,25 Hydroxy 43.8 ng/mL (30-100); cholesterol:hdl ratio screen 2.69
== END | disposition home or self-care (01) ==
LOC: MFPLAB 08:09
PROVIDERS: PCP Family Medicine; Visit Provider Family Medicine
DX: E55.9 Vitamin D deficiency, unspecified (principal); E11.69 Type 2 diabetes mellitus with other specified complication
CPT/HCPCS: 36415; 80053; 80061; 82306; 83036; 85025